=== PATIENT | female | born 1940 | race Caucasian/White ===

== ENCOUNTER → 2017-10-27 07:21 | Outpatient (CLI) | payer MEDICARE, OTHER, SELFPAY ==
[2017-10-27 07:24] VITALS: BP 123/83; PULSE 58; RESP 18; TEMP 36.5; O2SAT 95; BMI 43.5
[2017-10-27 07:43] LABS: Hematocrit 31.8 % (37-47); Hemoglobin 10.1 g/dl (12.0-15.0); Mean Corp Hgb Conc 31.8 g/gl (32-36); Mean Corpuscular Hgb 32.7 pg (27.0-32.0); Mean Corpuscular Volume 102.9 fL (81-99); Mean Platelet Vol. 10.1 fl (6.2-12.0); Platelet Count 235 K/mm3 (150-450); RBC Distribution Width CV 13.3 % (11.6-14.6); RBC Distribution Width SD 48.9 fl (35.1-43.9); Red Blood Count 3.09 M/mm3 (4.2-5.4); White Blood Count 5.9 K/mm3 (4.4-11.0)
[2017-10-27 07:44] LABS: Scan Indicated on CBC? Y/N NO
[2017-10-27 07:54] LABS: Albumin, Serum 3.2 g/dL (3.2-5.0); BUN 90 mg/dL (7-18); BUN/Creat Ratio 29.5 RATIO (10-20); Calcium,Total 9.5 mg/dL (8.5-10.1); Chloride 105 mmol/L (98-107); Creatinine, Serum 3.05 mg/dL (0.55-1.02); EST Glomerular Filtration Rate 16 mL/min (>60); Est Glom Filt Rate - Afr Amer 19 mL/min (>60); Estimated Creatinine Clearance 14.46 ml/min; Glucose 167 mg/dL (74-106); Phosphorus 4.6 mg/dL (2.5-4.9); Potassium 3.7 mmol/L (3.5-5.1); Sodium Level 141 mmol/L (136-145)
== END ==
PROVIDERS: Visit Provider Internal Medicine Nephrology
DX: N18.4 Chronic kidney disease, stage 4 (severe) (principal); D63.1 Anemia in chronic kidney disease
CPT/HCPCS: 36415; 80069; 85027; 96372; J0885

== ENCOUNTER → 2017-11-10 07:25 | Outpatient (CLI) | payer MEDICARE, OTHER, SELFPAY ==
[2017-10-27 07:24] VITALS: BP 123/83; BMI 43.5
[2017-11-10 07:35] VITALS: BP 130/59; PULSE 80; RESP 16; TEMP 36.7; O2SAT 98; BMI 42.7
[2017-11-10 07:47] LABS: Hematocrit 33.4 % (37-47); Hemoglobin 10.3 g/dl (12.0-15.0)
== END ==
PROVIDERS: Visit Provider Internal Medicine Nephrology
DX: N18.4 Chronic kidney disease, stage 4 (severe) (principal); D63.1 Anemia in chronic kidney disease
CPT/HCPCS: 36415; 85014; 85018; 96372; J0885

== ENCOUNTER → 2017-11-24 07:18 | Outpatient (CLI) | payer MEDICARE, OTHER, SELFPAY ==
[2017-11-24 07:31] VITALS: BP 133/58; PULSE 70; RESP 18; TEMP 36.6; O2SAT 97
[2017-11-24 07:43] LABS: Absolute Lymphocyte Count 1.76 X10^3/ul (0.83-4.51); Absolute Neutrophil Count 5.6 X10^3/uL (2.0-7.7); Basophil# 0.02 X10^3/uL; Basophil% 0.2 % (0-1); Eosinophil# 0.39 X10^3/uL; Eosinophils% 4.7 % (0-5); Hematocrit 31.1 % (37-47); Hemoglobin 9.7 g/dl (12.0-15.0); Lymphocyte # 1.76 X10^3/ul (4.0); Lymphocyte % 21.2 % (19-41); Mean Corp Hgb Conc 31.2 g/gl (32-36); Mean Corpuscular Hgb 31.9 pg (27.0-32.0); Mean Corpuscular Volume 102.3 fL (81-99); Mean Platelet Vol. 9.6 fl (6.2-12.0); Monocyte# 0.55 X10^3/uL; Monocyte% 6.6 % (0-10); Neutrophil # 5.56 X10^3/uL (2.7-7.7); Neutrophil % 66.9 % (47-70); Platelet Count 268 K/mm3 (150-450); RBC Distribution Width CV 14.6 % (11.6-14.6); RBC Distribution Width SD 54.6 fl (35.1-43.9); Red Blood Count 3.04 M/mm3 (4.2-5.4); White Blood Count 8.3 K/mm3 (4.4-11.0)
[2017-11-24 07:44] LABS: POSITIVE COUNT NO; POSITIVE DIFFERENTIAL NO; POSITIVE MORPHOLOGY NO
[2017-11-24 07:57] LABS: Albumin, Serum 2.8 g/dL (3.2-5.0); BUN 66 mg/dL (7-18); BUN/Creat Ratio 29.1 RATIO (10-20); Calcium,Total 8.3 mg/dL (8.5-10.1); Chloride 112 mmol/L (98-107); Creatinine, Serum 2.27 mg/dL (0.55-1.02); EST Glomerular Filtration Rate 22 mL/min (>60); Est Glom Filt Rate - Afr Amer 27 mL/min (>60); Ferritin 101 ng/mL (8-252); Glucose 129 mg/dL (74-106); Iron 58 ug/dL (50-170); Iron Binding Capacity,Total 240 ug/dL (250-450); PERCENT IRON SATURATION 24.2 % (15.0-55.0); Phosphorus 2.1 mg/dL (2.5-4.9); Potassium 4.4 mmol/L (3.5-5.1); Sodium Level 143 mmol/L (136-145)
== END ==
PROVIDERS: Visit Provider Internal Medicine Nephrology
DX: N18.4 Chronic kidney disease, stage 4 (severe) (principal); D63.1 Anemia in chronic kidney disease
CPT/HCPCS: 36415; 80069; 82728; 83540; 83550; 85025; 96372; J0885

== ENCOUNTER → 2017-12-08 07:04 | Outpatient (CLI) | payer MEDICARE, OTHER, SELFPAY ==
[2017-12-08 07:17] VITALS: BP 124/86; PULSE 73; RESP 16; TEMP 36.3; O2SAT 97; BMI 42.4
[2017-12-08 07:34] LABS: Hematocrit 32.1 % (37-47)
== END ==
PROVIDERS: Visit Provider Internal Medicine Nephrology
DX: N18.4 Chronic kidney disease, stage 4 (severe) (principal); D63.1 Anemia in chronic kidney disease
CPT/HCPCS: 36415; 85014; 85018; 96372; J0885

== ENCOUNTER → 2017-12-22 07:21 | Outpatient (CLI) | payer MEDICARE, OTHER, SELFPAY ==
[2017-12-22 07:37] VITALS: BP 113/52; PULSE 68; RESP 18; TEMP 36.8; O2SAT 96; BMI 42.7
[2017-12-22 07:41] LABS: Hematocrit 31.2 % (37-47); Hemoglobin 9.9 g/dl (12.0-15.0); Mean Corp Hgb Conc 31.7 g/gl (32-36); Mean Corpuscular Hgb 32.7 pg (27.0-32.0); Mean Platelet Vol. 10.1 fl (6.2-12.0); Platelet Count 235 K/mm3 (150-450); RBC Distribution Width CV 13.3 % (11.6-14.6); RBC Distribution Width SD 49.2 fl (35.1-43.9); Red Blood Count 3.03 M/mm3 (4.2-5.4); White Blood Count 7.5 K/mm3 (4.4-11.0)
[2017-12-22 07:42] LABS: Scan Indicated on CBC? Y/N NO
[2017-12-22 07:53] LABS: BUN 81 mg/dL (7-18); BUN/Creat Ratio 27.9 RATIO (10-20); Calcium,Total 9.5 mg/dL (8.5-10.1); Chloride 107 mmol/L (98-107); EST Glomerular Filtration Rate 17 mL/min (>60); Est Glom Filt Rate - Afr Amer 20 mL/min (>60); Estimated Creatinine Clearance 15.21 ml/min; Glucose 138 mg/dL (74-106); Phosphorus 3.6 mg/dL (2.5-4.9); Potassium 3.9 mmol/L (3.5-5.1); Sodium Level 142 mmol/L (136-145)
== END ==
PROVIDERS: Visit Provider Internal Medicine Nephrology
DX: N18.4 Chronic kidney disease, stage 4 (severe) (principal); D63.1 Anemia in chronic kidney disease
CPT/HCPCS: 36415; 80069; 85027; 96372; J0885

== ENCOUNTER → 2017-12-30 08:10 | Outpatient (CLI) | payer MEDICARE, OTHER, SELFPAY ==
[2017-12-30 09:30] LABS: ALB/GLOB Ratio 0.9 RATIO (0.9-2.4); AST(SGOT) 12 U/L (15-37); Alanine Aminotransfer ALT/SGPT 24 U/L (13-56); Alkaline Phosphatase 76 U/L (45-117); Anion Gap 9 (5-15); BUN 79 mg/dL (7-18); Calcium,Total 9.8 mg/dL (8.5-10.1); Chloride 110 mmol/L (98-107); Creatinine, Serum 2.82 mg/dL (0.55-1.02); EST Glomerular Filtration Rate 17 mL/min (>60); Est Glom Filt Rate - Afr Amer 21 mL/min (>60); Globulin 3.2 g/dL (2.2-4.2); Glucose 150 mg/dL (74-106); Potassium 3.8 mmol/L (3.5-5.1); Protein, Total 6.2 g/dL (6.4-8.2); Sodium Level 144 mmol/L (136-145)
== END ==
PROVIDERS: Visit Provider Internal Medicine Endocrinology, Diabetes & Metabolism
DX: E11.65 Type 2 diabetes mellitus with hyperglycemia (principal); E78.2 Mixed hyperlipidemia; I10 Essential (primary) hypertension; Z79.899 Other long term (current) drug therapy
CPT/HCPCS: 36415; 80053; 83036

== ENCOUNTER → 2018-01-05 07:14 | Outpatient (CLI) | payer MEDICARE, OTHER, SELFPAY ==
[2018-01-05 07:31] LABS: Hematocrit 31.5 % (37-47); Hemoglobin 9.8 g/dl (12.0-15.0)
[2018-01-05 07:38] VITALS: BP 114/63; PULSE 73; RESP 16; TEMP 36.8
== END ==
PROVIDERS: Visit Provider Internal Medicine Nephrology
DX: N18.4 Chronic kidney disease, stage 4 (severe) (principal); D63.1 Anemia in chronic kidney disease
CPT/HCPCS: 36415; 85014; 85018; 96372; J0885

== ENCOUNTER → 2018-01-19 07:14 | Outpatient (CLI) | payer MEDICARE, OTHER, SELFPAY ==
[2018-01-19 07:32] LABS: Hematocrit 31.8 % (37-47); Hemoglobin 9.9 g/dl (12.0-15.0)
[2018-01-19 07:37] VITALS: BP 135/74; PULSE 76; RESP 16; TEMP 36.9; O2SAT 98; BMI 42.7
[2018-01-19 07:45] LABS: Albumin, Serum 3.1 g/dL (3.2-5.0); BUN 82 mg/dL (7-18); BUN/Creat Ratio 28.5 RATIO (10-20); Calcium,Total 9.7 mg/dL (8.5-10.1); Chloride 110 mmol/L (98-107); Creatinine, Serum 2.88 mg/dL (0.55-1.02); EST Glomerular Filtration Rate 17 mL/min (>60); Est Glom Filt Rate - Afr Amer 20 mL/min (>60); Estimated Creatinine Clearance 15.07 ml/min; Glucose 224 mg/dL (74-106); Phosphorus 3.5 mg/dL (2.5-4.9); Potassium 3.9 mmol/L (3.5-5.1); Sodium Level 142 mmol/L (136-145)
== END ==
PROVIDERS: Visit Provider Internal Medicine Nephrology
DX: N18.4 Chronic kidney disease, stage 4 (severe) (principal); D63.1 Anemia in chronic kidney disease
CPT/HCPCS: 36415; 80069; 85014; 85018; 96372; J0885

== ENCOUNTER → 2018-02-02 07:12 | Outpatient (CLI) | payer MEDICARE, OTHER, SELFPAY ==
[2018-02-02 07:25] VITALS: BP 115/67; PULSE 80; RESP 16; TEMP 36.4; BMI 42.7
[2018-02-02 07:40] LABS: Hematocrit 31.9 % (37-47); Hemoglobin 9.9 g/dl (12.0-15.0); Mean Corpuscular Hgb 31.2 pg (27.0-32.0); Mean Corpuscular Volume 100.6 fL (81-99); Mean Platelet Vol. 10.3 fl (6.2-12.0); Platelet Count 239 K/mm3 (150-450); RBC Distribution Width CV 13.6 % (11.6-14.6); RBC Distribution Width SD 49.7 fl (35.1-43.9); Red Blood Count 3.17 M/mm3 (4.2-5.4); White Blood Count 7.2 K/mm3 (4.4-11.0)
[2018-02-02 08:00] LABS: Scan Indicated on CBC? Y/N NO
== END ==
PROVIDERS: Visit Provider Internal Medicine Nephrology
DX: N18.3 Chronic kidney disease, stage 3 (moderate) (principal); D63.1 Anemia in chronic kidney disease
CPT/HCPCS: 36415; 85027; 96372; J0885

== ENCOUNTER → 2018-02-16 07:11 | Outpatient (CLI) | payer MEDICARE, OTHER, SELFPAY ==
[2018-02-16 07:34] VITALS: BP 147/58; PULSE 70; RESP 16; TEMP 36.6; O2SAT 95; BMI 42.7
[2018-02-16 08:18] LABS: Absolute Lymphocyte Count 1.42 X10^3/ul (0.83-4.51); Absolute Neutrophil Count 4.3 X10^3/uL (2.0-7.7); Basophil# 0.04 X10^3/uL; Basophil% 0.6 % (0-1); Eosinophil# 0.35 X10^3/uL; Eosinophils% 5.3 % (0-5); Hematocrit 31.1 % (37-47); Hemoglobin 9.8 g/dl (12.0-15.0); Lymphocyte # 1.42 X10^3/ul (4.0); Lymphocyte % 21.6 % (19-41); Mean Corp Hgb Conc 31.5 g/gl (32-36); Mean Corpuscular Hgb 31.4 pg (27.0-32.0); Mean Corpuscular Volume 99.7 fL (81-99); Monocyte% 7.6 % (0-10); Neutrophil # 4.25 X10^3/uL (2.7-7.7); Neutrophil % 64.9 % (47-70); Platelet Count 237 K/mm3 (150-450); RBC Distribution Width CV 13.7 % (11.6-14.6); RBC Distribution Width SD 50.3 fl (35.1-43.9); Red Blood Count 3.12 M/mm3 (4.2-5.4); White Blood Count 6.6 K/mm3 (4.4-11.0)
[2018-02-16 08:19] LABS: POSITIVE COUNT NO; POSITIVE DIFFERENTIAL NO; POSITIVE MORPHOLOGY NO
[2018-02-16 08:32] LABS: Albumin, Serum 3.2 g/dL (3.2-5.0); BUN 78 mg/dL (7-18); BUN/Creat Ratio 28.3 RATIO (10-20); Chloride 109 mmol/L (98-107); Creatinine, Serum 2.76 mg/dL (0.55-1.02); EST Glomerular Filtration Rate 18 mL/min (>60); Est Glom Filt Rate - Afr Amer 21 mL/min (>60); Estimated Creatinine Clearance 15.73 ml/min; Glucose 77 mg/dL (74-106); Iron 66 ug/dL (50-170); Iron Binding Capacity,Total 231 ug/dL (250-450); Magnesium 1.7 mg/dL (1.6-2.6); PERCENT IRON SATURATION 28.6 % (15.0-55.0); Phosphorus 3.1 mg/dL (2.5-4.9); Potassium 3.7 mmol/L (3.5-5.1); Sodium Level 142 mmol/L (136-145)
[2018-02-16 11:32] LABS: Protein:Creat Ratio 166 mg/g CRE (0-200)
[2018-02-16 12:30] LABS: Vitamin B12 224 pg/mL (211-911); Vitamin D,25 Hydroxy 14.9 ng/mL (29.95-100.01)
== END ==
PROVIDERS: Internal Medicine Nephrology; Visit Provider Internal Medicine Nephrology
DX: N18.4 Chronic kidney disease, stage 4 (severe) (principal); D63.1 Anemia in chronic kidney disease
CPT/HCPCS: 36415; 80069; 82306; 82570; 82607; 82746; 83540; 83550; 83735; 83970; 84156; 85025; 96372; J0885

== ENCOUNTER → 2018-03-02 11:23 | Outpatient (CLI) | payer MEDICARE, OTHER, SELFPAY ==
[2018-03-02 11:31] VITALS: BP 131/52; PULSE 62; RESP 16; BMI 42.7
[2018-03-02 11:36] LABS: Hematocrit 32.6 % (37-47); Hemoglobin 10.2 g/dl (12.0-15.0); Mean Corp Hgb Conc 31.3 g/gl (32-36); Mean Corpuscular Hgb 31.7 pg (27.0-32.0); Mean Corpuscular Volume 101.2 fL (81-99); Mean Platelet Vol. 9.7 fl (6.2-12.0); Platelet Count 240 K/mm3 (150-450); RBC Distribution Width CV 14.1 % (11.6-14.6); RBC Distribution Width SD 52.3 fl (35.1-43.9); Red Blood Count 3.22 M/mm3 (4.2-5.4)
[2018-03-02 11:39] LABS: Scan Indicated on CBC? Y/N NO
== END ==
PROVIDERS: Visit Provider Internal Medicine Nephrology
DX: N18.4 Chronic kidney disease, stage 4 (severe) (principal); D63.1 Anemia in chronic kidney disease
CPT/HCPCS: 36415; 85027; 96372; J0885

== ENCOUNTER → 2018-03-16 11:16 | Outpatient (CLI) | payer MEDICARE, OTHER, SELFPAY ==
[2018-03-16 11:47] LABS: Hematocrit 31.6 % (37-47)
[2018-03-16 11:56] LABS: Albumin, Serum 3.3 g/dL (3.2-5.0); BUN 84 mg/dL (7-18); BUN/Creat Ratio 28.5 RATIO (10-20); Calcium,Total 9.2 mg/dL (8.5-10.1); Chloride 108 mmol/L (98-107); Creatinine, Serum 2.95 mg/dL (0.55-1.02); EST Glomerular Filtration Rate 16 mL/min (>60); Est Glom Filt Rate - Afr Amer 20 mL/min (>60); Glucose 122 mg/dL (74-106); Phosphorus 3.7 mg/dL (2.5-4.9); Potassium 3.8 mmol/L (3.5-5.1); Sodium Level 142 mmol/L (136-145)
== END ==
PROVIDERS: Visit Provider Internal Medicine Nephrology
DX: N18.4 Chronic kidney disease, stage 4 (severe) (principal); D63.1 Anemia in chronic kidney disease
CPT/HCPCS: 36415; 80069; 85014; 85018; 96372; J0885

== ENCOUNTER → 2018-03-30 11:16 | Outpatient (CLI) | payer MEDICARE, OTHER, SELFPAY ==
[2018-03-30 12:10] LABS: ALB/GLOB Ratio 0.9 RATIO (0.9-2.4); AST(SGOT) 14 U/L (15-37); Alanine Aminotransfer ALT/SGPT 24 U/L (13-56); Albumin, Serum 3.3 g/dL (3.2-5.0); Alkaline Phosphatase 72 U/L (45-117); Anion Gap 9 (5-15); BUN 86 mg/dL (7-18); BUN/Creat Ratio 26.8 RATIO (10-20); Calcium,Total 9.7 mg/dL (8.5-10.1); Chloride 107 mmol/L (98-107); Creatinine, Serum 3.21 mg/dL (0.55-1.02); EST Glomerular Filtration Rate 15 mL/min (>60); Est Glom Filt Rate - Afr Amer 18 mL/min (>60); Globulin 3.6 g/dL (2.2-4.2); Glucose 209 mg/dL (74-106); Potassium 3.8 mmol/L (3.5-5.1); Protein, Total 6.9 g/dL (6.4-8.2); Sodium Level 141 mmol/L (136-145)
[2018-03-30 12:19] LABS: Hemoglobin A1c 5.9 % (4.2-6.3)
[2018-03-30 12:24] LABS: Absolute Lymphocyte Count 0.36 X10^3/ul (0.83-4.51); Absolute Neutrophil Count 9.1 X10^3/uL (2.0-7.7); Basophil# 0.01 X10^3/uL; Basophil% 0.1 % (0-1); Eosinophil# 0.08 X10^3/uL; Eosinophils% 0.8 % (0-5); Hemoglobin 10.5 g/dl (12.0-15.0); Lymphocyte # 0.36 X10^3/ul (4.0); Lymphocyte % 3.6 % (19-41); Mean Corp Hgb Conc 30.9 g/gl (32-36); Mean Corpuscular Hgb 31.2 pg (27.0-32.0); Mean Corpuscular Volume 100.9 fL (81-99); Mean Platelet Vol. 10.5 fl (6.2-12.0); Monocyte# 0.59 X10^3/uL; Monocyte% 5.8 % (0-10); Neutrophil # 9.06 X10^3/uL (2.7-7.7); Neutrophil % 89.5 % (47-70); Platelet Count 243 K/mm3 (150-450); RBC Distribution Width CV 13.9 % (11.6-14.6); RBC Distribution Width SD 51.1 fl (35.1-43.9); Red Blood Count 3.37 M/mm3 (4.2-5.4); White Blood Count 10.1 K/mm3 (4.4-11.0)
[2018-03-30 12:25] LABS: Differential Indicated SCAN CRITERIA MET; POSITIVE COUNT NO; POSITIVE DIFFERENTIAL YES; POSITIVE MORPHOLOGY NO
[2018-03-30 12:35] VITALS: BP 134/82; PULSE 82; RESP 18; TEMP 37; O2SAT 94
== END ==
PROVIDERS: Internal Medicine Endocrinology, Diabetes & Metabolism; Visit Provider Internal Medicine Nephrology
DX: E11.65 Type 2 diabetes mellitus with hyperglycemia (principal); Z79.899 Other long term (current) drug therapy; I10 Essential (primary) hypertension; E78.2 Mixed hyperlipidemia; N18.4 Chronic kidney disease, stage 4 (severe); D63.1 Anemia in chronic kidney disease
CPT/HCPCS: 36415; 80053; 83036; 85025; 96372; J0885

== ENCOUNTER → 2018-04-13 11:17 | Outpatient (CLI) | payer MEDICARE, OTHER, SELFPAY ==
[2018-04-13 11:32] VITALS: BP 114/68; PULSE 61; RESP 16; TEMP 36.2; O2SAT 96; BMI 42.7
[2018-04-13 11:39] LABS: Hematocrit 33.6 % (37-47); Hemoglobin 10.6 g/dl (12.0-15.0)
[2018-04-13 11:59] LABS: Albumin, Serum 3.4 g/dL (3.2-5.0); BUN 83 mg/dL (7-18); BUN/Creat Ratio 28.7 RATIO (10-20); Calcium,Total 11.1 mg/dL (8.5-10.1); Chloride 108 mmol/L (98-107); Creatinine, Serum 2.89 mg/dL (0.55-1.02); EST Glomerular Filtration Rate 17 mL/min (>60); Est Glom Filt Rate - Afr Amer 20 mL/min (>60); Estimated Creatinine Clearance 15.02 ml/min; Glucose 78 mg/dL (74-106); Phosphorus 3.7 mg/dL (2.5-4.9); Potassium 3.9 mmol/L (3.5-5.1); Sodium Level 145 mmol/L (136-145)
== END ==
PROVIDERS: Visit Provider Internal Medicine Nephrology
DX: N18.4 Chronic kidney disease, stage 4 (severe) (principal); D63.1 Anemia in chronic kidney disease
CPT/HCPCS: 36415; 80069; 85014; 85018; 96372; J0885

== ENCOUNTER → 2018-04-27 11:10 | Outpatient (CLI) | payer MEDICARE, OTHER, SELFPAY ==
[2018-04-27 11:40] LABS: Absolute Lymphocyte Count 1.66 X10^3/ul (0.83-4.51); Absolute Neutrophil Count 3.9 X10^3/uL (2.0-7.7); Basophil# 0.05 X10^3/uL; Basophil% 0.8 % (0-1); Eosinophil# 0.35 X10^3/uL; Eosinophils% 5.3 % (0-5); Hematocrit 34.1 % (37-47); Hemoglobin 10.8 g/dl (12.0-15.0); Lymphocyte # 1.66 X10^3/ul (4.0); Lymphocyte % 25.3 % (19-41); Mean Corp Hgb Conc 31.7 g/gl (32-36); Mean Corpuscular Hgb 32.5 pg (27.0-32.0); Mean Corpuscular Volume 102.7 fL (81-99); Mean Platelet Vol. 10.5 fl (6.2-12.0); Monocyte# 0.57 X10^3/uL; Monocyte% 8.7 % (0-10); Neutrophil % 59.6 % (47-70); POSITIVE COUNT NO; POSITIVE DIFFERENTIAL NO; POSITIVE MORPHOLOGY NO; Platelet Count 234 K/mm3 (150-450); RBC Distribution Width CV 13.5 % (11.6-14.6); RBC Distribution Width SD 49.5 fl (35.1-43.9); Red Blood Count 3.32 M/mm3 (4.2-5.4); White Blood Count 6.6 K/mm3 (4.4-11.0)
== END ==
PROVIDERS: Visit Provider Internal Medicine Nephrology
DX: N18.4 Chronic kidney disease, stage 4 (severe) (principal); D63.1 Anemia in chronic kidney disease
CPT/HCPCS: 36415; 85025; 96372; J0885

== ENCOUNTER → 2018-05-11 08:13 | Outpatient (CLI) | payer MEDICARE, OTHER, SELFPAY ==
[2018-05-11 08:23] VITALS: BP 138/57; PULSE 64; RESP 18; TEMP 36.3; O2SAT 96; BMI 42.7
[2018-05-11 08:46] LABS: Hematocrit 32.1 % (37-47); Hemoglobin 10.4 g/dl (12.0-15.0)
[2018-05-11 08:49] LABS: Albumin, Serum 3.1 g/dL (3.2-5.0); BUN 80 mg/dL (7-18); BUN/Creat Ratio 25.8 RATIO (10-20); Calcium,Total 10.2 mg/dL (8.5-10.1); Chloride 107 mmol/L (98-107); EST Glomerular Filtration Rate 15 mL/min (>60); Est Glom Filt Rate - Afr Amer 19 mL/min (>60); Glucose 156 mg/dL (74-106); Phosphorus 3.8 mg/dL (2.5-4.9); Potassium 3.9 mmol/L (3.5-5.1); Sodium Level 143 mmol/L (136-145)
== END ==
PROVIDERS: Internal Medicine Nephrology; Visit Provider Internal Medicine Nephrology
DX: N18.4 Chronic kidney disease, stage 4 (severe) (principal); D63.1 Anemia in chronic kidney disease
CPT/HCPCS: 36415; 80069; 85014; 85018; 96372; J0885

== ENCOUNTER → 2018-05-25 11:15 | Outpatient (CLI) | payer MEDICARE, OTHER, SELFPAY ==
[2018-05-25 11:52] VITALS: BP 117/102; PULSE 67; RESP 16; TEMP 36.2; O2SAT 97; BMI 42.7
[2018-05-25 11:52] LABS: Hematocrit 33.8 % (37-47); Hemoglobin 10.8 g/dl (12.0-15.0); Mean Corpuscular Volume 100.3 fL (81-99); Mean Platelet Vol. 10.1 fl (6.2-12.0); Platelet Count 245 K/mm3 (150-450); RBC Distribution Width CV 14.1 % (11.6-14.6); RBC Distribution Width SD 51.5 fl (35.1-43.9); Red Blood Count 3.37 M/mm3 (4.2-5.4); Scan Indicated on CBC? Y/N NO; White Blood Count 7.9 K/mm3 (4.4-11.0)
[2018-05-25 12:37] LABS: Albumin, Serum 3.5 g/dL (3.2-5.0); BUN 96 mg/dL (7-18); BUN/Creat Ratio 32.8 RATIO (10-20); Calcium,Total 10.7 mg/dL (8.5-10.1); Chloride 108 mmol/L (98-107); Creatinine, Serum 2.93 mg/dL (0.55-1.02); EST Glomerular Filtration Rate 17 mL/min (>60); Est Glom Filt Rate - Afr Amer 20 mL/min (>60); Estimated Creatinine Clearance 14.81 ml/min; Glucose 77 mg/dL (74-106); Phosphorus 3.9 mg/dL (2.5-4.9); Potassium 3.6 mmol/L (3.5-5.1); Sodium Level 143 mmol/L (136-145)
[2018-05-25 12:46] LABS: PTHIN 25.6 pg/mL (18.4-80.1); Vitamin D,25 Hydroxy 13.8 ng/mL (29.95-100.01)
[2018-05-25 13:10] LABS: Color, Urine Yellow (Yellow); Glucose, Dipstick Normal (Normal); Ketone-Dipstick Negative (Negative); Leukocyte Esterase-Dipstick 25 /ul (Negative); Nitrite-Dipstick Negative (Negative); Occult Blood-Urine Negative /ul (Negative); Protein-Dipstick Negative (Negative); Specific Gravity, Urine 1.015 (1.002-1.030); Urine Bilirubin Dipstick Negative (Negative); Urine Clarity Clear (Clear); Urine Urobilinogen Normal (Normal)
[2018-05-25 13:29] LABS: Microalbumin,Random Urine 6.5 mg/L (NO RANGE EST.); Protein, Urine (Random) < 6.0 mg/dL (<11.9); Protein:Creat Ratio 99 mg/g CRE (0-200)
[2018-05-25 14:29] LABS: Ferritin 118 ng/mL (8-252); Iron 88 ug/dL (50-170); Iron Binding Capacity,Total 267 ug/dL (250-450)
== END ==
PROVIDERS: Visit Provider Internal Medicine Nephrology
DX: N18.4 Chronic kidney disease, stage 4 (severe) (principal); N25.81 Secondary hyperparathyroidism of renal origin; D63.1 Anemia in chronic kidney disease
CPT/HCPCS: 36415; 80069; 81002; 82043; 82306; 82570; 82728; 83540; 83550; 83970; 84156; 85027; 96372; J0885

== ENCOUNTER → 2018-06-08 11:10 | Outpatient (CLI) | payer MEDICARE, OTHER, SELFPAY ==
[2018-06-08 11:40] VITALS: BP 107/51; PULSE 55; RESP 15; TEMP 36.2; O2SAT 92; BMI 42.7
[2018-06-08 11:57] LABS: Hematocrit 31.3 % (37-47); Hemoglobin 9.8 g/dl (12.0-15.0)
[2018-06-08 12:11] LABS: Hemoglobin A1c 6.4 % (4.2-6.3)
[2018-06-08 12:19] LABS: Anion Gap 10 (5-15); BUN 89 mg/dL (7-18); BUN/Creat Ratio 31.4 RATIO (10-20); Calcium,Total 8.1 mg/dL (8.5-10.1); Chloride 108 mmol/L (98-107); Creatinine, Serum 2.83 mg/dL (0.55-1.02); EST Glomerular Filtration Rate 17 mL/min (>60); Est Glom Filt Rate - Afr Amer 21 mL/min (>60); Estimated Creatinine Clearance 15.34 ml/min; Glucose 96 mg/dL (74-106); Potassium 3.7 mmol/L (3.5-5.1); Sodium Level 139 mmol/L (136-145); T4 Free Direct 1.04 ng/dL (0.76-1.46); Thyroid Stim Hormone (TSH) 0.93 uIU/mL (0.358-3.74)
== END ==
PROVIDERS: Internal Medicine Nephrology; Visit Provider Internal Medicine Nephrology
DX: N18.4 Chronic kidney disease, stage 4 (severe) (principal); D63.1 Anemia in chronic kidney disease; E11.65 Type 2 diabetes mellitus with hyperglycemia; E78.2 Mixed hyperlipidemia; Z79.899 Other long term (current) drug therapy
CPT/HCPCS: 80048; 83036; 84439; 84443; 85014; 85018; 96372; J0885

== ENCOUNTER → 2018-06-22 11:13 | Outpatient (CLI) | payer MEDICARE, OTHER, SELFPAY ==
[2018-06-22 11:22] VITALS: BP 148/69; PULSE 61; RESP 16; TEMP 36.6; O2SAT 93; BMI 42.7
[2018-06-22 11:35] LABS: Hematocrit 33.2 % (37-47); Hemoglobin 10.2 g/dl (12.0-15.0); Mean Corp Hgb Conc 30.7 g/gl (32-36); Mean Corpuscular Hgb 31.4 pg (27.0-32.0); Mean Corpuscular Volume 102.2 fL (81-99); Mean Platelet Vol. 9.6 fl (6.2-12.0); Platelet Count 237 K/mm3 (150-450); RBC Distribution Width CV 14.3 % (11.6-14.6); RBC Distribution Width SD 53.4 fl (35.1-43.9); Red Blood Count 3.25 M/mm3 (4.2-5.4); White Blood Count 7.2 K/mm3 (4.4-11.0)
[2018-06-22 11:39] LABS: Scan Indicated on CBC? Y/N NO
[2018-06-22 11:47] LABS: Albumin, Serum 3.1 g/dL (3.2-5.0); BUN 76 mg/dL (7-18); BUN/Creat Ratio 30.8 RATIO (10-20); Calcium,Total 9.1 mg/dL (8.5-10.1); Chloride 108 mmol/L (98-107); Creatinine, Serum 2.47 mg/dL (0.55-1.02); EST Glomerular Filtration Rate 20 mL/min (>60); Est Glom Filt Rate - Afr Amer 24 mL/min (>60); Estimated Creatinine Clearance 17.57 ml/min; Glucose 137 mg/dL (74-106); Potassium 3.9 mmol/L (3.5-5.1); Sodium Level 145 mmol/L (136-145)
== END ==
PROVIDERS: Visit Provider Internal Medicine Nephrology
DX: N18.4 Chronic kidney disease, stage 4 (severe) (principal); D63.1 Anemia in chronic kidney disease
CPT/HCPCS: 36415; 80069; 85027; 96372; J0885

== ENCOUNTER → 2018-07-06 07:36 | Outpatient (CLI) | payer MEDICARE, OTHER, SELFPAY ==
[2018-07-06 07:43] VITALS: BP 122/72; PULSE 64; RESP 16; TEMP 36.1; O2SAT 97; BMI 42.7
[2018-07-06 08:09] LABS: Hematocrit 31.7 % (37-47); Hemoglobin 9.8 g/dl (12.0-15.0)
== END ==
PROVIDERS: Internal Medicine Nephrology; Referring Provider Internal Medicine Nephrology; Visit Provider Internal Medicine Nephrology
DX: N18.4 Chronic kidney disease, stage 4 (severe) (principal); D63.1 Anemia in chronic kidney disease
CPT/HCPCS: 36415; 85014; 85018; 96372; J0885

== ENCOUNTER → 2018-07-20 11:16 | Outpatient (CLI) | payer MEDICARE, OTHER, SELFPAY ==
[2018-07-20 11:32] VITALS: BP 132/95; PULSE 56; RESP 16; TEMP 36.6; O2SAT 98; BMI 42.7
[2018-07-20 11:49] LABS: Hematocrit 32.1 % (37-47); Hemoglobin 9.8 g/dl (12.0-15.0); Mean Corp Hgb Conc 30.5 g/gl (32-36); Mean Corpuscular Hgb 31.4 pg (27.0-32.0); Mean Corpuscular Volume 102.9 fL (81-99); Mean Platelet Vol. 10.4 fl (6.2-12.0); Platelet Count 238 K/mm3 (150-450); RBC Distribution Width SD 52.8 fl (35.1-43.9); Red Blood Count 3.12 M/mm3 (4.2-5.4); White Blood Count 7.6 K/mm3 (4.4-11.0)
[2018-07-20 11:50] LABS: Scan Indicated on CBC? Y/N NO
[2018-07-20 12:07] LABS: Color, Urine Yellow (Yellow); Glucose, Dipstick Normal (Normal); Ketone-Dipstick Negative (Negative); Leukocyte Esterase-Dipstick Negative /ul (Negative); Nitrite-Dipstick Negative (Negative); Occult Blood-Urine Negative /ul (Negative); Protein-Dipstick Negative (Negative); Urine Bilirubin Dipstick Negative (Negative); Urine Clarity Clear (Clear); Urine Urobilinogen Normal (Normal)
[2018-07-20 12:09] LABS: Albumin, Serum 3.4 g/dL (3.2-5.0); BUN 73 mg/dL (7-18); BUN/Creat Ratio 29.3 RATIO (10-20); Calcium,Total 8.8 mg/dL (8.5-10.1); Chloride 111 mmol/L (98-107); Creatinine, Serum 2.49 mg/dL (0.55-1.02); EST Glomerular Filtration Rate 20 mL/min (>60); Est Glom Filt Rate - Afr Amer 24 mL/min (>60); Estimated Creatinine Clearance 17.43 ml/min; Glucose 91 mg/dL (74-106); Phosphorus 3.2 mg/dL (2.5-4.9); Potassium 3.9 mmol/L (3.5-5.1); Sodium Level 143 mmol/L (136-145)
[2018-07-20 12:18] LABS: Vitamin D,25 Hydroxy 15.9 ng/mL (29.95-100.01)
[2018-07-20 12:34] LABS: Microalbumin,Random Urine 6.2 mg/L (NO RANGE EST.); Microalbumin:Creatinine Ratio 15.4 mg/g CRE (<30 mg/g CRE); Protein, Urine (Random) < 6.0 mg/dL (<11.9)
== END ==
PROVIDERS: Referring Provider Internal Medicine Nephrology; Visit Provider Internal Medicine Nephrology
DX: N18.4 Chronic kidney disease, stage 4 (severe) (principal); D63.1 Anemia in chronic kidney disease; N25.81 Secondary hyperparathyroidism of renal origin
CPT/HCPCS: 36415; 80069; 81002; 82043; 82306; 82570; 83970; 84156; 85027; 96372; J0885

== ENCOUNTER → 2018-08-03 11:14 | Outpatient (CLI) | payer MEDICARE, OTHER, SELFPAY ==
[2018-08-01 10:55] VITALS: BMI 43.5
[2018-08-03 11:33] LABS: Hematocrit 33.6 % (37-47); Hemoglobin 10.2 g/dl (12.0-15.0)
== END ==
PROVIDERS: Referring Provider Internal Medicine Nephrology; Visit Provider Internal Medicine Nephrology
DX: N18.4 Chronic kidney disease, stage 4 (severe) (principal); D63.1 Anemia in chronic kidney disease
CPT/HCPCS: 36415; 85014; 85018; 96372; J0885

== ENCOUNTER → 2018-08-16 11:14 | Outpatient (CLI) | payer MEDICARE, OTHER, SELFPAY ==
[2018-08-01 10:55] VITALS: BMI 43.5
[2018-08-16 11:49] LABS: Absolute Lymphocyte Count 1.39 X10^3/ul (0.83-4.51); Absolute Neutrophil Count 3.9 X10^3/uL (2.0-7.7); Basophil# 0.03 X10^3/uL; Basophil% 0.5 % (0-1); Eosinophil# 0.27 X10^3/uL; Eosinophils% 4.3 % (0-5); Hematocrit 32.6 % (37-47); Hemoglobin 10.3 g/dl (12.0-15.0); Lymphocyte # 1.39 X10^3/ul (4.0); Lymphocyte % 22.2 % (19-41); Mean Corp Hgb Conc 31.6 g/gl (32-36); Mean Corpuscular Hgb 31.8 pg (27.0-32.0); Mean Corpuscular Volume 100.6 fL (81-99); Mean Platelet Vol. 9.3 fl (6.2-12.0); Monocyte# 0.64 X10^3/uL; Monocyte% 10.2 % (0-10); Neutrophil # 3.92 X10^3/uL (2.7-7.7); Neutrophil % 62.6 % (47-70); POSITIVE COUNT NO; POSITIVE DIFFERENTIAL NO; POSITIVE MORPHOLOGY NO; Platelet Count 236 K/mm3 (150-450); RBC Distribution Width CV 13.6 % (11.6-14.6); RBC Distribution Width SD 50.4 fl (35.1-43.9); Red Blood Count 3.24 M/mm3 (4.2-5.4); White Blood Count 6.3 K/mm3 (4.4-11.0)
[2018-08-16 12:05] VITALS: BP 120/54; PULSE 54; RESP 14; TEMP 36.3; O2SAT 95; BMI 42.7
[2018-08-16 12:06] LABS: Albumin, Serum 3.3 g/dL (3.2-5.0); BUN 73 mg/dL (7-18); BUN/Creat Ratio 26.7 RATIO (10-20); Calcium,Total 9.1 mg/dL (8.5-10.1); Chloride 110 mmol/L (98-107); Creatinine, Serum 2.73 mg/dL (0.55-1.02); EST Glomerular Filtration Rate 18 mL/min (>60); Est Glom Filt Rate - Afr Amer 22 mL/min (>60); Glucose 65 mg/dL (74-106); Phosphorus 3.1 mg/dL (2.5-4.9); Potassium 3.8 mmol/L (3.5-5.1); Sodium Level 145 mmol/L (136-145)
--- OUTSIDE RECORDS SUMMARY | 2018-10-11 13:58 | XMS RPT_ITS ---
:1940 Author Organization [place] Support Name Relationship Address Phone REGGIE RYAN SLEEK FUNER Unavailable [address] [facility] + [place] [id number] BETTE THOMASYL Unavailable [address] + [place] [address] REGGIE DOYLEHAM SLEEK FUNER Unavailable [address] [facility] + [place] [address] BETTE THOMASYL Unavailable [address] + [place] [address] REGGIE YANIRAHAM SLEEK FUNER Unavailable [address] [facility] + [place] [address] BETTE THOMASYL Unavailable [address] + [place] [address] REGGIE BRADHAM SLEEK FUNER Unavailable [address] + [place] [address] MARTHA JANINE Unavailable [address] + [place] [address] REGGIE YANIRAHAM SLEEK FUNER Unavailable [address] [facility] + [place] [address] BETTE THOMASYL Unavailable [address] + [place] [address] REGGIE BRADHAM SLEEK FUNER Unavailable [address] + [place] [address] MARTHA JANINE Unavailable [address] + [place] [address] REGGIE BRADHAM SLEEK FUNER Unavailable [address] [facility] + [place] [address] YOUNG, JANINE Unavailable [address] + [place] [address] REGGIE BRADHAM SLEEK FUNER Unavailable [address] [facility] + [place] [address] YOUNG, JANINE Unavailable [address] + [place] [address] REGGIE BRADHAM SLEEK FUNER Unavailable [address] [facility] + [place] [address] YOUNG, JANINE Unavailable [address] + [place] [address] REGGIE BRADHAM SLEEK FUNER Unavailable [address] [facility] + [place] [address] YOUNG, JANINE Unavailable [address] + [place] [address] REGGIE BRADHAM SLEEK FUNER Unavailable [address] [facility] + [place] [address] YOUNG, NICHOLAS Unavailable [address] + [place] [address] REGGIE BRADHAM SLEEK FUNER Unavailable [address] [place] [address] + [place] [address] YOUNG, NICHOLAS Unavailable [address] + [place] [address] REGGIE BRADHAM SLEEK FUNER Unavailable [address] [facility] + [place] [address] YOUNG, NICHOLAS Unavailable [address] + [place] [address] REGGIE BRADHAM SLEEK FUNER Unavailable [address] [facility] + [place] [address] YOUNG, NICOHLAS Unavailable [address] + [place] [address] REGGIE BRADHAM SLEEK FUNER Unavailable [address] [place] [address] + [place] [address] YOUNG, NICHOLSA Unavailable [address] + [place] [address] REGGIE BRADHAM SLEEK FUNER Unavailable [address] [place] [address] + [place] [address] YOUNG, NICHOLAS Unavailable [address] + [place] [address] REGGIE BRADHAM SLEEK FUNER Unavailable [address] [facility] + [place] [address] MARTHA NICHOLAS Unavailable [address] + [place] [address] REGGIE BRADHAM SLEEK FUNER Unavailable [address] [facility] + [place] [address] YOUNG NICHOLAS Unavailable [address] + [place] [address] REGGIE BRADHAM SLEEK FUNER Unavailable [address] [facility] + [place] [address] MARTHA NICHOLAS Unavailable [address] + [place] [address] REGGIE BRADHAM SLEEK FUNER Unavailable [address] [facility] + [place] [address] MARTHA NICHOLAS Unavailable [address] + [place] [address] REGGIE BRADHAM SLEEK FUNER Unavailable [address] [facility] + [place] [address] MARTHA NICHOLAS Unavailable [address] + [place] [address] REGGIE BRADHAM SLEEK FUNER Unavailable [address] [facility] + [place] [address] MARTHA NICHOLAS Unavailable [address] + [place] [address] REGGIE BRADHAM SLEEK FUNER Unavailable [address] [facility] + [place] [address] YOUNG NICHOLAS Unavailable [address] + [place] [address] REGGIE BRADHAM SLEEK FUNER Unavailable [address] [facility] + [place] [address] YOUNG NICHOLAS Unavailable [address] + [place] [address] REGGIE BRADHAM SLEEK FUNER Unavailable [address] [facility] + [place] [address] BETTE THOMASRYL Unavailable [address] [facility] [facility] [address] + [place] [address] REGGIE RAMÍREZ FUNER Unavailable [address] [facility] + [place] [address] MARTHA NICHOLAS Unavailable [address] [facility] [facility] [address] + [place] [address] REGGIE RAMÍREZ FUNER Unavailable [address] [facility] + [place] [address] MARTHA NICHOLAS Unavailable [address] [facility] [facility] [address] + [place] [address] Care Team Providers Name Role Phone Sushil Odonnell Admitting Unavailable Sushil Odonnell Attending Unavailable Sly Pedersen Primary Care Unavailable Aziza Lester Attending Unavailable Aziza Lester Referring Unavailable Sly Pedersen Primary Care Unavailable Tanphaichitr, Natthavat Attending Unavailable Sly Pedersen Primary [facility] Unavailable Tanphaichitr, Natthavat Attending Unavailable Sly Pedersen Primary Care Unavailable Tanphaichitr, Natthavat Attending Unavailable Sly Pedersen Primary Care Unavailable Tanphaichitr, Natthavat Referring Unavailable Tanphaichitr, Natthavat Attending Unavailable Sly Pedersen [facility] Unavailable Tanphaichitr, Natthavat Attending Unavailable Tanphaichitr, Natthavat Referring Unavailable Sly Pedersen Primary Care Unavailable Tanphaichitr, Natthavat Attending Unavailable Tanphaichitr, Natthavat Referring Unavailable Sly Pedersen Primary Care Unavailable Tanphaichitr, Natthavat Attending Unavailable Tanphaichitr, Natthavat Referring Unavailable Sly Pedersen Primary Care Unavailable Tanphaichitr, Natthavat Attending Unavailable Tanphaichitr, Natthavat Referring Unavailable Sly Pedersen Primary Care Unavailable ZEV PEPE Attending Unavailable ZEV PEPE Referring Unavailable Sly Pedersen Primary [facility] Unavailable Tanphaichitr, Natthavat Attending Unavailable Tanphaichitr, Natthavat Referring Unavailable Sly Pedersen Primary Care Unavailable Tanphaichitr, Natthavat Attending Unavailable Tanphaichitr, Natthavat Referring Unavailable Sly Pedersen Primary Care Unavailable Tanphaichitr, Natthavat Attending Unavailable Tanphaichitr, Natthavat Referring Unavailable Pedersen, Sly Primary Care Unavailable Tanphaichitr, Natthavat Attending Unavailable Tanphaichitr, Natthavat Referring Unavailable Pedersen, Sly Primary Care Unavailable Tanphaichitr, Natthavat Attending Unavailable Tanphaichitr, Natthavat Referring Unavailable Pedersen, Sly Primary Care Unavailable Bakhous, Aziz Attending Unavailable Bakhous, Aziz Referring Unavailable Pedersen, Sly Primary Care Unavailable Bakhous, Aziz Attending Unavailable Bakhous, Aziz Referring Unavailable Pedersen, Sly Primary Care Unavailable Aly, Jayaprakash Attending Unavailable Aly, Jayaprakash Referring Unavailable Pedersen, Sly Primary Care Unavailable Aly, Jayaprakash Attending Unavailable Aly, Jayaprakash Referring Unavailable Pedersen, Sly Primary Care Unavailable Aly, Jayaprakash Attending Unavailable Aly, Jayaprakash Referring Unavailable Pedersen, Sly Primary Care Unavailable Bakhous, Aziz Attending Unavailable Bakhous, Aziz Referring Unavailable Pedersen, Sly Primary Care Unavailable Aly, Jayaprakash Consulting Unavailable Aly, Jayaprakash Attending Unavailable Aly, Jayaprakash Referring Unavailable Pedersen, Sly Primary Care Unavailable Bakhous, Aziz Attending Unavailable Bakhous, Aziz Referring Unavailable Pedersen, Sly Primary Care Unavailable Aly, Jayaprakash Attending Unavailable Aly, Jayaprakash Referring Unavailable Pedersne, Sly Primary Care Unavailable Bakhous, Aziz Attending Unavailable Bakhous, Aziz Referring Unavailable Pedersen, Sly Primary Care Unavailable Aly, Jayaprakash Consulting Unavailable Bakhous, Aziz Attending Unavailable Bakhous, Aziz Referring Unavailable Pedersen Sly Primary Care Unavailable Bakhous, Aziz Attending Unavailable Bakhous, Aziz Referring Unavailable Pedersen, Sly Primary Care Unavailable PROBLEMS PROBLEMS DATE TYPE CONDITION / CODE ATTENDING STATUS SOURCE Unknown D64.9 - Anemia, Aziza Lester Active [place] 8 unspecified / Community D64.9(ICD-10) Hospital Repository Unknown D63.1 - Anemia in [facility], Aziza Active [place] 8 chronic kidney disease / Community D63.1(ICD-10) Hospital Repository Unknown N18.4 - Chronic kidney Aziza Lester Active [place] 8 disease, stage 4 Community (severe) / N18.4(ICD-10) Hospital Repository Unknown 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 / Hospital N25.81(ICD-10) Repository Unknown E11.65 - Type 2 diabetes ZEV PEPE Active [place] 8 mellitus with Community hyperglycemia / Hospital E11.65(ICD-10) Repository Unknown E78.2 - Mixed ZEV PEPE Active [place] 8 hyperlipidemia / Community E78.2(ICD-10) Hospital Repository Unknown I10 - Essential ZEV PEEP Active [place] 8 (primary) hypertension / Community I10(ICD-10) Hospital Repository PROCEDURES PROCEDURES No Procedure Records FoundRESULTS RESULTS HH, HEMOGLOBIN AND Collected: 08/31/2018 Status: F Source: [place] HEMATOCRIT 11:18 AM [facility] REPOSITORY TYPE CODE TESTS RESULT OUT OF RANGE REFERENCE UNITS LAB L100.1300 12.0-15.0 g/dl Low HGB 10.3 LAB L100.1400 37-47 % Low HCT 33.7 Performed By: #### L100.0600 #### [facility] [address] [place] [address], [id number] CBC W/DIFF, AUTOMATED Collected: 08/16/2018 Status: F Source: [place] 11:38 AM [facility] REPOSITORY TYPE CODE TESTS RESULT OUT OF RANGE REFERENCE UNITS LAB L100.1000 4.4-11.0 K/mm3 Normal WBC 6.3 LAB L100.1200 4.2-5.4 M/mm3 Low RBC 3.24 LAB L100.1300 12.0-15.0 g/dl Low HGB 10.3 LAB L100.1400 37-47 % Low HCT 32.6 LAB L100.1500 81-99 fL High MCV 100.6 LAB L100.1600 27.0-32.0 pg Normal MCH 31.8 LAB L100.1700 32-36 g/gl Low MCHC 31.6 LAB L100.1810 11.6-14.6 % Normal RDW CV 13.6 LAB L100.1820 35.1-43.9 fl High RDW SD 50.4 LAB L100.1900 150-450 K/mm3 Normal PLT 236 LAB L100.2000 6.2-12.0 fl Normal MPV 9.3 LAB L100.2100 47-70 % Normal NEUT% 62.6 LAB L100.2200 19-41 % Normal LY% 22.2 LAB L100.2300 0-10 % High MONO% 10.2 LAB L100.2400 0-5 % Normal EO% 4.3 LAB L100.2500 0-1 % Normal BASO% 0.5 LAB L100.2550 0.0-0.9 % Normal IM GRAN % 0.200 Result Comment: IG% - Immature Granulocytes (promyelocytes, myelocytes and metamyelocytes) > 1% indicates that a LEFT SHIFT is Present. LAB L100.2620 2.0-7.7 X10 3/uL Normal Absolute Neut 3.9 LAB L100.2720 0.83-4.51 X10 3/ul Normal Absolute Lymph 1.39 Performed By: #### L100.0100 #### [facility] [address] [place], [place], [address] RENAL PROFILE Collected: 08/16/2018 Status: F Source: [place] 11:38 AM [facility] REPOSITORY TYPE CODE TESTS RESULT OUT OF RANGE REFERENCE UNITS LAB L501.0100 74-106 mg/dL Low GLU 65 Result Comment: Please note revised GLUCOSE reference range effective 2017. LAB L501.1000 7-18 mg/dL High BUN 73 LAB L501.1100 0.55-1.02 mg/dL High CREAT,SERUM 2.73 Result Comment: The validity of the calculated GFR AND GFRAA in patients over 70 years has not been determined. Clinical correlation is essential. LAB L501.1110 >60 mL/min Low EST GFR 18 Result Comment: Non- GFR Calc LAB L501.1115 >60 mL/min Low EST GFR - AA 22 Result Comment: GFR Calc LAB L501.1255 ml/min Normal Estimated CRCL 15.90 LAB L501.1300 10-20 RATIO High BUN/CRE 26.7 LAB L501.1800 3.2-5. g/dL Normal 0 ALB 3.3 LAB L501.2200 8.5-10 mg/dL Normal .1 CA 9.1 LAB L501.2300 2.5-4. mg/dL Normal 9 PHOS 3.1 LAB L501.5300 136-14 mmol/L Normal 5 NA 145 LAB L501.5600 3.5-5. mmol/L Normal 1 K 3.8 LAB L501.5900 98-107 mmol/L High CL 110 LAB L501.6100 21.0-3 mmol/L Normal 2.0 CO2 27.0 Performed By: #### L500.3600 #### [facility] [address] [place], [place], [address] HH, HEMOGLOBIN AND Collected: 08/03/2018 Status: F Source: [place] HEMATOCRIT 11:20 AM [facility] REPOSITORY TYPE CODE TESTS RESULT OUT OF RANGE REFERENCE UNITS LAB L100.1300 12.0-15.0 g/dl Low HGB 10.2 LAB L100.1400 37-47 % Low HCT 33.6 Performed By: #### L100.0600 #### [facility] [address] [place] [address], [id number] CBC-COMPLETE BLOOD CNT Collected: 07/20/2018 Status: F Source: [place] NO DIFF 11:20 AM [facility] REPOSITORY TYPE CODE TESTS RESULT OUT OF RANGE REFERENCE UNITS LAB L100.1000 4.4-11.0 K/mm3 Normal WBC 7.6 LAB L100.1200 4.2-5.4 M/mm3 Low RBC 3.12 LAB L100.1300 12.0-15.0 g/dl Low HGB 9.8 LAB L100.1400 37-47 % Low HCT 32.1 LAB L100.1500 81-99 fL High MCV 102.9 LAB L100.1600 27.0-32.0 pg Normal MCH 31.4 LAB L100.1700 32-36 g/gl Low MCHC 30.5 LAB L100.1810 11.6-14.6 % Normal RDW CV 14.0 LAB L100.1820 35.1-43.9 fl High RDW SD 52.8 LAB L100.1900 150-450 K/mm3 Normal PLT 238 LAB L100.2000 6.2-12.0 fl Normal MPV 10.4 Performed By: #### L100.0500 #### [facility] [address] [place], [address] URINALYSIS, ROUTINE Collected: 07/20/2018 Status: F Source: [place] (DIPSTICK) 11:20 AM [facility] REPOSITORY Order Comment: How was Urine Obtained? CLEAN CATCH TYPE CODE TESTS RESULT OUT OF RANGE REFERENCE UNITS LAB L400.3000 Yellow COLOR Normal Yellow LAB L400.3050 Clear Normal CLARITY Clear LAB L400.3200 Normal mg/dl Normal GLUCOSE, UR Normal LAB L400.3300 Negative mg/dL Normal BILIRUBIN URINE Negative LAB L400.3400 Negative mg/dl Normal KETONE UR Negative LAB L400.3465 1.002-1.030 Normal SP.GR. DIPSTX 1.010 LAB L400.3550 5.0 - 8.0 pH UR Normal 5.0 LAB L400.3600 Negative mg/dl PROT Normal DIPSTX Negative LAB L400.3700 Normal mg/dl Normal UROBILI Normal LAB L400.3750 Negative Normal NITRITE UR Negative LAB L400.3780 Negative /ul Normal OCCULT BLOOD-UR Negative LAB L400.3800 Negative /ul LEUK Normal ESTERASE Negative Performed By: #### L400.2010 #### [facility] [address] [place], [place], [address] RENAL PROFILE Collected: 07/20/2018 Status: F Source: [place] 11:20 AM [facility] REPOSITORY TYPE CODE TESTS RESULT OUT OF RANGE REFERENCE UNITS LAB L501.0100 74-106 mg/dL Normal GLU 91 Result Comment: Please note revised GLUCOSE reference range effective 2017. LAB L501.1000 7-18 mg/dL High BUN 73 LAB L501.1100 0.55-1.02 mg/dL High CREAT,SERUM 2.49 Result Comment: The validity of the calculated GFR AND GFRAA in patients over 70 years has not been determined. Clinical correlation is essential. LAB L501.1110 >60 mL/min Low EST GFR 20 Result Comment: Non- GFR Calc LAB L501.1115 >60 mL/min Low EST GFR - AA 24 Result Comment: GFR Calc LAB L501.1255 ml/min Normal Estimated CRCL 17.43 LAB L501.1300 10-20 RATIO High BUN/CRE 29.3 LAB L501.1800 3.2-5. g/dL Normal 0 ALB 3.4 LAB L501.2200 8.5-10 mg/dL Normal .1 CA 8.8 LAB L501.2300 2.5-4. mg/dL Normal 9 PHOS 3.2 LAB L501.5300 136-14 mmol/L Normal 5 NA 143 LAB L501.5600 3.5-5. mmol/L Normal 1 K 3.9 LAB L501.5900 98-107 mmol/L High CL 111 LAB L501.6100 21.0-3 mmol/L Normal 2.0 CO2 24.0 Performed By: #### L500.3600 #### [facility] [address] [place], [address] PTHIN Collected: 07/20/2018 Status: F Source: [place] 11:20 AM [facility] REPOSITORY TYPE CODE TESTS RESULT OUT OF RANGE REFERENCE UNITS LAB L509.1000 18.4-80.1 pg/mL High PTHIN 185.0 Performed By: #### L509.1000 #### [facility] [address] [place], [address] VITAMIN D,25 HYDROXY Collected: 07/20/2018 Status: F Source: [place] 11:20 AM [facility] REPOSITORY TYPE CODE TESTS RESULT OUT OF REFERENCE UNITS RANGE LAB L506.1000 29.95-100.01 ng/mL Low Vitamin D 15.9 25-OH Result Comment: Vitamin D 25(OH) Status Range Deficiency <20 ng/mL (50nmol/L) Insuffciency 20 - 30 ng/mL (50 - 75 nmol/L) Sufficiency 30 - 100 ng/mL (75 - 250 nmol/L) Toxicity >100 ng/mL (>250 nmol/L) Performed By: #### L506.1000 #### [facility] [address] [place], [address] PROTEIN+CREATININE Collected: Status: F Source: [place] RATIO,URINE 07/20/2018 11:20 AM [facility] REPOSITORY TYPE CODE TESTS RESULT OUT OF RANGE REFERENCE UNITS LAB L501.1200 NO RANGE EST. mg/dL 40.40 Normal UR CREAT LAB L501.1930 <11.9 mg/dL < 6.0 Normal PROTEIN,UR. RAN. LAB L501.1940 0-200 mg/g CRE Test Normal not performed PROT:CRE RATIO Performed By: #### L501.0900, L502.0250 #### [facility] [address] [facility] [place], [address] MICROALB:CREAT Collected: 07/20/2018 Status: F Source: [place] RATIO,RANDOM UR 11:20 AM [facility] REPOSITORY TYPE CODE TESTS RESULT OUT OF RANGE REFERENCE UNITS LAB L502.0500 NO RANGE EST. mg/L Normal 6.2 MICROALBUMIN ,UR LAB L502.0600 <30 mg/g CRE mg/g CRE Normal 15.4 MALB:CREAT Performed By: #### L501.0900, L502.0250 #### [facility] [address] [facility] [place], [address] HH, HEMOGLOBIN AND Collected: 07/06/2018 Status: F Source: [place] HEMATOCRIT 7:48 AM [facility] REPOSITORY TYPE CODE TESTS RESULT OUT OF RANGE REFERENCE UNITS LAB L100.1300 12.0-15.0 g/dl Low HGB 9.8 LAB L100.1400 37-47 % Low HCT 31.7 Performed By: #### L100.0600 #### [facility] [address] [facility]. [place], [place], [address] CBC-COMPLETE BLOOD CNT Collected: 06/22/2018 Status: F Source: [place] NO DIFF 11:21 AM [facility] REPOSITORY TYPE CODE TESTS RESULT OUT OF RANGE REFERENCE UNITS LAB L100.1000 4.4-11.0 K/mm3 Normal WBC 7.2 LAB L100.1200 4.2-5.4 M/mm3 Low RBC 3.25 LAB L100.1300 12.0-15.0 g/dl Low HGB 10.2 LAB L100.1400 37-47 % Low HCT 33.2 LAB L100.1500 81-99 fL High MCV 102.2 LAB L100.1600 27.0-32.0 pg Normal MCH 31.4 LAB L100.1700 32-36 g/gl Low MCHC 30.7 LAB L100.1810 11.6-14.6 % Normal RDW CV 14.3 LAB L100.1820 35.1-43.9 fl High RDW SD 53.4 LAB L100.1900 150-450 K/mm3 Normal PLT 237 LAB L100.2000 6.2-12.0 fl Normal MPV 9.6 Performed By: #### L100.0500 #### [facility] [place], [address] RENAL PROFILE Collected: 06/22/2018 Status: F Source: [place] 11:21 AM [facility] REPOSITORY TYPE CODE TESTS RESULT OUT OF RANGE REFERENCE UNITS LAB L501.0100 74-106 mg/dL High GLU 137 Result Comment: Fasting Glucose result greater than or equal to 126 mg/dL suggests DIABETES MELLITUS per A.D.A. criteria. Please note revised GLUCOSE reference range effective 2017. LAB L501.1000 7-18 mg/dL High BUN 76 LAB L501.1100 0.55-1.02 mg/dL High CREAT,SERUM 2.47 Result Comment: The validity of the calculated GFR AND GFRAA in patients over 70 years has not been determined. Clinical correlation is essential. LAB L501.1110 >60 mL/min Low EST GFR 20 Result Comment: Non- GFR Calc LAB L501.1115 >60 mL/min Low EST GFR - AA 24 Result Comment: GFR Calc LAB L501.1255 ml/min Normal Estimated CRCL 17.57 LAB L501.1300 10-20 RATIO High BUN/CRE 30.8 LAB L501.1800 3.2-5. g/dL Low 0 ALB 3.1 LAB L501.2200 8.5-10 mg/dL Normal .1 CA 9.1 LAB L501.2300 2.5-4. mg/dL Normal 9 PHOS 3.0 LAB L501.5300 136-14 mmol/L Normal 5 NA 145 LAB L501.5600 3.5-5. mmol/L Normal 1 K 3.9 LAB L501.5900 98-107 mmol/L High CL 108 LAB L501.6100 21.0-3 mmol/L Normal 2.0 CO2 26.0 Performed By: #### L500.3600 #### [facility] [address] [place], [address] HH, HEMOGLOBIN AND Collected: 06/08/2018 Status: F Source: [place] HEMATOCRIT 11:45 AM [facility] REPOSITORY TYPE CODE TESTS RESULT OUT OF RANGE REFERENCE UNITS LAB L100.1300 12.0-15.0 g/dl Low HGB 9.8 LAB L100.1400 37-47 % Low HCT 31.3 Performed By: #### L100.0600 #### [facility] [address] [place], [address] HEMOGLOBIN A1C Collected: 06/08/2018 Status: F Source: [place] 11:45 AM [facility] REPOSITORY Order Comment: Comments: DR. PEPE FAX [phone] TYPE CODE TESTS RESULT OUT OF RANGE REFERENCE UNITS LAB L501.9985 4.2-6.3 % High HGB A1C 6.4 Performed By: #### L501.9985 #### [facility] [address] [place], [address] BASIC METABOLIC Collected: 06/08/2018 Status: F Source: [place] PROFILE (BMP) 11:45 AM [facility] REPOSITORY Order Comment: Comments: DR. PEPE FAX [phone] Comments: DR. PEPE FAX [phone] TYPE CODE TESTS RESULT OUT OF RANGE REFERENCE UNITS LAB L501.0100 74-106 mg/dL Normal GLU 96 Result Comment: Please note revised GLUCOSE reference range effective 2017. LAB L501.1000 7-18 mg/dL High BUN 89 LAB L501.1100 0.55-1.02 mg/dL High CREAT,SERUM 2.83 Result Comment: The validity of the calculated GFR AND GFRAA in patients over 70 years has not been determined. Clinical correlation is essential. LAB L501.1110 >60 mL/min Low EST GFR 17 Result Comment: Non- GFR Calc LAB L501.1115 >60 mL/min Low EST GFR - AA 21 Result Comment: GFR Calc LAB L501.1255 ml/min Normal Estimated CRCL 15.34 LAB L501.1300 10-20 RATIO High BUN/CRE 31.4 LAB L501.2200 8.5-10 mg/dL Low .1 CA 8.1 LAB L501.5300 136-14 mmol/L Normal 5 NA 139 LAB L501.5600 3.5-5. mmol/L Normal 1 K 3.7 LAB L501.5900 98-107 mmol/L High CL 108 LAB L501.6100 21.0-3 mmol/L Normal 2.0 CO2 21.0 LAB L501.6200 5-15 Normal GAP 10 Performed By: #### L500.2500, L501.9520, L506.0400 #### [facility] [address] [facility] [place], [address] THYROID STIM HORMONE Collected: 06/08/2018 Status: F Source: [place] (TSH) 11:45 AM [facility] REPOSITORY Order Comment: Comments: DR. PEPE FAX [phone] Comments: DR. PEPE FAX [phone] TYPE CODE TESTS RESULT OUT OF RANGE REFERENCE UNITS LAB L501.9520 0.358-3.74 uIU/mL Normal TSH 0.93 Performed By: #### L500.2500, L501.9520, L506.0400 #### [facility] [address] [facility]. [place], [place], [address] T4 FREE DIRECT Collected: 06/08/2018 Status: F Source: [place] 11:45 AM [facility] REPOSITORY Order Comment: Comments: DR. PEPE FAX [phone] Comments: DR. PEPE FAX [phone] TYPE CODE TESTS RESULT OUT OF RANGE REFERENCE UNITS LAB L506.0400 0.76-1.46 ng/dL Normal T4 FREE 1.04 DIRECT Performed By: #### L500.2500, L501.9520, L506.0400 #### [facility] [address] [place], [address] CBC-COMPLETE BLOOD CNT Collected: 05/25/2018 Status: F Source: [place] NO DIFF 11:20 AM [facility] REPOSITORY TYPE CODE TESTS RESULT OUT OF RANGE REFERENCE UNITS LAB L100.1000 4.4-11.0 K/mm3 Normal WBC 7.9 LAB L100.1200 4.2-5.4 M/mm3 Low RBC 3.37 LAB L100.1300 12.0-15.0 g/dl Low HGB 10.8 LAB L100.1400 37-47 % Low HCT 33.8 LAB L100.1500 81-99 fL High MCV 100.3 LAB L100.1600 27.0-32.0 pg Normal MCH 32.0 LAB L100.1700 32-36 g/gl Normal MCHC 32.0 LAB L100.1810 11.6-14.6 % Normal RDW CV 14.1 LAB L100.1820 35.1-43.9 fl High RDW SD 51.5 LAB L100.1900 150-450 K/mm3 Normal PLT 245 LAB L100.2000 6.2-12.0 fl Normal MPV 10.1 Performed By: #### L100.0500 #### [facility] [address] [place], [address] RENAL PROFILE Collected: 05/25/2018 Status: F Source: [place] 11:20 AM [facility] REPOSITORY Order Comment: PLEASE ADD FE GIGI TIBC TO BLOOD FROM EARLIER TODAY TYPE CODE TESTS RESULT OUT OF RANGE REFERENCE UNITS LAB L501.0100 74-106 mg/dL Normal GLU 77 Result Comment: Please note revised GLUCOSE reference range effective 2017. LAB L501.1000 7-18 mg/dL High BUN 96 LAB L501.1100 0.55-1.02 mg/dL High CREAT,SERUM 2.93 Result Comment: The validity of the calculated GFR AND GFRAA in patients over 70 years has not been determined. Clinical correlation is essential. LAB L501.1110 >60 mL/min Low EST GFR 17 Result Comment: Non- GFR Calc LAB L501.1115 >60 mL/min Low EST GFR - AA 20 Result Comment: GFR Calc LAB L501.1255 ml/min Normal Estimated CRCL 14.81 LAB L501.1300 10-20 RATIO High BUN/CRE 32.8 LAB L501.1800 3.2-5. g/dL Normal 0 ALB 3.5 LAB L501.2200 8.5-10 mg/dL High .1 CA 10.7 LAB L501.2300 2.5-4. mg/dL Normal 9 PHOS 3.9 LAB L501.5300 136-14 mmol/L Normal 5 NA 143 LAB L501.5600 3.5-5. mmol/L Normal 1 K 3.6 LAB L501.5900 98-107 mmol/L High CL 108 LAB L501.6100 21.0-3 mmol/L Normal 2.0 CO2 21.0 Performed By: #### L500.3600, L503.6075, L503.6150, L503.6550 #### [facility] [address] [place], [address] IRON BINDING Collected: 05/25/2018 Status: F Source: [facility] 11:20 AM [facility] REPOSITORY Order Comment: PLEASE ADD FE GIGI TIBC TO BLOOD FROM [facility] TODAY TYPE CODE TESTS RESULT OUT OF RANGE REFERENCE UNITS LAB L503.6075 250-450 ug/dL Normal TIBC 267 Performed By: #### L500.3600, L503.6075, L503.6150, L503.6550 #### [facility] [address] [place], [place], [address] IRON Collected: 05/25/2018 Status: F Source: [place]ERRAL 11:20 AM [facility] REPOSITORY Order Comment: PLEASE ADD FE GIGI TIBC TO BLOOD FROM EARLIER TODAY TYPE CODE TESTS RESULT OUT OF RANGE REFERENCE UNITS LAB L503.6150 50-170 ug/dL Normal IRON 88 Performed By: #### L500.3600, L503.6075, L503.6150, L503.6550 #### [facility] [address] [place], [address] FERRITIN Collected: 05/25/2018 Status: F Source: TERRAL 11:20 AM [facility] REPOSITORY Order Comment: PLEASE ADD FE GIGI TIBC TO BLOOD FROM EARLIER TODAY TYPE CODE TESTS RESULT OUT OF RANGE REFERENCE UNITS LAB L503.6550 8-252 ng/mL Normal FERRITIN 118 Performed By: #### L500.3600, L503.6075, L503.6150, L503.6550 #### [facility] [address] [place], [address] VITAMIN D,25 HYDROXY Collected: 05/25/2018 Status: F Source: [place] 11:20 AM [facility] REPOSITORY TYPE CODE TESTS RESULT OUT OF REFERENCE UNITS RANGE LAB L506.1000 29.95-100.01 ng/mL Low Vitamin D 13.8 25-OH Result Comment: Vitamin D 25(OH) Status Range Deficiency <20 ng/mL (50nmol/L) Insuffciency 20 - 30 ng/mL (50 - 75 nmol/L) Sufficiency 30 - 100 ng/mL (75 - 250 nmol/L) Toxicity >100 ng/mL (>250 nmol/L) Performed By: #### L506.1000 #### [facility] [address] [place], [address] PTHIN Collected: 05/25/2018 Status: F Source: [place] 11:20 AM [facility] REPOSITORY TYPE CODE TESTS RESULT OUT OF RANGE REFERENCE UNITS LAB L509.1000 18.4-80.1 pg/mL Normal PTHIN 25.6 Performed By: #### L509.1000 #### [facility] [address] [place], [address] URINALYSIS, ROUTINE Collected: 05/25/2018 Status: F Source: [place] (DIPSTICK) 11:20 AM [facility] REPOSITORY Order Comment: How was Urine Obtained? CLEAN CATCH TYPE CODE TESTS RESULT OUT OF RANGE REFERENCE UNITS LAB L400.3000 Yellow COLOR Normal Yellow LAB L400.3050 Clear Normal CLARITY Clear LAB L400.3200 Normal mg/dl Normal GLUCOSE, UR Normal LAB L400.3300 Negative mg/dL Normal BILIRUBIN URINE Negative LAB L400.3400 Negative mg/dl Normal KETONE UR Negative LAB L400.3465 1.002-1.030 Normal SP.GR. DIPSTX 1.015 LAB L400.3550 5.0 - 8.0 pH UR Normal 5.0 LAB L400.3600 Negative mg/dl PROT Normal DIPSTX Negative LAB L400.3700 Normal mg/dl Normal UROBILI Normal LAB L400.3750 Negative Normal NITRITE UR Negative LAB L400.3780 Negative /ul Normal OCCULT BLOOD-UR Negative LAB L400.3800 Negative /ul High LEUK 25 ESTERASE Performed By: #### L400.2010 #### [facility] [address] [place], [address] PROTEIN+CREATININE Collected: Status: F Source: [place] RATIO,URINE 05/25/2018 11:20 AM [facility] REPOSITORY TYPE CODE TESTS RESULT OUT OF RANGE REFERENCE UNITS LAB L501.1200 NO RANGE EST. mg/dL Normal UR CREAT 58.70 LAB L501.1930 <11.9 mg/dL Normal < 6.0 PROTEIN,UR.R AN. LAB L501.1940 0-200 mg/g CRE Normal PROT:CRE 99 RATIO Performed By: #### L501.0900, L502.0500 #### [facility] [address] [place], [address] MICROALBUMIN,RANDOM URINE Collected: Status: F Source: [place] 05/25/2018 11:20 AM [facility] REPOSITORY TYPE CODE TESTS RESULT OUT OF RANGE REFERENCE UNITS LAB L502.0500 NO RANGE EST. mg/L Normal 6.5 MICROALBUMIN ,UR Performed By: #### L501.0900, L502.0500 #### [facility] [address] [facility] [place], [address] HH, HEMOGLOBIN AND Collected: 05/11/2018 Status: F Source: [place] HEMATOCRIT 8:25 AM [facility] REPOSITORY TYPE CODE TESTS RESULT OUT OF RANGE REFERENCE UNITS LAB L100.1300 12.0-15.0 g/dl Low HGB 10.4 LAB L100.1400 37-47 % Low HCT 32.1 Performed By: #### L100.0600 #### [facility] [address] [place], [address] RENAL PROFILE Collected: 05/11/2018 Status: F Source: [place] 8:25 AM [facility] REPOSITORY TYPE CODE TESTS RESULT OUT OF RANGE REFERENCE UNITS LAB L501.0100 74-106 mg/dL High GLU 156 Result Comment: Fasting Glucose result greater than or equal to 126 mg/dL suggests DIABETES MELLITUS per A.D.A. criteria. Please note revised GLUCOSE reference range effective 2017. LAB L501.1000 7-18 mg/dL High BUN 80 LAB L501.1100 0.55-1.02 mg/dL High CREAT,SERUM 3.10 Result Comment: The validity of the calculated GFR AND GFRAA in patients over 70 years has not been determined. Clinical correlation is essential. LAB L501.1110 >60 mL/min Low EST GFR 15 Result Comment: Non- GFR Calc LAB L501.1115 >60 mL/min Low EST GFR - AA 19 Result Comment: GFR Calc LAB L501.1255 ml/min Normal Estimated CRCL 14.00 LAB L501.1300 10-20 RATIO High BUN/CRE 25.8 LAB L501.1800 3.2-5. g/dL Low 0 ALB 3.1 LAB L501.2200 8.5-10 mg/dL High .1 CA 10.2 LAB L501.2300 2.5-4. mg/dL Normal 9 PHOS 3.8 LAB L501.5300 136-14 mmol/L Normal 5 NA 143 LAB L501.5600 3.5-5. mmol/L Normal 1 K 3.9 LAB L501.5900 98-107 mmol/L Normal CL 107 LAB L501.6100 21.0-3 mmol/L Normal 2.0 CO2 23.0 Performed By: #### L500.3600 #### [facility] [address] [place], [address] CBC W/DIFF, AUTOMATED Collected: 04/27/2018 Status: F Source: [place] 11:28 AM [facility] REPOSITORY TYPE CODE TESTS RESULT OUT OF RANGE REFERENCE UNITS LAB L100.1000 4.4-11.0 K/mm3 Normal WBC 6.6 LAB L100.1200 4.2-5.4 M/mm3 Low RBC 3.32 LAB L100.1300 12.0-15.0 g/dl Low HGB 10.8 LAB L100.1400 37-47 % Low HCT 34.1 LAB L100.1500 81-99 fL High MCV 102.7 LAB L100.1600 27.0-32.0 pg High MCH 32.5 LAB L100.1700 32-36 g/gl Low MCHC 31.7 LAB L100.1810 11.6-14.6 % Normal RDW CV 13.5 LAB L100.1820 35.1-43.9 fl High RDW SD 49.5 LAB L100.1900 150-450 K/mm3 Normal PLT 234 LAB L100.2000 6.2-12.0 fl Normal MPV 10.5 LAB L100.2100 47-70 % Normal NEUT% 59.6 LAB L100.2200 19-41 % Normal LY% 25.3 LAB L100.2300 0-10 % Normal MONO% 8.7 LAB L100.2400 0-5 % High EO% 5.3 LAB L100.2500 0-1 % Normal BASO% 0.8 LAB L100.2550 0.0-0.9 % Normal IM GRAN % 0.300 Result Comment: IG% - Immature Granulocytes (promyelocytes, myelocytes and metamyelocytes) > 1% indicates that a LEFT SHIFT is Present. LAB L100.2620 2.0-7.7 X10 3/uL Normal Absolute Neut 3.9 LAB L100.2720 0.83-4.51 X10 3/ul Normal Absolute Lymph 1.66 Performed By: #### L100.0100 #### [facility] [address] [facility] [place], [address] HH, HEMOGLOBIN AND Collected: 04/13/2018 Status: F Source: [place] HEMATOCRIT 11:23 AM [facility] REPOSITORY TYPE CODE TESTS RESULT OUT OF RANGE REFERENCE UNITS LAB L100.1300 12.0-15.0 g/dl Low HGB 10.6 LAB L100.1400 37-47 % Low HCT 33.6 Performed By: #### L100.0600 #### [facility] [address] [place], [place], [address] RENAL PROFILE Collected: 04/13/2018 Status: F Source: [place] 11:23 AM [facility] REPOSITORY TYPE CODE TESTS RESULT OUT OF RANGE REFERENCE UNITS LAB L501.0100 74-106 mg/dL Normal GLU 78 Result Comment: Please note revised GLUCOSE reference range effective 2017. LAB L501.1000 7-18 mg/dL High BUN 83 LAB L501.1100 0.55-1.02 mg/dL High CREAT,SERUM 2.89 Result Comment: The validity of the calculated GFR AND GFRAA in patients over 70 years has not been determined. Clinical correlation is essential. LAB L501.1110 >60 mL/min Low EST GFR 17 Result Comment: Non- GFR Calc LAB L501.1115 >60 mL/min Low EST GFR - AA 20 Result Comment: GFR Calc LAB L501.1255 ml/min Normal Estimated CRCL 15.02 LAB L501.1300 10-20 RATIO High BUN/CRE 28.7 LAB L501.1800 3.2-5. g/dL Normal 0 ALB 3.4 LAB L501.2200 8.5-10 mg/dL High .1 CA 11.1 LAB L501.2300 2.5-4. mg/dL Normal 9 PHOS 3.7 LAB L501.5300 136-14 mmol/L Normal 5 NA 145 LAB L501.5600 3.5-5. mmol/L Normal 1 K 3.9 LAB L501.5900 98-107 mmol/L High CL 108 LAB L501.6100 21.0-3 mmol/L Normal 2.0 CO2 25.0 Performed By: #### L500.3600 #### [facility] [address] [place], [place], [address] COMPREHENSIVE METABOLIC Collected: 03/30/2018 Status: F Source: [facility] 11:45 AM [facility] REPOSITORY TYPE CODE TESTS RESULT OUT OF RANGE REFERENCE UNITS LAB L501.0100 74-106 mg/dL High GLU 209 Result Comment: Glucose result greater than or equal to 200 mg/dL suggests DIABETES MELLITUS per A.D.A. criteria. Please note revised GLUCOSE reference range effective 2017. LAB L501.1000 7-18 mg/dL High BUN 86 LAB L501.1100 0.55-1.02 mg/dL High CREAT,SERUM 3.21 Result Comment: The validity of the calculated GFR AND GFRAA in patients over 70 years has not been determined. Clinical correlation is essential. LAB L501.1110 >60 mL/min Low EST GFR 15 Result Comment: Non- GFR Calc LAB L501.1115 >60 mL/min Low EST GFR - AA 18 Result Comment: GFR Calc LAB L501.1300 10-20 RATIO High BUN/CRE 26.8 LAB L501.1500 6.4-8.2 g/dL T Normal PROT 6.9 LAB L501.1800 3.2-5.0 g/dL Normal ALB 3.3 LAB L501.1950 2.2-4.2 g/dL Normal GLOB 3.6 LAB L501.2000 0.9-2.4 RATIO Normal A/G 0.9 LAB L501.2200 8.5-10.1 mg/dL CA Normal 9.7 LAB L501.4100 15-37 U/L Low AST 14 LAB L501.4305 45-117 U/L Normal ALK P 72 LAB L501.4405 13-56 U/L Normal ALT 24 LAB L501.4600 0.20-1.00 mg/dL T Normal BILI 0.50 LAB L501.5300 136-145 mmol/L NA Normal 141 LAB L501.5600 3.5-5.1 mmol/L K Normal 3.8 LAB L501.5900 98-107 mmol/L CL Normal 107 LAB L501.6100 21.0-32.0 mmol/L Normal CO2 25.0 LAB L501.6200 5-15 Normal GAP 9 Performed By: #### L500.4050 #### [facility] [address], [place], [address] HEMOGLOBIN A1C Collected: 03/30/2018 Status: F Source: [place] 11:45 AM [facility] REPOSITORY TYPE CODE TESTS RESULT OUT OF RANGE REFERENCE UNITS LAB L501.9985 4.2-6.3 % Normal HGB A1C 5.9 Performed By: #### L501.9985 #### [facility] [address] [place], [address] CBC W/DIFF, AUTOMATED Collected: 03/30/2018 Status: F Source: [place] 11:37 AM [facility] REPOSITORY TYPE CODE TESTS RESULT OUT OF RANGE REFERENCE UNITS LAB L100.1000 4.4-11.0 K/mm3 Normal WBC 10.1 LAB L100.1200 4.2-5.4 M/mm3 Low RBC 3.37 LAB L100.1300 12.0-15.0 g/dl Low HGB 10.5 LAB L100.1400 37-47 % Low HCT 34.0 LAB L100.1500 81-99 fL High MCV 100.9 LAB L100.1600 27.0-32.0 pg Normal MCH 31.2 LAB L100.1700 32-36 g/gl Low MCHC 30.9 LAB L100.1810 11.6-14.6 % Normal RDW CV 13.9 LAB L100.1820 35.1-43.9 fl High RDW SD 51.1 LAB L100.1900 150-450 K/mm3 Normal PLT 243 LAB L100.2000 6.2-12.0 fl Normal MPV 10.5 LAB L100.2100 47-70 % High NEUT% 89.5 LAB L100.2200 19-41 % Low LY% 3.6 LAB L100.2300 0-10 % Normal MONO% 5.8 LAB L100.2400 0-5 % Normal EO% 0.8 LAB L100.2500 0-1 % Normal BASO% 0.1 LAB L100.2550 0.0-0.9 % Normal IM GRAN % 0.200 Result Comment: IG% - Immature Granulocytes (promyelocytes, myelocytes and metamyelocytes) > 1% indicates that a LEFT SHIFT is Present. LAB L100.2620 2.0-7.7 X10 3/uL High Absolute Neut 9.1 LAB L100.2720 0.83-4.51 X10 3/ul Low Absolute Lymph 0.36 LAB L100.4500 SMEAR Normal COMMENT Result Comment: LYMPHOPENIA NOTED Performed By: #### L100.0100 #### [facility] [address] [facility] [place], [place], [address] HH, HEMOGLOBIN AND Collected: 03/16/2018 Status: F Source: [place] HEMATOCRIT 11:28 AM [facility] REPOSITORY TYPE CODE TESTS RESULT OUT OF RANGE REFERENCE UNITS LAB L100.1300 12.0-15.0 g/dl Low HGB 10.0 LAB L100.1400 37-47 % Low HCT 31.6 Performed By: #### L100.0600 #### [facility] [address] [place], [place], [address] RENAL PROFILE Collected: 03/16/2018 Status: F Source: [place] 11:28 AM [facility] REPOSITORY TYPE CODE TESTS RESULT OUT OF RANGE REFERENCE UNITS LAB L501.0100 74-106 mg/dL High GLU 122 Result Comment: Fasting Glucose result from 100 to 125 mg/dL suggests IMPAIRED HOMEOSTASIS per A.D.A. criteria. Please note revised GLUCOSE reference range effective 2017. LAB L501.1000 7-18 mg/dL High BUN 84 LAB L501.1100 0.55-1.02 mg/dL High CREAT,SERUM 2.95 Result Comment: The validity of the calculated GFR AND GFRAA in patients over 70 years has not been determined. Clinical correlation is essential. LAB L501.1110 >60 mL/min Low EST GFR 16 Result Comment: Non- GFR Calc LAB L501.1115 >60 mL/min Low EST GFR - AA 20 Result Comment: GFR Calc LAB L501.1300 10-20 RATIO High BUN/CRE 28.5 LAB L501.1800 3.2-5.0 g/dL Normal ALB 3.3 LAB L501.2200 8.5-10.1 mg/dL CA Normal 9.2 LAB L501.2300 2.5-4.9 mg/dL Normal PHOS 3.7 LAB L501.5300 136-145 mmol/L NA Normal 142 LAB L501.5600 3.5-5.1 mmol/L K Normal 3.8 LAB L501.5900 98-107 mmol/L High CL 108 LAB L501.6100 21.0-32.0 mmol/L Normal CO2 23.0 Performed By: #### L500.3600 #### [facility] [place], [address] CBC-COMPLETE BLOOD CNT Collected: 03/02/2018 Status: F Source: [place] NO DIFF 11:26 AM [facility] REPOSITORY TYPE CODE TESTS RESULT OUT OF RANGE REFERENCE UNITS LAB L100.1000 4.4-11.0 K/mm3 Normal WBC 8.0 LAB L100.1200 4.2-5.4 M/mm3 Low RBC 3.22 LAB L100.1300 12.0-15.0 g/dl Low HGB 10.2 LAB L100.1400 37-47 % Low HCT 32.6 LAB L100.1500 81-99 fL High MCV 101.2 LAB L100.1600 27.0-32.0 pg Normal MCH 31.7 LAB L100.1700 32-36 g/gl Low MCHC 31.3 LAB L100.1810 11.6-14.6 % Normal RDW CV 14.1 LAB L100.1820 35.1-43.9 fl High RDW SD 52.3 LAB L100.1900 150-450 K/mm3 Normal PLT 240 LAB L100.2000 6.2-12.0 fl Normal MPV 9.7 Performed By: #### L100.0500 #### [facility] [address] [place], [address] PROTEIN+CREATININE Collected: Status: F Source: [facility],URINE 02/16/2018 7:58 AM [facility] REPOSITORY TYPE CODE TESTS RESULT OUT OF RANGE REFERENCE UNITS LAB L501.1200 NO RANGE EST. mg/dL Normal UR CREAT 78.40 LAB L501.1930 <11.9 mg/dL High 13.0 PROTEIN,UR.R AN. LAB L501.1940 0-200 mg/g CRE Normal PROT:CRE 166 RATIO Performed By: #### L501.0900 #### [facility] [address] [place], [address] CBC W/DIFF, AUTOMATED Collected: 02/16/2018 Status: F Source: [place] 7:45 AM [facility] REPOSITORY TYPE CODE TESTS RESULT OUT OF RANGE REFERENCE UNITS LAB L100.1000 4.4-11.0 K/mm3 Normal WBC 6.6 LAB L100.1200 4.2-5.4 M/mm3 Low RBC 3.12 LAB L100.1300 12.0-15.0 g/dl Low HGB 9.8 LAB L100.1400 37-47 % Low HCT 31.1 LAB L100.1500 81-99 fL High MCV 99.7 LAB L100.1600 27.0-32.0 pg Normal MCH 31.4 LAB L100.1700 32-36 g/gl Low MCHC 31.5 LAB L100.1810 11.6-14.6 % Normal RDW CV 13.7 LAB L100.1820 35.1-43.9 fl High RDW SD 50.3 LAB L100.1900 150-450 K/mm3 Normal PLT 237 LAB L100.2000 6.2-12.0 fl Normal MPV 10.0 LAB L100.2100 47-70 % Normal NEUT% 64.9 LAB L100.2200 19-41 % Normal LY% 21.6 LAB L100.2300 0-10 % Normal MONO% 7.6 LAB L100.2400 0-5 % High EO% 5.3 LAB L100.2500 0-1 % Normal BASO% 0.6 LAB L100.2550 0.0-0.9 % Normal IM GRAN % 0.000 Result Comment: IG% - Immature Granulocytes (promyelocytes, myelocytes and metamyelocytes) > 1% indicates that a LEFT SHIFT is Present. LAB L100.2620 2.0-7.7 X10 3/uL Normal Absolute Neut 4.3 LAB L100.2720 0.83-4.51 X10 3/ul Normal Absolute Lymph 1.42 Performed By: #### L100.0100, L500.3600, L501.5200, L503.6030, L506.0250 #### [facility] [address] [place], [place], [id number] RENAL PROFILE Collected: 02/16/2018 Status: F Source: [place] 7:45 AM [facility] REPOSITORY TYPE CODE TESTS RESULT OUT OF RANGE REFERENCE UNITS LAB L501.0100 74-106 mg/dL Normal GLU 77 Result Comment: Please note revised GLUCOSE reference range effective 2017. LAB L501.1000 7-18 mg/dL High BUN 78 LAB L501.1100 0.55-1.02 mg/dL High CREAT,SERUM 2.76 Result Comment: The validity of the calculated GFR AND GFRAA in patients over 70 years has not been determined. Clinical correlation is essential. LAB L501.1110 >60 mL/min Low EST GFR 18 Result Comment: Non- GFR Calc LAB L501.1115 >60 mL/min Low EST GFR - AA 21 Result Comment: GFR Calc LAB L501.1255 ml/min Normal Estimated CRCL 15.73 LAB L501.1300 10-20 RATIO High BUN/CRE 28.3 LAB L501.1800 3.2-5. g/dL Normal 0 ALB 3.2 LAB L501.2200 8.5-10 mg/dL Normal .1 CA 9.0 LAB L501.2300 2.5-4. mg/dL Normal 9 PHOS 3.1 LAB L501.5300 136-14 mmol/L Normal 5 NA 142 LAB L501.5600 3.5-5. mmol/L Normal 1 K 3.7 LAB L501.5900 98-107 mmol/L High CL 109 LAB L501.6100 21.0-3 mmol/L Normal 2.0 CO2 25.0 Performed By: #### L100.0100, L500.3600, L501.5200, L503.6030, L506.0250 #### [facility] [address] [facility] [place], [place], [id number] MAGNESIUM Collected: 02/16/2018 Status: F Source: [place] 7:45 AM [facility] REPOSITORY TYPE CODE TESTS RESULT OUT OF RANGE REFERENCE UNITS LAB L501.5200 1.6-2.6 mg/dL Normal MG 1.7 Performed By: #### L100.0100, L500.3600, L501.5200, L503.6030, L506.0250 #### [facility] [address] [facility] [place], [place], [id number] IRON+IRON BINDING Collected: 02/16/2018 Status: F Source: [facility] 7:45 AM [facility] REPOSITORY TYPE CODE TESTS RESULT OUT OF RANGE REFERENCE UNITS LAB L503.6075 250-450 ug/dL Low TIBC 231 LAB L503.6150 50-170 ug/dL IRON Normal 66 LAB L503.6250 15.0-55.0 % IRON Normal SATURATION 28.6 Performed By: #### L100.0100, L500.3600, L501.5200, L503.6030, L506.0250 #### [facility] [address] [facility] [place], [place], [id number] FOLATES, (FOLIC ACID) Collected: 02/16/2018 Status: F Source: [place] 7:45 AM [facility] REPOSITORY TYPE CODE TESTS RESULT OUT OF RANGE REFERENCE UNITS LAB L506.0250 3.1-55.4 ng/mL Normal FOLATES 11.10 Performed By: #### L100.0100, L500.3600, L501.5200, L503.6030, L506.0250 #### [facility] [address] [place], [address] VITAMIN B12 Collected: 02/16/2018 Status: F Source: [place] 7:45 AM [facility] REPOSITORY TYPE CODE TESTS RESULT OUT OF RANGE REFERENCE UNITS LAB L503.0105 211-911 pg/mL Normal Vitamin B12 224 Performed By: #### L503.0105, L506.1000 #### [facility] [address] [place], [address] VITAMIN D,25 HYDROXY Collected: 02/16/2018 Status: F Source: [place] 7:45 AM [facility] REPOSITORY TYPE CODE TESTS RESULT OUT OF REFERENCE UNITS RANGE LAB L506.1000 29.95-100.01 ng/mL Low Vitamin D 14.9 25-OH Result Comment: Vitamin D 25(OH) Status Range Deficiency <20 ng/mL (50nmol/L) Insuffciency 20 - 30 ng/mL (50 - 75 nmol/L) Sufficiency 30 - 100 ng/mL (75 - 250 nmol/L) Toxicity >100 ng/mL (>250 nmol/L) Performed By: #### L503.0105, L506.1000 #### [facility] [address] [place], [address] PTHIN Collected: 02/16/2018 Status: F Source: [place] 7:45 AM [facility] REPOSITORY TYPE CODE TESTS RESULT OUT OF RANGE REFERENCE UNITS LAB L509.1000 18.4-80.1 pg/mL Normal PTHIN 69.0 Performed By: #### L509.1000 #### [facility] [address] [place], [address] CBC-COMPLETE BLOOD CNT Collected: 02/02/2018 Status: F Source: [place] NO DIFF 7:20 AM [facility] REPOSITORY TYPE CODE TESTS RESULT OUT OF RANGE REFERENCE UNITS LAB L100.1000 4.4-11.0 K/mm3 Normal WBC 7.2 LAB L100.1200 4.2-5.4 M/mm3 Low RBC 3.17 LAB L100.1300 12.0-15.0 g/dl Low HGB 9.9 LAB L100.1400 37-47 % Low HCT 31.9 LAB L100.1500 81-99 fL High MCV 100.6 LAB L100.1600 27.0-32.0 pg Normal MCH 31.2 LAB L100.1700 32-36 g/gl Low MCHC 31.0 LAB L100.1810 11.6-14.6 % Normal RDW CV 13.6 LAB L100.1820 35.1-43.9 fl High RDW SD 49.7 LAB L100.1900 150-450 K/mm3 Normal PLT 239 LAB L100.2000 6.2-12.0 fl Normal MPV 10.3 Performed By: #### L100.0500 #### [facility] [address] [place], [address] RENAL PROFILE Collected: 01/19/2018 Status: F Source: [place] 7:24 AM [facility] REPOSITORY Order Comment: Has pt arrived? Y TYPE CODE TESTS RESULT OUT OF RANGE REFERENCE UNITS LAB L501.0100 74-106 mg/dL High GLU 224 Result Comment: Glucose result greater than or equal to 200 mg/dL suggests DIABETES MELLITUS per A.D.A. criteria. Please note revised GLUCOSE reference range effective 2017. LAB L501.1000 7-18 mg/dL High BUN 82 LAB L501.1100 0.55-1.02 mg/dL High CREAT,SERUM 2.88 Result Comment: The validity of the calculated GFR AND GFRAA in patients over 70 years has not been determined. Clinical correlation is essential. LAB L501.1110 >60 mL/min Low EST GFR 17 Result Comment: Non- GFR Calc LAB L501.1115 >60 mL/min Low EST GFR - AA 20 Result Comment: GFR Calc LAB L501.1255 ml/min Normal Estimated CRCL 15.07 LAB L501.1300 10-20 RATIO High BUN/CRE 28.5 LAB L501.1800 3.2-5. g/dL Low 0 ALB 3.1 LAB L501.2200 8.5-10 mg/dL Normal .1 CA 9.7 LAB L501.2300 2.5-4. mg/dL Normal 9 PHOS 3.5 LAB L501.5300 136-14 mmol/L Normal 5 NA 142 LAB L501.5600 3.5-5. mmol/L Normal 1 K 3.9 LAB L501.5900 98-107 mmol/L High CL 110 LAB L501.6100 21.0-3 mmol/L Normal 2.0 CO2 22.0 Performed By: #### L500.3600 #### [facility] [address] [place], [address] HH, HEMOGLOBIN AND Collected: 01/19/2018 Status: F Source: [place] [facility] 7:24 AM [facility] REPOSITORY Order Comment: Has pt arrived? Y TYPE CODE TESTS RESULT OUT OF RANGE REFERENCE UNITS LAB L100.1300 12.0-15.0 g/dl Low HGB 9.9 LAB L100.1400 37-47 % Low HCT 31.8 Performed By: #### L100.0600 #### [facility] [address] [place], [place], [address] HH, HEMOGLOBIN AND Collected: 01/05/2018 Status: F Source: [place] [facility] 7:24 AM [facility] REPOSITORY TYPE CODE TESTS RESULT OUT OF RANGE REFERENCE UNITS LAB L100.1300 12.0-15.0 g/dl Low HGB 9.8 LAB L100.1400 37-47 % Low HCT 31.5 Performed By: #### L100.0600 #### [facility] [address] [place], [address] COMPREHENSIVE METABOLIC Collected: 12/30/2017 Status: F Source: [place] [facility]IL 8:21 AM [facility] REPOSITORY TYPE CODE TESTS RESULT OUT OF RANGE REFERENCE UNITS LAB L501.0100 74-106 mg/dL High GLU 150 Result Comment: Fasting Glucose result greater than or equal to 126 mg/dL suggests DIABETES MELLITUS per A.D.A. criteria. Please note revised GLUCOSE reference range effective 2017. LAB L501.1000 7-18 mg/dL High BUN 79 LAB L501.1100 0.55-1.02 mg/dL High CREAT,SERUM 2.82 Result Comment: The validity of the calculated GFR AND GFRAA in patients over 70 years has not been determined. Clinical correlation is essential. LAB L501.1110 >60 mL/min Low EST GFR 17 Result Comment: Non- GFR Calc LAB L501.1115 >60 mL/min Low EST GFR - AA 21 Result Comment: GFR Calc LAB L501.1300 10-20 RATIO High BUN/CRE 28.0 LAB L501.1500 6.4-8.2 g/dL Low T PROT 6.2 LAB L501.1800 3.2-5.0 g/dL Low ALB 3.0 LAB L501.1950 2.2-4.2 g/dL Normal GLOB 3.2 LAB L501.2000 0.9-2.4 RATIO Normal A/G 0.9 LAB L501.2200 8.5-10.1 mg/dL CA Normal 9.8 LAB L501.4100 15-37 U/L Low AST 12 LAB L501.4305 45-117 U/L Normal ALK P 76 LAB L501.4405 13-56 U/L Normal ALT 24 LAB L501.4600 0.20-1.00 mg/dL T Normal BILI 0.40 LAB L501.5300 136-145 mmol/L NA Normal 144 LAB L501.5600 3.5-5.1 mmol/L K Normal 3.8 LAB L501.5900 98-107 mmol/L High CL 110 LAB L501.6100 21.0-32.0 mmol/L Normal CO2 25.0 LAB L501.6200 5-15 Normal GAP 9 Performed By: #### L500.4050 #### [facility] [address] [place], [place], [id number] HEMOGLOBIN A1C Collected: 12/30/2017 Status: F Source: TERRAL 8:21 AM [facility] REPOSITORY TYPE CODE TESTS RESULT OUT OF RANGE REFERENCE UNITS LAB L501.9985 4.2-6.3 % Normal HGB A1C 6.0 Performed By: #### L501.9985 #### [facility] [address] [place], [place], [id number] CBC-COMPLETE BLOOD CNT Collected: 12/22/2017 Status: F Source: TAHIR[place] NO DIFF 7:30 AM [facility] [place] REPOSITORY TYPE CODE TESTS RESULT OUT OF RANGE REFERENCE UNITS LAB L100.1000 4.4-11.0 K/mm3 Normal WBC 7.5 LAB L100.1200 4.2-5.4 M/mm3 Low RBC 3.03 LAB L100.1300 12.0-15.0 g/dl Low HGB 9.9 LAB L100.1400 37-47 % Low HCT 31.2 LAB L100.1500 81-99 fL High MCV 103.0 LAB L100.1600 27.0-32.0 pg High MCH 32.7 LAB L100.1700 32-36 g/gl Low MCHC 31.7 LAB L100.1810 11.6-14.6 % Normal RDW CV 13.3 LAB L100.1820 35.1-43.9 fl High RDW SD 49.2 LAB L100.1900 150-450 K/mm3 Normal PLT 235 LAB L100.2000 6.2-12.0 fl Normal MPV 10.1 Performed By: #### L100.0500 #### [facility] [address] [place], [place], [address] RENAL PROFILE Collected: 12/22/2017 Status: F Source: [place] 7:30 AM [facility] REPOSITORY TYPE CODE TESTS RESULT OUT OF RANGE REFERENCE UNITS LAB L501.0100 74-106 mg/dL High GLU 138 Result Comment: Fasting Glucose result greater than or equal to 126 mg/dL suggests DIABETES MELLITUS per A.D.A. criteria. Please note revised GLUCOSE reference range effective 2017. LAB L501.1000 7-18 mg/dL High BUN 81 LAB L501.1100 0.55-1.02 mg/dL High CREAT,SERUM 2.90 Result Comment: The validity of the calculated GFR AND GFRAA in patients over 70 years has not been determined. Clinical correlation is essential. LAB L501.1110 >60 mL/min Low EST GFR 17 Result Comment: Non- GFR Calc LAB L501.1115 >60 mL/min Low EST GFR - AA 20 Result Comment: GFR Calc LAB L501.1255 ml/min Normal Estimated CRCL 15.21 LAB L501.1300 10-20 RATIO High BUN/CRE 27.9 LAB L501.1800 3.2-5. g/dL Low 0 ALB 3.0 LAB L501.2200 8.5-10 mg/dL Normal .1 CA 9.5 LAB L501.2300 2.5-4. mg/dL Normal 9 PHOS 3.6 LAB L501.5300 136-14 mmol/L Normal 5 NA 142 LAB L501.5600 3.5-5. mmol/L Normal 1 K 3.9 LAB L501.5900 98-107 mmol/L Normal CL 107 LAB L501.6100 21.0-3 mmol/L Normal 2.0 CO2 25.0 Performed By: #### L500.3600 #### [facility] [address] [place], [address] HH, HEMOGLOBIN AND Collected: 12/08/2017 Status: F Source: [facility] [facility] 7:24 AM [facility] REPOSITORY TYPE CODE TESTS RESULT OUT OF RANGE REFERENCE UNITS LAB L100.1300 12.0-15.0 g/dl Low HGB 10.0 LAB L100.1400 37-47 % Low HCT 32.1 Performed By: #### L100.0600 #### [facility] [address], [place], [address] CBC W/DIFF, AUTOMATED Collected: 11/24/2017 Status: F Source: [place] 7:34 AM [facility] REPOSITORY Order Comment: Comments: COPY ALL RESULTS TO DR. PEDERSEN FAX [phone] TYPE CODE TESTS RESULT OUT OF RANGE REFERENCE UNITS LAB L100.1000 4.4-11.0 K/mm3 Normal WBC 8.3 LAB L100.1200 4.2-5.4 M/mm3 Low RBC 3.04 LAB L100.1300 12.0-15.0 g/dl Low HGB 9.7 LAB L100.1400 37-47 % Low HCT 31.1 LAB L100.1500 81-99 fL High MCV 102.3 LAB L100.1600 27.0-32.0 pg Normal MCH 31.9 LAB L100.1700 32-36 g/gl Low MCHC 31.2 LAB L100.1810 11.6-14.6 % Normal RDW CV 14.6 LAB L100.1820 35.1-43.9 fl High RDW SD 54.6 LAB L100.1900 150-450 K/mm3 Normal PLT 268 LAB L100.2000 6.2-12.0 fl Normal MPV 9.6 LAB L100.2100 47-70 % Normal NEUT% 66.9 LAB L100.2200 19-41 % Normal LY% 21.2 LAB L100.2300 0-10 % Normal MONO% 6.6 LAB L100.2400 0-5 % Normal EO% 4.7 LAB L100.2500 0-1 % Normal BASO% 0.2 LAB L100.2550 0.0-0.9 % Normal IM GRAN % 0.400 Result Comment: IG% - Immature Granulocytes (promyelocytes, myelocytes and metamyelocytes) > 1% indicates that a LEFT SHIFT is Present. LAB L100.2620 2.0-7.7 X10 3/uL Normal Absolute Neut 5.6 LAB L100.2720 0.83-4.51 X10 3/ul Normal Absolute Lymph 1.76 Performed By: #### L100.0100, L500.3600, L503.6030, L503.6550 #### [facility] [address] [place], [place], [address] RENAL PROFILE Collected: 11/24/2017 Status: F Source: [place] 7:34 AM [facility] REPOSITORY Order Comment: Comments: COPY ALL RESULTS TO DR. PEDERSEN FAX [phone] Comments: COPY ALL RESULTS TO DR. PEDERSEN FAX [phone] TYPE CODE TESTS RESULT OUT OF RANGE REFERENCE UNITS LAB L501.0100 74-106 mg/dL High GLU 129 Result Comment: Fasting Glucose result greater than or equal to 126 mg/dL suggests DIABETES MELLITUS per A.D.A. criteria. Please note revised GLUCOSE reference range effective 2017. LAB L501.1000 7-18 mg/dL High BUN 66 LAB L501.1100 0.55-1.02 mg/dL High CREAT,SERUM 2.27 Result Comment: The validity of the calculated GFR AND GFRAA in patients over 70 years has not been determined. Clinical correlation is essential. LAB L501.1110 >60 mL/min Low EST GFR 22 Result Comment: Non- GFR Calc LAB L501.1115 >60 mL/min Low EST GFR - AA 27 Result Comment: GFR Calc LAB L501.1300 10-20 RATIO High BUN/CRE 29.1 LAB L501.1800 3.2-5.0 g/dL Low ALB 2.8 LAB L501.2200 8.5-10.1 mg/dL Low CA 8.3 LAB L501.2300 2.5-4.9 mg/dL Low PHOS 2.1 LAB L501.5300 136-145 mmol/L NA Normal 143 LAB L501.5600 3.5-5.1 mmol/L K Normal 4.4 LAB L501.5900 98-107 mmol/L High CL 112 LAB L501.6100 21.0-32.0 mmol/L Normal CO2 21.0 Performed By: #### L100.0100, L500.3600, L503.6030, L503.6550 #### [facility] [address] [facility]. [place], [place], [id number] IRON+IRON BINDING Collected: 11/24/2017 Status: F Source: [facility] 7:34 AM [facility] REPOSITORY Order Comment: Comments: COPY ALL RESULTS TO DR. PEDERSEN FAX [phone] Comments: COPY ALL RESULTS TO DR. PEDERSEN FAX [phone] TYPE CODE TESTS RESULT OUT OF RANGE REFERENCE UNITS LAB L503.6075 250-450 ug/dL Low TIBC 240 LAB L503.6150 50-170 ug/dL IRON Normal 58 LAB L503.6250 15.0-55.0 % IRON Normal SATURATION 24.2 Performed By: #### L100.0100, L500.3600, L503.6030, L503.6550 #### [facility] [address] [place], [place], [id number] FERRITIN Collected: 11/24/2017 Status: F Source: [place] 7:34 AM [facility] REPOSITORY Order Comment: Comments: COPY ALL RESULTS TO DR. PEDERSEN FAX [phone] Comments: COPY ALL RESULTS TO DR. PEDERSEN FAX [phone] TYPE CODE TESTS RESULT OUT OF RANGE REFERENCE UNITS LAB L503.6550 8-252 ng/mL Normal FERRITIN 101 Performed By: #### L100.0100, L500.3600, L503.6030, L503.6550 #### [facility] [address] [place], [place], [address] GLUCOSE POC Collected: 11/20/2017 Status: F Source: [facility] 12:13 PM [facility] REPOSITORY TYPE CODE TESTS RESULT OUT OF REFERENCE UNITS RANGE LAB 03092475(LO 70-99 mg/dL INC) High Glucose POC 112 Performed By: #### [id number] #### [facility] POC Subsection [address] [place] [address] GLUCOSE POC Collected: 11/20/2017 Status: F Source: [facility] 7:24 AM [facility] REPOSITORY TYPE CODE TESTS RESULT OUT OF RANGE REFERENCE UNITS LAB 72184601(LO 70-99 mg/dL INC) Normal Glucose POC 76 Performed By: #### [id number] #### [facility] POC Subsection [facility] [place] [address] BMP Collected: 11/20/2017 Status: F Source: [facility] 6:03 AM [facility] REPOSITORY TYPE CODE TESTS RESULT OUT OF RANGE REFERENCE UNITS LAB 85624266(L 70-99 mg/dL OINC) Low Glucose Lvl 68 LAB 00444542(L 7-18 mg/dL OINC) High BUN 69 LAB 6917244(LO 0.6-1.3 mg/dL INC) High Creatinine 2.3 LAB 55917198(L 5.4-30.0 ratio OINC) Normal BUN/Creat Ratio 30.0 LAB 85876351(L 8.4-10.2 mg/dL OINC) Low Calcium Lvl 8.1 LAB 87131428(L 136-145 mEq/L OINC) Sodium Normal Lvl 143 LAB 89987791(L 3.5-5.1 mEq/L OINC) Normal Potassium Lvl 3.9 LAB 00465450(L 98-107 mEq/L OINC) High Chloride 119 LAB 26289204(L 24.0-30.0 mEq/L OINC) Low CO2 19.2 Performed By: #### [id number] #### [facility] [place] [address] EGFR Collected: 11/20/2017 Status: F Source: [facility] 6:03 AM [facility] REPOSITORY Order Comment: Order added by Discern Expert. TYPE CODE TESTS RESULT OUT OF RANGE REFERENCE UNITS LAB 95282840(LO mL/min/1.73 INC) m2 Normal eGFR 21 LAB 66842733(LO mL/min/1.73 INC) m2 Normal eGFR AA 25 Performed By: #### [id number] #### [facility] [address] [place] [address] GLUCOSE POC Collected: 11/19/2017 Status: F Source: [facility] 8:34 PM [facility] REPOSITORY TYPE CODE TESTS RESULT OUT OF REFERENCE UNITS RANGE LAB 22245446(LO 70-99 mg/dL INC) High Glucose POC 138 Performed By: #### [id number] #### [facility] POC Subsection [address] [place] [address] GLUCOSE POC Collected: 11/19/2017 Status: F Source: [facility] 4:31 PM [facility] REPOSITORY TYPE CODE TESTS RESULT OUT OF REFERENCE UNITS RANGE LAB 46383277(LO 70-99 mg/dL INC) High Glucose POC 129 Performed By: #### [id number] #### [facility] POC [facility]section [address] [place] [address] GLUCOSE POC Collected: 11/19/2017 Status: F Source: [facility] 11:44 AM [facility] REPOSITORY TYPE CODE TESTS RESULT OUT OF REFERENCE UNITS RANGE LAB 58917774(LO 70-99 mg/dL INC) High Glucose POC 138 Performed By: #### [id number] #### [facility] P[facility] [address]section [address] [place] [address] GLUCOSE POC Collected: 11/19/2017 Status: F Source: [facility] 7:31 AM [facility] REPOSITORY TYPE CODE TESTS RESULT OUT OF RANGE REFERENCE UNITS LAB 64850796(LO 70-99 mg/dL INC) Normal Glucose POC 71 Performed By: #### [id number] #### [facility] POC Subsection [address] [place], [place] [address] CBC W/ AUTO DIFF Collected: 11/19/2017 Status: F Source: [facility] 6:07 AM [facility] REPOSITORY TYPE CODE TESTS RESULT OUT OF RANGE REFERENCE UNITS LAB 13354818(L 3.6-11.0 E3/mcL OINC) Normal WBC 6.2 LAB 17814033(L 3.90-5.40 E6/mcL OINC) Low RBC 2.81 LAB 94633488(L 12.0-16.0 G/DL OINC) Low Hgb 9.2 LAB 83985782(L 36.0-48.0 % OINC) Low Hct 27.5 LAB 66075176(L 11.5-14.5 % OINC) Normal RDW 14.1 LAB 66000920(L 27.0-31.0 pg OINC) High MCH 32.9 LAB 11411396(L 33.0-37.0 G/DL OINC) Normal MCHC 33.6 LAB 55409825(L 78.0-100.0 fL OINC) Normal MCV 97.8 LAB 21661528(L 7.4-11.0 fL OINC) Normal MPV 8.1 LAB 26239790(L 130-400 E3/mcL OINC) Normal Platelet 218 Performed By: #### [id number] #### [facility] [address] [place] [address] AUTO DIFF Collected: 11/19/2017 Status: F Source: [facility] 6:07 AM [facility] REPOSITORY Order Comment: Order Added by Discern Expert. TYPE CODE TESTS RESULT OUT OF RANGE REFERENCE UNITS LAB 40862939(L 37.0-75.0 % OINC) Normal Neutro Auto 57.0 LAB 10452072(L 20.0-55.0 % OINC) Normal Lymph Auto 26.3 LAB 30908145(L 0.0-10.0 % OINC) High [place] Auto 11.0 LAB 87003693(L 0.0-11.0 % OINC) Normal Eos Auto 5.4 LAB 51293182(L 0.0-2.0 % OINC) Normal Basophil Auto 0.3 LAB 74504852(L 1.4-6.5 E3/mcL OINC) Normal Neutro 3.5 Absolute LAB 44243287(L 1.2-3.4 E3/mcL OINC) Normal Lymph Absolute 1.6 LAB 13405341(L 0.0-0.7 E3/mcL OINC) Normal [place] Absolute 0.7 LAB 42309369(L 0.0-0.7 E3/mcL OINC) Normal Eos Absolute 0.3 LAB 96700189(L 0.0-0.2 E3/mcL OINC) Normal Basophil 0.0 Absolute Performed By: #### [id number] #### [facility] [address] [place] [address] BMP Collected: 11/19/2017 Status: F Source: [facility] 6:07 AM [facility] REPOSITORY TYPE CODE TESTS RESULT OUT OF RANGE REFERENCE UNITS LAB 45451854(L 70-99 mg/dL OINC) Glucose Normal Lvl 73 LAB 86545795(L 7-18 mg/dL OINC) High BUN 84 LAB 4795348(LO 0.6-1.3 mg/dL INC) High Creatinine 2.8 LAB 22095199(L 5.4-30.0 ratio OINC) Normal BUN/Creat Ratio 30.0 LAB 07839154(L 8.4-10.2 mg/dL OINC) Low Calcium Lvl 8.2 LAB 42909322(L 136-145 mEq/L OINC) Sodium Normal Lvl 142 LAB 98311560(L 3.5-5.1 mEq/L OINC) Normal Potassium Lvl 3.8 LAB 06278480(L 98-107 mEq/L OINC) High Chloride 117 LAB 01596615(L 24.0-30.0 mEq/L OINC) Low CO2 19.4 Performed By: #### [id number] #### [facility] [place] [address] EGFR Collected: 11/19/2017 Status: F Source: [facility] 6:07 AM [facility] REPOSITORY Order Comment: Order added by Discern Expert. TYPE CODE TESTS RESULT OUT OF RANGE REFERENCE UNITS LAB 60120223(LO mL/min/1.73 INC) m2 Normal eGFR 16 LAB 78764105(LO mL/min/1.73 INC) m2 Normal eGFR AA 20 Performed By: #### [id number] #### [facility] [address] [place] [address] GLUCOSE POC Collected: 11/18/2017 Status: F Source: [facility] 8:20 PM [facility] REPOSITORY TYPE CODE TESTS RESULT OUT OF REFERENCE UNITS RANGE LAB 41770602(LO 70-99 mg/dL INC) High Glucose POC 164 Performed By: #### [id number] #### [facility] POC Subsection [facility] [place] [address] GLUCOSE POC Collected: 11/18/2017 Status: F Source: [facility] 4:35 PM [facility] REPOSITORY TYPE CODE TESTS RESULT OUT OF REFERENCE UNITS RANGE LAB 89720654(LO 70-99 mg/dL INC) High Glucose POC 103 Performed By: #### [id number] #### [facility] POC Subsection [address] [place] [address] U SODIUM Collected: 11/18/2017 Status: F Source: [facility] 2:45 PM [facility] REPOSITORY TYPE CODE TESTS RESULT OUT OF RANGE REFERENCE UNITS LAB 13185020(LO 40-220 mEq/L INC) Normal U Sodium 43 Performed By: #### [id number] #### [facility] [address] [place] [address] U CREATININE Collected: 11/18/2017 Status: F Source: [facility] 2:45 PM [facility] REPOSITORY TYPE CODE TESTS RESULT OUT OF RANGE REFERENCE UNITS LAB 16222094(L 20-300 mg/dL OINC) U Normal Creatinine 83 Performed By: #### [id number] #### [facility] [address] [place] [address] 12383 U PROTEIN Collected: 11/18/2017 Status: F Source: [facility] 2:45 PM [facility] REPOSITORY TYPE CODE TESTS RESULT OUT OF REFERENCE UNITS RANGE LAB 17504428(LO 1-14 mg/dL INC) Ur High Total Protein 16 Performed By: #### [id number] #### [facility] [address] [place] [address] UA COMPLETE Collected: 11/18/2017 Status: F Source: [facility] 2:45 PM [facility] REPOSITORY TYPE CODE TESTS RESULT OUT OF RANGE REFERENCE UNITS LAB 03443133( Yellow LOINC) Normal UA Color Yellow LAB 28820175( Clear LOINC) Normal UA Clarity Clear LAB 12518607( Negative LOINC) Normal UA Glucose Negative LAB 34414738( Negative LOINC) Normal UA Bili Negative LAB 40536784( Negative LOINC) Normal UA Ketones Negative LAB 94836925( 1.003-1.030 LOINC) Normal UA Spec Grav 1.011 LAB 56053534( 4.6-8.0 LOINC) Normal UA pH 5.0 LAB 56980888( Negative LOINC) Normal UA Protein Negative LAB 73864267( mg/dL LOINC) Normal UA Urobilinogen Negative LAB 75158539( Negative LOINC) Normal UA Nitrite Negative LAB 96345819( Negative LOINC) Normal UA Blood Negative LAB 12974160( Negative LOINC) Normal UA Leuk Est Negative LAB 38341653( 0-3 /HPF LOINC) Normal UA RBC 0-3 LAB 29999155( 0-5 /HPF LOINC) Normal UA WBC 0-5 LAB 58241704( 0-2 /LPF LOINC) Normal UA Hyal Cast 0-2 LAB 88486393( 0-5 /HPF LOINC) Normal UA Squam Epithelial 0-5 LAB 43694692( None /HPF LOINC) UA Bacteria Abnormal 1+ Performed By: #### [id number] #### [facility] Urinalysis Automated Subsection [facility] [place] [address] GLUCOSE POC Collected: 11/18/2017 Status: F Source: [facility] 11:34 AM [facility] REPOSITORY TYPE CODE TESTS RESULT OUT OF REFERENCE UNITS RANGE LAB 26392394(LO 70-99 mg/dL INC) High Glucose POC 164 Performed By: #### [id number] #### [facility] POC Subsection [address] [place] [address] GLUCOSE POC Collected: 11/18/2017 Status: F Source: [facility] 7:11 AM [facility] REPOSITORY TYPE CODE TESTS RESULT OUT OF REFERENCE UNITS RANGE LAB 10957159(LO 70-99 mg/dL INC) High Glucose POC 100 Performed By: #### [id number] #### [facility] POC Subsection [address] [place] [address] BMP Collected: 11/18/2017 Status: F Source: [facility] 4:49 AM [facility] REPOSITORY TYPE CODE TESTS RESULT OUT OF RANGE REFERENCE UNITS LAB 21347875(L 70-99 mg/dL OINC) High Glucose Lvl 103 LAB 47184097(L 7-18 mg/dL OINC) High BUN 91 LAB 1391515(LO 0.6-1.3 mg/dL INC) High Creatinine 3.5 LAB 05469663(L 5.4-30.0 ratio OINC) Normal BUN/Creat Ratio 26.0 LAB 85977794(L 8.4-10.2 mg/dL OINC) Low Calcium Lvl 7.9 LAB 18812808(L 136-145 mEq/L OINC) Sodium Normal Lvl 140 LAB 52117263(L 3.5-5.1 mEq/L OINC) Normal Potassium Lvl 4.0 LAB 35765806(L 98-107 mEq/L OINC) High Chloride 114 LAB 27355802(L 24.0-30.0 mEq/L OINC) Low CO2 18.5 Performed By: #### [id number] #### [facility] [address] [place] [address] EGFR Collected: 11/18/2017 Status: F Source: [facility] 4:49 AM [facility] REPOSITORY Order Comment: Order added by Discern Expert. TYPE CODE TESTS RESULT OUT OF RANGE REFERENCE UNITS LAB 86949339(LO mL/min/1.73 INC) m2 Normal eGFR 13 LAB 58865777(LO mL/min/1.73 INC) m2 Normal eGFR AA 15 Performed By: #### [id number] #### [facility] [address] [place] [address] CBC W/ AUTO DIFF Collected: 11/18/2017 Status: F Source: [facility] 4:47 AM [facility] REPOSITORY TYPE CODE TESTS RESULT OUT OF RANGE REFERENCE UNITS LAB 08550990(L 3.6-11.0 E3/mcL OINC) Normal WBC 5.6 LAB 38317032(L 3.90-5.40 E6/mcL OINC) Low RBC 2.85 LAB 41518491(L 12.0-16.0 G/DL OINC) Low Hgb 9.6 LAB 15967611(L 36.0-48.0 % OINC) Low Hct 28.1 LAB 36318500(L 11.5-14.5 % OINC) Normal RDW 14.5 LAB 83376401(L 27.0-31.0 pg OINC) High MCH 33.5 LAB 40720361(L 33.0-37.0 G/DL OINC) Normal MCHC 34.0 LAB 29338805(L 78.0-100.0 fL OINC) Normal MCV 98.6 LAB 95089495(L 7.4-11.0 fL OINC) Normal MPV 8.1 LAB 37805361(L 130-400 E3/mcL OINC) Normal Platelet 225 Performed By: #### [id number] #### [facility] [address] [place] [address] AUTO DIFF Collected: 11/18/2017 Status: F Source: [facility] 4:47 AM [facility] REPOSITORY Order Comment: Order Added by Discern Expert. TYPE CODE TESTS RESULT OUT OF RANGE REFERENCE UNITS LAB 51469493(L 37.0-75.0 % OINC) Normal Neutro Auto 54.9 LAB 70692112(L 20.0-55.0 % OINC) Normal Lymph Auto 28.2 LAB 17625562(L 0.0-10.0 % OINC) High [place] Auto 13.4 LAB 24665207(L 0.0-11.0 % OINC) Normal Eos Auto 2.9 LAB 70510587(L 0.0-2.0 % OINC) Normal Basophil Auto 0.6 LAB 97189686(L 1.4-6.5 E3/mcL OINC) Normal Neutro 3.1 Absolute LAB 63059655(L 1.2-3.4 E3/mcL OINC) Normal Lymph Absolute 1.6 LAB 70863771(L 0.0-0.7 E3/mcL OINC) High [place] Absolute 0.8 LAB 25826309(L 0.0-0.7 E3/mcL OINC) Normal Eos Absolute 0.2 LAB 52237548(L 0.0-0.2 E3/mcL OINC) Normal Basophil 0.0 Absolute Performed By: #### [id number] #### [facility] [place] [address] GLUCOSE POC Collected: 11/17/2017 Status: F Source: [facility] 9:11 PM [facility] REPOSITORY TYPE CODE TESTS RESULT OUT OF REFERENCE UNITS RANGE LAB 60230922(LO 70-99 mg/dL INC) High Glucose POC 134 Performed By: #### [id number] #### [facility] POC Subsection [facility] [place] [address] GLUCOSE POC Collected: 11/17/2017 Status: F Source: [facility] 4:19 PM [facility] REPOSITORY TYPE CODE TESTS RESULT OUT OF REFERENCE UNITS RANGE LAB 31069516(LO 70-99 mg/dL INC) High Glucose POC 137 Performed By: #### [id number] #### [facility] POC Subsection [address] [place], [place] [address] GLUCOSE POC Collected: 11/17/2017 Status: F Source: [facility] 11:19 AM [facility] REPOSITORY TYPE CODE TESTS RESULT OUT OF REFERENCE UNITS RANGE LAB 49271258(LO 70-99 mg/dL INC) High Glucose POC 130 Performed By: #### [id number] #### [facility] POC Subsection [address] [place] [address] GLUCOSE POC Collected: 11/17/2017 Status: F Source: [facility] 7:44 AM [facility] REPOSITORY TYPE CODE TESTS RESULT OUT OF RANGE REFERENCE UNITS LAB 71850980(LO 70-99 mg/dL INC) Normal Glucose POC 78 Performed By: #### [id number] #### [facility] POC Subsection [address] [place] [address] BMP Collected: 11/17/2017 Status: F Source: [facility] 5:57 AM [facility] REPOSITORY TYPE CODE TESTS RESULT OUT OF RANGE REFERENCE UNITS LAB 83421468(L 70-99 mg/dL OINC) Normal Glucose Lvl 80 LAB 53575479(L 7-18 mg/dL OINC) Abnormal Alert BUN 106 Result Comment: Critical Result BUN: Called to: MARY CARMEN BUCHANAN at: 06:45:11 by:[facility] Read back by:MARY CARMEN BUCHANAN LAB 8730169(LOINC) 0.6-1.3 mg/dL High Creatinine 4.2 LAB 07069494(LOINC) 5.4-30.0 ratio Normal BUN/Creat Ratio 25.2 LAB 29072604(LOINC) 8.4-10.2 mg/dL Normal Calcium Lvl 8.5 LAB 97552940(LOINC) 136-145 mEq/L Low Sodium Lvl 135 LAB 55368277(LOINC) 3.5-5.1 mEq/L Normal Potassium Lvl 3.7 LAB 66261609(LOINC) 98-107 mEq/L High Chloride 108 LAB 28971655(LOINC) 24.0-30.0 mEq/L Low CO2 18.1 Performed By: #### [id number] #### [facility] [place] [address] EGFR Collected: 11/17/2017 Status: F Source: [facility] 5:57 AM [facility] REPOSITORY Order Comment: Order added by Discern Expert. TYPE CODE TESTS RESULT OUT OF RANGE REFERENCE UNITS LAB 23004529(LO mL/min/1.73 INC) m2 Normal eGFR 10 LAB 88195923(LO mL/min/1.73 INC) m2 Normal eGFR AA 12 Performed By: #### [id number] #### [facility] [place] [address] HGBA1C Collected: 11/17/2017 Status: F Source: [facility] 5:57 AM [facility] REPOSITORY TYPE CODE TESTS RESULT OUT OF RANGE REFERENCE UNITS LAB 979006153( 4.0-6.3 % LOINC) Normal Hemoglobin A1c 6.1 Performed By: #### [id number] #### [facility] Chemistry Manual Subsection [facility] [place] [address] XR ABDOMEN ACUTE (PA Observed: 11/17/2017 Status: F Source: [facility] CHEST) 1:15 AM [facility] REPOSITORY Exam Date/Time: 11/17/2017 01:15 EST Reason for Exam: Abdominal pain Report XR Abdomen Acute (PA Chest) 11/17/2017 1:15 AM Indication: Nausea vomiting and diarrhea. Abdominal pain. Comparison: None Upright PA chest. Upright and supine AP abdomen. No acute intrathoracic process. Scattered small and large bowel gas without abnormal bowel dilation. Multiple fluid levels. No free air. Pelvic calcifications likely fibroids. IMPRESSION: Findings may reflect enterocolitis. Otherwise no acute abnormality. FINAL REPORT Dictated: 11/17/2017 1:55 am Gregory Guadarrama MD, I Signed (Electronic Signature): 11/17/2017 1:55 am Signed by: Gregory Guadarrama MD, I Technologist: MIRIAM C DIFFICILE/EPI BY PCR Collected: 11/17/2017 Status: F Source: [facility] 1:04 AM [facility] REPOSITORY TYPE CODE TESTS RESULT OUT OF RANGE REFERENCE UNITS LAB [id number]( Negative LOINC) Normal Toxigenic C. Negative diff PCR Result Comment: Performance characteristics were not established for patients < 2 years of age. LAB [id number](LOINC) Presumptive Neg Normal 027-NAP1-B1 by Presumptive Neg PCR Result Comment: Detection of 027/NAP1/B1 strains of C. difficile is presumptive and is solely for epidemiological purpose and is not intended to guide or monitor treatment for C. difficile infections. Performed By: #### [id number] #### [facility] Mis Micro SubSection , CBC W/ AUTO DIFF Collected: 11/17/2017 Status: F Source: [facility] 1:00 AM [facility] REPOSITORY TYPE CODE TESTS RESULT OUT OF RANGE REFERENCE UNITS LAB [id number](L 3.6-11.0 E3/mcL OINC) Normal WBC 6.9 LAB [id number](L 3.90-5.40 E6/mcL OINC) Low RBC 3.29 LAB [id number](L 12.0-16.0 G/DL OINC) Low Hgb 10.8 LAB 52438711(L 36.0-48.0 % OINC) Low Hct 32.8 LAB 58033711(L 11.5-14.5 % OINC) High RDW 14.8 LAB [id number](L 27.0-31.0 pg OINC) High MCH 32.7 LAB [id number](L 33.0-37.0 G/DL OINC) Low MCHC 32.8 LAB [id number](L 78.0-100.0 fL OINC) Normal MCV 99.7 LAB [id number](L 7.4-11.0 fL OINC) Normal MPV 8.1 LAB [id number](L 130-400 E3/mcL OINC) Normal Platelet 244 Performed By: #### [id number] #### [facility] [address] [place] [address] AUTO DIFF Collected: 11/17/2017 Status: F Source: [facility] 1:00 AM [facility] REPOSITORY Order Comment: Order Added by Discern Expert. TYPE CODE TESTS RESULT OUT OF RANGE REFERENCE UNITS LAB [id number](L 37.0-75.0 % OINC) Normal Neutro Auto 70.9 LAB [id number](L 20.0-55.0 % OINC) Low Lymph Auto 13.4 LAB 79360480(L 0.0-10.0 % OINC) High [place] Auto 14.7 LAB 09482752(L 0.0-11.0 % OINC) Normal Eos Auto 0.4 LAB 44652809(L 0.0-2.0 % OINC) Normal Basophil Auto 0.6 LAB 12552153(L 1.4-6.5 E3/mcL OINC) Normal Neutro 4.9 Absolute LAB 66007993(L 1.2-3.4 E3/mcL OINC) Low Lymph Absolute 0.9 LAB 81428956(L 0.0-0.7 E3/mcL OINC) High [place] Absolute 1.0 LAB 72492156(L 0.0-0.7 E3/mcL OINC) Normal Eos Absolute 0.0 LAB [id number](L 0.0-0.2 E3/mcL OINC) Normal Basophil 0.0 Absolute Performed By: #### [id number] #### [facility] [address] [place] [address] LACTIC ACID Collected: 11/17/2017 Status: F Source: [facility] 1:00 AM [facility] REPOSITORY TYPE CODE TESTS RESULT OUT OF RANGE REFERENCE UNITS LAB [id number](LO 0.5-2.2 mmol/L INC) Normal Lactic Acid 1.3 Lvl Performed By: #### [id number] #### [facility] [address] [place] [address] HEP FUNC PANEL Collected: 11/17/2017 Status: F Source: [facility] 1:00 AM [facility] REPOSITORY TYPE CODE TESTS RESULT OUT OF RANGE REFERENCE UNITS LAB 73030083(L 10-40 Int._Unit/L OINC) Normal ALT 16 LAB 89176809(L 10-42 Int._Unit/L OINC) Normal AST 15 LAB 47201786(L 3.2-5.0 G/DL OINC) Normal Albumin Lvl 3.3 LAB 46521226(L 2.0-4.0 G/DL OINC) Normal Globulin 2.9 LAB 51473092(L 1.1-1.9 ratio OINC) Normal A/G Ratio 1.1 LAB 41310240(L 42-121 Int._Unit/L OINC) Normal Alk Phos 47 LAB 84272337(L .00-.20 mg/dL OINC) Normal Bili Direct <.10 LAB 43306361(L OINC) Normal Bili Indirect >0.3 Result Comment: No established ranges available for the Indirect Biliruben. LAB 27604603(LOINC) 0.2-1.0 mg/dL Normal Bili Total 0.4 LAB 46033047(LOINC) 6.4-8.3 G/DL Low Total Protein 6.2 Performed By: #### [id number] #### [facility] [address] [place] [address] LIPASE LEVEL Collected: 11/17/2017 Status: F Source: [facility] 1:00 AM [facility] REPOSITORY TYPE CODE TESTS RESULT OUT OF RANGE REFERENCE UNITS LAB 31805704(LO 8-57 U/L INC) Normal Lipase Lvl 12 Performed By: #### [id number] #### [facility] [address] [place] [address] BMP Collected: 11/17/2017 Status: F Source: [facility] 1:00 AM [facility] REPOSITORY TYPE CODE TESTS RESULT OUT OF RANGE REFERENCE UNITS LAB 80027139(L 70-99 mg/dL OINC) Normal Glucose Lvl 77 LAB 6218718(LO 0.6-1.3 mg/dL INC) High Creatinine 4.7 LAB 49192839(L 8.4-10.2 mg/dL OINC) Normal Calcium Lvl 9.3 LAB 27432679(L 136-145 mEq/L OINC) Low Sodium Lvl 135 LAB 46874173(L 3.5-5.1 mEq/L OINC) Normal Potassium Lvl 3.5 LAB 44648934(L 98-107 mEq/L OINC) Normal Chloride 106 LAB 79516164(L 24.0-30.0 mEq/L OINC) Low CO2 17.2 LAB 62139266(L 7-18 mg/dL OINC) BUN Abnormal 106 Alert Result Comment: Critical Result BUN: Called to: LALY DIGGS at: 01:31:55 by:MICKEY Read back by:LALY DIGGS LAB 36962157(LOINC) 5.4-30.0 ratio Normal BUN/Creat Ratio 22.6 Performed By: #### [id number] #### [facility] [address] [place] [address] EGFR Collected: 11/17/2017 Status: F Source: [facility] 1:00 AM [facility] REPOSITORY Order Comment: Order added by Discern Expert. TYPE CODE TESTS RESULT OUT OF RANGE REFERENCE UNITS LAB 67422600(LO mL/min/1.73 INC) m2 Normal eGFR 9 LAB 00151027(LO mL/min/1.73 INC) m2 Normal eGFR AA 11 Performed By: #### [id number] #### [facility] [place] [address] HH, HEMOGLOBIN AND Collected: 11/10/2017 Status: F Source: [facility] 7:33 AM [facility] REPOSITORY TYPE CODE TESTS RESULT OUT OF RANGE REFERENCE UNITS LAB L100.1300 12.0-15.0 g/dl Low HGB 10.3 LAB L100.1400 37-47 % Low HCT 33.4 Performed By: #### L100.0600 #### [facility] [address] [place], [address] CBC-COMPLETE BLOOD CNT Collected: 10/27/2017 Status: F Source: [place] NO DIFF 7:30 AM [facility] REPOSITORY TYPE CODE TESTS RESULT OUT OF RANGE REFERENCE UNITS LAB L100.1000 4.4-11.0 K/mm3 Normal WBC 5.9 LAB L100.1200 4.2-5.4 M/mm3 Low RBC 3.09 LAB L100.1300 12.0-15.0 g/dl Low HGB 10.1 LAB L100.1400 37-47 % Low HCT 31.8 LAB L100.1500 81-99 fL High MCV 102.9 LAB L100.1600 27.0-32.0 pg High MCH 32.7 LAB L100.1700 32-36 g/gl Low MCHC 31.8 LAB L100.1810 11.6-14.6 % Normal RDW CV 13.3 LAB L100.1820 35.1-43.9 fl High RDW SD 48.9 LAB L100.1900 150-450 K/mm3 Normal PLT 235 LAB L100.2000 6.2-12.0 fl Normal MPV 10.1 Performed By: #### L100.0500, L500.3600 #### [facility] [address] [place], [address] RENAL PROFILE Collected: 10/27/2017 Status: F Source: [place] 7:30 AM [facility] REPOSITORY TYPE CODE TESTS RESULT OUT OF RANGE REFERENCE UNITS LAB L501.0100 74-106 mg/dL High GLU 167 Result Comment: Fasting Glucose result greater than or equal to 126 mg/dL suggests DIABETES MELLITUS per A.D.A. criteria. Please note revised GLUCOSE reference range effective 2017. LAB L501.1000 7-18 mg/dL High BUN 90 LAB L501.1100 0.55-1.02 mg/dL High CREAT,SERUM 3.05 Result Comment: The validity of the calculated GFR AND GFRAA in patients over 70 years has not been determined. Clinical correlation is essential. LAB L501.1110 >60 mL/min Low EST GFR 16 Result Comment: Non- GFR Calc LAB L501.1115 >60 mL/min Low EST GFR - AA 19 Result Comment: GFR Calc LAB L501.1255 ml/min Normal Estimated CRCL 14.46 LAB L501.1300 10-20 RATIO High BUN/CRE 29.5 LAB L501.1800 3.2-5. g/dL Normal 0 ALB 3.2 LAB L501.2200 8.5-10 mg/dL Normal .1 CA 9.5 LAB L501.2300 2.5-4. mg/dL Normal 9 PHOS 4.6 LAB L501.5300 136-14 mmol/L Normal 5 NA 141 LAB L501.5600 3.5-5. mmol/L Normal 1 K 3.7 LAB L501.5900 98-107 mmol/L Normal CL 105 LAB L501.6100 21.0-3 mmol/L Normal 2.0 CO2 23.0 Performed By: #### L100.0500, L500.3600 #### [facility] [address] [place], [place], [id number] HH, HEMOGLOBIN AND Collected: 10/13/2017 Status: F Source: [facility] 7:36 AM [facility] REPOSITORY TYPE CODE TESTS RESULT OUT OF RANGE REFERENCE UNITS LAB L100.1300 12.0-15.0 g/dl Low HGB 9.9 LAB L100.1400 37-47 % Low HCT 31.8 Performed By: #### L100.0600 #### [facility] [address] [facility] [address] [place], [place], [address] CBC-COMPLETE BLOOD CNT Collected: 09/29/2017 Status: F Source: [place] NO DIFF 7:25 AM [facility] REPOSITORY Order Comment: TSH,A1C,T4F,LIPID,BMP FOR NOVY TYPE CODE TESTS RESULT OUT OF RANGE REFERENCE UNITS LAB L100.1000 4.4-11.0 K/mm3 Normal WBC 6.8 LAB L100.1200 4.2-5.4 M/mm3 Low RBC 3.11 LAB L100.1300 12.0-15.0 g/dl Low HGB 10.1 LAB L100.1400 37-47 % Low HCT 32.1 LAB L100.1500 81-99 fL High MCV 103.2 LAB L100.1600 27.0-32.0 pg High MCH 32.5 LAB L100.1700 32-36 g/gl Low MCHC 31.5 LAB L100.1810 11.6-14.6 % Normal RDW CV 13.2 LAB L100.1820 35.1-43.9 fl High RDW SD 48.9 LAB L100.1900 150-450 K/mm3 Normal PLT 257 LAB L100.2000 6.2-12.0 fl Normal MPV 10.2 Performed By: #### L100.0500 #### [facility] [address] [facility] [place], [address] HEMOGLOBIN A1C Collected: 09/29/2017 Status: F Source: [place] 7:25 AM [facility] REPOSITORY Order Comment: TSH,A1C,T4F,LIPID,BMP FOR ERNIEY Comments: FAX RESULTS TO DR. ZEV PEPE [phone] TYPE CODE TESTS RESULT OUT OF RANGE REFERENCE UNITS LAB L501.9985 4.2-6.3 % Normal HGB A1C 6.2 Performed By: #### L501.9985 #### [facility] [address] [facility] [place], [address] RENAL PROFILE Collected: 09/29/2017 Status: F Source: [place] 7:25 AM [facility] REPOSITORY Order Comment: TSH,A1C,T4F,LIPID,BMP FOR NOVY Comments: FAX RESULTS TO DR. ZEV PEPE [phone] Comments: FAX RESULTS TO DR. ZEV PEPE [phone] TYPE CODE TESTS RESULT OUT OF RANGE REFERENCE UNITS LAB L501.0100 70-110 mg/dL High GLU 139 Result Comment: Fasting Glucose result greater than or equal to 126 mg/dL suggests DIABETES MELLITUS per A.D.A. criteria. LAB L501.1000 7-18 mg/dL High BUN 87 LAB L501.1100 0.55-1.02 mg/dL High CREAT,SERUM 3.05 Result Comment: The validity of the calculated GFR AND GFRAA in patients over 70 years has not been determined. Clinical correlation is essential. LAB L501.1110 >60 mL/min Low EST GFR 16 Result Comment: Non- GFR Calc LAB L501.1115 >60 mL/min Low EST GFR - AA 19 Result Comment: GFR Calc LAB L501.1255 ml/min Normal Estimated CRCL 14.46 LAB L501.1300 10-20 RATIO High BUN/CRE 28.5 LAB L501.1800 3.4-5. g/dL Low 0 ALB 3.2 Result Comment: Please note revised Albumin AND Globulin reference range effective 2017. LAB L501.2200 8.5-10.1 mg/dL Normal CA 9.4 LAB L501.2300 2.5-4.9 mg/dL Normal PHOS 3.3 LAB L501.5300 136-145 mmol/L Normal NA 142 LAB L501.5600 3.5-5.1 mmol/L Normal K 3.6 LAB L501.5900 98-107 mmol/L High CL 109 LAB L501.6100 21.0-32.0 mmol/L Normal CO2 24.0 Performed By: #### L500.3600, L500.4100, L501.9520, L506.0400 #### [facility] [address] [place], [address] LIPID PROFILE Collected: 09/29/2017 Status: F Source: [place] 7:25 AM [facility] REPOSITORY Order Comment: TSH,A1C,T4F,LIPID,BMP FOR MY Comments: FAX RESULTS TO DR. ZEV PEPE [phone] Comments: FAX RESULTS TO DR. ZEV PEPE [phone] TYPE CODE TESTS RESULT OUT OF RANGE REFERENCE UNITS LAB L501.4900 200 mg/dL Normal CHOL 134 Result Comment: <200 mg/dL Desirable 200-240 mg/dL Borderline >240 mg/dL High Risk LAB L501.5000 mg/dL Normal TRIG 64 Result Comment: The drugs N-Acetylcysteine and Metamizole may falsely depress this assay. Serum Triglycerides Reference Interval Normal <150 mg/dL Borderline high 150 - 199 mg/dL High 200 - 499 mg/dL Very High > or = 500 mg/dL LAB L501.6400 mg/dL Normal HDL 53 Result Comment: The drugs N-Acetylcysteine and Metamizole may falsely depress this assay. Reference Range HDL <40 mg/dL Low HDL Cholesterol HDL >or= 60 mg/dL High HDL Cholesterol LAB L501.6500 0-130 mg/dL Normal LDL 68 LAB L501.6600 5-40 mg/dL Normal VLDL 13 Performed By: #### L500.3600, L500.4100, L501.9520, L506.0400 #### [facility] [address], [place], [address] THYROID STIM HORMONE Collected: 09/29/2017 Status: F Source: [facility] ([facility]) 7:25 AM [facility] REPOSITORY Order Comment: TSH,A1C,T4F,LIPID,BMP FOR MY Comments: FAX RESULTS TO DR. ZEV PEPE [phone] Comments: FAX RESULTS TO DR. ZEV PEPE [phone] TYPE CODE TESTS RESULT OUT OF RANGE REFERENCE UNITS LAB L501.9520 0.358-3.74 uIU/mL Normal TSH 0.91 Performed By: #### L500.3600, L500.4100, L501.9520, L506.0400 #### [facility] [address], [place], [address] T4 FREE DIRECT Collected: 09/29/2017 Status: F Source: [place] 7:25 AM [facility] REPOSITORY Order Comment: TSH,A1C,T4F,LIPID,BMP FOR MY Comments: FAX RESULTS TO DR. ZEV PEPE [phone] Comments: FAX RESULTS TO DR. ZEV PEPE [phone] TYPE CODE TESTS RESULT OUT OF RANGE REFERENCE UNITS LAB L506.0400 0.76-1.46 ng/dL Normal T4 FREE 0.99 DIRECT Performed By: #### L500.3600, L500.4100, L501.9520, L506.0400 #### [facility] [address] [place], [address] HH, HEMOGLOBIN AND Collected: 09/15/2017 Status: F Source: [facility] 7:30 AM [facility] REPOSITORY TYPE CODE TESTS RESULT OUT OF RANGE REFERENCE UNITS LAB L100.1300 12.0-15.0 g/dl Low HGB 10.4 LAB L100.1400 37-47 % Low HCT 33.0 Performed By: #### L100.0600 #### [facility] [address] [place], [address] ALLERGIES ALLERGIES DATE TYPE / CODE NAME / CODE REACTION SEVERITY SOURCE 07/20/2018 Drug Penicillins/[id number] Rash [facility] Allergy/416 0476(RXNORM) [facility] 537647([facility]) Repository Drug/995062 penicillins Scientologist 003([facility]) System Repository ENCOUNTERS ENCOUNTERS ADMIT/DISCHARGE ACCOUNT ADMITTING ENCOUNTER LOCATION SOURCE NUMBER CLASS 08/31/2018 [id number] [facility] ing:MEDOUTP Repository 08/16/2018 [id number] [facility] ing:MEDOUTP Repository 08/03/2018 [id number] [facility] ing:MEDOUTP Repository 07/20/2018 [id number] [facility] ing:MEDOUTP Repository 07/06/2018 [id number] [facility] ing:MEDOUTP Repository 06/22/2018 [id number] [facility] ing:MEDOUTP Repository 06/08/2018 [id number] [facility] ing:MEDOUTP Repository 05/25/2018 [id number] [facility] Repository 05/11/2018 [id number] [facility] ing:MEDOUTP Repository 04/27/2018 [id number] [facility] ing:MEDOUTP Repository 04/13/2018 [id number] [facility] [place] ing:MEDOUTP Repository 03/30/2018 [id number] [facility] [place] ing:MEDOUTP Repository 03/16/2018 [id number] [facility] [place] ing:MEDOUTP Repository 03/02/2018 [id number] [facility] [place] [facility] ing:MEDOUTP Repository 02/16/2018 [id number] [facility] [place] ing:MEDOUTP Repository 02/02/2018 [id number] [facility] [place] ing:MEDOUTP Repository 01/19/2018 [id number] [facility] [place] ing:MEDOUTP Repository 01/05/2018 [id number] [facility] ing:MEDOUTP Repository 12/30/2017 [id number] [facility] ing:LAB Repository 12/22/2017 [id number] [facility] [place] ing:MEDOUTP Repository 12/08/2017 [id number] [facility] ing:MEDOUTP Repository 11/24/2017 [id number] [facility] ing:MEDOUTP Repository 11/17/2017/11/21/[id number] ing:[facility] oom: 0303Bed: Repository 11/10/2017 [id number] [facility] Repository 10/27/2017 [id number] Ambulatory [place] [facility] ing:MEDOUTP Repository 10/13/[id number] [facility] ing:MEDOUTP Repository 09/29/[id number] [facility] ing:MEDOUTP Repository 09/15/2017 [id number] [facility] ing:MEDOUTP Repository PAYERS PAYERS ENCOUNTER GUARANTOR PAYER SUBSCRIBER SOURCE 08/31/2018 MONY R Primary MONY R [place] [id number] CR Insurance:MEDICARE WICKHAMDOB: [address], [place] A [facility] [id number] Health [facility] [address]Pam: Number: Repository [id number] () Date:2018-08-16 08/31/2018 Secondary MONY R [place] [facility] Number: [id number] Hospital [id number] Repository Date:7948-61-15STAMBS [place], [place] [address]SA: 08/31/2018 Tertiary NOT GIVENUNK [place] Insurance:SELF PAY [facility] Number: Effective Repository Date:2018-08-16 08/16/2018 MONY R Primary MONY R [place] [id number] CR Insurance:MEDICARE WICKHAMDOB: [address], PART A [facility] [id number] Health Care Facility [address]Ojd: Number: Repository [id number] (HP) Date:2018-08-03 08/16/2018 Secondary MONY R [place] Insurance:[facility]: [facility] Number: [id number] Hospital [id number] Repository Date:2113-25-57DMCDLF OF [place] [address]SV: 08/16/2018 Tertiary NOT GIVENUNK [place] Insurance:SELF PAY [facility] Number: Effective Repository Date:2018-08-03 08/03/2018 MONY R Primary MONY R [place] [id number] CR Insurance:MEDICARE WICKHAMDOB: [facility] 175[facility] [id number] Health Care Facility [address]Cwn: Number: Repository [id number] () Date:2018-08-01 08/03/2018 Secondary MONY R [place] Insurance:MUTUAL OF WICKHAMDOB: [facility] Number: [id number] Hospital [id number] Repository Date:2188-62-21NCRTII OF [place] [address]FI: 08/03/2018 Tertiary NOT GIVENUNK [place] Insurance:SELF PAY [facility] Number: Effective Repository Date:2018-08-01 07/20/2018 MONY R Primary MONY R [place] [id number] CR Insurance:MEDICARE WICKHAMDOB: [address], [place] [facility] [id number] Health Care Facility [address]Yxa: Number: Repository [id number] (HP) Date:2018-07-06 07/20/2018 Secondary MONY R [place] Insurance:[facility]UAL [facility] Number: [id number] Hospital [id number] Repository Date:2502-40-97RFNQZP OF [place] [address]RJ: 07/20/2018 Tertiary NOT GIVENUNK [place] Insurance:SELF PAY [facility] Number: Effective Repository Date:2018-07-06 07/06/2018 MONY R Primary MONY R [place] [id number] CR Insurance:MEDICARE WICKHAMDOB: [address], PART A [facility] [id number] Health Care Facility [address]Cxp: Number: Repository [id number] () Date:2018-06-22 07/06/2018 Secondary MONY R [place] Insurance:MUTUAL OF [place]: [facility] Number: [id number] Hospital [id number] Repository Date:2483-59-15UKGDLX OF [place] [address]SQ: 07/06/2018 Tertiary NOT GIVENUNK [place] Insurance:SELF PAY [facility] Number: Effective Repository Date:2018-06-22 06/22/2018 MONY R Primary MONY R [place] [id number] CR Insurance:MEDICARE WICKHAMDOB: [address], PART A [facility] [id number] Health Care Facility [address]Uda: Number: Repository [id number] (HP) Date:2018-06-08 06/22/2018 Secondary MONY R [place] Insurance:MUTUAL OF [facility]: [facility] Number: [id number] Hospital [id number] Repository Date:7434-98-85OBVLNF OF [place] [address]IU: 06/22/2018 Tertiary NOT GIVENUNK [place] Insurance:SELF PAY [facility] Number: Effective Repository Date:2018-06-08 06/08/2018 MONY R Primary MONY R [place] [id number] CR Insurance:MEDICARE WICKHAMDOB: [address], PART A [facility] [id number] Health Care Facility [address]Yge: Number: Repository [id number] (HP) Date:2018-05-25 06/08/2018 Secondary MONY R [place] Insurance:[facility] Number: [id number] Hospital [id number] Repository Date:7432-11-63OTRHOT OF [place] [address]AF: 06/08/2018 Tertiary NOT GIVENUNK [place] Insurance:SELF PAY [facility] Number: Effective Repository Date:2018-05-25 05/25/2018 MONY R Primary MONY R [place] [id number] CR Insurance:MEDICARE WICKHAMDOB: [address], PART A [facility] [id number] Health Care Facility [address]Smd: Number: Repository [id number] (HP) Date:2018-05-11 05/25/2018 Secondary MONY R [place] Insurance:[facility]UTUAL OF [facility]: [facility] Number: [id number] Hospital [id number] Repository Date:4177-05-03RKJXWD OF [place] [address]VI: 05/25/2018 Tertiary NOT GIVENUNK [place] Insurance:SELF PAY [facility] Number: Effective Repository Date:2018-05-11 05/11/2018 MONY R Primary MONY R [place] [id number] CR Insurance:MEDICARE WICKHAMDOB: [address], PART A [facility] [id number] Health Care Facility [address]Aqu: Number: Repository [id number] (HP) Date:2018-04-27 05/11/2018 Secondary MONY R [place] Insurance:[facility]UTUAL OF [facility]: [facility] Number: [id number] Hospital [id number] Repository Date:6520-97-25DXHSGX OF [place] [address]FG: 05/11/2018 Tertiary NOT GIVENUNK [place] Insurance:SELF PAY [facility] Number: Effective Repository Date:2018-04-27 04/27/2018 MONY R Primary MONY R [place] [id number] CR Insurance:MEDICARE WICKHAMDOB: [address], PART A [facility] [id number] Health Care Facility [address]Vfc: Number: Repository [id number] (HP) Date:2018-04-13 04/27/2018 Secondary MONY R [place] Insurance:[facility] Number: [id number] Hospital [id number] Repository Date:6700-82-92CRBELT OF [place] [address]KR: 04/27/2018 Tertiary NOT GIVENUNK [place] Insurance:SELF PAY [facility] Number: Effective Repository Date:2018-04-13 04/13/2018 MONY R Primary MONY R [place] [id number] CR Insurance:MEDICARE WICKHAMDOB: [address], PART A [facility] [id number] Health Care Facility [address]Ngr: Number: Repository [id number] (HP) Date:2018-03-30 04/13/2018 Secondary MONY R [place] Insurance:[facility] Number: [id number] Hospital [id number] Repository Date:5330-97-61PCNMYF OF [place], [place] [address]HY: 04/13/2018 Tertiary NOT GIVENUNK [place] Insurance:SELF PAY [facility] Number: Effective Repository Date:2018-03-30 03/30/2018 MONY R Primary MONY R [place] [id number] CR Insurance:MEDICARE WICKHAMDOB: [address], PART A [facility] [id number] Health Care Facility [address]Vkr: Number: Repository [id number] (HP) Date:2018-03-16 03/30/2018 Secondary MONY R [place] Insurance:MUTUAL [facility]: [facility] Number: [id number] Hospital [id number] Repository Date:1494-37-71OCXLKQ OF [facility], [place] [address]FT: 03/30/2018 Tertiary NOT GIVENUNK [place] Insurance:SELF PAY [facility] Number: Effective Repository Date:2018-03-16 03/16/2018 MONY R Primary MONY R [place] [id number] CR Insurance:MEDICARE WICKHAMDOB: [address], PART A [facility] [id number] Health Care Facility [address]Fll: Number: Repository [id number] (HP) Date:2018-03-02 03/16/2018 Secondary MONY R [place] Insurance:[facility]UAL OF [facility] Number: [id number] Hospital [id number] Repository Date:7909-07-76MLUEPF OF [place] [address]MX: 03/16/2018 Tertiary NOT GIVENUNK [place] Insurance:SELF PAY [facility] Number: Effective Repository Date:2018-03-02 03/02/2018 Mony R Primary Mony R [place] [id number] CR Insurance:MEDICARE WickhamDOB: [address], PART A [facility] [id number] Health Care Facility [address]Byf: Number: Repository [id number] () Date:2018-02-16 03/02/2018 Secondary Mony R [place] [facility] Number: [id number] Hospital [id number] Repository Date:5067-57-16KSAMVX OF [place] [address]BU: 03/02/2018 Tertiary NOT GIVENUNK [place] Insurance:SELF PAY [facility] Number: Effective Repository Date:2018-02-16 02/16/2018 Mony R Primary Mony R [place] [id number] CR Insurance:MEDICARE WickhamDOB: [address], PART A [facility] [id number] Health Care Facility [address]Ohx: Number: Repository [id number] (HP) Date:2018-02-02 02/16/2018 Secondary Mony R [place] Insurance:MUTUAL OF [facility]: [facility] Number: [id number] Hospital [id number] Repository Date:6231-73-86MKOCMB OF [place], [place] [address]BF: 02/16/2018 Tertiary NOT GIVENUNK [place] Insurance:SELF PAY [facility] Number: Effective Repository Date:2018-02-02 02/02/2018 Mony R Primary Mony R [place] [id number] CR Insurance:MEDICARE WickhamDOB: [address], PART A [facility] [id number] Health Care Facility [address]Ong: Number: Repository [id number] () Date:2018-01-19 02/02/2018 Secondary Mony R [place] Insurance:MUTUAL OF [facility] Number: [id number] Hospital [id number] Repository Date:0414-39-49CHQHZJ OF [place], [place] [address]DN: 02/02/2018 Tertiary NOT GIVENUNK [place] Insurance:SELF PAY [facility] Number: Effective Repository Date:2018-01-19 01/19/2018 Mony R Primary Mony R [place] [id number] CR Insurance:MEDICARE [place]OB: [address], [place] [facility] [id number] Health Care Facility [address]Nee: Number: Repository [id number] () Date:2018-01-05 01/19/2018 Secondary Mony R [place] Insurance:MUTUAL OF [facility] HospitalB: [facility] Number: [id number] Hospital [id number] Repository Date:2823-01-51ENBWCK [place], [place] [address]IW: 01/19/2018 Tertiary NOT GIVENUNK [place] Insurance:SELF PAY [facility] Number: Effective Repository Date:2018-01-05 01/05/2018 Mony R Primary Mony R [place] [id number] Cr Insurance:MEDICARE [place]DOB: [address], [place] [facility] [id number] Health Care Facility [address]Dbh: Number: Repository [id number] () Date:2017-12-22 01/05/2018 Secondary Mony R [place] Insurance:MUTUAL OF [facility] hospitalD[facility]: [facility] Number: [id number] Hospital [id number] Repository Date:4145-27-68QOSNSJ OF [place] [address]DZ: 01/05/2018 Tertiary NOT GIVENUNK [place] Insurance:SELF PAY [facility] Number: Effective Repository Date:2017-12-22 12/30/2017 Mony R Primary Mony R [place] [id number] Cr Insurance:MEDICARE [place]DOB: [place] [address], [place] [facility] [id number] Health Care Facility [address]Tyn: Number: Repository [id number] (HP) Date:2017-12-30 12/30/2017 Secondary Mony R [place] Insurance:MUTUAL OF [place]OB: [facility] Number: [id number] Hospital [id number] Repository Date:7829-20-40WKKBPK OF [place], [place] [address]EF: 12/30/2017 Tertiary NOT GIVENUNK [place] Insurance:SELF PAY [facility] Number: Effective Repository Date:2017-12-30 12/22/2017 Mony R Primary Mony R [place] [id number] Cr Insurance:MEDICARE [place]DOB: [address], [place] [facility] [id number] Health Care Facility [address]Kku: Number: Repository [id number] (HP) Date:2017-12-08 12/22/2017 Secondary Mony R [place] Insurance:MUTUAL OF [place]OB: [facility] Number: [id number] Hospital [id number] Repository Date:5197-16-59WYLHYN OF [place], [place] [address]CO: 12/22/2017 Tertiary NOT GIVENUNK [place] Insurance:SELF PAY [facility] Number: Effective Repository Date:2017-12-08 12/08/2017 Mony R Primary Mony R [place] [id number] Cr Insurance:MEDICARE [place]DOB: [address], [place] [facility] [id number] Health Care Facility [address]Ntr: Number: Repository [id number] (HP) Date:2017-11-24 12/08/2017 Secondary Mony R [place] Insurance[facility]UAL OF [facility] Number: [id number] Hospital [id number] Repository Date:9846-43-91XPPEHT OF [place] [address]SL: 12/08/2017 Tertiary NOT GIVENUNK [place] Insurance:SELF PAY [facility] Number: Effective Repository Date:2017-11-24 11/24/2017 Mony R Primary Mony R [place] [id number] Cr Insurance:MEDICARE [facility] HospitalB: [address], [place] [facility] [id number] Health Care Facility [address]Ydm: Number: Repository [id number] () Date:2017-11-10 11/24/2017 Secondary Mony R [place] Insurance:MUTUAL OF [facility] HospitalB: [facility] Number: [id number] Hospital [id number] Repository Date:9466-85-32IGVFQT [place] [address]EX: 11/24/2017 Tertiary NOT GIVENUNK [place] Insurance:SELF PAY [facility] Number: Effective Repository Date:2017-11-10 11/17/2017 MONY R Primary MONY R Scientologist [facility]: [facility] icy Number: Effective [id number] Date:2017-11-17 [facility] Repository [address] [place] [address] 5325-20-25Cvbw[address] Name:CD:[id number] [facility] [id number]: [id number] [address]Adm: [id number]: [phone] (HP) [phone] (HP) (WP) 11/17/2017 Secondary MONY R Scientologist Insurance:MUTUAL OF [facility]: [facility] Number: [id number] System Effective [address] Repository Date:2017-11-[address] [place] [address], 0531-26-91[place]tuk [place] Name:CD:[id number]: [place], [place] [address]ET: [phone] ([phone] (WP) 11/10/2017 Mony R Primary Mony R [place] [id number] Cr Insurance:MEDICARE [facility] HospitalB: [address], [place] [facility] [id number] Health Care Facility [address]Osz: Number: Repository [id number] (HP) Date:2017-10-27 11/10/2017 Secondary Mony R [place] Insurance:MUTUAL [facility]: [facility] Number: [id number] Hospital [id number] Repository Date:1167-14-26EGPXNR OF [place] [address]LS: 11/10/2017 Tertiary NOT GIVENUNK [place] Insurance:SELF PAY [facility] Number: Effective Repository Date:2017-10-27 10/27/2017 Mony R Primary Mony R [place] [id number] Cr Insurance:MEDICARE WiTem[facility] HospitalB: [address], [place] [facility] [id number] Health Care Facility [address]Rpd: Number: Repository [id number] (HP) Date:2017-10-13 10/27/2017 Secondary Mony R [place] Insurance:MUTUAL [facility]: [facility] Number: [id number] Hospital [id number] Repository Date:9870-29-41LBUETR [place] [address]UC: 10/27/2017 Tertiary NOT GIVENUNK [place] Insurance:SELF PAY [facility] Number: Effective Repository Date:2017-10-13 10/13/2017 Mony R Primary Mony R [place] [id number] Cr Insurance:MEDICARE [place]DOB: [address], [place] [facility] [id number] Health Care Facility [address]Rgv: Number: Repository [id number] (HP) Date:2017-09-29 10/13/2017 Secondary Mony R [place] Insurance:MUTUAL OF [facility]DOB: [facility] Number: [id number] Hospital [id number] Repository Date:8965-24-60OSUTNU OF [place] [address]AD: 10/13/2017 Tertiary NOT GIVENUNK [place] Insurance:SELF PAY [facility] Number: Effective Repository Date:2017-09-29 09/29/2017 Mony R Primary Mony R [place] [id number] Cr Insurance:MEDICARE Wickbryn mawr rehabilitation hospitalDOB: [address], [place] [facility] [id number] Health Care Facility [address]Ydi: Number: Repository [id number] (HP) Date:2017-09-15 09/29/2017 Secondary Mony R [place] Insurance:MUTUAL OF [facility] HealthD[facility]: [facility] Number: [id number] Hospital [id number] Repository Date:4037-64-27DIGJKZ OF [place] [address]GY: 09/29/2017 Tertiary NOT GIVENUNK [place] Insurance:SELF PAY [facility] Number: Effective Repository Date:2017-09-15 09/15/2017 Mony R Primary Mony R [place] [id number] Cr Insurance:MEDICARE [place]DOB: [address], [place] [facility] [id number] Health Care Facility [address]Zfa: Number: Repository [id number] (HP) Date:2017-09-01 09/15/2017 Secondary Mony R [place] Insurance:MUTUAL OF Wickbryn mawr rehabilitation hospitalDOB: [facility] Number: [id number] Hospital [id number] Repository Date:7153-99-15WUNUDW OF [place] [address]QA: 09/15/2017 Tertiary NOT GIVENUNK [place] Insurance:SELF PAY [facility] Number: Effective Repository Date:2017-09-01
== END ==
PROVIDERS: Referring Provider Internal Medicine Nephrology; Visit Provider Internal Medicine Nephrology
DX: N18.4 Chronic kidney disease, stage 4 (severe) (principal); D63.1 Anemia in chronic kidney disease
CPT/HCPCS: 36415; 80069; 85025; 96372; J0885

== ENCOUNTER → 2018-08-31 11:15 | Outpatient (CLI) | payer MEDICARE, OTHER, SELFPAY ==
[2018-08-16 12:05] VITALS: BMI 42.7
[2018-08-31 11:34] LABS: Hematocrit 33.7 % (37-47); Hemoglobin 10.3 g/dl (12.0-15.0)
[2018-08-31 12:13] VITALS: BP 146/50; PULSE 58; RESP 16; TEMP 36.4; O2SAT 97; BMI 42.7
--- OUTSIDE RECORDS SUMMARY | 2018-10-17 04:01 | XMS RPT_ITS ---
:1940 Author Organization [place] Support Name Relationship Address Phone REGGIE RYAN SLEEK FUNER Unavailable [address] [facility] + [place] [address] BETTE THOMASYL Unavailable [address] + [place] [address] REGGIE DOYLEHAM SLEEK FUNER Unavailable [address] [facility] + [place] [address] BETTE THOMASYL Unavailable [address] + [place] [address] REGGIE YANIRAHAM SLEEK FUNER Unavailable [address] [facility] + [place] [address] BETTE THOMASYL Unavailable [address] + [place] [address] REGGIE BRADHAM SLEEK FUNER Unavailable [address] + [place] [address] MARTHA JANINE Unavailable [address] + [place] [address] REGGIE YANIRAHAM SLEEK FUNER Unavailable [address] [facility] + [place] [address] BETTE THOMASYL Unavailable [address] + [place] [address] REGGIE BRADHAM SLEEK FUNER Unavailable [address] + [place] [address] MARTHA JANINE Unavailable [address] + [place] [address] REGGIE BRADHAM SLEEK FUNER Unavailable [address] [facility] + [place] [address] YOUNG, JANINE Unavailable [address] + [place] [address] REGGIE BRADHAM SLEEK FUNER Unavailable [address] [facility] + [place] [address] YOUNG, JANINE Unavailable [address] + [place] [address] REGGIE BRADHAM SLEEK FUNER Unavailable [address] [facility] + [place] [address] YOUNG, JANINE Unavailable [address] + [place] [address] REGGIE BRADHAM SLEEK FUNER Unavailable [address] [facility] + [place] [address] YOUNG, JANINE Unavailable [address] + [place] [address] REGGIE BRADHAM SLEEK FUNER Unavailable [address] [facility] + [place] [address] YOUNG, JANINE Unavailable [address] + [place] [address] REGGIE BRADHAM SLEEK FUNER Unavailable [address] [facility] + [place] [address] YOUNG, JANINE Unavailable [address] + [place] [address] REGGIE BRADHAM SLEEK FUNER Unavailable [address] [facility] + [place] [address] YOUNG, JANINE Unavailable [address] + [place] [address] REGGIE BRADHAM SLEEK FUNER Unavailable [address] [facility] + [place] [address] YOUNG, NICHOLAS Unavailable [address] + [place] [address] REGGIE BRADHAM SLEEK FUNER Unavailable [address] [facility] + [place] [address] YOUNG, NICHOLAS Unavailable [address] + [place] [address] REGGIE BRADHAM SLEEK FUNER Unavailable [address] [place] [address] + [place] [address] MARTHA NICHOLAS Unavailable [address] + [place] [address] REGGIE BRADHAM SLEEK FUNER Unavailable [address] [facility] + [place] [address] MARTHA NICHOLAS Unavailable [address] + [place] [address] REGGIE BRADHAM SLEEK FUNER Unavailable [address] [facility] + [place] [address] YOUNG NICHOLAS Unavailable [address] + [place] [address] REGGIE BRADHAM SLEEK FUNER Unavailable [address] [facility] + [place] [address] MARTHA NICHOLAS Unavailable [address] + [place] [address] REGGIE BRADHAM SLEEK FUNER Unavailable [address] [facility] + [place] [address] MARTHA NICHOLAS Unavailable [address] + [place] [address] REGGIE BRADHAM SLEEK FUNER Unavailable [address] [facility] + [place] [address] MARTHA NICHOLAS Unavailable [address] + [place] [address] REGGIE BRADHAM SLEEK FUNER Unavailable [address] [facility] + [place] [address] MARTHA NICHOLAS Unavailable [address] + [place] [address] REGGIE BRADHAM SLEEK FUNER Unavailable [address] [facility] + [place] [address] YOUNG NICHOLAS Unavailable [address] + [place] [address] REGGIE BRADHAM SLEEK FUNER Unavailable [address] [facility] + [place] [address] MARTHA NICHOLAS Unavailable [address] + [place] [address] REGGIE BRADHAM SLEEK FUNER Unavailable [address] [facility] + [place] [address] BETTE THOMASRYL Unavailable [address] + [place] [address] REGGIERUTH RYAN SLEEK FUNER Unavailable [address] [facility] + [place] [address] MARTHA NICHOLAS Unavailable [address] + [place] [address] REGGIERUTH RYAN SLEEK FUNER Unavailable [address] [facility] + [place] [address] MARTHA NICHOLAS Unavailable [address] + [place] [address] REGGIERUTH RYAN SLEEK FUNER Unavailable [address] [facility] + [place] [address] BETTE THOMASRYL Unavailable [address] + [place] [address] Care Team Providers Name Role Phone Sly Pedersen Primary Care Unavailable Sushil Odonnell Admitting Unavailable Sushil Odonnell Attending Unavailable Jefry Navarrete Admitting Unavailable Jefry Navarrete Attending Unavailable Sly Pedersen Primary Care Unavailable Megans, Dariniz Attending Unavailable Trevon, Aziz Referring Unavailable Sly Pedersen Primary Care Unavailable Darin Hajiiz Attending Unavailable Trevon, Aziz Referring Unavailable Sly Pedersen Primary Care Unavailable Tanphaichitr, Natthavat Attending Unavailable Sly Pedersen Primary Care Unavailable Tanphaichitr, Natthavat Referring Unavailable Akhilphaichitr, Natthavat Attending Unavailable Sly Pedersen Primary Care Unavailable Aziza Haji Attending Unavailable Trevon, Aziz Referring Unavailable Sly Pedersen Primary Care Unavailable Sly Pedersen Attending Unavailable Sly Pedersen Referring Unavailable Sly Pedersen Primary Care Unavailable Tanphaichitr, Natthavat Attending Unavailable Tanphaichitr, Natthavat Referring Unavailable Sly Pedersen Primary Care Unavailable Tanphaichitr, Natthavat Attending Unavailable Tanphaichitr, Natthavat Referring Unavailable Sly Pedersne Primary Care Unavailable Tanphaichitr, Natthavat Attending Unavailable Tanphaichitr, Natthavat Referring Unavailable Sly Pedersen Primary Care Unavailable Tanphaichitr, Natthavat Attending Unavailable Tanphaichitr, Natthavat Referring Unavailable Sly Pedersen Primary Care Unavailable ZEV PEPE Attending Unavailable ZEV PEPE Referring Unavailable Pedersen Sly Primary Care Unavailable Tanphaichitr, Natthavat Attending Unavailable Tanphaichitr, Natthavat Referring Unavailable Pedersen Sly Primary Care Unavailable Tanphaichitr, Natthavat Attending Unavailable Tanphaichitr, Natthavat Referring Unavailable Pedersen Sly Primary Care Unavailable Tanphaichitr, Natthavat Attending Unavailable Tanphaichitr, Natthavat Referring Unavailable Pedersen Sly Primary Care Unavailable Tanphaichitr, Natthavat Attending Unavailable Tanphaichitr, Natthavat Referring Unavailable Pedersen Sly Primary Care Unavailable Tanphaichitr, Natthavat Attending Unavailable Tanphaichitr, Natthavat Referring [facility] Unavailable Bakhous, Dariniz Attending Unavailable Bakhous, Aziz Referring Unavailable Pedersen Sly Primary Care Unavailable Bakhous, Aziz Attending Unavailable Bakhous, Aziz Referring Unavailable [facility] Unavailable Aly, Jayaprakash Attending Unavailable Aly, Jayaprakash Referring Unavailable [facility] Unavailable Aly, Jayaprakash Attending Unavailable Aly, Jayaprakash Referring Unavailable Pedersen Sly Primary Care Unavailable Aly, Jayaprakash Attending Unavailable Aly, Jayaprakash Referring Unavailable [facility] Unavailable Bakhous, Aziz Attending Unavailable Bakhous, Aziz Referring Unavailable Pedersen Sly Primary Care Unavailable Aly, Jayaprakash Consulting Unavailable Aly, Jayaprakash Attending Unavailable Aly, Jayaprakash Referring Unavailable Pedersen Sly Primary Care Unavailable Bakhous, Aziz Attending Unavailable Bakhous, Aziz Referring Unavailable Pedersen Sly Primary Care Unavailable Aly, Jayaprakash Attending Unavailable Aly, Jayaprakash Referring Unavailable [facility] Unavailable Bakhous, Aziz Attending Unavailable Bakhous, Aziz Referring Unavailable [facility] Primary Care Unavailable Aly, Jayaprakash Consulting Unavailable Bakhous, Aziz Attending Unavailable Bakhous, Aziz Referring Unavailable [facility] Unavailable Bakhous, Aziz Attending Unavailable Bakhous, Aziz Referring Unavailable [facility] Primary Care Unavailable PROBLEMS PROBLEMS DATE TYPE CONDITION / CODE ATTENDING STATUS SOURCE Unknown E11.65 - Type 2 diabetes Trevon [facility] Eda mellitus with Community hyperglycemia / Hospital E11.65(ICD-10) Repository Unknown D64.9 - Anemia, Aziza Haji 8 unspecified / Community D64.9(ICD-10) Hospital Repository Unknown D63.1 - Anemia in Aziza Haji 8 chronic kidney disease / Community D63.1(ICD-10) Hospital Repository Unknown N18.4 - Chronic kidney Trevon [facility] 8 disease, stage 4 Community (severe) / N18.4(ICD-10) Hospital Repository Unknown 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 / Hospital N25.81(ICD-10) Repository Unknown E78.2 - Mixed ZEV PEPE [facility] 8 hyperlipidemia / Community E78.2(ICD-10) Hospital Repository Unknown I10 - Essential ZEV PEPE Active [place] 8 (primary) hypertension / Community I10(ICD-10) Hospital Repository PROCEDURES PROCEDURES No Procedure Records FoundRESULTS RESULTS NCS AND/OR EMG Observed: 10/10/2018 Status: F Source: [place] PATIENT 9:55 AM [facility] REPOSITORY [facility] Pulmonary Services/Neurology [address] [place] [address] MR#: [id number] Acct: [id number] Name: MONY WORLEY Rep #: [id number] : 1940 78 From: Jaime Prieto MD Referring Dr: Sly Pedersen MD Status: REG CLI Ordering Dr: Date: Location: [facility] Sex: F C NCS and/or EMG Patient Report Ordering Doctor: Sly Pedersen DATE OF SERVICE: 10/09/18 This is a bilateral upper extremity nerve conduction study performed on this 78-year-old female with a history of numbness tingling burning and pain in her hands bilaterally worse on the left. The patient is right-handed. Symptoms been present for 6 months. Bilateral upper extremity sensory and motor nerve conduction studies are performed. The median motor and sensory responses are abnormal. The motor distal latencies are severely prolonged more so on the right side, the right side also demonstrates severe diminished amplitudes and conduction velocities. To a lesser extent the amplitudes and conduction velocities are diminished on the left side. The sensory responses from the median sensory nerves are absent bilaterally. Ulnar motor and sensory and radial sensory responses are normal. Median F waves are prolonged. EMG testing was deferred due to classic elective physiologic findings. Impression: Abnormal nerve conduction study of the bilateral upper extremities consistent with severe carpal tunnel syndrome bilaterally, electrically somewhat worse on the right side. 10/10/18 0955 <Electronically signed by Jaime Prieto MD> Date Jaime Prieto MD CC: Sly Pedersen MD; Jaime Prieto MD Date Dictated: 10/09/18 1014 Date Transcribed: 10/09/181013 Playground Worker: NF Signed HH, HEMOGLOBIN AND Collected: 09/28/2018 Status: F Source: [place] HEMATOCRIT 11:43 AM [facility] REPOSITORY TYPE CODE TESTS RESULT OUT OF RANGE REFERENCE UNITS LAB L100.1300 12.0-15.0 g/dl Low HGB 10.3 LAB L100.1400 37-47 % Low HCT 32.8 Performed By: #### L100.0600 #### [facility] [address] [place], [address] CBC-COMPLETE BLOOD CNT Collected: 09/14/2018 Status: F Source: [place] NO DIFF 11:26 AM [facility] REPOSITORY Order Comment: DR HAJI ORDERED RENAL CBC DR PEPE ORDERED A1C LIPID CMP TYPE CODE TESTS RESULT OUT OF RANGE REFERENCE UNITS LAB L100.1000 4.4-11.0 K/mm3 Normal WBC 7.1 LAB L100.1200 4.2-5.4 M/mm3 Low RBC 3.36 LAB L100.1300 12.0-15.0 g/dl Low HGB 10.5 LAB L100.1400 37-47 % Low HCT 33.9 LAB L100.1500 81-99 fL High MCV 100.9 LAB L100.1600 27.0-32.0 pg Normal MCH 31.3 LAB L100.1700 32-36 g/gl Low MCHC 31.0 LAB L100.1810 11.6-14.6 % Normal RDW CV 13.8 LAB L100.1820 35.1-43.9 fl High RDW SD 50.8 LAB L100.1900 150-450 K/mm3 Normal PLT 245 LAB L100.2000 6.2-12.0 fl Normal MPV 10.2 Performed By: #### L100.0500 #### [facility] [place], [address] COMPREHENSIVE METABOLIC Collected: 09/14/2018 Status: F Source: [place] PROFIL 11:26 AM [facility] REPOSITORY Order Comment: DR HAJI ORDERED RENAL CBC DR PEPE ORDERED A1C LIPID CMP TYPE CODE TESTS RESULT OUT OF RANGE REFERENCE UNITS LAB L501.0100 74-106 mg/dL High GLU 107 Result Comment: Fasting Glucose result from 100 to 125 mg/dL suggests IMPAIRED HOMEOSTASIS per A.D.A. criteria. Please note revised GLUCOSE reference range effective 2017. LAB L501.1000 7-18 mg/dL High BUN 81 LAB L501.1100 0.55-1.02 mg/dL High CREAT,SERUM 2.70 Result Comment: The validity of the calculated GFR AND GFRAA in patients over 70 years has not been determined. Clinical correlation is essential. LAB L501.1110 >60 mL/min Low EST GFR 18 Result Comment: Non- GFR Calc LAB L501.1115 >60 mL/min Low EST GFR - AA 22 Result Comment: GFR Calc LAB L501.1255 ml/min Normal Estimated CRCL 16.08 LAB L501.1300 10-20 RATIO High BUN/CRE 30.0 LAB L501.1500 6.4-8. g/dL Normal 2 T PROT 6.9 LAB L501.1800 3.2-5. g/dL Normal 0 ALB 3.4 LAB L501.1950 2.2-4. g/dL Normal 2 GLOB 3.5 LAB L501.2000 0.9-2. RATIO Normal 4 A/G 1.0 LAB L501.2200 8.5-10 mg/dL Normal .1 CA 9.2 LAB L501.4100 15-37 U/L Low AST 14 LAB L501.4305 45-117 U/L Normal ALK P 95 LAB L501.4405 13-56 U/L Normal ALT 23 LAB L501.4600 0.20-1 mg/dL Normal .00 T BILI 0.40 LAB L501.5300 136-14 mmol/L Normal 5 NA 144 LAB L501.5600 3.5-5. mmol/L Normal 1 K 4.0 LAB L501.5900 98-107 mmol/L High CL 110 LAB L501.6100 21.0-3 mmol/L Normal 2.0 CO2 22.0 LAB L501.6200 5-15 Normal GAP 12 Performed By: #### L500.4050, L500.4100, L501.2300 #### [facility] [address] [place], [place], [id number] LIPID PROFILE Collected: 09/14/2018 Status: F Source: [place] 11:26 AM [facility] REPOSITORY Order Comment: DR HAJI ORDERED RENAL CBC DR PEPE ORDERED A1C LIPID CMP TYPE CODE TESTS RESULT OUT OF RANGE REFERENCE UNITS LAB L501.4900 200 mg/dL Normal CHOL 133 Result Comment: <200 mg/dL Desirable 200-240 mg/dL Borderline >240 mg/dL High Risk LAB L501.5000 mg/dL Normal TRIG 84 Result Comment: The drugs N-Acetylcysteine and Metamizole may falsely depress this assay. Serum Triglycerides Reference Interval Normal <150 mg/dL Borderline high 150 - 199 mg/dL High 200 - 499 mg/dL Very High > or = 500 mg/dL LAB L501.6400 mg/dL Normal HDL 55 Result Comment: The drugs N-Acetylcysteine and Metamizole may falsely depress this assay. Reference Range HDL <40 mg/dL Low HDL Cholesterol HDL >or= 60 mg/dL High HDL Cholesterol LAB L501.6500 0-130 mg/dL Normal LDL 61 LAB L501.6600 5-40 mg/dL Normal VLDL 17 Performed By: #### L500.4050, L500.4100, L501.2300 #### [facility] [address] [place], [place], [id number] PHOSPHORUS Collected: 09/14/2018 Status: F Source: [place] 11:26 AM [facility] REPOSITORY Order Comment: DR HAJI ORDERED RENAL CBC DR PEPE ORDERED A1C LIPID CMP TYPE CODE TESTS RESULT OUT OF RANGE REFERENCE UNITS LAB L501.2300 2.5-4.9 mg/dL Normal PHOS 3.6 Performed By: #### L500.4050, L500.4100, L501.2300 #### [facility] [address] [place], [address] HEMOGLOBIN A1C Collected: 09/14/2018 Status: F Source: [place] 11:26 AM [facility] REPOSITORY Order Comment: DR HAJI ORDERED RENAL CBC DR PEPE ORDERED A1C LIPID CMP TYPE CODE TESTS RESULT OUT OF RANGE REFERENCE UNITS LAB L501.9985 4.2-6.3 % Normal HGB A1C 6.3 Performed By: #### L501.9985 #### [facility] [address] [place], [address] HH, HEMOGLOBIN AND Collected: 08/31/2018 Status: F Source: [place] HEMATOCRIT 11:18 AM [facility] REPOSITORY TYPE CODE TESTS RESULT OUT OF RANGE REFERENCE UNITS LAB L100.1300 12.0-15.0 g/dl Low HGB 10.3 LAB L100.1400 37-47 % Low HCT 33.7 Performed By: #### L100.0600 #### [facility] [address] [place], [address] CBC W/DIFF, AUTOMATED Collected: 08/16/2018 Status: F Source: [place] 11:38 AM [facility] REPOSITORY TYPE CODE TESTS RESULT OUT [...] Lymph 1.39 Performed By: #### L100.0100 #### [facility] [address] [place], [place], [id number] RENAL PROFILE Collected: 08/16/2018 Status: F Source: [place] 11:38 AM [facility] REPOSITORY TYPE CODE TESTS RESULT OUT [...] CO2 27.0 Performed By: #### L500.3600 #### [facility] [address] [place], [place], [address] HH, HEMOGLOBIN AND Collected: 08/03/2018 Status: F Source: [place] HEMATOCRIT 11:20 AM [facility] REPOSITORY TYPE CODE TESTS RESULT OUT OF RANGE REFERENCE UNITS LAB L100.1300 12.0-15.0 g/dl Low HGB 10.2 LAB L100.1400 37-47 % Low HCT 33.6 Performed By: #### L100.0600 #### [facility] [address] [place], [place], [address] CBC-COMPLETE BLOOD CNT Collected: 07/20/2018 Status: F Source: [place] NO DIFF 11:20 AM [facility] REPOSITORY TYPE CODE TESTS RESULT OUT [...] MPV 10.4 Performed By: #### L100.0500 #### [facility] [address] [place], [address] URINALYSIS, ROUTINE Collected: 07/20/2018 Status: F Source: [place] (DIPSTICK) 11:20 AM [facility] REPOSITORY Order Comment: How was Urine Obtained? [...] ESTERASE Negative Performed By: #### L400.2010 #### [facility] [address] [place], [place], [address] RENAL PROFILE Collected: 07/20/2018 Status: F Source: [place] 11:20 AM [facility] REPOSITORY TYPE CODE TESTS RESULT OUT [...] CO2 24.0 Performed By: #### L500.3600 #### [facility] [address] [place], [address] PTHIN Collected: 07/20/2018 Status: F Source: [place] 11:20 AM [facility] REPOSITORY TYPE CODE TESTS RESULT OUT OF RANGE REFERENCE UNITS LAB L509.1000 18.4-80.1 pg/mL High PTHIN 185.0 Performed By: #### L509.1000 #### [facility] [address] [facility] [place], [place], [address] VITAMIN D,25 HYDROXY Collected: 07/20/2018 Status: F Source: [place] 11:20 AM [facility] REPOSITORY TYPE CODE TESTS RESULT OUT OF REFERENCE UNITS RANGE LAB L506.1000 29.95-100.01 ng/mL Low Vitamin D 15.9 25-OH Result Comment: Vitamin D 25(OH) Status Range Deficiency <20 ng/mL (50nmol/L) Insuffciency 20 - 30 ng/mL (50 - 75 nmol/L) Sufficiency 30 - 100 ng/mL (75 - 250 nmol/L) Toxicity >100 ng/mL (>250 nmol/L) Performed By: #### L506.1000 #### [facility] [address] [place], [place], [address] PROTEIN+CREATININE Collected: Status: F Source: [place] MEDINA,URINE 07/20/2018 11:20 AM [facility] REPOSITORY TYPE CODE TESTS RESULT OUT OF RANGE REFERENCE UNITS LAB L501.1200 NO RANGE EST. mg/dL 40.40 Normal UR CREAT LAB L501.1930 <11.9 mg/dL < 6.0 Normal PROTEIN,UR. RAN. LAB L501.1940 0-200 mg/g CRE Test Normal not performed PROT:CRE RATIO Performed By: #### L501.0900, L502.0250 #### [facility] [address] [place], [address] MICROALB:CREAT Collected: 07/20/2018 Status: F Source: [place] MEDINA,RANDOM UR 11:20 AM [facility] REPOSITORY TYPE CODE TESTS RESULT OUT OF RANGE REFERENCE UNITS LAB L502.0500 NO RANGE EST. mg/L Normal 6.2 MICROALBUMIN ,UR LAB L502.0600 <30 mg/g CRE mg/g CRE Normal 15.4 MALB:CREAT Performed By: #### L501.0900, L502.0250 #### [facility] [address] [place], [address] HH, HEMOGLOBIN AND Collected: 07/06/2018 Status: F Source: [place] HEMATOCRIT 7:48 AM [facility] REPOSITORY TYPE CODE TESTS RESULT OUT OF RANGE REFERENCE UNITS LAB L100.1300 12.0-15.0 g/dl Low HGB 9.8 LAB L100.1400 37-47 % Low HCT 31.7 Performed By: #### L100.0600 #### [facility] [address] [place], [address] CBC-COMPLETE BLOOD CNT Collected: 06/22/2018 Status: F Source: [place] NO DIFF 11:21 AM [facility] REPOSITORY TYPE CODE TESTS RESULT OUT [...] MPV 9.6 Performed By: #### L100.0500 #### [facility] [address] [place], [place], [address] RENAL PROFILE Collected: 06/22/2018 Status: F Source: [place] 11:21 AM [facility] REPOSITORY TYPE CODE TESTS RESULT OUT [...] CO2 26.0 Performed By: #### L500.3600 #### [facility] [address] [place], [address] HH, HEMOGLOBIN AND Collected: 06/08/2018 Status: F Source: [place] HEMATOCRIT 11:45 AM [facility] REPOSITORY TYPE CODE TESTS RESULT OUT OF RANGE REFERENCE UNITS LAB L100.1300 12.0-15.0 g/dl Low HGB 9.8 LAB L100.1400 37-47 % Low HCT 31.3 Performed By: #### L100.0600 #### [facility] [address] [place], [address] HEMOGLOBIN A1C Collected: 06/08/2018 Status: F Source: [place] 11:45 AM [facility] REPOSITORY Order Comment: Comments: DR. PEPE FAX [phone] TYPE CODE TESTS RESULT OUT OF RANGE REFERENCE UNITS LAB L501.9985 4.2-6.3 % High HGB A1C 6.4 Performed By: #### L501.9985 #### [facility] [address] [facility] [place], [address] BASIC METABOLIC Collected: 06/08/2018 Status: F Source: [place] PROFILE (BMP) 11:45 AM [facility] REPOSITORY Order Comment: Comments: DR. PEPE FAX [phone] Comments: DR. PEPE FAX [phone] TYPE CODE TESTS RESULT OUT OF RANGE [...] Performed By: #### L500.2500, L501.9520, L506.0400 #### [facility] [address] [place], [place], [id number] THYROID STIM HORMONE Collected: 06/08/2018 Status: F Source: [place] (TSH) 11:45 AM [facility] REPOSITORY Order Comment: Comments: DR. PEPE FAX [phone] Comments: DR. PEPE FAX [phone] TYPE CODE TESTS RESULT OUT OF RANGE REFERENCE UNITS LAB L501.9520 0.358-3.74 uIU/mL Normal TSH 0.93 Performed By: #### L500.2500, L501.9520, L506.0400 #### [facility] [address] [place], [place], [id number] T4 FREE DIRECT Collected: 06/08/2018 Status: F Source: [place] 11:45 AM [facility] REPOSITORY Order Comment: Comments: DR. PEPE FAX [phone] Comments: DR. PEPE FAX [phone] TYPE CODE TESTS RESULT OUT OF RANGE REFERENCE UNITS LAB L506.0400 0.76-1.46 ng/dL Normal T4 FREE 1.04 DIRECT Performed By: #### L500.2500, L501.9520, L506.0400 #### [facility] [address] [place], [place], [address] CBC-COMPLETE BLOOD CNT Collected: 05/25/2018 Status: F Source: [place] NO DIFF 11:20 AM [facility] REPOSITORY TYPE CODE TESTS RESULT OUT [...] MPV 10.1 Performed By: #### L100.0500 #### [facility] [address] [place], [address] RENAL PROFILE Collected: 05/25/2018 Status: F Source: [place] 11:20 AM [facility] REPOSITORY Order Comment: PLEASE ADD FE GIGI [...] By: #### L500.3600, L503.6075, L503.6150, L503.6550 #### [facility] [address] [facility] [facility] [address] IRON BINDING Collected: 05/25/2018 Status: F Source: [facility] 11:20 AM [facility] REPOSITORY Order Comment: PLEASE ADD FE GIGI TIBC TO BLOOD FROM EARLIER TODAY TYPE CODE TESTS RESULT OUT OF RANGE REFERENCE UNITS LAB L503.6075 250-450 ug/dL Normal TIBC 267 Performed By: #### L500.3600, L503.6075, L503.6150, L503.6550 #### [facility] [address] [facility] [facility] [id number] IRON Collected: 05/25/2018 Status: F Source: [place] 11:20 AM [facility] REPOSITORY Order Comment: PLEASE ADD FE GIGI TIBC TO BLOOD FROM EARLIER TODAY TYPE CODE TESTS RESULT OUT OF RANGE REFERENCE UNITS LAB L503.6150 50-170 ug/dL Normal IRON 88 Performed By: #### L500.3600, L503.6075, L503.6150, L503.6550 #### [facility] [address] [facility] [place], [address] FERRITIN Collected: 05/25/2018 Status: F Source: [place] 11:20 AM [facility] REPOSITORY Order Comment: PLEASE ADD FE GIGI TIBC TO BLOOD FROM EARLIER TODAY TYPE CODE TESTS RESULT OUT OF RANGE REFERENCE UNITS LAB L503.6550 8-252 ng/mL Normal FERRITIN 118 Performed By: #### L500.3600, L503.6075, L503.6150, L503.6550 #### [facility] [address] [place], [address] VITAMIN D,25 HYDROXY Collected: 05/25/2018 Status: F Source: [place] 11:20 AM [facility] REPOSITORY TYPE CODE TESTS RESULT OUT OF REFERENCE UNITS RANGE LAB L506.1000 29.95-100.01 ng/mL Low Vitamin D 13.8 25-OH Result Comment: Vitamin D 25(OH) Status Range Deficiency <20 ng/mL (50nmol/L) Insuffciency 20 - 30 ng/mL (50 - 75 nmol/L) Sufficiency 30 - 100 ng/mL (75 - 250 nmol/L) Toxicity >100 ng/mL (>250 nmol/L) Performed By: #### L506.1000 #### [facility] [address] [facility] [place], [address] PTHIN Collected: 05/25/2018 Status: F Source: [place] 11:20 AM [facility] REPOSITORY TYPE CODE TESTS RESULT OUT OF RANGE REFERENCE UNITS LAB L509.1000 18.4-80.1 pg/mL Normal PTHIN 25.6 Performed By: #### L509.1000 #### [facility] [address] [facility] [place], [address] URINALYSIS, ROUTINE Collected: 05/25/2018 Status: F Source: [place] (DIPSTICK) 11:20 AM [facility] REPOSITORY Order Comment: How was Urine Obtained? [...] 25 ESTERASE Performed By: #### L400.2010 #### [facility] [address] [facility] [place], [address] PROTEIN+CREATININE Collected: Status: F Source: [place] RATIO,URINE 05/25/2018 11:20 AM [facility] REPOSITORY TYPE CODE TESTS RESULT OUT OF RANGE REFERENCE UNITS LAB L501.1200 NO RANGE EST. mg/dL Normal UR CREAT 58.70 LAB L501.1930 <11.9 mg/dL Normal < 6.0 PROTEIN,UR.R AN. LAB L501.1940 0-200 mg/g CRE Normal PROT:CRE 99 RATIO Performed By: #### L501.0900, L502.0500 #### [facility] [address] [place], [address] MICROALBUMIN,RANDOM URINE Collected: Status: F Source: [place] 05/25/2018 11:20 AM [facility] REPOSITORY TYPE CODE TESTS RESULT OUT OF RANGE REFERENCE UNITS LAB L502.0500 NO RANGE EST. mg/L Normal 6.5 MICROALBUMIN ,UR Performed By: #### L501.0900, L502.0500 #### [facility] [address] [place], [address] HH, HEMOGLOBIN AND Collected: 05/11/2018 Status: F Source: [place] HEMATOCRIT 8:25 AM [facility] REPOSITORY TYPE CODE TESTS RESULT OUT OF RANGE REFERENCE UNITS LAB L100.1300 12.0-15.0 g/dl Low HGB 10.4 LAB L100.1400 37-47 % Low HCT 32.1 Performed By: #### L100.0600 #### [facility] [address] [place], [address] RENAL PROFILE Collected: 05/11/2018 Status: F Source: [place] 8:25 AM [facility] REPOSITORY TYPE CODE TESTS RESULT OUT [...] CO2 23.0 Performed By: #### L500.3600 #### [facility] [address] [place], [address] CBC W/DIFF, AUTOMATED Collected: 04/27/2018 Status: F Source: [place] 11:28 AM [facility] REPOSITORY TYPE CODE TESTS RESULT OUT [...] Lymph 1.66 Performed By: #### L100.0100 #### [facility] [address] [place], [place], [address] HH, HEMOGLOBIN AND Collected: 04/13/2018 Status: F Source: [place] HEMATOCRIT 11:23 AM [facility] REPOSITORY TYPE CODE TESTS RESULT OUT OF RANGE REFERENCE UNITS LAB L100.1300 12.0-15.0 g/dl Low HGB 10.6 LAB L100.1400 37-47 % Low HCT 33.6 Performed By: #### L100.0600 #### [facility] [address] [place], [place], [id number] RENAL PROFILE Collected: 04/13/2018 Status: F Source: [place] 11:23 AM [facility] REPOSITORY TYPE CODE TESTS RESULT OUT [...] CO2 25.0 Performed By: #### L500.3600 #### [facility] [address] [place], [address] COMPREHENSIVE METABOLIC Collected: 03/30/2018 Status: F Source: [facility] 11:45 AM [facility] REPOSITORY TYPE CODE TESTS RESULT OUT [...] GAP 9 Performed By: #### L500.4050 #### [facility] [address] [place], [place], [address] HEMOGLOBIN A1C Collected: 03/30/2018 Status: F Source: [place] 11:45 AM [facility] REPOSITORY TYPE CODE TESTS RESULT OUT OF RANGE REFERENCE UNITS LAB L501.9985 4.2-6.3 % Normal HGB A1C 5.9 Performed By: #### L501.9985 #### [facility] [address] [place], [place], [address] CBC W/DIFF, AUTOMATED Collected: 03/30/2018 Status: F Source: [place] 11:37 AM [facility] REPOSITORY TYPE CODE TESTS RESULT OUT [...] LYMPHOPENIA NOTED Performed By: #### L100.0100 #### [facility] [address] [place], [place], [id number] HH, HEMOGLOBIN AND Collected: 03/16/2018 Status: F Source: [place] HEMATOCRIT 11:28 AM [facility] REPOSITORY TYPE CODE TESTS RESULT OUT OF RANGE REFERENCE UNITS LAB L100.1300 12.0-15.0 g/dl Low HGB 10.0 LAB L100.1400 37-47 % Low HCT 31.6 Performed By: #### L100.0600 #### [facility] [address] [place], [address] RENAL PROFILE Collected: 03/16/2018 Status: F Source: [place] 11:28 AM [facility] REPOSITORY TYPE CODE TESTS RESULT OUT [...] CO2 23.0 Performed By: #### L500.3600 #### [facility] [address] [place], [place], [address] CBC-COMPLETE BLOOD CNT Collected: 03/02/2018 Status: F Source: [place] NO DIFF 11:26 AM [facility] REPOSITORY TYPE CODE TESTS RESULT OUT [...] MPV 9.7 Performed By: #### L100.0500 #### [facility] [address] [place], [address] PROTEIN+CREATININE Collected: Status: F Source: [facility],URINE 02/16/2018 7:58 AM [facility] REPOSITORY TYPE CODE TESTS RESULT OUT OF RANGE REFERENCE UNITS LAB L501.1200 NO RANGE EST. mg/dL Normal UR CREAT 78.40 LAB L501.1930 <11.9 mg/dL High 13.0 PROTEIN,UR.R AN. LAB L501.1940 0-200 mg/g CRE Normal PROT:CRE 166 RATIO Performed By: #### L501.0900 #### [facility] [address] [place], [address] CBC W/DIFF, AUTOMATED Collected: 02/16/2018 Status: F Source: [place] 7:45 AM [facility] REPOSITORY TYPE CODE TESTS RESULT OUT [...] #### L100.0100, L500.3600, L501.5200, L503.6030, L506.0250 #### [facility] [address] [place], [address] RENAL PROFILE Collected: 02/16/2018 Status: F Source: [place] 7:45 AM [facility] REPOSITORY TYPE CODE TESTS RESULT OUT [...] #### L100.0100, L500.3600, L501.5200, L503.6030, L506.0250 #### [facility] [address] [facility] [place], [place], [address] MAGNESIUM Collected: 02/16/2018 Status: F Source: [place] 7:45 AM [facility] REPOSITORY TYPE CODE TESTS RESULT OUT OF RANGE REFERENCE UNITS LAB L501.5200 1.6-2.6 mg/dL Normal MG 1.7 Performed By: #### L100.0100, L500.3600, L501.5200, L503.6030, L506.0250 #### [facility] [address] [facility] [place], [place], [address] IRON+IRON BINDING Collected: 02/16/2018 Status: F Source: [facility] 7:45 AM [facility] REPOSITORY TYPE CODE TESTS RESULT OUT OF RANGE REFERENCE UNITS LAB L503.6075 250-450 ug/dL Low TIBC 231 LAB L503.6150 50-170 ug/dL IRON Normal 66 LAB L503.6250 15.0-55.0 % IRON Normal SATURATION 28.6 Performed By: #### L100.0100, L500.3600, L501.5200, L503.6030, L506.0250 #### [facility] [address] [place], [address] FOLATES, (FOLIC ACID) Collected: 02/16/2018 Status: F Source: [place] 7:45 AM [facility] REPOSITORY TYPE CODE TESTS RESULT OUT OF RANGE REFERENCE UNITS LAB L506.0250 3.1-55.4 ng/mL Normal FOLATES 11.10 Performed By: #### L100.0100, L500.3600, L501.5200, L503.6030, L506.0250 #### [facility] [address] [place], [address] VITAMIN B12 Collected: 02/16/2018 Status: F Source: [place] 7:45 AM [facility] REPOSITORY TYPE CODE TESTS RESULT OUT OF RANGE REFERENCE UNITS LAB L503.0105 211-911 pg/mL Normal Vitamin B12 224 Performed By: #### L503.0105, L506.1000 #### [facility] [address] [place], [address] VITAMIN D,25 HYDROXY Collected: 02/16/2018 Status: F Source: [place] 7:45 AM [facility] REPOSITORY TYPE CODE TESTS RESULT OUT OF REFERENCE UNITS RANGE LAB L506.1000 29.95-100.01 ng/mL Low Vitamin D 14.9 25-OH Result Comment: Vitamin D 25(OH) Status Range Deficiency <20 ng/mL (50nmol/L) Insuffciency 20 - 30 ng/mL (50 - 75 nmol/L) Sufficiency 30 - 100 ng/mL (75 - 250 nmol/L) Toxicity >100 ng/mL (>250 nmol/L) Performed By: #### L503.0105, L506.1000 #### [facility] [address] [place], [address] PTHIN Collected: 02/16/2018 Status: F Source: [place] 7:45 AM [facility] REPOSITORY TYPE CODE TESTS RESULT OUT OF RANGE REFERENCE UNITS LAB L509.1000 18.4-80.1 pg/mL Normal PTHIN 69.0 Performed By: #### L509.1000 #### [facility] [address] [place], [address] CBC-COMPLETE BLOOD CNT Collected: 02/02/2018 Status: F Source: [place] NO DIFF 7:20 AM [facility] REPOSITORY TYPE CODE TESTS RESULT OUT [...] MPV 10.3 Performed By: #### L100.0500 #### [facility] [address] [place], [place], [address] RENAL PROFILE Collected: 01/19/2018 Status: F Source: [place] 7:24 AM [facility] REPOSITORY Order Comment: Has pt arrived? Y [...] CO2 22.0 Performed By: #### L500.3600 #### [facility] [address] [facility] [place], [place], [address] HH, HEMOGLOBIN AND Collected: 01/19/2018 Status: F Source: [place] HEMATOCRIT 7:24 AM [facility] REPOSITORY Order Comment: Has pt arrived? Y TYPE CODE TESTS RESULT OUT OF RANGE REFERENCE UNITS LAB L100.1300 12.0-15.0 g/dl Low HGB 9.9 LAB L100.1400 37-47 % Low HCT 31.8 Performed By: #### L100.0600 #### [facility] [address] [facility] [place], [place], [address] HH, HEMOGLOBIN AND Collected: 01/05/2018 Status: F Source: [place] HEMATOCRIT 7:24 AM [facility] REPOSITORY TYPE CODE TESTS RESULT OUT OF RANGE REFERENCE UNITS LAB L100.1300 12.0-15.0 g/dl Low HGB 9.8 LAB L100.1400 37-47 % Low HCT 31.5 Performed By: #### L100.0600 #### [facility] [address] [facility] [place], [place], [address] COMPREHENSIVE METABOLIC Collected: 12/30/2017 Status: F Source: [place] PROFIL 8:21 AM [facility] REPOSITORY TYPE CODE TESTS RESULT OUT [...] GAP 9 Performed By: #### L500.4050 #### [facility] [address] [place], [address] HEMOGLOBIN A1C Collected: 12/30/2017 Status: F Source: [place] 8:21 AM [facility] REPOSITORY TYPE CODE TESTS RESULT OUT OF RANGE REFERENCE UNITS LAB L501.9985 4.2-6.3 % Normal HGB A1C 6.0 Performed By: #### L501.9985 #### [facility] [address] [place], [place], [id number] CBC-COMPLETE BLOOD CNT Collected: 12/22/2017 Status: F Source: [place] NO DIFF 7:30 AM [facility] REPOSITORY TYPE CODE TESTS RESULT OUT [...] MPV 10.1 Performed By: #### L100.0500 #### [facility] [address] [place], [place], [address] RENAL PROFILE Collected: 12/22/2017 Status: F Source: [place] 7:30 AM [facility] REPOSITORY TYPE CODE TESTS RESULT OUT [...] CO2 25.0 Performed By: #### L500.3600 #### [facility] [address] [place], [address] HH, HEMOGLOBIN AND Collected: 12/08/2017 Status: F Source: [place] HEMATOCRIT 7:24 AM [facility] REPOSITORY TYPE CODE TESTS RESULT OUT OF RANGE REFERENCE UNITS LAB L100.1300 12.0-15.0 g/dl Low HGB 10.0 LAB L100.1400 37-47 % Low HCT 32.1 Performed By: #### L100.0600 #### [facility] [address] [place], [address] CBC W/DIFF, AUTOMATED Collected: 11/24/2017 Status: F Source: [place] 7:34 AM [facility] REPOSITORY Order Comment: Comments: COPY ALL RESULTS TO DR. PEDERSEN FAX [phone] TYPE CODE TESTS RESULT OUT OF RANGE [...] By: #### L100.0100, L500.3600, L503.6030, L503.6550 #### [facility] [address] [facility]. [place], [place], [address] RENAL PROFILE Collected: 11/24/2017 Status: F Source: [place] 7:34 AM [facility] REPOSITORY Order Comment: Comments: COPY ALL RESULTS TO DR. PEDERSEN FAX [phone] Comments: COPY ALL RESULTS TO DR. PEDERSEN FAX [phone] TYPE CODE TESTS RESULT OUT OF RANGE [...] By: #### L100.0100, L500.3600, L503.6030, L503.6550 #### [facility] [address] [facility] [place], [place], [id number] IRON+IRON BINDING Collected: 11/24/2017 Status: F Source: [facility] 7:34 AM [facility] REPOSITORY Order Comment: Comments: COPY ALL RESULTS TO DR. PEDERSEN FAX [phone] Comments: COPY ALL RESULTS TO DR. PEDERSEN FAX [phone] TYPE CODE TESTS RESULT OUT OF RANGE REFERENCE UNITS LAB L503.6075 250-450 ug/dL Low TIBC 240 LAB L503.6150 50-170 ug/dL IRON Normal 58 LAB L503.6250 15.0-55.0 % IRON Normal SATURATION 24.2 Performed By: #### L100.0100, L500.3600, L503.6030, L503.6550 #### [facility] [address] [place], [place], [address] FERRITIN Collected: 11/24/2017 Status: F Source: [place] 7:34 AM [facility] REPOSITORY Order Comment: Comments: COPY ALL RESULTS TO DR. PEDERSEN FAX [phone] Comments: COPY ALL RESULTS TO DR. PEDERSEN FAX [phone] TYPE CODE TESTS RESULT OUT OF RANGE REFERENCE UNITS LAB L503.6550 8-252 ng/mL Normal FERRITIN 101 Performed By: #### L100.0100, L500.3600, L503.6030, L503.6550 #### [facility] [address] [place], [address] GLUCOSE POC Collected: 11/20/2017 Status: F Source: [facility] 12:13 PM [facility] REPOSITORY TYPE CODE TESTS RESULT OUT OF REFERENCE UNITS RANGE LAB 05728683(LO 70-99 mg/dL INC) High Glucose POC 112 Performed By: #### [id number] #### [facility] [address] [place] [address] GLUCOSE POC Collected: 11/20/2017 Status: F Source: [facility] 7:24 AM [facility] REPOSITORY TYPE CODE TESTS RESULT OUT OF RANGE REFERENCE UNITS LAB 24320738(LO 70-99 mg/dL INC) Normal Glucose POC 76 Performed By: #### [id number] #### [facility] [address] [place] [address] BMP Collected: 11/20/2017 Status: F Source: [facility] 6:03 AM [facility] REPOSITORY TYPE CODE TESTS RESULT OUT OF RANGE REFERENCE UNITS LAB 49433116(L 70-99 mg/dL OINC) Low Glucose Lvl 68 LAB 57066414(L 7-18 mg/dL OINC) High BUN 69 LAB 6165146(LO 0.6-1.3 mg/dL INC) High Creatinine 2.3 LAB 87590948(L 5.4-30.0 ratio OINC) Normal BUN/Creat Ratio 30.0 LAB 28914405(L 8.4-10.2 mg/dL OINC) Low Calcium Lvl 8.1 LAB 79028603(L 136-145 mEq/L OINC) Sodium Normal Lvl 143 LAB 33894673(L 3.5-5.1 mEq/L OINC) Normal Potassium Lvl 3.9 LAB 77038882(L 98-107 mEq/L OINC) High Chloride 119 LAB 32352064(L 24.0-30.0 mEq/L OINC) Low CO2 19.2 Performed By: #### [id number] #### [facility] [address] [place], [place] [address] EGFR Collected: 11/20/2017 Status: F Source: [facility] 6:03 AM [facility] REPOSITORY Order Comment: Order added by Discern Expert. TYPE CODE TESTS RESULT OUT OF RANGE REFERENCE UNITS LAB 86210278(LO mL/min/1.73 INC) m2 Normal eGFR 21 LAB 38238149(LO mL/min/1.73 INC) m2 Normal eGFR AA 25 Performed By: #### [id number] #### [facility] [address] [place] [address] GLUCOSE POC Collected: 11/19/2017 Status: F Source: [facility] 8:34 PM [facility] REPOSITORY TYPE CODE TESTS RESULT OUT OF REFERENCE UNITS RANGE LAB 01714457(LO 70-99 mg/dL INC) High Glucose POC 138 Performed By: #### [id number] #### [facility] [address] [place] [address] GLUCOSE POC Collected: 11/19/2017 Status: F Source: [facility] 4:31 PM [facility] REPOSITORY TYPE CODE TESTS RESULT OUT OF REFERENCE UNITS RANGE LAB 91466003(LO 70-99 mg/dL INC) High Glucose POC 129 Performed By: #### [id number] #### [facility] [address] [place] [address] GLUCOSE POC Collected: 11/19/2017 Status: F Source: [facility] 11:44 AM [facility] REPOSITORY TYPE CODE TESTS RESULT OUT OF REFERENCE UNITS RANGE LAB 39149001(LO 70-99 mg/dL INC) High Glucose POC 138 Performed By: #### [id number] #### [facility] [address] [place] [address] GLUCOSE POC Collected: 11/19/2017 Status: F Source: [facility] 7:31 AM [facility] REPOSITORY TYPE CODE TESTS RESULT OUT OF RANGE REFERENCE UNITS LAB 57264773(LO 70-99 mg/dL INC) Normal Glucose POC 71 Performed By: #### [id number] #### [facility] [address] [place], [place] [address] CBC W/ AUTO DIFF Collected: 11/19/2017 Status: F Source: [facility] 6:07 AM [facility] REPOSITORY TYPE CODE TESTS RESULT OUT OF RANGE REFERENCE UNITS LAB 78017797(L 3.6-11.0 E3/mcL OINC) Normal WBC 6.2 LAB 76594522(L 3.90-5.40 E6/mcL OINC) Low RBC 2.81 LAB 17276866(L 12.0-16.0 G/DL OINC) Low Hgb 9.2 LAB 24591741(L 36.0-48.0 % OINC) Low Hct 27.5 LAB 59572889(L 11.5-14.5 % OINC) Normal RDW 14.1 LAB 49541860(L 27.0-31.0 pg OINC) High MCH 32.9 LAB 37032452(L 33.0-37.0 G/DL OINC) Normal MCHC 33.6 LAB 72485350(L 78.0-100.0 fL OINC) Normal MCV 97.8 LAB 75080201(L 7.4-11.0 fL OINC) Normal MPV 8.1 LAB 37300372(L 130-400 E3/mcL OINC) Normal Platelet 218 Performed By: #### [id number] #### [facility] [address] [place], [place] [address] AUTO DIFF Collected: 11/19/2017 Status: F Source: [facility] 6:07 AM [facility] REPOSITORY Order Comment: Order Added by Discern Expert. TYPE CODE TESTS RESULT OUT OF RANGE REFERENCE UNITS LAB 19504500(L 37.0-75.0 % OINC) Normal Neutro Auto 57.0 LAB 28029376(L 20.0-55.0 % OINC) Normal Lymph Auto 26.3 LAB 93888698(L 0.0-10.0 % OINC) High Grimes Auto 11.0 LAB 79109597(L 0.0-11.0 % OINC) Normal Eos Auto 5.4 LAB 33363905(L 0.0-2.0 % OINC) Normal Basophil Auto 0.3 LAB 18575991(L 1.4-6.5 E3/mcL OINC) Normal Neutro 3.5 Absolute LAB 04922325(L 1.2-3.4 E3/mcL OINC) Normal Lymph Absolute 1.6 LAB 95984219(L 0.0-0.7 E3/mcL OINC) Normal Grimes Absolute 0.7 LAB 72963741(L 0.0-0.7 E3/mcL OINC) Normal Eos Absolute 0.3 LAB 73844439(L 0.0-0.2 E3/mcL OINC) Normal Basophil 0.0 Absolute Performed By: #### [id number] #### [facility] [address] [place] [address] BMP Collected: 11/19/2017 Status: F Source: [facility] 6:07 [facility] REPOSITORY TYPE CODE TESTS RESULT OUT OF RANGE REFERENCE UNITS LAB 00188123(L 70-99 mg/dL OINC) Glucose Normal Lvl 73 LAB 98257623(L 7-18 mg/dL OINC) High BUN 84 LAB 4124688(LO 0.6-1.3 mg/dL INC) High Creatinine 2.8 LAB 10986977(L 5.4-30.0 ratio OINC) Normal BUN/Creat Ratio 30.0 LAB 20279437(L 8.4-10.2 mg/dL OINC) Low Calcium Lvl 8.2 LAB 68980338(L 136-145 mEq/L OINC) Sodium Normal Lvl 142 LAB 84476017(L 3.5-5.1 mEq/L OINC) Normal Potassium Lvl 3.8 LAB 03849002(L 98-107 mEq/L OINC) High Chloride 117 LAB 59853337(L 24.0-30.0 mEq/L OINC) Low CO2 19.4 Performed By: #### [id number] #### [facility] [address] [place] [address] EGFR Collected: 11/19/2017 Status: F Source: [facility] 6:07 [facility] REPOSITORY Order Comment: Order added by Discern Expert. TYPE CODE TESTS RESULT OUT OF RANGE REFERENCE UNITS LAB 20685886(LO mL/min/1.73 INC) m2 Normal eGFR 16 LAB 97171793(LO mL/min/1.73 INC) m2 Normal eGFR AA 20 Performed By: #### [id number] #### [facility] [address] [place] [address] GLUCOSE POC Collected: 11/18/2017 Status: F Source: [facility] 8:20 PM [facility] REPOSITORY TYPE CODE TESTS RESULT OUT OF REFERENCE UNITS RANGE LAB 09996870(LO 70-99 mg/dL INC) High Glucose POC 164 Performed By: #### [id number] #### [facility] P[facility] [address] [place] [address] GLUCOSE POC Collected: 11/18/2017 Status: F Source: [facility] 4:35 PM [facility] REPOSITORY TYPE CODE TESTS RESULT OUT OF REFERENCE UNITS RANGE LAB 12796377(LO 70-99 mg/dL INC) High Glucose POC 103 Performed By: #### [id number] #### [facility] [address] [place] [address] U SODIUM Collected: 11/18/2017 Status: F Source: [facility] 2:45 PM [facility] REPOSITORY TYPE CODE TESTS RESULT OUT OF RANGE REFERENCE UNITS LAB 59790978(LO 40-220 mEq/L INC) Normal U Sodium 43 Performed By: #### [id number] #### [facility] [address] [place] [address] U CREATININE Collected: 11/18/2017 Status: F Source: [facility] 2:45 PM [facility] REPOSITORY TYPE CODE TESTS RESULT OUT OF RANGE REFERENCE UNITS LAB [id number](L 20-300 mg/dL OINC) U Normal Creatinine 83 Performed By: #### [id number] #### [facility] [address] [place] [id number] U PROTEIN Collected: 11/18/2017 Status: F Source: [facility] 2:45 PM [facility] REPOSITORY TYPE CODE TESTS RESULT OUT OF REFERENCE UNITS RANGE LAB [id number](LO 1-14 mg/dL INC) Ur High Total Protein 16 Performed By: #### [id number] #### [facility] [address] [place] [id number] UA COMPLETE Collected: 11/18/2017 Status: F Source: [facility] WITNESS 2:45 PM [facility] REPOSITORY TYPE CODE TESTS RESULT OUT OF RANGE REFERENCE UNITS LAB [id number]( Yellow LOINC) Normal UA Color Yellow LAB 94117190( Clear LOINC) Normal UA Clarity Clear LAB 62292908( Negative LOINC) Normal UA Glucose Negative LAB 27734695( Negative LOINC) Normal UA Bili Negative LAB 22429739( Negative LOINC) Normal UA Ketones Negative LAB 53711182( 1.003-1.030 LOINC) Normal UA Spec Grav 1.011 LAB 38182683( 4.6-8.0 LOINC) Normal UA pH 5.0 LAB 05109523( Negative LOINC) Normal UA Protein Negative LAB 59266020( mg/dL LOINC) Normal UA Urobilinogen Negative LAB 72959398( Negative LOINC) Normal UA Nitrite Negative LAB 21618119( Negative LOINC) Normal UA Blood Negative LAB 00787821( Negative LOINC) Normal UA Leuk Est Negative LAB 65881471( 0-3 /HPF LOINC) Normal UA RBC 0-3 LAB 67188467( 0-5 /HPF LOINC) Normal UA WBC 0-5 LAB 41107842( 0-2 /LPF LOINC) Normal UA Hyal Cast 0-2 LAB 27633359( 0-5 /HPF LOINC) Normal UA Squam Epithelial 0-5 LAB 16350829( None /HPF LOINC) UA Bacteria Abnormal 1+ Performed By: #### [id number] #### CORTEZ Urinalysis Automated Subsection [facility] [place] [address] GLUCOSE POC Collected: 11/18/2017 Status: F Source: JEHOVAH'S WITNESS 11:34 AM [facility] REPOSITORY TYPE CODE TESTS RESULT OUT OF REFERENCE UNITS RANGE LAB 21667080(LO 70-99 mg/dL INC) High Glucose POC 164 Performed By: #### [id number] #### CORTEZ POC Subsection [address] [place] [address] GLUCOSE POC Collected: 11/18/2017 Status: F Source: JEHOVAH'S WITNESS 7:11 AM [facility] REPOSITORY TYPE CODE TESTS RESULT OUT OF REFERENCE UNITS RANGE LAB 54476199(LO 70-99 mg/dL INC) High Glucose POC 100 Performed By: #### [id number] #### CORTEZ POC Subsection [address] [place] [address] BMP Collected: 11/18/2017 Status: F Source: JEHOVAH'S WITNESS 4:49 AM [facility] REPOSITORY TYPE CODE TESTS RESULT OUT OF RANGE REFERENCE UNITS LAB 54633755(L 70-99 mg/dL OINC) High Glucose Lvl 103 LAB 66931985(L 7-18 mg/dL OINC) High BUN 91 LAB 0502606(LO 0.6-1.3 mg/dL INC) High Creatinine 3.5 LAB 23364134(L 5.4-30.0 ratio OINC) Normal BUN/Creat Ratio 26.0 LAB 73534712(L 8.4-10.2 mg/dL OINC) Low Calcium Lvl 7.9 LAB 81461682(L 136-145 mEq/L OINC) Sodium Normal Lvl 140 LAB 54457737(L 3.5-5.1 mEq/L OINC) Normal Potassium Lvl 4.0 LAB 47832681(L 98-107 mEq/L OINC) High Chloride 114 LAB 78059101(L 24.0-30.0 mEq/L OINC) Low CO2 18.5 Performed By: #### [id number] #### CORTEZ [employer] [address] [place] [address] EGFR Collected: 11/18/2017 Status: F Source: JEHOVAH'S WITNESS 4:49 AM [facility] REPOSITORY Order Comment: Order added by Discern Expert. TYPE CODE TESTS RESULT OUT OF RANGE REFERENCE UNITS LAB 00704361(LO mL/min/1.73 INC) m2 Normal eGFR 13 LAB 56318659(LO mL/min/1.73 INC) m2 Normal eGFR AA 15 Performed By: #### [id number] #### CORTEZ [employer] [address] [place] [address] CBC W/ AUTO DIFF Collected: 11/18/2017 Status: F Source: JEHOVAH'S WITNESS 4:47 AM [facility] REPOSITORY TYPE CODE TESTS RESULT OUT OF RANGE REFERENCE UNITS LAB 10110290(L 3.6-11.0 E3/mcL OINC) Normal WBC 5.6 LAB 66660738(L 3.90-5.40 E6/mcL OINC) Low RBC 2.85 LAB 14115941(L 12.0-16.0 G/DL OINC) Low Hgb 9.6 LAB 75740375(L 36.0-48.0 % OINC) Low Hct 28.1 LAB 00361343(L 11.5-14.5 % OINC) Normal RDW 14.5 LAB 13815603(L 27.0-31.0 pg OINC) High MCH 33.5 LAB 13322263(L 33.0-37.0 G/DL OINC) Normal MCHC 34.0 LAB 64531070(L 78.0-100.0 fL OINC) Normal MCV 98.6 LAB 75070904(L 7.4-11.0 fL OINC) Normal MPV 8.1 LAB 13325957(L 130-400 E3/mcL OINC) Normal Platelet 225 Performed By: #### [id number] #### CORTEZ SalazarHemcelina [address] [place], [place] [address] AUTO DIFF Collected: 11/18/2017 Status: F Source: JEHOVAH'S WITNESS 4:47 AM [facility] REPOSITORY Order Comment: Order Added by Discern Expert. TYPE CODE TESTS RESULT OUT OF RANGE REFERENCE UNITS LAB 95939844(L 37.0-75.0 % OINC) Normal Neutro Auto 54.9 LAB 69687416(L 20.0-55.0 % OINC) Normal Lymph Auto 28.2 LAB 47098314(L 0.0-10.0 % OINC) High Grimes Auto 13.4 LAB 00819515(L 0.0-11.0 % OINC) Normal Eos Auto 2.9 LAB 53694459(L 0.0-2.0 % OINC) Normal Basophil Auto 0.6 LAB 26430392(L 1.4-6.5 E3/mcL OINC) Normal Neutro 3.1 Absolute LAB 74259595(L 1.2-3.4 E3/mcL OINC) Normal Lymph Absolute 1.6 LAB 59658158(L 0.0-0.7 E3/mcL OINC) High Grimes Absolute 0.8 LAB 18054639(L 0.0-0.7 E3/mcL OINC) Normal Eos Absolute 0.2 LAB 39511846(L 0.0-0.2 E3/mcL OINC) Normal Basophil 0.0 Absolute Performed By: #### [id number] #### CORTEZ SalazarHemo [address] [place] [address] GLUCOSE POC Collected: 11/17/2017 Status: F Source: JEHOVAH'S WITNESS 9:11 PM [facility] REPOSITORY TYPE CODE TESTS RESULT OUT OF REFERENCE UNITS RANGE LAB 16360973(LO 70-99 mg/dL INC) High Glucose POC 134 Performed By: #### [id number] #### CORTEZ POC Subsection [address] [place] [address] GLUCOSE POC Collected: 11/17/2017 Status: F Source: JEHOVAH'S WITNESS 4:19 PM [facility] REPOSITORY TYPE CODE TESTS RESULT OUT OF REFERENCE UNITS RANGE LAB 82698389(LO 70-99 mg/dL INC) High Glucose POC 137 Performed By: #### [id number] #### CORTEZ POC Subsection [address] [place] [address] GLUCOSE POC Collected: 11/17/2017 Status: F Source: JEHOVAH'S WITNESS 11:19 AM [facility] REPOSITORY TYPE CODE TESTS RESULT OUT OF REFERENCE UNITS RANGE LAB 90996925(LO 70-99 mg/dL INC) High Glucose POC 130 Performed By: #### [id number] #### CORTEZ POC Subsection [address] [place] [address] GLUCOSE POC Collected: 11/17/2017 Status: F Source: JEHOVAH'S WITNESS 7:44 AM [facility] REPOSITORY TYPE CODE TESTS RESULT OUT OF RANGE REFERENCE UNITS LAB 63184447(LO 70-99 mg/dL INC) Normal Glucose POC 78 Performed By: #### [id number] #### CORTEZ POC Subsection [address] [place] [address] BMP Collected: 11/17/2017 Status: F Source: JEHOVAH'S WITNESS 5:57 AM [facility] REPOSITORY TYPE CODE TESTS RESULT OUT OF RANGE REFERENCE UNITS LAB 38783092(L 70-99 mg/dL OINC) Normal Glucose Lvl 80 LAB 42746267(L 7-18 mg/dL OINC) Abnormal Alert BUN 106 Result Comment: Critical Result BUN: Called to: MARY CARMEN BUCHANAN at: 06:45:11 by:[facility] Read back by:MARY CARMEN BUCHANAN LAB 5474773(LOINC) 0.6-1.3 mg/dL High Creatinine 4.2 LAB 08285203(LOINC) 5.4-30.0 ratio Normal BUN/Creat Ratio 25.2 LAB 22859424(LOINC) 8.4-10.2 mg/dL Normal Calcium Lvl 8.5 LAB 89276524(LOINC) 136-145 mEq/L Low Sodium Lvl 135 LAB 07538390(LOINC) 3.5-5.1 mEq/L Normal Potassium Lvl 3.7 LAB 21510755(LOINC) 98-107 mEq/L High Chloride 108 LAB 74889768(LOINC) 24.0-30.0 mEq/L Low CO2 18.1 Performed By: #### [id number] #### CORTEZ [employer] [address] [place] [address] EGFR Collected: 11/17/2017 Status: F Source: JEHOVAH'S WITNESS 5:57 AM [facility] REPOSITORY Order Comment: Order added by Discern Expert. TYPE CODE TESTS RESULT OUT OF RANGE REFERENCE UNITS LAB 18097120(LO mL/min/1.73 INC) m2 Normal eGFR 10 LAB 00687474(LO mL/min/1.73 INC) m2 Normal eGFR AA 12 Performed By: #### [id number] #### CORTEZ [employer] [address] [place] [address] HGBA1C Collected: 11/17/2017 Status: F Source: JEHOVAH'S WITNESS 5:57 AM [facility] REPOSITORY TYPE CODE TESTS RESULT OUT OF RANGE REFERENCE UNITS LAB 389008273( 4.0-6.3 % LOINC) Normal Hemoglobin A1c 6.1 Performed By: #### [id number] #### CORTEZ Chemistry Manual Subsection [address] [place] [address] XR ABDOMEN ACUTE (PA Observed: 11/17/2017 Status: F Source: JEHOVAH'S WITNESS CHEST) 1:15 AM [facility] REPOSITORY Exam Date/Time: 11/17/2017 01:15 EST Reason [...] BY PCR Collected: 11/17/2017 Status: F Source: JEHOVAH'S WITNESS 1:04 AM [facility] REPOSITORY TYPE CODE TESTS RESULT OUT OF RANGE REFERENCE UNITS LAB 545810470( Negative LOINC) Normal Toxigenic C. Negative diff PCR Result Comment: Performance characteristics were not established for patients < 2 years of age. LAB 388128156(LOINC) Presumptive Neg Normal 027-NAP1-B1 by Presumptive Neg PCR Result Comment: Detection of 027/NAP1/B1 strains of C. difficile is presumptive and is solely for epidemiological purpose and is not intended to guide or monitor treatment for C. difficile infections. Performed By: #### [id number] #### CORTEZ Misc Micro SubSection , CBC W/ AUTO DIFF Collected: 11/17/2017 Status: F Source: JEHOVAH'S WITNESS 1:00 AM [facility] REPOSITORY TYPE CODE TESTS RESULT OUT OF RANGE REFERENCE UNITS LAB 00843769(L 3.6-11.0 E3/mcL OINC) Normal WBC 6.9 LAB 71953862(L 3.90-5.40 E6/mcL OINC) Low RBC 3.29 LAB 59211171(L 12.0-16.0 G/DL OINC) Low Hgb 10.8 LAB 86767474(L 36.0-48.0 % OINC) Low Hct 32.8 LAB 02978300(L 11.5-14.5 % OINC) High RDW 14.8 LAB 70414762(L 27.0-31.0 pg OINC) High MCH 32.7 LAB 51692477(L 33.0-37.0 G/DL OINC) Low MCHC 32.8 LAB 63711020(L 78.0-100.0 fL OINC) Normal MCV 99.7 LAB 50088391(L 7.4-11.0 fL OINC) Normal MPV 8.1 LAB 81822950(L 130-400 E3/mcL OINC) Normal Platelet 244 Performed By: #### [id number] #### CORTEZ Rem[employer]emo [address] [place] [address] AUTO DIFF Collected: 11/17/2017 Status: F Source: JEHOVAH'S WITNESS 1:00 AM [facility] REPOSITORY Order Comment: Order Added by Discern Expert. TYPE CODE TESTS RESULT OUT OF RANGE REFERENCE UNITS LAB 49964953(L 37.0-75.0 % OINC) Normal Neutro Auto 70.9 LAB 15836715(L 20.0-55.0 % OINC) Low Lymph Auto 13.4 LAB 55751592(L 0.0-10.0 % OINC) High Grimes Auto 14.7 LAB 50543501(L 0.0-11.0 % OINC) Normal Eos Auto 0.4 LAB 18516684(L 0.0-2.0 % OINC) Normal Basophil Auto 0.6 LAB 70273804(L 1.4-6.5 E3/mcL OINC) Normal Neutro 4.9 Absolute LAB 21262290(L 1.2-3.4 E3/mcL OINC) Low Lymph Absolute 0.9 LAB 32021754(L 0.0-0.7 E3/mcL OINC) High Grimes Absolute 1.0 LAB 64590541(L 0.0-0.7 E3/mcL OINC) Normal Eos Absolute 0.0 LAB 33369362(L 0.0-0.2 E3/mcL OINC) Normal Basophil 0.0 Absolute Performed By: #### [id number] #### CORTEZ Rem[employer]emo [facility] [place] [address] LACTIC ACID Collected: 11/17/2017 Status: F Source: JEHOVAH'S WITNESS 1:00 AM [facility] REPOSITORY TYPE CODE TESTS RESULT OUT OF RANGE REFERENCE UNITS LAB 16627316(LO 0.5-2.2 mmol/L INC) Normal Lactic Acid 1.3 Lvl Performed By: #### 7053854 #### CORTEZ [employer] [facility] [place] [address] HEP FUNC PANEL Collected: 11/17/2017 Status: F Source: JEHOVAH'S WITNESS 1:00 AM [facility] REPOSITORY TYPE CODE TESTS RESULT OUT OF RANGE REFERENCE UNITS LAB 06045626(L 10-40 Int._Unit/L OINC) Normal ALT 16 LAB 06775688(L 10-42 Int._Unit/L OINC) Normal AST 15 LAB 45620927(L 3.2-5.0 G/DL OINC) Normal Albumin Lvl 3.3 LAB 57414387(L 2.0-4.0 G/DL OINC) Normal Globulin 2.9 LAB 14732423(L 1.1-1.9 ratio OINC) Normal A/G Ratio 1.1 LAB 21159975(L 42-121 Int._Unit/L OINC) Normal Alk Phos 47 LAB 88302172(L .00-.20 mg/dL OINC) Normal Bili Direct <.10 LAB 60895816(L OINC) Normal Bili Indirect >0.3 Result Comment: No established ranges available for the Indirect Biliruben. LAB 84892110(LOINC) 0.2-1.0 mg/dL Normal Bili Total 0.4 LAB 35190403(LOINC) 6.4-8.3 G/DL Low Total Protein 6.2 Performed By: #### [id number] #### CORTEZ [employer] [facility] [place] [address] LIPASE LEVEL Collected: 11/17/2017 Status: F Source: JEHOVAH'S WITNESS 1:00 AM [facility] REPOSITORY TYPE CODE TESTS RESULT OUT OF RANGE REFERENCE UNITS LAB 64651582(LO 8-57 U/L INC) Normal Lipase Lvl 12 Performed By: #### 6034774 #### CORTEZ [employer] [facility] [place] [address] BMP Collected: 11/17/2017 Status: F Source: JEHOVAH'S WITNESS 1:00 AM [facility] REPOSITORY TYPE CODE TESTS RESULT OUT OF RANGE REFERENCE UNITS LAB 63309729(L 70-99 mg/dL OINC) Normal Glucose Lvl 77 LAB 7482689(LO 0.6-1.3 mg/dL INC) High Creatinine 4.7 LAB 35426651(L 8.4-10.2 mg/dL OINC) Normal Calcium Lvl 9.3 LAB 53718654(L 136-145 mEq/L OINC) Low Sodium Lvl 135 LAB 58063968(L 3.5-5.1 mEq/L OINC) Normal Potassium Lvl 3.5 LAB 38671126(L 98-107 mEq/L OINC) Normal Chloride 106 LAB 78373058(L 24.0-30.0 mEq/L OINC) Low CO2 17.2 LAB 47412767(L 7-18 mg/dL OINC) BUN Abnormal 106 Alert Result Comment: Critical Result BUN: Called to: LALY DIGGS at: 01:31:55 by:MICKEY Read back by:LALY DIGGS LAB 85366582(LOINC) 5.4-30.0 ratio Normal BUN/Creat Ratio 22.6 Performed By: #### 9215020 #### CORTEZ [employer] [address] [place] [address] EGFR Collected: 11/17/2017 Status: F Source: JEHOVAH'S WITNESS 1:00 AM [facility] REPOSITORY Order Comment: Order added by Discern Expert. TYPE CODE TESTS RESULT OUT OF RANGE REFERENCE UNITS LAB 28104940(LO mL/min/1.73 INC) m2 Normal eGFR 9 LAB 52965561(LO mL/min/1.73 INC) m2 Normal eGFR AA 11 Performed By: #### 57740065 #### CORTEZ [employer] [address] [place] [address] HH, HEMOGLOBIN AND Collected: 11/10/2017 Status: F Source: [place] HEMATOCRIT 7:33 AM [facility] REPOSITORY TYPE CODE TESTS RESULT OUT OF RANGE REFERENCE UNITS LAB L100.1300 12.0-15.0 g/dl Low HGB 10.3 LAB L100.1400 37-47 % Low HCT 33.4 Performed By: #### L100.0600 #### [facility] [address] [place], [place], [address] CBC-COMPLETE BLOOD CNT Collected: 10/27/2017 Status: F Source: [place] NO DIFF 7:30 AM [facility] REPOSITORY TYPE CODE TESTS RESULT OUT [...] 10.1 Performed By: #### L100.0500, L500.3600 #### [facility] [address] [place], [place], [address] RENAL PROFILE Collected: 10/27/2017 Status: F Source: [place] 7:30 AM [facility] REPOSITORY TYPE CODE TESTS RESULT OUT [...] 23.0 Performed By: #### L100.0500, L500.3600 #### [facility] [address] [place], [address] HH, HEMOGLOBIN AND Collected: 10/13/2017 Status: F Source: [place] HEMATOCRIT 7:36 AM [facility] REPOSITORY TYPE CODE TESTS RESULT OUT OF RANGE REFERENCE UNITS LAB L100.1300 12.0-15.0 g/dl Low HGB 9.9 LAB L100.1400 37-47 % Low HCT 31.8 Performed By: #### L100.0600 #### [facility] [address] [place], [address] ALLERGIES ALLERGIES DATE TYPE / CODE NAME / CODE REACTION SEVERITY SOURCE 07/20/2018 Drug Penicillins/E12827 Rash MD [place] Allergy/416 0476(RXNORM) [facility] 472193([email or web address] Repository Drug/850519 penicillins Mu-Ism 003([facility]) System Repository ENCOUNTERS ENCOUNTERS ADMIT/DISCHARGE ACCOUNT ADMITTING ENCOUNTER LOCATION SOURCE NUMBER CLASS 10/09/2018 [id number] [facility] Hospital ing:PSN Repository 09/28/2018 [id number] [facility] Hospital ing:MEDOUTP Repository 09/20/2018/09/20/19 [id number] [facility] Mu-Ism Mu-Ism 19 [facility] ing:CD:[id number] [facility] System 7151Room: Repository CD:[id number] 09/14/2018 [id number] [facility] Repository 08/31/2018 [id number] [facility] Hospital ing:MEDOUTP Repository 08/16/2018 [id number] [facility] Hospital ing:MEDOUTP Repository 08/03/2018 [id number] [facility] Repository 07/20/2018 [id number] [facility]ository 07/06/2018 [id number] [facility] ing:[facility]P Repository 06/22/2018 [id number] [facility] Hospital ing:MEDOUTP Repository 06/08/2018 [id number] [facility] Repository 05/25/2018 [id number] [facility] Hospital ing:MEDOUTP Repository 05/11/2018 [id number] Ambulatory [place] [facility] ing:MEDOUTP Repository 04/27/2018 [id number] Ambulatory [place] [facility] ing:MEDOUTP Repository 04/13/2018 [id number] Ambulatory [place] [facility] ing:MEDOUTP Repository 03/30/2018 [id number] Ambulatory [place] [facility] ing:MEDOUTP Repository 03/16/2018 [id number] Ambulatory [place] [facility] ing:MEDOUTP Repository 03/02/2018 [id number] [facility]ulatory [place] [facility] ing:MEDOUTP Repository 02/16/2018 [id number] Ambulatory [place] [facility] ing:MEDOUTP Repository 02/02/2018 [id number] Ambulatory [place] [facility] ing:MEDOUTP Repository 01/19/2018 [id number] [facility]ulatory [place] [facility] ing:MEDOUTP Repository 01/05/2018 [id number] Ambulatory [place] [facility] ing:MEDOUTP Repository 12/30/2017 [id number] [facility]ulatory [place] [facility] ing:LAB Repository 12/22/2017 [id number] Ambulatory [place] [facility] ing:MEDOUTP Repository 12/08/2017 [id number] Ambulatory [place] [facility] ing:MEDOUTP Repository 11/24/2017 [id number] Ambulatory [place] [facility] ing:MEDOUTP Repository 11/17/2017/11/21/[id number] ing:[facility] oom: 0303Bed: Repository 11/10/2017 [id number] [facility] ing:MED[facility]P Repository 10/27/2017 [id number] Ambulatory [place] [facility] ing:MEDOUTP Repository 10/13/2017 [id number] Ambulatory [place] [facility] ing:MEDOUTP Repository PAYERS PAYERS ENCOUNTER GUARANTOR PAYER SUBSCRIBER SOURCE 10/09/2018 MONY R Primary MONY R [place] [id number] CR Insurance:MEDICARE WICKHAMDOB: [facility] [address], [place] [facility] [id number] [address]Joy: Number: Repository [id number] () Date:2018-07-12 10/09/2018 Secondary MONY R [place] Insurance:[facility]: [facility] Number: [id number] Hospital [id number] Repository Date:6248-59-97VXUMIX OF [place] [address]KJ: 10/09/2018 Tertiary NOT GIVENUNK [place] Insurance:SELF PAY [facility] Number: Effective Repository Date:2018-07-12 09/28/2018 MONY R Primary MONY R [place] [id number] CR Insurance:[facility]ICARE [facility]: [address], [place] [facility] [id number] Service Unit [address]Jaa: Number: Repository [id number] () Date:2018-09-14 09/28/2018 Secondary MONY R [place] Insurance:[facility]UTUAL [facility]: [facility] Number: [id number] Hospital [id number] Repository Date:0510-25-88OIPWTZ [place], [place] [address]EY: 09/28/2018 Tertiary NOT GIVENUNK [place] Insurance:SELF PAY [facility] Number: Effective Repository Date:2018-09-14 09/20/2018 MONY R Primary MONY R Mu-Ism XIRIGOBERTOB: Insurance[facility] icy Number: Effective [id number] [facility] [address] Date:2018-09-[address] [facility] Repository [address] [place] [address], [id number] [address] [place] [address] Name:CD:[id number] [address]Hfi: [id number] [address]Hhu: [id number]: [phone] (HP) [phone] (HP) (WP) 09/20/2018 Secondary MONY R Mu-Ism Insurance:MUTUAL OF [facility]: [facility] Number: [id number] System Effective [address] [place] [address] ROAD Repository Date:2018-09-20 - [address] [place] [address] [id number] [place] Name:CD:[id number] [id number]: [facility] [place] [address]FX: [phone] ([phone] (WP) 09/14/2018 MONY R Primary MONY R [place] [id number] CR Insurance:[facility]ARE [facility]: [address], [place] [facility] [id number] Service Unit [address]Mqw: Number: Repository [id number] (HP) Date:2018-08-31 09/14/2018 Secondary MONY R [place] Insurance:MUTUAL [facility]: [facility] Number: [id number] Hospital [id number] Repository Date:5896-48-16QGXMMG OF [place] YESSICAELISHAGRANV[place] [address]ER: 09/14/2018 Tertiary NOT GIVENUNK [place] Insurance:SELF PAY [facility] Number: Effective Repository Date:2018-08-31 08/31/2018 MONY R Primary MONY R [place] [id number] CR Insurance:[facility]ARE [facility]B: [address], [address] [facility] [id number] [address]Xxa: Number: Repository [id number] (HP) Date:2018-08-16 08/31/2018 Secondary MONY R [place] Insurance:MUTUAL OF [facility]OL[facility]ITALDOB: [facility] Number: [id number] Hospital [id number] Repository Date:1020-36-06IWCYHE OF [place], [place] [address]VL: 08/31/2018 Tertiary NOT GIVENUNK [place] Insurance:SELF PAY [facility] Number: Effective Repository Date:2018-08-16 08/16/2018 MONY R Primary MONY R [place] [id number] CR Insurance:MEDICARE WICKHAMDOB: [address], [place] [facility] [id number] Service Unit [address]Kuk: Number: Repository [id number] () Date:2018-08-03 08/16/2018 Secondary MONY R [place] Insurance:[facility]: [facility] Number: [id number] Hospital [id number] Repository Date:2498-14-43HKKEZG OF [place], [place] [address]YX: 08/16/2018 Tertiary NOT GIVENUNK [place] Insurance:SELF PAY [facility] Number: Effective Repository Date:2018-08-03 08/03/2018 MONY R Primary MONY R [place] [id number] CR Insurance:MEDICARE WICKHAMDOB: [address], [address] [facility] [id number] Service Unit [address]Sjg: Number: Repository [id number] () Date:2018-08-01 08/03/2018 Secondary MONY R [place] Insurance:[facility]UAL OF [facility]: [facility] Number: [id number] Hospital [id number] Repository Date:8984-39-48LKFDJI OF [place], [place] [address]AU: 08/03/2018 Tertiary NOT GIVENUNK [place] Insurance:SELF PAY [facility] Number: Effective Repository Date:2018-08-01 07/20/2018 MONY R Primary MONY R [place] [id number] CR Insurance:MEDICARE WICKHAMDOB: [facility] [address], [place] [facility] [id number] Service Unit [address]Qki: Number: Repository [id number] () Date:2018-07-06 07/20/2018 Secondary MONY R [place] Insurance:MUTUAL OF WICKHAMDOB: [facility] Number: [id number] Hospital [id number] Repository Date:[id number], [place] [address]AK: 07/20/2018 Tertiary NOT GIVENUNK [place] Insurance:SELF PAY [facility] Number: Effective Repository Date:2018-07-06 07/06/2018 MONY R Primary MONY R [place] [id number] CR Insurance:MEDICARE WICKHAMDOB: [address], [place] [facility] [id number] Service [facility] [id number]: Number: Repository [id number] (HP) Date:2018-06-22 07/06/2018 Secondary MONY R [place] [facility] Number: [id number] [id number] Repository Date:[id number] OF [place], [place] [address]DJ: 07/06/2018 Tertiary NOT GIVENUNK [place] Insurance:SELF PAY [facility] Number: Effective Repository Date:2018-06-22 06/22/2018 MONY R Primary MONY R [place] [id number] CR Insurance:MEDICARE WICKHAMDOB: [address], PART A [facility] [id number] Service Unit [address]Iug: Number: Repository [id number] () Date:2018-06-08 06/22/2018 Secondary MONY R [place] Insurance:MUTUAL OF WICKHAMDOB: [facility] Number: [id number] Hospital [id number] Repository Date:7938-08-22EFXHUG [place] [address]TJ: 06/22/2018 Tertiary NOT GIVENUNK [place] Insurance:SELF PAY [facility] Number: Effective Repository Date:2018-06-08 06/08/2018 MONY R Primary MONY R [place] [id number] CR Insurance:MEDICARE WICKHAMDOB: [place] [address]LO[facility] [id number] Service Unit [address]Nkz: Number: Repository [id number] (HP) Date:2018-05-25 06/08/2018 Secondary MONY R [place] Insurance:MUTUAL OF [facility]: [facility] Number: [id number] Hospital [id number] Repository Date:8547-44-21YZGMJG OF [place], [place] [address]EC: 06/08/2018 Tertiary NOT GIVENUNK [place] Insurance:SELF PAY [facility] Number: Effective Repository Date:2018-05-25 05/25/2018 MONY R Primary MONY R [place] [id number] CR Insurance:MEDICARE WICKHAMDOB: [address], PART A [facility] [id number] Service Unit [address]Pgj: Number: Repository [id number] (HP) Date:2018-05-11 05/25/2018 Secondary MONY R [place] Insurance:MUTUAL OF [facility] Number: [id number] Hospital [id number] Repository Date:2800-14-49WENECD [place] [address]TJ: 05/25/2018 Tertiary NOT GIVENUNK [place] Insurance:SELF PAY [facility] Number: Effective Repository Date:2018-05-11 05/11/2018 MONY R Primary MONY R [place] [id number] CR Insurance:MEDICARE WICKHAMDOB: [address], PART A [facility] [id number] Service Unit [address]Tkp: Number: Repository [id number] (HP) Date:2018-04-27 05/11/2018 Secondary MONY R [place] Insurance:MUTUAL OF [facility]: [facility] Number: [id number] Hospital [id number] Repository Date:9575-65-65MLGFJM [place] [address]JF: 05/11/2018 Tertiary NOT GIVENUNK [place] Insurance:SELF PAY [facility] Number: Effective Repository Date:2018-04-27 04/27/2018 MONY R Primary MONY R [place] [id number] CR Insurance:MEDICARE WICKHAMDOB: [address], PART A [facility] [id number] Service Unit [address]Tpu: Number: Repository [id number] (HP) Date:2018-04-13 04/27/2018 Secondary MONY R [place] Insurance:MUTUAL OF [facility]: [facility] Number: [id number] Hospital [id number] Repository Date:0388-00-05SRVDLA [place] [address]CO: 04/27/2018 Tertiary NOT GIVENUNK [place] Insurance:SELF PAY [facility] Number: Effective Repository Date:2018-04-13 04/13/2018 MONY R Primary MONY R [place] [id number] CR Insurance:MEDICARE WICKHAMDOB: [address], PART A [facility] [id number] Service Unit [address]Stx: Number: Repository [id number] (HP) Date:2018-03-30 04/13/2018 Secondary MONY R [place] Insurance:MUTUAL OF [facility]: [facility] Number: [id number] Hospital [id number] Repository Date:7015-09-78SUVCEN [place], [place] [address]PW: 04/13/2018 Tertiary NOT GIVENUNK [place] Insurance:SELF PAY [facility] Number: Effective Repository Date:2018-03-30 03/30/2018 MONY R Primary MONY R [place] [id number] CR Insurance:MEDICARE WICKHAMDOB: [address], PART A [facility] [id number] Service Unit [address]Uvh: Number: Repository [id number] (HP) Date:2018-03-16 03/30/2018 Secondary MONY R [place] Insurance:MUTUAL OF [facility]ITALB: [facility] Number: [id number] Hospital [id number] Repository Date:5847-62-54DQUQQQ OF [place], [place] [address]DV: 03/30/2018 Tertiary NOT GIVENUNK [place] Insurance:SELF PAY [facility] Number: Effective Repository Date:2018-03-16 03/16/2018 MONY R Primary MONY R [place] [id number] CR Insurance:MEDICARE WICKHAMDOB: [address], PART A [facility] [id number] Service Unit [address]Gsg: Number: Repository [id number] (HP) Date:2018-03-02 03/16/2018 Secondary MONY R [place] Insurance:MUTUAL OF [facility]: [facility] Number: [id number] Hospital [id number] Repository Date:7690-83-67IVTWMN OF [place], [place] [address]AP: 03/16/2018 Tertiary NOT GIVENUNK [place] Insurance:SELF PAY [facility] Number: Effective Repository Date:2018-03-02 03/02/2018 Mony R Primary Mony R [place] [id number] CR Insurance:MEDICARE WickhamDOB: [address], PART A [facility] [id number] Service Unit [address]Etf: Number: Repository [id number] (HP) Date:2018-02-16 03/02/2018 Secondary Mony R [place] Insurance:MUTUAL OF [facility]: [facility] Number: [id number] Hospital [id number] Repository Date:5424-04-83OEZMFU OF [place], [place] [address]YA: 03/02/2018 Tertiary NOT GIVENUNK [place] Insurance:SELF PAY [facility] Number: Effective Repository Date:2018-02-16 02/16/2018 Mony R Primary Mony R [place] [id number] CR Insurance:MEDICARE Wick[place]DOB: [place] [address] [id number] Service Unit [address]Zgi: Number: Repository [id number] () Date:2018-02-02 02/16/2018 Secondary Mony R [place] Insurance:MUTUAL OF [facility]: [facility] Number: [id number] Hospital [id number] Repository Date:5014-03-91UYHBGK OF [place], [place] [address]AT: 02/16/2018 Tertiary NOT GIVENUNK [place] Insurance:SELF PAY [facility] Number: Effective Repository Date:2018-02-02 02/02/2018 Mony R Primary Mony R [place] [id number] CR Insurance:MEDICARE WickhamDOB: [place] [address] [id number] Service Unit [address]Qrt: Number: Repository [id number] (HP) Date:2018-01-19 02/02/2018 Secondary Mony R [place] Insurance:MUTUAL OF [facility]: [facility] Number: [id number] Hospital [id number] Repository Date:0481-99-72MVMUEJ OF [place] [address]QQ: 02/02/2018 Tertiary NOT GIVENUNK [place] Insurance:SELF PAY [facility] Number: Effective Repository Date:2018-01-19 01/19/2018 Mony R Primary Mony R [place] [id number] CR Insurance:MEDICARE WickhamDOB: [address], PART A [facility] [id number] Service Unit [address]Cly: Number: Repository [id number] () Date:2018-01-05 01/19/2018 Secondary Mony R [place] Insurance:MUTUAL OF [facility]: [facility] Number: [id number] Hospital [id number] Repository Date:2485-34-55MHJIKQ OF [place], [place] [address]PO: 01/19/2018 Tertiary NOT GIVENUNK [place] Insurance:SELF PAY [facility] Number: Effective Repository Date:2018-01-05 01/05/2018 Mony R Primary Mony R [place] [id number] Cr Insurance:MEDICARE WickhamDOB: [address], PART A [facility] [id number] Service Unit [address]Jjz: Number: Repository [id number] () Date:2017-12-22 01/05/2018 Secondary Mony R [place] Insurance:MUTUAL OF WiRedlands Community HospitalB: [facility] Number: [id number] Hospital [id number] Repository Date:2732-33-16PGCOQN OF [place], [place] [address]ER: 01/05/2018 Tertiary NOT GIVENUNK [place] Insurance:SELF PAY [facility] Number: Effective Repository Date:2017-12-22 12/30/2017 Mony R Primary Mony R [place] [id number] Cr Insurance:MEDICARE WickhamDOB: [address], PART A [facility] [id number] Service Unit [address]Onw: Number: Repository [id number] () Date:2017-12-30 12/30/2017 Secondary Mony R [place] Insurance:MUTUAL OF WickhamDOB: [facility] Number: [id number] Hospital [id number] Repository Date:2275-46-25YTBTXW OF [place] [address]BX: 12/30/2017 Tertiary NOT GIVENUNK [place] Insurance:SELF PAY [facility] Number: Effective Repository Date:2017-12-30 12/22/2017 Mony R Primary Mony R [place] [id number] Cr Insurance:MEDICARE Wick[place]DOB: [place] [address], PART A [facility] [id number] Service Unit [address]Roo: Number: Repository [id number] (HP) Date:2017-12-08 12/22/2017 Secondary Mony R [place] Insurance:MUTUAL OF WickhamDOB: [facility] Number: [id number] [id number] Repository Date:9142-18-32TRDFVD OF [place], [place] [address]IR: 12/22/2017 Tertiary NOT GIVENUNK [place] Insurance:SELF PAY [facility] Number: Effective Repository Date:2017-12-08 12/08/2017 Mony R Primary Mony R [place] [id number] Cr Insurance:MEDICARE WickhamDOB: [address], PART A [facility] [id number] Service Unit [address]Kms: Number: Repository [id number] (HP) Date:2017-11-24 12/08/2017 Secondary Mony R [place] Insurance:MUTUAL OF WickhamDOB: [facility] Number: [id number] Hospital [id number] Repository Date:8523-17-22NVARIE OF [place], [place] [address]SA: 12/08/2017 Tertiary NOT GIVENUNK [place] Insurance:SELF PAY [facility] Number: Effective Repository Date:2017-11-24 11/24/2017 Mony R Primary Mony R [place] [id number] Cr Insurance:MEDICARE WickhamDOB: [address], PART A [facility] [id number] Service Unit [address]Ghs: Number: Repository [id number] (HP) Date:2017-11-10 11/24/2017 Secondary Mony R [place] Insurance:MUTUAL OF [facility]: [facility] Number: [id number] Hospital [id number] Repository Date:6920-06-10NHQUSV [place] [address]BO: 11/24/2017 Tertiary NOT GIVENUNK [place] Insurance:SELF PAY [facility] Number: Effective Repository Date:2017-11-10 11/17/2017 MONY R Primary MONY R Mu-Ism [facility]: Insurance:MedicareKindred Hospital PhiladelphiaB: [facility] ic Number: Effective [id number] Date:2017-11-[address] [facility] Repository [address] [place] [address] 1118-13-84Xxnl [address] [place] [address] Name:CD:[id number] [facility] [id number]: [id number], [place] [address]Uoc: [phone]: [phone] (HP) [phone] (HP) (WP) 11/17/2017 Secondary MONY R Mu-Ism Insurance:MUTUAL OF [facility]: [facility] Number: [id number] System Effective [address] [place] [address] ROAD Repository Date:2017-11-17 - [address] [place] [address] 2646-68-44Xufl [place] Name:CD:[id number] [address]Jpi: [place] [address]XJ: [phone] (HP) [phone] (WP) 11/10/2017 Mony R Primary Mony R [place] [id number] Cr Insurance:MEDICARE [facility] HospitalB: [address], PART A [facility] [id number] Service Unit [address]Pxb: Number: Repository [id number] (HP) Date:2017-10-27 11/10/2017 Secondary Mony R [place] Insurance:MUTUAL OF [facility]: [facility] Number: [id number] Hospital [id number] Repository Date:7945-83-09UDJPBK OF [place] [address]LN: 11/10/2017 Tertiary NOT GIVENUNK [place] Insurance:SELF PAY [facility] Number: Effective Repository Date:2017-10-27 10/27/2017 Mony R Primary Mony R [place] [id number] Cr Insurance:MEDICARE WickhamDOB: [address], PART A [facility] [id number] Service Unit [address]Kyb: Number: Repository [id number] (HP) Date:2017-10-13 10/27/2017 Secondary Mony R [place] Insurance:MUTUAL OF [facility] HospitalB: [facility] Number: [id number] Hospital [id number] Repository Date:7640-89-97SOUZGW [place], [place] [address]HZ: 10/27/2017 Tertiary NOT GIVENUNK [place] Insurance:SELF PAY [facility] Number: Effective Repository Date:2017-10-13 10/13/2017 Mony R Primary Mony R [place] [id number] Cr Insurance:MEDICARE WickhamDOB: [address], PART A [facility] [id number] Service Unit [address]Lbo: Number: Repository [id number] (HP) Date:2017-09-29 10/13/2017 Secondary Mony R [place] Insurance:MUTUAL OF [facility]: [facility] Number: [id number] Hospital [id number] Repository Date:9445-88-83VYCDIZ OF [place], [place] [address]PQ: 10/13/2017 Tertiary NOT GIVENUNK [place] Insurance:SELF PAY [facility] Number: Effective Repository Date:2017-09-29
== END ==
PROVIDERS: Referring Provider Internal Medicine Nephrology; Visit Provider Internal Medicine Nephrology
DX: N18.4 Chronic kidney disease, stage 4 (severe) (principal); D63.1 Anemia in chronic kidney disease
CPT/HCPCS: 36415; 85014; 85018; 96372; J0885

== ENCOUNTER → 2018-09-14 11:17 | Outpatient (CLI) | payer MEDICARE, OTHER, SELFPAY ==
[2018-08-31 12:13] VITALS: BMI 42.7
[2018-09-14 11:32] VITALS: BP 124/65; PULSE 61; RESP 18; TEMP 35.9; O2SAT 95; BMI 42.7
[2018-09-14 11:51] LABS: Hematocrit 33.9 % (37-47); Hemoglobin 10.5 g/dl (12.0-15.0); Mean Corpuscular Hgb 31.3 pg (27.0-32.0); Mean Corpuscular Volume 100.9 fL (81-99); Mean Platelet Vol. 10.2 fl (6.2-12.0); Platelet Count 245 K/mm3 (150-450); RBC Distribution Width CV 13.8 % (11.6-14.6); RBC Distribution Width SD 50.8 fl (35.1-43.9); Red Blood Count 3.36 M/mm3 (4.2-5.4); White Blood Count 7.1 K/mm3 (4.4-11.0)
[2018-09-14 11:52] LABS: Scan Indicated on CBC? Y/N NO
[2018-09-14 12:06] LABS: AST(SGOT) 14 U/L (15-37); Alanine Aminotransfer ALT/SGPT 23 U/L (13-56); Albumin, Serum 3.4 g/dL (3.2-5.0); Alkaline Phosphatase 95 U/L (45-117); Anion Gap 12 (5-15); BUN 81 mg/dL (7-18); Calcium,Total 9.2 mg/dL (8.5-10.1); Chloride 110 mmol/L (98-107); Cholesterol 133 mg/dL (200); EST Glomerular Filtration Rate 18 mL/min (>60); Est Glom Filt Rate - Afr Amer 22 mL/min (>60); Estimated Creatinine Clearance 16.08 ml/min; Globulin 3.5 g/dL (2.2-4.2); Glucose 107 mg/dL (74-106); High Density Lipoprotein 55 mg/dL; Phosphorus 3.6 mg/dL (2.5-4.9); Protein, Total 6.9 g/dL (6.4-8.2); Sodium Level 144 mmol/L (136-145); Triglycerides 84 mg/dL; Very Low Density Lipoprotein 17 mg/dL (5-40)
[2018-09-14 14:05] LABS: Hemoglobin A1c 6.3 % (4.2-6.3)
== END ==
PROVIDERS: Referring Provider Internal Medicine Nephrology; Visit Provider Internal Medicine Nephrology
DX: N18.4 Chronic kidney disease, stage 4 (severe) (principal); D63.1 Anemia in chronic kidney disease; E11.65 Type 2 diabetes mellitus with hyperglycemia; Z79.899 Other long term (current) drug therapy; I10 Essential (primary) hypertension; E78.2 Mixed hyperlipidemia
CPT/HCPCS: 36415; 80053; 80061; 83036; 84100; 85027; 96372; J0885

== ENCOUNTER → 2018-09-28 11:23 | Outpatient (CLI) | payer MEDICARE, OTHER, SELFPAY ==
[2018-09-14 11:32] VITALS: BMI 42.7
[2018-09-28 11:55] LABS: Hematocrit 32.8 % (37-47); Hemoglobin 10.3 g/dl (12.0-15.0)
[2018-09-28 12:26] VITALS: BP 125/42; PULSE 40; RESP 16; O2SAT 95; BMI 42.7
== END ==
PROVIDERS: Referring Provider Internal Medicine Nephrology; Visit Provider Internal Medicine Nephrology
DX: N18.4 Chronic kidney disease, stage 4 (severe) (principal); D63.1 Anemia in chronic kidney disease
CPT/HCPCS: 36415; 85014; 85018; 96372; J0885

== ENCOUNTER → 2018-10-09 07:18 | Outpatient (CLI) | payer MEDICARE, OTHER, SELFPAY ==
[2018-09-28 12:26] VITALS: BMI 42.7
--- NOTE | 2018-10-09 10:16 | NEURO_ITS ---
NCS and/or EMG Patient Report Ordering Doctor: Sly Pedersen DATE OF SERVICE: 10/09/18 This is a bilateral upper extremity nerve conduction study performed on this 78-year-old female with a history of numbness tingling burning and pain in her hands bilaterally worse on the left. The patient is right-handed. Symptoms bee n present for 6 months. Bilateral upper extremity sensory and motor nerve conduction studies are performed. The median motor and sensory responses are abnormal. The motor distal latencies are severely prolonged more so on the right side, the right side also demonstrates severe diminished amplitudes and conduction velocities. To a lesser extent the amplitudes and conduction velocities are diminished on the left side. The sensory responses from the median sensory nerves are absent bilaterally. Ulnar motor and sensory and radial sensory responses are normal. Median F waves are prolonged. EMG testing was deferred due to classic elective physiologic findings. Impression: Abnormal nerve conduction study of the bilateral upper extremities consistent with severe carpal tunnel syndrome bilaterally, electrically somewhat worse on the right side.
--- OUTSIDE RECORDS SUMMARY | 2018-12-11 07:34 | XMS RPT_ITS ---
:1940 Author Organization [place] Support Name Relationship Address Phone REGGIE RYAN SLEEK FUNER Unavailable [address] [facility] + [place] [address] BETTE THOMASYL Unavailable [address] + [place] [address] REGGIE DOYLEHAM SLEEK FUNER Unavailable [address] [facility] + [place] [address] BETTE THOMASYL Unavailable [address] + [place] [address] REGGIE YANIRAHAM SLEEK FUNER Unavailable [address] [facility] + [place] [address] BETTE THOMASYL Unavailable [address] + [place] [address] REGGIE BRADHAM SLEEK FUNER Unavailable [address] + [place] [address] MARTHA JANINE Unavailable [address] + [place] [address] REGGIE YANIRAHAM SLEEK FUNER Unavailable [address] [facility] + [place] [address] BETTE THOMASYL Unavailable [address] + [place] [address] REGGIE BRADHAM SLEEK FUNER Unavailable [address] + [place] [address] MARTHA JANINE Unavailable [address] + [place] [address] REGGIE BRADHAM SLEEK FUNER Unavailable [address] [facility] + [place] [address] YOUNG, JANINE Unavailable [address] + [place] [address] REGGIE BRADHAM SLEEK FUNER Unavailable [address] [facility] + [place] [address] MARTHA, JANINE Unavailable [address] + [place] [address] REGGIE BRADHAM SLEEK FUNER Unavailable [address] [facility] + [place] [address] YOUNG, JANINE Unavailable [address] + [place] [address] REGGIE BRADHAM SLEEK FUNER Unavailable [address] [facility] + [place] [address] MARTHA, JANINE Unavailable [address] + [place] [address] REGGIE BRADHAM SLEEK FUNER Unavailable [address] [facility] + [place] [address] MARTHA, JANINE Unavailable [address] + [place] [address] REGGIE BRADHAM SLEEK FUNER Unavailable [address] [place] [address] + [place] [address] MARTHA, JANINE Unavailable [address] + [place] [address] REGGIE BRADHAM SLEEK FUNER Unavailable [address] [facility] + [place] [address] MARTHA JANINE Unavailable [address] + [place] [address] REGGIE BRADHAM SLEEK FUNER Unavailable [address] [facility] + [place] [address] YOUNG JANINE Unavailable [address] + [place] [address] REGGIE BRADHAM SLEEK FUNER Unavailable [address] [facility] + [place] [address] MARTHA NICHOLAS Unavailable [address] + [place] [address] REGGIE BRADHAM SLEEK FUNER Unavailable [address] [place] [address] + [place] [address] YOUNG, NICHOLAS Unavailable [address] + [place] [address] REGGIE BRADHAM SLEEK FUNER Unavailable [address] [facility] + [place] [address] MARTHA NICHOLAS Unavailable [address] + [place] [address] REGGIE BRADHAM SLEEK FUNER Unavailable [address] [facility] + [place] [address] YOUNG, NICHOLAS Unavailable [address] + [place] [address] REGGIE BRADHAM SLEEK FUNER Unavailable [address] [facility] + [place] [address] MARTHA NICHOLAS Unavailable [address] + [place] [address] REGGIE BRADHAM SLEEK FUNER Unavailable [address] [facility] + [place] [address] MARTHA NICHOLAS Unavailable [address] + [place] [address] REGGIE BRADHAM SLEEK FUNER Unavailable [address] [place] [address] + [place] [address] MARTHA NICHOLAS Unavailable [address] + [place] [address] REGGIE BRADHAM SLEEK FUNER Unavailable [address] [place] [address] + [place] [address] MARTHA NICHOLAS Unavailable [address] + [place] [address] REGGIE BRADHAM SLEEK FUNER Unavailable [address] [facility] + [place] [address] YOUNG NICHOLAS Unavailable [address] + [place] [address] REGGIE BRADHAM SLEEK FUNER Unavailable [address] [place] [address] + [place] [address] YOUNG NICHOLAS Unavailable [address] + [place] [address] REGGIE BRADHAM SLEEK FUNER Unavailable [address] [facility] + [place] [address] BETTE THOMASRYL Unavailable [address] + [place] [address] REGGIE RYAN SLEEK FUNER Unavailable [address] [facility] + [place] [address] BETTE THOMASRYL Unavailable [address] + [place] [address] REGGIERUTH RYAN SLEEK FUNER Unavailable [address] [facility] + [place] [address] MARTHA NICHOLAS Unavailable [address] + [place] [address] REGGIE RYAN SLEEK FUNER Unavailable [address] [facility] + [place] [address] BETTE THOMASRYL Unavailable [address] + [place] [address] Care Team Providers Name Role Phone Sly Pedersen Primary Care Unavailable Sushil Odonnell Admitting Unavailable Sushil Odonnell Attending Unavailable Jefry Navarrete Admitting Unavailable Jefry Navarrete Attending Unavailable Sly Pedersen Primary Care Unavailable Bakhous, Aziz Attending Unavailable Bakchristophers, Aziz Referring Unavailable Sly Pedersen Primary Care Unavailable Bakchristophers, Aziz Attending Unavailable Bakchristophers, Aziz Referring Unavailable Sly Pedersen Primary Care Unavailable Tanphaichitr, Natthavat Attending Unavailable Sly Pedersen Primary Care Unavailable Bakhous, Aziz Attending Unavailable Megans, Aziz Referring Unavailable Sly Pedersen Primary Care Unavailable Sly Pedersen Attending Unavailable Sly Pedersen Referring Unavailable Sly Pedersen Primary Care Unavailable Megans, Aziz Attending Unavailable Megans, Aziz Referring Unavailable Sly Pedersen Primary Care Unavailable Tanphaichitr, Natthavat Attending Unavailable Tanphaichitr, Natthavat Referring Unavailable Sly Pedersen Primary Care Unavailable Tanphaichitr, Natthavat Attending Unavailable Tanphaichitr, Natthavat Referring Unavailable Sly Pedersen Primary Care Unavailable Tanphaichitr, Natthavat Attending Unavailable Tanphaichitr, Natthavat Referring Unavailable Sly Pedersen Primary Care Unavailable Tanphaichitr, Natthavat Attending Unavailable Tanphaichitr, Natthavat Referring Unavailable Slava Sly Primary Care Unavailable ZEV PEPE Attending Unavailable [...] Unavailable Pedersen Sly Primary Care Unavailable Bakhous, Dariniz Attending Unavailable [...] Referring Unavailable Pedersen Sly Primary Care Unavailable PROBLEMS PROBLEMS DATE TYPE CONDITION / CODE ATTENDING STATUS SOURCE Unknown E11.65 - Type 2 diabetes Aziza Haji Active [place] 8 mellitus with Community hyperglycemia / Hospital E11.65(ICD-10) Repository Unknown D64.9 - Anemia, Aziza Haji Active [place] [facility] unspecified / Community D64.9(ICD-10) Hospital Repository Unknown D63.1 - Anemia in Aziza Haji Active [place] 8 chronic kidney disease / Community D63.1(ICD-10) Hospital Repository Unknown N18.4 - Chronic kidney Aziza Haji Active [place] 8 disease, stage 4 Community (severe) / N18.4(ICD-10) Hospital Repository Unknown 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 / Hospital N25.81(ICD-10) Repository Unknown E78.2 - Mixed ZEV PEPE Active [place] 8 hyperlipidemia / Community E78.2(ICD-10) Hospital Repository Unknown I10 - Essential ZEV PEPE Active [place] 8 (primary) hypertension / Community I10(ICD-10) Hospital Repository PROCEDURES PROCEDURES No Procedure Records FoundRESULTS RESULTS CBC-COMPLETE BLOOD CNT Collected: 10/12/2018 Status: F Source: [place] NO DIFF 11:28 AM [facility] TYPE CODE TESTS RESULT OUT OF RANGE REFERENCE UNITS LAB L100.1000 4.4-11.0 K/mm3 Normal WBC 8.0 LAB L100.1200 4.2-5.4 M/mm3 Low RBC 3.32 LAB L100.1300 12.0-15.0 g/dl Low HGB 10.5 LAB L100.1400 37-47 % Low HCT 33.9 LAB L100.1500 81-99 fL High MCV 102.1 LAB L100.1600 27.0-32.0 pg Normal MCH 31.6 LAB L100.1700 32-36 g/gl Low MCHC 31.0 LAB L100.1810 11.6-14.6 % Normal RDW CV 14.1 LAB L100.1820 35.1-43.9 fl High RDW SD 53.2 LAB L100.1900 150-450 K/mm3 Normal PLT 257 LAB L100.2000 6.2-12.0 fl Normal MPV 9.6 Performed By: #### L100.0500 #### [facility] [address] [place], [address] RENAL PROFILE Collected: 10/12/2018 Status: F Source: [place] 11:28 AM [facility] REPOSITORY TYPE CODE TESTS RESULT OUT OF RANGE REFERENCE UNITS LAB L501.0100 74-106 mg/dL Normal GLU 97 Result Comment: Please note revised GLUCOSE reference range effective 2017. LAB L501.1000 7-18 mg/dL High BUN 66 LAB L501.1100 0.55-1.02 mg/dL High CREAT,SERUM 2.66 Result Comment: The validity of the calculated GFR AND GFRAA in patients over 70 years has not been determined. Clinical correlation is essential. LAB L501.1110 >60 mL/min Low EST GFR 18 Result Comment: Non- GFR Calc LAB L501.1115 >60 mL/min Low EST GFR - AA 22 Result Comment: GFR Calc LAB L501.1300 10-20 RATIO High BUN/CRE 24.8 LAB L501.1800 3.2-5.0 g/dL Normal ALB 3.2 LAB L501.2200 8.5-10.1 mg/dL CA Normal 8.5 LAB L501.2300 2.5-4.9 mg/dL Normal PHOS 3.4 LAB L501.5300 136-145 mmol/L NA Normal 145 LAB L501.5600 3.5-5.1 mmol/L K Normal 3.5 LAB L501.5900 98-107 mmol/L High CL 112 LAB L501.6100 21.0-32.0 mmol/L Normal CO2 24.0 Performed By: #### L500.3600, L503.6075, L503.6150, L503.6550 #### [facility] [address] [place], [address] IRON BINDING Collected: 10/12/2018 Status: F Source: [place] CAPACITY,TOTAL 11:28 AM [facility] REPOSITORY TYPE CODE TESTS RESULT OUT OF RANGE REFERENCE UNITS LAB L503.6075 250-450 ug/dL Low TIBC 232 Performed By: #### L500.3600, L503.6075, L503.6150, L503.6550 #### [facility] [address] [facility] [place], [address] IRON Collected: 10/12/2018 Status: F Source: [place] 11:28 AM [facility] REPOSITORY TYPE CODE TESTS RESULT OUT OF RANGE REFERENCE UNITS LAB L503.6150 50-170 ug/dL Normal IRON 55 Performed By: #### L500.3600, L503.6075, L503.6150, L503.6550 #### [facility] [address], [address] FERRITIN Collected: 10/12/2018 Status: F Source: [place] 11:28 AM [facility] REPOSITORY TYPE CODE TESTS RESULT OUT OF RANGE REFERENCE UNITS LAB L503.6550 8-252 ng/mL Normal FERRITIN 100 Performed By: #### L500.3600, L503.6075, L503.6150, L503.6550 #### [facility] [address] [place], [address] NCS AND/OR EMG Observed: 10/10/2018 Status: F Source: [place] PATIENT 9:55 AM [facility] REPOSITORY [facility] Pulmonary Services/Neurology [address] [place] [address] MR#: [id number] Acct: [id number] Name: MONY WORLEY Rep #: [id number] : 1940 78 From: Jaime Prieto MD Referring Dr: Sly Pedersen MD Status: REG CLI Ordering Dr: Date: Location: [facility] Sex: F C NCS and/or EMG Patient [...] MD Date Dictated: 10/09/18 1014 Date Transcribed: 10/09/18 1014 [employer] Tutor: NF Signed HH, HEMOGLOBIN AND Collected: 09/28/2018 Status: F Source: [place] HEMATOCRIT 11:43 AM [facility] REPOSITORY TYPE CODE TESTS RESULT OUT OF RANGE REFERENCE UNITS LAB L100.1300 12.0-15.0 g/dl Low HGB 10.3 LAB L100.1400 37-47 % Low HCT 32.8 Performed By: #### L100.0600 #### [facility] [address] [place], [address] CBC-COMPLETE BLOOD CNT Collected: 09/14/2018 Status: F Source: [place] NO DIFF 11:26 AM [facility] REPOSITORY Order Comment: DR HAJI ORDERED RENAL [...] MPV 10.2 Performed By: #### L100.0500 #### [facility] [place], [address] COMPREHENSIVE METABOLIC Collected: 09/14/2018 Status: F Source: [place] RODRÍGUEZ 11:26 AM [facility] REPOSITORY Order Comment: DR HAJI ORDERED RENAL [...] Performed By: #### L500.4050, L500.4100, L501.2300 #### [facility] [address] [place], [place], [address] LIPID PROFILE Collected: 09/14/2018 Status: F Source: [place] 11:26 AM [facility] REPOSITORY Order Comment: DR HAJI ORDERED RENAL [...] Performed By: #### L500.4050, L500.4100, L501.2300 #### [facility] [address] [place], [place], [address] PHOSPHORUS Collected: 09/14/2018 Status: F Source: [place] 11:26 AM [facility] REPOSITORY Order Comment: DR HAJI ORDERED RENAL CBC DR PEPE ORDERED A1C LIPID CMP TYPE CODE TESTS RESULT OUT OF RANGE REFERENCE UNITS LAB L501.2300 2.5-4.9 mg/dL Normal PHOS 3.6 Performed By: #### L500.4050, L500.4100, L501.2300 #### [facility] [address] [place], [address] HEMOGLOBIN A1C Collected: 09/14/2018 Status: F Source: [place] 11:26 AM [facility] REPOSITORY Order Comment: DR HAJI ORDERED RENAL CBC DR PEPE ORDERED A1C LIPID CMP TYPE CODE TESTS RESULT OUT OF RANGE REFERENCE UNITS LAB L501.9985 4.2-6.3 % Normal HGB A1C 6.3 Performed By: #### L501.9985 #### [facility] [address] [facility] [place], [address] HH, HEMOGLOBIN AND Collected: 08/31/2018 Status: F Source: [place] HEMATOCRIT 11:18 AM [facility] REPOSITORY TYPE CODE TESTS RESULT OUT OF RANGE REFERENCE UNITS LAB L100.1300 12.0-15.0 g/dl Low HGB 10.3 LAB L100.1400 37-47 % Low HCT 33.7 Performed By: #### L100.0600 #### [facility] [address] [facility] [place], [address] CBC W/DIFF, AUTOMATED Collected: 08/16/2018 Status: F Source: [place] 11:38 AM [facility] REPOSITORY TYPE CODE TESTS RESULT OUT OF [...] Lymph 1.39 Performed By: #### L100.0100 #### [facility] [address] [place], [place], [address] RENAL PROFILE Collected: 08/16/2018 Status: F Source: [place] 11:38 AM [facility] REPOSITORY TYPE CODE TESTS RESULT OUT OF [...] CO2 27.0 Performed By: #### L500.3600 #### [facility] [address] [place], [place], [address] HH, HEMOGLOBIN AND Collected: 08/03/2018 Status: F Source: [place] HEMATOCRIT 11:20 AM [facility] REPOSITORY TYPE CODE TESTS RESULT OUT OF RANGE REFERENCE UNITS LAB L100.1300 12.0-15.0 g/dl Low HGB 10.2 LAB L100.1400 37-47 % Low HCT 33.6 Performed By: #### L100.0600 #### [facility] [address] [facility] [place], [address] CBC-COMPLETE BLOOD CNT Collected: 07/20/2018 Status: F Source: [place] NO DIFF 11:20 AM [facility] REPOSITORY TYPE CODE TESTS RESULT OUT OF [...] MPV 10.4 Performed By: #### L100.0500 #### [facility] [address] [place], [place], [address] URINALYSIS, ROUTINE Collected: 07/20/2018 Status: F Source: [place] (DIPSTICK) 11:20 AM [facility] REPOSITORY Order Comment: How was Urine Obtained? [...] LEUK Normal ESTERASE Negative Performed By: #### L400.2011 #### [facility] [address] [place], [place], [address] RENAL PROFILE Collected: 07/20/2018 Status: F Source: [place] 11:20 AM [facility] REPOSITORY TYPE CODE TESTS RESULT OUT OF [...] CO2 24.0 Performed By: #### L500.3600 #### [facility] [address] [facility] [place], [address] PTHIN Collected: 07/20/2018 Status: F Source: [place] 11:20 AM [facility] REPOSITORY TYPE CODE TESTS RESULT OUT OF RANGE REFERENCE UNITS LAB L509.1000 18.4-80.1 pg/mL High PTHIN 185.0 Performed By: #### L509.1000 #### [facility] [address] [facility]. [place], [place], [address] VITAMIN D,25 HYDROXY Collected: 07/20/2018 Status: F Source: [place] 11:20 AM [facility] REPOSITORY TYPE CODE TESTS RESULT OUT OF REFERENCE UNITS RANGE LAB L506.1000 29.95-100.01 ng/mL Low Vitamin D 15.9 25-[place] Result Comment: Vitamin D 25(OH) Status Range Deficiency <20 ng/mL (50nmol/L) Insuffciency 20 - 30 ng/mL (50 - 75 nmol/L) Sufficiency 30 - 100 ng/mL (75 - 250 nmol/L) Toxicity >100 ng/mL (>250 nmol/L) Performed By: #### L506.1000 #### [facility] [address] [facility] [facility] [place], [address] PROTEIN+CREATININE Collected: Status: F Source: [place] RATIO,URINE 07/20/2018 11:20 AM [facility] REPOSITORY TYPE CODE TESTS RESULT OUT OF RANGE REFERENCE UNITS LAB L501.1200 NO RANGE EST. mg/dL 40.40 Normal UR CREAT LAB L501.1930 <11.9 mg/dL < 6.0 Normal PROTEIN,UR. RAN. LAB L501.1940 0-200 mg/g CRE Test Normal not performed PROT:CRE RATIO Performed By: #### L501.0900, L502.0250 #### [facility] [address] [place], [address] MICROALB:CREAT Collected: 07/20/2018 Status: F Source: [place] RATIO,RANDOM UR 11:20 AM [facility] REPOSITORY TYPE CODE TESTS RESULT OUT OF RANGE REFERENCE UNITS LAB L502.0500 NO RANGE EST. mg/L Normal 6.2 MICROALBUMIN ,UR LAB L502.0600 <30 mg/g CRE mg/g CRE Normal 15.4 MALB:CREAT Performed By: #### L501.0900, L502.0250 #### [facility] [address] [place], [place], [address] HH, HEMOGLOBIN AND Collected: 07/06/2018 Status: F Source: [place] HEMATOCRIT 7:48 AM [facility] REPOSITORY TYPE CODE TESTS RESULT OUT OF RANGE REFERENCE UNITS LAB L100.1300 12.0-15.0 g/dl Low HGB 9.8 LAB L100.1400 37-47 % Low HCT 31.7 Performed By: #### L100.0600 #### [facility] [address] [facility] [place], [address] CBC-COMPLETE BLOOD CNT Collected: 06/22/2018 Status: F Source: [place] NO DIFF 11:21 AM [facility] REPOSITORY TYPE CODE TESTS RESULT OUT OF [...] MPV 9.6 Performed By: #### L100.0500 #### [facility] [address] [place], [address] RENAL PROFILE Collected: 06/22/2018 Status: F Source: [place] 11:21 AM [facility] REPOSITORY TYPE CODE TESTS RESULT OUT OF [...] CO2 26.0 Performed By: #### L500.3600 #### [facility] [address] [place], [address] HH, HEMOGLOBIN AND Collected: 06/08/2018 Status: F Source: [place] HEMATOCRIT 11:45 AM [facility] REPOSITORY TYPE CODE TESTS RESULT OUT OF RANGE REFERENCE UNITS LAB L100.1300 12.0-15.0 g/dl Low HGB 9.8 LAB L100.1400 37-47 % Low HCT 31.3 Performed By: #### L100.0600 #### [facility] [address] [place], [address] HEMOGLOBIN A1C Collected: 06/08/2018 Status: F Source: [place] 11:45 AM [facility] REPOSITORY Order Comment: Comments: DR. PEPE FAX [phone] TYPE CODE TESTS RESULT OUT OF RANGE REFERENCE UNITS LAB L501.9985 4.2-6.3 % High HGB A1C 6.4 Performed By: #### L501.9985 #### [facility] [address], [address] BASIC METABOLIC Collected: 06/08/2018 Status: F Source: [place] PROFILE (BMP) 11:45 AM [facility] REPOSITORY Order Comment: Comments: DR. PEPE FAX [phone] Comments: DR. PEPE FAX [phone] TYPE CODE TESTS RESULT OUT OF RANGE [...] Performed By: #### L500.2500, L501.9520, L506.0400 #### [facility] [address] [place], [address] THYROID STIM HORMONE Collected: 06/08/2018 Status: F Source: [place] (TSH) 11:45 AM [facility] REPOSITORY Order Comment: Comments: DR. PEPE FAX [phone] Comments: DR. PEPE FAX [phone] TYPE CODE TESTS RESULT OUT OF RANGE REFERENCE UNITS LAB L501.9520 0.358-3.74 uIU/mL Normal TSH 0.93 Performed By: #### L500.2500, L501.9520, L506.0400 #### [facility] [address] [facility] [place], [place], [address] T4 FREE DIRECT Collected: 06/08/2018 Status: F Source: [place] 11:45 AM [facility] REPOSITORY Order Comment: Comments: DR. PEPE FAX [phone] Comments: DR. PEPE FAX [phone] TYPE CODE TESTS RESULT OUT OF RANGE REFERENCE UNITS LAB L506.0400 0.76-1.46 ng/dL Normal T4 FREE 1.04 DIRECT Performed By: #### L500.2500, L501.9520, L506.0400 #### [facility] [address] [place], [place], [address] CBC-COMPLETE BLOOD CNT Collected: 05/25/2018 Status: F Source: [place] NO DIFF 11:20 AM [facility] REPOSITORY TYPE CODE TESTS RESULT OUT OF [...] MPV 10.1 Performed By: #### L100.0500 #### [facility] [address] [place], [address] RENAL PROFILE Collected: 05/25/2018 Status: F Source: [place] 11:20 AM [facility] REPOSITORY Order Comment: PLEASE ADD FE GIGI [...] By: #### L500.3600, L503.6075, L503.6150, L503.6550 #### [facility] [address] [place], [address] IRON BINDING Collected: 05/25/2018 Status: F Source: [facility] 11:20 AM [facility] REPOSITORY Order Comment: PLEASE ADD FE GIGI TIBC TO BLOOD FROM EARLIER TODAY TYPE CODE TESTS RESULT OUT OF RANGE REFERENCE UNITS LAB L503.6075 250-450 ug/dL Normal TIBC 267 Performed By: #### L500.3600, L503.6075, L503.6150, L503.6550 #### [facility] [address] [place], [address] IRON Collected: 05/25/2018 Status: F Source: [place] 11:20 AM [facility] REPOSITORY Order Comment: PLEASE ADD FE GIGI TIBC TO BLOOD FROM EARLIER TODAY TYPE CODE TESTS RESULT OUT OF RANGE REFERENCE UNITS LAB L503.6150 50-170 ug/dL Normal IRON 88 Performed By: #### L500.3600, L503.6075, L503.6150, L503.6550 #### [facility] [address] [place], [address] FERRITIN Collected: 05/25/2018 Status: F Source: [place] 11:20 AM [facility] REPOSITORY Order Comment: PLEASE ADD FE GIGI TIBC TO BLOOD FROM EARLIER TODAY TYPE CODE TESTS RESULT OUT OF RANGE REFERENCE UNITS LAB L503.6550 8-252 ng/mL Normal FERRITIN 118 Performed By: #### L500.3600, L503.6075, L503.6150, L503.6550 #### [facility] [address] [place], [address] VITAMIN D,25 HYDROXY Collected: 05/25/2018 Status: F Source: [place] 11:20 AM [facility] REPOSITORY TYPE CODE TESTS RESULT OUT OF REFERENCE UNITS RANGE LAB L506.1000 29.95-100.01 ng/mL Low Vitamin D 13.8 25-OH Result Comment: Vitamin D 25(OH) Status Range Deficiency <20 ng/mL (50nmol/L) Insuffciency 20 - 30 ng/mL (50 - 75 nmol/L) Sufficiency 30 - 100 ng/mL (75 - 250 nmol/L) Toxicity >100 ng/mL (>250 nmol/L) Performed By: #### L506.1000 #### [facility] [address] [place], [address] PTHIN Collected: 05/25/2018 Status: F Source: [place] 11:20 AM [facility] REPOSITORY TYPE CODE TESTS RESULT OUT OF RANGE REFERENCE UNITS LAB L509.1000 18.4-80.1 pg/mL Normal PTHIN 25.6 Performed By: #### L509.1000 #### [facility] [address] [facility] [place], [address] URINALYSIS, ROUTINE Collected: 05/25/2018 Status: F Source: [place] (DIPSTICK) 11:20 AM [facility] REPOSITORY Order Comment: How was Urine Obtained? [...] 25 ESTERASE Performed By: #### L400.2010 #### [facility] [address], [address] PROTEIN+CREATININE Collected: Status: F Source: [place] RATIO,URINE 05/25/2018 11:20 AM [facility] REPOSITORY TYPE CODE TESTS RESULT OUT OF RANGE REFERENCE UNITS LAB L501.1200 NO RANGE EST. mg/dL Normal UR CREAT 58.70 LAB L501.1930 <11.9 mg/dL Normal < 6.0 PROTEIN,UR.R AN. LAB L501.1940 0-200 mg/g CRE Normal PROT:CRE 99 RATIO Performed By: #### L501.0900, L502.0500 #### [facility] [address], [address] MICROALBUMIN,RANDOM URINE Collected: Status: F Source: [place] 05/25/2018 11:20 AM [facility] REPOSITORY TYPE CODE TESTS RESULT OUT OF RANGE REFERENCE UNITS LAB L502.0500 NO RANGE EST. mg/L Normal 6.5 MICROALBUMIN ,UR Performed By: #### L501.0900, L502.0500 #### [facility] [address] [facility] [place], [address] HH, HEMOGLOBIN AND Collected: 05/11/2018 Status: F Source: [facility] HEMATOCRIT 8:25 AM [facility] REPOSITORY TYPE CODE TESTS RESULT OUT OF RANGE REFERENCE UNITS LAB L100.1300 12.0-15.0 g/dl Low HGB 10.4 LAB L100.1400 37-47 % Low HCT 32.1 Performed By: #### L100.0600 #### [facility] [address] [facility] [place], [address] RENAL PROFILE Collected: 05/11/2018 Status: F Source: [facility] 8:25 AM [facility] REPOSITORY TYPE CODE TESTS RESULT OUT OF [...] CO2 23.0 Performed By: #### L500.3600 #### [facility] [address] [place], [place] [address], [address] CBC W/DIFF, AUTOMATED Collected: 04/27/2018 Status: F Source: [place] 11:28 AM [facility] REPOSITORY TYPE CODE TESTS RESULT OUT OF [...] Lymph 1.66 Performed By: #### L100.0100 #### [facility] [address] [facility] [place], [place], [address] HH, HEMOGLOBIN AND Collected: 04/13/2018 Status: F Source: [place] HEMATOCRIT 11:23 AM [facility] REPOSITORY TYPE CODE TESTS RESULT OUT OF RANGE REFERENCE UNITS LAB L100.1300 12.0-15.0 g/dl Low HGB 10.6 LAB L100.1400 37-47 % Low HCT 33.6 Performed By: #### L100.0600 #### [facility] [address] [facility]. [place], [place], [address] RENAL PROFILE Collected: 04/13/2018 Status: F Source: [place] 11:23 AM [facility] REPOSITORY TYPE CODE TESTS RESULT OUT OF [...] CO2 25.0 Performed By: #### L500.3600 #### [facility] [address] [place], [address] COMPREHENSIVE METABOLIC Collected: 03/30/2018 Status: F Source: [facility] 11:45 AM [facility] REPOSITORY TYPE CODE TESTS RESULT OUT OF [...] GAP 9 Performed By: #### L500.4050 #### [facility] [address] [place], [place], [address] HEMOGLOBIN A1C Collected: 03/30/2018 Status: F Source: [place] 11:45 AM [facility] REPOSITORY TYPE CODE TESTS RESULT OUT OF RANGE REFERENCE UNITS LAB L501.9985 4.2-6.3 % Normal HGB A1C 5.9 Performed By: #### L501.9985 #### [facility] [address] [place], [address] CBC W/DIFF, AUTOMATED Collected: 03/30/2018 Status: F Source: [place] 11:37 AM [facility] REPOSITORY TYPE CODE TESTS RESULT OUT OF [...] LYMPHOPENIA NOTED Performed By: #### L100.0100 #### [facility] [address] [place], [place], [address] HH, HEMOGLOBIN AND Collected: 03/16/2018 Status: F Source: [place] [facility]EMATOCRIT 11:28 AM [facility] REPOSITORY TYPE CODE TESTS RESULT OUT OF RANGE REFERENCE UNITS LAB L100.1300 12.0-15.0 g/dl Low HGB 10.0 LAB L100.1400 37-47 % Low HCT 31.6 Performed By: #### L100.0600 #### [facility] [address] [place], [address] RENAL PROFILE Collected: 03/16/2018 Status: F Source: [place] 11:28 AM [facility] REPOSITORY TYPE CODE TESTS RESULT OUT OF [...] CO2 23.0 Performed By: #### L500.3600 #### [facility] [address] [place], [address] CBC-COMPLETE BLOOD CNT Collected: 03/02/2018 Status: F Source: [place] NO DIFF 11:26 AM [facility] REPOSITORY TYPE CODE TESTS RESULT OUT OF [...] MPV 9.7 Performed By: #### L100.0500 #### [facility] [address] [place], [address] PROTEIN+CREATININE Collected: Status: F Source: [facility],URINE 02/16/2018 7:58 AM [facility] REPOSITORY TYPE CODE TESTS RESULT OUT OF RANGE REFERENCE UNITS LAB L501.1200 NO RANGE EST. mg/dL Normal UR CREAT 78.40 LAB L501.1930 <11.9 mg/dL High 13.0 PROTEIN,UR.R AN. LAB L501.1940 0-200 mg/g CRE Normal PROT:CRE 166 RATIO Performed By: #### L501.0900 #### [facility] [address] [place], [place], [address] CBC W/DIFF, AUTOMATED Collected: 02/16/2018 Status: F Source: [place] 7:45 AM [facility] REPOSITORY TYPE CODE TESTS RESULT OUT OF [...] #### L100.0100, L500.3600, L501.5200, L503.6030, L506.0250 #### [facility] [address] [place], [address] RENAL PROFILE Collected: 02/16/2018 Status: F Source: [place] 7:45 AM [facility] REPOSITORY TYPE CODE TESTS RESULT OUT OF [...] #### L100.0100, L500.3600, L501.5200, L503.6030, L506.0250 #### [facility] [address] [facility]. [place], [place], [id number] MAGNESIUM Collected: 02/16/2018 Status: F Source: [place] 7:45 AM [facility] REPOSITORY TYPE CODE TESTS RESULT OUT OF RANGE REFERENCE UNITS LAB L501.5200 1.6-2.6 mg/dL Normal MG 1.7 Performed By: #### L100.0100, L500.3600, L501.5200, L503.6030, L506.0250 #### [facility] [address] [facility] [place], [place], [id number] IRON+IRON BINDING Collected: 02/16/2018 Status: F Source: [facility] 7:45 AM [facility] REPOSITORY TYPE CODE TESTS RESULT OUT OF RANGE REFERENCE UNITS LAB L503.6075 250-450 ug/dL Low TIBC 231 LAB L503.6150 50-170 ug/dL IRON Normal 66 LAB L503.6250 15.0-55.0 % IRON Normal SATURATION 28.6 Performed By: #### L100.0100, L500.3600, L501.5200, L503.6030, L506.0250 #### [facility] [address] [facility] [place], [place], [id number] FOLATES, (FOLIC ACID) Collected: 02/16/2018 Status: F Source: [place] 7:45 AM [facility] REPOSITORY TYPE CODE TESTS RESULT OUT OF RANGE REFERENCE UNITS LAB L506.0250 3.1-55.4 ng/mL Normal FOLATES 11.10 Performed By: #### L100.0100, L500.3600, L501.5200, L503.6030, L506.0250 #### [facility] [address] [place], [address] VITAMIN B12 Collected: 02/16/2018 Status: F Source: [place] 7:45 AM [facility] REPOSITORY TYPE CODE TESTS RESULT OUT OF RANGE REFERENCE UNITS LAB L503.0105 211-911 pg/mL Normal Vitamin B12 224 Performed By: #### L503.0105, L506.1000 #### [facility] [address] [place], [address] VITAMIN D,25 HYDROXY Collected: 02/16/2018 Status: F Source: [place] 7:45 [facility] REPOSITORY TYPE CODE TESTS RESULT OUT OF REFERENCE UNITS RANGE LAB L506.1000 29.95-100.01 ng/mL Low Vitamin D 14.9 25-[place] Result Comment: Vitamin D 25(OH) Status Range Deficiency <20 ng/mL (50nmol/L) Insuffciency 20 - 30 ng/mL (50 - 75 nmol/L) Sufficiency 30 - 100 ng/mL (75 - 250 nmol/L) Toxicity >100 ng/mL (>250 nmol/L) Performed By: #### L503.0105, L506.1000 #### [facility] [address] [place], [address] PTHIN Collected: 02/16/2018 Status: F Source: [place] 7:45 AM [facility] REPOSITORY TYPE CODE TESTS RESULT OUT OF RANGE REFERENCE UNITS LAB L509.1000 18.4-80.1 pg/mL Normal PTHIN 69.0 Performed By: #### L509.1000 #### [facility] [address] [place], [address] CBC-COMPLETE BLOOD CNT Collected: 02/02/2018 Status: F Source: [place] NO DIFF 7:20 AM [facility] REPOSITORY TYPE CODE TESTS RESULT OUT OF [...] MPV 10.3 Performed By: #### L100.0500 #### [facility] [place], [address] RENAL PROFILE Collected: 01/19/2018 Status: F Source: [place] 7:24 AM [facility] REPOSITORY Order Comment: Has pt arrived? Y [...] CO2 22.0 Performed By: #### L500.3600 #### [facility] [address] [facility] [place], [place], [address] HH, HEMOGLOBIN AND Collected: 01/19/2018 Status: F Source: [place] [facility] 7:24 AM [facility] REPOSITORY Order Comment: Has pt arrived? Y TYPE CODE TESTS RESULT OUT OF RANGE REFERENCE UNITS LAB L100.1300 12.0-15.0 g/dl Low HGB 9.9 LAB L100.1400 37-47 % Low HCT 31.8 Performed By: #### L100.0600 #### [facility] [address] [facility] [place], [place], [address] HH, HEMOGLOBIN AND Collected: 01/05/2018 Status: F Source: [place] [facility] 7:24 AM [facility] REPOSITORY TYPE CODE TESTS RESULT OUT OF RANGE REFERENCE UNITS LAB L100.1300 12.0-15.0 g/dl Low HGB 9.8 LAB L100.1400 37-47 % Low HCT 31.5 Performed By: #### L100.0600 #### [facility] [address] [place], [place], [address] COMPREHENSIVE METABOLIC Collected: 12/30/2017 Status: F Source: [place] 8:21 AM [facility] REPOSITORY TYPE CODE TESTS RESULT OUT OF [...] GAP 9 Performed By: #### L500.4050 #### [facility] [address] [place], [address] HEMOGLOBIN A1C Collected: 12/30/2017 Status: F Source: [place] 8:21 AM [facility] REPOSITORY TYPE CODE TESTS RESULT OUT OF RANGE REFERENCE UNITS LAB L501.9985 4.2-6.3 % Normal HGB A1C 6.0 Performed By: #### L501.9985 #### [facility] [address] [place], [place], [address] CBC-COMPLETE BLOOD CNT Collected: 12/22/2017 Status: F Source: [place] NO DIFF 7:30 AM [facility] REPOSITORY TYPE CODE TESTS RESULT OUT OF [...] MPV 10.1 Performed By: #### L100.0500 #### [facility] [address] [place], [place], [address] RENAL PROFILE Collected: 12/22/2017 Status: F Source: [place] 7:30 AM [facility] REPOSITORY TYPE CODE TESTS RESULT OUT OF [...] CO2 25.0 Performed By: #### L500.3600 #### [facility] [address] [place], [place], [address] HH, HEMOGLOBIN AND Collected: 12/08/2017 Status: F Source: [place] [facility] 7:24 AM [facility] REPOSITORY TYPE CODE TESTS RESULT OUT OF RANGE REFERENCE UNITS LAB L100.1300 12.0-15.0 g/dl Low HGB 10.0 LAB L100.1400 37-47 % Low HCT 32.1 Performed By: #### L100.0600 #### [facility] [address] [place], [address] CBC W/DIFF, AUTOMATED Collected: 11/24/2017 Status: F Source: [place] 7:34 AM [facility] REPOSITORY Order Comment: Comments: COPY ALL RESULTS TO DR. PEDERSEN FAX [phone] TYPE CODE TESTS RESULT OUT OF RANGE [...] By: #### L100.0100, L500.3600, L503.6030, L503.6550 #### [facility] [address] [place], [address] RENAL PROFILE Collected: 11/24/2017 Status: F Source: [place] 7:34 AM [facility] REPOSITORY Order Comment: Comments: COPY ALL RESULTS TO DR. PEDERSEN FAX [phone] Comments: COPY ALL RESULTS TO DR. PEDERSEN FAX [phone] TYPE CODE TESTS RESULT OUT OF RANGE [...] By: #### L100.0100, L500.3600, L503.6030, L503.6550 #### [facility] [address] [facility] [place], [place], [id number] IRON+IRON BINDING Collected: 11/24/2017 Status: F Source: [place] 7:34 AM [facility] REPOSITORY Order Comment: Comments: COPY ALL RESULTS TO DR. PEDERSEN FAX [phone] Comments: COPY ALL RESULTS TO DR. PEDERSEN FAX [phone] TYPE CODE TESTS RESULT OUT OF RANGE REFERENCE UNITS LAB L503.6075 250-450 ug/dL Low TIBC 240 LAB L503.6150 50-170 ug/dL IRON Normal 58 LAB L503.6250 15.0-55.0 % IRON Normal SATURATION 24.2 Performed By: #### L100.0100, L500.3600, L503.6030, L503.6550 #### [facility] [address] [place], [place], [address] FERRITIN Collected: 11/24/2017 Status: F Source: [place] 7:34 AM [facility] REPOSITORY Order Comment: Comments: COPY ALL RESULTS TO DR. PEDERSEN FAX [phone] Comments: COPY ALL RESULTS TO DR. PEDERSEN FAX [phone] TYPE CODE TESTS RESULT OUT OF RANGE REFERENCE UNITS LAB L503.6550 8-252 ng/mL Normal FERRITIN 101 Performed By: #### L100.0100, L500.3600, L503.6030, L503.6550 #### [facility] [address] [place], [place], [address] GLUCOSE POC Collected: 11/20/2017 Status: F Source: [place] 12:13 PM [facility] REPOSITORY TYPE CODE TESTS RESULT OUT OF REFERENCE UNITS RANGE LAB 49586651(LO 70-99 mg/dL INC) High Glucose POC 112 Performed By: #### [id number] #### [facility] POC [address] [place] [address] GLUCOSE POC Collected: 11/20/2017 Status: F Source: [place] 7:24 AM [facility] REPOSITORY TYPE CODE TESTS RESULT OUT OF RANGE REFERENCE UNITS LAB 61022611(LO 70-99 mg/dL INC) Normal Glucose POC 76 Performed By: #### [id number] #### [facility] POC [address] [place] [address] BMP Collected: 11/20/2017 Status: F Source: [place] 6:03 AM [facility] REPOSITORY TYPE CODE TESTS RESULT OUT OF RANGE REFERENCE UNITS LAB 05557843(L 70-99 mg/dL OINC) Low Glucose Lvl 68 LAB 21092731(L 7-18 mg/dL OINC) High BUN 69 LAB 2095482(LO 0.6-1.3 mg/dL INC) High Creatinine 2.3 LAB 35157862(L 5.4-30.0 ratio OINC) Normal BUN/Creat Ratio 30.0 LAB 60534757(L 8.4-10.2 mg/dL OINC) Low Calcium Lvl 8.1 LAB 42197534(L 136-145 mEq/L OINC) Sodium Normal Lvl 143 LAB 09709494(L 3.5-5.1 mEq/L OINC) Normal Potassium Lvl 3.9 LAB 48844277(L 98-107 mEq/L OINC) High Chloride 119 LAB 57586633(L 24.0-30.0 mEq/L OINC) Low CO2 19.2 Performed By: #### [id number] #### [facility] [address] [place] [address] EGFR Collected: 11/20/2017 Status: F Source: [place] 6:03 AM [facility] REPOSITORY Order Comment: Order added by Discern Expert. TYPE CODE TESTS RESULT OUT OF RANGE REFERENCE UNITS LAB 93239339(LO mL/min/1.73 INC) m2 Normal eGFR 21 LAB 01832946(LO mL/min/1.73 INC) m2 Normal eGFR AA 25 Performed By: #### [id number] #### [facility] [address] [place] [address] GLUCOSE POC Collected: 11/19/2017 Status: F Source: [place] 8:34 PM [facility] REPOSITORY TYPE CODE TESTS RESULT OUT OF REFERENCE UNITS RANGE LAB 07644029(LO 70-99 mg/dL INC) High Glucose POC 138 Performed By: #### [id number] #### [facility] P[facility] [address] [place] [address] GLUCOSE POC Collected: 11/19/2017 Status: F Source: [place] 4:31 PM [facility] REPOSITORY TYPE CODE TESTS RESULT OUT OF REFERENCE UNITS RANGE LAB 70337604(LO 70-99 mg/dL INC) High Glucose POC 129 Performed By: #### [id number] #### [facility] POC [address] [place] [address] GLUCOSE POC Collected: 11/19/2017 Status: F Source: [place] 11:44 AM [facility] REPOSITORY TYPE CODE TESTS RESULT OUT OF REFERENCE UNITS RANGE LAB 31020513(LO 70-99 mg/dL INC) High Glucose POC 138 Performed By: #### [id number] #### [facility] POC [address] [place] [address] GLUCOSE POC Collected: 11/19/2017 Status: F Source: [place] 7:31 AM [facility] REPOSITORY TYPE CODE TESTS RESULT OUT OF RANGE REFERENCE UNITS LAB 94956636(LO 70-99 mg/dL INC) Normal Glucose POC 71 Performed By: #### [id number] #### [facility] POC [address] [place] [address] CBC W/ AUTO DIFF Collected: 11/19/2017 Status: F Source: [place] 6:07 AM [facility] REPOSITORY TYPE CODE TESTS RESULT OUT OF RANGE REFERENCE UNITS LAB 07295838(L 3.6-11.0 E3/mcL OINC) Normal WBC 6.2 LAB 60951334(L 3.90-5.40 E6/mcL OINC) Low RBC 2.81 LAB 78303983(L 12.0-16.0 G/DL OINC) Low Hgb 9.2 LAB 98779028(L 36.0-48.0 % OINC) Low Hct 27.5 LAB 61248131(L 11.5-14.5 % OINC) Normal RDW 14.1 LAB 45663151(L 27.0-31.0 pg OINC) High MCH 32.9 LAB 00133454(L 33.0-37.0 G/DL OINC) Normal MCHC 33.6 LAB 09579382(L 78.0-100.0 fL OINC) Normal MCV 97.8 LAB 55851649(L 7.4-11.0 fL OINC) Normal MPV 8.1 LAB 85030402(L 130-400 E3/mcL OINC) Normal Platelet 218 Performed By: #### [id number] #### [facility] [address] [place] [address] AUTO DIFF Collected: 11/19/2017 Status: F Source: [place] 6:07 AM [facility] REPOSITORY Order Comment: Order Added by Discern Expert. TYPE CODE TESTS RESULT OUT OF RANGE REFERENCE UNITS LAB 01162303(L 37.0-75.0 % OINC) Normal Neutro Auto 57.0 LAB 96751817(L 20.0-55.0 % OINC) Normal Lymph Auto 26.3 LAB 66864864(L 0.0-10.0 % OINC) High Benson Auto 11.0 LAB 66874407(L 0.0-11.0 % OINC) Normal Eos Auto 5.4 LAB 79201977(L 0.0-2.0 % OINC) Normal Basophil Auto 0.3 LAB 40163903(L 1.4-6.5 E3/mcL OINC) Normal Neutro 3.5 Absolute LAB 57904579(L 1.2-3.4 E3/mcL OINC) Normal Lymph Absolute 1.6 LAB 54546780(L 0.0-0.7 E3/mcL OINC) Normal Benson Absolute 0.7 LAB 26407719(L 0.0-0.7 E3/mcL OINC) Normal Eos Absolute 0.3 LAB 32036587(L 0.0-0.2 E3/mcL OINC) Normal Basophil 0.0 Absolute Performed By: #### [id number] #### [facility] [address] [place] [address] BMP Collected: 11/19/2017 Status: F Source: [place] 6:07 AM [facility] REPOSITORY TYPE CODE TESTS RESULT OUT OF RANGE REFERENCE UNITS LAB 56737495(L 70-99 mg/dL OINC) Glucose Normal Lvl 73 LAB 25715835(L 7-18 mg/dL OINC) High BUN 84 LAB 3156257(LO 0.6-1.3 mg/dL INC) High Creatinine 2.8 LAB 34845307(L 5.4-30.0 ratio OINC) Normal BUN/Creat Ratio 30.0 LAB 36421439(L 8.4-10.2 mg/dL OINC) Low Calcium Lvl 8.2 LAB 50939846(L 136-145 mEq/L OINC) Sodium Normal Lvl 142 LAB 97461851(L 3.5-5.1 mEq/L OINC) Normal Potassium Lvl 3.8 LAB 01097451(L 98-107 mEq/L OINC) High Chloride 117 LAB 15197625(L 24.0-30.0 mEq/L OINC) Low CO2 19.4 Performed By: #### [id number] #### [facility] [place] [address] EGFR Collected: 11/19/2017 Status: F Source: [place] 6:07 AM [facility] REPOSITORY Order Comment: Order added by Discern Expert. TYPE CODE TESTS RESULT OUT OF RANGE REFERENCE UNITS LAB 84878229(LO mL/min/1.73 INC) m2 Normal eGFR 16 LAB 29153728(LO mL/min/1.73 INC) m2 Normal eGFR AA 20 Performed By: #### [id number] #### [facility] [place] [address] GLUCOSE POC Collected: 11/18/2017 Status: F Source: [place] 8:20 PM [facility] REPOSITORY TYPE CODE TESTS RESULT OUT OF REFERENCE UNITS RANGE LAB 98305359(LO 70-99 mg/dL INC) High Glucose POC 164 Performed By: #### [id number] #### [facility] POC [address]section [address] [place] [address] GLUCOSE POC Collected: 11/18/2017 Status: F Source: [place] 4:35 PM [facility] REPOSITORY TYPE CODE TESTS RESULT OUT OF REFERENCE UNITS RANGE LAB 04436842(LO 70-99 mg/dL INC) High Glucose POC 103 Performed By: #### [id number] #### [facility] POC [address]section [address] [place] [address] U SODIUM Collected: 11/18/2017 Status: F Source: [place] 2:45 PM [facility] REPOSITORY TYPE CODE TESTS RESULT OUT OF RANGE REFERENCE UNITS LAB 37680249(LO 40-220 mEq/L INC) Normal U Sodium 43 Performed By: #### [id number] #### [facility] [address] [place], [place] [address] U CREATININE Collected: 11/18/2017 Status: F Source: [place] 2:45 PM [facility] REPOSITORY TYPE CODE TESTS RESULT OUT OF RANGE REFERENCE UNITS LAB 81115125(L 20-300 mg/dL OINC) U Normal Creatinine 83 Performed By: #### [id number] #### [facility] [place] [address] U PROTEIN Collected: 11/18/2017 Status: F Source: [place] 2:45 PM [facility] REPOSITORY TYPE CODE TESTS RESULT OUT OF REFERENCE UNITS RANGE LAB 53369591(LO 1-14 mg/dL INC) Ur High Total Protein 16 Performed By: #### [id number] #### [facility] [address] [place] [address] UA COMPLETE Collected: 11/18/2017 Status: F Source: [place] 2:45 PM [facility] REPOSITORY TYPE CODE TESTS RESULT OUT OF RANGE REFERENCE UNITS LAB 25205701( Yellow LOINC) Normal UA Color Yellow LAB 72539613( Clear LOINC) Normal UA Clarity Clear LAB 52420306( Negative LOINC) Normal UA Glucose Negative LAB 48216482( Negative LOINC) Normal UA Bili Negative LAB 30022164( Negative LOINC) Normal UA Ketones Negative LAB 41042515( 1.003-1.030 LOINC) Normal UA Spec Grav 1.011 LAB 41753561( 4.6-8.0 LOINC) Normal UA pH 5.0 LAB 23804931( Negative LOINC) Normal UA Protein Negative LAB 49794698( mg/dL LOINC) Normal UA Urobilinogen Negative LAB 82268248( Negative LOINC) Normal UA Nitrite Negative LAB 03435559( Negative LOINC) Normal UA Blood Negative LAB 13878736( Negative LOINC) Normal UA Leuk Est Negative LAB 53542699( 0-3 /HPF LOINC) Normal UA RBC 0-3 LAB 94910998( 0-5 /HPF LOINC) Normal UA WBC 0-5 LAB 15432173( 0-2 /LPF LOINC) Normal UA Hyal Cast 0-2 LAB 71207080( 0-5 /HPF LOINC) Normal UA Squam Epithelial 0-5 LAB 79179439( None /HPF LOINC) UA Bacteria Abnormal 1+ Performed By: #### [id number] #### [facility] Urinal[facility] Automated Subsection [address] [place] [address] GLUCOSE POC Collected: 11/18/2017 Status: F Source: [place] 11:34 AM [facility] REPOSITORY TYPE CODE TESTS RESULT OUT OF REFERENCE UNITS RANGE LAB 03019195(LO 70-99 mg/dL INC) High Glucose POC 164 Performed By: #### [id number] #### [facility] POC [address]section [address] [place] [address] GLUCOSE POC Collected: 11/18/2017 Status: F Source: [place] 7:11 AM [facility] REPOSITORY TYPE CODE TESTS RESULT OUT OF REFERENCE UNITS RANGE LAB 05425634(LO 70-99 mg/dL INC) High Glucose POC 100 Performed By: #### [id number] #### [facility] POC [address]section [address] [place] [address] BMP Collected: 11/18/2017 Status: F Source: [place] 4:49 AM [facility] REPOSITORY TYPE CODE TESTS RESULT OUT OF RANGE REFERENCE UNITS LAB 49130262(L 70-99 mg/dL OINC) High Glucose Lvl 103 LAB 55265380(L 7-18 mg/dL OINC) High BUN 91 LAB 4587991(LO 0.6-1.3 mg/dL INC) High Creatinine 3.5 LAB 13853970(L 5.4-30.0 ratio OINC) Normal BUN/Creat Ratio 26.0 LAB 86078599(L 8.4-10.2 mg/dL OINC) Low Calcium Lvl 7.9 LAB 21354474(L 136-145 mEq/L OINC) Sodium Normal Lvl 140 LAB 81394188(L 3.5-5.1 mEq/L OINC) Normal Potassium Lvl 4.0 LAB 18593490(L 98-107 mEq/L OINC) High Chloride 114 LAB 71244381(L 24.0-30.0 mEq/L OINC) Low CO2 18.5 Performed By: #### [id number] #### [facility] [place] [address] EGFR Collected: 11/18/2017 Status: F Source: [place] 4:49 AM [facility] REPOSITORY Order Comment: Order added by Discern Expert. TYPE CODE TESTS RESULT OUT OF RANGE REFERENCE UNITS LAB 46833194(LO mL/min/1.73 INC) m2 Normal eGFR 13 LAB 14822165(LO mL/min/1.73 INC) m2 Normal eGFR AA 15 Performed By: #### [id number] #### [facility] [address] [place] [address] CBC W/ AUTO DIFF Collected: 11/18/2017 Status: F Source: [place] 4:47 AM [facility] REPOSITORY TYPE CODE TESTS RESULT OUT OF RANGE REFERENCE UNITS LAB 69161518(L 3.6-11.0 E3/mcL OINC) Normal WBC 5.6 LAB 71004099(L 3.90-5.40 E6/mcL OINC) Low RBC 2.85 LAB 02106921(L 12.0-16.0 G/DL OINC) Low Hgb 9.6 LAB 05318276(L 36.0-48.0 % OINC) Low Hct 28.1 LAB 38691023(L 11.5-14.5 % OINC) Normal RDW 14.5 LAB 65629310(L 27.0-31.0 pg OINC) High MCH 33.5 LAB 21035645(L 33.0-37.0 G/DL OINC) Normal MCHC 34.0 LAB 30256029(L 78.0-100.0 fL OINC) Normal MCV 98.6 LAB 06050205(L 7.4-11.0 fL OINC) Normal MPV 8.1 LAB 90014807(L 130-400 E3/mcL OINC) Normal Platelet 225 Performed By: #### [id number] #### [facility] [employer] [address] [place] [address] AUTO DIFF Collected: 11/18/2017 Status: F Source: [place] 4:47 AM [facility] REPOSITORY Order Comment: Order Added by Discern Expert. TYPE CODE TESTS RESULT OUT OF RANGE REFERENCE UNITS LAB 45841982(L 37.0-75.0 % OINC) Normal Neutro Auto 54.9 LAB 46000433(L 20.0-55.0 % OINC) Normal Lymph Auto 28.2 LAB 70915930(L 0.0-10.0 % OINC) High Benson Auto 13.4 LAB 65600016(L 0.0-11.0 % OINC) Normal Eos Auto 2.9 LAB 62611261(L 0.0-2.0 % OINC) Normal Basophil Auto 0.6 LAB 86100440(L 1.4-6.5 E3/mcL OINC) Normal Neutro 3.1 Absolute LAB 31068025(L 1.2-3.4 E3/mcL OINC) Normal Lymph Absolute 1.6 LAB 11560629(L 0.0-0.7 E3/mcL OINC) High Benson Absolute 0.8 LAB 25081116(L 0.0-0.7 E3/mcL OINC) Normal Eos Absolute 0.2 LAB 73704834(L 0.0-0.2 E3/mcL OINC) Normal Basophil 0.0 Absolute Performed By: #### [id number] #### [facility] [place] [address] GLUCOSE POC Collected: 11/17/2017 Status: F Source: CAODAISM 9:11 PM [facility] REPOSITORY TYPE CODE TESTS RESULT OUT OF REFERENCE UNITS RANGE LAB [id number](LO 70-99 mg/dL INC) High Glucose POC 134 Performed By: #### [id number] #### CORTEZ POC Subsection [address] [place] [address] GLUCOSE POC Collected: 11/17/2017 Status: F Source: CAODAISM 4:19 PM [facility] REPOSITORY TYPE CODE TESTS RESULT OUT OF REFERENCE UNITS RANGE LAB [id number](LO 70-99 mg/dL INC) High Glucose POC 137 Performed By: #### [id number] #### CORTEZ POC Subsection [address] [place] [address] GLUCOSE POC Collected: 11/17/2017 Status: F Source: CAODAISM 11:19 AM [facility] REPOSITORY TYPE CODE TESTS RESULT OUT OF REFERENCE UNITS RANGE LAB [id number](LO 70-99 mg/dL INC) High Glucose POC 130 Performed By: #### [id number] #### CORTEZ POC [address]section [address] [place] [address] GLUCOSE POC Collected: 11/17/2017 Status: F Source: CAODAISM 7:44 AM [facility] REPOSITORY TYPE CODE TESTS RESULT OUT OF RANGE REFERENCE UNITS LAB [id number](LO 70-99 mg/dL INC) Normal Glucose POC 78 Performed By: #### [id number] #### CORTEZ POC Subsection [address] [place] [address] BMP Collected: 11/17/2017 Status: F Source: CAODAISM 5:57 AM [facility] REPOSITORY TYPE CODE TESTS RESULT OUT OF RANGE REFERENCE UNITS LAB [id number](L 70-99 mg/dL OINC) Normal Glucose Lvl 80 LAB [id number](L 7-18 mg/dL OINC) Abnormal Alert BUN 106 Result Comment: Critical Result BUN: Called to: MARY CARMEN BUCHANAN at: 06:45:11 by:[facility] Read back by:MARY CARMEN BUCHANAN LAB [id number](LOINC) 0.6-1.3 mg/dL High Creatinine 4.2 LAB [id number](LOINC) 5.4-30.0 ratio Normal BUN/Creat Ratio 25.2 LAB [id number](LOINC) 8.4-10.2 mg/dL Normal Calcium Lvl 8.5 LAB [id number](LOINC) 136-145 mEq/L Low Sodium Lvl 135 LAB [id number](LOINC) 3.5-5.1 mEq/L Normal Potassium Lvl 3.7 LAB [id number](LOINC) 98-107 mEq/L High Chloride 108 LAB [id number](LOINC) 24.0-30.0 mEq/L Low CO2 18.1 Performed By: #### [id number] #### CORTEZ [employer] [facility] [place] [address] EGFR Collected: 11/17/2017 Status: F Source: CAODAISM 5:57 AM [facility] REPOSITORY Order Comment: Order added by Discern Expert. TYPE CODE TESTS RESULT OUT OF RANGE REFERENCE UNITS LAB [id number](LO mL/min/1.73 INC) m2 Normal eGFR 10 LAB 41789075(LO mL/min/1.73 INC) m2 Normal eGFR AA 12 Performed By: #### [id number] #### [employer] [employer] [facility] [place] [address] HGBA1C Collected: 11/17/2017 Status: F Source: CAODAISM 5:57 AM [facility] REPOSITORY TYPE CODE TESTS RESULT OUT OF RANGE REFERENCE UNITS LAB [id number]( 4.0-6.3 % LOINC) Normal Hemoglobin A1c 6.1 Performed By: #### [id number] #### CORTEZ Chemistry Manual Subsection [facility] [place] [address] XR ABDOMEN ACUTE (PA Observed: 11/17/2017 Status: F Source: CAODAISM CHEST) 1:15 AM [facility] REPOSITORY Exam Date/Time: 11/17/2017 01:15 EST Reason [...] BY PCR Collected: 11/17/2017 Status: F Source: CAODAISM 1:04 AM [facility] REPOSITORY TYPE CODE TESTS RESULT OUT OF RANGE REFERENCE UNITS LAB [id number]( Negative LOINC) Normal Toxigenic C. Negative diff PCR Result Comment: Performance characteristics were not established for patients < 2 years of age. LAB [id number](LOINC) Presumptive Neg Normal 027-NAP1-B1 by Presumptive Neg PCR Result Comment: Detection of 027/NAP1/B1 strains of C. difficile is presumptive and is solely for epidemiological purpose and is not intended to guide or monitor treatment for C. difficile infections. Performed By: #### [id number] #### CORTEZ Misc Micro SubSection , CBC W/ AUTO DIFF Collected: 11/17/2017 Status: F Source: CAODAISM 1:00 [facility] REPOSITORY TYPE CODE TESTS RESULT OUT OF RANGE REFERENCE UNITS LAB 83684466(L 3.6-11.0 E3/mcL OINC) Normal WBC 6.9 LAB 09844112(L 3.90-5.40 E6/mcL OINC) Low RBC 3.29 LAB 86088711(L 12.0-16.0 G/DL OINC) Low Hgb 10.8 LAB 20277189(L 36.0-48.0 % OINC) Low Hct 32.8 LAB 50553450(L 11.5-14.5 % OINC) High RDW 14.8 LAB 22422145(L 27.0-31.0 pg OINC) High MCH 32.7 LAB 95162552(L 33.0-37.0 G/DL OINC) Low MCHC 32.8 LAB 79191517(L 78.0-100.0 fL OINC) Normal MCV 99.7 LAB 84648320(L 7.4-11.0 fL OINC) Normal MPV 8.1 LAB 34704379(L 130-400 E3/mcL OINC) Normal Platelet 244 Performed By: #### [id number] #### CORTEZ [employer] [address] [place] [address] AUTO DIFF Collected: 11/17/2017 Status: F Source: CAODAISM 1:00 [facility] REPOSITORY Order Comment: Order Added by Discern Expert. TYPE CODE TESTS RESULT OUT OF RANGE REFERENCE UNITS LAB 24177414(L 37.0-75.0 % OINC) Normal Neutro Auto 70.9 LAB 76551002(L 20.0-55.0 % OINC) Low Lymph Auto 13.4 LAB 95650887(L 0.0-10.0 % OINC) High Benson Auto 14.7 LAB 05193710(L 0.0-11.0 % OINC) Normal Eos Auto 0.4 LAB 14096891(L 0.0-2.0 % OINC) Normal Basophil Auto 0.6 LAB 97341392(L 1.4-6.5 E3/mcL OINC) Normal Neutro 4.9 Absolute LAB 12867103(L 1.2-3.4 E3/mcL OINC) Low Lymph Absolute 0.9 LAB 12288459(L 0.0-0.7 E3/mcL OINC) High Benson Absolute 1.0 LAB 37605785(L 0.0-0.7 E3/mcL OINC) Normal Eos Absolute 0.0 LAB 68050734(L 0.0-0.2 E3/mcL OINC) Normal Basophil 0.0 Absolute Performed By: #### [id number] #### CORTEZ [employer] [address] [place] [address] LACTIC ACID Collected: 11/17/2017 Status: F Source: CAODAISM 1:00 AM [facility] REPOSITORY TYPE CODE TESTS RESULT OUT OF RANGE REFERENCE UNITS LAB 00724801(LO 0.5-2.2 mmol/L INC) Normal Lactic Acid 1.3 Lvl Performed By: #### [id number] #### [facility] [employer] [address] [place] [address] HEP FUNC PANEL Collected: 11/17/2017 Status: F Source: CAODAISM 1:00 AM [facility] REPOSITORY TYPE CODE TESTS RESULT OUT OF RANGE REFERENCE UNITS LAB 94497570(L 10-40 Int._Unit/L OINC) Normal ALT 16 LAB 55357917(L 10-42 Int._Unit/L OINC) Normal AST 15 LAB 20713492(L 3.2-5.0 G/DL OINC) Normal Albumin Lvl 3.3 LAB 36056262(L 2.0-4.0 G/DL OINC) Normal Globulin 2.9 LAB 23463492(L 1.1-1.9 ratio OINC) Normal A/G Ratio 1.1 LAB 79691054(L 42-121 Int._Unit/L OINC) Normal Alk Phos 47 LAB 00715066(L .00-.20 mg/dL OINC) Normal Bili Direct <.10 LAB 55401855(L OINC) Normal Bili Indirect >0.3 Result Comment: No established ranges available for the Indirect Biliruben. LAB 61363055(LOINC) 0.2-1.0 mg/dL Normal Bili Total 0.4 LAB 85410121(LOINC) 6.4-8.3 G/DL Low Total Protein 6.2 Performed By: #### [id number] #### CORTEZ RemAasonn[address] [place] [address] LIPASE LEVEL Collected: 11/17/2017 Status: F Source: CAODAISM 1:00 AM [facility] REPOSITORY TYPE CODE TESTS RESULT OUT OF RANGE REFERENCE UNITS LAB 63804833(LO 8-57 U/L INC) Normal Lipase Lvl 12 Performed By: #### 4836469 #### CORTEZ nGAP [facility] [place] [address] BMP Collected: 11/17/2017 Status: F Source: CAODAISM 1:00 AM [facility] REPOSITORY TYPE CODE TESTS RESULT OUT OF RANGE REFERENCE UNITS LAB 98649618(L 70-99 mg/dL OINC) Normal Glucose Lvl 77 LAB 7656877(LO 0.6-1.3 mg/dL INC) High Creatinine 4.7 LAB 33168527(L 8.4-10.2 mg/dL OINC) Normal Calcium Lvl 9.3 LAB 30166918(L 136-145 mEq/L OINC) Low Sodium Lvl 135 LAB 38452322(L 3.5-5.1 mEq/L OINC) Normal Potassium Lvl 3.5 LAB 80078508(L 98-107 mEq/L OINC) Normal Chloride 106 LAB 27355096(L 24.0-30.0 mEq/L OINC) Low CO2 17.2 LAB 54618847(L 7-18 mg/dL OINC) BUN Abnormal 106 Alert Result Comment: Critical Result BUN: Called to: LALY DIGGS at: 01:31:55 by:MICKEY Read back by:LALY DIGGS LAB 44343090(LOINC) 5.4-30.0 ratio Normal BUN/Creat Ratio 22.6 Performed By: #### [id number] #### CORTEZ RemYuMe [facility] [place] [address] EGFR Collected: 11/17/2017 Status: F Source: CAODAISM 1:00 AM [facility] REPOSITORY Order Comment: Order added by Discern Expert. TYPE CODE TESTS RESULT OUT OF RANGE REFERENCE UNITS LAB 22847693(LO mL/min/1.73 INC) m2 Normal eGFR 9 LAB 47988458(LO mL/min/1.73 INC) m2 Normal eGFR AA 11 Performed By: #### [id number] #### [facility] [employer] [address] [place] [address] HH, HEMOGLOBIN AND Collected: 11/10/2017 Status: F Source: TAHIRA HEMATOCRIT 7:33 AM [facility] REPOSITORY TYPE CODE TESTS RESULT OUT OF RANGE REFERENCE UNITS LAB L100.1300 12.0-15.0 g/dl Low HGB 10.3 LAB L100.1400 37-47 % Low HCT 33.4 Performed By: #### L100.0600 #### [facility] [address] [place], [place], [address] CBC-COMPLETE BLOOD CNT Collected: 10/27/2017 Status: F Source: TAHIRA NO DIFF 7:30 AM [facility] REPOSITORY TYPE CODE TESTS RESULT OUT OF [...] 10.1 Performed By: #### L100.0500, L500.3600 #### [facility] [address] [place], [address] RENAL PROFILE Collected: 10/27/2017 Status: F Source: TAHIRA 7:30 AM [facility] REPOSITORY TYPE CODE TESTS RESULT OUT OF [...] 23.0 Performed By: #### L100.0500, L500.3600 #### [facility] [address] [place], [address] ALLERGIES ALLERGIES DATE TYPE / CODE NAME / CODE REACTION SEVERITY SOURCE 07/20/2018 Drug Penicillins/[id number] Rash [facility] Allergy/416 0476(RXNORM) [facility] 642310([facility] ED CT) Repository Drug/137259 penicillins Scientology 003([facility]) System Repository ENCOUNTERS ENCOUNTERS ADMIT/DISCHARGE ACCOUNT ADMITTING ENCOUNTER LOCATION SOURCE NUMBER CLASS 10/12/2018 [id number] Ambulatory [facility] ing:MEDOUTP Repository 10/09/2018 [id number] [facility] ing:PSN Repository 09/28/2018 [id number] [facility] ing:MEDOUTP Repository 09/20/2018/09/20/19 [id number] [place], [facility] ing:CD:[id number] Health System 7151Room: Repository CD:[id number] 09/14/2018 [id number] [facility] ing:MEDOUTP Repository 08/31/2018 [id number] [facility] ing:MEDOUTP Repository 08/16/2018 [id number] [facility] ing:MEDOUTP Repository 08/03/2018 [id number] [facility] ing:MEDOUTP Repository 07/20/2018 [id number] [facility] ing:MEDOUTP Repository 07/06/2018 [id number] [facility] ing:MEDOUTP Repository 06/22/2018 [id number] [facility] ing:MEDOUTP Repository 06/08/2018 [id number] [facility] ing:MEDOUTP Repository 05/25/2018 [id number] Ambulatory [facility] ing:MEDOUTP Repository 05/11/2018 [id number] [facility] ing:MEDOUTP Repository 04/27/2018 [id number] Amb[facility] ing:MEDOUTP Repository 04/13/2018 [id number] [facility] ing:MEDOUTP Repository 03/30/2018 [id number] [facility]ulatory [facility] ing:MEDOUTP Repository 03/16/2018 [id number] [facility] ing:MEDOUTP Repository 03/02/2018 [id number] [facility] ing:MEDOUTP Repository 02/16/2018 [id number] Amb[facility] ing:MEDOUTP Repository 02/02/2018 [id number] Ambulatory [facility] ing:MEDOUTP Repository 01/19/2018 [id number] Ambulatory [facility] ing:MEDOUTP Repository 01/05/2018 [id number] Ambulatory [facility] ing:MEDOUTP Repository 12/30/2017 [id number] Ambulatory [facility] ing:LAB Repository 12/22/2017 [id number] Ambulatory [facility] ing:MEDOUTP Repository 12/08/2017 [id number] Ambulatory [facility] ing:MEDOUTP Repository 11/24/2017 [id number] Ambulatory [facility] ing:MEDOUTP Repository 11/17/2017/11/21/[id number] ing:[facility] oom: 0303Bed: Repository 11/10/2017 [id number] Ambulatory [facility] ing:MEDOUTP Repository 10/27/2017 [id number] Ambulatory [facility] ing:MEDOUTP Repository PAYERS PAYERS ENCOUNTER GUARANTOR PAYER SUBSCRIBER SOURCE 10/12/2018 MONY R Primary MONY R [place] [id number] Insurance:MEDICARE WICKHAMDOB: [address], PART A [facility] [id number] Vista [facility] [address]Pot: Number: Repository [id number] () Date:2018-09-28 10/12/2018 Secondary MONY R [place] Insurance:[facility] Number: [id number] [id number] Repository Date:2855-95-84LNRVOD [place] [address]KX: 10/12/2018 Tertiary NOT GIVENUNK [place] Insurance:SELF PAY [facility] Number: Effective Repository Date:2018-09-28 10/09/2018 MONY R Primary MONY R [place] [id number] CR Insurance:MEDICARE WICKHAMDOB: [address], PART A [facility] [id number] Vista Regional Hospital [address]Kxv: Number: Repository [id number] () Date:2018-07-12 10/09/2018 Secondary MONY R [place] Insurance:MUTUAL OF [facility]: [facility] Number: [id number] Hospital [id number] Repository Date:5164-99-15CXHOBO [place] [address]TJ: 10/09/2018 Tertiary NOT GIVENUNK [place] Insurance:SELF PAY [facility] Number: Effective Repository Date:2018-07-12 09/28/2018 MONY R Primary MONY R [place] [id number] CR Insurance:MEDICARE WICKHAMDOB: [address], PART A [facility] [id number] Vista Regional Hospital [address]Spd: Number: Repository [id number] (HP) Date:2018-09-14 09/28/2018 Secondary MONY R [place] Insurance:MUTUAL OF [facility]: [facility] Number: [id number] Hospital [id number] Repository Date:4841-46-88ZFIHKP [place] [address]OP: 09/28/2018 Tertiary NOT GIVENUNK [place] Insurance:SELF PAY [facility] Number: Effective Repository Date:2018-09-14 09/20/2018 MONY R Primary MONY R Scientology WIQUINCYDOB: [facility] icy Number: Effective [id number] System [facility] Date:2018-09-20 [facility] Repository [address] [place] [address], [id number] [address] [place] [address] Name:CD:[id number] [address]Pkc: [id number], [place] [address]Iab: [id number]: [phone]) (HP) [phone] (HP) (WP) 09/20/2018 Secondary MONY R Scientology Insurance:MUTUAL OF [facility]: [facility] Number: [id number] System Effective 2 [facility] Repository Date:2018-09-[address] [place] [address], [id number] [place] Name:CD:[id number] [address]Ivx: [place] [address]UK: [phone] (HP) [phone] (WP) 09/14/2018 MONY R Primary MONY R Seadrift [id number] CR Insurance:MEDICARE WICKHAMDOB: [address], PART A BPolic [id number] [place] [address]Rux: Number: Repository [id number] (HP) Date:2018-08-31 09/14/2018 Secondary MONY R [place] Insurance:[facility]UAL OF [facility]: [facility] Number: [id number] Hospital [id number] Repository Date:9444-07-90PJZHOZ [place] [address]UG: 09/14/2018 Tertiary NOT GIVENUNK [place] Insurance:SELF PAY [facility] Number: Effective Repository Date:2018-08-31 08/31/2018 MONY R Primary MONY R [place] [id number] CR Insurance:MEDICARE WICKHAMDOB: [facility] [address], [place] [facility] [id number] Vista Regional Hospital [address]Eab: Number: Repository [id number] (HP) Date:2018-08-16 08/31/2018 Secondary MONY R [place] Insurance:[facility]: [facility] Number: [id number] Hospital [id number] Repository Date:8458-04-74UPMGKR [place], [place] [address]IN: 08/31/2018 Tertiary NOT GIVENUNK [place] Insurance:SELF PAY [facility] Number: Effective Repository Date:2018-08-16 08/16/2018 MONY R Primary MONY R [place] [id number] CR Insurance:MEDICARE WICKHAMDOB: [address], PART A [facility] [id number] Vista Regional Hospital [address]Qwe: Number: Repository [id number] (HP) Date:2018-08-03 08/16/2018 Secondary MONY R [place] Insurance:[facility]UAL OF [facility]: [facility] Number: [id number] Hospital [id number] Repository Date:8273-38-49JNVJUK [place] [address]YE: 08/16/2018 Tertiary NOT GIVENUNK [place] Insurance:SELF PAY [facility] Number: Effective Repository Date:2018-08-03 08/03/2018 MONY R Primary MONY R [place] [id number] CR Insurance:MEDICARE WICKHAMDOB: [address], PART A [facility] [id number] Vista Regional Hospital [address]Vvk: Number: Repository [id number] () Date:2018-08-01 08/03/2018 Secondary MONY R [place] Insurance:MUTUAL OF [facility]: [facility] Number: [id number] Hospital [id number] Repository Date:6682-18-07PVJHZI [place], [place] [address]CG: 08/03/2018 Tertiary NOT GIVENUNK [place] Insurance:SELF PAY [facility] Number: Effective Repository Date:2018-08-01 07/20/2018 MONY R Primary MONY R [place] [id number] CR Insurance:MEDICARE WICKHAMDOB: [address], PART A [facility] [id number] Vista Regional Hospital [address]Zvr: Number: Repository [id number] (HP) Date:2018-07-06 07/20/2018 Secondary MONY R [place] Insurance:[facility]UTUAL OF [facility]: [facility] Number: [id number] Hospital [id number] Repository Date:3017-27-73FZGXRA [place], [place] [address]PW: 07/20/2018 Tertiary NOT GIVENUNK [place] Insurance:SELF PAY [facility] Number: Effective Repository Date:2018-07-06 07/06/2018 MONY R Primary MONY R [place] [id number] CR Insurance:MEDICARE WICKHAMDOB: [address], PART A [facility] [id number] Vista Regional Hospital [address]Nhn: Number: Repository [id number] () Date:2018-06-22 07/06/2018 Secondary MONY R [place] Insurance:MUTUAL OF WICKHAMDOB: [facility] Number: [id number] Hospital [id number] Repository Date:7767-95-09MQLWJA [place] [address]ZL: 07/06/2018 Tertiary NOT GIVENUNK [place] Insurance:SELF PAY [facility] Number: Effective Repository Date:2018-06-22 06/22/2018 MONY R Primary MONY R [place] [id number] CR Insurance:MEDICARE WICKHAMDOB: [address], PART A [facility] [id number] Vista Regional Hospital 16[address]Xnt: Number: Repository [id number] (HP) Date:2018-06-08 06/22/2018 Secondary MONY R [place] Insurance:MUTUAL OF [facility]: [facility] Number: [id number] Hospital [id number] Repository Date:7194-91-48GVQOIQ [place] [address]SF: 06/22/2018 Tertiary NOT GIVENUNK [place] Insurance:SELF PAY [facility] Number: Effective Repository Date:2018-06-08 06/08/2018 MONY R Primary MONY R [place] [id number] CR Insurance:MEDICARE WICKHAMDOB: [address], PART A [facility] [id number] Vista Regional Hospital [address]Mgy: Number: Repository [id number] () Date:2018-05-25 06/08/2018 Secondary MONY R [place] Insurance:[facility]UAL [facility]: [facility] Number: [id number] Hospital [id number] Repository Date:6549-52-59ZPDQRC [place] [address]KN: 06/08/2018 Tertiary NOT GIVENUNK [place] Insurance:SELF PAY [facility] Number: Effective Repository Date:2018-05-25 05/25/2018 MONY R Primary MONY R [place] [id number] CR Insurance:MEDICARE WICKHAMDOB: [address], PART A [facility] [id number] Vista Regional Hospital [address]Mgp: Number: Repository [id number] () Date:2018-05-11 05/25/2018 Secondary MONY R [place] Insurance:MUTUAL OF [facility]: [facility] Number: [id number] Hospital [id number] Repository Date:5095-80-62FJZULG [place] [address]GD: 05/25/2018 Tertiary NOT GIVENUNK [place] Insurance:SELF PAY [facility] Number: Effective Repository Date:2018-05-11 05/11/2018 MONY R Primary MONY R [place] [id number] CR Insurance:MEDICARE WICKHAMDOB: [address], PART A [facility] [id number] Vista Regional Hospital [address]Iyo: Number: Repository [id number] (HP) Date:2018-04-27 05/11/2018 Secondary MONY R [place] Insurance:[facility]UTUAL OF [facility]: [facility] Number: [id number] Hospital [id number] Repository Date:3418-39-03UTVSNX [place] [address]ZU: 05/11/2018 Tertiary NOT GIVENUNK [place] Insurance:SELF PAY [facility] Number: Effective Repository Date:2018-04-27 04/27/2018 MONY R Primary MONY R [place] [id number] CR Insurance:MEDICARE WICKHAMDOB: [address], PART A [facility] [id number] Vista Regional Hospital [address]Iev: Number: Repository [id number] (HP) Date:2018-04-13 04/27/2018 Secondary MONY R [place] Insurance:[facility]UAL [facility]: [facility] Number: [id number] Hospital [id number] Repository Date:7482-70-97KRVXYF [place] [address]JS: 04/27/2018 Tertiary NOT GIVENUNK [place] Insurance:SELF PAY [facility] Number: Effective Repository Date:2018-04-13 04/13/2018 MONY R Primary MONY R [place] [id number] CR Insurance:MEDICARE WICKHAMDOB: [address], PART A [facility] [id number] Vista Regional Hospital [address]Key: Number: Repository [id number] (HP) Date:2018-03-30 04/13/2018 Secondary MONY R [place] Insurance:MUTUAL OF WICKHAMDOB: [facility] Number: [id number] Hospital [id number] Repository Date:2932-74-95UMOVBQ [place] [address]CD: 04/13/2018 Tertiary NOT GIVENUNK [place] Insurance:SELF PAY [facility] Number: Effective Repository Date:2018-03-30 03/30/2018 MONY R Primary MONY R [place] [id number] CR Insurance:MEDICARE WICKHAMDOB: [address], PART A [facility] [id number] Vista Regional Hospital [address]Qxc: Number: Repository [id number] () Date:2018-03-16 03/30/2018 Secondary MONY R [place] Insurance:[facility]UAL [facility]: [facility] Number: [id number] Hospital [id number] Repository Date:3889-68-91WUSMFW [place], [place] [address]UY: 03/30/2018 Tertiary NOT GIVENUNK [place] Insurance:SELF PAY [facility] Number: Effective Repository Date:2018-03-16 03/16/2018 MONY R Primary MONY R [place] [id number] CR Insurance:MEDICARE WICKHAMDOB: [address]ONV[facility], PART A [facility] [id number] Vista Regional Hospital [address]Ueq: Number: Repository [id number] (HP) Date:2018-03-02 03/16/2018 Secondary MONY R [place] Insurance:[facility]UAL [facility]: [facility] Number: [id number] Hospital [id number] Repository Date:2231-90-12DOOUIQ [place] [address]PG: 03/16/2018 Tertiary NOT GIVENUNK [place] Insurance:SELF PAY [facility] Number: Effective Repository Date:2018-03-02 03/02/2018 Mony R Primary Mony R [place] [id number] CR Insurance:MEDICARE WickhamDOB: [facility] [address], [place] [facility] [id number] Vista Regional Hospital [address]Npx: Number: Repository [id number] () Date:2018-02-16 03/02/2018 Secondary Mony R [place] Insurance:MUTUAL OF [facility]: [facility] Number: [id number] Hospital [id number] Repository Date:3917-78-72IUEYBZ [place], [place] [address]IC: 03/02/2018 Tertiary NOT GIVENUNK [place] Insurance:SELF PAY [facility] Number: Effective Repository Date:2018-02-16 02/16/2018 Mony R Primary Mony R [place] [id number] CR Insurance:MEDICARE WickhamDOB: [address], PART A [facility] [id number] Vista Regional Hospital [address]Zzm: Number: Repository [id number] () Date:2018-02-02 02/16/2018 Secondary Mony R [place] Insurance:M[facility]UAL OF [facility]: [facility] Number: [id number] Hospital [id number] Repository Date:5300-77-00XKRHTV [place] [address]KM: 02/16/2018 Tertiary NOT GIVENUNK [place] Insurance:SELF PAY [facility] Number: Effective Repository Date:2018-02-02 02/02/2018 Mony R Primary Mony R [place] [id number] CR Insurance:MEDICARE [place]DOB: [address], PART [place] [facility] [id number] Vista Regional Hospital [address]Drz: Number: Repository [id number] () Date:2018-01-19 02/02/2018 Secondary Mony R [place] Insurance[facility] Number: [id number] Hospital [id number] Repository Date:7147-15-88OZNDLS [place] [address]LS: 02/02/2018 Tertiary NOT GIVENUNK [place] Insurance:SELF PAY [facility] Number: Effective Repository Date:2018-01-19 01/19/2018 Mony R Primary Mony R [place] [id number] CR Insurance:MEDICARE Wick[place]DOB[facility] [id number] Vista Regional Hospital [address]Cum: Number: Repository [id number] (HP) Date:2018-01-05 01/19/2018 Secondary Mony R [place] Insurance:MUTUAL OF WickhamDOB: [facility] Number: [id number] Hospital [id number] Repository Date:1728-14-19HXXBMB [place], [place] [address]IJ: 01/19/2018 Tertiary NOT GIVENUNK [place] Insurance:SELF PAY [facility] Number: Effective Repository Date:2018-01-05 01/05/2018 Mony R Primary Mony R [place] [id number] Cr Insurance:MEDICARE Wick[place]DOB: [address], PART [place] [facility] [id number] Vista Regional Hospital [address]Aho: Number: Repository [id number] () Date:2017-12-22 01/05/2018 Secondary Mony R [place] Insurance:MUTUAL OF [place]DOB: [facility] Number: [id number] Hospital [id number] Repository Date:1120-29-78LZMQUI [place], [place] [address]OV: 01/05/2018 Tertiary NOT GIVENUNK [place] Insurance:SELF PAY [facility] Number: Effective Repository Date:2017-12-22 12/30/2017 Mony R Primary Mony R [place] [id number] Cr Insurance:MEDICARE WickhamDOB: [address], PART A [facility] [id number] Vista Regional Hospital [address]Ehp: Number: Repository [id number] (HP) Date:2017-12-30 12/30/2017 Secondary Mony R [place] Insurance:MUTUAL OF [facility] Number: [id number] Hospital [id number] Repository Date:8558-08-23MEORSS [place], [place] [address]EF: 12/30/2017 Tertiary NOT GIVENUNK [place] Insurance:SELF PAY [facility] Number: Effective Repository Date:2017-12-30 12/22/2017 Mony R Primary Mony R [place] [id number] Cr Insurance:MEDICARE WickhamDOB: [address], PART [place] [facility] [id number] Vista Regional Hospital [address]Bqs: Number: Repository [id number] (HP) Date:2017-12-08 12/22/2017 Secondary Mony R [place] Insurance:MUTUAL OF [facility] Number: [id number] Hospital [id number] Repository Date:3483-62-03DPNRLB [place], [place] [address]LT: 12/22/2017 Tertiary NOT GIVENUNK [place] Insurance:SELF PAY [facility] Number: Effective Repository Date:2017-12-08 12/08/2017 Mony R Primary Mony R [place] [id number] Cr Insurance:MEDICARE WickhamDOB: [address], PART A [facility] [id number] Vista Regional Hospital [address]Gul: Number: Repository [id number] (HP) Date:2017-11-24 12/08/2017 Secondary Mony R [place] Insurance:MUTUAL OF [facility]: [facility] Number: [id number] Hospital [id number] Repository Date:9572-10-11IMPWEA [place], [place] [address]ZX: 12/08/2017 Tertiary NOT GIVENUNK [place] Insurance:SELF PAY [facility] Number: Effective Repository Date:2017-11-24 11/24/2017 Mony R Primary Mony R [place] [id number] Cr Insurance:MEDICARE Wick[place]DOB: [address], PART A BPolicy [id number] Vista Regional Hospital [address]Zbx: Number: Repository [id number] (HP) Date:2017-11-10 11/24/2017 Secondary Mony R [place] Insurance:MUTUAL OF [facility]: [facility] Number: [id number] Hospital [id number] Repository Date:4069-81-02ROVGOY [place] [address]HM: 11/24/2017 Tertiary NOT GIVENUNK [place] Insurance:SELF PAY [facility] Number: Effective Repository Date:2017-11-10 11/17/2017 MONY R Primary MONY R Scientology [facility]: [facility] Number: Effective [id number] System [facility] Date:2017-11-17 [facility] Repository [address] [place] [address] [id number] [address] [place] [address] Name:CD:[id number] [facility] [address]Ykd: 536184SRCSIMEJIC, [place] [address]Zyy: [id number]: [phone] (HP) [phone] (HP) (WP) 11/17/2017 Secondary MONY R Scientology Insurance:MUTUAL OF [facility] Number: [id number] System Effective [address] [facility] [address] Repository Date:2017-11-17 - [address] [place] [address] [id number] [place] Name:CD:[id number]: [place] [address]DS: [phone] (HP) [phone] (WP) 11/10/2017 Mony R Primary Mony R [place] [id number] Cr Insurance:MEDICARE WickhamDOB: [address], PART A [facility] [id number] Vista Regional Hospital [address]Hpo: Number: Repository [id number] (HP) Date:2017-10-27 11/10/2017 Secondary Mony R [place] Insurance:MUTUAL OF WickhamDOB: [facility] Number: [id number] Hospital [id number] Repository Date:7351-72-10LKGCCV OF [facility], [place] [address]IR: 11/10/2017 Tertiary NOT GIVENUNK [place] Insurance:SELF PAY [facility] Number: Effective Repository Date:2017-10-27 10/27/2017 Mony R Primary Mony R [place] [id number] Cr Insurance:MEDICARE Wickun[facility] systemDOB: [address], PART A [facility] [id number] Vista Regional Hospital [address]Jip: Number: Repository [id number] (HP) Date:2017-10-13 10/27/2017 Secondary Mony R [place] Insurance:MUTUAL OF [place]hamDOB: [facility] Number: [id number] Hospital [id number] Repository Date:5532-52-11MFGVDG OF [facility], [place] [address]LK: 10/27/2017 Tertiary NOT GIVENUNK [place] Insurance:SELF PAY [facility] Number: Effective Repository Date:2017-10-13
== END ==
DX: G56.03 Carpal tunnel syndrome, bilateral upper limbs (principal)
CPT/HCPCS: 95911

== ENCOUNTER → 2018-10-12 11:16 | Outpatient (CLI) | payer MEDICARE, OTHER, SELFPAY ==
[2018-09-28 12:26] VITALS: BMI 42.7
[2018-10-12 11:37] LABS: Hematocrit 33.9 % (37-47); Hemoglobin 10.5 g/dl (12.0-15.0); Mean Corpuscular Hgb 31.6 pg (27.0-32.0); Mean Corpuscular Volume 102.1 fL (81-99); Mean Platelet Vol. 9.6 fl (6.2-12.0); Platelet Count 257 K/mm3 (150-450); RBC Distribution Width CV 14.1 % (11.6-14.6); RBC Distribution Width SD 53.2 fl (35.1-43.9); Red Blood Count 3.32 M/mm3 (4.2-5.4)
[2018-10-12 11:39] LABS: Scan Indicated on CBC? Y/N NO
[2018-10-12 11:52] VITALS: BP 130/60; PULSE 57; RESP 18; TEMP 36.2; O2SAT 96; BMI 42.7
[2018-10-12 11:54] LABS: Albumin, Serum 3.2 g/dL (3.2-5.0); BUN 66 mg/dL (7-18); BUN/Creat Ratio 24.8 RATIO (10-20); Calcium,Total 8.5 mg/dL (8.5-10.1); Chloride 112 mmol/L (98-107); Creatinine, Serum 2.66 mg/dL (0.55-1.02); EST Glomerular Filtration Rate 18 mL/min (>60); Est Glom Filt Rate - Afr Amer 22 mL/min (>60); Ferritin 100 ng/mL (8-252); Glucose 97 mg/dL (74-106); Iron 55 ug/dL (50-170); Iron Binding Capacity,Total 232 ug/dL (250-450); Phosphorus 3.4 mg/dL (2.5-4.9); Potassium 3.5 mmol/L (3.5-5.1); Sodium Level 145 mmol/L (136-145)
== END ==
PROVIDERS: Referring Provider Internal Medicine Nephrology; Visit Provider Internal Medicine Nephrology
DX: N18.4 Chronic kidney disease, stage 4 (severe) (principal); D63.1 Anemia in chronic kidney disease
CPT/HCPCS: 36415; 80069; 82728; 83540; 83550; 85027; 96372; J0885

== ENCOUNTER → 2018-10-26 11:13 | Outpatient (CLI) | payer MEDICARE, OTHER, SELFPAY ==
[2018-10-12 11:52] VITALS: BMI 42.7
[2018-10-26 11:20] VITALS: BP 113/69; PULSE 64; RESP 16; TEMP 36.2; O2SAT 93; BMI 42.7
[2018-10-26 11:27] LABS: Hematocrit 35.2 % (37-47); Hemoglobin 10.9 g/dl (12.0-15.0)
== END ==
PROVIDERS: Referring Provider Internal Medicine Nephrology; Visit Provider Internal Medicine Nephrology
DX: N18.4 Chronic kidney disease, stage 4 (severe) (principal); D63.1 Anemia in chronic kidney disease
CPT/HCPCS: 36415; 85014; 85018; 96372; J0885

== ENCOUNTER → 2018-11-13 11:14 | Outpatient (CLI) | payer MEDICARE, OTHER, SELFPAY ==
[2018-10-26 11:20] VITALS: BMI 42.7
[2018-11-13 11:30] VITALS: BP 123/40; PULSE 57; RESP 18; TEMP 36.4; O2SAT 97; BMI 42.7
[2018-11-13 11:52] LABS: Hemoglobin 9.9 g/dl (12.0-15.0); Mean Corp Hgb Conc 30.9 g/gl (32-36); Mean Corpuscular Volume 103.6 fL (81-99); Mean Platelet Vol. 10.1 fl (6.2-12.0); Platelet Count 228 K/mm3 (150-450); RBC Distribution Width CV 13.6 % (11.6-14.6); RBC Distribution Width SD 50.2 fl (35.1-43.9); Red Blood Count 3.09 M/mm3 (4.2-5.4); White Blood Count 7.1 K/mm3 (4.4-11.0)
[2018-11-13 11:54] LABS: Scan Indicated on CBC? Y/N NO
[2018-11-13 12:23] LABS: Albumin, Serum 3.2 g/dL (3.2-5.0); BUN 61 mg/dL (7-18); Chloride 110 mmol/L (98-107); Creatinine, Serum 2.65 mg/dL (0.55-1.02); EST Glomerular Filtration Rate 19 mL/min (>60); Est Glom Filt Rate - Afr Amer 22 mL/min (>60); Glucose 77 mg/dL (74-106); Phosphorus 2.8 mg/dL (2.5-4.9); Potassium 3.9 mmol/L (3.5-5.1); Sodium Level 143 mmol/L (136-145)
[2018-11-13 12:39] LABS: PTHIN 150.1 pg/mL (18.4-80.1); Vitamin B12 322 pg/mL (211-911); Vitamin D,25 Hydroxy 13.4 ng/mL (29.95-100.01)
[2018-11-13 13:02] LABS: Color, Urine Yellow (Yellow); Glucose, Dipstick Normal (Normal); Ketone-Dipstick Negative (Negative); Leukocyte Esterase-Dipstick Negative /ul (Negative); Nitrite-Dipstick Negative (Negative); Occult Blood-Urine Negative /ul (Negative); Protein-Dipstick Negative (Negative); Urine Bilirubin Dipstick Negative (Negative); Urine Clarity Clear (Clear); Urine Urobilinogen Normal (Normal)
[2018-11-13 13:23] LABS: Microalbumin,Random Urine 9.5 mg/L (NO RANGE EST.); Microalbumin:Creatinine Ratio 19.8 mg/g CRE (<30 mg/g CRE); Protein, Urine (Random) 8.3 mg/dL (<11.9); Protein:Creat Ratio 172 mg/g CRE (0-200)
== END ==
PROVIDERS: Referring Provider Internal Medicine Nephrology; Visit Provider Internal Medicine Nephrology
DX: N18.4 Chronic kidney disease, stage 4 (severe) (principal); D63.1 Anemia in chronic kidney disease
CPT/HCPCS: 36415; 80069; 81002; 82043; 82306; 82570; 82607; 82746; 83970; 84156; 85027; 96372; J0885

== ENCOUNTER → 2018-11-30 11:11 | Outpatient (CLI) | payer MEDICARE, OTHER, SELFPAY ==
[2018-11-13 11:30] VITALS: BMI 42.7
[2018-11-30 11:37] LABS: Hematocrit 33.9 % (37-47); Hemoglobin 10.6 g/dl (12.0-15.0); Mean Corp Hgb Conc 31.3 g/gl (32-36); Mean Corpuscular Hgb 31.5 pg (27.0-32.0); Mean Corpuscular Volume 100.9 fL (81-99); Mean Platelet Vol. 10.2 fl (6.2-12.0); Platelet Count 230 K/mm3 (150-450); RBC Distribution Width CV 14.1 % (11.6-14.6); RBC Distribution Width SD 52.2 fl (35.1-43.9); Red Blood Count 3.36 M/mm3 (4.2-5.4); Scan Indicated on CBC? Y/N NO; White Blood Count 10.2 K/mm3 (4.4-11.0)
[2018-11-30 11:44] VITALS: BP 143/73; PULSE 66; RESP 16; TEMP 36.4; O2SAT 98; BMI 42.7
[2018-11-30 12:26] LABS: ALB/GLOB Ratio 1.1 RATIO (0.9-2.4); AST(SGOT) 15 U/L (15-37); Alanine Aminotransfer ALT/SGPT 24 U/L (13-56); Albumin, Serum 3.3 g/dL (3.2-5.0); Alkaline Phosphatase 90 U/L (45-117); Anion Gap 5 (5-15); BUN 65 mg/dL (7-18); BUN 67 mg/dL (7-18); BUN/Creat Ratio 24.5 RATIO (10-20); BUN/Creat Ratio 25.5 RATIO (10-20); Calcium,Total 8.5 mg/dL (8.5-10.1); Calcium,Total 8.8 mg/dL (8.5-10.1); Chloride 108 mmol/L (98-107); Creatinine, Serum 2.63 mg/dL (0.55-1.02); Creatinine, Serum 2.65 mg/dL (0.55-1.02); EST Glomerular Filtration Rate 19 mL/min (>60); Est Glom Filt Rate - Afr Amer 22 mL/min (>60); Est Glom Filt Rate - Afr Amer 23 mL/min (>60); Estimated Creatinine Clearance 16.38 ml/min; Globulin 3.1 g/dL (2.2-4.2); Glucose 122 mg/dL (74-106); Glucose 124 mg/dL (74-106); Potassium 3.9 mmol/L (3.5-5.1); Protein, Total 6.4 g/dL (6.4-8.2); Sodium Level 139 mmol/L (136-145); Sodium Level 140 mmol/L (136-145)
[2018-11-30 12:39] LABS: Hemoglobin A1c 7.2 % (4.2-6.3)
== END ==
PROVIDERS: Internal Medicine Endocrinology, Diabetes & Metabolism; Referring Provider Internal Medicine Nephrology; Visit Provider Internal Medicine Nephrology
DX: E11.22 Type 2 diabetes mellitus with diabetic chronic kidney disease (principal); N18.4 Chronic kidney disease, stage 4 (severe); D63.1 Anemia in chronic kidney disease; E11.65 Type 2 diabetes mellitus with hyperglycemia; I10 Essential (primary) hypertension; E78.2 Mixed hyperlipidemia; Z79.899 Other long term (current) drug therapy
CPT/HCPCS: 36415; 80053; 80069; 83036; 85027; 96372; J0885

== ENCOUNTER → 2018-12-14 11:15 | Outpatient (CLI) | payer MEDICARE, OTHER, SELFPAY ==
[2018-11-30 11:44] VITALS: BMI 42.7
[2018-12-14 12:02] LABS: Hematocrit 31.9 % (37-47); Hemoglobin 10.1 g/dl (12.0-15.0); Mean Corp Hgb Conc 31.7 g/gl (32-36); Mean Corpuscular Hgb 31.6 pg (27.0-32.0); Mean Corpuscular Volume 99.7 fL (81-99); Mean Platelet Vol. 9.9 fl (6.2-12.0); Platelet Count 222 K/mm3 (150-450); RBC Distribution Width CV 13.8 % (11.6-14.6); RBC Distribution Width SD 50.2 fl (35.1-43.9); White Blood Count 6.1 K/mm3 (4.4-11.0)
[2018-12-14 12:03] LABS: Scan Indicated on CBC? Y/N NO
[2018-12-14 12:06] VITALS: BP 153/59; PULSE 62; RESP 16; TEMP 36.6; O2SAT 98; BMI 42.7
[2018-12-14 12:18] LABS: Albumin, Serum 3.3 g/dL (3.2-5.0); BUN 55 mg/dL (7-18); Calcium,Total 8.8 mg/dL (8.5-10.1); Chloride 110 mmol/L (98-107); EST Glomerular Filtration Rate 20 mL/min (>60); Est Glom Filt Rate - Afr Amer 24 mL/min (>60); Estimated Creatinine Clearance 17.36 ml/min; Glucose 93 mg/dL (74-106); Iron 71 ug/dL (50-170); Iron Binding Capacity,Total 253 ug/dL (250-450); PERCENT IRON SATURATION 28.1 % (15.0-55.0); Phosphorus 3.1 mg/dL (2.5-4.9); Potassium 3.7 mmol/L (3.5-5.1); Sodium Level 142 mmol/L (136-145)
== END ==
PROVIDERS: Referring Provider Internal Medicine Nephrology; Visit Provider Internal Medicine Nephrology
DX: N18.4 Chronic kidney disease, stage 4 (severe) (principal); D63.1 Anemia in chronic kidney disease
CPT/HCPCS: 36415; 80069; 83540; 83550; 85027; 96372; J0885

== ENCOUNTER → 2018-12-28 11:14 | Outpatient (CLI) | payer MEDICARE, OTHER, SELFPAY ==
[2018-12-14 12:06] VITALS: BMI 42.7
[2018-12-28 11:43] LABS: Hematocrit 32.4 % (37-47); Hemoglobin 10.2 g/dl (12.0-15.0)
[2018-12-28 12:08] VITALS: BP 143/70; PULSE 60; RESP 16; TEMP 36.4; O2SAT 98; BMI 42.7
== END ==
PROVIDERS: Referring Provider Internal Medicine Nephrology; Visit Provider Internal Medicine Nephrology
DX: N18.4 Chronic kidney disease, stage 4 (severe) (principal); D63.1 Anemia in chronic kidney disease
CPT/HCPCS: 36415; 85014; 85018; 96372; Q5106

== ENCOUNTER → 2019-01-18 | Outpatient (CLI) | payer MEDICARE, OTHER, SELFPAY ==
[2018-12-14 12:06] VITALS: BMI 42.7
[2019-01-18 11:52] LABS: Hematocrit 33.2 % (37-47); Hemoglobin 10.4 g/dl (12.0-15.0); Mean Corp Hgb Conc 31.3 g/gl (32-36); Mean Corpuscular Volume 98.8 fL (81-99); Mean Platelet Vol. 10.4 fl (6.2-12.0); Platelet Count 251 K/mm3 (150-450); RBC Distribution Width CV 13.7 % (11.6-14.6); RBC Distribution Width SD 49.2 fl (35.1-43.9); Red Blood Count 3.36 M/mm3 (4.2-5.4); White Blood Count 7.5 K/mm3 (4.4-11.0)
[2019-01-18 11:54] LABS: Scan Indicated on CBC? Y/N NO
[2019-01-18 12:00] LABS: Albumin, Serum 3.4 g/dL (3.2-5.0); BUN 65 mg/dL (7-18); BUN/Creat Ratio 24.8 RATIO (10-20); Calcium,Total 8.9 mg/dL (8.5-10.1); Chloride 108 mmol/L (98-107); Creatinine, Serum 2.62 mg/dL (0.55-1.02); EST Glomerular Filtration Rate 19 mL/min (>60); Est Glom Filt Rate - Afr Amer 23 mL/min (>60); Glucose 83 mg/dL (74-106); Phosphorus 3.1 mg/dL (2.5-4.9); Potassium 3.6 mmol/L (3.5-5.1); Sodium Level 141 mmol/L (136-145)
[2019-01-18 12:15] VITALS: BP 140/73; PULSE 82; RESP 16; TEMP 36.6; O2SAT 98; BMI 42.7
[2019-01-18] MEDS: Epoetin Alfa epbx 10,000 UNITS/ML 10000 UNIT SC (12:25)
== END | disposition home or self-care (01) ==
LOC: MEDOUTP 11:17
PROVIDERS: Referring Provider Internal Medicine Nephrology; Visit Provider Internal Medicine Nephrology
DX: N18.4 Chronic kidney disease, stage 4 (severe) (principal); D63.1 Anemia in chronic kidney disease
CPT/HCPCS: 36415; 80069; 85027; 96372; Q5106

== ENCOUNTER → 2019-02-04 | Outpatient (CLI) | payer MEDICARE, OTHER, SELFPAY ==
[2019-01-18 12:15] VITALS: BMI 42.7
[2019-02-04 11:41] VITALS: BP 145/63; PULSE 58; RESP 16; TEMP 35.9; O2SAT 98; BMI 42.7
[2019-02-04 11:46] LABS: Hematocrit 33.7 % (37-47); Hemoglobin 10.5 g/dl (12.0-15.0)
[2019-02-04] MEDS: Epoetin Alfa epbx 10,000 UNITS/ML 10000 UNIT SC (12:16)
[2019-02-04 19:26] LABS: Xtra Tube EP Lab EXTRA TUBE
== END | disposition home or self-care (01) ==
LOC: MEDOUTP 11:17
PROVIDERS: Referring Provider Internal Medicine Nephrology; Visit Provider Internal Medicine Nephrology
DX: N18.4 Chronic kidney disease, stage 4 (severe) (principal); D63.1 Anemia in chronic kidney disease
CPT/HCPCS: 36415; 85014; 85018; 96372; Q5106

== ENCOUNTER → 2019-02-22 | Outpatient (CLI) | payer MEDICARE, OTHER, SELFPAY ==
[2019-01-18 12:15] VITALS: BMI 42.7
[2019-02-22 11:36] VITALS: PULSE 56; RESP 18; TEMP 36.4; O2SAT 98; BMI 42.7
[2019-02-22 12:05] LABS: Hematocrit 33.2 % (37-47); Hemoglobin 10.5 g/dl (12.0-15.0); Mean Corp Hgb Conc 31.6 g/gl (32-36); Mean Corpuscular Hgb 31.3 pg (27.0-32.0); Mean Corpuscular Volume 98.8 fL (81-99); Mean Platelet Vol. 10.9 fl (6.2-12.0); Platelet Count 230 K/mm3 (150-450); RBC Distribution Width CV 13.4 % (11.6-14.6); RBC Distribution Width SD 47.3 fl (35.1-43.9); Red Blood Count 3.36 M/mm3 (4.2-5.4); White Blood Count 7.4 K/mm3 (4.4-11.0)
[2019-02-22 12:07] LABS: Scan Indicated on CBC? Y/N NO
[2019-02-22 12:22] LABS: Albumin, Serum 3.3 g/dL (3.2-5.0); BUN 64 mg/dL (7-18); Calcium,Total 9.1 mg/dL (8.5-10.1); Chloride 107 mmol/L (98-107); Creatinine, Serum 2.46 mg/dL (0.55-1.02); EST Glomerular Filtration Rate 20 mL/min (>60); Est Glom Filt Rate - Afr Amer 24 mL/min (>60); Ferritin 121 ng/mL (8-252); Glucose 139 mg/dL (74-106); Iron 65 ug/dL (50-170); Iron Binding Capacity,Total 231 ug/dL (250-450); PERCENT IRON SATURATION 28.1 % (15.0-55.0); Phosphorus 3.1 mg/dL (2.5-4.9); Potassium 3.8 mmol/L (3.5-5.1); Sodium Level 140 mmol/L (136-145)
[2019-02-22] MEDS: Epoetin Alfa epbx 10,000 UNITS/ML 10000 UNIT SC (12:33)
== END | disposition home or self-care (01) ==
LOC: MEDOUTP 11:20
PROVIDERS: Referring Provider Internal Medicine Nephrology; Visit Provider Internal Medicine Nephrology
DX: N18.4 Chronic kidney disease, stage 4 (severe) (principal); D63.1 Anemia in chronic kidney disease
CPT/HCPCS: 36415; 80069; 82728; 83540; 83550; 85027; 96372; Q5106

== ENCOUNTER → 2019-03-08 | Outpatient (CLI) | payer MEDICARE, OTHER, SELFPAY ==
[2019-02-22 11:36] VITALS: BMI 42.7
[2019-03-08 12:01] VITALS: BP 146/65; PULSE 53; RESP 16; TEMP 36.5; O2SAT 96; BMI 42.7
[2019-03-08 12:13] LABS: Hematocrit 33.3 % (37-47); Hemoglobin 10.5 g/dl (12.0-15.0)
[2019-03-08 12:24] LABS: Anion Gap 4 (5-15); BUN 67 mg/dL (7-18); BUN/Creat Ratio 27.3 RATIO (10-20); Calcium,Total 9.1 mg/dL (8.5-10.1); Chloride 108 mmol/L (98-107); Creatinine, Serum 2.45 mg/dL (0.55-1.02); EST Glomerular Filtration Rate 20 mL/min (>60); Est Glom Filt Rate - Afr Amer 24 mL/min (>60); Estimated Creatinine Clearance 17.43 ml/min; Glucose 123 mg/dL (74-106); Potassium 3.8 mmol/L (3.5-5.1); Sodium Level 139 mmol/L (136-145)
[2019-03-08] MEDS: Epoetin Alfa epbx 10,000 UNITS/ML 10000 UNIT SC (12:26)
[2019-03-08 12:32] LABS: Hemoglobin A1c 7.8 % (4.2-6.3)
== END | disposition home or self-care (01) ==
LOC: MEDOUTP 11:21
PROVIDERS: Referring Provider Internal Medicine Nephrology; Visit Provider Internal Medicine Nephrology
DX: E11.22 Type 2 diabetes mellitus with diabetic chronic kidney disease (principal); I12.9 Hypertensive chronic kidney disease with stage 1 through stage 4 chronic kidney disease, or unspecified chronic kidney disease; N18.4 Chronic kidney disease, stage 4 (severe); D63.1 Anemia in chronic kidney disease; E11.65 Type 2 diabetes mellitus with hyperglycemia; E78.2 Mixed hyperlipidemia; Z79.899 Other long term (current) drug therapy
CPT/HCPCS: 36415; 80048; 83036; 85014; 85018; 96372; Q5106

== ENCOUNTER → 2019-03-22 | Outpatient (CLI) | payer MEDICARE, OTHER, SELFPAY ==
[2019-03-08 12:01] VITALS: BMI 42.7
[2019-03-22 12:00] VITALS: BP 135/55; PULSE 57; RESP 16; TEMP 36.4; O2SAT 99; BMI 42.7
[2019-03-22 12:23] LABS: Hematocrit 31.2 % (37-47); Hemoglobin 9.9 g/dl (12.0-15.0); Mean Corp Hgb Conc 31.7 g/gl (32-36); Mean Corpuscular Hgb 30.9 pg (27.0-32.0); Mean Corpuscular Volume 97.5 fL (81-99); Mean Platelet Vol. 9.6 fl (6.2-12.0); Platelet Count 266 K/mm3 (150-450); RBC Distribution Width CV 13.7 % (11.6-14.6); RBC Distribution Width SD 48.2 fl (35.1-43.9); White Blood Count 7.4 K/mm3 (4.4-11.0)
[2019-03-22 12:25] LABS: Scan Indicated on CBC? Y/N NO
[2019-03-22] MEDS: Epoetin Alfa epbx 10,000 UNITS/ML 10000 UNIT SC (12:43)
[2019-03-22 13:10] LABS: Albumin, Serum 3.1 g/dL (3.2-5.0); BUN 75 mg/dL (7-18); BUN/Creat Ratio 30.1 RATIO (10-20); Calcium,Total 8.8 mg/dL (8.5-10.1); Chloride 109 mmol/L (98-107); Creatinine, Serum 2.49 mg/dL (0.55-1.02); EST Glomerular Filtration Rate 20 mL/min (>60); Est Glom Filt Rate - Afr Amer 24 mL/min (>60); Estimated Creatinine Clearance 17.15 ml/min; Glucose 141 mg/dL (74-106); Phosphorus 2.7 mg/dL (2.5-4.9); Potassium 4.1 mmol/L (3.5-5.1); Sodium Level 143 mmol/L (136-145)
[2019-03-22 13:13] LABS: Color, Urine Yellow (Yellow); Glucose, Dipstick Normal (Normal); Ketone-Dipstick Negative (Negative); Leukocyte Esterase-Dipstick 25 /ul (Negative); Nitrite-Dipstick Negative (Negative); Occult Blood-Urine Negative /ul (Negative); Protein-Dipstick Negative (Negative); Urine Bilirubin Dipstick Negative (Negative); Urine Clarity Clear (Clear); Urine Urobilinogen Normal (Normal)
[2019-03-22 13:16] LABS: PTHIN 200.6 pg/mL (18.4-80.1)
[2019-03-22 13:37] LABS: Microalbumin,Random Urine < 5.0 mg/L (NO RANGE EST.); Protein:Creat Ratio 244 mg/g CRE (0-200)
== END | disposition home or self-care (01) ==
LOC: MEDOUTP 11:23
PROVIDERS: Referring Provider Internal Medicine Nephrology; Visit Provider Internal Medicine Nephrology
DX: N18.4 Chronic kidney disease, stage 4 (severe) (principal); D63.1 Anemia in chronic kidney disease
CPT/HCPCS: 36415; 80069; 81002; 82043; 82306; 82570; 83970; 84156; 85027; 96372; Q5106

== ENCOUNTER → 2019-04-05 11:18 | Outpatient (CLI) | payer MEDICARE, OTHER, SELFPAY ==
[2019-03-22 12:00] VITALS: BMI 42.7
[2019-04-05 11:40] VITALS: BP 101/66; PULSE 57; RESP 16; TEMP 36.6; O2SAT 97; BMI 42.7
[2019-04-05 11:40] LABS: Hematocrit 34.1 % (37-47); Hemoglobin 10.8 g/dL (12.0-15.0)
[2019-04-05] MEDS: Epoetin Alfa epbx 10,000 UNITS/ML 10000 UNIT SC (11:58)
[2019-04-05 19:36] LABS: Xtra Tube EP Lab EXTRA TUBE
== END ==
PROVIDERS: Referring Provider Internal Medicine Nephrology; Visit Provider Internal Medicine Nephrology
DX: N18.4 Chronic kidney disease, stage 4 (severe) (principal); D63.1 Anemia in chronic kidney disease
CPT/HCPCS: 36415; 85014; 85018; 96372; Q5106

== ENCOUNTER → 2019-04-19 11:19 | Outpatient (CLI) | payer MEDICARE, OTHER, SELFPAY ==
[2019-04-05 11:40] VITALS: BMI 42.7
[2019-04-19 11:37] LABS: Hematocrit 34.1 % (37-47); Hemoglobin 10.7 g/dL (12.0-15.0); Mean Corp Hgb Conc 31.4 g/dL (32-36); Mean Corpuscular Hgb 31.7 pg (27.0-32.0); Mean Corpuscular Volume 100.9 fL (81-99); Mean Platelet Vol. 10.6 fl (6.2-12.0); Platelet Count 247 K/mm3 (150-450); RBC Distribution Width CV 13.4 % (11.6-14.6); RBC Distribution Width SD 49.5 fl (35.1-43.9); Red Blood Count 3.38 M/mm3 (4.2-5.4); White Blood Count 7.2 K/mm3 (4.4-11.0)
[2019-04-19 11:38] VITALS: BP 126/48; PULSE 57; RESP 18; TEMP 36.4; O2SAT 95; BMI 42.7
[2019-04-19] MEDS: Epoetin Alfa epbx 10,000 UNITS/ML 10000 UNIT SC (11:56)
[2019-04-19 12:02] LABS: Albumin, Serum 3.4 g/dL (3.2-5.0); BUN 66 mg/dL (7-18); BUN/Creat Ratio 26.6 RATIO (10-20); Chloride 108 mmol/L (98-107); Creatinine, Serum 2.48 mg/dL (0.55-1.02); EST Glomerular Filtration Rate 20 mL/min (>60); Est Glom Filt Rate - Afr Amer 24 mL/min (>60); Estimated Creatinine Clearance 17.22 ml/min; Glucose 72 mg/dL (74-106); Phosphorus 3.2 mg/dL (2.5-4.9); Potassium 3.5 mmol/L (3.5-5.1); Sodium Level 141 mmol/L (136-145)
== END ==
PROVIDERS: Referring Provider Internal Medicine Nephrology; Visit Provider Internal Medicine Nephrology
DX: N18.4 Chronic kidney disease, stage 4 (severe) (principal); D63.1 Anemia in chronic kidney disease
CPT/HCPCS: 36415; 80069; 85027; 96372; Q5106

== ENCOUNTER → 2019-05-03 | Outpatient (CLI) | payer MEDICARE, OTHER, SELFPAY ==
[2019-04-19 11:38] VITALS: BMI 42.7
[2019-05-03 11:31] VITALS: BP 138/64; PULSE 58; RESP 16; TEMP 36.2; O2SAT 97; BMI 42.7
[2019-05-03 12:03] LABS: Hematocrit 32.7 % (37-47); Hemoglobin 10.2 g/dL (12.0-15.0)
[2019-05-03] MEDS: Epoetin Alfa epbx 10,000 UNITS/ML 10000 UNIT SC (12:23)
== END | disposition home or self-care (01) ==
LOC: MEDOUTP 11:22
PROVIDERS: Referring Provider Internal Medicine Nephrology; Visit Provider Internal Medicine Nephrology
DX: N18.4 Chronic kidney disease, stage 4 (severe) (principal); D63.1 Anemia in chronic kidney disease
CPT/HCPCS: 36415; 85014; 85018; 96372; Q5106

== ENCOUNTER → 2019-05-17 | Outpatient (CLI) | payer MEDICARE, OTHER, SELFPAY ==
[2019-05-03 11:31] VITALS: BMI 42.7
[2019-05-17 11:35] VITALS: BP 155/95; PULSE 58; RESP 16; TEMP 36.3; O2SAT 97; BMI 42.7
[2019-05-17 11:42] LABS: Absolute Lymphocyte Count 1.45 X10^3/uL (0.83-4.51); Absolute Neutrophil Count 4.2 X10^3/uL (2.0-7.7); Basophil# 0.05 X10^3/uL; Basophil% 0.7 % (0-1); Eosinophils% 4.4 % (0-5); Hematocrit 33.1 % (37-47); Hemoglobin 10.1 g/dL (12.0-15.0); Lymphocyte # 1.45 X10^3/ul (4.0); Lymphocyte % 21.5 % (19-41); Mean Corp Hgb Conc 30.5 g/dL (32-36); Mean Corpuscular Hgb 30.8 pg (27.0-32.0); Mean Corpuscular Volume 100.9 fL (81-99); Mean Platelet Vol. 10.2 fl (6.2-12.0); Monocyte# 0.76 X10^3/uL; Monocyte% 11.3 % (0-10); NRBC Flagged by Analyzer 0 % (0-5); Neutrophil # 4.17 X10^3/uL (2.7-7.7); Neutrophil % 61.8 % (47-70); Platelet Count 229 K/mm3 (150-450); RBC Distribution Width CV 13.6 % (11.6-14.6); RBC Distribution Width SD 50.8 fl (35.1-43.9); Red Blood Count 3.28 M/mm3 (4.2-5.4); White Blood Count 6.8 K/mm3 (4.4-11.0)
[2019-05-17] MEDS: Epoetin Alfa epbx 10,000 UNITS/ML 10000 UNIT SC (11:58)
[2019-05-17 12:01] LABS: Albumin, Serum 3.2 g/dL (3.2-5.0); BUN 67 mg/dL (7-18); BUN/Creat Ratio 26.6 RATIO (10-20); Calcium,Total 8.8 mg/dL (8.5-10.1); Chloride 112 mmol/L (98-107); Creatinine, Serum 2.52 mg/dL (0.55-1.02); EST Glomerular Filtration Rate 20 mL/min (>60); Est Glom Filt Rate - Afr Amer 24 mL/min (>60); Estimated Creatinine Clearance 16.95 ml/min; Glucose 144 mg/dL (74-106); Phosphorus 3.5 mg/dL (2.5-4.9); Potassium 3.9 mmol/L (3.5-5.1); Sodium Level 147 mmol/L (136-145)
== END | disposition home or self-care (01) ==
LOC: MEDOUTP 11:20
PROVIDERS: Referring Provider Internal Medicine Nephrology; Visit Provider Internal Medicine Nephrology
DX: N18.4 Chronic kidney disease, stage 4 (severe) (principal); D63.1 Anemia in chronic kidney disease
CPT/HCPCS: 36415; 80069; 85025; 96372; Q5106

== ENCOUNTER → 2019-06-03 11:16 | Outpatient (CLI) | payer MEDICARE, OTHER, SELFPAY ==
[2019-05-17 11:35] VITALS: BMI 42.7
[2019-06-03 11:38] LABS: Hematocrit 33.6 % (37-47); Hemoglobin 10.5 g/dL (12.0-15.0)
[2019-06-03 11:51] VITALS: BP 134/65; PULSE 60; RESP 16; TEMP 36.6; O2SAT 94; BMI 42.7
[2019-06-03 12:04] LABS: Ferritin 124 ng/mL (8-252); Iron 56 ug/dL (50-170); Iron Binding Capacity,Total 236 ug/dL (250-450)
[2019-06-03] MEDS: Epoetin Alfa epbx 10,000 UNITS/ML 10000 UNIT SC (12:20)
== END ==
PROVIDERS: Referring Provider Internal Medicine Nephrology; Visit Provider Internal Medicine Nephrology
DX: N18.4 Chronic kidney disease, stage 4 (severe) (principal); D63.1 Anemia in chronic kidney disease
CPT/HCPCS: 36415; 82728; 83540; 83550; 85014; 85018; 96372; Q5106

== ENCOUNTER → 2019-06-15 09:26 | Outpatient (CLI) | payer MEDICARE, OTHER, SELFPAY ==
[2019-06-03 11:51] VITALS: BMI 42.7
[2019-06-15 10:57] LABS: Hemoglobin A1c 6.5 % (4.2-6.3)
[2019-06-15 11:18] LABS: Anion Gap 6 (5-15); BUN 55 mg/dL (7-18); BUN/Creat Ratio 25.3 RATIO (10-20); Calcium,Total 8.9 mg/dL (8.5-10.1); Chloride 111 mmol/L (98-107); Creatinine, Serum 2.17 mg/dL (0.55-1.02); EST Glomerular Filtration Rate 23 mL/min (>60); Est Glom Filt Rate - Afr Amer 28 mL/min (>60); Glucose 180 mg/dL (74-106); Sodium Level 143 mmol/L (136-145); T4 Free Direct 1.12 ng/dL (0.76-1.46); Thyroid Stim Hormone (TSH) 1.08 uIU/mL (0.358-3.74)
== END ==
PROVIDERS: Referring Provider Internal Medicine Endocrinology, Diabetes & Metabolism; Visit Provider Internal Medicine Endocrinology, Diabetes & Metabolism
DX: E11.65 Type 2 diabetes mellitus with hyperglycemia (principal)
CPT/HCPCS: 36415; 80048; 83036; 84439; 84443

== ENCOUNTER → 2019-06-21 11:19 | Outpatient (CLI) | payer MEDICARE, OTHER, SELFPAY ==
[2019-06-03 11:51] VITALS: BMI 42.7
[2019-06-21 11:27] VITALS: BP 145/61; PULSE 54; RESP 16; TEMP 36.6; O2SAT 96; BMI 42.7
[2019-06-21 11:40] LABS: Hemoglobin 9.8 g/dL (12.0-15.0); Mean Corp Hgb Conc 30.6 g/dL (32-36); Mean Corpuscular Hgb 30.9 pg (27.0-32.0); Mean Corpuscular Volume 100.9 fL (81-99); Mean Platelet Vol. 10.3 fl (6.2-12.0); Platelet Count 221 K/mm3 (150-450); RBC Distribution Width CV 13.6 % (11.6-14.6); RBC Distribution Width SD 50.6 fl (35.1-43.9); Red Blood Count 3.17 M/mm3 (4.2-5.4); White Blood Count 6.9 K/mm3 (4.4-11.0)
[2019-06-21 11:53] LABS: Albumin, Serum 3.1 g/dL (3.2-5.0); BUN 57 mg/dL (7-18); Calcium,Total 8.7 mg/dL (8.5-10.1); Chloride 113 mmol/L (98-107); Creatinine, Serum 2.28 mg/dL (0.55-1.02); EST Glomerular Filtration Rate 22 mL/min (>60); Est Glom Filt Rate - Afr Amer 27 mL/min (>60); Estimated Creatinine Clearance 18.73 ml/min; Glucose 190 mg/dL (74-106); Phosphorus 2.6 mg/dL (2.5-4.9); Sodium Level 144 mmol/L (136-145)
[2019-06-21] MEDS: Epoetin Alfa epbx 10,000 UNITS/ML 10000 UNIT SC (12:06)
== END ==
PROVIDERS: Referring Provider Internal Medicine Nephrology; Visit Provider Internal Medicine Nephrology
DX: N18.4 Chronic kidney disease, stage 4 (severe) (principal); D63.1 Anemia in chronic kidney disease
CPT/HCPCS: 36415; 80069; 85027; 96372; Q5106

== ENCOUNTER → 2019-07-05 11:18 | Outpatient (CLI) | payer MEDICARE, OTHER, SELFPAY ==
[2019-06-21 11:27] VITALS: BMI 42.7
[2019-07-05 11:50] VITALS: BP 154/80; PULSE 58; RESP 16; TEMP 36.4; O2SAT 97; BMI 42.7
[2019-07-05 11:52] LABS: Hematocrit 34.4 % (37-47); Hemoglobin 10.6 g/dL (12.0-15.0)
[2019-07-05] MEDS: Epoetin Alfa epbx 10,000 UNITS/ML 10000 UNIT SC (12:08)
[2019-07-05 12:12] LABS: Ferritin 92 ng/mL (8-252); Iron 70 ug/dL (50-170); Iron Binding Capacity,Total 296 ug/dL (250-450); PERCENT IRON SATURATION 23.6 % (15.0-55.0)
== END ==
PROVIDERS: Referring Provider Internal Medicine Nephrology; Visit Provider Internal Medicine Nephrology
DX: N18.4 Chronic kidney disease, stage 4 (severe) (principal); D63.1 Anemia in chronic kidney disease
CPT/HCPCS: 36415; 82728; 83540; 83550; 85014; 85018; 96372; Q5106

== ENCOUNTER → 2019-07-19 11:21 | Outpatient (CLI) | payer MEDICARE, OTHER, SELFPAY ==
[2019-07-05 11:50] VITALS: BMI 42.7
[2019-07-19 11:33] VITALS: BP 139/54; PULSE 56; RESP 16; TEMP 36.9; O2SAT 100; BMI 42.7
[2019-07-19 11:55] LABS: Hematocrit 33.4 % (37-47); Hemoglobin 10.4 g/dL (12.0-15.0); Mean Corp Hgb Conc 31.1 g/dL (32-36); Mean Corpuscular Hgb 31.3 pg (27.0-32.0); Mean Corpuscular Volume 100.6 fL (81-99); Mean Platelet Vol. 10.6 fl (6.2-12.0); Platelet Count 241 K/mm3 (150-450); RBC Distribution Width CV 13.7 % (11.6-14.6); RBC Distribution Width SD 51.1 fl (35.1-43.9); Red Blood Count 3.32 M/mm3 (4.2-5.4); White Blood Count 6.5 K/mm3 (4.4-11.0)
[2019-07-19 12:02] LABS: Albumin, Serum 3.4 g/dL (3.2-5.0); BUN 72 mg/dL (7-18); BUN/Creat Ratio 29.6 RATIO (10-20); Calcium,Total 9.1 mg/dL (8.5-10.1); Chloride 111 mmol/L (98-107); Creatinine, Serum 2.43 mg/dL (0.55-1.02); EST Glomerular Filtration Rate 20 mL/min (>60); Est Glom Filt Rate - Afr Amer 25 mL/min (>60); Estimated Creatinine Clearance 17.57 ml/min; Glucose 124 mg/dL (74-106); Phosphorus 3.3 mg/dL (2.5-4.9); Potassium 4.1 mmol/L (3.5-5.1); Sodium Level 142 mmol/L (136-145)
[2019-07-19] MEDS: Epoetin Alfa epbx 10,000 UNITS/ML 10000 UNIT SC (12:15)
== END ==
PROVIDERS: Referring Provider Internal Medicine Nephrology; Visit Provider Internal Medicine Nephrology
DX: N18.4 Chronic kidney disease, stage 4 (severe) (principal); D63.1 Anemia in chronic kidney disease
CPT/HCPCS: 36415; 80069; 85027; 96372; Q5106

== ENCOUNTER → 2019-08-05 11:20 | Outpatient (CLI) | payer MEDICARE, OTHER, SELFPAY ==
[2019-07-19 11:33] VITALS: BMI 42.7
[2019-08-05 11:43] LABS: Hematocrit 32.3 % (37-47); Hemoglobin 9.9 g/dL (12.0-15.0)
[2019-08-05 12:00] VITALS: BP 136/55; PULSE 53; RESP 16; TEMP 36.5; O2SAT 96; BMI 42.7
[2019-08-05] MEDS: Epoetin Alfa epbx 10,000 UNITS/ML 10000 UNIT SC (12:15)
== END ==
PROVIDERS: Referring Provider Internal Medicine Nephrology; Visit Provider Internal Medicine Nephrology
DX: N18.4 Chronic kidney disease, stage 4 (severe) (principal); D63.1 Anemia in chronic kidney disease
CPT/HCPCS: 36415; 85014; 85018; 96372; Q5106

== ENCOUNTER → 2019-08-23 11:19 | Outpatient (CLI) | payer MEDICARE, OTHER, SELFPAY ==
[2019-07-19 11:33] VITALS: BMI 42.7
[2019-08-23 11:46] LABS: Hematocrit 33.1 % (37-47); Hemoglobin 10.4 g/dL (12.0-15.0); Mean Corp Hgb Conc 31.4 g/dL (32-36); Mean Corpuscular Volume 98.8 fL (81-99); Mean Platelet Vol. 10.4 fl (6.2-12.0); Platelet Count 212 K/mm3 (150-450); RBC Distribution Width CV 13.6 % (11.6-14.6); RBC Distribution Width SD 48.9 fl (35.1-43.9); Red Blood Count 3.35 M/mm3 (4.2-5.4); White Blood Count 7.1 K/mm3 (4.4-11.0)
[2019-08-23 12:00] VITALS: BP 143/64; PULSE 58; RESP 16; TEMP 36.1; O2SAT 97; BMI 42.7
[2019-08-23 12:00] LABS: Albumin, Serum 3.5 g/dL (3.2-5.0); BUN 70 mg/dL (7-18); Calcium,Total 9.1 mg/dL (8.5-10.1); Chloride 110 mmol/L (98-107); EST Glomerular Filtration Rate 20 mL/min (>60); Est Glom Filt Rate - Afr Amer 24 mL/min (>60); Glucose 149 mg/dL (74-106); Phosphorus 2.9 mg/dL (2.5-4.9); Potassium 3.9 mmol/L (3.5-5.1); Sodium Level 141 mmol/L (136-145)
[2019-08-23 12:01] LABS: Glucose, Dipstick Normal (Normal); Ketone-Dipstick Negative (Negative); Leukocyte Esterase-Dipstick Negative /ul (Negative); Nitrite-Dipstick Negative (Negative); Occult Blood-Urine Negative /ul (Negative); Protein-Dipstick Negative (Negative); Urine Bilirubin Dipstick Negative (Negative); Urine Urobilinogen Normal (Normal)
[2019-08-23 12:06] LABS: Color, Urine Yellow (Yellow); Urine Clarity Clear (Clear)
[2019-08-23] MEDS: Epoetin Alfa epbx 10,000 UNITS/ML 10000 UNIT SC (12:07)
[2019-08-23 12:20] LABS: Vitamin D,25 Hydroxy 51.9 ng/mL (29.95-100.01)
[2019-08-23 12:22] LABS: PTHIN 238.3 pg/mL (18.4-80.1)
[2019-08-23 12:26] LABS: Microalbumin,Random Urine 6.6 mg/L (NO RANGE EST.); Microalbumin:Creatinine Ratio 18.9 mg/g CRE (<30 mg/g CRE); Protein, Urine (Random) 8.1 mg/dL (<11.9); Protein:Creat Ratio 231 mg/g CRE (0-200)
== END ==
PROVIDERS: Referring Provider Internal Medicine Nephrology; Visit Provider Internal Medicine Nephrology
DX: N18.4 Chronic kidney disease, stage 4 (severe) (principal); D63.1 Anemia in chronic kidney disease
CPT/HCPCS: 36415; 80069; 81002; 82043; 82306; 82570; 83970; 84156; 85027; 96372; Q5106

== ENCOUNTER → 2019-09-09 11:18 | Outpatient (CLI) | payer MEDICARE, OTHER, SELFPAY ==
[2019-08-23 12:00] VITALS: BMI 42.7
[2019-09-09 11:50] VITALS: BP 132/68; PULSE 61; RESP 16; TEMP 35.7; O2SAT 94; BMI 42.7
[2019-09-09 11:50] LABS: Hematocrit 33.7 % (37-47); Hemoglobin 10.7 g/dL (12.0-15.0)
[2019-09-09 12:06] LABS: ALB/GLOB Ratio 1.1 RATIO (0.9-2.4); AST(SGOT) 13 U/L (15-37); Alanine Aminotransfer ALT/SGPT 16 U/L (13-56); Albumin, Serum 3.6 g/dL (3.2-5.0); Alkaline Phosphatase 96 U/L (45-117); Anion Gap 7 (5-15); BUN 93 mg/dL (7-18); BUN/Creat Ratio 36.2 RATIO (10-20); Calcium,Total 9.6 mg/dL (8.5-10.1); Chloride 112 mmol/L (98-107); Creatinine, Serum 2.57 mg/dL (0.55-1.02); EST Glomerular Filtration Rate 19 mL/min (>60); Est Glom Filt Rate - Afr Amer 23 mL/min (>60); Globulin 3.3 g/dL (2.2-4.2); Glucose 133 mg/dL (74-106); Potassium 3.7 mmol/L (3.5-5.1); Protein, Total 6.9 g/dL (6.4-8.2); Sodium Level 142 mmol/L (136-145)
[2019-09-09 12:10] LABS: Hemoglobin A1c 6.9 % (4.2-6.3)
[2019-09-09] MEDS: Epoetin Alfa epbx 10,000 UNITS/ML 10000 UNIT SC (12:15)
== END ==
PROVIDERS: Referring Provider Internal Medicine Nephrology; Visit Provider Internal Medicine Nephrology
DX: E11.22 Type 2 diabetes mellitus with diabetic chronic kidney disease (principal); I12.9 Hypertensive chronic kidney disease with stage 1 through stage 4 chronic kidney disease, or unspecified chronic kidney disease; N18.4 Chronic kidney disease, stage 4 (severe); D63.1 Anemia in chronic kidney disease; E11.65 Type 2 diabetes mellitus with hyperglycemia; E78.2 Mixed hyperlipidemia; Z79.899 Other long term (current) drug therapy
CPT/HCPCS: 36415; 80053; 83036; 85014; 85018; 96372; Q5106

== ENCOUNTER → 2019-09-27 11:27 | Outpatient (CLI) | payer MEDICARE, OTHER, SELFPAY ==
[2019-09-09 11:50] VITALS: BMI 42.7
[2019-09-27 11:43] VITALS: BP 158/73; PULSE 57; RESP 16; TEMP 36.7; BMI 42.4
[2019-09-27 11:57] LABS: Hemoglobin 10.6 g/dL (12.0-15.0); Mean Corp Hgb Conc 31.2 g/dL (32-36); Mean Corpuscular Hgb 31.5 pg (27.0-32.0); Mean Corpuscular Volume 101.2 fL (81-99); Mean Platelet Vol. 10.8 fl (6.2-12.0); Platelet Count 223 K/mm3 (150-450); RBC Distribution Width CV 13.5 % (11.6-14.6); RBC Distribution Width SD 50.5 fl (35.1-43.9); Red Blood Count 3.36 M/mm3 (4.2-5.4); White Blood Count 7.6 K/mm3 (4.4-11.0)
[2019-09-27 12:07] LABS: Albumin, Serum 3.3 g/dL (3.2-5.0); BUN 74 mg/dL (7-18); BUN/Creat Ratio 28.7 RATIO (10-20); Calcium,Total 9.3 mg/dL (8.5-10.1); Chloride 109 mmol/L (98-107); Creatinine, Serum 2.58 mg/dL (0.55-1.02); EST Glomerular Filtration Rate 19 mL/min (>60); Est Glom Filt Rate - Afr Amer 23 mL/min (>60); Estimated Creatinine Clearance 16.55 ml/min; Glucose 220 mg/dL (74-106); Phosphorus 2.6 mg/dL (2.5-4.9); Potassium 4.2 mmol/L (3.5-5.1); Sodium Level 141 mmol/L (136-145)
[2019-09-27] MEDS: Epoetin Alfa epbx 10,000 UNITS/ML 10000 UNIT SC (12:24)
== END ==
PROVIDERS: Referring Provider Internal Medicine Nephrology; Visit Provider Internal Medicine Nephrology
DX: N18.4 Chronic kidney disease, stage 4 (severe) (principal); D63.1 Anemia in chronic kidney disease
CPT/HCPCS: 36415; 80069; 85027; 96372; Q5106

== ENCOUNTER → 2019-10-11 11:21 | Outpatient (CLI) | payer MEDICARE, OTHER, SELFPAY ==
[2019-09-09 11:50] VITALS: BMI 42.7
[2019-10-11 11:48] LABS: Hematocrit 33.8 % (37-47); Hemoglobin 10.6 g/dL (12.0-15.0)
[2019-10-11 11:58] VITALS: BP 123/49; PULSE 55; RESP 18; TEMP 36; O2SAT 96; BMI 42.7
[2019-10-11] MEDS: Epoetin Alfa epbx 10,000 UNITS/ML 10000 UNIT SC (12:01)
[2019-10-11 12:14] LABS: Ferritin 99 ng/mL (8-252); Iron 65 ug/dL (50-170); Iron Binding Capacity,Total 245 ug/dL (250-450); PERCENT IRON SATURATION 26.5 % (15.0-55.0)
== END ==
PROVIDERS: Referring Provider Internal Medicine Nephrology; Visit Provider Internal Medicine Nephrology
DX: N18.4 Chronic kidney disease, stage 4 (severe) (principal); D63.1 Anemia in chronic kidney disease
CPT/HCPCS: 36415; 82728; 83540; 83550; 85014; 85018; 96372; Q5106

== ENCOUNTER → 2019-10-28 11:24 | Outpatient (CLI) | payer MEDICARE, OTHER, SELFPAY ==
[2019-10-11 11:58] VITALS: BMI 42.7
[2019-10-28 12:00] LABS: Hematocrit 34.2 % (37-47); Hemoglobin 10.6 g/dL (12.0-15.0); Mean Corpuscular Hgb 31.1 pg (27.0-32.0); Mean Corpuscular Volume 100.3 fL (81-99); Mean Platelet Vol. 10.8 fl (6.2-12.0); Platelet Count 222 K/mm3 (150-450); RBC Distribution Width CV 13.9 % (11.6-14.6); RBC Distribution Width SD 50.5 fl (35.1-43.9); Red Blood Count 3.41 M/mm3 (4.2-5.4); White Blood Count 6.6 K/mm3 (4.4-11.0)
[2019-10-28 12:12] LABS: BUN 76 mg/dL (7-18); Creatinine, Serum 2.44 mg/dL (0.55-1.02); Glucose 102 mg/dL (74-106)
[2019-10-28 12:13] LABS: Albumin, Serum 3.2 g/dL (3.2-5.0); BUN/Creat Ratio 31.1 RATIO (10-20); Calcium,Total 9.6 mg/dL (8.5-10.1); Chloride 111 mmol/L (98-107); EST Glomerular Filtration Rate 20 mL/min (>60); Est Glom Filt Rate - Afr Amer 25 mL/min (>60); Potassium 3.9 mmol/L (3.5-5.1); Sodium Level 143 mmol/L (136-145)
[2019-10-28] MEDS: Epoetin Alfa epbx 10,000 UNITS/ML 10000 UNIT SC (12:25)
[2019-10-28 12:29] VITALS: BP 161/68; PULSE 54; RESP 16; TEMP 36.2; O2SAT 96; BMI 42.7
== END ==
PROVIDERS: Referring Provider Internal Medicine Nephrology; Visit Provider Internal Medicine Nephrology
DX: N18.4 Chronic kidney disease, stage 4 (severe) (principal); D63.1 Anemia in chronic kidney disease
CPT/HCPCS: 36415; 80069; 85027; 96372; Q5106

== ENCOUNTER → 2019-11-08 11:19 | Outpatient (CLI) | payer MEDICARE, OTHER, SELFPAY ==
[2019-10-11 11:58] VITALS: BMI 42.7
[2019-10-28 12:29] VITALS: BMI 42.7
[2019-11-08 11:25] VITALS: BP 139/46; PULSE 55; RESP 16; TEMP 36.3; O2SAT 100; BMI 43.2
[2019-11-08 11:39] LABS: Hematocrit 34.7 % (37-47); Hemoglobin 10.8 g/dL (12.0-15.0)
[2019-11-08] MEDS: Epoetin Alfa epbx 10,000 UNITS/ML 10000 UNIT SC (12:18)
== END ==
PROVIDERS: Referring Provider Internal Medicine Nephrology; Visit Provider Internal Medicine Nephrology
DX: N18.4 Chronic kidney disease, stage 4 (severe) (principal); D63.1 Anemia in chronic kidney disease
CPT/HCPCS: 36415; 85014; 85018; 96372; Q5106

== ENCOUNTER → 2019-11-29 11:18 | Outpatient (CLI) | payer MEDICARE, OTHER, SELFPAY ==
[2019-10-28 12:29] VITALS: BMI 42.7
[2019-11-08 11:25] VITALS: BMI 43.2
[2019-11-29 11:43] LABS: Hematocrit 35.2 % (37-47); Hemoglobin 11.1 g/dL (12.0-15.0)
[2019-11-29 11:50] VITALS: BP 158/60; PULSE 49; RESP 16; TEMP 35.9; O2SAT 100; BMI 43.2
[2019-11-29] MEDS: Epoetin Alfa epbx 10,000 UNITS/ML 10000 UNIT SC (12:10)
== END ==
PROVIDERS: Referring Provider Internal Medicine Nephrology; Visit Provider Internal Medicine Nephrology
DX: N18.4 Chronic kidney disease, stage 4 (severe) (principal); D63.1 Anemia in chronic kidney disease
CPT/HCPCS: 36415; 85014; 85018; 96372; Q5106

== ENCOUNTER → 2019-12-13 11:18 | Outpatient (CLI) | payer MEDICARE, OTHER, SELFPAY ==
[2019-11-08 11:25] VITALS: BMI 43.2
[2019-11-29 11:50] VITALS: BMI 43.2
[2019-12-13 11:30] VITALS: BP 142/60; BMI 43.2
[2019-12-13 12:20] LABS: Hematocrit 31.9 % (37-47); Mean Corp Hgb Conc 31.3 g/dL (32-36); Mean Corpuscular Hgb 31.5 pg (27.0-32.0); Mean Corpuscular Volume 100.6 fL (81-99); Mean Platelet Vol. 10.8 fl (6.2-12.0); Platelet Count 236 K/mm3 (150-450); RBC Distribution Width CV 13.9 % (11.6-14.6); RBC Distribution Width SD 51.5 fl (35.1-43.9); Red Blood Count 3.17 M/mm3 (4.2-5.4); White Blood Count 8.3 K/mm3 (4.4-11.0)
[2019-12-13 12:27] LABS: Anion Gap 5 (5-15); BUN 52 mg/dL (7-18); BUN/Creat Ratio 25.9 RATIO (10-20); Calcium,Total 8.8 mg/dL (8.5-10.1); Chloride 114 mmol/L (98-107); Cholesterol 114 mg/dL (200); Creatinine, Serum 2.01 mg/dL (0.55-1.02); EST Glomerular Filtration Rate 25 mL/min (>60); Est Glom Filt Rate - Afr Amer 31 mL/min (>60); Glucose 82 mg/dL (74-106); High Density Lipoprotein 48 mg/dL; Phosphorus 2.4 mg/dL (2.5-4.9); Potassium 4.1 mmol/L (3.5-5.1); Sodium Level 144 mmol/L (136-145); Triglycerides 62 mg/dL; Very Low Density Lipoprotein 12 mg/dL (5-40)
[2019-12-13 12:29] LABS: Hemoglobin A1c 6.6 % (4.2-6.3)
[2019-12-13] MEDS: Epoetin Alfa epbx 10,000 UNITS/ML 1000 UNIT SC (12:37)
[2019-12-13 12:45] VITALS: BP 142/60
== END ==
PROVIDERS: Referring Provider Internal Medicine Nephrology; Visit Provider Internal Medicine Nephrology
DX: E11.22 Type 2 diabetes mellitus with diabetic chronic kidney disease (principal); N18.4 Chronic kidney disease, stage 4 (severe); I12.9 Hypertensive chronic kidney disease with stage 1 through stage 4 chronic kidney disease, or unspecified chronic kidney disease; D63.1 Anemia in chronic kidney disease; E11.65 Type 2 diabetes mellitus with hyperglycemia; E78.2 Mixed hyperlipidemia; Z79.899 Other long term (current) drug therapy
CPT/HCPCS: 36415; 80048; 80061; 83036; 84100; 85027; 96372; Q5106

== ENCOUNTER → 2020-01-03 11:21 | Outpatient (CLI) | payer MEDICARE, OTHER, SELFPAY ==
[2019-11-29 11:50] VITALS: BMI 43.2
[2019-12-13 11:30] VITALS: BMI 43.2
[2020-01-03 12:06] LABS: Hematocrit 33.2 % (37-47); Hemoglobin 10.3 g/dL (12.0-15.0)
[2020-01-03 12:18] VITALS: BP 141/44; PULSE 52; RESP 18; TEMP 35.4; O2SAT 95; BMI 43.2
[2020-01-03 12:22] LABS: Ferritin 100 ng/mL (8-252); Iron 64 ug/dL (50-170); Iron Binding Capacity,Total 241 ug/dL (250-450); PERCENT IRON SATURATION 26.6 % (15.0-55.0)
[2020-01-03] MEDS: Epoetin Alfa epbx 10,000 UNITS/ML 10000 UNIT SC (12:33)
== END ==
PROVIDERS: Referring Provider Internal Medicine Nephrology; Visit Provider Internal Medicine Nephrology
DX: N18.4 Chronic kidney disease, stage 4 (severe) (principal); D63.1 Anemia in chronic kidney disease
CPT/HCPCS: 82728; 83540; 83550; 85014; 85018; 96372; Q5106

== ENCOUNTER → 2020-01-17 11:23 | Outpatient (CLI) | payer MEDICARE, OTHER, SELFPAY ==
[2019-12-13 11:30] VITALS: BMI 43.2
[2020-01-03 12:18] VITALS: BMI 43.2
[2020-01-17 11:46] LABS: Hematocrit 34.2 % (37-47); Hemoglobin 10.4 g/dL (12.0-15.0); Mean Corp Hgb Conc 30.4 g/dL (32-36); Mean Corpuscular Volume 102.1 fL (81-99); Mean Platelet Vol. 10.6 fl (6.2-12.0); Platelet Count 227 K/mm3 (150-450); RBC Distribution Width CV 14.1 % (11.6-14.6); RBC Distribution Width SD 53.1 fl (35.1-43.9); Red Blood Count 3.35 M/mm3 (4.2-5.4)
[2020-01-17 12:00] LABS: Albumin, Serum 3.3 g/dL (3.2-5.0); BUN 65 mg/dL (7-18); BUN/Creat Ratio 28.9 RATIO (10-20); Chloride 111 mmol/L (98-107); Creatinine, Serum 2.25 mg/dL (0.55-1.02); EST Glomerular Filtration Rate 22 mL/min (>60); Est Glom Filt Rate - Afr Amer 27 mL/min (>60); Glucose 246 mg/dL (74-106); Phosphorus 2.6 mg/dL (2.5-4.9); Potassium 3.9 mmol/L (3.5-5.1); Sodium Level 143 mmol/L (136-145)
[2020-01-17 12:02] VITALS: BP 135/47; PULSE 46; RESP 16; TEMP 36.1; O2SAT 99; BMI 42.4
[2020-01-17] MEDS: Epoetin Alfa epbx 10,000 UNITS/ML 10000 UNIT SC (12:17)
[2020-01-17 19:44] LABS: Xtra Tube EP Lab EXTRA TUBE
== END ==
PROVIDERS: Referring Provider Internal Medicine Nephrology; Visit Provider Internal Medicine Nephrology
DX: N18.4 Chronic kidney disease, stage 4 (severe) (principal); D63.1 Anemia in chronic kidney disease
CPT/HCPCS: 36415; 80069; 85027; 96372; Q5106

== ENCOUNTER → 2020-01-31 11:18 | Outpatient (CLI) | payer MEDICARE, OTHER, SELFPAY ==
[2020-01-17 12:02] VITALS: BMI 42.4
[2020-01-31 11:37] LABS: Hematocrit 32.6 % (37-47); Hemoglobin 10.2 g/dL (12.0-15.0)
[2020-01-31 11:54] VITALS: BP 128/50; PULSE 55; RESP 16; TEMP 36.2; O2SAT 92; BMI 42.4
[2020-01-31] MEDS: Epoetin Alfa epbx 10,000 UNITS/ML 10000 UNIT SC (12:01)
== END ==
PROVIDERS: Referring Provider Internal Medicine Nephrology; Visit Provider Internal Medicine Nephrology
DX: N18.4 Chronic kidney disease, stage 4 (severe) (principal); D63.1 Anemia in chronic kidney disease
CPT/HCPCS: 36415; 85014; 85018; 96372; Q5106

== ENCOUNTER → 2020-02-14 14:45 | Outpatient (CLI) | payer MEDICARE, OTHER, SELFPAY ==
[2020-01-17 12:02] VITALS: BMI 42.4
[2020-01-31 11:54] VITALS: BMI 42.4
[2020-02-14 15:12] LABS: Hematocrit 35.7 % (37-47); Hemoglobin 10.9 g/dL (12.0-15.0); Mean Corp Hgb Conc 30.5 g/dL (32-36); Mean Corpuscular Hgb 31.2 pg (27.0-32.0); Mean Corpuscular Volume 102.3 fL (81-99); Mean Platelet Vol. 10.8 fl (6.2-12.0); Platelet Count 232 K/mm3 (150-450); RBC Distribution Width CV 13.5 % (11.6-14.6); RBC Distribution Width SD 51.1 fl (35.1-43.9); Red Blood Count 3.49 M/mm3 (4.2-5.4); White Blood Count 6.7 K/mm3 (4.4-11.0)
[2020-02-14 15:23] VITALS: BP 127/55; PULSE 53; RESP 18; TEMP 35.9; O2SAT 97; BMI 42.4
[2020-02-14 15:25] LABS: Albumin, Serum 3.4 g/dL (3.2-5.0); BUN 57 mg/dL (7-18); BUN/Creat Ratio 28.8 RATIO (10-20); Chloride 114 mmol/L (98-107); Creatinine, Serum 1.98 mg/dL (0.55-1.02); EST Glomerular Filtration Rate 26 mL/min (>60); Est Glom Filt Rate - Afr Amer 31 mL/min (>60); Glucose 73 mg/dL (74-106); Phosphorus 2.5 mg/dL (2.5-4.9); Potassium 3.7 mmol/L (3.5-5.1); Sodium Level 144 mmol/L (136-145)
== END ==
PROVIDERS: Referring Provider Internal Medicine Nephrology; Visit Provider Internal Medicine Nephrology
DX: N18.4 Chronic kidney disease, stage 4 (severe) (principal); D63.1 Anemia in chronic kidney disease
CPT/HCPCS: 80069; 85027; Q5106

== ENCOUNTER → 2020-02-28 11:19 | Outpatient (CLI) | payer MEDICARE, OTHER, SELFPAY ==
[2020-01-31 11:54] VITALS: BMI 42.4
[2020-02-14 15:23] VITALS: BMI 42.4
[2020-02-28 11:49] LABS: Hematocrit 35.4 % (37-47); Hemoglobin 10.9 g/dL (12.0-15.0)
[2020-02-28 19:40] LABS: Xtra Tube EP Lab EXTRA TUBE
== END ==
PROVIDERS: Referring Provider Internal Medicine Nephrology; Visit Provider Internal Medicine Nephrology
DX: N18.4 Chronic kidney disease, stage 4 (severe) (principal); D63.1 Anemia in chronic kidney disease
CPT/HCPCS: 36415; 85014; 85018

== ENCOUNTER → 2020-03-13 14:19 | Outpatient (CLI) | payer MEDICARE, OTHER, SELFPAY ==
[2020-02-14 15:23] VITALS: BMI 42.4
[2020-03-13 14:30] VITALS: BP 130/52; PULSE 57; RESP 16; TEMP 36.9; O2SAT 98; BMI 42.4
[2020-03-13 14:41] LABS: Hematocrit 33.6 % (37-47); Mean Corp Hgb Conc 29.8 g/dL (32-36); Mean Corpuscular Hgb 31.3 pg (27.0-32.0); Mean Platelet Vol. 10.9 fl (6.2-12.0); Platelet Count 213 K/mm3 (150-450); RBC Distribution Width CV 13.2 % (11.6-14.6); RBC Distribution Width SD 51.6 fl (35.1-43.9); White Blood Count 7.2 K/mm3 (4.4-11.0)
[2020-03-13 14:59] LABS: Albumin, Serum 3.2 g/dL (3.2-5.0); BUN 64 mg/dL (7-18); BUN/Creat Ratio 30.3 RATIO (10-20); Chloride 112 mmol/L (98-107); Creatinine, Serum 2.11 mg/dL (0.55-1.02); EST Glomerular Filtration Rate 24 mL/min (>60); Est Glom Filt Rate - Afr Amer 29 mL/min (>60); Glucose 93 mg/dL (74-106); Phosphorus 2.5 mg/dL (2.5-4.9); Potassium 4.1 mmol/L (3.5-5.1); Sodium Level 143 mmol/L (136-145)
[2020-03-13] MEDS: Epoetin Alfa epbx 10,000 UNITS/ML 10000 UNIT SC (15:11)
== END ==
PROVIDERS: Referring Provider Internal Medicine Nephrology; Visit Provider Internal Medicine Nephrology
DX: N18.4 Chronic kidney disease, stage 4 (severe) (principal); D63.1 Anemia in chronic kidney disease
CPT/HCPCS: 36415; 80069; 85027; 96372; Q5106

== ENCOUNTER → 2020-03-31 11:17 | Outpatient (CLI) | payer MEDICARE, OTHER, SELFPAY ==
[2020-02-14 15:23] VITALS: BMI 42.4
[2020-03-13 14:30] VITALS: BMI 42.4
[2020-03-31 11:42] LABS: Hematocrit 34.5 % (37-47); Hemoglobin 10.8 g/dL (12.0-15.0)
[2020-03-31 12:05] LABS: Anion Gap 8 (5-15); BUN 67 mg/dL (7-18); BUN/Creat Ratio 32.8 RATIO (10-20); Chloride 108 mmol/L (98-107); Creatinine, Serum 2.04 mg/dL (0.55-1.02); EST Glomerular Filtration Rate 25 mL/min (>60); Est Glom Filt Rate - Afr Amer 30 mL/min (>60); Glucose 143 mg/dL (74-106); Phosphorus 2.6 mg/dL (2.5-4.9); Potassium 4.2 mmol/L (3.5-5.1); Sodium Level 141 mmol/L (136-145)
[2020-03-31 12:08] VITALS: BP 139/86; PULSE 56; RESP 16; TEMP 36.6; O2SAT 97; BMI 43.0
[2020-03-31 12:09] LABS: Ferritin 100 ng/mL (8-252); Iron 81 ug/dL (50-170); Iron Binding Capacity,Total 296 ug/dL (250-450)
[2020-03-31 12:21] LABS: Vitamin D,25 Hydroxy 31.6 ng/mL
[2020-03-31 12:38] LABS: Bacteria 0 SEEN /hpf (None Seen); Mucous, Urine 0 SEEN /hpf (<or=2+); Red Blood Cells-Urine 0 SEEN /hpf (0-5)
[2020-03-31] MEDS: Epoetin Alfa epbx 10,000 UNITS/ML 10000 UNIT SC (12:39)
[2020-03-31 12:46] LABS: Color, Urine Yellow (Yellow); Glucose, Dipstick Normal (Normal); Ketone-Dipstick Negative (Negative); Leukocyte Esterase-Dipstick Negative /ul (Negative); Nitrite-Dipstick Negative (Negative); Occult Blood-Urine Negative /ul (Negative); Protein-Dipstick Negative (Negative); Urine Bilirubin Dipstick Negative (Negative); Urine Clarity Clear (Clear); Urine Urobilinogen Normal (Normal)
[2020-03-31 13:00] LABS: Protein:Creat Ratio 659 mg/g CRE (0-200)
[2020-03-31 13:10] LABS: Squamous Epithelial Cells - UA 0-5 SEEN /hpf (5-10); White Blood Cells 0-5 SEEN /hpf (0-5)
== END ==
PROVIDERS: Internal Medicine; Referring Provider Internal Medicine Nephrology; Visit Provider Internal Medicine Nephrology
DX: N18.4 Chronic kidney disease, stage 4 (severe) (principal); D63.1 Anemia in chronic kidney disease; N25.81 Secondary hyperparathyroidism of renal origin; E55.9 Vitamin D deficiency, unspecified
CPT/HCPCS: 36415; 80048; 81001; 82306; 82570; 82728; 83540; 83550; 84100; 84156; 85014; 85018; 96372; Q5106

== ENCOUNTER → 2020-04-14 11:21 | Outpatient (CLI) | payer MEDICARE, OTHER, SELFPAY ==
[2020-03-13 14:30] VITALS: BMI 42.4
[2020-03-31 12:08] VITALS: BMI 43.0
[2020-04-14 11:42] LABS: Hemoglobin 11.2 g/dL (12.0-15.0)
[2020-04-14 11:56] LABS: Albumin, Serum 3.3 g/dL (3.2-5.0); BUN 66 mg/dL (7-18); Calcium,Total 8.7 mg/dL (8.5-10.1); Chloride 111 mmol/L (98-107); Creatinine, Serum 2.06 mg/dL (0.55-1.02); EST Glomerular Filtration Rate 25 mL/min (>60); Est Glom Filt Rate - Afr Amer 30 mL/min (>60); Glucose 98 mg/dL (74-106); Phosphorus 2.8 mg/dL (2.5-4.9); Potassium 4.3 mmol/L (3.5-5.1); Sodium Level 140 mmol/L (136-145)
== END ==
PROVIDERS: Referring Provider Internal Medicine Nephrology; Visit Provider Internal Medicine Nephrology
DX: N18.4 Chronic kidney disease, stage 4 (severe) (principal); D63.1 Anemia in chronic kidney disease
CPT/HCPCS: 36415; 80069; 85014; 85018

== ENCOUNTER → 2020-04-28 11:21 | Outpatient (CLI) | payer MEDICARE, OTHER, SELFPAY ==
[2020-03-31 12:08] VITALS: BMI 43.0
[2020-04-28 11:42] LABS: Hematocrit 35.2 % (37-47); Hemoglobin 10.7 g/dL (12.0-15.0)
[2020-04-28 11:56] LABS: Albumin, Serum 3.2 g/dL (3.2-5.0); BUN 80 mg/dL (7-18); BUN/Creat Ratio 36.2 RATIO (10-20); Calcium,Total 8.7 mg/dL (8.5-10.1); Chloride 109 mmol/L (98-107); Creatinine, Serum 2.21 mg/dL (0.55-1.02); EST Glomerular Filtration Rate 23 mL/min (>60); Est Glom Filt Rate - Afr Amer 28 mL/min (>60); Glucose 203 mg/dL (74-106); Phosphorus 3.2 mg/dL (2.5-4.9); Potassium 4.2 mmol/L (3.5-5.1); Sodium Level 141 mmol/L (136-145)
== END ==
PROVIDERS: Referring Provider Internal Medicine Nephrology; Visit Provider Internal Medicine Nephrology
DX: N18.4 Chronic kidney disease, stage 4 (severe) (principal); D63.1 Anemia in chronic kidney disease
CPT/HCPCS: 36415; 80069; 85014; 85018

== ENCOUNTER → 2020-05-13 11:21 | Outpatient (CLI) | payer MEDICARE, OTHER, SELFPAY ==
[2020-03-31 12:08] VITALS: BMI 43.0
[2020-05-13 11:44] LABS: Hematocrit 32.7 % (37-47); Hemoglobin 10.4 g/dL (12.0-15.0)
[2020-05-13 12:03] LABS: Ferritin 151 ng/mL (8-252); Iron 79 ug/dL (50-170); Iron Binding Capacity,Total 248 ug/dL (250-450)
[2020-05-13] MEDS: Epoetin Alfa epbx 10,000 UNITS/ML 10000 UNIT SC (12:14)
[2020-05-13 12:33] VITALS: BP 141/88; PULSE 62; RESP 18; TEMP 35.8; O2SAT 100; BMI 42.4
[2020-05-13 19:39] LABS: Xtra Tube EP Lab EXTRA TUBE
[2020-06-24 12:01] LABS: Hematocrit 34.5 % (37-47); Hemoglobin 10.4 g/dL (12.0-15.0)
[2020-06-24 12:18] LABS: Albumin, Serum 3.2 g/dL (3.2-5.0); BUN 70 mg/dL (7-18); BUN/Creat Ratio 36.1 RATIO (10-20); Chloride 116 mmol/L (98-107); Cholesterol 119 mg/dL (200); Creatinine, Serum 1.94 mg/dL (0.55-1.02); EST Glomerular Filtration Rate 26 mL/min (>60); Est Glom Filt Rate - Afr Amer 32 mL/min (>60); Estimated Creatinine Clearance 21.65 ml/min; Glucose 76 mg/dL (74-106); High Density Lipoprotein 55 mg/dL; Phosphorus 3.3 mg/dL (2.5-4.9); Sodium Level 146 mmol/L (136-145); Triglycerides 76 mg/dL; Very Low Density Lipoprotein 15 mg/dL (5-40)
[2020-06-24 12:28] LABS: Hemoglobin A1c 6.1 % (3.8-5.6)
== END ==
PROVIDERS: Referring Provider Internal Medicine Nephrology; Visit Provider Internal Medicine Nephrology
DX: N18.4 Chronic kidney disease, stage 4 (severe) (principal); D63.1 Anemia in chronic kidney disease
CPT/HCPCS: 36415; 80061; 80069; 82728; 83036; 83540; 83550; 85014; 85018; 96372; Q5106

== ENCOUNTER → 2020-05-27 11:23 | Outpatient (CLI) | payer MEDICARE, OTHER, SELFPAY ==
[2020-03-31 12:08] VITALS: BMI 43.0
[2020-05-13 12:33] VITALS: BMI 42.4
[2020-05-27 11:40] LABS: Hemoglobin 10.9 g/dL (12.0-15.0); Mean Corp Hgb Conc 31.1 g/dL (32-36); Mean Corpuscular Hgb 32.4 pg (27.0-32.0); Mean Corpuscular Volume 104.2 fL (81-99); Mean Platelet Vol. 9.7 fl (6.2-12.0); Platelet Count 243 K/mm3 (150-450); RBC Distribution Width CV 13.9 % (11.6-14.6); RBC Distribution Width SD 53.2 fl (35.1-43.9); Red Blood Count 3.36 M/mm3 (4.2-5.4); White Blood Count 7.5 K/mm3 (4.4-11.0)
[2020-05-27 11:55] LABS: Albumin, Serum 3.4 g/dL (3.2-5.0); BUN 62 mg/dL (7-18); BUN/Creat Ratio 31.5 RATIO (10-20); Calcium,Total 9.1 mg/dL (8.5-10.1); Chloride 112 mmol/L (98-107); Creatinine, Serum 1.97 mg/dL (0.55-1.02); EST Glomerular Filtration Rate 26 mL/min (>60); Est Glom Filt Rate - Afr Amer 31 mL/min (>60); Glucose 118 mg/dL (74-106); Phosphorus 2.6 mg/dL (2.5-4.9); Potassium 3.9 mmol/L (3.5-5.1); Sodium Level 143 mmol/L (136-145)
[2020-05-27] MEDS: Epoetin Alfa epbx 10,000 UNITS/ML 10000 UNIT SC (11:58)
[2020-05-27 12:01] VITALS: BP 161/67; PULSE 71; RESP 16; TEMP 36.3; O2SAT 91; BMI 42.4
[2020-05-27 12:03] VITALS: BP 161/67; PULSE 71; RESP 16; TEMP 36.3; O2SAT 91
== END ==
PROVIDERS: Referring Provider Internal Medicine Nephrology; Visit Provider Internal Medicine Nephrology
DX: N18.4 Chronic kidney disease, stage 4 (severe) (principal); D63.1 Anemia in chronic kidney disease
CPT/HCPCS: 36415; 80069; 85027; 96372; Q5106

== ENCOUNTER → 2020-06-10 11:21 | Outpatient (CLI) | payer MEDICARE, OTHER, SELFPAY ==
[2020-05-13 12:33] VITALS: BMI 42.4
[2020-05-27 12:01] VITALS: BMI 42.4
[2020-06-10 12:01] LABS: Absolute Lymphocyte Count 1.21 X10^3/uL (0.83-4.51); Absolute Neutrophil Count 5.1 X10^3/uL (2.0-7.7); Basophil# 0.04 X10^3/uL; Basophil% 0.6 % (0-1); Eosinophil# 0.23 X10^3/uL; Eosinophils% 3.2 % (0-5); Hematocrit 33.3 % (37-47); Hemoglobin 10.3 g/dL (12.0-15.0); Lymphocyte # 1.21 X10^3/ul (4.0); Lymphocyte % 16.8 % (19-41); Mean Corp Hgb Conc 30.9 g/dL (32-36); Mean Corpuscular Hgb 32.2 pg (27.0-32.0); Mean Corpuscular Volume 104.1 fL (81-99); Mean Platelet Vol. 10.2 fl (6.2-12.0); Monocyte% 8.3 % (0-10); NRBC Flagged by Analyzer 0 % (0-5); Neutrophil # 5.08 X10^3/uL (2.7-7.7); Neutrophil % 70.5 % (47-70); Platelet Count 243 K/mm3 (150-450); RBC Distribution Width CV 13.9 % (11.6-14.6); RBC Distribution Width SD 53.4 fl (35.1-43.9); White Blood Count 7.2 K/mm3 (4.4-11.0)
[2020-06-10 12:10] VITALS: BP 134/65; PULSE 63; RESP 16; TEMP 36.2; O2SAT 96; BMI 42.4
[2020-06-10] MEDS: Epoetin Alfa epbx 10,000 UNITS/ML 10000 UNIT SC (12:17)
[2020-06-10 12:21] LABS: Albumin, Serum 3.2 g/dL (3.2-5.0); BUN 56 mg/dL (7-18); BUN/Creat Ratio 27.6 RATIO (10-20); Calcium,Total 8.8 mg/dL (8.5-10.1); Chloride 113 mmol/L (98-107); Creatinine, Serum 2.03 mg/dL (0.55-1.02); EST Glomerular Filtration Rate 25 mL/min (>60); Est Glom Filt Rate - Afr Amer 30 mL/min (>60); Glucose 155 mg/dL (74-106); Phosphorus 2.6 mg/dL (2.5-4.9); Potassium 4.2 mmol/L (3.5-5.1); Sodium Level 145 mmol/L (136-145)
== END ==
PROVIDERS: Referring Provider Internal Medicine Nephrology; Visit Provider Internal Medicine Nephrology
DX: N18.4 Chronic kidney disease, stage 4 (severe) (principal); D63.1 Anemia in chronic kidney disease
CPT/HCPCS: 80069; 85025; 96372; Q5106

== ENCOUNTER → 2020-06-24 11:20 | Outpatient (CLI) | payer MEDICARE, OTHER, SELFPAY ==
[2020-05-27 12:01] VITALS: BMI 42.4
[2020-06-10 12:10] VITALS: BMI 42.4
[2020-06-24 12:09] VITALS: BP 136/58; PULSE 56; RESP 16; TEMP 36.4; O2SAT 97; BMI 42.4
[2020-06-24] MEDS: Epoetin Alfa epbx 10,000 UNITS/ML 10000 UNIT SC (12:30)
== END ==
PROVIDERS: Referring Provider Internal Medicine Nephrology; Visit Provider Internal Medicine Nephrology
DX: N18.4 Chronic kidney disease, stage 4 (severe) (principal); D63.1 Anemia in chronic kidney disease
CPT/HCPCS: 96372; Q5106

== ENCOUNTER → 2020-07-08 11:23 | Outpatient (CLI) | payer MEDICARE, OTHER, SELFPAY ==
[2020-06-10 12:10] VITALS: BMI 42.4
[2020-06-24 12:09] VITALS: BMI 42.4
[2020-07-08 11:49] LABS: Hematocrit 35.2 % (37-47); Hemoglobin 10.9 g/dL (12.0-15.0); Mean Corpuscular Hgb 32.5 pg (27.0-32.0); Mean Corpuscular Volume 105.1 fL (81-99); Mean Platelet Vol. 10.6 fl (6.2-12.0); Platelet Count 248 K/mm3 (150-450); RBC Distribution Width CV 13.2 % (11.6-14.6); RBC Distribution Width SD 50.9 fl (35.1-43.9); Red Blood Count 3.35 M/mm3 (4.2-5.4); White Blood Count 7.7 K/mm3 (4.4-11.0)
[2020-07-08 12:02] LABS: Albumin, Serum 3.4 g/dL (3.2-5.0); BUN 59 mg/dL (7-18); BUN/Creat Ratio 29.5 RATIO (10-20); Chloride 115 mmol/L (98-107); EST Glomerular Filtration Rate 25 mL/min (>60); Est Glom Filt Rate - Afr Amer 31 mL/min (>60); Glucose 101 mg/dL (74-106); Phosphorus 3.3 mg/dL (2.5-4.9); Potassium 4.1 mmol/L (3.5-5.1); Sodium Level 145 mmol/L (136-145)
[2020-07-08 12:04] VITALS: BP 139/65; PULSE 68; RESP 16; TEMP 36.1; O2SAT 94; BMI 42.4
[2020-07-08] MEDS: Epoetin Alfa epbx 10,000 UNITS/ML 10000 UNIT SC (12:08)
[2020-07-08 19:46] LABS: Xtra Tube EP Lab EXTRA TUBE
== END ==
PROVIDERS: Referring Provider Internal Medicine Nephrology; Visit Provider Internal Medicine Nephrology
DX: N18.4 Chronic kidney disease, stage 4 (severe) (principal); D63.1 Anemia in chronic kidney disease
CPT/HCPCS: 36415; 80069; 85027; 96372; Q5106

== ENCOUNTER → 2020-07-22 11:22 | Outpatient (CLI) | payer MEDICARE, OTHER, SELFPAY ==
[2020-06-24 12:09] VITALS: BMI 42.4
[2020-07-08 12:04] VITALS: BMI 42.4
[2020-07-22 11:47] LABS: Hematocrit 35.7 % (37-47); Hemoglobin 10.9 g/dL (12.0-15.0); Mean Corp Hgb Conc 30.5 g/dL (32-36); Mean Corpuscular Hgb 32.3 pg (27.0-32.0); Mean Corpuscular Volume 105.9 fL (81-99); Mean Platelet Vol. 10.2 fl (6.2-12.0); Platelet Count 255 K/mm3 (150-450); RBC Distribution Width SD 50.4 fl (35.1-43.9); Red Blood Count 3.37 M/mm3 (4.2-5.4); White Blood Count 7.5 K/mm3 (4.4-11.0)
[2020-07-22 12:03] LABS: Albumin, Serum 3.4 g/dL (3.2-5.0); BUN 55 mg/dL (7-18); BUN/Creat Ratio 27.9 RATIO (10-20); Chloride 114 mmol/L (98-107); Creatinine, Serum 1.97 mg/dL (0.55-1.02); EST Glomerular Filtration Rate 26 mL/min (>60); Est Glom Filt Rate - Afr Amer 31 mL/min (>60); Glucose 139 mg/dL (74-106); Phosphorus 2.9 mg/dL (2.5-4.9); Potassium 3.9 mmol/L (3.5-5.1); Sodium Level 146 mmol/L (136-145)
[2020-07-22 19:43] LABS: Xtra Tube EP Lab EXTRA TUBE
== END ==
PROVIDERS: Referring Provider Internal Medicine Nephrology; Visit Provider Internal Medicine Nephrology
DX: N18.4 Chronic kidney disease, stage 4 (severe) (principal); D63.1 Anemia in chronic kidney disease
CPT/HCPCS: 36415; 80069; 85027

== ENCOUNTER → 2020-08-12 11:16 | Outpatient (CLI) | payer MEDICARE, OTHER, SELFPAY ==
[2020-07-08 12:04] VITALS: BMI 42.4
[2020-08-12 12:11] LABS: Hematocrit 33.7 % (37-47); Hemoglobin 10.3 g/dL (12.0-15.0); Mean Corp Hgb Conc 30.6 g/dL (32-36); Mean Corpuscular Hgb 32.2 pg (27.0-32.0); Mean Corpuscular Volume 105.3 fL (81-99); Mean Platelet Vol. 10.8 fl (6.2-12.0); Platelet Count 243 K/mm3 (150-450); RBC Distribution Width CV 12.4 % (11.6-14.6); RBC Distribution Width SD 48.3 fl (35.1-43.9); White Blood Count 8.4 K/mm3 (4.4-11.0)
[2020-08-12 12:17] LABS: Albumin, Serum 3.2 g/dL (3.2-5.0); BUN 56 mg/dL (7-18); BUN/Creat Ratio 30.4 RATIO (10-20); Calcium,Total 8.8 mg/dL (8.5-10.1); Chloride 116 mmol/L (98-107); Creatinine, Serum 1.84 mg/dL (0.55-1.02); EST Glomerular Filtration Rate 28 mL/min (>60); Est Glom Filt Rate - Afr Amer 34 mL/min (>60); Glucose 144 mg/dL (74-106); Phosphorus 2.8 mg/dL (2.5-4.9); Potassium 3.8 mmol/L (3.5-5.1); Sodium Level 147 mmol/L (136-145)
== END ==
PROVIDERS: Referring Provider Internal Medicine Nephrology; Visit Provider Internal Medicine Nephrology
DX: N18.4 Chronic kidney disease, stage 4 (severe) (principal); D63.1 Anemia in chronic kidney disease
CPT/HCPCS: 36415; 80069; 85027

== ENCOUNTER → 2020-08-26 11:22 | Outpatient (CLI) | payer MEDICARE, OTHER, SELFPAY ==
[2020-07-08 12:04] VITALS: BMI 42.4
[2020-08-26 12:08] LABS: Absolute Lymphocyte Count 1.33 X10^3/uL (0.83-4.51); Absolute Neutrophil Count 4.6 X10^3/uL (2.0-7.7); Basophil# 0.03 X10^3/uL; Basophil% 0.4 % (0-1); Eosinophils% 4.4 % (0-5); Hematocrit 34.9 % (37-47); Hemoglobin 10.9 g/dL (12.0-15.0); Lymphocyte # 1.33 X10^3/ul (4.0); Lymphocyte % 19.4 % (19-41); Mean Corp Hgb Conc 31.2 g/dL (32-36); Mean Corpuscular Hgb 32.7 pg (27.0-32.0); Mean Corpuscular Volume 104.8 fL (81-99); Mean Platelet Vol. 10.5 fl (6.2-12.0); Monocyte# 0.59 X10^3/uL; Monocyte% 8.6 % (0-10); NRBC Flagged by Analyzer 0 % (0-5); Neutrophil # 4.56 X10^3/uL (2.7-7.7); Neutrophil % 66.8 % (47-70); Platelet Count 258 K/mm3 (150-450); RBC Distribution Width CV 12.5 % (11.6-14.6); RBC Distribution Width SD 48.8 fl (35.1-43.9); Red Blood Count 3.33 M/mm3 (4.2-5.4); White Blood Count 6.8 K/mm3 (4.4-11.0)
[2020-08-26 12:20] LABS: Albumin, Serum 3.5 g/dL (3.2-5.0); BUN 51 mg/dL (7-18); BUN/Creat Ratio 27.7 RATIO (10-20); Calcium,Total 9.2 mg/dL (8.5-10.1); Chloride 112 mmol/L (98-107); Creatinine, Serum 1.84 mg/dL (0.55-1.02); EST Glomerular Filtration Rate 28 mL/min (>60); Est Glom Filt Rate - Afr Amer 34 mL/min (>60); Ferritin 89 ng/mL (8-252); Glucose 98 mg/dL (74-106); Iron 57 ug/dL (50-170); Iron Binding Capacity,Total 256 ug/dL (250-450); Phosphorus 2.7 mg/dL (2.5-4.9); Potassium 3.7 mmol/L (3.5-5.1); Sodium Level 143 mmol/L (136-145)
[2020-08-26 19:54] LABS: Xtra Tube EP Lab EXTRA TUBE
== END ==
PROVIDERS: Referring Provider Internal Medicine Nephrology; Visit Provider Internal Medicine Nephrology
DX: N18.4 Chronic kidney disease, stage 4 (severe) (principal); D63.1 Anemia in chronic kidney disease
CPT/HCPCS: 36415; 80069; 82728; 83540; 83550; 85025

== ENCOUNTER → 2020-09-09 11:20 | Outpatient (CLI) | payer MEDICARE, OTHER, SELFPAY ==
[2020-07-08 12:04] VITALS: BMI 42.4
[2020-09-09 11:54] LABS: Hematocrit 34.2 % (37-47); Hemoglobin 10.6 g/dL (12.0-15.0)
[2020-09-09 19:48] LABS: Xtra Tube EP Lab EXTRA TUBE
== END ==
PROVIDERS: Referring Provider Internal Medicine Nephrology; Visit Provider Internal Medicine Nephrology
DX: N18.4 Chronic kidney disease, stage 4 (severe) (principal); D63.1 Anemia in chronic kidney disease
CPT/HCPCS: 36415; 85014; 85018; Q5106

== ENCOUNTER → 2020-09-23 11:27 | Outpatient (CLI) | payer MEDICARE, OTHER, SELFPAY ==
[2020-07-08 12:04] VITALS: BMI 42.4
[2020-09-23 12:38] LABS: Albumin, Serum 3.3 g/dL (3.2-5.0); BUN 62 mg/dL (7-18); BUN/Creat Ratio 33.9 RATIO (10-20); Calcium,Total 8.8 mg/dL (8.5-10.1); Chloride 113 mmol/L (98-107); Creatinine, Serum 1.83 mg/dL (0.55-1.02); EST Glomerular Filtration Rate 28 mL/min (>60); Est Glom Filt Rate - Afr Amer 34 mL/min (>60); Glucose 73 mg/dL (74-106); Phosphorus 2.9 mg/dL (2.5-4.9); Potassium 3.9 mmol/L (3.5-5.1); Sodium Level 143 mmol/L (136-145)
[2020-09-23 12:39] LABS: Mucous, Urine 0 SEEN /hpf (<or=2+); Red Blood Cells-Urine 0 SEEN /hpf (0-5)
[2020-09-23 12:40] LABS: Vitamin D,25 Hydroxy 20.3 ng/mL
[2020-09-23 12:47] LABS: Hematocrit 32.8 % (37-47); Hemoglobin 9.9 g/dL (12.0-15.0)
[2020-09-23 12:54] LABS: Protein, Urine (Random) 11.3 mg/dL (<11.9); Protein:Creat Ratio 350 mg/g CRE (0-200)
[2020-09-23 13:04] LABS: Color, Urine Yellow (Yellow); Glucose, Dipstick Normal (Normal); Ketone-Dipstick Negative (Negative); Nitrite-Dipstick Positive (Negative); Occult Blood-Urine Negative /ul (Negative); Protein-Dipstick Negative (Negative); Urine Bilirubin Dipstick Negative (Negative); Urine Clarity Sl. Cloudy (Clear); Urine Urobilinogen Normal (Normal)
[2020-09-23] MEDS: Epoetin Alfa epbx 10,000 UNITS/ML 10000 UNIT SC (13:15)
[2020-09-23 13:21] VITALS: BP 142/78; PULSE 67; RESP 16; TEMP 36.6; O2SAT 100; BMI 42.4
[2020-09-23 13:55] LABS: Leukocyte Esterase-Dipstick 25 /ul (Negative)
[2020-09-23 14:30] LABS: Bacteria 2+ /hpf (None Seen); Squamous Epithelial Cells - UA 10-25 SEEN /hpf (5-10); White Blood Cells 0-5 SEEN /hpf (0-5)
[2020-09-24 14:04] LABS: PTHIN 312.8 pg/mL (18.4-80.1)
== END ==
PROVIDERS: Referring Provider Internal Medicine Nephrology; Visit Provider Internal Medicine Nephrology
DX: N18.4 Chronic kidney disease, stage 4 (severe) (principal); D63.1 Anemia in chronic kidney disease
CPT/HCPCS: 36415; 80069; 81001; 82306; 82570; 83970; 84156; 85014; 85018; 96372; Q5106

== ENCOUNTER → 2020-10-07 11:18 | Outpatient (CLI) | payer MEDICARE, OTHER, SELFPAY ==
[2020-07-08 12:04] VITALS: BMI 42.4
[2020-09-23 13:21] VITALS: BMI 42.4
[2020-10-07 11:55] LABS: Hematocrit 33.9 % (37-47); Hemoglobin 10.7 g/dL (12.0-15.0); Mean Corp Hgb Conc 31.6 g/dL (32-36); Mean Corpuscular Volume 101.5 fL (81-99); Platelet Count 246 K/mm3 (150-450); RBC Distribution Width CV 13.3 % (11.6-14.6); RBC Distribution Width SD 49.5 fl (35.1-43.9); Red Blood Count 3.34 M/mm3 (4.2-5.4); White Blood Count 7.8 K/mm3 (4.4-11.0)
[2020-10-07 12:07] LABS: Albumin, Serum 3.5 g/dL (3.2-5.0); BUN 58 mg/dL (7-18); BUN/Creat Ratio 30.9 RATIO (10-20); Calcium,Total 8.9 mg/dL (8.5-10.1); Chloride 112 mmol/L (98-107); Creatinine, Serum 1.88 mg/dL (0.55-1.02); EST Glomerular Filtration Rate 27 mL/min (>60); Est Glom Filt Rate - Afr Amer 33 mL/min (>60); Glucose 90 mg/dL (74-106); Phosphorus 2.8 mg/dL (2.5-4.9); Potassium 3.8 mmol/L (3.5-5.1); Sodium Level 143 mmol/L (136-145)
[2020-10-07 12:09] VITALS: BP 147/67; PULSE 62; RESP 16; TEMP 36.6; O2SAT 98; BMI 42.4
[2020-10-07] MEDS: Epoetin Alfa epbx 10,000 UNITS/ML 10000 UNIT SC (12:26)
[2020-10-07 19:52] LABS: Xtra Tube EP Lab EXTRA TUBE
== END ==
PROVIDERS: Referring Provider Internal Medicine Nephrology; Visit Provider Internal Medicine Nephrology
DX: N18.4 Chronic kidney disease, stage 4 (severe) (principal); D63.1 Anemia in chronic kidney disease
CPT/HCPCS: 36415; 80069; 85027; 96372; Q5106

== ENCOUNTER → 2020-10-21 11:21 | Outpatient (CLI) | payer MEDICARE, OTHER, SELFPAY ==
[2020-09-23 13:21] VITALS: BMI 42.4
[2020-10-07 12:09] VITALS: BMI 42.4
[2020-10-21 12:01] LABS: Absolute Lymphocyte Count 1.48 X10^3/uL (0.83-4.51); Absolute Neutrophil Count 5.1 X10^3/uL (2.0-7.7); Basophil# 0.04 X10^3/uL; Basophil% 0.5 % (0-1); Eosinophil# 0.36 X10^3/uL; Eosinophils% 4.7 % (0-5); Hematocrit 35.1 % (37-47); Hemoglobin 10.5 g/dL (12.0-15.0); Lymphocyte # 1.48 X10^3/ul (4.0); Lymphocyte % 19.4 % (19-41); Mean Corp Hgb Conc 29.9 g/dL (32-36); Mean Corpuscular Hgb 31.2 pg (27.0-32.0); Mean Corpuscular Volume 104.2 fL (81-99); Mean Platelet Vol. 10.2 fl (6.2-12.0); Monocyte# 0.64 X10^3/uL; Monocyte% 8.4 % (0-10); NRBC Flagged by Analyzer 0 % (0-5); Neutrophil # 5.07 X10^3/uL (2.7-7.7); Neutrophil % 66.7 % (47-70); Platelet Count 294 K/mm3 (150-450); RBC Distribution Width CV 13.7 % (11.6-14.6); RBC Distribution Width SD 52.6 fl (35.1-43.9); Red Blood Count 3.37 M/mm3 (4.2-5.4); White Blood Count 7.6 K/mm3 (4.4-11.0)
[2020-10-21 12:14] LABS: Albumin, Serum 3.4 g/dL (3.2-5.0); BUN 59 mg/dL (7-18); BUN/Creat Ratio 29.6 RATIO (10-20); Calcium,Total 9.3 mg/dL (8.5-10.1); Chloride 115 mmol/L (98-107); Creatinine, Serum 1.99 mg/dL (0.55-1.02); EST Glomerular Filtration Rate 26 mL/min (>60); Est Glom Filt Rate - Afr Amer 31 mL/min (>60); Glucose 88 mg/dL (74-106); Phosphorus 2.7 mg/dL (2.5-4.9); Potassium 3.8 mmol/L (3.5-5.1); Sodium Level 145 mmol/L (136-145)
[2020-10-21 12:17] VITALS: BP 139/49; PULSE 64; RESP 16; TEMP 35.9; O2SAT 97; BMI 42.4
[2020-10-21] MEDS: Epoetin Alfa epbx 10,000 UNITS/ML 10000 UNIT SC (12:25)
[2020-10-21 12:35] VITALS: BP 139/49
[2020-10-21 19:55] LABS: Xtra Tube EP Lab EXTRA TUBE
[2020-11-11 11:49] LABS: Hematocrit 34.1 % (37-47); Hemoglobin 10.5 g/dL (12.0-15.0)
[2020-11-11 19:46] LABS: Xtra Tube EP Lab EXTRA TUBE
== END ==
PROVIDERS: Referring Provider Internal Medicine Nephrology; Visit Provider Internal Medicine Nephrology
DX: N18.4 Chronic kidney disease, stage 4 (severe) (principal); D63.1 Anemia in chronic kidney disease
CPT/HCPCS: 36415; 80069; 85014; 85018; 85025; 96372; Q5106

== ENCOUNTER 2020-11-11 11:22 | Outpatient (CLI) | payer MEDICARE, OTHER, SELFPAY ==
[2020-10-21 12:17] VITALS: BMI 42.4
[2020-11-11 12:04] VITALS: BP 134/62; PULSE 64; RESP 16; TEMP 35.9; O2SAT 97; BMI 42.4
[2020-11-11] MEDS: Epoetin Alfa epbx 10,000 UNITS/ML 10000 UNIT SC (12:14)
== END 2020-11-11 16:53 | disposition home or self-care (01) ==
LOC: MEDOUTP 11:22
PROVIDERS: Referring Provider Internal Medicine Nephrology; Visit Provider Internal Medicine Nephrology
DX: N18.4 Chronic kidney disease, stage 4 (severe) (principal); D63.1 Anemia in chronic kidney disease
CPT/HCPCS: 96372; Q5106

== ENCOUNTER → 2020-12-02 10:54 | Outpatient (CLI) | payer MEDICARE, OTHER, SELFPAY ==
[2020-10-07 12:09] VITALS: BMI 42.4
[2020-11-11 12:04] VITALS: BMI 42.4
[2020-12-02 11:29] LABS: Absolute Lymphocyte Count 1.39 X10^3/uL (0.83-4.51); Absolute Neutrophil Count 4.2 X10^3/uL (2.0-7.7); Basophil# 0.04 X10^3/uL; Basophil% 0.6 % (0-1); Eosinophil# 0.39 X10^3/uL; Hemoglobin 9.9 g/dL (12.0-15.0); Lymphocyte # 1.39 X10^3/ul (4.0); Lymphocyte % 21.4 % (19-41); Mean Corp Hgb Conc 30.9 g/dL (32-36); Mean Corpuscular Hgb 31.6 pg (27.0-32.0); Mean Corpuscular Volume 102.2 fL (81-99); Mean Platelet Vol. 10.4 fl (6.2-12.0); Monocyte# 0.49 X10^3/uL; Monocyte% 7.5 % (0-10); NRBC Flagged by Analyzer 0 % (0-5); Neutrophil # 4.18 X10^3/uL (2.7-7.7); Neutrophil % 64.2 % (47-70); Platelet Count 258 K/mm3 (150-450); RBC Distribution Width CV 13.2 % (11.6-14.6); RBC Distribution Width SD 49.4 fl (35.1-43.9); Red Blood Count 3.13 M/mm3 (4.2-5.4); White Blood Count 6.5 K/mm3 (4.4-11.0)
[2020-12-02 11:33] VITALS: BP 112/53; PULSE 63; RESP 16; TEMP 36.3; O2SAT 96; BMI 42.4
[2020-12-02 11:47] LABS: Albumin, Serum 3.3 g/dL (3.2-5.0); BUN 62 mg/dL (7-18); BUN/Creat Ratio 27.1 RATIO (10-20); Calcium,Total 9.3 mg/dL (8.5-10.1); Chloride 109 mmol/L (98-107); Creatinine, Serum 2.29 mg/dL (0.55-1.02); EST Glomerular Filtration Rate 22 mL/min (>60); Est Glom Filt Rate - Afr Amer 26 mL/min (>60); Estimated Creatinine Clearance 18.34 ml/min; Ferritin 115 ng/mL (8-252); Glucose 69 mg/dL (74-106); Iron 46 ug/dL (50-170); Iron Binding Capacity,Total 226 ug/dL (250-450); Phosphorus 2.8 mg/dL (2.5-4.9); Potassium 3.8 mmol/L (3.5-5.1); Sodium Level 142 mmol/L (136-145)
[2020-12-02] MEDS: Epoetin Alfa epbx 10,000 UNITS/ML 10000 UNIT SC (11:51)
[2020-12-02 19:26] LABS: Xtra Tube EP Lab EXTRA TUBE
== END ==
PROVIDERS: Referring Provider Internal Medicine Nephrology; Visit Provider Internal Medicine Nephrology
DX: N18.4 Chronic kidney disease, stage 4 (severe) (principal); D63.1 Anemia in chronic kidney disease
CPT/HCPCS: 36415; 80069; 82728; 83540; 83550; 85025; 96372; Q5106

== ENCOUNTER 2020-12-16 11:21 | Outpatient (CLI) | payer MEDICARE, OTHER, SELFPAY ==
[2020-12-02 11:33] VITALS: BMI 42.4
[2020-12-16 11:51] LABS: Hematocrit 31.2 % (37-47); Hemoglobin 9.6 g/dL (12.0-15.0)
[2020-12-16 12:11] LABS: Albumin, Serum 2.8 g/dL (3.2-5.0); BUN 41 mg/dL (7-18); BUN/Creat Ratio 23.2 RATIO (10-20); Calcium,Total 8.9 mg/dL (8.5-10.1); Chloride 111 mmol/L (98-107); Creatinine, Serum 1.77 mg/dL (0.55-1.02); EST Glomerular Filtration Rate 29 mL/min (>60); Est Glom Filt Rate - Afr Amer 35 mL/min (>60); Glucose 112 mg/dL (74-106); Phosphorus 2.4 mg/dL (2.5-4.9); Potassium 3.6 mmol/L (3.5-5.1); Sodium Level 141 mmol/L (136-145)
[2020-12-16 12:19] VITALS: BP 90/40; PULSE 56; RESP 16; TEMP 36.7; O2SAT 97; BMI 42.4
[2020-12-16] MEDS: Epoetin Alfa epbx 10,000 UNITS/ML 10000 UNIT SC (12:24)
[2020-12-16 19:48] LABS: Xtra Tube EP Lab EXTRA TUBE
== END 2020-12-16 16:36 | disposition home or self-care (01) ==
LOC: MEDOUTP 11:21
PROVIDERS: Referring Provider Internal Medicine Nephrology; Visit Provider Internal Medicine Nephrology
DX: N18.4 Chronic kidney disease, stage 4 (severe) (principal); D63.1 Anemia in chronic kidney disease
CPT/HCPCS: 36415; 80069; 85014; 85018; 96372; Q5106

== ENCOUNTER 2020-12-30 11:21 | Outpatient (CLI) | payer MEDICARE, OTHER, SELFPAY ==
[2020-12-02 11:33] VITALS: BMI 42.4
[2020-12-30 11:39] VITALS: BP 163/52; PULSE 63; RESP 16; TEMP 36; O2SAT 94; BMI 41.9
[2020-12-30 11:40] LABS: Absolute Lymphocyte Count 1.43 X10^3/uL (0.83-4.51); Absolute Neutrophil Count 5.4 X10^3/uL (2.0-7.7); Basophil# 0.03 X10^3/uL; Basophil% 0.4 % (0-1); Eosinophil# 0.23 X10^3/uL; Eosinophils% 2.9 % (0-5); Hematocrit 32.9 % (37-47); Hemoglobin 10.1 g/dL (12.0-15.0); Lymphocyte # 1.43 X10^3/ul (4.0); Lymphocyte % 18.3 % (19-41); Mean Corp Hgb Conc 30.7 g/dL (32-36); Mean Corpuscular Hgb 31.6 pg (27.0-32.0); Mean Corpuscular Volume 102.8 fL (81-99); Mean Platelet Vol. 9.7 fl (6.2-12.0); Monocyte# 0.71 X10^3/uL; Monocyte% 9.1 % (0-10); NRBC Flagged by Analyzer 0 % (0-5); Neutrophil # 5.41 X10^3/uL (2.7-7.7); Platelet Count 316 K/mm3 (150-450); RBC Distribution Width CV 13.8 % (11.6-14.6); RBC Distribution Width SD 52.1 fl (35.1-43.9); White Blood Count 7.8 K/mm3 (4.4-11.0)
[2020-12-30 11:52] LABS: Albumin, Serum 3.2 g/dL (3.2-5.0); BUN 43 mg/dL (7-18); BUN/Creat Ratio 24.4 RATIO (10-20); Chloride 113 mmol/L (98-107); Creatinine, Serum 1.76 mg/dL (0.55-1.02); EST Glomerular Filtration Rate 30 mL/min (>60); Est Glom Filt Rate - Afr Amer 36 mL/min (>60); Estimated Creatinine Clearance 23.87 ml/min; Glucose 97 mg/dL (74-106); Phosphorus 2.4 mg/dL (2.5-4.9); Potassium 3.5 mmol/L (3.5-5.1); Sodium Level 144 mmol/L (136-145)
[2020-12-30] MEDS: Epoetin Alfa epbx 10,000 UNITS/ML 10000 UNIT SC (12:12)
[2020-12-30 19:36] LABS: Xtra Tube EP Lab EXTRA TUBE
== END 2020-12-30 16:23 | disposition home or self-care (01) ==
LOC: MEDOUTP 11:22
PROVIDERS: Visit Provider Internal Medicine Nephrology
DX: N18.4 Chronic kidney disease, stage 4 (severe) (principal); D63.1 Anemia in chronic kidney disease
CPT/HCPCS: 36415; 80069; 85025; 96372; Q5106

== ENCOUNTER → 2021-01-20 11:21 | Outpatient (CLI) | payer MEDICARE, OTHER, SELFPAY ==
[2020-12-30 11:39] VITALS: BMI 41.9
[2021-01-20 11:49] LABS: Absolute Lymphocyte Count 1.28 X10^3/uL (0.83-4.51); Absolute Neutrophil Count 4.9 X10^3/uL (2.0-7.7); Basophil# 0.03 X10^3/uL; Basophil% 0.4 % (0-1); Eosinophil# 0.25 X10^3/uL; Eosinophils% 3.5 % (0-5); Hematocrit 33.6 % (37-47); Lymphocyte # 1.28 X10^3/ul (0.83-4.51); Mean Corp Hgb Conc 29.8 g/dL (32-36); Mean Corpuscular Hgb 30.7 pg (27.0-32.0); Mean Corpuscular Volume 103.1 fL (81-99); Mean Platelet Vol. 9.9 fl (6.2-12.0); Monocyte# 0.61 X10^3/uL; Monocyte% 8.6 % (0-10); NRBC Flagged by Analyzer 0 % (0-5); Neutrophil # 4.85 X10^3/uL (2.7-7.7); Neutrophil % 68.4 % (47-70); Platelet Count 288 K/mm3 (150-450); RBC Distribution Width CV 14.1 % (11.6-14.6); RBC Distribution Width SD 53.5 fl (35.1-43.9); Red Blood Count 3.26 M/mm3 (4.2-5.4); White Blood Count 7.1 K/mm3 (4.4-11.0)
[2021-01-20 12:02] LABS: Albumin, Serum 3.1 g/dL (3.2-5.0); BUN 49 mg/dL (7-18); BUN/Creat Ratio 27.8 RATIO (10-20); Calcium,Total 8.9 mg/dL (8.5-10.1); Chloride 112 mmol/L (98-107); Creatinine, Serum 1.76 mg/dL (0.55-1.02); EST Glomerular Filtration Rate 30 mL/min (>60); Est Glom Filt Rate - Afr Amer 36 mL/min (>60); Glucose 66 mg/dL (74-106); Phosphorus 2.7 mg/dL (2.5-4.9); Potassium 3.7 mmol/L (3.5-5.1); Sodium Level 143 mmol/L (136-145)
[2021-01-20 12:04] VITALS: BP 151/44; PULSE 61; RESP 16
[2021-01-20] MEDS: Epoetin Alfa epbx 10,000 UNITS/ML 10000 UNIT SC (12:06)
[2021-01-20 19:46] LABS: Xtra Tube EP Lab EXTRA TUBE
== END ==
PROVIDERS: Referring Provider Internal Medicine Nephrology; Visit Provider Internal Medicine Nephrology
DX: N18.4 Chronic kidney disease, stage 4 (severe) (principal); D63.1 Anemia in chronic kidney disease
CPT/HCPCS: 36415; 80069; 85025; 96372; Q5106

== ENCOUNTER → 2021-02-03 11:24 | Outpatient (CLI) | payer MEDICARE, OTHER, SELFPAY ==
[2021-02-03 11:31] VITALS: BP 177/69; PULSE 61; RESP 16; TEMP 36.2; O2SAT 99; BMI 40.7
[2021-02-03 12:01] LABS: Hematocrit 36.9 % (37-47); Hemoglobin 11.4 g/dL (12.0-15.0)
[2021-02-03 19:53] LABS: Xtra Tube EP Lab EXTRA TUBE
== END ==
PROVIDERS: Referring Provider Internal Medicine Nephrology; Visit Provider Internal Medicine Nephrology
DX: N18.4 Chronic kidney disease, stage 4 (severe) (principal); D63.1 Anemia in chronic kidney disease
CPT/HCPCS: 36415; 85014; 85018

== ENCOUNTER → 2021-02-17 11:19 | Outpatient (CLI) | payer MEDICARE, OTHER, SELFPAY ==
[2021-02-03 11:31] VITALS: BMI 40.7
[2021-02-17 11:53] LABS: Hemoglobin 10.4 g/dL (12.0-15.0); Mean Corp Hgb Conc 30.6 g/dL (32-36); Mean Corpuscular Volume 101.5 fL (81-99); Mean Platelet Vol. 10.4 fl (6.2-12.0); Platelet Count 219 K/mm3 (150-450); RBC Distribution Width CV 13.9 % (11.6-14.6); RBC Distribution Width SD 51.9 fl (35.1-43.9); Red Blood Count 3.35 M/mm3 (4.2-5.4); White Blood Count 6.5 K/mm3 (4.4-11.0)
[2021-02-17 11:58] VITALS: BP 147/68; PULSE 63; RESP 18; O2SAT 98; BMI 40.7
[2021-02-17] MEDS: Epoetin Alfa epbx 10,000 UNITS/ML 10000 UNIT SC (12:01)
[2021-02-17 12:08] LABS: Albumin, Serum 3.2 g/dL (3.2-5.0); BUN 59 mg/dL (7-18); BUN/Creat Ratio 33.3 RATIO (10-20); Calcium,Total 9.1 mg/dL (8.5-10.1); Chloride 113 mmol/L (98-107); Creatinine, Serum 1.77 mg/dL (0.55-1.02); EST Glomerular Filtration Rate 29 mL/min (>60); Est Glom Filt Rate - Afr Amer 35 mL/min (>60); Ferritin 127 ng/mL (8-252); Glucose 84 mg/dL (74-106); Iron 57 ug/dL (50-170); Iron Binding Capacity,Total 253 ug/dL (250-450); PERCENT IRON SATURATION 22.5 % (15.0-55.0); Phosphorus 3.2 mg/dL (2.5-4.9); Potassium 4.1 mmol/L (3.5-5.1); Sodium Level 143 mmol/L (136-145)
== END ==
PROVIDERS: Referring Provider Internal Medicine Nephrology; Visit Provider Internal Medicine Nephrology
DX: N18.4 Chronic kidney disease, stage 4 (severe) (principal); D63.1 Anemia in chronic kidney disease
CPT/HCPCS: 36415; 80069; 82728; 83540; 83550; 85027; 96372; Q5106

== ENCOUNTER → 2021-03-03 11:19 | Outpatient (CLI) | payer MEDICARE, OTHER, SELFPAY ==
[2021-02-03 11:31] VITALS: BMI 40.7
[2021-02-17 11:58] VITALS: BMI 40.7
[2021-03-03 11:44] VITALS: BP 131/44; PULSE 60; RESP 16; O2SAT 97; BMI 40.7
[2021-03-03 11:46] LABS: Hemoglobin 10.8 g/dL (12.0-15.0); Mean Corp Hgb Conc 30.9 g/dL (32-36); Mean Corpuscular Volume 103.6 fL (81-99); Mean Platelet Vol. 9.9 fl (6.2-12.0); Platelet Count 212 K/mm3 (150-450); RBC Distribution Width CV 14.5 % (11.6-14.6); RBC Distribution Width SD 54.5 fl (35.1-43.9); Red Blood Count 3.38 M/mm3 (4.2-5.4); White Blood Count 5.4 K/mm3 (4.4-11.0)
[2021-03-03 11:59] LABS: Albumin, Serum 3.3 g/dL (3.2-5.0); BUN 58 mg/dL (7-18); BUN/Creat Ratio 30.2 RATIO (10-20); Calcium,Total 8.9 mg/dL (8.5-10.1); Chloride 109 mmol/L (98-107); Creatinine, Serum 1.92 mg/dL (0.55-1.02); EST Glomerular Filtration Rate 27 mL/min (>60); Est Glom Filt Rate - Afr Amer 32 mL/min (>60); Glucose 88 mg/dL (74-106); Phosphorus 3.3 mg/dL (2.5-4.9); Potassium 3.8 mmol/L (3.5-5.1); Sodium Level 143 mmol/L (136-145)
[2021-03-03] MEDS: Epoetin Alfa epbx 10,000 UNITS/ML 10000 UNIT SC (12:13)
[2021-03-03 19:42] LABS: Xtra Tube EP Lab EXTRA TUBE
== END ==
PROVIDERS: Referring Provider Internal Medicine Nephrology; Visit Provider Internal Medicine Nephrology
DX: N18.4 Chronic kidney disease, stage 4 (severe) (principal); D63.1 Anemia in chronic kidney disease
CPT/HCPCS: 36415; 80069; 85027; 96372; Q5106

== ENCOUNTER → 2021-03-17 11:23 | Outpatient (CLI) | payer MEDICARE, OTHER, SELFPAY ==
[2021-02-17 11:58] VITALS: BMI 40.7
[2021-03-03 11:44] VITALS: BMI 40.7
[2021-03-17 11:42] LABS: Hematocrit 35.3 % (37-47); Hemoglobin 10.7 g/dL (12.0-15.0); Mean Corp Hgb Conc 30.3 g/dL (32-36); Mean Corpuscular Hgb 31.6 pg (27.0-32.0); Mean Corpuscular Volume 104.1 fL (81-99); Mean Platelet Vol. 9.7 fl (6.2-12.0); Platelet Count 240 K/mm3 (150-450); RBC Distribution Width CV 14.3 % (11.6-14.6); RBC Distribution Width SD 55.1 fl (35.1-43.9); Red Blood Count 3.39 M/mm3 (4.2-5.4); White Blood Count 7.2 K/mm3 (4.4-11.0)
[2021-03-17 11:55] VITALS: BP 132/61; PULSE 66; RESP 16; TEMP 36.6; O2SAT 98
[2021-03-17] MEDS: Epoetin Alfa epbx 10,000 UNITS/ML 10000 UNIT SC (11:58)
[2021-03-17 11:59] LABS: Albumin, Serum 3.2 g/dL (3.2-5.0); BUN 54 mg/dL (7-18); BUN/Creat Ratio 30.2 RATIO (10-20); Calcium,Total 8.9 mg/dL (8.5-10.1); Chloride 114 mmol/L (98-107); Creatinine, Serum 1.79 mg/dL (0.55-1.02); EST Glomerular Filtration Rate 29 mL/min (>60); Est Glom Filt Rate - Afr Amer 35 mL/min (>60); Glucose 54 mg/dL (74-106); Phosphorus 2.5 mg/dL (2.5-4.9); Potassium 3.8 mmol/L (3.5-5.1); Sodium Level 143 mmol/L (136-145)
== END ==
PROVIDERS: Referring Provider Internal Medicine Nephrology; Visit Provider Internal Medicine Nephrology
DX: N18.4 Chronic kidney disease, stage 4 (severe) (principal); D63.1 Anemia in chronic kidney disease
CPT/HCPCS: 36415; 80069; 85027; 96372; Q5106

== ENCOUNTER → 2021-03-31 11:21 | Outpatient (CLI) | payer MEDICARE, OTHER, SELFPAY ==
[2021-03-03 11:44] VITALS: BMI 40.7
[2021-03-31 11:54] LABS: Absolute Lymphocyte Count 1.19 X10^3/uL (0.83-4.51); Absolute Neutrophil Count 3.9 X10^3/uL (2.0-7.7); Basophil# 0.04 X10^3/uL; Basophil% 0.7 % (0-1); Eosinophil# 0.18 X10^3/uL; Eosinophils% 3.1 % (0-5); Hematocrit 35.2 % (37-47); Hemoglobin 10.9 g/dL (12.0-15.0); Lymphocyte # 1.19 X10^3/ul (0.83-4.51); Lymphocyte % 20.6 % (19-41); Mean Corpuscular Hgb 31.9 pg (27.0-32.0); Mean Corpuscular Volume 102.9 fL (81-99); Monocyte# 0.49 X10^3/uL; Monocyte% 8.5 % (0-10); NRBC Flagged by Analyzer 0 % (0-5); Neutrophil # 3.85 X10^3/uL (2.7-7.7); Neutrophil % 66.8 % (47-70); Platelet Count 248 K/mm3 (150-450); RBC Distribution Width CV 14.4 % (11.6-14.6); RBC Distribution Width SD 54.4 fl (35.1-43.9); Red Blood Count 3.42 M/mm3 (4.2-5.4); White Blood Count 5.8 K/mm3 (4.4-11.0)
[2021-03-31 12:05] VITALS: BP 108/56; PULSE 68; RESP 16
[2021-03-31 12:05] LABS: Albumin, Serum 3.3 g/dL (3.2-5.0); BUN 61 mg/dL (7-18); BUN/Creat Ratio 33.5 RATIO (10-20); Calcium,Total 8.8 mg/dL (8.5-10.1); Chloride 112 mmol/L (98-107); Creatinine, Serum 1.82 mg/dL (0.55-1.02); EST Glomerular Filtration Rate 28 mL/min (>60); Est Glom Filt Rate - Afr Amer 34 mL/min (>60); Glucose 59 mg/dL (74-106); Phosphorus 3.1 mg/dL (2.5-4.9); Potassium 3.9 mmol/L (3.5-5.1); Sodium Level 143 mmol/L (136-145)
[2021-03-31 12:15] LABS: Bacteria 0 SEEN /hpf (None Seen); Mucous, Urine 0 SEEN /hpf (<or=2+); Red Blood Cells-Urine 0 SEEN /hpf (0-5)
[2021-03-31 12:17] LABS: Color, Urine Yellow (Yellow); Glucose, Dipstick Normal (Normal); Ketone-Dipstick Negative (Negative); Leukocyte Esterase-Dipstick 25 /ul (Negative); Nitrite-Dipstick Negative (Negative); Occult Blood-Urine Negative /ul (Negative); Protein-Dipstick 15 mg/dl (Negative); Urine Bilirubin Dipstick Negative (Negative); Urine Clarity Clear (Clear); Urine Urobilinogen Normal (Normal)
[2021-03-31 12:20] LABS: PTHIN 249.3 pg/mL (18.4-80.1)
[2021-03-31 12:27] LABS: Protein, Urine (Random) 15.7 mg/dL (<11.9); Protein:Creat Ratio 567 mg/g CRE (0-200)
[2021-03-31] MEDS: Epoetin Alfa epbx 10,000 UNITS/ML 10000 UNIT SC (12:28)
[2021-03-31 12:29] LABS: Squamous Epithelial Cells - UA 0-5 SEEN /hpf (5-10); White Blood Cells 0-5 SEEN /hpf (0-5)
[2021-03-31 13:31] LABS: Vitamin D,25 Hydroxy 18.2 ng/mL
== END ==
LOC: MEDOUTP 11:21
PROVIDERS: Internal Medicine; Referring Provider Internal Medicine Nephrology; Visit Provider Internal Medicine Nephrology
DX: N18.4 Chronic kidney disease, stage 4 (severe) (principal); D63.1 Anemia in chronic kidney disease; N25.81 Secondary hyperparathyroidism of renal origin
CPT/HCPCS: 36415; 80069; 81001; 82306; 82570; 83970; 84156; 85025; 96372; Q5106

== ENCOUNTER → 2021-04-14 11:21 | Outpatient (CLI) | payer MEDICARE, OTHER, SELFPAY ==
[2021-03-03 11:44] VITALS: BMI 40.7
[2021-04-14 11:59] LABS: Hematocrit 35.9 % (37-47); Hemoglobin 10.9 g/dL (12.0-15.0); Mean Corp Hgb Conc 30.4 g/dL (32-36); Mean Corpuscular Hgb 31.7 pg (27.0-32.0); Mean Corpuscular Volume 104.4 fL (81-99); Mean Platelet Vol. 9.5 fl (6.2-12.0); Platelet Count 294 K/mm3 (150-450); RBC Distribution Width CV 14.2 % (11.6-14.6); RBC Distribution Width SD 54.6 fl (35.1-43.9); Red Blood Count 3.44 M/mm3 (4.2-5.4); White Blood Count 6.3 K/mm3 (4.4-11.0)
[2021-04-14 12:14] LABS: Albumin, Serum 3.4 g/dL (3.2-5.0); BUN 54 mg/dL (7-18); BUN/Creat Ratio 30.2 RATIO (10-20); Calcium,Total 8.9 mg/dL (8.5-10.1); Chloride 112 mmol/L (98-107); Creatinine, Serum 1.79 mg/dL (0.55-1.02); EST Glomerular Filtration Rate 29 mL/min (>60); Est Glom Filt Rate - Afr Amer 35 mL/min (>60); Glucose 99 mg/dL (74-106); Potassium 4.2 mmol/L (3.5-5.1); Sodium Level 143 mmol/L (136-145)
[2021-04-14 19:55] LABS: Xtra Tube EP Lab EXTRA TUBE
== END ==
PROVIDERS: Referring Provider Internal Medicine Nephrology; Visit Provider Internal Medicine Nephrology
DX: N18.4 Chronic kidney disease, stage 4 (severe) (principal); D63.1 Anemia in chronic kidney disease
CPT/HCPCS: 36415; 80069; 85027

== ENCOUNTER → 2021-04-28 11:30 | Outpatient (CLI) | payer MEDICARE, OTHER, SELFPAY ==
[2021-03-03 11:44] VITALS: BMI 40.7
[2021-04-28 12:05] LABS: Absolute Lymphocyte Count 1.19 X10^3/uL (0.83-4.51); Absolute Neutrophil Count 3.7 X10^3/uL (2.0-7.7); Basophil# 0.04 X10^3/uL; Basophil% 0.7 % (0-1); Eosinophil# 0.26 X10^3/uL; Eosinophils% 4.5 % (0-5); Hemoglobin 10.1 g/dL (12.0-15.0); Lymphocyte # 1.19 X10^3/ul (0.83-4.51); Lymphocyte % 20.7 % (19-41); Mean Corp Hgb Conc 30.6 g/dL (32-36); Mean Corpuscular Hgb 32.1 pg (27.0-32.0); Mean Corpuscular Volume 104.8 fL (81-99); Mean Platelet Vol. 9.6 fl (6.2-12.0); Monocyte# 0.53 X10^3/uL; Monocyte% 9.2 % (0-10); NRBC Flagged by Analyzer 0 % (0-5); Neutrophil # 3.71 X10^3/uL (2.7-7.7); Neutrophil % 64.4 % (47-70); Platelet Count 214 K/mm3 (150-450); RBC Distribution Width SD 53.8 fl (35.1-43.9); Red Blood Count 3.15 M/mm3 (4.2-5.4); White Blood Count 5.8 K/mm3 (4.4-11.0)
[2021-04-28 12:29] LABS: Albumin, Serum 3.2 g/dL (3.2-5.0); BUN 51 mg/dL (7-18); BUN/Creat Ratio 31.9 RATIO (10-20); Calcium,Total 8.7 mg/dL (8.5-10.1); Chloride 113 mmol/L (98-107); EST Glomerular Filtration Rate 33 mL/min (>60); Est Glom Filt Rate - Afr Amer 40 mL/min (>60); Glucose 73 mg/dL (74-106); Phosphorus 2.8 mg/dL (2.5-4.9); Potassium 3.7 mmol/L (3.5-5.1); Sodium Level 145 mmol/L (136-145)
[2021-04-29 02:04] LABS: Xtra Tube EP Lab EXTRA TUBE
== END ==
PROVIDERS: Referring Provider Internal Medicine Nephrology; Visit Provider Internal Medicine Nephrology
DX: N18.4 Chronic kidney disease, stage 4 (severe) (principal); D63.1 Anemia in chronic kidney disease
CPT/HCPCS: 36415; 80069; 85025

== ENCOUNTER → 2021-05-12 11:19 | Outpatient (CLI) | payer MEDICARE, OTHER, SELFPAY ==
[2021-03-03 11:44] VITALS: BMI 40.7
[2021-05-12 11:43] LABS: Hematocrit 31.6 % (37-47); Hemoglobin 9.8 g/dL (12.0-15.0); Mean Corpuscular Hgb 32.2 pg (27.0-32.0); Mean Corpuscular Volume 103.9 fL (81-99); Mean Platelet Vol. 10.2 fl (6.2-12.0); Platelet Count 225 K/mm3 (150-450); RBC Distribution Width CV 13.5 % (11.6-14.6); RBC Distribution Width SD 52.1 fl (35.1-43.9); Red Blood Count 3.04 M/mm3 (4.2-5.4); White Blood Count 7.1 K/mm3 (4.4-11.0)
[2021-05-12 12:00] VITALS: BP 156/45; PULSE 65; RESP 16; TEMP 36.6; O2SAT 96; BMI 39.6
[2021-05-12 12:00] LABS: Albumin, Serum 3.3 g/dL (3.2-5.0); BUN 48 mg/dL (7-18); BUN/Creat Ratio 29.6 RATIO (10-20); Calcium,Total 8.8 mg/dL (8.5-10.1); Chloride 115 mmol/L (98-107); Creatinine, Serum 1.62 mg/dL (0.55-1.02); EST Glomerular Filtration Rate 32 mL/min (>60); Est Glom Filt Rate - Afr Amer 39 mL/min (>60); Glucose 42 mg/dL (74-106); Phosphorus 2.4 mg/dL (2.5-4.9); Potassium 3.4 mmol/L (3.5-5.1); Sodium Level 145 mmol/L (136-145)
[2021-05-12] MEDS: Epoetin Alfa epbx 10,000 UNITS/ML 10000 UNIT SC (12:10)
--- NOTE | 2021-05-12 13:08 | NURSING ---
BG 135 before discharge.
--- NOTE | 2021-05-12 13:10 | NURSING ---
Patient BG is 136 before discharge.
[2021-05-12 13:15] LABS: Bedside Glucose 136 mg/dL (70-110)
[2021-05-12 19:41] LABS: Xtra Tube EP Lab EXTRA TUBE
== END ==
PROVIDERS: Referring Provider Internal Medicine Nephrology; Visit Provider Internal Medicine Nephrology
DX: E11.22 Type 2 diabetes mellitus with diabetic chronic kidney disease (principal); N18.4 Chronic kidney disease, stage 4 (severe); D63.1 Anemia in chronic kidney disease
CPT/HCPCS: 36415; 80069; 82962; 85027; 96372; Q5106

== ENCOUNTER → 2021-05-15 08:37 | Outpatient (CLI) | payer MEDICARE, OTHER, SELFPAY ==
[2021-05-15 09:57] LABS: ALB/GLOB Ratio 1.1 RATIO (0.9-2.4); AST(SGOT) 14 U/L (15-37); Alanine Aminotransfer ALT/SGPT 18 U/L (13-56); Albumin, Serum 3.2 g/dL (3.2-5.0); Alkaline Phosphatase 91 U/L (45-117); Anion Gap 9 (5-15); BUN 47 mg/dL (7-18); BUN/Creat Ratio 29.7 RATIO (10-20); Calcium,Total 8.7 mg/dL (8.5-10.1); Chloride 110 mmol/L (98-107); Cholesterol 120 mg/dL (200); Creatinine, Serum 1.58 mg/dL (0.55-1.02); EST Glomerular Filtration Rate 33 mL/min (>60); Est Glom Filt Rate - Afr Amer 40 mL/min (>60); Glucose 143 mg/dL (74-106); High Density Lipoprotein 56 mg/dL; Potassium 3.7 mmol/L (3.5-5.1); Protein, Total 6.2 g/dL (6.4-8.2); Sodium Level 144 mmol/L (136-145); Triglycerides 73 mg/dL; Very Low Density Lipoprotein 15 mg/dL (5-40)
[2021-05-15 10:03] LABS: Hemoglobin A1c 5.9 % (3.8-5.6)
== END ==
PROVIDERS: Visit Provider Nurse Practitioner Family
DX: I12.9 Hypertensive chronic kidney disease with stage 1 through stage 4 chronic kidney disease, or unspecified chronic kidney disease (principal); E11.22 Type 2 diabetes mellitus with diabetic chronic kidney disease; E78.2 Mixed hyperlipidemia; N18.4 Chronic kidney disease, stage 4 (severe)
CPT/HCPCS: 36415; 80053; 80061; 83036

== ENCOUNTER → 2021-05-26 11:22 | Outpatient (CLI) | payer MEDICARE, OTHER, SELFPAY ==
[2021-05-26 12:16] LABS: Hematocrit 30.6 % (37-47); Hemoglobin 9.4 g/dL (12.0-15.0); Mean Corp Hgb Conc 30.7 g/dL (32-36); Mean Corpuscular Hgb 32.5 pg (27.0-32.0); Mean Corpuscular Volume 105.9 fL (81-99); Mean Platelet Vol. 10.5 fl (6.2-12.0); Platelet Count 224 K/mm3 (150-450); RBC Distribution Width CV 13.4 % (11.6-14.6); RBC Distribution Width SD 52.3 fl (35.1-43.9); Red Blood Count 2.89 M/mm3 (4.2-5.4); White Blood Count 6.2 K/mm3 (4.4-11.0)
[2021-05-26 12:36] LABS: Albumin, Serum 2.8 g/dL (3.2-5.0); BUN 46 mg/dL (7-18); BUN/Creat Ratio 28.4 RATIO (10-20); Calcium,Total 8.5 mg/dL (8.5-10.1); Chloride 115 mmol/L (98-107); Creatinine, Serum 1.62 mg/dL (0.55-1.02); EST Glomerular Filtration Rate 32 mL/min (>60); Est Glom Filt Rate - Afr Amer 39 mL/min (>60); Ferritin 74 ng/mL (8-252); Glucose 140 mg/dL (74-106); Iron 31 ug/dL (50-170); Iron Binding Capacity,Total 218 ug/dL (250-450); PERCENT IRON SATURATION 14.2 % (15.0-55.0); Phosphorus 2.4 mg/dL (2.5-4.9); Potassium 3.9 mmol/L (3.5-5.1); Sodium Level 144 mmol/L (136-145)
[2021-05-26 12:44] VITALS: BP 166/56; PULSE 60; RESP 16; TEMP 35.9; O2SAT 97; BMI 39.6
[2021-05-26] MEDS: Epoetin Alfa epbx 10,000 UNITS/ML 10000 UNIT SC (12:47)
[2021-05-26 20:10] LABS: Xtra Tube EP Lab EXTRA TUBE
== END ==
PROVIDERS: Referring Provider Internal Medicine Nephrology; Visit Provider Internal Medicine Nephrology
DX: N18.4 Chronic kidney disease, stage 4 (severe) (principal); D63.1 Anemia in chronic kidney disease
CPT/HCPCS: 36415; 80069; 82728; 83540; 83550; 85027; 96372; Q5106

== ENCOUNTER → 2021-06-09 11:12 | Outpatient (CLI) | payer MEDICARE, OTHER, SELFPAY ==
[2021-06-09 11:28] LABS: Hematocrit 33.7 % (37-47); Hemoglobin 10.3 g/dL (12.0-15.0)
[2021-06-09 11:58] VITALS: BP 150/56; PULSE 64; RESP 16; TEMP 36.2; O2SAT 97
[2021-06-09] MEDS: Epoetin Alfa epbx 10,000 UNITS/ML 10000 UNIT SC (12:02)
== END ==
PROVIDERS: Referring Provider Internal Medicine Nephrology; Visit Provider Internal Medicine Nephrology
DX: N18.4 Chronic kidney disease, stage 4 (severe) (principal); D63.1 Anemia in chronic kidney disease
CPT/HCPCS: 36415; 85014; 85018; 96372; Q5106

== ENCOUNTER → 2021-06-23 11:18 | Outpatient (CLI) | payer MEDICARE, OTHER, SELFPAY ==
[2021-06-23 11:36] LABS: Hematocrit 31.8 % (37-47); Hemoglobin 9.6 g/dL (12.0-15.0); Mean Corp Hgb Conc 30.2 g/dL (32-36); Mean Corpuscular Hgb 31.8 pg (27.0-32.0); Mean Corpuscular Volume 105.3 fL (81-99); Mean Platelet Vol. 10.5 fl (6.2-12.0); Platelet Count 227 K/mm3 (150-450); RBC Distribution Width CV 12.7 % (11.6-14.6); RBC Distribution Width SD 49.3 fl (35.1-43.9); Red Blood Count 3.02 M/mm3 (4.2-5.4); White Blood Count 6.6 K/mm3 (4.4-11.0)
[2021-06-23 11:50] LABS: Albumin, Serum 2.9 g/dL (3.2-5.0); BUN 42 mg/dL (7-18); Calcium,Total 8.8 mg/dL (8.5-10.1); Chloride 112 mmol/L (98-107); Creatinine, Serum 1.68 mg/dL (0.55-1.02); EST Glomerular Filtration Rate 31 mL/min (>60); Est Glom Filt Rate - Afr Amer 38 mL/min (>60); Glucose 122 mg/dL (74-106); Phosphorus 2.7 mg/dL (2.5-4.9); Potassium 3.8 mmol/L (3.5-5.1); Sodium Level 144 mmol/L (136-145)
[2021-06-23 12:04] VITALS: BP 146/68; PULSE 53; RESP 16; TEMP 36.6; O2SAT 95; BMI 40.7
[2021-06-23] MEDS: Epoetin Alfa epbx 10,000 UNITS/ML 10000 UNIT SC (12:23)
[2021-06-23 19:33] LABS: Xtra Tube EP Lab EXTRA TUBE
== END ==
PROVIDERS: Referring Provider Internal Medicine Nephrology; Visit Provider Internal Medicine Nephrology
DX: N18.4 Chronic kidney disease, stage 4 (severe) (principal); D63.1 Anemia in chronic kidney disease
CPT/HCPCS: 36415; 80069; 85027; 96372; Q5106

== ENCOUNTER → 2021-07-08 14:44 | Outpatient (CLI) | payer MEDICARE, OTHER, SELFPAY ==
[2021-07-08 15:15] LABS: Hematocrit 36.5 % (37-47); Hemoglobin 11.1 g/dL (12.0-15.0)
== END ==
PROVIDERS: Referring Provider Internal Medicine Nephrology; Visit Provider Internal Medicine Nephrology
DX: N18.4 Chronic kidney disease, stage 4 (severe) (principal); D63.1 Anemia in chronic kidney disease
CPT/HCPCS: 36415; 85014; 85018

== ENCOUNTER → 2021-07-21 11:20 | Outpatient (CLI) | payer MEDICARE, OTHER, SELFPAY ==
[2021-07-21 11:42] LABS: Absolute Lymphocyte Count 1.63 X10^3/uL (0.83-4.51); Absolute Neutrophil Count 5.3 X10^3/uL (2.0-7.7); Basophil# 0.03 X10^3/uL; Basophil% 0.4 % (0-1); Eosinophil# 0.26 X10^3/uL; Eosinophils% 3.3 % (0-5); Hematocrit 35.3 % (37-47); Hemoglobin 11.2 g/dL (12.0-15.0); Lymphocyte # 1.63 X10^3/ul (0.83-4.51); Lymphocyte % 20.4 % (19-41); Mean Corp Hgb Conc 31.7 g/dL (32-36); Mean Corpuscular Volume 100.9 fL (81-99); Mean Platelet Vol. 10.6 fl (6.2-12.0); Monocyte# 0.68 X10^3/uL; Monocyte% 8.5 % (0-10); NRBC Flagged by Analyzer 0 % (0-5); Neutrophil # 5.32 X10^3/uL (2.7-7.7); Neutrophil % 66.4 % (47-70); Platelet Count 170 K/mm3 (150-450); RBC Distribution Width CV 12.7 % (11.6-14.6); RBC Distribution Width SD 47.1 fl (35.1-43.9)
[2021-07-21 11:52] VITALS: BP 146/66; PULSE 66; RESP 18; TEMP 35.7; O2SAT 100; BMI 40.7
[2021-07-21 11:53] LABS: Albumin, Serum 3.2 g/dL (3.2-5.0); BUN 53 mg/dL (7-18); BUN/Creat Ratio 29.1 RATIO (10-20); Calcium,Total 9.2 mg/dL (8.5-10.1); Chloride 113 mmol/L (98-107); Creatinine, Serum 1.82 mg/dL (0.55-1.02); EST Glomerular Filtration Rate 28 mL/min (>60); Est Glom Filt Rate - Afr Amer 34 mL/min (>60); Glucose 85 mg/dL (74-106); Phosphorus 2.8 mg/dL (2.5-4.9); Potassium 3.9 mmol/L (3.5-5.1); Sodium Level 144 mmol/L (136-145)
== END ==
PROVIDERS: Referring Provider Internal Medicine Nephrology; Visit Provider Internal Medicine Nephrology
DX: N18.4 Chronic kidney disease, stage 4 (severe) (principal); D63.1 Anemia in chronic kidney disease
CPT/HCPCS: 36415; 80069; 85025

== ENCOUNTER 2021-07-22 14:04 | Observation (INO) | payer MEDICARE, OTHER, SELFPAY ==
[2021-07-22] VITALS (15 sets, daily range): BP systolic 112–190; BP diastolic 52–92; PULSE 55–68; RESP 12–18; TEMP 36.2–36.5; O2SAT 96–98; BMI 39.6; BMI 41.9
--- NOTE | 2021-07-22 14:06 | NURSING ---
NO OLD EKGS
--- NOTE | 2021-07-22 14:57 | RAD_ITS ---
STUDY: X-RAY CHEST REASON FOR EXAM: Female, 81 years old. Chest pain TECHNIQUE: Single AP portable view of the chest. COMPARISON: None. FINDINGS: EKG electrodes are seen. Minimal increased markings are seen in the right perihilar region. Early infiltrate should be ruled out. There is no demonstrated pleural abnormality. Normal size heart. Normal mediastinum and fredy. Normal visualized pulmonary arteries. Normal visualized aortic arch and descending thoracic aorta. Normal visualized thoracic spine. Normal visualized ribs, clavicles, and shoulders. There is no demonstrated abnormality of the visualized soft tissue structures of the upper abdomen. RAD/Chest 1 View (Portable) IMPRESSION: Minimal increased markings are seen in the right perihilar region. Follow-up is recommended. Electronically Signed: Balwinder Mcleod MD at 15:26 EDT , Service support ,
--- NOTE | 2021-07-22 14:57 | EKG12_ITS ---
Test Reason : CP Blood Pressure : / mmHG Vent. Rate : 062 BPM Atrial Rate : 062 BPM P-R Int : 180 ms QRS Dur : 080 ms QT Int : 420 ms P-R-T Axes : 045 019 077 degrees QTc Int : 426 ms Sinus rhythm with occasional Premature ventricular complexes Low voltage QRS Borderline ECG Confirmed by NATASHA CLANCY, VICKI ([id number]), research editor OBED RENTERIA ([id number]) on 07/26/2021 10:17:28 A M Referred By: MARSHALL Confirmed By:PATRICIA KAUR MD
--- NOTE | 2021-07-22 14:59 | EDS_ITS ---
HPI History of Present Illness Chief Complaint: Chest Pain Informant: patient Narrative Narrative: Patient was at home. She was going to go to the bathroom. She got the onset of some heaviness but she got pain in her back. It was her upper back and radiated up to her neck. She got a bit lightheaded with it. She had slight shortness of breath. No nausea. EMS had stated she was diaphoretic but patient states she did not recall feeling diaphoretic with this. It lasted about 20 or 30 minutes. She now feels well. The pain radiated it did not migrate. She has no distal numbness tingling weakness. Nothing specifically made it start or stop. She has never had it before. She denies heart disease other than an occasional irregular heart rate that has not needed treatment. She has not had heart catheterization or stress test. Patient does have diabetes high blood pressure and cholesterol. She had family history of heart disease but it sounds like it been start until 60s. Her mother actually just 5 years ago. No recent travel surgery immobilization personal or family history of DVT or PE. She has chronic lower extremity lymphedema but has not changed or different. [facility] Medical History (Updated 07/22/21 @ 16:[address] Vidya Murray MD) Chronic acquired lymphedema Chronic anemia CKD (chronic kidney disease), stage IV HLD (hyperlipidemia) HTN (hypertension) Idiopathic parathyroidism Type 2 diabetes mellitus with diabetic neuropathy Home Medications aspirin 81 mg PO DAILY@0800 06/21/13 [History Last Taken Unknown] atorvastatin 40 mg PO QHS 06/21/13 [History Last Taken Unknown] diltiazem HCl 300 mg PO DAILY 06/21/13 [History Last Taken Unknown] doxazosin [Cardura] 2 mg PO DAILY 06/21/13 [History Last Taken Unknown] ergocalciferol (vitamin D2) [Vitamin D] 1 unit PO QMONTH 06/21/13 [History Last Taken Unknown] furosemide 40 mg PO DAILY 06/21/13 [History Last Taken Unknown] insulin detemir U-100 [Levemir FlexPen] 40 units SUBCUT QHS 06/21/13 [History Last Taken Unknown] insulin lispro [Humalog] 9 unit SQ BID 06/21/13 [History Last Taken Unknown] quinapril 40 mg PO DAILY 06/21/13 [History Last Taken Unknown] Allergy/AdvReac Type Severity Reaction Status Date / Time Penicillins [PCN] Allergy Mild Rash Verified 07/22/21 14:09 Iodinated Contrast Media AdvReac Hives Verified 07/22/21 14:09 Social History Smoking Status: Never smoker ROS ROS ED Constitutional Constitutional ED: Denies fever(s) Eyes Eyes: Denies change in vision ENT ENT ED: Denies rhinorrhea or sore throat Cardiovascular Cardiovascular: Reports as per HPI and chest pain; Denies palpitations or racing heartbeat Respiratory/Chest Respiratory/Chest: Reports dyspnea; Denies cough or sputum Gastrointestinal Gastrointestinal: Denies nausea or vomiting Musculoskeletal Musculoskeletal: Reports back pain and neck pain; Denies arthralgias or myalgias Integumentary Reports other Details: Possible diaphoresis. See history of present illness. ; Denies rash Neurologic Neurologic: Denies headache(s), paresthesias or weakness Endocrine Endocrinology: Denies polydipsia or polyuria Hematologic/Lymphatic Hematologic/Lymphatic: Reports other Details: Patient takes baby aspirin but no other anticoagulation. ; Denies easy bleeding or easy bruising Allergic/Immunologic Allergic/Immunologic ED: Denies urticaria EXAM Physical Exam Const Vital Signs: 07/22/21 14:05 07/22/21 14:09 07/22/21 14:59 Temperature 97.6 F L Temperature Source Oral Pulse Rate 66 60 Respiratory Rate 12 15 Respiratory Effort Normal Non-Labored Respiratory Pattern Normal Blood Pressure 112/53 L 135/52 H Blood Pressure Mean 72 79 Pulse Ox 97 97 Oxygen Delivery Method Room Air Room Air 07/22/21 15:09 07/22/21 15:13 07/22/21 16:00 Temperature Temperature Source Pulse Rate 60 59 L Respiratory Rate 15 12 Respiratory Effort Respiratory Pattern Blood Pressure 134/78 H 136/63 H Blood Pressure Mean 96 87 Pulse Ox 96 96 98 Oxygen Delivery Method Room Air Room Air Patient is awake alert. She looks nontoxic. She looks comfortable. There is no diaphoresis at this time. Positive well nourished and well developed General Appearance ED: well developed and NAD HEENT normocephalic and atraumatic Eyes General Eye ED: Negative for pale conjunctiva or scleral icterus Neck no lymphadenopathy and no JVD Neck Narrative: No bruit heard Chest Wall inspection of chest normal and palpation of chest normal Chest Narrative: No pain with motion or deep breath. Resp normal respiratory effort and clear to auscultation bilaterally Effort and Inspection: Negative for respiratory distress Auscultation: Negative for rales, rhonchi or wheezes Cardio regular rate; Negative for no murmurs Rate: other Other Details: Heart rate is regular in the 60s. No muffled tones. She does have a slight 1 out of 6 to 2 out of 6 murmur. She states this is not new. Peripheral pulses are equal and normal. GI normal to inspection, nondistended, normoactive bowel sounds Back/Spine no CVA tenderness Extremity Extremity Narrative: Bilateral lower extremity show significant chronic edema and stasis changes. However she states this is her normal. Neuro Sensorium / Orientation: awake and alert Skin no rashes or lesions noted Heart Score History: Moderately Suspicious ECG: Nonspecific Repolarization Age: >/= 65 years Risk Factors: >/= 3 Risk Factors or History of CAD Troponin: </= Normal Limit Score: 6 MDM MDM MDM Narrative Medical decision making narrative: Patient's blood work show mild anemia. She has just slight worsening of her chronic renal disease. Troponin is negative. I did repeat an EKG. On her first 1 I was concerned that there may have been just the most subtle ST change in V5 V6. I do not see any marked interval change. It might be just a hair flatter than originally. I do not have any prior EKGs. Patient's pain was relieved with nitro. She is pain-free at this time. X-ray shows minimal increased markings but is very minimal and she is not having any pulmonary symptoms. Patient will be placed in observation in PCU. Lab Data Attestation: I reviewed the patient's lab results. Labs: Laboratory Results - last 24 hr 07/22/21 07/22/21 13:55 13:55 WBC 7.4 RBC 3.57 L Hgb 11.2 L Hct 36.3 L MCV 101.7 H MCH 31.4 MCHC 30.9 L RDW Std Deviation 47.5 H RDW Coeff of Fay 12.6 Plt Count 199 MPV 11.4 Immature Gran % (Auto) 0.400 Neut % (Auto) 64.2 Lymph % (Auto) 23.7 Chaves % (Auto) 7.7 Eos % (Auto) 3.6 Baso % (Auto) 0.4 Absolute Neuts (auto) 4.8 Absolute Lymphs (auto) 1.76 Nucleated RBC % 0 Sodium 146 H Potassium 3.7 Chloride 113 H Carbon Dioxide 25.0 Anion Gap 8 BUN 52 H Creatinine 1.92 H Estim Creat Clear Calc 22.35 Est GFR (MDRD) Af Amer 32 L Est GFR (MDRD) Non-Af 27 L BUN/Creatinine Ratio 27.1 H Glucose 128 H Calcium 9.1 Troponin I High Sens 13 Radiography Diagnostic Testing: Clinical Impression(s) from Imaging Studies Chest X-Ray 07/22/21 14:57 IMPRESSION: Minimal increased markings are seen in the right perihilar region. Follow-up is recommended. Electronically Signed: Balwinder Mcleod MD at 15:26 EDT , Service support , EKG Initial EKG: Comments: EKG done for history of chest pain and read by me shows sinus rhythm with occasional PVC and an overall rate of 62. There is diffuse nonspecific ST and T wave changes. However, no sign of ST depression or elevation. Slightly poor anterior R wave. TX interval, QRS duration and QTc normal. No old for comparison. Discharge Plan Triage Chief Complaint: Chest Pain ED Provider: Binh Jeter Dx/Rx/DC Orders Clinical Impression: Chest pain Prescriptions: No Action ergocalciferol (vitamin D2) [Vitamin D2] 50,000 UNIT capsule 1 unit PO QMONTH RF: 0 diltiazem HCl 60 MG tablet 300 mg PO DAILY RF: 0 furosemide 40 MG tablet 40 mg PO DAILY RF: 0 atorvastatin 40 MG tablet 40 mg PO QHS RF: 0 doxazosin [Cardura] 2 MG tablet 2 mg PO DAILY RF: 0 quinapril 40 mg Tablet 40 mg PO DAILY RF: 0 aspirin 81 MG tablet,chewable 81 mg PO DAILY@0800 RF: 0 insulin lispro [Humalog U-100 Insulin] 100 UNIT/ML solution 9 unit SQ BID RF: 0 Levemir FlexTouch U-100 Insuln 100 UNITS/ML insulin pen 40 units subcut QHS RF: 0 Primary Care Provider: Sly Martin Referrals: Sly Martin MD [Primary Care Provider] - Disposition Disposition: Acute Care Hospital [facility]
[2021-07-22 15:14] LABS: Absolute Lymphocyte Count 1.76 X10^3/uL (0.83-4.51); Absolute Neutrophil Count 4.8 X10^3/uL (2.0-7.7); Basophil# 0.03 X10^3/uL; Basophil% 0.4 % (0-1); Eosinophil# 0.27 X10^3/uL; Eosinophils% 3.6 % (0-5); Hematocrit 36.3 % (37-47); Hemoglobin 11.2 g/dL (12.0-15.0); Lymphocyte # 1.76 X10^3/ul (0.83-4.51); Lymphocyte % 23.7 % (19-41); Mean Corp Hgb Conc 30.9 g/dL (32-36); Mean Corpuscular Hgb 31.4 pg (27.0-32.0); Mean Corpuscular Volume 101.7 fL (81-99); Mean Platelet Vol. 11.4 fl (6.2-12.0); Monocyte# 0.57 X10^3/uL; Monocyte% 7.7 % (0-10); NRBC Flagged by Analyzer 0 % (0-5); Neutrophil # 4.76 X10^3/uL (2.7-7.7); Neutrophil % 64.2 % (47-70); Platelet Count 199 K/mm3 (150-450); RBC Distribution Width CV 12.6 % (11.6-14.6); RBC Distribution Width SD 47.5 fl (35.1-43.9); Red Blood Count 3.57 M/mm3 (4.2-5.4); White Blood Count 7.4 K/mm3 (4.4-11.0)
[2021-07-22 15:28] LABS: Anion Gap 8 (5-15); BUN 52 mg/dL (7-18); BUN/Creat Ratio 27.1 RATIO (10-20); Calcium,Total 9.1 mg/dL (8.5-10.1); Chloride 113 mmol/L (98-107); Creatinine, Serum 1.92 mg/dL (0.55-1.02); EST Glomerular Filtration Rate 27 mL/min (>60); Est Glom Filt Rate - Afr Amer 32 mL/min (>60); Estimated Creatinine Clearance 22.35 ml/min; Glucose 128 mg/dL (74-106); Potassium 3.7 mmol/L (3.5-5.1); Sodium Level 146 mmol/L (136-145); Troponin-I HS 13 pg/mL (3.0-54.0)
--- NOTE | 2021-07-22 16:03 | EKG12_ITS ---
Test Reason : REPEAT Blood Pressure : / mmHG Vent. Rate : 057 BPM Atrial Rate : 057 BPM P-R Int : 196 ms QRS Dur : 088 ms QT Int : 456 ms P-R-T Axes : 042 004 056 degrees QTc Int : 443 ms Sinus bradycardia Left axis deviation Low voltage QRS Incomplete left bundle branch block Confirmed by NATASHA CLANCY, VICKI ([id number]), research editor OBED RENTERIA ([id number]) on 07/26/2021 10:19:25 A M Referred By: FRANSICO Confirmed By:PATRICIA KAUR MD
--- NOTE | 2021-07-22 16:20 | HP.PCM.HOS_ITS ---
HPI - General General Date of Admission: 07/22/21 Date of Service: 07/22/21 Chief Complaint: Chest pain HPI Narrative The patient is an 81 y/o F w/ PMHx: Chronic anemia/AOCD, CKD stage IV following w/ Dr. Wells, Diabetes mellitus type II with neuropathy, Hyperparathyroidism, HTN, HLD who presents to the [facility] ED on 07/22/21 with history of onset chest discomfort, midsternal with radiation to BL UE/shoulders and toward her back specifically while she was up and going to the restroom, reported the discomfort is gone of a heaviness with associated lightheadedness, dyspnea without any nausea or emesis and evidence of diaphoresis noted per EMS lasting approximately 20 to 30 minutes with improvement following prompting ED evaluation. She denies having ever had this prior. Patient reported her initial discomfort at 7-8 out of 10 in severity and now upon ED evaluation is completely chest pain-free. Work-up in the ED included T 97.6, heart rate 66, BP 112/53, respiratory rate 12, 97% room air, CBC with WBC 7.4, hemoglobin 0.2, MCV 101.7, platelet 199 without marked shift, BMP with sodium 146, chloride 113, BUN/creatinine 52/1.92, glucose 128, troponin high-sensitivity initial 13, chest with minimal increased markings in the right perihilar region with recommended follow-up, EKG with sinus rhythm with occasional PVC with diffuse nonspecific ST-T wave changes with no acute evidence of ischemia but no comparison. In the ED patient ministered aspirin 324 mg p.o. x1 as well as sublingual nitroglycerin. [facility] Medical History (Updated 07/22/21 @ 16:[address] Vidya Murray MD) Chronic acquired lymphedema Chronic anemia CKD (chronic kidney disease), stage IV HLD (hyperlipidemia) HTN (hypertension) Idiopathic parathyroidism Type 2 diabetes mellitus with diabetic neuropathy Home Medications aspirin 81 mg PO DAILY@0800 06/21/13 [History Last Taken Unknown] atorvastatin 40 mg PO QHS 06/21/13 [History Last Taken Unknown] diltiazem HCl 300 mg PO DAILY 06/21/13 [History Last Taken Unknown] doxazosin [Cardura] 2 mg PO DAILY 06/21/13 [History Last Taken Unknown] ergocalciferol (vitamin D2) [Vitamin D] 1 unit PO QMONTH 06/21/13 [History Last Taken Unknown] furosemide 40 mg PO DAILY 06/21/13 [History Last Taken Unknown] insulin detemir U-100 [Levemir FlexPen] 40 units SUBCUT QHS 06/21/13 [History Last Taken Unknown] insulin lispro [Humalog] 9 unit SQ BID 06/21/13 [History Last Taken Unknown] quinapril 40 mg PO DAILY 06/21/13 [History Last Taken Unknown] Allergy/AdvReac Type Severity Reaction Status Date / Time Penicillins [PCN] Allergy Mild Rash Verified 07/22/21 14:09 Iodinated Contrast Media AdvReac Hives Verified 07/22/21 14:09 Family History (Updated 07/22/21 @ 16:[address] Vidya Murray MD) Mother Thyroid disorder Hypertension Father Hypertension Heart disease Surgical History (Updated 07/22/21 @ 16:[address] Vidya Murray MD) S/P cholecystectomy S/P parathyroidectomy Social History (Updated 07/22/21 @ 16:[address] Vidya Murray MD) household members: none Smoking Status: Never smoker alcohol intake: never substance use type: does not use ROS ROS Narrative Admission Review of Systems: CONSTITUTIONAL: No weight loss, fever, chills, + weakness or fatigue. HEENT: Eyes: No visual loss, blurred vision, double vision or yellow sclerae. Ears, Nose, Throat: No hearing loss, sneezing, congestion, runny nose or sore throat. SKIN: No rash or itching, lesions, wounds. CARDIOVASCULAR: + chest pain, chest pressure or chest discomfort, chronic lymphedema, No palpitations, orthopnea, syncopal events. RESPIRATORY: No shortness of breath, cough or sputum, wheezing, hemoptysis. GASTROINTESTINAL: No anorexia, nausea, vomiting or diarrhea, abdominal pain, melena, BRBPR. GENITOURINARY: No dysuria, frequency, urgency or retention. NEUROLOGICAL: No headache, dizziness, syncope, paralysis, ataxia, numbness or tingling in the extremities, focal weakness, change in bowel or bladder control, seizure. MUSCULOSKELETAL: + muscle, back pain, joint pain or stiffness. HEMATOLOGIC: + anemia, bleeding or bruising. LYMPHATICS: No enlarged nodes. No history of splenectomy. PSYCHIATRIC: No history of depression or anxiety. ENDOCRINOLOGIC: No reports of sweating, cold or heat intolerance. No polyuria or polydipsia. ALLERGIES: No history of asthma, hives, eczema or rhinitis. Vital Signs Vital Signs Vital Signs: 07/22/21 14:05 07/22/21 14:09 07/22/21 14:59 Temperature 97.6 F L Temperature Source Oral Pulse Rate 66 60 Respiratory Rate 12 15 Respiratory Effort Normal Non-Labored Respiratory Pattern Normal Blood Pressure 112/53 L 135/52 H Blood Pressure Mean 72 79 Pulse Ox 97 97 Oxygen Delivery Method Room Air Room Air 07/22/21 15:09 07/22/21 15:13 07/22/21 16:00 Temperature Temperature Source Pulse Rate 60 59 L Respiratory Rate 15 12 Respiratory Effort Respiratory Pattern Blood Pressure 134/78 H 136/63 H Blood Pressure Mean 96 87 Pulse Ox 96 96 98 Oxygen Delivery Method Room Air Room Air Weight Weight: 253 lb 1.451 oz Body Mass Index (BMI) 39.6 Physical Exam Narrative Physical Examination: General: Awake, alert, oriented x 3 and cooperative, seated upright in the ED bed in no apparent distress, chest pain-free. Skin: Normal color, normal turgor, no icterus, no cyanosis, chronic stasis/lymphedematous bilateral lower extremity skin changes. HEENT: AT/NC, EOMI, PERRLA, MMM, no carotid bruits or JVD noted. Lungs: Mildly diminished, greater bases, moderate effort, no rales, ronchi or wheezing. Heart: Regular rate and rhythm; no gallop, rub audible. Abdomen: Soft, obese, NTTP, ND, distant normal BS, difficult to assess HSM secondary to habitus. Extremities: No cyanosis, no clubbing, chronic unchanged bilateral lower extremity lymphedematous skin changes/edema. Neurological: Patient awake, alert, oriented as noted, cognitive function intact; pupils equally reactive to light and accommodation, cranial nerves II- XII grossly normal, moving all 4 extremities, no focal deficits, strength mildly to moderately global decrease secondary to chronic comorbidities and underlying osteoarthritis. Psychiatric: Affect appears improved, denies any chest pain, no acute evidence of depressive or anxiety feelings. Results Lab / Micro Data Result Diagrams: 07/22/21 13:55 07/22/21 13:55 Labs: Laboratory Results - last 24 hr 07/22/21 13:55: WBC 7.4, RBC 3.57 L, Hgb 11.2 L, Hct 36.3 L, MCV 101.7 H, MCH 31.4, MCHC 30.9 L, RDW Std Deviation 47.5 H, RDW Coeff of Fay 12.6, Plt Count 199, MPV 11.4, Immature Gran % (Auto) 0.400, Neut % (Auto) 64.2, Lymph % (Auto) 23.7, [place] % (Auto) 7.7, Eos % (Auto) 3.6, Baso % (Auto) 0.4, Absolute Neuts (auto) 4.8, Absolute Lymphs (auto) 1.76, Nucleated RBC % 0 07/22/21 13:55: Sodium 146 H, Potassium 3.7, Chloride 113 H, Carbon Dioxide 25.0, Anion Gap 8, BUN 52 H, Creatinine 1.92 H, Estim Creat Clear Calc 22.35, Est GFR (MDRD) Af Amer 32 L, Est GFR (MDRD) Non-Af 27 L, BUN/Creatinine Ratio 27.1 H, Glucose 128 H, Calcium 9.1, Troponin I High Sens 13 Radiology Impression Chest X-Ray 07/22/21 14:57 IMPRESSION: Minimal increased markings are seen in the right perihilar region. Follow-up is recommended. Electronically Signed: Balwinder Mcleod MD at 15:26 EDT , Service support , Assessment & Plan Assessment/Plan (1) Chest pain: QUALIFIERS: Chest pain type: unspecified Qualified Code(s): R07.9 - Chest pain, unspecified PLAN: The patient is an 81 y/o F w/ PMHx: Chronic anemia/AOCD, CKD stage IV following w/ Dr. Wells, Diabetes mellitus type II with neuropathy, Hyperparathyroidism, HTN, HLD who presents to the [facility] ED on 07/22/21 with history of onset chest discomfort, midsternal with radiation to BL UE/shoulders and toward her back, heaviness and sensation with lightheadedness and dyspnea prom pting ED evaluation. 1. Chest Pain: ED evaluation with troponin high-sensitivity initial 13, chest with minimal increased markings in the right perihilar region with recommended follow-up, EKG with sinus rhythm with occasional PVC with diffuse nonspecific ST-T wave changes with no acute evidence of ischemia but no comparison. Will admit to PCU, place on a monitored bed to assure no acute myocardial infarction with serial cardiac enzymes and EKGs. If repeat serial cardiac enzymes and EKGs remain unremarkable will pursue a.m. cardiac stress testing however if any concerns will defer and request cardiology involvement. FLP in AM. Magnesium level requested. ASA, NG, morphine. 2. Incidental increased markings right perihilar region: We will need to have follow-up repeat chest x-ray versus CT imaging. 3. Chronic Kidney Disease Stage IV: Admission BUN/Cr 52/1.92, baseline renal function primarily 1.5-1.8, repeat BMP in AM, following with nephrology. 4. Chronic anemia/AOCD: Admission hemoglobin 11.2, baseline appears 9-11, stable, trend. 5. Hypertension: Continue home regimen including indapamide, Lasix, quinapril, Cardura, diltiazem with hold parameters as needed, PRN hydralazine. 6. Hyperlipidemia: Continue home statin regimen. AM FLP. 7. Diabetes mellitus type II with neuropathy: Hold oral home regimen, continue home insulin regimen, most recent hemoglobin A1c noted 05/15/2021 5.9%, maintain on renal/ADA diet until n.p.o. status, accu checks w/ ISS. 8. Hyperparathyroidism: We will continue patient home Zemplar regimen. 9. Chronic BL LE Lymphedema: Continue chronic lasix regimen, DL wraps with elevation. 10. DVT Prophylaxis: SCDs, heparin. 11. CODE status: Patient does not have healthcare power of state's attorney or living will set up. Given her advanced age and underlying comorbidities encouraged her to set these up with her daughters (3). Discussed CODE status at length including difference between FULL code, DNR-CCA and DNR-CC status. Following discussions about the differences in these status, requested Full Code status. Advanced Care Planning Face to Face Time: 16 minutes. Charges/Coding Visit Charges OBSV E&M: 09132 Initial observation care L3 Procedures Hospitalists Procedures: 03612 Advncd Care Plan 30 Min
--- NOTE | 2021-07-22 16:34 | NURSING ---
124 OBS RULA RIDLEY
--- NOTE | 2021-07-22 17:24 | EKG12_ITS ---
Test Reason : CP ADMIT Blood Pressure : / mmHG Vent. Rate : 062 BPM Atrial Rate : 062 BPM P-R Int : 188 ms QRS Dur : 092 ms QT Int : 430 ms P-R-T Axes : 050 014 091 degrees QTc Int : 436 ms Normal sinus rhythm Normal ECG Confirmed by EARLINE CLANCY, ALEX ([id number]), acquisition editor OBED RENTERIA ([id number]) on 07/26/2021 11:15:06 AM Referred By: DR HORTA Confirmed By:ALEX PATTEN MD
[2021-07-22 17:50] LABS: Magnesium 1.6 mg/dL (1.6-2.6)
[2021-07-22] MEDS: hydrALAZINE 20 MG/ML Vial 10 MG IV ×2 (18:16→20:52)
[2021-07-22 18:53] LABS: Troponin-I HS 15 pg/mL (3.0-54.0)
[2021-07-22 20:49] LABS: Troponin-I HS 14 pg/mL (3.0-54.0)
[2021-07-22 21:40] LABS: Bedside Glucose 227 mg/dL (70-110)
[2021-07-22] MEDS: Heparin Injection (Vial) 5,000 UNIT/ML VIAL 5000 UNIT SC (21:47)
[2021-07-22] MEDS: Insulin Lispro 100 UNIT/ML INSULN.PEN SC (21:48)
[2021-07-22] MEDS: Atorvastatin Calcium 40 MG Tablet PO (21:48)
[2021-07-23] VITALS (7 sets, daily range): BP systolic 147–151; BP diastolic 55–64; PULSE 63–74; RESP 16–18; TEMP 36.6–37.1; O2SAT 96–100
[2021-07-23] MEDS: 0.9% Normal Saline 1,000 ML 100 ML IV ×2 (00:01→11:06)
--- NOTE | 2021-07-23 05:55 | EKG12_ITS ---
Test Reason : AM EKG Blood Pressure : / mmHG Vent. Rate : 076 BPM Atrial Rate : 076 BPM P-R Int : 184 ms QRS Dur : 084 ms QT Int : 382 ms P-R-T Axes : 070 024 104 degrees QTc Int : 429 ms Normal sinus rhythm Nonspecific T wave abnormality Abnormal ECG Confirmed by EARLINE CLANCY, ALEX ([id number]), fan mail editor OBED RENTERIA ([id number]) on 07/26/2021 11:15:27 AM Referred By: RULA Confirmed By:ALEX PATTEN MD
[2021-07-23 06:01] LABS: Absolute Neutrophil Count 5.8 X10^3/uL (2.0-7.7); Basophil# 0.03 X10^3/uL; Basophil% 0.4 % (0-1); Eosinophil# 0.27 X10^3/uL; Eosinophils% 3.3 % (0-5); Hematocrit 30.8 % (37-47); Hemoglobin 9.7 g/dL (12.0-15.0); Lymphocyte % 17.1 % (19-41); Mean Corp Hgb Conc 31.5 g/dL (32-36); Mean Corpuscular Hgb 31.6 pg (27.0-32.0); Mean Corpuscular Volume 100.3 fL (81-99); Mean Platelet Vol. 11.3 fl (6.2-12.0); Monocyte# 0.61 X10^3/uL; Monocyte% 7.5 % (0-10); NRBC Flagged by Analyzer 0 % (0-5); Neutrophil # 5.83 X10^3/uL (2.7-7.7); Neutrophil % 71.3 % (47-70); Platelet Count 161 K/mm3 (150-450); RBC Distribution Width SD 47.8 fl (35.1-43.9); Red Blood Count 3.07 M/mm3 (4.2-5.4); White Blood Count 8.2 K/mm3 (4.4-11.0)
[2021-07-23] MEDS: Doxazosin 4 MG Tablet 8 MG PO (06:31)
[2021-07-23] MEDS: dilTIAZem CD 300 MG Capsule PO (06:32)
[2021-07-23] MEDS: Aspirin 81 MG TAB.CHEW PO (06:32)
[2021-07-23] MEDS: Lisinopril 40 MG Tablet PO (06:32)
[2021-07-23] MEDS: Dextrose 50%-Water 25 GM/50 ML DISP.SYRIN IV (06:36)
[2021-07-23 06:38] LABS: ALB/GLOB Ratio 0.9 RATIO (0.9-2.4); AST(SGOT) 13 U/L (15-37); Alanine Aminotransfer ALT/SGPT 19 U/L (13-56); Albumin, Serum 2.5 g/dL (3.2-5.0); Alkaline Phosphatase 71 U/L (45-117); Anion Gap 5 (5-15); BUN 55 mg/dL (7-18); BUN/Creat Ratio 32.2 RATIO (10-20); Calcium,Total 8.8 mg/dL (8.5-10.1); Chloride 116 mmol/L (98-107); Cholesterol 113 mg/dL (200); Creatinine, Serum 1.71 mg/dL (0.55-1.02); EST Glomerular Filtration Rate 30 mL/min (>60); Est Glom Filt Rate - Afr Amer 37 mL/min (>60); Estimated Creatinine Clearance 24.15 ml/min; Globulin 2.8 g/dL (2.2-4.2); Glucose 53 mg/dL (74-106); High Density Lipoprotein 56 mg/dL; Protein, Total 5.3 g/dL (6.4-8.2); Sodium Level 145 mmol/L (136-145); Triglycerides 58 mg/dL; Very Low Density Lipoprotein 12 mg/dL (5-40)
[2021-07-23 06:50] LABS: Bedside Glucose 102 mg/dL (70-110)
--- NOTE | 2021-07-23 06:54 | NURSING ---
blood sugar was 50 this am, Dr Land was notified. 09/19 amp d50 administered as ordered. recheck was 102, 15 minutes after administration.
[2021-07-23 07:21] LABS: Bedside Glucose 49 mg/dL (70-110)
[2021-07-23 07:21] LABS: Bedside Glucose 50 mg/dL (70-110)
--- NOTE | 2021-07-23 09:05 | NURSING ---
Read and reviewed SN documentation. Reviewed plan of care with SN
[2021-07-23 11:10] LABS: Bedside Glucose 86 mg/dL (70-110)
--- NOTE | 2021-07-23 12:58 | STRESSREP_ITS ---
Stress Test Report Date: 07-23-2021 Procedure: Pharmacologic stress nuclear imaging study Indications: Chest pain Consent: Per the patient Procedure: The patient underwent pharmacologic (Regadenoson 0.4mg ) evaluation with a peak heart rate of 100 beats per minute (71%predicted maximal heart rate) and a peak blood pressure of 118/50 mmHg. The baseline ECG demonstrated sinus rhythm; nonspecific ST/T wave abnormality. The peak pharmacologic ECG demonstrated no obvious ECG changes. There was a rare PVC during recovery. There was no complaint of chest discomfort during pharmacologic infusion or recovery. The examination was discontinued secondary to completion of protocol. Impression: 1. Pharmacologic (Regadenoson) evaluation 2. Peak pharmacologic ECG with no obvious ECG changes. 3. There was a rare PVC during recovery. 4. Nuclear images pending Myocardial perfusion imaging study: Technique: The patient was injected with 14.7 millicuries of technetium 99m Cardiolite and subsequently rest SPECT Cardiolite nuclear imaging was obtained in the horizontal long, vertical long, and short axis views. The patient underwent pharmacologic (Regadenoson) evaluation with a peak heart rate of 100 beats per minute (71% percent predicted maximal heart rate) and a peak blood pressure of 118/mmHg. The patient was injected with 44.5 millicuries of technetium 99m Cardiolite and subsequently stress SPECT Cardiolite nuclear imaging was obtained in the horizontal long, vertical long, and short axis views. A gated Cardiolite study at peak stress was obtained. Interpretation: Rest and stress SPECT Cardiolite nuclear imaging status post realignment, normalization, and attenuation correction demonstrate the appearance of body motion during image acquisition and otherwise relative uniform tracer uptake/myocardial perfusion appearing within normal limit. There are no myocardial perfusion deficits appreciated on the stress polar map images. There is end systolic thickening and brightening. The gated Cardiolite study demonstrates myocardial thickening and inward wall motion. The reported LVEF is 67%. Impression: 1. Rest and stress SPECT Cardiolite nuclear imaging demonstrate the appearance of body motion during image acquisition and otherwise relative uniform tracer uptake and myocardial perfusion appearing within normal limits. 2. The gated Cardiolite study reports an LVEF of 67%. This note was generated with ePub Direct software. It may contain incorrect words, spelling, and punctuation that were not noted in checking the note before signing.
--- NOTE | 2021-07-23 13:25 | DS.PCM_ITS ---
Providers Date of Admission: 07/22/21 Primary Care Physician: Dr. Sly Martin MD Reason For Visit: CHEST PAIN Diagnosis Discharge Diagnosis (1) Chest pain: Status: Acute Code(s): R07.9 - Chest pain, unspecified Qualifiers: Chest pain type: unspecified Qualified Code(s): R07.9 - Chest pain, unspecified Medications at Discharge Home Medications Levemir FlexTouch U-100 Insuln 40 units SUBCUT DAILY 06/21/13 aspirin 81 mg PO DAILY@0800 06/21/13 atorvastatin 40 mg PO QHS 06/21/13 ergocalciferol (vitamin D2) [Vitamin D2] 1 unit PO QMONTH 06/21/13 furosemide 40 mg PO DAILY 06/21/13 quinapril 40 mg PO DAILY 06/21/13 diltiazem HCl 300 mg PO DAILY 07/22/21 doxazosin 8 mg PO DAILY 07/22/21 insulin aspart U-100 [Novolog Flexpen U-100 Insulin] 9 unit SUBCUT BREAKFAST 07/22/21 insulin aspart U-100 [Novolog Flexpen U-100 Insulin] 9 unit SUBCUT LUNCH 07/22/21 insulin aspart U-100 [Novolog Flexpen U-100 Insulin] 18 unit SUBCUT DINNER 07/22/21 potassium chloride 10 meq PO DAILY 07/22/21 Hospital Course Operations None Procedures Stress test Summary of Care Provided Minutes Spent on Discharge: 35 Hospital Course: Patient is an 81-year-old female with an extensive past medical history as outlined was admitted through the ED on 07/22/2021 with a complaint of new onset chest discomfort which was midsternal and radiated to her mid back. She had associated lightheadedness and shortness of breath but denied any nausea or vomiting. She hadn't had such symptoms in the past. Initial high- sensitivity troponin was 13. Chest x-ray showed minimal increased markings in the right perihilar region. EKG showed normal sinus rhythm with occasional PVCs. She was admitted and managed for chest pain rule out ACS. She was given aspirin and sublingual nitroglycerin. She had stress test done on 02/04/2021 which was negative for any evidence of ischemia with a reported EF of 67%. She remained stable and was discharged home on 07/23/2021. She is to follow-up with her primary care doctor in 1 to 2 weeks. Patient seen and examined prior to discharge. She had no complaints and felt well. REview of systems was otherwise negative. Labs and vitals reviewed. Home meds reviewed and reconciled. Physical Exam Const alert, oriented x3 and no apparent distress General Appearance: cooperative, comfortable and well kempt Orientation / Consciousness: awake Exam Limitations: no limitations HEENT normocephalic, head/scalp atraumatic, hearing grossly normal bilaterally and moist oral mucous membranes Eyes PERRL, EOMs intact bilaterally and conjunctivae normal Neck no lymphadenopathy Resp normal respiratory effort, no retractions, no use of accessory muscles and clear to auscultation bilaterally Cardio regular rate, regular rhythm, S1 normal heart sound, S2 normal heart sound and no murmurs GI normal to inspection, nondistended, normoactive bowel sounds, soft to palpation, non-tender and non-distended Extremity normal to inspection, full ROM and no clubbing, cyanosis or edema Skin no rashes or lesions noted Neuro oriented x3 and moves all extremities Sensorium / Orientation: awake and alert Psych affect normal Weight / BMI Weight Weight: 247 lb 5.738 oz Body Mass Index (BMI) 41.9 ABG / Lab / Microbiology Data Result Diagrams: 07/23/21 05:40 07/23/21 05:40 Laboratory: Laboratory Results - last 24 hr 07/22/21 13:55: WBC 7.4, RBC 3.57 L, Hgb 11.2 L, Hct 36.3 L, MCV 101.7 H, MCH 31.4, MCHC 30.9 L, RDW Std Deviation 47.5 H, RDW Coeff of Fay 12.6, Plt Count 199, MPV 11.4, Immature Gran % (Auto) 0.400, Neut % (Auto) 64.2, Lymph % (Auto) 23.7, [place] % (Auto) 7.7, Eos % (Auto) 3.6, Baso % (Auto) 0.4, Absolute Neuts (auto) 4.8, Absolute Lymphs (auto) 1.76, Nucleated RBC % 0 07/22/21 13:55: Sodium 146 H, Potassium 3.7, Chloride 113 H, Carbon Dioxide 25.0, Anion Gap 8, BUN 52 H, Creatinine 1.92 H, Estim Creat Clear Calc 22.35, Est GFR (MDRD) Af Amer 32 L, Est GFR (MDRD) Non-Af 27 L, BUN/Creatinine Ratio 27.1 H, Glucose 128 H, Calcium 9.1, Troponin I High Sens 13 07/22/21 13:55: Magnesium 1.6 07/22/21 18:07: Troponin I High Sens 15 07/22/21 20:19: Troponin I High Sens 14 07/22/21 21:38: POC Glucose 227 H 07/23/21 05:40: WBC 8.2, RBC 3.07 L, Hgb 9.7 L, Hct 30.8 L, MCV 100.3 H, MCH 31.6, MCHC 31.5 L, RDW Std Deviation 47.8 H, RDW Coeff of Fay 13.0, Plt Count 161, MPV 11.3, Immature Gran % (Auto) 0.400, Neut % (Auto) 71.3 H, Lymph % (Auto) 17.1 L, [place] % (Auto) 7.5, Eos % (Auto) 3.3, Baso % (Auto) 0.4, Absolute Neuts (auto) 5.8, Absolute Lymphs (auto) 1.40, Nucleated RBC % 0 07/23/21 05:40: Sodium 145, Potassium 4.0, Chloride 116 H, Carbon Dioxide 24.0, Anion Gap 5, BUN 55 H, Creatinine 1.71 H, Estim Creat Clear Calc 24.15, Est GFR (MDRD) Af Amer 37 L, Est GFR (MDRD) Non-Af 30 L, BUN/Creatinine Ratio 32.2 H, Glucose 53 L, Calcium 8.8, Total Bilirubin 0.40, AST 13 L, ALT 19, Alkaline Phosphatase 71, Total Protein 5.3 L, Albumin 2.5 L, Globulin 2.8, Albumin/Globulin Ratio 0.9, Triglycerides 58, Cholesterol 113, LDL Cholesterol 45, VLDL Cholesterol 12, HDL Cholesterol 56 07/23/21 06:19: POC Glucose 49 L 07/23/21 06:24: POC Glucose 50 L 07/23/21 06:46: POC Glucose 102 07/23/21 11:04: POC Glucose 86 Radiography Diagnostic Testing: Radiology Impression Chest X-Ray 07/22/21 14:57 IMPRESSION: Minimal increased markings are seen in the right perihilar region. Follow-up is recommended. Electronically Signed: Balwinder Mcleod MD at 15:26 EDT , Service support , D/C Instructions Discharge Diet: Low fat / Low cholesterol Discharge Activity: Return to Normal Activity Weight Bearing Status: Weight bearing as tolerated Call your doctor if you observe: Fever of 101 or Higher, Shortness of breath, Dizziness, Swelling in the ankles, Chest pain and Increased palpitations (irregular heartbeat) Meaningful Use Info Meaningful Use Diagnoses (Choose all that apply): None applicable Discharge Plan Admission Admit Date/Time: 07/22/21 16:24 Primary Reason for Your Visit: chest pain Attending Provider: Kelley Coronado Primary Care Provider: Sly Martin Instructions Patient Instructions: ED Chest Pain, Noncardiac Discharge Orders/Prescriptions Prescriptions: Continued ergocalciferol (vitamin D2) [Vitamin D2] 50,000 UNIT capsule 1 unit PO QMONTH RF: 0 furosemide 40 MG tablet 40 mg PO DAILY RF: 0 atorvastatin 40 MG tablet 40 mg PO QHS RF: 0 quinapril 40 mg Tablet 40 mg PO DAILY RF: 0 aspirin 81 MG tablet,chewable 81 mg PO DAILY@0800 RF: 0 Levemir FlexTouch U-100 Insuln 100 UNITS/ML insulin pen 40 units subcut DAILY RF: 0 potassium chloride 10 mEq tablet extended release 10 meq PO DAILY RF: 0 doxazosin 8 mg tablet 8 mg PO DAILY RF: 0 diltiazem HCl 300 mg capsule,extended release 24hr 300 mg PO DAILY RF: 0 insulin aspart U-100 [Novolog Flexpen U-100 Insulin] 100 unit/mL (3 mL) insulin pen 9 unit SUBCUT BREAKFAST RF: 0 insulin aspart U-100 [Novolog Flexpen U-100 Insulin] 100 unit/mL (3 mL) insulin pen 9 unit SUBCUT LUNCH RF: 0 insulin aspart U-100 [Novolog Flexpen U-100 Insulin] 100 unit/mL (3 mL) insulin pen 18 unit SUBCUT DINNER RF: 0 Referrals / Follow Up: Sly Martin MD [Primary Care Provider] - Within 2 Weeks Disposition Disposition (needs filled in before D/C Order can be placed): Home, Self Care Charges/Coding Visit Charges OBSV E&M: 50096 Observation care discharge
--- NOTE | 2021-07-23 14:16 | PHA.DC.MR ---
Pharmacy Service has performed discharge medication reconciliation for this patient. The patient's discharge medication list was reviewed for discrepancies and discrepancies were resolved. Home Medications Levemir FlexTouch U-100 Insuln 40 units SUBCUT DAILY 06/21/13 aspirin 81 mg PO DAILY@0800 06/21/13 atorvastatin 40 mg PO QHS 06/21/13 ergocalciferol (vitamin D2) [Vitamin D2] 1 unit PO QMONTH 06/21/13 furosemide 40 mg PO DAILY 06/21/13 quinapril 40 mg PO DAILY 06/21/13 diltiazem HCl 300 mg PO DAILY 07/22/21 doxazosin 8 mg PO DAILY 07/22/21 insulin aspart U-100 [Novolog Flexpen U-100 Insulin] 9 unit SUBCUT BREAKFAST 07/22/21 insulin aspart U-100 [Novolog Flexpen U-100 Insulin] 9 unit SUBCUT LUNCH 07/22/21 insulin aspart U-100 [Novolog Flexpen U-100 Insulin] 18 unit SUBCUT DINNER 07/22/21 potassium chloride 10 meq PO DAILY 07/22/21
[2021-07-23] MEDS: Potassium Chloride Oral Tablet 10 MEQ PO (14:25)
[2021-07-23] MEDS: Furosemide 40 MG Tablet PO (14:25)
--- NOTE | 2021-07-23 14:51 | NURSING ---
Read and reviewed SN documentation. Plan of care reviewed with SN
== END 2021-07-23 13:41 | disposition home or self-care (01) ==
LOC: ED 16:26 → PCU 16:55
PROVIDERS: Admitting Provider Family Medicine; Emergency Provider Emergency Medicine; PCP Family Medicine; Visit Provider Student in an Organized Health Care Education/Training Program
DX: R07.89 Other chest pain (principal); I12.9 Hypertensive chronic kidney disease with stage 1 through stage 4 chronic kidney disease, or unspecified chronic kidney disease; D63.8 Anemia in other chronic diseases classified elsewhere; Z23 Encounter for immunization; E11.22 Type 2 diabetes mellitus with diabetic chronic kidney disease; E11.40 Type 2 diabetes mellitus with diabetic neuropathy, unspecified; E78.5 Hyperlipidemia, unspecified; E21.3 Hyperparathyroidism, unspecified; N18.4 Chronic kidney disease, stage 4 (severe); I89.0 Lymphedema, not elsewhere classified; Z79.4 Long term (current) use of insulin; Z79.82 Long term (current) use of aspirin; Z79.899 Other long term (current) drug therapy
CPT/HCPCS: 36415; 71045; 78452; 80048; 80053; 80061; 82962; 83735; 84484; 85025; 93005; 93017; 96361; 96372; 96374; 96375; 96376; 99218; 99251; 99285; A9500; G0008; J7030; 90686; A4216; G0378; G0463; J2785

== ENCOUNTER → 2021-08-04 11:20 | Outpatient (CLI) | payer MEDICARE, OTHER, SELFPAY ==
[2021-08-04 11:39] LABS: Absolute Lymphocyte Count 1.38 X10^3/uL (0.83-4.51); Absolute Neutrophil Count 4.2 X10^3/uL (2.0-7.7); Basophil# 0.03 X10^3/uL; Basophil% 0.5 % (0-1); Eosinophil# 0.23 X10^3/uL; Eosinophils% 3.6 % (0-5); Hematocrit 33.7 % (37-47); Hemoglobin 10.6 g/dL (12.0-15.0); Lymphocyte # 1.38 X10^3/ul (0.83-4.51); Lymphocyte % 21.5 % (19-41); Mean Corp Hgb Conc 31.5 g/dL (32-36); Mean Corpuscular Hgb 31.6 pg (27.0-32.0); Mean Corpuscular Volume 100.6 fL (81-99); Mean Platelet Vol. 10.4 fl (6.2-12.0); Monocyte# 0.52 X10^3/uL; Monocyte% 8.1 % (0-10); NRBC Flagged by Analyzer 0 % (0-5); Neutrophil # 4.23 X10^3/uL (2.7-7.7); Neutrophil % 65.8 % (47-70); Platelet Count 206 K/mm3 (150-450); RBC Distribution Width CV 12.9 % (11.6-14.6); RBC Distribution Width SD 47.4 fl (35.1-43.9); Red Blood Count 3.35 M/mm3 (4.2-5.4); White Blood Count 6.4 K/mm3 (4.4-11.0)
[2021-08-04 11:51] LABS: Albumin, Serum 2.9 g/dL (3.2-5.0); BUN 47 mg/dL (7-18); BUN/Creat Ratio 28.1 RATIO (10-20); Calcium,Total 8.6 mg/dL (8.5-10.1); Chloride 114 mmol/L (98-107); Creatinine, Serum 1.67 mg/dL (0.55-1.02); EST Glomerular Filtration Rate 31 mL/min (>60); Est Glom Filt Rate - Afr Amer 38 mL/min (>60); Glucose 76 mg/dL (74-106); Phosphorus 2.5 mg/dL (2.5-4.9); Potassium 3.5 mmol/L (3.5-5.1); Sodium Level 144 mmol/L (136-145)
== END ==
PROVIDERS: PCP Family Medicine; Referring Provider Internal Medicine Nephrology; Visit Provider Internal Medicine Nephrology
DX: N18.4 Chronic kidney disease, stage 4 (severe) (principal); D63.1 Anemia in chronic kidney disease
CPT/HCPCS: 36415; 80069; 85025

== ENCOUNTER → 2021-08-18 11:23 | Outpatient (CLI) | payer MEDICARE, OTHER, SELFPAY ==
[2021-08-18 11:55] LABS: Absolute Lymphocyte Count 1.49 X10^3/uL (0.83-4.51); Absolute Neutrophil Count 5.6 X10^3/uL (2.0-7.7); Basophil# 0.04 X10^3/uL; Basophil% 0.5 % (0-1); Eosinophil# 0.23 X10^3/uL; Eosinophils% 2.8 % (0-5); Hemoglobin 9.7 g/dL (12.0-15.0); Lymphocyte # 1.49 X10^3/ul (0.83-4.51); Lymphocyte % 18.4 % (19-41); Mean Corp Hgb Conc 30.3 g/dL (32-36); Mean Corpuscular Hgb 30.8 pg (27.0-32.0); Mean Corpuscular Volume 101.6 fL (81-99); Mean Platelet Vol. 10.4 fl (6.2-12.0); Monocyte# 0.68 X10^3/uL; Monocyte% 8.4 % (0-10); NRBC Flagged by Analyzer 0 % (0-5); Neutrophil # 5.62 X10^3/uL (2.7-7.7); Neutrophil % 69.3 % (47-70); Platelet Count 244 K/mm3 (150-450); RBC Distribution Width CV 13.3 % (11.6-14.6); RBC Distribution Width SD 49.4 fl (35.1-43.9); Red Blood Count 3.15 M/mm3 (4.2-5.4); White Blood Count 8.1 K/mm3 (4.4-11.0)
[2021-08-18 12:11] LABS: Albumin, Serum 2.9 g/dL (3.2-5.0); BUN 55 mg/dL (7-18); BUN/Creat Ratio 29.6 RATIO (10-20); Calcium,Total 8.9 mg/dL (8.5-10.1); Chloride 112 mmol/L (98-107); Creatinine, Serum 1.86 mg/dL (0.55-1.02); EST Glomerular Filtration Rate 28 mL/min (>60); Est Glom Filt Rate - Afr Amer 33 mL/min (>60); Ferritin 110 ng/mL (8-252); Glucose 114 mg/dL (74-106); Iron 54 ug/dL (50-170); Iron Binding Capacity,Total 239 ug/dL (250-450); PERCENT IRON SATURATION 22.6 % (15.0-55.0); Phosphorus 3.2 mg/dL (2.5-4.9); Sodium Level 145 mmol/L (136-145)
[2021-08-18 12:15] VITALS: BP 128/58; PULSE 62; RESP 16; TEMP 35.8; O2SAT 98
[2021-08-18] MEDS: Epoetin Alfa epbx 10,000 UNITS/ML 10000 UNIT SC (12:15)
[2021-08-18 19:48] LABS: Xtra Tube EP Lab EXTRA TUBE
== END ==
PROVIDERS: PCP Family Medicine; Referring Provider Internal Medicine Nephrology; Visit Provider Internal Medicine Nephrology
DX: N18.4 Chronic kidney disease, stage 4 (severe) (principal); D63.1 Anemia in chronic kidney disease
CPT/HCPCS: 36415; 80069; 82728; 83540; 83550; 85025; 96372; Q5106

== ENCOUNTER → 2021-09-02 11:21 | Outpatient (CLI) | payer MEDICARE, OTHER, SELFPAY ==
[2021-09-02 11:44] LABS: Absolute Lymphocyte Count 1.83 X10^3/uL (0.83-4.51); Absolute Neutrophil Count 4.9 X10^3/uL (2.0-7.7); Basophil# 0.05 X10^3/uL; Basophil% 0.6 % (0-1); Eosinophil# 0.35 X10^3/uL; Eosinophils% 4.5 % (0-5); Hematocrit 32.6 % (37-47); Lymphocyte # 1.83 X10^3/ul (0.83-4.51); Lymphocyte % 23.4 % (19-41); Mean Corp Hgb Conc 30.7 g/dL (32-36); Mean Corpuscular Hgb 31.6 pg (27.0-32.0); Mean Corpuscular Volume 103.2 fL (81-99); Mean Platelet Vol. 10.4 fl (6.2-12.0); Monocyte# 0.69 X10^3/uL; Monocyte% 8.8 % (0-10); NRBC Flagged by Analyzer 0 % (0-5); Neutrophil # 4.88 X10^3/uL (2.7-7.7); Neutrophil % 62.4 % (47-70); Platelet Count 241 K/mm3 (150-450); RBC Distribution Width CV 14.2 % (11.6-14.6); RBC Distribution Width SD 54.3 fl (35.1-43.9); Red Blood Count 3.16 M/mm3 (4.2-5.4); White Blood Count 7.8 K/mm3 (4.4-11.0)
[2021-09-02 11:52] LABS: BUN 57 mg/dL (7-18); BUN/Creat Ratio 29.7 RATIO (10-20); Calcium,Total 8.8 mg/dL (8.5-10.1); Chloride 113 mmol/L (98-107); Creatinine, Serum 1.92 mg/dL (0.55-1.02); EST Glomerular Filtration Rate 27 mL/min (>60); Est Glom Filt Rate - Afr Amer 32 mL/min (>60); Glucose 85 mg/dL (74-106); Phosphorus 2.8 mg/dL (2.5-4.9); Potassium 3.5 mmol/L (3.5-5.1); Sodium Level 146 mmol/L (136-145)
[2021-09-02] MEDS: Epoetin Alfa epbx 10,000 UNITS/ML 10000 UNIT SC (12:15)
== END ==
PROVIDERS: PCP Family Medicine; Referring Provider Internal Medicine Nephrology; Visit Provider Internal Medicine Nephrology
DX: N18.4 Chronic kidney disease, stage 4 (severe) (principal); D63.1 Anemia in chronic kidney disease
CPT/HCPCS: 36415; 80069; 85025; 96372; Q5106

== ENCOUNTER 2021-09-22 11:22 | Outpatient (CLI) | payer MEDICARE, OTHER, SELFPAY ==
[2021-09-22 11:43] LABS: Absolute Lymphocyte Count 1.93 X10^3/uL (0.83-4.51); Basophil# 0.05 X10^3/uL; Basophil% 0.6 % (0-1); Eosinophil# 0.31 X10^3/uL; Eosinophils% 3.9 % (0-5); Hematocrit 32.3 % (37-47); Hemoglobin 10.3 g/dL (12.0-15.0); Lymphocyte # 1.93 X10^3/ul (0.83-4.51); Lymphocyte % 24.2 % (19-41); Mean Corp Hgb Conc 31.9 g/dL (32-36); Mean Corpuscular Hgb 32.7 pg (27.0-32.0); Mean Corpuscular Volume 102.5 fL (81-99); Mean Platelet Vol. 10.3 fl (6.2-12.0); Monocyte% 8.8 % (0-10); NRBC Flagged by Analyzer 0 % (0-5); Neutrophil # 4.95 X10^3/uL (2.7-7.7); Neutrophil % 62.1 % (47-70); Platelet Count 249 K/mm3 (150-450); RBC Distribution Width CV 14.3 % (11.6-14.6); RBC Distribution Width SD 54.3 fl (35.1-43.9); Red Blood Count 3.15 M/mm3 (4.2-5.4)
[2021-09-22 11:57] LABS: Albumin, Serum 3.2 g/dL (3.2-5.0); BUN 51 mg/dL (7-18); BUN/Creat Ratio 28.3 RATIO (10-20); Chloride 112 mmol/L (98-107); EST Glomerular Filtration Rate 29 mL/min (>60); Est Glom Filt Rate - Afr Amer 35 mL/min (>60); Glucose 59 mg/dL (74-106); Phosphorus 2.8 mg/dL (2.5-4.9); Potassium 3.5 mmol/L (3.5-5.1); Sodium Level 146 mmol/L (136-145)
[2021-09-22 12:13] VITALS: BP 115/46; BMI 41.6
[2021-09-22] MEDS: Epoetin Alfa epbx 10,000 UNITS/ML 10000 UNIT SC (12:15)
== END 2021-09-22 23:59 | disposition short-term general hospital (02) ==
LOC: MEDOUTP 11:23
PROVIDERS: PCP Family Medicine; Referring Provider Internal Medicine Nephrology; Visit Provider Internal Medicine Nephrology
DX: N18.4 Chronic kidney disease, stage 4 (severe) (principal); D63.1 Anemia in chronic kidney disease
CPT/HCPCS: 36415; 80069; 85025; 96372; Q5106

== ENCOUNTER 2021-10-06 11:22 | Outpatient (CLI) | payer MEDICARE, OTHER, SELFPAY ==
[2021-10-06 11:36] LABS: Absolute Lymphocyte Count 1.96 X10^3/uL (0.83-4.51); Absolute Neutrophil Count 4.8 X10^3/uL (2.0-7.7); Basophil# 0.05 X10^3/uL; Basophil% 0.6 % (0-1); Eosinophil# 0.32 X10^3/uL; Hematocrit 33.8 % (37-47); Hemoglobin 10.2 g/dL (12.0-15.0); Lymphocyte # 1.96 X10^3/ul (0.83-4.51); Lymphocyte % 24.8 % (19-41); Mean Corp Hgb Conc 30.2 g/dL (32-36); Mean Corpuscular Hgb 31.2 pg (27.0-32.0); Mean Corpuscular Volume 103.4 fL (81-99); Mean Platelet Vol. 10.4 fl (6.2-12.0); Monocyte% 8.8 % (0-10); NRBC Flagged by Analyzer 0 % (0-5); Neutrophil # 4.84 X10^3/uL (2.7-7.7); Neutrophil % 61.3 % (47-70); Platelet Count 248 K/mm3 (150-450); RBC Distribution Width CV 14.2 % (11.6-14.6); RBC Distribution Width SD 54.2 fl (35.1-43.9); Red Blood Count 3.27 M/mm3 (4.2-5.4); White Blood Count 7.9 K/mm3 (4.4-11.0)
[2021-10-06 11:48] LABS: Albumin, Serum 3.2 g/dL (3.2-5.0); BUN 51 mg/dL (7-18); BUN/Creat Ratio 29.1 RATIO (10-20); Calcium,Total 9.1 mg/dL (8.5-10.1); Chloride 116 mmol/L (98-107); Creatinine, Serum 1.75 mg/dL (0.55-1.02); EST Glomerular Filtration Rate 30 mL/min (>60); Est Glom Filt Rate - Afr Amer 36 mL/min (>60); Glucose 81 mg/dL (74-106); Phosphorus 2.7 mg/dL (2.5-4.9); Potassium 3.6 mmol/L (3.5-5.1); Sodium Level 147 mmol/L (136-145)
[2021-10-06 12:03] VITALS: BP 139/58; PULSE 63; RESP 16; TEMP 36.1; O2SAT 96; BMI 40.8
[2021-10-06] MEDS: Epoetin Alfa epbx 10,000 UNITS/ML 10000 UNIT SC (12:15)
== END 2021-10-06 23:59 | disposition short-term general hospital (02) ==
LOC: MEDOUTP 11:22
PROVIDERS: PCP Family Medicine; Referring Provider Internal Medicine Nephrology; Visit Provider Internal Medicine Nephrology
DX: N18.4 Chronic kidney disease, stage 4 (severe) (principal); D63.1 Anemia in chronic kidney disease
CPT/HCPCS: 36415; 80069; 85025; 96372; Q5106

== ENCOUNTER 2021-10-27 13:56 | Outpatient (CLI) | payer MEDICARE, OTHER, SELFPAY ==
[2021-10-27 14:24] LABS: Absolute Lymphocyte Count 1.42 X10^3/uL (0.83-4.51); Absolute Neutrophil Count 5.4 X10^3/uL (2.0-7.7); Basophil# 0.04 X10^3/uL; Basophil% 0.5 % (0-1); Eosinophil# 0.26 X10^3/uL; Eosinophils% 3.4 % (0-5); Hematocrit 32.9 % (37-47); Hemoglobin 10.3 g/dL (12.0-15.0); Lymphocyte # 1.42 X10^3/ul (0.83-4.51); Lymphocyte % 18.4 % (19-41); Mean Corp Hgb Conc 31.3 g/dL (32-36); Mean Corpuscular Hgb 32.5 pg (27.0-32.0); Mean Corpuscular Volume 103.8 fL (81-99); Mean Platelet Vol. 10.7 fl (6.2-12.0); Monocyte# 0.56 X10^3/uL; Monocyte% 7.2 % (0-10); NRBC Flagged by Analyzer 0 % (0-5); Neutrophil # 5.41 X10^3/uL (2.7-7.7); Platelet Count 234 K/mm3 (150-450); RBC Distribution Width CV 13.4 % (11.6-14.6); RBC Distribution Width SD 51.3 fl (35.1-43.9); Red Blood Count 3.17 M/mm3 (4.2-5.4); White Blood Count 7.7 K/mm3 (4.4-11.0)
[2021-10-27 14:36] VITALS: BP 150/57; PULSE 58; RESP 16; TEMP 36.1; O2SAT 98
[2021-10-27 14:40] LABS: Albumin, Serum 3.1 g/dL (3.2-5.0); BUN 41 mg/dL (7-18); BUN/Creat Ratio 21.8 RATIO (10-20); Calcium,Total 8.9 mg/dL (8.5-10.1); Chloride 113 mmol/L (98-107); Creatinine, Serum 1.88 mg/dL (0.55-1.02); EST Glomerular Filtration Rate 27 mL/min (>60); Est Glom Filt Rate - Afr Amer 33 mL/min (>60); Glucose 85 mg/dL (74-106); Phosphorus 3.2 mg/dL (2.5-4.9); Potassium 3.6 mmol/L (3.5-5.1); Sodium Level 144 mmol/L (136-145)
[2021-10-27] MEDS: Epoetin Alfa epbx 10,000 UNITS/ML 10000 UNIT SC (14:56)
== END 2021-10-27 23:59 | disposition home or self-care (01) ==
LOC: MEDOUTP 13:57
PROVIDERS: PCP Family Medicine; Referring Provider Internal Medicine Nephrology; Visit Provider Internal Medicine Nephrology
DX: N18.4 Chronic kidney disease, stage 4 (severe) (principal); D63.1 Anemia in chronic kidney disease
CPT/HCPCS: 36415; 80069; 85025; 96372; Q5106

== ENCOUNTER 2021-11-10 11:24 | Outpatient (CLI) | payer MEDICARE, OTHER, SELFPAY ==
[2021-11-10 11:50] LABS: Absolute Lymphocyte Count 1.85 X10^3/uL (0.83-4.51); Absolute Neutrophil Count 4.2 X10^3/uL (2.0-7.7); Basophil# 0.03 X10^3/uL; Basophil% 0.4 % (0-1); Eosinophil# 0.29 X10^3/uL; Eosinophils% 4.1 % (0-5); Hemoglobin 10.5 g/dL (12.0-15.0); Lymphocyte # 1.85 X10^3/ul (0.83-4.51); Lymphocyte % 26.1 % (19-41); Mean Corp Hgb Conc 30.9 g/dL (32-36); Mean Corpuscular Hgb 32.5 pg (27.0-32.0); Mean Corpuscular Volume 105.3 fL (81-99); Mean Platelet Vol. 10.9 fl (6.2-12.0); Monocyte# 0.73 X10^3/uL; Monocyte% 10.3 % (0-10); NRBC Flagged by Analyzer 0 % (0-5); Neutrophil # 4.17 X10^3/uL (2.7-7.7); Neutrophil % 58.7 % (47-70); Platelet Count 214 K/mm3 (150-450); RBC Distribution Width CV 13.5 % (11.6-14.6); RBC Distribution Width SD 52.5 fl (35.1-43.9); Red Blood Count 3.23 M/mm3 (4.2-5.4); White Blood Count 7.1 K/mm3 (4.4-11.0)
[2021-11-10 12:00] VITALS: BP 135/54; PULSE 78; RESP 16; TEMP 36.6; O2SAT 98
[2021-11-10 12:03] LABS: Albumin, Serum 3.2 g/dL (3.2-5.0); BUN 50 mg/dL (7-18); BUN/Creat Ratio 28.2 RATIO (10-20); Chloride 115 mmol/L (98-107); Creatinine, Serum 1.77 mg/dL (0.55-1.02); EST Glomerular Filtration Rate 29 mL/min (>60); Est Glom Filt Rate - Afr Amer 35 mL/min (>60); Glucose 55 mg/dL (74-106); Phosphorus 2.7 mg/dL (2.5-4.9); Potassium 3.5 mmol/L (3.5-5.1); Sodium Level 146 mmol/L (136-145)
[2021-11-10] MEDS: Epoetin Alfa epbx 10,000 UNITS/ML 10000 UNIT SC (12:16)
== END 2021-11-10 23:59 | disposition home or self-care (01) ==
LOC: MEDOUTP 11:24
PROVIDERS: PCP Family Medicine; Referring Provider Internal Medicine Nephrology; Visit Provider Internal Medicine Nephrology
DX: N18.4 Chronic kidney disease, stage 4 (severe) (principal); D63.1 Anemia in chronic kidney disease
CPT/HCPCS: 36415; 80069; 85025; 96372; Q5106

== ENCOUNTER 2021-12-08 11:19 | Outpatient (CLI) | payer MEDICARE, OTHER, SELFPAY ==
[2021-12-08 11:34] LABS: Hematocrit 33.6 % (37-47); Hemoglobin 10.6 g/dL (12.0-15.0); Mean Corp Hgb Conc 31.5 g/dL (32-36); Mean Corpuscular Hgb 32.7 pg (27.0-32.0); Mean Corpuscular Volume 103.7 fL (81-99); Mean Platelet Vol. 10.4 fl (6.2-12.0); Platelet Count 254 K/mm3 (150-450); RBC Distribution Width CV 13.3 % (11.6-14.6); Red Blood Count 3.24 M/mm3 (4.2-5.4); White Blood Count 7.7 K/mm3 (4.4-11.0)
[2021-12-08 11:54] LABS: Albumin, Serum 3.3 g/dL (3.2-5.0); BUN 44 mg/dL (7-18); BUN/Creat Ratio 24.2 RATIO (10-20); Calcium,Total 9.2 mg/dL (8.5-10.1); Chloride 112 mmol/L (98-107); Creatinine, Serum 1.82 mg/dL (0.55-1.02); EST Glomerular Filtration Rate 28 mL/min (>60); Est Glom Filt Rate - Afr Amer 34 mL/min (>60); Ferritin 85 ng/mL (8-252); Glucose 74 mg/dL (74-106); Iron 45 ug/dL (50-170); Iron Binding Capacity,Total 245 ug/dL (250-450); PERCENT IRON SATURATION 18.4 % (15.0-55.0); Phosphorus 3.1 mg/dL (2.5-4.9); Potassium 3.4 mmol/L (3.5-5.1); Sodium Level 147 mmol/L (136-145)
[2021-12-08 11:55] VITALS: BP 117/40; PULSE 62; RESP 16; TEMP 35.8; O2SAT 99; BMI 40.8
[2021-12-08] MEDS: Epoetin Alfa epbx 10,000 UNITS/ML 10000 UNIT SC (12:36)
[2021-12-08 19:31] LABS: Xtra Tube EP Lab EXTRA TUBE
== END 2021-12-08 23:59 | disposition home or self-care (01) ==
LOC: MEDOUTP 11:19
PROVIDERS: PCP Family Medicine; Referring Provider Internal Medicine Nephrology; Visit Provider Internal Medicine Nephrology
DX: N18.4 Chronic kidney disease, stage 4 (severe) (principal); D63.1 Anemia in chronic kidney disease
CPT/HCPCS: 36415; 80069; 82728; 83540; 83550; 85027; 96372; Q5106

== ENCOUNTER 2021-12-22 11:17 | Outpatient (CLI) | payer MEDICARE, OTHER, SELFPAY ==
[2021-12-22 11:33] LABS: Absolute Lymphocyte Count 1.78 X10^3/uL (0.83-4.51); Absolute Neutrophil Count 4.4 X10^3/uL (2.0-7.7); Basophil# 0.04 X10^3/uL; Basophil% 0.6 % (0-1); Eosinophil# 0.32 X10^3/uL; Eosinophils% 4.4 % (0-5); Hematocrit 32.5 % (37-47); Hemoglobin 9.9 g/dL (12.0-15.0); Lymphocyte # 1.78 X10^3/ul (0.83-4.51); Lymphocyte % 24.7 % (19-41); Mean Corp Hgb Conc 30.5 g/dL (32-36); Mean Corpuscular Hgb 31.6 pg (27.0-32.0); Mean Corpuscular Volume 103.8 fL (81-99); Mean Platelet Vol. 10.6 fl (6.2-12.0); Monocyte# 0.66 X10^3/uL; Monocyte% 9.1 % (0-10); NRBC Flagged by Analyzer 0 % (0-5); Neutrophil % 60.9 % (47-70); Platelet Count 246 K/mm3 (150-450); RBC Distribution Width SD 53.9 fl (35.1-43.9); Red Blood Count 3.13 M/mm3 (4.2-5.4); White Blood Count 7.2 K/mm3 (4.4-11.0)
[2021-12-22 11:44] LABS: Albumin, Serum 3.3 g/dL (3.2-5.0); BUN 48 mg/dL (7-18); BUN/Creat Ratio 26.7 RATIO (10-20); Calcium,Total 9.2 mg/dL (8.5-10.1); Chloride 117 mmol/L (98-107); EST Glomerular Filtration Rate 29 mL/min (>60); Est Glom Filt Rate - Afr Amer 35 mL/min (>60); Glucose 57 mg/dL (74-106); Phosphorus 2.9 mg/dL (2.5-4.9); Potassium 3.5 mmol/L (3.5-5.1); Sodium Level 145 mmol/L (136-145)
[2021-12-22 12:00] VITALS: BP 116/55; PULSE 58; RESP 16; TEMP 35.9; O2SAT 97; BMI 40.8
[2021-12-22] MEDS: Epoetin Alfa epbx 10,000 UNITS/ML 10000 UNIT SC (12:26)
== END 2021-12-22 23:59 | disposition home or self-care (01) ==
LOC: MEDOUTP 11:18
PROVIDERS: PCP Family Medicine; Referring Provider Internal Medicine Nephrology; Visit Provider Internal Medicine Nephrology
DX: N18.4 Chronic kidney disease, stage 4 (severe) (principal); D63.1 Anemia in chronic kidney disease
CPT/HCPCS: 36415; 80069; 85025; 96372; Q5106

== ENCOUNTER 2022-01-05 11:17 | Outpatient (CLI) | payer MEDICARE, OTHER, SELFPAY ==
[2022-01-05 11:39] LABS: Absolute Lymphocyte Count 1.37 X10^3/uL (0.83-4.51); Absolute Neutrophil Count 8.4 X10^3/uL (2.0-7.7); Basophil# 0.01 X10^3/uL; Basophil% 0.1 % (0-1); Eosinophil# 0.11 X10^3/uL; Hematocrit 34.3 % (37-47); Hemoglobin 10.6 g/dL (12.0-15.0); Lymphocyte # 1.37 X10^3/ul (0.83-4.51); Lymphocyte % 12.6 % (19-41); Mean Corp Hgb Conc 30.9 g/dL (32-36); Mean Corpuscular Hgb 31.4 pg (27.0-32.0); Mean Corpuscular Volume 101.5 fL (81-99); Mean Platelet Vol. 10.6 fl (6.2-12.0); Monocyte# 0.91 X10^3/uL; Monocyte% 8.4 % (0-10); NRBC Flagged by Analyzer 0 % (0-5); Neutrophil # 8.39 X10^3/uL (2.7-7.7); Platelet Count 252 K/mm3 (150-450); RBC Distribution Width CV 14.1 % (11.6-14.6); Red Blood Count 3.38 M/mm3 (4.2-5.4); White Blood Count 10.9 K/mm3 (4.4-11.0)
[2022-01-05 11:52] LABS: Albumin, Serum 3.4 g/dL (3.2-5.0); BUN 59 mg/dL (7-18); BUN/Creat Ratio 34.5 RATIO (10-20); Calcium,Total 9.4 mg/dL (8.5-10.1); Chloride 111 mmol/L (98-107); Creatinine, Serum 1.71 mg/dL (0.55-1.02); EST Glomerular Filtration Rate 30 mL/min (>60); Est Glom Filt Rate - Afr Amer 37 mL/min (>60); Glucose 145 mg/dL (74-106); Phosphorus 2.5 mg/dL (2.5-4.9); Potassium 4.1 mmol/L (3.5-5.1); Sodium Level 143 mmol/L (136-145)
[2022-01-05 11:53] VITALS: BP 140/48; PULSE 104; RESP 16; O2SAT 98
[2022-01-05] MEDS: Epoetin Alfa epbx 10,000 UNITS/ML 10000 UNIT SC (12:31)
== END 2022-01-05 23:59 | disposition home or self-care (01) ==
LOC: MEDOUTP 11:17
PROVIDERS: PCP Family Medicine; Referring Provider Internal Medicine Nephrology; Visit Provider Internal Medicine Nephrology
DX: N18.4 Chronic kidney disease, stage 4 (severe) (principal); D63.1 Anemia in chronic kidney disease
CPT/HCPCS: 36415; 80069; 85025; 96372; Q5106

== ENCOUNTER → 2022-01-19 | Outpatient (CLI) | payer MEDICARE, OTHER, SELFPAY ==
[2022-01-19 11:41] LABS: Absolute Lymphocyte Count 1.59 X10^3/uL (0.83-4.51); Basophil# 0.04 X10^3/uL; Basophil% 0.5 % (0-1); Eosinophils% 2.3 % (0-5); Hemoglobin 10.9 g/dL (12.0-15.0); Lymphocyte # 1.59 X10^3/ul (0.83-4.51); Lymphocyte % 18.6 % (19-41); Mean Corp Hgb Conc 31.1 g/dL (32-36); Mean Corpuscular Volume 102.6 fL (81-99); Mean Platelet Vol. 11.3 fl (6.2-12.0); Monocyte# 0.69 X10^3/uL; Monocyte% 8.1 % (0-10); NRBC Flagged by Analyzer 0 % (0-5); Neutrophil % 70.1 % (47-70); Platelet Count 219 K/mm3 (150-450); RBC Distribution Width CV 13.8 % (11.6-14.6); RBC Distribution Width SD 52.7 fl (35.1-43.9); Red Blood Count 3.41 M/mm3 (4.2-5.4); White Blood Count 8.6 K/mm3 (4.4-11.0)
[2022-01-19 11:45] VITALS: BP 131/55; PULSE 69; RESP 16; TEMP 36.3; O2SAT 100
[2022-01-19 11:59] LABS: Albumin, Serum 3.2 g/dL (3.2-5.0); BUN 53 mg/dL (7-18); BUN/Creat Ratio 30.3 RATIO (10-20); Calcium,Total 8.8 mg/dL (8.5-10.1); Chloride 114 mmol/L (98-107); Creatinine, Serum 1.75 mg/dL (0.55-1.02); EST Glomerular Filtration Rate 30 mL/min (>60); Est Glom Filt Rate - Afr Amer 36 mL/min (>60); Glucose 86 mg/dL (74-106); Phosphorus 2.6 mg/dL (2.5-4.9); Potassium 3.7 mmol/L (3.5-5.1); Sodium Level 145 mmol/L (136-145)
[2022-01-19] MEDS: Epoetin Alfa epbx 10,000 UNITS/ML 10000 UNIT SC (12:14)
== END | disposition home or self-care (01) ==
LOC: MEDOUTP 11:19
PROVIDERS: PCP Family Medicine; Referring Provider Internal Medicine Nephrology; Visit Provider Internal Medicine Nephrology
DX: N18.4 Chronic kidney disease, stage 4 (severe) (principal); D63.1 Anemia in chronic kidney disease
CPT/HCPCS: 36415; 80069; 85025; 96372; Q5106

== ENCOUNTER → 2022-02-02 | Outpatient (CLI) | payer MEDICARE, OTHER, SELFPAY ==
[2022-02-02 11:45] LABS: Hematocrit 33.6 % (37-47); Hemoglobin 10.5 g/dL (12.0-15.0); Mean Corp Hgb Conc 31.3 g/dL (32-36); Mean Corpuscular Hgb 31.6 pg (27.0-32.0); Mean Corpuscular Volume 101.2 fL (81-99); Mean Platelet Vol. 10.2 fl (6.2-12.0); Platelet Count 268 K/mm3 (150-450); RBC Distribution Width CV 13.7 % (11.6-14.6); RBC Distribution Width SD 50.6 fl (35.1-43.9); Red Blood Count 3.32 M/mm3 (4.2-5.4); White Blood Count 9.4 K/mm3 (4.4-11.0)
[2022-02-02 11:58] LABS: BUN 51 mg/dL (7-18); Calcium,Total 9.2 mg/dL (8.5-10.1); Chloride 115 mmol/L (98-107); EST Glomerular Filtration Rate 31 mL/min (>60); Est Glom Filt Rate - Afr Amer 37 mL/min (>60); Glucose 55 mg/dL (74-106); Phosphorus 2.7 mg/dL (2.5-4.9); Potassium 3.8 mmol/L (3.5-5.1); Sodium Level 145 mmol/L (136-145)
[2022-02-02 12:10] VITALS: BP 134/68; PULSE 72; RESP 16; TEMP 36.2; O2SAT 100
[2022-02-02] MEDS: Epoetin Alfa epbx 10,000 UNITS/ML 10000 UNIT SC (12:21)
== END | disposition home or self-care (01) ==
LOC: MEDOUTP 11:18
PROVIDERS: PCP Family Medicine; Referring Provider Internal Medicine Nephrology; Visit Provider Internal Medicine Nephrology
DX: N18.4 Chronic kidney disease, stage 4 (severe) (principal); D63.1 Anemia in chronic kidney disease
CPT/HCPCS: 36415; 80069; 85027; 96372; Q5106

== ENCOUNTER → 2022-02-16 | Outpatient (CLI) | payer MEDICARE, OTHER, SELFPAY ==
[2022-02-16 12:06] LABS: Absolute Lymphocyte Count 1.06 X10^3/uL (0.83-4.51); Absolute Neutrophil Count 6.1 X10^3/uL (2.0-7.7); Basophil# 0.04 X10^3/uL; Basophil% 0.5 % (0-1); Eosinophil# 0.17 X10^3/uL; Eosinophils% 2.1 % (0-5); Hematocrit 31.6 % (37-47); Hemoglobin 9.8 g/dL (12.0-15.0); Lymphocyte # 1.06 X10^3/ul (0.83-4.51); Lymphocyte % 13.3 % (19-41); Mean Corpuscular Hgb 31.9 pg (27.0-32.0); Mean Corpuscular Volume 102.9 fL (81-99); Mean Platelet Vol. 10.3 fl (6.2-12.0); Monocyte# 0.61 X10^3/uL; Monocyte% 7.6 % (0-10); NRBC Flagged by Analyzer 0 % (0-5); Neutrophil # 6.07 X10^3/uL (2.7-7.7); Neutrophil % 75.9 % (47-70); Platelet Count 215 K/mm3 (150-450); RBC Distribution Width CV 14.1 % (11.6-14.6); RBC Distribution Width SD 53.5 fl (35.1-43.9); Red Blood Count 3.07 M/mm3 (4.2-5.4)
[2022-02-16 12:20] LABS: Albumin, Serum 2.9 g/dL (3.2-5.0); BUN 62 mg/dL (7-18); BUN/Creat Ratio 34.6 RATIO (10-20); Calcium,Total 8.9 mg/dL (8.5-10.1); Chloride 115 mmol/L (98-107); Creatinine, Serum 1.79 mg/dL (0.55-1.02); EST Glomerular Filtration Rate 29 mL/min (>60); Est Glom Filt Rate - Afr Amer 35 mL/min (>60); Glucose 82 mg/dL (74-106); Phosphorus 3.1 mg/dL (2.5-4.9); Potassium 4.1 mmol/L (3.5-5.1); Sodium Level 145 mmol/L (136-145)
[2022-02-16 12:25] VITALS: BP 128/60; PULSE 60; RESP 12; TEMP 35.9; O2SAT 98; BMI 41.6
[2022-02-16] MEDS: Epoetin Alfa epbx 10,000 UNITS/ML 10000 UNIT SC (12:39)
== END | disposition home or self-care (01) ==
LOC: MEDOUTP 11:16
PROVIDERS: PCP Family Medicine; Referring Provider Internal Medicine Nephrology; Visit Provider Internal Medicine Nephrology
DX: N18.4 Chronic kidney disease, stage 4 (severe) (principal); D63.1 Anemia in chronic kidney disease
CPT/HCPCS: 36415; 80069; 85025; 96372; Q5106

== ENCOUNTER → 2022-03-02 | Outpatient (CLI) | payer MEDICARE, OTHER, SELFPAY ==
[2022-03-02 11:32] LABS: Hematocrit 33.4 % (37-47); Hemoglobin 10.2 g/dL (12.0-15.0); Mean Corp Hgb Conc 30.5 g/dL (32-36); Mean Corpuscular Hgb 31.7 pg (27.0-32.0); Mean Corpuscular Volume 103.7 fL (81-99); Mean Platelet Vol. 10.2 fl (6.2-12.0); Platelet Count 249 K/mm3 (150-450); RBC Distribution Width CV 13.9 % (11.6-14.6); RBC Distribution Width SD 53.7 fl (35.1-43.9); Red Blood Count 3.22 M/mm3 (4.2-5.4); White Blood Count 7.4 K/mm3 (4.4-11.0)
[2022-03-02 11:53] VITALS: BP 131/42; PULSE 54; RESP 16; TEMP 36.2; O2SAT 99
[2022-03-02 11:53] LABS: BUN 55 mg/dL (7-18); BUN/Creat Ratio 30.4 RATIO (10-20); Calcium,Total 8.9 mg/dL (8.5-10.1); Chloride 115 mmol/L (98-107); Creatinine, Serum 1.81 mg/dL (0.55-1.02); EST Glomerular Filtration Rate 28 mL/min (>60); Est Glom Filt Rate - Afr Amer 34 mL/min (>60); Ferritin 82 ng/mL (8-252); Glucose 133 mg/dL (74-106); Iron 72 ug/dL (50-170); Iron Binding Capacity,Total 229 ug/dL (250-450); PERCENT IRON SATURATION 31.4 % (15.0-55.0); Phosphorus 2.4 mg/dL (2.5-4.9); Sodium Level 146 mmol/L (136-145)
[2022-03-02] MEDS: Epoetin Alfa epbx 10,000 UNITS/ML 10000 UNIT SC (12:18)
[2022-03-02 19:27] LABS: Xtra Tube EP Lab EXTRA TUBE
== END | disposition home or self-care (01) ==
LOC: MEDOUTP 11:10
PROVIDERS: PCP Family Medicine; Referring Provider Internal Medicine Nephrology; Visit Provider Internal Medicine Nephrology
DX: N18.4 Chronic kidney disease, stage 4 (severe) (principal); D63.1 Anemia in chronic kidney disease
CPT/HCPCS: 36415; 80069; 82728; 83540; 83550; 85027; 96372; Q5106

== ENCOUNTER → 2022-03-16 | Outpatient (CLI) | payer MEDICARE, OTHER, SELFPAY ==
[2022-03-16 11:46] LABS: Absolute Lymphocyte Count 1.52 X10^3/uL (0.83-4.51); Absolute Neutrophil Count 4.4 X10^3/uL (2.0-7.7); Basophil# 0.05 X10^3/uL; Basophil% 0.7 % (0-1); Eosinophil# 0.28 X10^3/uL; Eosinophils% 4.1 % (0-5); Hematocrit 33.9 % (37-47); Hemoglobin 10.4 g/dL (12.0-15.0); Lymphocyte # 1.52 X10^3/ul (0.83-4.51); Lymphocyte % 22.2 % (19-41); Mean Corp Hgb Conc 30.7 g/dL (32-36); Mean Corpuscular Hgb 31.9 pg (27.0-32.0); Mean Platelet Vol. 10.7 fl (6.2-12.0); Monocyte# 0.61 X10^3/uL; Monocyte% 8.9 % (0-10); NRBC Flagged by Analyzer 0 % (0-5); Neutrophil # 4.36 X10^3/uL (2.7-7.7); Neutrophil % 63.8 % (47-70); Platelet Count 237 K/mm3 (150-450); RBC Distribution Width CV 13.8 % (11.6-14.6); RBC Distribution Width SD 52.9 fl (35.1-43.9); Red Blood Count 3.26 M/mm3 (4.2-5.4); White Blood Count 6.8 K/mm3 (4.4-11.0)
[2022-03-16 12:00] LABS: Albumin, Serum 3.1 g/dL (3.2-5.0); BUN 51 mg/dL (7-18); Calcium,Total 8.9 mg/dL (8.5-10.1); Chloride 112 mmol/L (98-107); EST Glomerular Filtration Rate 31 mL/min (>60); Est Glom Filt Rate - Afr Amer 37 mL/min (>60); Glucose 82 mg/dL (74-106); Phosphorus 2.6 mg/dL (2.5-4.9); Potassium 4.2 mmol/L (3.5-5.1); Sodium Level 143 mmol/L (136-145)
[2022-03-16 12:21] VITALS: BP 130/62; PULSE 57; RESP 16; O2SAT 98
[2022-03-16] MEDS: Epoetin Alfa epbx 10,000 UNITS/ML 10000 UNIT SC (12:35)
== END | disposition home or self-care (01) ==
PROVIDERS: PCP Family Medicine; Referring Provider Internal Medicine Nephrology; Visit Provider Internal Medicine Nephrology
DX: N18.4 Chronic kidney disease, stage 4 (severe) (principal); D63.1 Anemia in chronic kidney disease
CPT/HCPCS: 36415; 80069; 85025; 96372; Q5106

== ENCOUNTER → 2022-03-30 | Outpatient (CLI) | payer MEDICARE, OTHER, SELFPAY ==
[2022-03-30 11:26] LABS: Hematocrit 32.2 % (37-47); Hemoglobin 9.9 g/dL (12.0-15.0); Mean Corp Hgb Conc 30.7 g/dL (32-36); Mean Corpuscular Hgb 31.7 pg (27.0-32.0); Mean Corpuscular Volume 103.2 fL (81-99); Mean Platelet Vol. 9.9 fl (6.2-12.0); Platelet Count 208 K/mm3 (150-450); RBC Distribution Width CV 13.7 % (11.6-14.6); RBC Distribution Width SD 52.6 fl (35.1-43.9); Red Blood Count 3.12 M/mm3 (4.2-5.4); White Blood Count 6.5 K/mm3 (4.4-11.0)
[2022-03-30 11:37] LABS: Albumin, Serum 2.9 g/dL (3.2-5.0); BUN 45 mg/dL (7-18); BUN/Creat Ratio 27.8 RATIO (10-20); Calcium,Total 8.7 mg/dL (8.5-10.1); Chloride 117 mmol/L (98-107); Creatinine, Serum 1.62 mg/dL (0.55-1.02); EST Glomerular Filtration Rate 32 mL/min (>60); Est Glom Filt Rate - Afr Amer 39 mL/min (>60); Glucose 99 mg/dL (74-106); Phosphorus 2.9 mg/dL (2.5-4.9); Potassium 3.9 mmol/L (3.5-5.1); Sodium Level 146 mmol/L (136-145)
[2022-03-30] MEDS: Epoetin Alfa epbx 10,000 UNITS/ML 10000 UNIT SC (12:09)
[2022-03-30 12:12] VITALS: BP 144/98; PULSE 52; RESP 16; TEMP 36.2; O2SAT 96
== END | disposition home or self-care (01) ==
LOC: MEDOUTP 11:10
PROVIDERS: PCP Family Medicine; Referring Provider Internal Medicine Nephrology; Visit Provider Internal Medicine Nephrology
DX: N18.4 Chronic kidney disease, stage 4 (severe) (principal); D63.1 Anemia in chronic kidney disease
CPT/HCPCS: 36415; 80069; 85027; 96372; Q5106

== ENCOUNTER 2022-04-13 11:10 | Outpatient (CLI) | payer MEDICARE, OTHER, SELFPAY ==
[2022-04-13 11:22] LABS: Hematocrit 32.8 % (37-47); Hemoglobin 10.3 g/dL (12.0-15.0); Mean Corp Hgb Conc 31.4 g/dL (32-36); Mean Corpuscular Hgb 32.9 pg (27.0-32.0); Mean Corpuscular Volume 104.8 fL (81-99); Mean Platelet Vol. 10.2 fl (6.2-12.0); Platelet Count 244 K/mm3 (150-450); RBC Distribution Width CV 13.5 % (11.6-14.6); RBC Distribution Width SD 52.1 fl (35.1-43.9); Red Blood Count 3.13 M/mm3 (4.2-5.4); White Blood Count 7.4 K/mm3 (4.4-11.0)
[2022-04-13 11:31] VITALS: BP 168/55; PULSE 55; RESP 14; O2SAT 98
[2022-04-13 11:43] LABS: Albumin, Serum 2.9 g/dL (3.2-5.0); BUN 37 mg/dL (7-18); BUN/Creat Ratio 23.7 RATIO (10-20); Calcium,Total 8.6 mg/dL (8.5-10.1); Chloride 112 mmol/L (98-107); Creatinine, Serum 1.56 mg/dL (0.55-1.02); EST Glomerular Filtration Rate 34 mL/min (>60); Est Glom Filt Rate - Afr Amer 41 mL/min (>60); Ferritin 75 ng/mL (8-252); Glucose 172 mg/dL (74-106); Iron 56 ug/dL (50-170); Iron Binding Capacity,Total 219 ug/dL (250-450); PERCENT IRON SATURATION 25.6 % (15.0-55.0); Phosphorus 2.3 mg/dL (2.5-4.9); Potassium 3.4 mmol/L (3.5-5.1); Sodium Level 144 mmol/L (136-145)
[2022-04-13] MEDS: Epoetin Alfa epbx 10,000 UNITS/ML 10000 UNIT SC (11:57)
== END 2022-04-13 23:59 | disposition home or self-care (01) ==
LOC: MEDOUTP 11:10
PROVIDERS: PCP Family Medicine; Referring Provider Internal Medicine Nephrology; Visit Provider Internal Medicine Nephrology
DX: N18.4 Chronic kidney disease, stage 4 (severe) (principal); D63.1 Anemia in chronic kidney disease
CPT/HCPCS: 36415; 80069; 82728; 83540; 83550; 85027; 96372; Q5106

== ENCOUNTER → 2022-04-27 | Outpatient (CLI) | payer MEDICARE, OTHER, SELFPAY ==
[2022-04-27 11:30] LABS: Absolute Lymphocyte Count 1.73 X10^3/uL (0.83-4.51); Absolute Neutrophil Count 4.3 X10^3/uL (2.0-7.7); Basophil# 0.04 X10^3/uL; Basophil% 0.6 % (0-1); Eosinophil# 0.33 X10^3/uL; Eosinophils% 4.7 % (0-5); Hematocrit 33.7 % (37-47); Hemoglobin 10.2 g/dL (12.0-15.0); Lymphocyte # 1.73 X10^3/ul (0.83-4.51); Lymphocyte % 24.5 % (19-41); Mean Corp Hgb Conc 30.3 g/dL (32-36); Mean Corpuscular Hgb 31.9 pg (27.0-32.0); Mean Corpuscular Volume 105.3 fL (81-99); Mean Platelet Vol. 10.4 fl (6.2-12.0); Monocyte# 0.63 X10^3/uL; Monocyte% 8.9 % (0-10); NRBC Flagged by Analyzer 0 % (0-5); Neutrophil # 4.31 X10^3/uL (2.7-7.7); Platelet Count 232 K/mm3 (150-450); RBC Distribution Width CV 13.5 % (11.6-14.6); RBC Distribution Width SD 52.5 fl (35.1-43.9); White Blood Count 7.1 K/mm3 (4.4-11.0)
[2022-04-27 11:42] LABS: BUN 48 mg/dL (7-18); BUN/Creat Ratio 28.7 RATIO (10-20); Calcium,Total 8.7 mg/dL (8.5-10.1); Chloride 113 mmol/L (98-107); Creatinine, Serum 1.67 mg/dL (0.55-1.02); EST Glomerular Filtration Rate 31 mL/min (>60); Est Glom Filt Rate - Afr Amer 38 mL/min (>60); Glucose 113 mg/dL (74-106); Phosphorus 2.9 mg/dL (2.5-4.9); Potassium 4.1 mmol/L (3.5-5.1); Sodium Level 145 mmol/L (136-145)
[2022-04-27 11:45] VITALS: BP 140/69; PULSE 55; RESP 16; O2SAT 96; BMI 40.0
[2022-04-27] MEDS: Epoetin Alfa epbx 10,000 UNITS/ML 10000 UNIT SC (11:50)
== END | disposition home or self-care (01) ==
LOC: MEDOUTP 11:17
PROVIDERS: PCP Family Medicine; Referring Provider Internal Medicine Nephrology; Visit Provider Internal Medicine Nephrology
DX: N18.4 Chronic kidney disease, stage 4 (severe) (principal); D63.1 Anemia in chronic kidney disease
CPT/HCPCS: 36415; 80069; 85025; 96372; Q5106

== ENCOUNTER → 2022-05-11 | Outpatient (CLI) | payer MEDICARE, OTHER, SELFPAY ==
[2022-05-11 11:23] LABS: Absolute Lymphocyte Count 1.73 X10^3/uL (0.83-4.51); Absolute Neutrophil Count 3.6 X10^3/uL (2.0-7.7); Basophil# 0.04 X10^3/uL; Basophil% 0.6 % (0-1); Eosinophil# 0.22 X10^3/uL; Eosinophils% 3.5 % (0-5); Hematocrit 33.5 % (37-47); Hemoglobin 10.5 g/dL (12.0-15.0); Lymphocyte # 1.73 X10^3/ul (0.83-4.51); Lymphocyte % 27.9 % (19-41); Mean Corp Hgb Conc 31.3 g/dL (32-36); Mean Corpuscular Hgb 32.4 pg (27.0-32.0); Mean Corpuscular Volume 103.4 fL (81-99); Mean Platelet Vol. 9.9 fl (6.2-12.0); Monocyte# 0.59 X10^3/uL; Monocyte% 9.5 % (0-10); NRBC Flagged by Analyzer 0 % (0-5); Neutrophil % 58.2 % (47-70); Platelet Count 219 K/mm3 (150-450); RBC Distribution Width CV 13.4 % (11.6-14.6); Red Blood Count 3.24 M/mm3 (4.2-5.4); White Blood Count 6.2 K/mm3 (4.4-11.0)
[2022-05-11] MEDS: Epoetin Alfa epbx 10,000 UNITS/ML 10000 UNIT SC (11:41)
[2022-05-11 11:42] LABS: Albumin, Serum 3.3 g/dL (3.2-5.0); BUN 48 mg/dL (7-18); BUN/Creat Ratio 28.2 RATIO (10-20); Calcium,Total 8.9 mg/dL (8.5-10.1); Chloride 112 mmol/L (98-107); EST Glomerular Filtration Rate 31 mL/min (>60); Est Glom Filt Rate - Afr Amer 37 mL/min (>60); Ferritin 82 ng/mL (8-252); Glucose 147 mg/dL (74-106); Iron 63 ug/dL (50-170); Iron Binding Capacity,Total 241 ug/dL (250-450); PERCENT IRON SATURATION 26.1 % (15.0-55.0); Phosphorus 2.9 mg/dL (2.5-4.9); Potassium 3.4 mmol/L (3.5-5.1); Sodium Level 144 mmol/L (136-145)
[2022-05-11 11:50] VITALS: BP 150/82; PULSE 62; RESP 14; TEMP 36.2; O2SAT 97
[2022-05-11 19:19] LABS: Xtra Tube EP Lab EXTRA TUBE
== END | disposition home or self-care (01) ==
LOC: MEDOUTP 11:07
PROVIDERS: PCP Family Medicine; Referring Provider Internal Medicine Nephrology; Visit Provider Internal Medicine Nephrology
DX: N18.4 Chronic kidney disease, stage 4 (severe) (principal); D63.1 Anemia in chronic kidney disease
CPT/HCPCS: 36415; 80069; 82728; 83540; 83550; 85025; 96372; Q5106

== ENCOUNTER → 2022-05-25 | Outpatient (CLI) | payer MEDICARE, OTHER, SELFPAY ==
[2022-05-25 11:12] LABS: Hematocrit 33.1 % (37-47); Hemoglobin 10.4 g/dL (12.0-15.0); Mean Corp Hgb Conc 31.4 g/dL (32-36); Mean Corpuscular Volume 105.1 fL (81-99); Mean Platelet Vol. 10.4 fl (6.2-12.0); Platelet Count 199 K/mm3 (150-450); RBC Distribution Width CV 13.7 % (11.6-14.6); RBC Distribution Width SD 52.8 fl (35.1-43.9); Red Blood Count 3.15 M/mm3 (4.2-5.4); White Blood Count 6.1 K/mm3 (4.4-11.0)
[2022-05-25 11:30] VITALS: BP 154/70; PULSE 54; RESP 16; TEMP 36.3; O2SAT 97; BMI 39.6
[2022-05-25 11:30] LABS: Albumin, Serum 3.1 g/dL (3.2-5.0); BUN 50 mg/dL (7-18); BUN/Creat Ratio 30.7 RATIO (10-20); Calcium,Total 8.6 mg/dL (8.5-10.1); Chloride 115 mmol/L (98-107); Creatinine, Serum 1.63 mg/dL (0.55-1.02); EST Glomerular Filtration Rate 32 mL/min (>60); Est Glom Filt Rate - Afr Amer 39 mL/min (>60); Ferritin 68 ng/mL (8-252); Glucose 192 mg/dL (74-106); Iron 62 ug/dL (50-170); Iron Binding Capacity,Total 219 ug/dL (250-450); PERCENT IRON SATURATION 28.3 % (15.0-55.0); Phosphorus 2.7 mg/dL (2.5-4.9); Potassium 3.9 mmol/L (3.5-5.1); Sodium Level 145 mmol/L (136-145)
[2022-05-25] MEDS: Epoetin Alfa epbx 10,000 UNITS/ML 10000 UNIT SC (11:49)
== END | disposition home or self-care (01) ==
LOC: MEDOUTP 10:59
PROVIDERS: PCP Family Medicine; Referring Provider Internal Medicine Nephrology; Visit Provider Internal Medicine Nephrology
DX: N18.4 Chronic kidney disease, stage 4 (severe) (principal); D63.1 Anemia in chronic kidney disease
CPT/HCPCS: 36415; 80069; 82728; 83540; 83550; 85027; 96372; Q5106

== ENCOUNTER → 2022-06-08 | Outpatient (CLI) | payer MEDICARE, OTHER, SELFPAY ==
[2022-06-08 11:14] LABS: Absolute Lymphocyte Count 1.76 X10^3/uL (0.83-4.51); Absolute Neutrophil Count 6.1 X10^3/uL (2.0-7.7); Basophil# 0.02 X10^3/uL; Basophil% 0.2 % (0-1); Eosinophil# 0.13 X10^3/uL; Eosinophils% 1.5 % (0-5); Hematocrit 36.8 % (37-47); Hemoglobin 11.2 g/dL (12.0-15.0); Lymphocyte # 1.76 X10^3/ul (0.83-4.51); Mean Corp Hgb Conc 30.4 g/dL (32-36); Mean Corpuscular Hgb 31.6 pg (27.0-32.0); Mean Platelet Vol. 10.5 fl (6.2-12.0); Monocyte# 0.77 X10^3/uL; Monocyte% 8.8 % (0-10); NRBC Flagged by Analyzer 0 % (0-5); Neutrophil # 6.05 X10^3/uL (2.7-7.7); Neutrophil % 68.9 % (47-70); Platelet Count 226 K/mm3 (150-450); RBC Distribution Width CV 13.5 % (11.6-14.6); RBC Distribution Width SD 51.9 fl (35.1-43.9); Red Blood Count 3.54 M/mm3 (4.2-5.4); White Blood Count 8.8 K/mm3 (4.4-11.0)
[2022-06-08 11:25] LABS: Albumin, Serum 3.2 g/dL (3.2-5.0); BUN 53 mg/dL (7-18); BUN/Creat Ratio 32.7 RATIO (10-20); Calcium,Total 9.2 mg/dL (8.5-10.1); Chloride 113 mmol/L (98-107); Creatinine, Serum 1.62 mg/dL (0.55-1.02); EST Glomerular Filtration Rate 32 mL/min (>60); Est Glom Filt Rate - Afr Amer 39 mL/min (>60); Glucose 117 mg/dL (74-106); Phosphorus 2.5 mg/dL (2.5-4.9); Potassium 3.9 mmol/L (3.5-5.1); Sodium Level 147 mmol/L (136-145)
== END | disposition home or self-care (01) ==
LOC: MEDOUTP 11:01
PROVIDERS: PCP Family Medicine; Referring Provider Internal Medicine Nephrology; Visit Provider Internal Medicine Nephrology
DX: N18.4 Chronic kidney disease, stage 4 (severe) (principal); D63.1 Anemia in chronic kidney disease
CPT/HCPCS: 36415; 80069; 85025

== ENCOUNTER → 2022-06-22 | Outpatient (CLI) | payer MEDICARE, OTHER, SELFPAY ==
[2022-06-22 11:26] LABS: Hematocrit 34.3 % (37-47); Hemoglobin 10.7 g/dL (12.0-15.0); Mean Corp Hgb Conc 31.2 g/dL (32-36); Mean Corpuscular Hgb 33.2 pg (27.0-32.0); Mean Corpuscular Volume 106.5 fL (81-99); Mean Platelet Vol. 10.6 fl (6.2-12.0); Platelet Count 164 K/mm3 (150-450); RBC Distribution Width CV 13.7 % (11.6-14.6); RBC Distribution Width SD 54.7 fl (35.1-43.9); Red Blood Count 3.22 M/mm3 (4.2-5.4); White Blood Count 6.6 K/mm3 (4.4-11.0)
[2022-06-22 11:37] LABS: BUN 50 mg/dL (7-18); BUN/Creat Ratio 30.9 RATIO (10-20); Calcium,Total 8.9 mg/dL (8.5-10.1); Chloride 120 mmol/L (98-107); Creatinine, Serum 1.62 mg/dL (0.55-1.02); EST Glomerular Filtration Rate 32 mL/min (>60); Est Glom Filt Rate - Afr Amer 39 mL/min (>60); Glucose 75 mg/dL (74-106); Phosphorus 2.5 mg/dL (2.5-4.9); Potassium 3.9 mmol/L (3.5-5.1); Sodium Level 149 mmol/L (136-145)
== END | disposition home or self-care (01) ==
LOC: MEDOUTP 11:07
PROVIDERS: PCP Family Medicine; Referring Provider Internal Medicine Nephrology; Visit Provider Internal Medicine Nephrology
DX: N18.4 Chronic kidney disease, stage 4 (severe) (principal); D63.1 Anemia in chronic kidney disease
CPT/HCPCS: 36415; 80069; 85027

== ENCOUNTER → 2022-07-06 | Outpatient (CLI) | payer MEDICARE, OTHER, SELFPAY ==
[2022-07-06 11:29] LABS: Absolute Lymphocyte Count 2.34 X10^3/uL (0.83-4.51); Absolute Neutrophil Count 4.4 X10^3/uL (2.0-7.7); Basophil# 0.02 X10^3/uL; Basophil% 0.3 % (0-1); Eosinophil# 0.23 X10^3/uL; Hematocrit 32.9 % (37-47); Hemoglobin 10.2 g/dL (12.0-15.0); Lymphocyte # 2.34 X10^3/ul (0.83-4.51); Lymphocyte % 30.4 % (19-41); Mean Corpuscular Hgb 32.2 pg (27.0-32.0); Mean Corpuscular Volume 103.8 fL (81-99); Mean Platelet Vol. 10.5 fl (6.2-12.0); Monocyte# 0.67 X10^3/uL; Monocyte% 8.7 % (0-10); NRBC Flagged by Analyzer 0 % (0-5); Neutrophil # 4.39 X10^3/uL (2.7-7.7); Neutrophil % 57.1 % (47-70); Platelet Count 232 K/mm3 (150-450); RBC Distribution Width CV 13.9 % (11.6-14.6); RBC Distribution Width SD 53.6 fl (35.1-43.9); Red Blood Count 3.17 M/mm3 (4.2-5.4); White Blood Count 7.7 K/mm3 (4.4-11.0)
[2022-07-06 11:38] LABS: Albumin, Serum 3.1 g/dL (3.2-5.0); BUN 50 mg/dL (7-18); BUN/Creat Ratio 28.6 RATIO (10-20); Calcium,Total 9.1 mg/dL (8.5-10.1); Chloride 115 mmol/L (98-107); Creatinine, Serum 1.75 mg/dL (0.55-1.02); EST Glomerular Filtration Rate 30 mL/min (>60); Est Glom Filt Rate - Afr Amer 36 mL/min (>60); Glucose 47 mg/dL (74-106); Phosphorus 2.9 mg/dL (2.5-4.9); Sodium Level 146 mmol/L (136-145)
[2022-07-06 11:43] VITALS: BP 132/64; PULSE 61; RESP 16; TEMP 36.3; O2SAT 95; BMI 39.6
[2022-07-06] MEDS: Epoetin Alfa epbx 10,000 UNITS/ML 10000 UNIT SC (11:46)
== END | disposition home or self-care (01) ==
PROVIDERS: PCP Family Medicine; Referring Provider Internal Medicine Nephrology; Visit Provider Internal Medicine Nephrology
DX: N18.4 Chronic kidney disease, stage 4 (severe) (principal); D63.1 Anemia in chronic kidney disease
CPT/HCPCS: 36415; 80069; 85025; 96372; Q5106

== ENCOUNTER → 2022-07-27 | Outpatient (CLI) | payer MEDICARE, OTHER, SELFPAY ==
[2022-07-27 11:27] LABS: Mean Corp Hgb Conc 31.3 g/dL (32-36); Mean Corpuscular Hgb 32.5 pg (27.0-32.0); Mean Corpuscular Volume 103.9 fL (81-99); Mean Platelet Vol. 10.5 fl (6.2-12.0); Platelet Count 217 K/mm3 (150-450); RBC Distribution Width CV 13.8 % (11.6-14.6); RBC Distribution Width SD 52.8 fl (35.1-43.9); Red Blood Count 3.08 M/mm3 (4.2-5.4); White Blood Count 7.6 K/mm3 (4.4-11.0)
[2022-07-27 11:45] LABS: Vitamin B12 199 pg/mL (211-911)
[2022-07-27 11:49] VITALS: BP 141/75; PULSE 60; RESP 16; TEMP 36.2; O2SAT 98
[2022-07-27 11:53] LABS: Albumin, Serum 3.1 g/dL (3.2-5.0); BUN 45 mg/dL (7-18); BUN/Creat Ratio 27.6 RATIO (10-20); Calcium,Total 8.9 mg/dL (8.5-10.1); Chloride 114 mmol/L (98-107); Creatinine, Serum 1.63 mg/dL (0.55-1.02); EST Glomerular Filtration Rate 32 mL/min (>60); Est Glom Filt Rate - Afr Amer 39 mL/min (>60); Ferritin 100 ng/mL (8-252); Glucose 143 mg/dL (74-106); Iron 54 ug/dL (50-170); Iron Binding Capacity,Total 243 ug/dL (250-450); PERCENT IRON SATURATION 22.2 % (15.0-55.0); Phosphorus 2.9 mg/dL (2.5-4.9); Potassium 3.7 mmol/L (3.5-5.1); Sodium Level 146 mmol/L (136-145)
[2022-07-27] MEDS: Epoetin Alfa epbx 10,000 UNITS/ML 10000 UNIT SC (12:10)
== END | disposition home or self-care (01) ==
PROVIDERS: PCP Family Medicine; Referring Provider Internal Medicine Nephrology; Visit Provider Internal Medicine Nephrology
DX: N18.4 Chronic kidney disease, stage 4 (severe) (principal); D63.1 Anemia in chronic kidney disease
CPT/HCPCS: 36415; 80069; 82607; 82728; 82746; 83540; 83550; 85027; 96372; Q5106

== ENCOUNTER 2022-08-10 11:06 | Outpatient (CLI) | payer MEDICARE, OTHER, SELFPAY ==
[2022-08-10 11:49] LABS: BUN 47 mg/dL (7-18); BUN/Creat Ratio 29.9 RATIO (10-20); Calcium,Total 9.1 mg/dL (8.5-10.1); Chloride 114 mmol/L (98-107); Creatinine, Serum 1.57 mg/dL (0.55-1.02); EST Glomerular Filtration Rate 34 mL/min (>60); Est Glom Filt Rate - Afr Amer 41 mL/min (>60); Glucose 46 mg/dL (74-106); Phosphorus 2.8 mg/dL (2.5-4.9); Sodium Level 145 mmol/L (136-145)
[2022-08-10 12:22] LABS: Hematocrit 32.2 % (37-47); Hemoglobin 10.1 g/dL (12.0-15.0); Mean Corp Hgb Conc 31.4 g/dL (32-36); Mean Corpuscular Hgb 33.2 pg (27.0-32.0); Mean Corpuscular Volume 105.9 fL (81-99); Mean Platelet Vol. 10.5 fl (6.2-12.0); Platelet Count 229 K/mm3 (150-450); RBC Distribution Width SD 55.2 fl (35.1-43.9); Red Blood Count 3.04 M/mm3 (4.2-5.4); White Blood Count 7.6 K/mm3 (4.4-11.0)
[2022-08-10 12:49] VITALS: BP 141/66; PULSE 59; RESP 16; O2SAT 97; BMI 39.6
[2022-08-10] MEDS: Epoetin Alfa epbx 10,000 UNITS/ML 10000 UNIT SC (12:51)
== END 2022-08-10 23:59 | disposition home or self-care (01) ==
LOC: MEDOUTP 11:06
PROVIDERS: Internal Medicine Nephrology; PCP Family Medicine; Referring Provider Internal Medicine Nephrology; Visit Provider Internal Medicine Nephrology
DX: N18.4 Chronic kidney disease, stage 4 (severe) (principal); D63.1 Anemia in chronic kidney disease
CPT/HCPCS: 36415; 80069; 85027; 96372; Q5106

== ENCOUNTER 2022-08-24 11:07 | Outpatient (CLI) | payer MEDICARE, OTHER, SELFPAY ==
[2022-08-24 11:24] LABS: Absolute Lymphocyte Count 1.57 X10^3/uL (0.83-4.51); Absolute Neutrophil Count 4.8 X10^3/uL (2.0-7.7); Basophil# 0.04 X10^3/uL; Basophil% 0.5 % (0-1); Eosinophils% 4.1 % (0-5); Hematocrit 32.7 % (37-47); Hemoglobin 10.3 g/dL (12.0-15.0); Lymphocyte # 1.57 X10^3/ul (0.83-4.51); Lymphocyte % 21.2 % (19-41); Mean Corp Hgb Conc 31.5 g/dL (32-36); Mean Corpuscular Hgb 33.6 pg (27.0-32.0); Mean Corpuscular Volume 106.5 fL (81-99); Mean Platelet Vol. 10.2 fl (6.2-12.0); Monocyte# 0.64 X10^3/uL; Monocyte% 8.7 % (0-10); NRBC Flagged by Analyzer 0 % (0-5); Neutrophil # 4.81 X10^3/uL (2.7-7.7); Neutrophil % 65.1 % (47-70); Platelet Count 240 K/mm3 (150-450); RBC Distribution Width CV 13.6 % (11.6-14.6); RBC Distribution Width SD 53.6 fl (35.1-43.9); Red Blood Count 3.07 M/mm3 (4.2-5.4); White Blood Count 7.4 K/mm3 (4.4-11.0)
[2022-08-24 11:44] LABS: Albumin, Serum 3.1 g/dL (3.2-5.0); BUN 55 mg/dL (7-18); BUN/Creat Ratio 29.6 RATIO (10-20); Calcium,Total 8.8 mg/dL (8.5-10.1); Chloride 114 mmol/L (98-107); Creatinine, Serum 1.86 mg/dL (0.55-1.02); EST Glomerular Filtration Rate 28 mL/min (>60); Est Glom Filt Rate - Afr Amer 33 mL/min (>60); Ferritin 83 ng/mL (8-252); Glucose 100 mg/dL (74-106); Iron 58 ug/dL (50-170); Iron Binding Capacity,Total 234 ug/dL (250-450); PERCENT IRON SATURATION 24.8 % (15.0-55.0); Phosphorus 3.1 mg/dL (2.5-4.9); Potassium 4.2 mmol/L (3.5-5.1); Sodium Level 144 mmol/L (136-145)
[2022-08-24 11:55] VITALS: BP 132/55; PULSE 60; RESP 16; TEMP 36.4; O2SAT 99
[2022-08-24] MEDS: Epoetin Alfa epbx 10,000 UNITS/ML 10000 UNIT SC (12:18)
== END 2022-08-24 23:59 | disposition home or self-care (01) ==
LOC: MEDOUTP 11:07
PROVIDERS: PCP Family Medicine; Referring Provider Internal Medicine Nephrology; Visit Provider Internal Medicine Nephrology
DX: N18.4 Chronic kidney disease, stage 4 (severe) (principal); D63.1 Anemia in chronic kidney disease
CPT/HCPCS: 96372; 36415; 80069; 82728; 83540; 83550; 85025; Q5106

== ENCOUNTER 2022-09-07 11:09 | Outpatient (CLI) | payer MEDICARE, OTHER, SELFPAY ==
[2022-09-07 11:39] LABS: Absolute Lymphocyte Count 1.25 X10^3/uL (0.83-4.51); Basophil# 0.04 X10^3/uL; Basophil% 0.5 % (0-1); Eosinophil# 0.18 X10^3/uL; Eosinophils% 2.2 % (0-5); Hematocrit 34.7 % (37-47); Hemoglobin 10.7 g/dL (12.0-15.0); Lymphocyte # 1.25 X10^3/ul (0.83-4.51); Lymphocyte % 15.2 % (19-41); Mean Corp Hgb Conc 30.8 g/dL (32-36); Mean Corpuscular Hgb 32.6 pg (27.0-32.0); Mean Corpuscular Volume 105.8 fL (81-99); Mean Platelet Vol. 10.1 fl (6.2-12.0); Monocyte# 0.69 X10^3/uL; Monocyte% 8.4 % (0-10); NRBC Flagged by Analyzer 0 % (0-5); Neutrophil # 6.02 X10^3/uL (2.7-7.7); Neutrophil % 73.2 % (47-70); Platelet Count 240 K/mm3 (150-450); RBC Distribution Width CV 13.2 % (11.6-14.6); RBC Distribution Width SD 51.1 fl (35.1-43.9); Red Blood Count 3.28 M/mm3 (4.2-5.4); White Blood Count 8.2 K/mm3 (4.4-11.0)
[2022-09-07 11:50] VITALS: BP 169/72; PULSE 64; RESP 16; TEMP 36.8; O2SAT 97; BMI 39.6
[2022-09-07 11:52] LABS: BUN 48 mg/dL (7-18); BUN/Creat Ratio 28.9 RATIO (10-20); Chloride 113 mmol/L (98-107); Creatinine, Serum 1.66 mg/dL (0.55-1.02); EST Glomerular Filtration Rate 31 mL/min (>60); Est Glom Filt Rate - Afr Amer 38 mL/min (>60); Glucose 136 mg/dL (74-106); Phosphorus 2.6 mg/dL (2.5-4.9); Potassium 3.7 mmol/L (3.5-5.1); Sodium Level 145 mmol/L (136-145)
[2022-09-07] MEDS: Epoetin Alfa epbx 10,000 UNITS/ML 10000 UNIT SC (12:20)
== END 2022-09-07 23:59 | disposition home or self-care (01) ==
LOC: MEDOUTP 11:09
PROVIDERS: PCP Family Medicine; Referring Provider Internal Medicine Nephrology; Visit Provider Internal Medicine Nephrology
DX: N18.4 Chronic kidney disease, stage 4 (severe) (principal); D63.1 Anemia in chronic kidney disease
CPT/HCPCS: 96372; 36415; 80069; 85025; Q5106

== ENCOUNTER 2022-09-21 11:14 | Outpatient (CLI) | payer MEDICARE, OTHER, SELFPAY ==
[2022-09-21 11:53] LABS: Absolute Lymphocyte Count 1.39 X10^3/uL (0.83-4.51); Absolute Neutrophil Count 4.3 X10^3/uL (2.0-7.7); Basophil# 0.04 X10^3/uL; Basophil% 0.6 % (0-1); Eosinophil# 0.31 X10^3/uL; Eosinophils% 4.7 % (0-5); Hematocrit 33.3 % (37-47); Hemoglobin 10.6 g/dL (12.0-15.0); Lymphocyte # 1.39 X10^3/ul (0.83-4.51); Mean Corp Hgb Conc 31.8 g/dL (32-36); Mean Corpuscular Hgb 34.2 pg (27.0-32.0); Mean Corpuscular Volume 107.4 fL (81-99); Mean Platelet Vol. 9.7 fl (6.2-12.0); Monocyte% 9.1 % (0-10); NRBC Flagged by Analyzer 0 % (0-5); Neutrophil # 4.25 X10^3/uL (2.7-7.7); Neutrophil % 64.1 % (47-70); Platelet Count 217 K/mm3 (150-450); RBC Distribution Width CV 12.9 % (11.6-14.6); White Blood Count 6.6 K/mm3 (4.4-11.0)
[2022-09-21 12:11] LABS: Albumin, Serum 3.1 g/dL (3.2-5.0); BUN 54 mg/dL (7-18); BUN/Creat Ratio 25.2 RATIO (10-20); Calcium,Total 8.9 mg/dL (8.5-10.1); Chloride 114 mmol/L (98-107); Creatinine, Serum 2.14 mg/dL (0.55-1.02); EST Glomerular Filtration Rate 23 mL/min (>60); Est Glom Filt Rate - Afr Amer 28 mL/min (>60); Ferritin 78 ng/mL (8-252); Glucose 111 mg/dL (74-106); Iron 63 ug/dL (50-170); Iron Binding Capacity,Total 221 ug/dL (250-450); PERCENT IRON SATURATION 28.5 % (15.0-55.0); Potassium 4.3 mmol/L (3.5-5.1); Sodium Level 143 mmol/L (136-145)
[2022-09-21 12:16] VITALS: BP 153/60; PULSE 59; RESP 16; TEMP 36; O2SAT 96; BMI 39.6
[2022-09-21] MEDS: Epoetin Alfa epbx 10,000 UNITS/ML 10000 UNIT SC (12:25)
== END 2022-09-21 23:59 | disposition home or self-care (01) ==
PROVIDERS: PCP Family Medicine; Referring Provider Internal Medicine Nephrology; Visit Provider Internal Medicine Nephrology
DX: N18.4 Chronic kidney disease, stage 4 (severe) (principal); D63.1 Anemia in chronic kidney disease
CPT/HCPCS: 96374; 36415; 80069; 82728; 83540; 83550; 85025; 96372; Q5106

== ENCOUNTER 2022-10-05 11:03 | Outpatient (CLI) | payer MEDICARE, OTHER, SELFPAY ==
[2022-10-05 11:15] LABS: Absolute Lymphocyte Count 1.84 X10^3/uL (0.83-4.51); Absolute Neutrophil Count 4.5 X10^3/uL (2.0-7.7); Basophil# 0.04 X10^3/uL; Basophil% 0.5 % (0-1); Eosinophil# 0.24 X10^3/uL; Eosinophils% 3.3 % (0-5); Hematocrit 34.1 % (37-47); Hemoglobin 10.3 g/dL (12.0-15.0); Lymphocyte # 1.84 X10^3/ul (0.83-4.51); Lymphocyte % 25.1 % (19-41); Mean Corp Hgb Conc 30.2 g/dL (32-36); Mean Corpuscular Volume 109.3 fL (81-99); Mean Platelet Vol. 9.9 fl (6.2-12.0); Monocyte# 0.65 X10^3/uL; Monocyte% 8.9 % (0-10); NRBC Flagged by Analyzer 0 % (0-5); Neutrophil # 4.51 X10^3/uL (2.7-7.7); Neutrophil % 61.7 % (47-70); Platelet Count 219 K/mm3 (150-450); RBC Distribution Width CV 13.1 % (11.6-14.6); RBC Distribution Width SD 52.2 fl (35.1-43.9); Red Blood Count 3.12 M/mm3 (4.2-5.4); White Blood Count 7.3 K/mm3 (4.4-11.0)
[2022-10-05 11:29] VITALS: BP 147/46; PULSE 63; RESP 16; TEMP 36.2; O2SAT 99
[2022-10-05 11:37] LABS: Albumin, Serum 3.1 g/dL (3.2-5.0); BUN 54 mg/dL (7-18); Calcium,Total 8.7 mg/dL (8.5-10.1); Chloride 115 mmol/L (98-107); EST Glomerular Filtration Rate 29 mL/min (>60); Est Glom Filt Rate - Afr Amer 35 mL/min (>60); Glucose 40 mg/dL (74-106); Phosphorus 2.4 mg/dL (2.5-4.9); Potassium 3.6 mmol/L (3.5-5.1); Sodium Level 144 mmol/L (136-145)
[2022-10-05] MEDS: Epoetin Alfa epbx 10,000 UNITS/ML 10000 UNIT SC (12:13)
[2022-10-05 12:40] LABS: Bedside Glucose 118 mg/dL (74-106)
== END 2022-10-05 23:59 | disposition home or self-care (01) ==
LOC: MEDOUTP 11:03
PROVIDERS: PCP Family Medicine; Referring Provider Internal Medicine Nephrology; Visit Provider Internal Medicine Nephrology
DX: N18.4 Chronic kidney disease, stage 4 (severe) (principal); D63.1 Anemia in chronic kidney disease
CPT/HCPCS: 36415; 80069; 82962; 85025; 96372; Q5106

== ENCOUNTER → 2022-10-26 | Outpatient (CLI) | payer MEDICARE, OTHER, SELFPAY ==
[2022-10-26 11:26] LABS: Hematocrit 33.1 % (37-47); Hemoglobin 10.2 g/dL (12.0-15.0); Mean Corp Hgb Conc 30.8 g/dL (32-36); Mean Corpuscular Hgb 33.1 pg (27.0-32.0); Mean Corpuscular Volume 107.5 fL (81-99); Platelet Count 230 K/mm3 (150-450); RBC Distribution Width CV 12.9 % (11.6-14.6); RBC Distribution Width SD 50.4 fl (35.1-43.9); Red Blood Count 3.08 M/mm3 (4.2-5.4)
[2022-10-26 11:34] VITALS: BP 140/60; PULSE 70; RESP 16; TEMP 36.6; O2SAT 99
[2022-10-26 11:41] LABS: Albumin, Serum 3.1 g/dL (3.2-5.0); BUN 53 mg/dL (7-18); BUN/Creat Ratio 30.5 RATIO (10-20); Chloride 115 mmol/L (98-107); Creatinine, Serum 1.74 mg/dL (0.55-1.02); EST Glomerular Filtration Rate 30 mL/min (>60); Est Glom Filt Rate - Afr Amer 36 mL/min (>60); Glucose 73 mg/dL (74-106); Phosphorus 2.6 mg/dL (2.5-4.9); Sodium Level 147 mmol/L (136-145)
[2022-10-26] MEDS: Epoetin Alfa epbx 10,000 UNITS/ML 10000 UNIT SC (11:45)
== END | disposition home or self-care (01) ==
LOC: MEDOUTP 11:08
PROVIDERS: PCP Family Medicine; Referring Provider Internal Medicine Nephrology; Visit Provider Internal Medicine Nephrology
DX: N18.4 Chronic kidney disease, stage 4 (severe) (principal); D63.1 Anemia in chronic kidney disease
CPT/HCPCS: 36415; 80069; 85027; 96372; Q5106

== ENCOUNTER 2022-11-09 11:10 | Outpatient (CLI) | payer MEDICARE, OTHER, SELFPAY ==
[2022-11-09 11:31] LABS: Hematocrit 36.5 % (37-47); Hemoglobin 11.3 g/dL (12.0-15.0); Mean Corpuscular Hgb 33.1 pg (27.0-32.0); Mean Platelet Vol. 10.8 fl (6.2-12.0); Platelet Count 231 K/mm3 (150-450); RBC Distribution Width CV 13.6 % (11.6-14.6); RBC Distribution Width SD 53.8 fl (35.1-43.9); Red Blood Count 3.41 M/mm3 (4.2-5.4); White Blood Count 10.7 K/mm3 (4.4-11.0)
[2022-11-09 11:54] LABS: Albumin, Serum 3.3 g/dL (3.2-5.0); BUN 60 mg/dL (7-18); BUN/Creat Ratio 31.6 RATIO (10-20); Calcium,Total 9.4 mg/dL (8.5-10.1); Chloride 113 mmol/L (98-107); EST Glomerular Filtration Rate 27 mL/min (>60); Est Glom Filt Rate - Afr Amer 33 mL/min (>60); Ferritin 57 ng/mL (8-252); Glucose 71 mg/dL (74-106); Iron 79 ug/dL (50-170); Iron Binding Capacity,Total 277 ug/dL (250-450); PERCENT IRON SATURATION 28.5 % (15.0-55.0); Phosphorus 3.5 mg/dL (2.5-4.9); Potassium 4.4 mmol/L (3.5-5.1); Sodium Level 144 mmol/L (136-145)
== END 2022-11-09 23:59 | disposition home or self-care (01) ==
LOC: MEDOUTP 11:10
PROVIDERS: PCP Family Medicine; Referring Provider Internal Medicine Nephrology; Visit Provider Internal Medicine Nephrology
DX: N18.4 Chronic kidney disease, stage 4 (severe) (principal); D63.1 Anemia in chronic kidney disease
CPT/HCPCS: 80069; 82728; 83540; 83550; 85027

== ENCOUNTER → 2022-11-23 | Outpatient (CLI) | payer MEDICARE, OTHER, SELFPAY ==
[2022-11-23 11:18] LABS: Absolute Lymphocyte Count 1.36 X10^3/uL (0.83-4.51); Absolute Neutrophil Count 4.4 X10^3/uL (2.0-7.7); Basophil# 0.03 X10^3/uL; Basophil% 0.5 % (0-1); Eosinophil# 0.22 X10^3/uL; Eosinophils% 3.4 % (0-5); Hematocrit 32.5 % (37-47); Lymphocyte # 1.36 X10^3/ul (0.83-4.51); Lymphocyte % 20.7 % (19-41); Mean Corp Hgb Conc 30.8 g/dL (32-36); Mean Corpuscular Hgb 33.1 pg (27.0-32.0); Mean Corpuscular Volume 107.6 fL (81-99); Mean Platelet Vol. 9.9 fl (6.2-12.0); Monocyte# 0.53 X10^3/uL; Monocyte% 8.1 % (0-10); NRBC Flagged by Analyzer 0 % (0-5); Platelet Count 181 K/mm3 (150-450); RBC Distribution Width CV 13.3 % (11.6-14.6); RBC Distribution Width SD 53.2 fl (35.1-43.9); Red Blood Count 3.02 M/mm3 (4.2-5.4); White Blood Count 6.6 K/mm3 (4.4-11.0)
[2022-11-23 11:29] LABS: BUN 59 mg/dL (7-18); BUN/Creat Ratio 30.6 RATIO (10-20); Chloride 114 mmol/L (98-107); Creatinine, Serum 1.93 mg/dL (0.55-1.02); EST Glomerular Filtration Rate 26 mL/min (>60); Est Glom Filt Rate - Afr Amer 32 mL/min (>60); Glucose 146 mg/dL (74-106); Phosphorus 3.3 mg/dL (2.5-4.9); Potassium 4.6 mmol/L (3.5-5.1); Sodium Level 143 mmol/L (136-145)
[2022-11-23 11:42] VITALS: BP 151/62; PULSE 56; RESP 18; TEMP 36.1; O2SAT 96; BMI 39.6
[2022-11-23] MEDS: Epoetin Alfa epbx 10,000 UNITS/ML 10000 UNIT SC (11:46)
== END | disposition home or self-care (01) ==
LOC: MEDOUTP 11:04
PROVIDERS: PCP Family Medicine; Referring Provider Internal Medicine Nephrology; Visit Provider Internal Medicine Nephrology
DX: N18.4 Chronic kidney disease, stage 4 (severe) (principal); D63.1 Anemia in chronic kidney disease
CPT/HCPCS: 36415; 80069; 85025; 96372; Q5106

== ENCOUNTER 2022-12-07 10:58 | Outpatient (CLI) | payer MEDICARE, OTHER, SELFPAY ==
[2022-12-07 11:16] LABS: Absolute Lymphocyte Count 1.53 X10^3/uL (0.83-4.51); Absolute Neutrophil Count 4.2 X10^3/uL (2.0-7.7); Basophil# 0.04 X10^3/uL; Basophil% 0.6 % (0-1); Eosinophil# 0.14 X10^3/uL; Eosinophils% 2.2 % (0-5); Hematocrit 34.5 % (37-47); Hemoglobin 10.5 g/dL (12.0-15.0); Lymphocyte # 1.53 X10^3/ul (0.83-4.51); Lymphocyte % 23.8 % (19-41); Mean Corp Hgb Conc 30.4 g/dL (32-36); Mean Corpuscular Hgb 33.1 pg (27.0-32.0); Mean Corpuscular Volume 108.8 fL (81-99); Mean Platelet Vol. 9.6 fl (6.2-12.0); Monocyte# 0.52 X10^3/uL; Monocyte% 8.1 % (0-10); NRBC Flagged by Analyzer 0 % (0-5); Neutrophil # 4.16 X10^3/uL (2.7-7.7); Neutrophil % 64.8 % (47-70); Platelet Count 224 K/mm3 (150-450); RBC Distribution Width CV 13.7 % (11.6-14.6); Red Blood Count 3.17 M/mm3 (4.2-5.4); White Blood Count 6.4 K/mm3 (4.4-11.0)
[2022-12-07 11:32] VITALS: BP 152/52; PULSE 61; RESP 16; TEMP 36.2; O2SAT 97
[2022-12-07 11:35] LABS: Albumin, Serum 3.1 g/dL (3.2-5.0); BUN 55 mg/dL (7-18); BUN/Creat Ratio 28.2 RATIO (10-20); Chloride 112 mmol/L (98-107); Creatinine, Serum 1.95 mg/dL (0.55-1.02); EST Glomerular Filtration Rate 26 mL/min (>60); Est Glom Filt Rate - Afr Amer 32 mL/min (>60); Ferritin 72 ng/mL (8-252); Glucose 122 mg/dL (74-106); Iron 83 ug/dL (50-170); Iron Binding Capacity,Total 215 ug/dL (250-450); PERCENT IRON SATURATION 38.6 % (15.0-55.0); Phosphorus 3.2 mg/dL (2.5-4.9); Potassium 4.2 mmol/L (3.5-5.1); Sodium Level 143 mmol/L (136-145)
[2022-12-07] MEDS: Epoetin Alfa epbx 10,000 UNITS/ML 10000 UNIT SC (11:58)
== END 2022-12-07 23:59 | disposition home or self-care (01) ==
LOC: MEDOUTP 10:58
PROVIDERS: PCP Family Medicine; Referring Provider Internal Medicine Nephrology; Visit Provider Internal Medicine Nephrology
DX: N18.4 Chronic kidney disease, stage 4 (severe) (principal); D63.1 Anemia in chronic kidney disease
CPT/HCPCS: 36415; 80069; 82728; 83540; 83550; 85025; 96372; Q5106

== ENCOUNTER → 2022-12-21 | Outpatient (CLI) | payer MEDICARE, OTHER, SELFPAY ==
[2022-12-21 11:24] LABS: Absolute Lymphocyte Count 1.32 X10^3/uL (0.83-4.51); Basophil# 0.05 X10^3/uL; Basophil% 0.7 % (0-1); Eosinophil# 0.19 X10^3/uL; Eosinophils% 2.7 % (0-5); Hematocrit 34.4 % (37-47); Hemoglobin 10.7 g/dL (12.0-15.0); Lymphocyte # 1.32 X10^3/ul (0.83-4.51); Lymphocyte % 18.5 % (19-41); Mean Corp Hgb Conc 31.1 g/dL (32-36); Mean Corpuscular Volume 106.2 fL (81-99); Mean Platelet Vol. 9.7 fl (6.2-12.0); Monocyte# 0.57 X10^3/uL; NRBC Flagged by Analyzer 0 % (0-5); Neutrophil # 4.96 X10^3/uL (2.7-7.7); Neutrophil % 69.5 % (47-70); Platelet Count 233 K/mm3 (150-450); RBC Distribution Width CV 13.4 % (11.6-14.6); RBC Distribution Width SD 52.8 fl (35.1-43.9); Red Blood Count 3.24 M/mm3 (4.2-5.4); White Blood Count 7.1 K/mm3 (4.4-11.0)
[2022-12-21 11:31] VITALS: BP 132/51; PULSE 68; RESP 16; TEMP 36.2; O2SAT 97
[2022-12-21 11:37] LABS: BUN 49 mg/dL (7-18); BUN/Creat Ratio 26.8 RATIO (10-20); Chloride 110 mmol/L (98-107); Creatinine, Serum 1.83 mg/dL (0.55-1.02); EST Glomerular Filtration Rate 28 mL/min (>60); Est Glom Filt Rate - Afr Amer 34 mL/min (>60); Glucose 117 mg/dL (74-106); Phosphorus 2.3 mg/dL (2.5-4.9); Potassium 4.3 mmol/L (3.5-5.1); Sodium Level 140 mmol/L (136-145)
[2022-12-21] MEDS: Epoetin Alfa epbx 10,000 UNITS/ML 10000 UNIT SC (11:56)
== END | disposition home or self-care (01) ==
LOC: MEDOUTP 11:04
PROVIDERS: PCP Family Medicine; Referring Provider Internal Medicine Nephrology; Visit Provider Internal Medicine Nephrology
DX: N18.4 Chronic kidney disease, stage 4 (severe) (principal); D63.1 Anemia in chronic kidney disease
CPT/HCPCS: 36415; 80069; 85025; 96372; Q5106

== ENCOUNTER → 2023-01-04 | Outpatient (CLI) | payer MEDICARE, OTHER, SELFPAY ==
[2023-01-04 11:39] LABS: Absolute Lymphocyte Count 1.75 X10^3/uL (0.83-4.51); Basophil# 0.05 X10^3/uL; Basophil% 0.7 % (0-1); Eosinophil# 0.23 X10^3/uL; Hematocrit 35.1 % (37-47); Hemoglobin 10.7 g/dL (12.0-15.0); Lymphocyte # 1.75 X10^3/ul (0.83-4.51); Mean Corp Hgb Conc 30.5 g/dL (32-36); Mean Corpuscular Hgb 34.1 pg (27.0-32.0); Mean Corpuscular Volume 111.8 fL (81-99); Mean Platelet Vol. 9.7 fl (6.2-12.0); Monocyte# 0.59 X10^3/uL; Monocyte% 7.7 % (0-10); NRBC Flagged by Analyzer 0 % (0-5); Neutrophil # 4.97 X10^3/uL (2.7-7.7); Neutrophil % 65.2 % (47-70); Platelet Count 243 K/mm3 (150-450); RBC Distribution Width CV 13.6 % (11.6-14.6); RBC Distribution Width SD 55.9 fl (35.1-43.9); Red Blood Count 3.14 M/mm3 (4.2-5.4); White Blood Count 7.6 K/mm3 (4.4-11.0)
[2023-01-04 11:49] LABS: Protein, Urine (Random) 190.4 mg/dL (<11.9); Protein:Creat Ratio 2812 mg/g CRE (0-200)
[2023-01-04 11:53] LABS: Albumin, Serum 3.1 g/dL (3.2-5.0); BUN 45 mg/dL (7-18); BUN/Creat Ratio 23.8 RATIO (10-20); Chloride 112 mmol/L (98-107); Creatinine, Serum 1.89 mg/dL (0.55-1.02); EST Glomerular Filtration Rate 27 mL/min (>60); Est Glom Filt Rate - Afr Amer 33 mL/min (>60); Glucose 168 mg/dL (74-106); Phosphorus 2.5 mg/dL (2.5-4.9); Sodium Level 141 mmol/L (136-145)
[2023-01-04 11:55] LABS: PTHIN 266.8 pg/mL (18.4-80.1)
[2023-01-04 11:58] LABS: Vitamin D,25 Hydroxy 14.8 ng/mL
[2023-01-04 12:05] VITALS: BP 148/52; PULSE 60; RESP 16; TEMP 36.2; O2SAT 97; BMI 39.6
[2023-01-04] MEDS: Epoetin Alfa epbx 10,000 UNITS/ML 10000 UNIT SC (12:26)
== END | disposition home or self-care (01) ==
LOC: MEDOUTP 11:07
PROVIDERS: Internal Medicine Nephrology; PCP Family Medicine; Referring Provider Internal Medicine Nephrology; Visit Provider Internal Medicine Nephrology
DX: E55.9 Vitamin D deficiency, unspecified (principal); N18.4 Chronic kidney disease, stage 4 (severe); D63.1 Anemia in chronic kidney disease
CPT/HCPCS: 96372; 36415; 80069; 82306; 82570; 83970; 84156; 85025; Q5106

== ENCOUNTER 2023-01-26 11:01 | Outpatient (CLI) | payer MEDICARE, OTHER, SELFPAY ==
[2023-01-26 11:16] LABS: Absolute Lymphocyte Count 1.35 X10^3/uL (0.83-4.51); Absolute Neutrophil Count 4.5 X10^3/uL (2.0-7.7); Basophil# 0.04 X10^3/uL; Basophil% 0.6 % (0-1); Eosinophil# 0.28 X10^3/uL; Eosinophils% 4.1 % (0-5); Hemoglobin 9.5 g/dL (12.0-15.0); Lymphocyte # 1.35 X10^3/ul (0.83-4.51); Lymphocyte % 19.6 % (19-41); Mean Corp Hgb Conc 31.7 g/dL (32-36); Mean Corpuscular Hgb 34.4 pg (27.0-32.0); Mean Corpuscular Volume 108.7 fL (81-99); Mean Platelet Vol. 9.9 fl (6.2-12.0); Monocyte# 0.72 X10^3/uL; Monocyte% 10.4 % (0-10); NRBC Flagged by Analyzer 0 % (0-5); Neutrophil # 4.48 X10^3/uL (2.7-7.7); Platelet Count 211 K/mm3 (150-450); RBC Distribution Width CV 13.1 % (11.6-14.6); RBC Distribution Width SD 52.7 fl (35.1-43.9); Red Blood Count 2.76 M/mm3 (4.2-5.4); White Blood Count 6.9 K/mm3 (4.4-11.0)
[2023-01-26 11:24] VITALS: BP 156/59; PULSE 57; RESP 16; TEMP 36.2; O2SAT 99
[2023-01-26 11:29] LABS: BUN 53 mg/dL (7-18); BUN/Creat Ratio 29.8 RATIO (10-20); Calcium,Total 8.6 mg/dL (8.5-10.1); Chloride 114 mmol/L (98-107); Creatinine, Serum 1.78 mg/dL (0.55-1.02); EST Glomerular Filtration Rate 29 mL/min (>60); Est Glom Filt Rate - Afr Amer 35 mL/min (>60); Glucose 60 mg/dL (74-106); Phosphorus 2.7 mg/dL (2.5-4.9); Sodium Level 144 mmol/L (136-145)
[2023-01-26] MEDS: Epoetin Alfa epbx 10,000 UNITS/ML 10000 UNIT SC (11:53)
== END 2023-01-26 11:02 | disposition home or self-care (01) ==
LOC: MEDOUTP 11:02
PROVIDERS: PCP Family Medicine; Referring Provider Internal Medicine Nephrology; Visit Provider Internal Medicine Nephrology
DX: N18.4 Chronic kidney disease, stage 4 (severe) (principal); D63.1 Anemia in chronic kidney disease
CPT/HCPCS: 36415; 80069; 85025; 96372; Q5106

== ENCOUNTER 2023-02-09 11:00 | Outpatient (CLI) | payer MEDICARE, OTHER, SELFPAY ==
[2023-02-09 11:30] LABS: Absolute Lymphocyte Count 1.55 X10^3/uL (0.83-4.51); Absolute Neutrophil Count 5.7 X10^3/uL (2.0-7.7); Basophil# 0.05 X10^3/uL; Basophil% 0.6 % (0-1); Eosinophil# 0.33 X10^3/uL; Eosinophils% 3.9 % (0-5); Hematocrit 30.9 % (37-47); Hemoglobin 9.5 g/dL (12.0-15.0); Lymphocyte # 1.55 X10^3/ul (0.83-4.51); Lymphocyte % 18.5 % (19-41); Mean Corp Hgb Conc 30.7 g/dL (32-36); Mean Corpuscular Hgb 34.2 pg (27.0-32.0); Mean Corpuscular Volume 111.2 fL (81-99); Mean Platelet Vol. 10.6 fl (6.2-12.0); Monocyte# 0.72 X10^3/uL; Monocyte% 8.6 % (0-10); NRBC Flagged by Analyzer 0 % (0-5); Neutrophil # 5.68 X10^3/uL (2.7-7.7); Neutrophil % 67.9 % (47-70); Platelet Count 229 K/mm3 (150-450); RBC Distribution Width CV 12.7 % (11.6-14.6); RBC Distribution Width SD 51.8 fl (35.1-43.9); Red Blood Count 2.78 M/mm3 (4.2-5.4); White Blood Count 8.4 K/mm3 (4.4-11.0)
[2023-02-09 11:45] VITALS: BP 160/63; PULSE 78; RESP 16; TEMP 36.2; O2SAT 97
[2023-02-09 11:49] LABS: BUN 45 mg/dL (7-18); BUN/Creat Ratio 25.9 RATIO (10-20); Calcium,Total 8.6 mg/dL (8.5-10.1); Chloride 112 mmol/L (98-107); Creatinine, Serum 1.74 mg/dL (0.55-1.02); EST Glomerular Filtration Rate 30 mL/min (>60); Est Glom Filt Rate - Afr Amer 36 mL/min (>60); Ferritin 82 ng/mL (8-252); Glucose 86 mg/dL (74-106); Iron 57 ug/dL (50-170); Iron Binding Capacity,Total 219 ug/dL (250-450); Phosphorus 2.8 mg/dL (2.5-4.9); Sodium Level 144 mmol/L (136-145)
[2023-02-09] MEDS: Epoetin Alfa epbx 10,000 UNITS/ML 10000 UNIT SC (11:54)
== END 2023-02-09 11:01 | disposition home or self-care (01) ==
LOC: MEDOUTP 11:00
PROVIDERS: PCP Family Medicine; Referring Provider Internal Medicine Nephrology; Visit Provider Internal Medicine Nephrology
DX: N18.4 Chronic kidney disease, stage 4 (severe) (principal); D63.1 Anemia in chronic kidney disease
CPT/HCPCS: 36415; 80069; 82728; 83540; 83550; 85025; 96372; Q5106

== ENCOUNTER 2023-02-23 11:03 | Outpatient (CLI) | payer MEDICARE, OTHER, SELFPAY ==
[2023-02-23 11:18] LABS: Hematocrit 30.1 % (37-47); Hemoglobin 9.1 g/dL (12.0-15.0); Mean Corp Hgb Conc 30.2 g/dL (32-36); Mean Corpuscular Hgb 33.3 pg (27.0-32.0); Mean Corpuscular Volume 110.3 fL (81-99); Mean Platelet Vol. 9.5 fl (6.2-12.0); Platelet Count 270 K/mm3 (150-450); RBC Distribution Width CV 12.4 % (11.6-14.6); RBC Distribution Width SD 49.9 fl (35.1-43.9); Red Blood Count 2.73 M/mm3 (4.2-5.4); White Blood Count 8.5 K/mm3 (4.4-11.0)
[2023-02-23 11:32] LABS: Albumin, Serum 2.9 g/dL (3.2-5.0); BUN 46 mg/dL (7-18); BUN/Creat Ratio 27.9 RATIO (10-20); Calcium,Total 8.5 mg/dL (8.5-10.1); Chloride 117 mmol/L (98-107); Creatinine, Serum 1.65 mg/dL (0.55-1.02); EST Glomerular Filtration Rate 32 mL/min (>60); Est Glom Filt Rate - Afr Amer 38 mL/min (>60); Glucose 118 mg/dL (74-106); Phosphorus 2.5 mg/dL (2.5-4.9); Potassium 3.8 mmol/L (3.5-5.1); Sodium Level 144 mmol/L (136-145)
[2023-02-23 11:38] VITALS: BP 158/61; PULSE 66; RESP 16; TEMP 36; O2SAT 94; BMI 39.6
[2023-02-23] MEDS: Epoetin Alfa epbx 10,000 UNITS/ML 10000 UNIT SC (11:57)
== END 2023-02-23 11:04 | disposition home or self-care (01) ==
LOC: MEDOUTP 11:03
PROVIDERS: PCP Family Medicine; Referring Provider Internal Medicine Nephrology; Visit Provider Internal Medicine Nephrology
DX: N18.4 Chronic kidney disease, stage 4 (severe) (principal); D63.1 Anemia in chronic kidney disease
CPT/HCPCS: 36415; 80069; 85027; 96372; Q5106

== ENCOUNTER 2023-03-09 11:03 | Outpatient (CLI) | payer MEDICARE, OTHER, SELFPAY ==
[2023-03-09 11:30] LABS: Absolute Lymphocyte Count 1.35 X10^3/uL (0.83-4.51); Absolute Neutrophil Count 4.5 X10^3/uL (2.0-7.7); Basophil# 0.05 X10^3/uL; Basophil% 0.7 % (0-1); Eosinophil# 0.25 X10^3/uL; Eosinophils% 3.7 % (0-5); Hematocrit 30.5 % (37-47); Hemoglobin 9.2 g/dL (12.0-15.0); Lymphocyte # 1.35 X10^3/ul (0.83-4.51); Lymphocyte % 19.8 % (19-41); Mean Corp Hgb Conc 30.2 g/dL (32-36); Mean Corpuscular Volume 109.3 fL (81-99); Mean Platelet Vol. 9.8 fl (6.2-12.0); Monocyte# 0.66 X10^3/uL; Monocyte% 9.7 % (0-10); NRBC Flagged by Analyzer 0 % (0-5); Neutrophil # 4.49 X10^3/uL (2.7-7.7); Neutrophil % 65.7 % (47-70); Platelet Count 228 K/mm3 (150-450); RBC Distribution Width CV 12.2 % (11.6-14.6); RBC Distribution Width SD 49.1 fl (35.1-43.9); Red Blood Count 2.79 M/mm3 (4.2-5.4); White Blood Count 6.8 K/mm3 (4.4-11.0)
[2023-03-09 11:42] LABS: Albumin, Serum 2.9 g/dL (3.2-5.0); BUN 41 mg/dL (7-18); Calcium,Total 8.6 mg/dL (8.5-10.1); Chloride 114 mmol/L (98-107); Creatinine, Serum 1.71 mg/dL (0.55-1.02); EST Glomerular Filtration Rate 30 mL/min (>60); Est Glom Filt Rate - Afr Amer 37 mL/min (>60); Glucose 98 mg/dL (74-106); Phosphorus 2.9 mg/dL (2.5-4.9); Potassium 3.8 mmol/L (3.5-5.1); Sodium Level 143 mmol/L (136-145)
[2023-03-09 12:01] VITALS: BP 141/46; PULSE 65; RESP 16
[2023-03-09] MEDS: Epoetin Alfa epbx 10,000 UNITS/ML 10000 UNIT SC (12:17)
== END 2023-03-09 11:04 | disposition home or self-care (01) ==
LOC: MEDOUTP 11:03
PROVIDERS: PCP Family Medicine; Referring Provider Internal Medicine Nephrology; Visit Provider Internal Medicine Nephrology
DX: N18.4 Chronic kidney disease, stage 4 (severe) (principal); D63.1 Anemia in chronic kidney disease
CPT/HCPCS: 36415; 80069; 85025; 96372; Q5106

== ENCOUNTER 2023-03-23 11:05 | Outpatient (CLI) | payer MEDICARE, OTHER, SELFPAY ==
[2023-03-23 11:33] LABS: Absolute Lymphocyte Count 1.14 X10^3/uL (0.83-4.51); Absolute Neutrophil Count 6.2 X10^3/uL (2.0-7.7); Basophil# 0.05 X10^3/uL; Basophil% 0.6 % (0-1); Eosinophil# 0.15 X10^3/uL; Eosinophils% 1.8 % (0-5); Hemoglobin 9.8 g/dL (12.0-15.0); Lymphocyte # 1.14 X10^3/ul (0.83-4.51); Lymphocyte % 13.5 % (19-41); Mean Corp Hgb Conc 30.6 g/dL (32-36); Mean Corpuscular Hgb 33.2 pg (27.0-32.0); Mean Corpuscular Volume 108.5 fL (81-99); Mean Platelet Vol. 10.3 fl (6.2-12.0); Monocyte# 0.67 X10^3/uL; Monocyte% 7.9 % (0-10); NRBC Flagged by Analyzer 0 % (0-5); Neutrophil # 6.23 X10^3/uL (2.7-7.7); Neutrophil % 73.5 % (47-70); Platelet Count 263 K/mm3 (150-450); RBC Distribution Width CV 12.4 % (11.6-14.6); RBC Distribution Width SD 49.4 fl (35.1-43.9); Red Blood Count 2.95 M/mm3 (4.2-5.4); White Blood Count 8.5 K/mm3 (4.4-11.0)
[2023-03-23 11:46] LABS: BUN 45 mg/dL (7-18); BUN/Creat Ratio 27.4 RATIO (10-20); Chloride 112 mmol/L (98-107); Creatinine, Serum 1.64 mg/dL (0.55-1.02); EST Glomerular Filtration Rate 32 mL/min (>60); Est Glom Filt Rate - Afr Amer 39 mL/min (>60); Glucose 127 mg/dL (74-106); Phosphorus 2.9 mg/dL (2.5-4.9); Potassium 4.4 mmol/L (3.5-5.1); Sodium Level 144 mmol/L (136-145)
[2023-03-23 11:55] VITALS: BP 145/56; PULSE 62; RESP 16; TEMP 36.3
[2023-03-23] MEDS: Epoetin Alfa epbx 10,000 UNITS/ML 10000 UNIT SC (11:56)
== END 2023-03-23 11:06 | disposition home or self-care (01) ==
LOC: MEDOUTP 11:05
PROVIDERS: PCP Family Medicine; Referring Provider Internal Medicine Nephrology; Visit Provider Internal Medicine Nephrology
DX: N18.4 Chronic kidney disease, stage 4 (severe) (principal); D63.1 Anemia in chronic kidney disease
CPT/HCPCS: 36415; 80069; 85025; 96372; Q5106

== ENCOUNTER 2023-04-06 11:00 | Outpatient (CLI) | payer MEDICARE, OTHER, SELFPAY ==
[2023-04-06 11:27] LABS: Absolute Lymphocyte Count 1.07 X10^3/uL (0.83-4.51); Absolute Neutrophil Count 4.8 X10^3/uL (2.0-7.7); Basophil# 0.03 X10^3/uL; Basophil% 0.5 % (0-1); Eosinophil# 0.24 X10^3/uL; Eosinophils% 3.6 % (0-5); Hematocrit 34.1 % (37-47); Hemoglobin 10.3 g/dL (12.0-15.0); Lymphocyte # 1.07 X10^3/ul (0.83-4.51); Lymphocyte % 16.1 % (19-41); Mean Corp Hgb Conc 30.2 g/dL (32-36); Mean Corpuscular Volume 109.3 fL (81-99); Mean Platelet Vol. 10.5 fl (6.2-12.0); Monocyte# 0.46 X10^3/uL; Monocyte% 6.9 % (0-10); NRBC Flagged by Analyzer 0 % (0-5); Neutrophil # 4.81 X10^3/uL (2.7-7.7); Neutrophil % 72.3 % (47-70); Platelet Count 169 K/mm3 (150-450); RBC Distribution Width CV 13.2 % (11.6-14.6); RBC Distribution Width SD 52.8 fl (35.1-43.9); Red Blood Count 3.12 M/mm3 (4.2-5.4); White Blood Count 6.7 K/mm3 (4.4-11.0)
[2023-04-06 11:40] LABS: Albumin, Serum 2.9 g/dL (3.2-5.0); BUN 46 mg/dL (7-18); BUN/Creat Ratio 26.6 RATIO (10-20); Calcium,Total 8.5 mg/dL (8.5-10.1); Chloride 115 mmol/L (98-107); Creatinine, Serum 1.73 mg/dL (0.55-1.02); EST Glomerular Filtration Rate 30 mL/min (>60); Est Glom Filt Rate - Afr Amer 36 mL/min (>60); Glucose 125 mg/dL (74-106); Phosphorus 3.1 mg/dL (2.5-4.9); Potassium 4.5 mmol/L (3.5-5.1); Sodium Level 144 mmol/L (136-145)
[2023-04-06 11:43] VITALS: BP 143/46; PULSE 63; RESP 16; O2SAT 94; BMI 39.6
[2023-04-06] MEDS: Epoetin Alfa epbx 10,000 UNITS/ML 10000 UNIT SC (12:04)
== END 2023-04-06 11:01 | disposition home or self-care (01) ==
LOC: MEDOUTP 11:00
PROVIDERS: PCP Family Medicine; Referring Provider Internal Medicine Nephrology; Visit Provider Internal Medicine Nephrology
DX: N18.4 Chronic kidney disease, stage 4 (severe) (principal); D63.1 Anemia in chronic kidney disease
CPT/HCPCS: 36415; 80069; 85025; 96372; Q5106

== ENCOUNTER 2023-04-20 11:04 | Outpatient (CLI) | payer MEDICARE, OTHER, SELFPAY ==
[2023-04-20 11:21] LABS: Absolute Lymphocyte Count 1.55 X10^3/uL (0.83-4.51); Absolute Neutrophil Count 4.3 X10^3/uL (2.0-7.7); Basophil# 0.03 X10^3/uL; Basophil% 0.5 % (0-1); Eosinophil# 0.19 X10^3/uL; Eosinophils% 2.9 % (0-5); Hematocrit 32.5 % (37-47); Hemoglobin 10.3 g/dL (12.0-15.0); Lymphocyte # 1.55 X10^3/ul (0.83-4.51); Lymphocyte % 23.6 % (19-41); Mean Corp Hgb Conc 31.7 g/dL (32-36); Mean Corpuscular Hgb 33.9 pg (27.0-32.0); Mean Corpuscular Volume 106.9 fL (81-99); Mean Platelet Vol. 9.3 fl (6.2-12.0); Monocyte% 7.6 % (0-10); NRBC Flagged by Analyzer 0 % (0-5); Neutrophil # 4.28 X10^3/uL (2.7-7.7); Neutrophil % 65.1 % (47-70); Platelet Count 217 K/mm3 (150-450); RBC Distribution Width CV 13.7 % (11.6-14.6); Red Blood Count 3.04 M/mm3 (4.2-5.4); White Blood Count 6.6 K/mm3 (4.4-11.0)
[2023-04-20 11:33] LABS: BUN 53 mg/dL (7-18); BUN/Creat Ratio 29.1 RATIO (10-20); Calcium,Total 8.6 mg/dL (8.5-10.1); Chloride 111 mmol/L (98-107); Creatinine, Serum 1.82 mg/dL (0.55-1.02); EST Glomerular Filtration Rate 28 mL/min (>60); Est Glom Filt Rate - Afr Amer 34 mL/min (>60); Glucose 48 mg/dL (74-106); Phosphorus 2.6 mg/dL (2.5-4.9); Potassium 4.4 mmol/L (3.5-5.1); Sodium Level 143 mmol/L (136-145)
[2023-04-20 11:35] VITALS: BP 129/52; PULSE 74; RESP 16; TEMP 37.1; O2SAT 96; BMI 39.6
[2023-04-20] MEDS: Epoetin Alfa epbx 10,000 UNITS/ML 10000 UNIT SC (11:43)
--- OUTSIDE RECORDS SUMMARY | 2023-04-20 11:46 | XMS RPT_ITS | CCD ---
Author Name Unknown Address [address] [place] [address] Organization [facility] Care Team Providers Care Loan Adviser Name Role Phone Sly Pedersen Unavailable Unavailable Sushil Odonnell Unavailable Unavailable Sushil Odonnell Unavailable Unavailable Jefry Navarrete Unavailable Unavailable Jefry Navarrete Unavailable Unavailable Sly Pedersen Unavailable Unavailable Cristian Phillip Primary Care Provider Cristian Phillip CNP Primary Care Provider ANISH DIMAS Attending Unavailable CRISTIAN PHILLIP Primary Care Unavailable CRISTIAN PHILLIP Primary Care Unavailable CHANDU ORTIZ Admitting Unavailab MILAD De La Cruz Attending Unavailab Cristian Orr CNP Primary Care Provider Cristian Phillip CNP Primary Care Provider CRISTIAN PHILLIP Primary Care Unavailable ROMARIO ANDREWS Attending Unavaila CRISTIAN Rosado Primary Care Unavailable ROMARIO ANDREWS Attending Unavaila CRISTIAN Rosado Primary Care Unavailable ROMARIO ANDREWS Attending Unavaila CRISTIAN Rosado Primary Care Unavailable ROMARIO ANDREWS Attending Unavaila CRISTIAN Rosado Primary Care Unavailable ROMARIO ANDREWS Attending Unavaila ble Allergies Allergy Classification Reported Allergen(s) Allergy Type Date of Onset Reaction(s) Facility Iodine (and Iodine containting drugs) (2 sources) Iodine; Translations: [IODINE] Drug Allergy 1 Hives [facility] Penicillins (antibiotic) (2 sources) Penicillins; Translations: [PENICILLINS] Drug Allergy 9 [facility] (7 sources) Penicillins; Translations: [penicillins] Propensity to adverse reactions to drug (disorder) 9 [facility] Rep[facility] (6 sources) Iodine; Translations: [IODINE] Drug Allergy 1 Hives, Unknown [facility] (3 sources) Penicillin; Translations: [PENICILLIN] Drug Allergy 2 [facility] Medications Current Medications Medication Drug Class(es) Dates Sig (Normalized) Sig (Original) aspirin 81 mg chewable tablet (7 sources) Platelet Aggregation Inhibitor, Nonsteroidal Anti-inflammatory Drug Start: 06-21-2013 End: 04-02-2021 aspirin 81 mg chewable tablet Chew and Swallow 1 (one) tablet (81 mg total) daily . 0 06/21/2013 Active ciclopirox 80 mg/ml topical solution (1 source) Start: 05-12-2022 End: 08-10-2022 ciclopirox (Penlac) 8 % solution Apply topically nightly Apply over nail and surrounding skin. Apply daily over previous coat. After seven (7) days, may remove with alcohol and continue cycle. . 6.6 mL 0 05/12/2022 08/10/2022 Active doxazosin 4 mg oral tablet (7 sources) alpha-Adrenergic Fozia Start: 11-21-2020 End: 04-02-2021 take 1 tablet by mouth once daily doxazosin (CARDURA) 4 MG tablet Take 1 (one) tablet (4 mg total) by mouth daily . 0 11/21/2020 Active ergocalciferol 1.25 mg oral capsule (2 sources) Provitamin D2 Compound Start: 01-17-2023 take 1 capsule by mouth every week ergocalciferol (ERGOCALCIFEROL) 1,250 mcg (50,000 unit) capsule TAKE 1 CAPSULE BY MOUTH ONCE A WEEK FOR 90 DAYS 0 01/17/2023 Active furosemide 40 mg oral tablet (6 sources) Loop Diuretic take 1 tablet by mouth once daily furosemide (LASIX) 40 MG tablet Take 1 (one) tablet (40 mg total) by mouth daily . 0 Active insulin detemir 100 unt/ml injectable solution (6 sources) Insulin Analog Start: 11-21-2020 inject 40 [IU] by subcutaneous injection once daily in the morning Levemir U-100 Insulin 100 unit/mL injection Inject 40 (forty) Units under the skin every morning . 0 11/21/2020 Active lisinopril 40 mg oral tablet (3 sources) Angiotensin Converting Enzyme Inhibitor Start: 11-14-2022 take 1 tablet by mouth once daily lisinopriL (PRINIVIL,ZESTRIL) 40 MG tablet Take 1 (one) tablet (40 mg total) by mouth daily . 0 11/14/2022 Active Completed/Discontinued Medications Medication Drug Class(es) Dates Sig (Normalized) Sig (Original) acetaminophen 325 mg oral tablet (1 source) Start: 04-01-2021 End: 04-02-2021 take 1 tablet by mouth every four hours as needed for pain and headache 650 mg, Oral, Every 4 hours PRN, mild pain, fever 100.4 F or greater, headaches, Starting on Mon04/01/21 at 0550 atorvastatin 40 mg oral tablet (7 sources) HMG-CoA Reductase Inhibitor Start: 04-01-2021 End: 04-02-2021 take 40 mg by mouth once daily 40 mg, Oral, Daily, First dose on Mon04/01/21 at 0900 calcitriol 0.76604 mg oral capsule (7 sources) Vitamin D3 Analog Start: 04-02-2021 End: 04-02-2021 take 0.25 ug by mouth three times weekly 0.25 mcg, Oral, 3 times weekly (Once per day on Mon), First dose on Mon04/02/21 at 0900 calcium chloride 0.0014 meq/ml / potassium chloride 0.004 meq/ml / sodium chloride 0.103 meq/ml / sodium lactate 0.028 meq/ml injectable solution (1 source) Start: 04-01-2021 End: 04-02-2021 lactated Ringers infusion 24 hr dilTIAZem hydrochloride 300 mg extended release oral tablet (7 sources) Calcium Channel Fozia Start: 04-01-2021 End: 04-02-2021 take 300 mg by mouth once daily 300 mg, Oral, Daily, First dose on Mon04/01/21 at 0900 DO NOT CRUSH OR CHEW. Problems Active Problems Problem Classification Problem Date Documented Date Episodic/Chronic Acquired foot deformities (5 sources) Acquired hammer toes of bilateral feet; Translations: [Other hammer toe(s) (acquired), right foot] Onset: 05-12-2022 Chronic Chronic kidney disease (1 source) Chronic kidney disease; Translations: [Chronic kidney disease, unspecified] Chronic Diabetes mellitus with complications (6 sources) Mononeuropathy due to type 2 diabetes mellitus; Translations: [Type 2 diabetes mellitus with diabetic mononeuropathy] Onset: 02-16-2023 Chronic External cause codes: Fall (1 source) Fall; Translations: [Fall, initial encounter] Mycoses (6 sources) Onychomycosis; Translations: [Tinea unguium] Onset: 02-16-2023 Episodic Nausea and vomiting (1 source) Nausea, vomiting and diarrhea; Translations: [Nausea with vomiting, unspecified] Episodic Nonspecific chest pain (1 source) Chest wall pain; Translations: [Chest wall pain] Episodic Other injuries and conditions due to external causes (1 source) Closed injury of head; Translations: [Closed head injury, initial encounter] Episodic Other skin disorders (1 source) Foot callus; Translations: [Corns and callosities] Episodic Past or Other Problems Problem Classification Problem Date Documented Da te Episodic/Chronic Acquired foot deformities (5 sources) Hallux valgus; Translations: [Bunion of right foot] Onset: 05-12-2022 Episodic Intestinal obstruction without hernia (6 sources) Intestinal obstruction co-occurrent and due to decreased peristalsis; Translations: [Ileus, unspecified] Onset: 04-01-2021 Episodic Other skin disorders (2 sources) Corns and callosities; Translations: [Corns and callosities] Onset: 05-12-2022 Episodic Varicose veins of lower extremity (3 sources) Varicose veins of lower limb co-occurrent with edema; Translations: [Varicose veins of bilateral lower extremities with other complications] Onset: 05-12-2022 Episodic Results Test Name Value Interpretation Reference Range Facil ity Vital Signs Date Time Vital Sign Value Performing Clinician Jonathani lity 02-16-2023 16:51-0400 Body temperature 98.1 [degF] Romario Andrews DPM Work Phone: [facility] 02-16-2023 16:51-0400 Diastolic blood pressure 59 mm[Hg] Romario Andrews DPM Work Phone: [facility] 02-16-2023 16:51-0400 Heart rate 75 /min Romario Andrews DPM Work Phone: [facility] 02-16-2023 16:51-0400 Systolic blood pressure 134 mm[Hg] Romarionaomie FerrerAndrews DPM Work Phone: [facility] 11-17-2022 16:30-0500 Diastolic blood pressure 72 mm[Hg] Romarionaomie FerrerAndrews DPM Work Phone: [facility] 11-17-2022 16:30-0500 Heart rate 72 /min Romarionaomie FerrerAndrews DPM Work Phone: [facility] 11-17-2022 16:30-0500 Systolic blood pressure 178 mm[Hg] Romarionaomie FerrerAndrews DPM Work Phone: [facility] 11-17-2022 16:17-0500 Body temperature 98.6 [degF] Romario Andrews DPM Work Phone: [facility] 05-12-2022 14:55-0400 Diastolic blood pressure 71 mm[Hg] Romarionaomie FerrerAndrews DPM Work Phone: [facility] 05-12-2022 14:55-0400 Heart rate 53 /min Romarionaomie FerrerAndrews DPM Work Phone: [facility] 05-12-2022 14:55-0400 Systolic blood pressure 177 mm[Hg] Romario Andrews DPM Work Phone: [facility] 05-12-2022 14:48-0400 Body temperature 99.19 [degF] Romario Andrews DPM Work Phone: [facility] 04-02-2021 12:21-0400 Diastolic blood pressure 66 mm[Hg] Fredy Horton MD Work Phone: [facility] 04-02-2021 12:21-0400 Systolic blood pressure 119 mm[Hg] Fredy Horton MD Work Phone: [facility] 04-02-2021 07:22-0400 Body temperature 98.01 [degF] Fredy Horton MD Work Phone: [facility] 04-02-2021 07:22-0400 Heart rate 54 /min Fredy Horton MD Work Phone: [facility] 04-02-2021 07:22-0400 Respiratory rate 14 /min Fredy Horton MD Work Phone: [facility] 04-02-2021 07:22-0400 SaO2% (BldA) [Mass fraction] 94 % Fredy Horton MD Work Phone: [facility] 04-01-2021 01:14-0400 Body height 167.6 cm Fredy Horton MD Work Phone: [facility] 04-01-2021 01:14-0400 Body mass index (BMI) [Ratio] 40.67 kg/m2 Fredy Horton MD Work Phone: [facility] 04-01-2021 01:14-0400 Body weight 114.31 kg Fredy Horton MD Work Phone: [facility] 12-12-2020 14:00-0400 BP Diastolic 60 mm[Hg] [facility] 12-12-2020 14:00-0400 BP Systolic 157 mm[Hg] [facility] 12-12-2020 14:00-0400 Pulse Oximetry 97 % [facility] 12-12-2020 12:02-0400 BMI (Body Mass Index) 41.97 kg/m2 [facility] 12-12-2020 12:02-0400 Body Temperature 97.59 [degF] [facility] 12-12-2020 12:02-0400 Body weight 117.94 kg [facility] 12-12-2020 12:02-0400 Height 167.6 cm [facility] 12-12-2020 12:02-0400 Pulse (Heart Rate) 67 /min [facility] 12-12-2020 12:02-0400 Respiratory Rate 16 /min [facility] Encounters Encounter Date Encounter Type Care Provider Facility Start: 02-16-2023 End: 02-16-20[facility] Start: 02-16-2023 End: 02-16-2023 Patient encounter procedure Romario Andrews DPM Work Phone: [facility] Procedures Date Procedure Procedure Detail Performing Clinician Start: 05-12-2022 ANTIEMBOLISM STOCKINGS Romario Andrews DPM Work Phone: Start: 04-02-2021 Glucose measurement Chas Ortiz MD Work Phone: Start: 04-02-2021 Glucose measurement Chas Ortiz MD Work Phone: Start: 04-02-2021 Comprehensive metabolic panel Imeldamelissa WilkersonChristydangelo Hirsch CNP Work Phone: Start: 04-01-2021 Urnls dip stick/tabl et reagent auto microscopy Fredy Horton MD Work Phone: Start: 04-01-2021 Glucose measurement Chas Ortiz MD Work Phone: Start: 04-01-2021 Glucose measurement Chas Ortiz MD Work Phone: Start: 04-01-2021 End: 04-01-2021 Glucose measurement Chandu trinh MD Work Phone: Start: 04-01-2021 Electrocardiogram Provi geovani Not In System Start: 04-01-2021 Assay of lactate Fredy Horton MD Work Phone: Start: 04-01-2021 SARS-CoV-2 (COVID-19 ) RdRp gene [Presence] in Respiratory specimen by [place] with probe detection rFedy Horton MD Work Phone: Start: 04-01-2021 Ct abdomen & pelvis w/o contrast material Fredy Horton MD Work Phone: Start: 04-01-2021 Ecg routine ecg w/le ast 12 lds w/i&r Fredy Horton MD Work Phone: Start: 04-01-2021 Smr prim src gram/gi emsa stain bct fungi/cell Fredy Horton MD Work Phone: Start: 04-01-2021 Assay of lipase Fredy Ibarra MD Work Phone: Start: 04-01-2021 Hepatic function panel Fredy Horton MD Work Phone: Start: 04-01-2021 LAVENDER TOP Fredy Horton MD Work Phone: Start: 04-01-2021 MINT GREEN TOP Fredy Yoo MD Work Phone: Start: 04-01-2021 RAINBOW DRAW Fredy Horton MD Work Phone: Start: 04-01-2021 Glucose measurement [facility] Start: 12-12-2020 End: 12-12-2020 Ct thoracic spine w/o contrast material Anish Dimas Work Phone: Start: 12-12-2020 CT of chest, abdomen and pelvis without contrast Anish Dimas Work Phone: Start: 12-12-2020 CT cervical spine wi thout contrast Anish Dimas Work Phone: Start: 12-12-2020 CT of head without contrast Anish Dimas Work Phone: Start: 12-12-2020 LIGHT BLUE TOP Anish Pa tel Work Phone: Start: 12-12-2020 RAINBOW DRAW Anish Howard l Work Phone: Start: 12-12-2020 Basic metabolic 1998 panel - Serum or Plasma Anish Dimas Work Phone: Start: 12-12-2020 Complete blood count with white cell differential, automated Anish Dimas Work Phone: Start: 12-12-2020 Complete blood count with white cell differential, manual Anish Dimas Work Phone: Plan of Treatment Date Care Activity Detail Author Start: 04-16-2028 Tetanus vaccination Tetanus: Every 10yrs [facility] Start: 05-25-2023 End: 05-25-2023 Patient encounter procedure 05/25/2023 4:15 PM EDT Office Visit [facility] Physician [facility] [address] [place] [address] Romario Andrews, DPM [address] [place] [address] [facility] Start: 02-16-2023 End: 02-16-2023 Patient encounter procedure 02/16/2023 Office Visit Podiatry Romario Andrews, SOFIYA [address] [place] [address] [facility] Start: 08-04-2022 End: 08-04-2022 Patient encounter procedure 08/04/2022 Office Visit Podiatry Romario Andrews, SOFIYA [address] [place] [address] [facility] Start: 05-19-2022 Influenza vaccination Sequential Influenza Vaccine (#1) [facility] Start: 12-18-2021 COVID-19 Vaccine (4 - Booster for Moderna series) COVID-19 Vaccine (4 - Booster for Moderna series) [facility] Start: 10-14-2021 COVID-19 Vaccine (4 - Booster for Moderna series) COVID-19 Vaccine (4 - Booster for Moderna series) [facility] Start: 05-19-2021 Influenza vaccination Sequential Influenza Vaccine (#1) [facility] Start: 09-02-2020 Pneumococcal vaccination Pneumococcal Vaccine Age 65+ (2 of 2 - PCV13) [facility] Start: 05-19-2020 Influenza vaccination given Sequential Influenza Vaccine (#1) [facility] Start: 04-16-2019 Pneumococcal Vaccine: Age 65+ (2 - PPSV23 or PCV20) Pneumococcal Vaccine: Age 65+ (2 - PPSV23 or PCV20) [facility] Start: 01-06-2005 Fall risk assessment Falls Risk Assessment [facility] Start: 01-06-1990 Administration of herpes zoster vaccine Zoster Vaccines (1 of 2) [facility] Start: 01-06-1959 Administration of herpes zoster vaccine Zoster Vaccines (1 of 2) [facility] Start: 1956 COVID-19 Vaccine (1) COVID-19 Vaccine (1) [facility] Start: 1952 Adolescent depression screening assessment Depression Screening (PHQ9) [facility] Start: 1952 Depression screening using PHQ-9 (Patient Health Questionnaire 9) score [facility] Start: 01-06-1950 Diabetic foot examination Foot Exam [facility] Start: 01-06-1950 Glaucoma screening Ophthalmology Exam [facility] Start: 01-06-1950 Microalbumin measurement, urine, quantitative Urine Microalbumin [facility] Start: 01-06-1950 Ophthalmic examination and evaluation Ophthalmology Exam [facility] Start: 01-06-1950 Urine screening for protein Urine Microalbumin [facility] Start: 01-06-1946 Pneumococcal Vaccine: Age 65+ (1 of 4 - PCV13) Pneumococcal Vaccine: Age 65+ (1 of 4 - PCV13) [facility] Start: 01-06-1943 History and physical examination, annual for health maintenance Wellness Visit [facility] Start: 1940 Fall risk assessment Falls Risk Assessment [facility] Start: 1940 Hemoglobin A1c measurement A1C [facility] Start: 1940 Screening for osteoporosis Dexa Scan [facility] Start: 1940 Screening mammography Mammogram [facility] Start: 1940 Tetanus vaccination Tetanus: Every 10yrs [facility] Payers Date Payer Category Payer Unknown 2014 Unknown 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 [id number] 2014-Present [id number] 2014 Unknown [id number] 2004 Medicare 2004 Medicare MEDICARE MEDICAR E PART A & B [id number] 2004-Present [place] [id number] 2004 Medicare [id number] 1940 Unknown [id number] 1940 Unknown [id number] 1940 Unknown [id number] 1940 Unknown [id number] 1940 Unknown [id number] 1940 Unknown [id number] 1940 Unknown [id number] 1940 Unknown [id number] 1940 Unknown [id number] Social History Date Type Detail Facility Start: 12-12-2020 End: 05-12-2022 Tobacco smoking status MEIS Never smoker [facility] Start: 12-12-2020 End: 05-12-2022 Tobacco use and exposure Never used [facility] Start: 12-12-2020 End: 02-16-2023 Alcohol intake Lifetime non-drinker (finding) [facility] Start: 12-12-2020 History SDOH Alcohol Frequency 1 [facility] Start: 1940 [facility] Start: 05-02-2022 End: 11-17-2022 Exposure to SARS-CoV-2 (event) Not sure [facility] Start: 12-12-2020 End: 11-17-2022 History of Social function [facility] Start: 12-12-2020 End: 11-17-2022 Alcohol Use Disorder Identification Test - Consumption [AUDIT-C] [facility] How often to you hav e a drink containing alcohol? Never [facility] Average Number of Drinks Not on file [facility] Start: 12-12-2020 Gender identity Identifies as female gender (finding) [facility] Start: 04-01-2021 Sexual orientation Heterosexual (cherry huang) [facility] Clinical Notes 04-01-2021 to 02-16-2023 Romario Andrews, SOFIYA - 02/16/2023 4:46 PM Romario Norton, SOFIYA - 02/16/2023 4:46 PM Anabella Andrews DPM - 11/17/2022 4:33 PM Monserrat Muniz RN - 04/01/2021 3:04 AM EDT Note Date & Type Note Facility 02-16-2023 History of Presen t illness Narrative Subjective :Pt is a 83 y.o. female seen at the office complaining of fungal toe nails . Pt is wanting treatment today. Patient is a diabetic with history of little neuropathy in both feet. Objective: Int: Toe nails 1, 2, 3, or 5both feet Thick, yellow, dystrophic, crumbly , painful with subungal debris Neuro: Diminished bilateral Vas: DP - palpable, both feetPTpalpable, both feet Assessment: Onychomycosis of toenails 1-3 and 5 bilateral feet. Diabetic neuropathy of both feet. Plan: I debrided toe nails 1-5 amy feet with nail nippers. I also discussed treatment for the nail fungus which includes topical , oral or surgical removal. RTC 3 months. Procedures documented in this encounter [facility] 02-16-2023 History of Presen t illness Narrative Subjective :Pt is a 83 y.o. female seen at the office complaining of fungal toe nails . Pt is wanting treatment today. Patient is a diabetic with history of little neuropathy in both feet. Objective: Int: Toe nails 1, 2, 3, or 5both feet Thick, yellow, dystrophic, crumbly , painful with subungal debris Neuro: Diminished bilateral Vas: DP - palpable, both feetPTpalpable, both feet Assessment: Onychomycosis of toenails 1-3 and 5 bilateral feet. Diabetic neuropathy of both feet. Plan: I debrided toe nails 1-5 amy feet with nail nippers. I also discussed treatment for the nail fungus which includes topical , oral or surgical removal. RTC 3 months. Procedures documented in this encounter [facility] 11-17-2022 History of Presen t illness Narrative Subjective :Pt is a 82 y.o. female seen at the office complaining of fungal toe nails . Pt is wanting treatment today.Pt is using penlac with improvements Objective: Int: Toe nails 1, 2, 3, or 5both feet Thick, yellow, dystrophic, crumbly , painful with subungal debris Neuro:decreased toes amy Vas: DP - palpable, both feetPTpalpable, both feet Assessment: greater than 6 fungal toe nails Plan: I debrided toe nails 1-5 amy feet with nail nippers. I also discussed treatment for the nail fungus which includes topical , oral or surgical removal. Cont with penlac RTC 3 months. Procedures documented in this encounter [facility] 05-12-2022 History of Presen t illness Narrative Patient Name: Mony Worley MR #: [id number] : 1940 Gender: female. Date of Consultation: 05/12/2022. Author: Romario Andrews, MANUEL Physicians: Cristian Phillip CNP (Family); No ref. provider found (Referring) History of Present Illness: Mony Worley is a 82 y.o. female who follows up with onychomycosis of all the toenails of both feet. Patient is complaining of calluses of the second toes of both feet. Patient is a diabetic with history of neuropathy symptoms as well as swelling in the lower legs with chronic venous hemosiderin deposits. Assessment and Plan: 1. 1. Onychomycosis 2. 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 Acquired bilateral hammer toes Diabetic Shoes 4. Bilateral bunions Diabetic Shoes 5. Foot callus 6. Varicose veins of leg with swelling, bilateral Plan: Patient was seen and evaluated. I discussed the findings with the patient. Patient was given opportunity to ask questions. Patient elects to have the following treatment as follows: I debrided toenails 1 through 5 bilateral feet with nail nippers. I also debrided the calluses off the second toes of both feet with a #15 blade handle. I prescribed Penlac to be applied to the fungal toenails daily to be removed every 7 days with alcohol or acetone. I have also prescribed 1 pair of knee-high compression hose to be worn during wake hours. I have given patient a prescription for 1 pair of diabetic extra-depth shoes with 3 pairs of feet multiple liners. Reappoint in 3 months Lower Extremity: Integumentary: Toenails 1 through 5 are long thick yellow dystrophic crumbly with subungual debris. Patient had calluses on the tips of the second toes bilateral feet. Musculoskeletal-patient has contracted second toes of both feet. Patient had a lateral deviated hallux with a medial bony prominence the first metatarsal head bilateral. Neurological: Diminished bilateral feet with a Wishram Carmina 5.0 7 monofilament. Patient cannot feel a tuning fork. Vascular: DP PT pulses are palpable bilateral feet. * No LDAs found * BP (!) 177/71 (BP Location: Right arm, Patient Position: Sitting, BP Cuff Size: X-large Adult) Pulse (!) 53 Temp 99.2 F (37.3 C) (Infrared) Allergy Information: I have reviewed the patient's allergies. Iodine and Penicillins Home Medications: Current Outpatient Medications Medication Sig Dispense Refill atorvastatin (LIPITOR) 40 MG tablet Take 40 mg by mouth every evening . diltiazem (CARDIZEM CD) 300 MG 24 hr capsule Take 300 mg by mouth daily . doxazosin (CARDURA) 4 MG tablet Take 4 mg by mouth daily . furosemide (LASIX) 40 MG tablet Take 40 mg by mouth daily . insulin aspart U-100 (NovoLOG) 100 unit/mL injection Inject 18 Units under the skin daily with dinner . insulin aspart U-100 (NovoLOG) 100 unit/mL injection Inject 10 Units under the skin 2 (two) times a day With breakfast and lunch . Levemir U-100 Insulin 100 unit/mL injection Inject 40 Units under the skin every morning . potassium chloride 10 MEQ CR tablet Take 10 mEq by mouth daily . quinapriL (ACCUPRIL) 40 MG tablet Take 40 mg by mouth every evening . aspirin 81 mg chewable tablet Chew and Swallow 81 mg daily . calcitrioL (ROCALTROL) 0.25 MCG capsule Take 0.25 mcg by mouth Monday, Monday, Monday . ciclopirox (Penlac) 8 % solution Apply topically nightly Apply over nail and surrounding skin. Apply daily over previous coat. After seven (7) days, may remove with alcohol and continue cycle. . 6.6 mL 0 No current facility-administered medications for this visit. Review of Systems: The following system(s) were reviewed and pertinent findings noted: Pertinent positives and negatives as mentioned above, otherwise full review of systems is negative unless mentioned below: Patient currently denies Nausea/Vomiting/Fever/Chills/Shortness of Breath/Chest Pain. Medical History: Past Medical History: Diagnosis Date Diabetes mellitus (HCC) Hypertension Renal failure, chronic, stage 4 (severe) (HCC) . Surgical History: Past Surgical History: Procedure Laterality Date CHOLECYSTECTOMY PARATHYROID ADENOMA EXCISION . Social History: Social History Socioeconomic History Marital status: Tobacco Use Smoking status: Never Smokeless tobacco: Never Vaping Use Vaping Use: Never used Substance and Sexual Activity Alcohol use: Never Drug use: Never Family History: History reviewed. No pertinent family history. Electronically signed by the above physician 05/12/22 documented in this encounter [facility] 04-01-2021 Miscellaneous Notes Problem: Actual or potential alteration in health Goal: Absence of healthcare acquired conditions Outcome: Partially Met Goal: Knowledge of Interdisciplinary Plan of Care Outcome: Partially Met Goal: Knowledge of Enviroment Outcome: Partially Met Problem: Pain Goal: Manage acute pain Outcome: Partially Met Goal: Manage chronic pain Outcome: Partially Met Goal: Reduced pain sensation Outcome: Partially Met Goal: Achievement of comfort function goal Outcome: Partially Met Problem: Falls, Risk of Goal: Absence of falls Outcome: Partially Met Poc intiated Problem: Actual or potential alteration in health Goal: Absence of healthcare acquired conditions Outcome: Partially Met Goal: Knowledge of Interdisciplinary Plan of Care Outcome: Partially Met Goal: Knowledge of Enviroment Outcome: Partially Met Problem: Pain Goal: Manage acute pain Outcome: Partially Met Goal: Manage chronic pain Outcome: Partially Met Goal: Reduced pain sensation Outcome: Partially Met Goal: Achievement of comfort function goal Outcome: Partially Met Problem: Falls, Risk of Goal: Absence of falls Outcome: Partially Met Associated Order(s): EKG 12-lead EKG 12-lead Date/Time: 04/01/2021 3:02 AM Performed by: Fredy Horton MD Authorized by: Fredy Horton MD Interpreted by ED attending physician Comparison: not compared with previous ECG Rhythm: sinus rhythm BPM: 77 Ectopy: atrial premature contractions Conduction: conduction normal ST Segments: ST segments normal normal CO interval normal QRS interval normal QT interval Clinical impression: non-specific ECG documented in this encounter [facility] 04-01-2021 History and physi alessandra note [facility] Medicine Inpatient H&P 04/01/2021 Imelda Hirsch CNP [facility] Patient: Mony Worley Date of : 1940 (81 y.o.) PCP: Cristian Phillip CNP ASSESSMENT/PLAN: Mony Worley 81 y.o. female with history of HTN, HLD, CKD Stage IV, DM Type II Principal Problem: Ileus (HCC) PLAN: Admit to Observation Ileus - CT A/P on 03/29: mild adynamic ileus; no bowel obstruction - clear liquid diet adv as tolerated to diabetic diet - anti-emetics PRN - LR at 100 ml/hr - C Diff stool pending Leukocytosis - afebrile - repeat labs - check UA - if develops fever, consider cultures and antibiotics Hypokalemia - replace - repeat labs. DM Type II - continue home insulin - Accuchecks AC/HS with ISS coverage HTN - continue home meds CKD Stage IV - creatinine appears at baseline. DVT Prophylaxis Please see orders SUBJECTIVE: Chief Complaint/Reason for Visit: nausea, vomiting, diarrhea History of Present Illness: Mony Worley is a 81 y.o. female presenting from ED with complaint of nausea, vomiting, diarrhea. The patient states that around 10pm she developed an episode of nausea, vomiting, abdominal discomfort and weakness. She denies fever, chills, cough, chest pain, shortness of breath, dysuria. Prior to this event, she states she was at her baseline. She denies recent narcotic pain medication use, antibiotic use, or constipation. Her last bowel movement was yesterday and was her norm. Upon evaluation, she had routine labs drawn which showed WBC 13, creatinine 1.9. CT A/P showed an adynamic ileus without obstruction. She was referred for admission for further management. Past Medical History: Diagnosis Date Diabetes mellitus (HCC) Hypertension Past Surgical History: Procedure Laterality Date CHOLECYSTECTOMY PARATHYROID ADENOMA EXCISION Allergies: Iodine and Penicillins Home Medications: Outpatient Medications as of 04/01/2021 Medication Sig aspirin 81 mg chewable tablet Chew and Swallow 81 mg daily . atorvastatin (LIPITOR) 40 MG tablet Take 40 mg by mouth daily . calcitrioL (ROCALTROL) 0.25 MCG capsule Take 0.25 mcg by mouth Monday, Monday, Monday . diltiazem (CARDIZEM CD) 300 MG 24 hr capsule Take 300 mg by mouth daily . doxazosin (CARDURA) 4 MG tablet Take 4 mg by mouth daily . furosemide (LASIX) 40 MG tablet Take 40 mg by mouth daily . insulin aspart U-100 (NovoLOG) 100 unit/mL injection Inject 18 Units under the skin daily with dinner . insulin aspart U-100 (NovoLOG) 100 unit/mL injection Inject 10 Units under the skin 2 (two) times a day With breakfast and lunch . Levemir U-100 Insulin 100 unit/mL injection Inject 40 Units under the skin every morning . potassium chloride 10 MEQ CR tablet Take 10 mEq by mouth daily . quinapriL (ACCUPRIL) 40 MG tablet Take 40 mg by mouth every evening . History reviewed. No pertinent family history. Social History Tobacco Use Smoking Status Never Smoker Smokeless Tobacco Never Used Review of Systems: All other systems reviewed and negative other than HPI OBJECTIVE: Physical Examination: BP (!) 177/58 Pulse 73 Temp 98.3 F (36.8 C) (Oral) Resp (!) 22 Ht 5' 6 Wt 114.3 kg (252 lb) SpO2 96% BMI 40.67 kg/m General Appearance: Alert and oriented x 3, In no apparent distress HEENT: Head: Normocephalic, no lesions, without obvious abnormality. Pharynx: Dental Hygiene adequate. Normal buccal mucosa. Normal pharynx. Neck: nontender, full range of motion, no mass, no focal lymphadenopathy Respiratory: clear to auscultation bilaterally, no wheezes or crackles, no tachypnea or accessory muscle use Cardiovascular: regular rate and rhythm, no murmur, brisk capillary refill Abdominal: soft, nontender, nondistended, no hepatosplenomegaly, no mass, normal bowel sounds Skin: no rashes, no jaundice. Normal coloration and turgor. No rashes. Neurological: Grossly normal motor and sensory exam. No focal deficits. Musculoskeletal: No joint tenderness, deformity or swelling. Psychiatric: Alert, oriented x 3. Normal mood and affect. Laboratory and Additional Data Reviewed: Reviewed 04/01/21 5:27 AM: Laboratory, Radiology and Medications Recent Results (from the past 24 hour(s)) POC Glucose Collection Time: 04/01/21 1:20 AM Result Value Ref Range Glucose 133 (H) 65 - 99 mg/dL Lavender Top Collection Time: 04/01/21 1:25 AM Result Value Ref Range Extra Tube Hold for add-ons. Mint Green Top Collection Time: 04/01/21 1:25 AM Result Value Ref Range Extra Tube Hold for add-ons. Chem 7 Collection Time: 04/01/21 1:25 AM Result Value Ref Range Sodium 141 135 - 145 mmol/L Potassium 3.5 3.5 - 5.1 mmol/L Chloride 111 (H) 98 - 108 mmol/L Bicarbonate 20 (L) 21 - 32 mmol/L Creatinine 1.97 (H) 0.60 - 1.20 mg/dL Glucose 125 (H) 65 - 99 mg/dL BUN 63 (H) 8 - 25 mg/dL eGFR 23 (L) >=60 mL/min/1.73 m2 BUN/Creatinine Ratio 32.0 (H) 10.0 - 20.0 Anion Gap 14 10 - 20 mmol/L Hepatic Function Panel (LFT) Collection Time: 04/01/21 1:25 AM Result Value Ref Range Total Protein 6.6 6.0 - 8.0 g/dL Albumin 3.4 3.2 - 5.2 g/dL Total Bilirubin 0.5 0.0 - 1.3 mg/dL Bilirubin, Direct 0.1 0.0 - 0.4 mg/dL Alkaline Phosphatase 85 40 - 150 U/L AST 16 0 - 45 U/L ALT 19 14 - 65 U/L Lipase Collection Time: 04/01/21 1:25 AM Result Value Ref Range Lipase 79 73 - 393 U/L CBC Auto Differential Collection Time: 04/01/21 1:25 AM Result Value Ref Range WBC 13.24 (H) 4.50 - 11.00 K/mcL RBC 3.68 (L) 4.00 - 5.20 M/mcL Hemoglobin 11.7 (L) 12.0 - 16.0 g/dL Hematocrit 37.7 36.0 - 46.0 % MCV 102.4 (H) 80.0 - 100.0 fL MCH 31.8 26.0 - 34.0 pg MCHC 31.0 31.0 - 37.0 g/dL Platelets 258 150 - 400 K/mcL RDW - CV 14.4 11.6 - 14.8 % MPV 10.9 9.4 - 12.4 fL Neutrophils 84.2 % Lymphocytes 7.6 % Monocytes 6.6 % Eosinophils 0.9 % Basophils 0.2 % IG Percent 0.50 % Neutrophils Abs 11.13 (H) 1.70 - 7.00 K/mcL Lymphocytes Abs 1.01 0.90 - 4.00 K/mcL Monocytes Abs 0.88 0.30 - 0.90 K/mcL Eosinophils Abs 0.12 0.00 - 0.50 K/mcL Basophils Abs 0.03 0.00 - 0.30 K/mcL IG Absolute 0.07 0.00 - 0.30 K/mcL Nucleated RBC 0.0 % Nucleated RBC Abs 0.00 0.00 - 0.00 K/mcL EKG: Reviewed 04/01/21 5:27 AM CULTURES: Reviewed 04/01/21 5:27 AM Radiology/Imaging: Reviewed 04/01/21 5:27 AM EKG 12-lead Result Date: 04/01/2021 Fredy Horton MD 04/01/2021 3:02 AM EKG 12-lead Date/Time: 04/01/2021 3:02 AM Performed by: Fredy Horton MD Authorized by: Fredy Horton MD Interpreted by ED attending physician Comparison: not compared with previous ECG Rhythm: sinus rhythm BPM: 77 Ectopy: atrial premature contractions Conduction: conduction normal ST Segments: ST segments normal normal CO interval normal QRS interval normal QT interval Clinical impression: non-specific ECG CT Abdomen Pelvis Without Contrast Result Date: 04/01/2021 EXAMINATION: CT ABDOMEN PELVIS WITHOUT CONTRAST HISTORY: ORDERING SYSTEM PROVIDED HISTORY: Nausea/vomiting, TECHNOLOGIST PROVIDED HISTORY: Illness/Other Reason for exam: nausea, vomiting Encounter Type: Initial Additional signs and symptoms: hyperglycemia ORDERING SYSTEM PROVIDED DIAGNOSIS CODES: COMPARISON: Chest, abdomen and pelvis CT 12/12/2020. TECHNIQUE: CT examination of the abdomen and pelvis without IV contrast. Coronal and sagittal reformations were performed. Dose reduction techniques were achieved by using automated exposure control and/or adjustment of mA and/or kV according to patient size and/or use of iterative reconstruction technique. FINDINGS: Lung bases are clear. Solid upper abdominal organs demonstrate no acute abnormalities on this limited noncontrast study. No adrenal mass or adenopathy. No nephrolithiasis or hydronephrosis. Gallbladder is absent. Dense aortic atherosclerosis without aneurysm. No bowel obstruction or inflammation. Normal appendix. Air-fluid levels are seen throughout the small bowel and colon. No pneumatosis or pneumoperitoneum. Mild sigmoid diverticulosis. No pelvic adenopathy or ascites. Atrophic uterus containing numerous calcified fibroids. Bladder is decompressed. No suspicious lytic or sclerotic osseous lesions. Chronic severe multilevel lumbar degenerative disc disease and facet arthropathy resulting in a grade 1 subluxation at L4-5 measuring 7 mm. 1. Mild diffuse adynamic ileus pattern without evidence of bowel obstruction. 2. Severe aortic atherosclerosis. 3. 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 [employer] Workstation ID: [id number] Pending Lab and Radiology Results Order Current Status Stool/GI PCR Panel (Includes Ova and Parasites) In process WBC Stain-Stool (Fecal Leukocytes) In process Interpretation of Testing: I personally reviewed the EKG, Chest X-ray and CT A/P and agree with the interpretation(s). Associated attestation - Angel, Chandu Rubin MD - 04/01/2021 11:14 PM EDT Patient seen and managed independently by SASKIA. I did not participate in the care of this patient, but was available for immediate consultation if requested by the LIBRARY CLERK. documented in this encounter [facility] 04-01-2021 Emergency departm ent Note Report given to JENNIFER Landon. Pt refusing straight cath at this time stating she is continent at home and would like to attempt to urinate later after she has received IV fluids. This RN assists pt to bedside commode. Pt requests privacy while using the bathroom. This RN steps out of room. Pt's call light within reach. ED Physician Note: NAME: Mony Worley 81 y.o. CSN: [id number] PCP: Cristian Phillip CNP ED Course / Medical Decision Making: Patient will be admitted for symptomatic control. Has had nausea and vomiting x2 with now diarrhea. Stomach feels queasy but denies any significant pain. Has a nonperitoneal abdomen. CAT scan shows ileus. Done without contrast due to CKD and dye allergy. Patient has slight lower bicarbonate baseline. Could be related to her CKD and/or diarrhea. Will add lactic acid. Patient also has mild elevated white count which could be a stress response. There is no obvious bowel obstruction or colitis found. She does have an ileus on CT. Patient does not feel enough to go home at this time and still feels queasy. Given her underlying CKD other comorbidities, will admit her for IV fluids and symptom control. Spoke with hospitalist for admission. . Clinical Impression: 1. Ileus (HCC) 2. Chronic kidney disease, unspecified CKD stage 3. Nausea vomiting and diarrhea Disposition: Patient is being hospitalize to OBS History: Chief Complaint: Hyperglycemia HPI: The history was obtained from the patient. She is a 81 y.o. female who presents with a chief complaint of Hyperglycemia. HPI patient arrives via EMS. Normal state of health prior to 10 PM. 10 PM yesterday she started having some queasiness to her stomach with some stomach discomfort and nausea. She vomited once at home. Vomited once here in the ER for my evaluation. States that she feels off. She states that her sugar was elevated at home. She was given some fluids of EMS and her sugar is 136 here. She denies any chest pain, shortness of breath, fever, chills, urinary symptoms or any other issues. No other treatment prior arrival PMHx: Past Medical History: Diagnosis Date Diabetes mellitus (HCC) Hypertension PMSx: Past Surgical History: Procedure Laterality Date CHOLECYSTECTOMY PARATHYROID ADENOMA EXCISION FAM. Hx: History reviewed. No pertinent family history. SOC. Hx: Social History Socioeconomic History Marital status: Spouse name: Not on file Number of children: Not on file Years of education: Not on file Highest education level: Not on file Occupational History Not on file Tobacco Use Smoking status: Never Smoker Smokeless tobacco: Never Used Substance and Sexual Activity Alcohol use: Never Drug use: Never Sexual activity: Not on file Other Topics Concern Not on file Social History Narrative Not on file Social Determinants of Health Financial Resource Strain: Difficulty of Paying Living Expenses: Food Insecurity: Worried About Running Out of Food in the Last Year: Ran Out of Food in the Last Year: Transportation Needs: Lack of Transportation (Medical): Lack of Transportation (Non-Medical): Physical Activity: Days of Exercise per Week: Minutes of Exercise per Session: Stress: Feeling of Stress : Social Connections: Frequency of Communication with Friends and Family: Frequency of Social Gatherings with Friends and Family: Attends Sabianist Services: Active Member of Clubs or Organizations: Attends Club or Organization Meetings: Marital Status: MEDs: Previous Medications Medication Sig aspirin 81 mg chewable tablet Chew and Swallow 81 mg daily . atorvastatin (LIPITOR) 40 MG tablet Take 40 mg by mouth daily . calcitrioL (ROCALTROL) 0.25 MCG capsule Take 0.25 mcg by mouth Monday, Monday, Monday . diltiazem (CARDIZEM CD) 300 MG 24 hr capsule Take 300 mg by mouth daily . doxazosin (CARDURA) 4 MG tablet Take 4 mg by mouth daily . furosemide (LASIX) 40 MG tablet Take 40 mg by mouth daily . insulin aspart U-100 (NovoLOG) 100 unit/mL injection Inject 18 Units under the skin daily with dinner . insulin aspart U-100 (NovoLOG) 100 unit/mL injection Inject 10 Units under the skin 2 (two) times a day With breakfast and lunch . Levemir U-100 Insulin 100 unit/mL injection Inject 40 Units under the skin every morning . potassium chloride 10 MEQ CR tablet Take 10 mEq by mouth daily . quinapriL (ACCUPRIL) 40 MG tablet Take 40 mg by mouth every evening . ALL: Allergies Allergen Reactions Iodine Hives Penicillins Hives ROS: Review of Systems Constitutional: Negative for chills and fever. HENT: Negative for congestion and rhinorrhea. Eyes: Negative for pain and redness. Respiratory: Negative for cough and shortness of breath. Cardiovascular: Negative for chest pain and palpitations. Gastrointestinal: Positive for abdominal pain, nausea and vomiting. Negative for constipation and diarrhea. Genitourinary: Negative for difficulty urinating. Musculoskeletal: Negative for back pain, neck pain and neck stiffness. Skin: Negative for rash. Neurological: Negative for dizziness, syncope, weakness, light-headedness and headaches. All other systems reviewed and are negative. Positives and pertinent negatives as per HPI. All other systems were reviewed and are negative. Physical Exam: Patient Vitals for the past 24 hrs: BP Temp Temp src Pulse Resp SpO2 Height Weight 04/01/21 0430 (!) 177/58 73 04/01/21 0246 (!) 162/64 72 96 % 04/01/21 0114 (!) 136/53 98.3 F (36.8 C) Oral 96 (!) 22 97 % 5' 6 114.3 kg (252 lb) Physical Exam Vitals and nursing note reviewed. Constitutional: Appearance: She is well-developed. HENT: Head: Normocephalic and atraumatic. Eyes: General: No scleral icterus. Right eye: No discharge. Left eye: No discharge. Conjunctiva/sclera: Conjunctivae normal. Cardiovascular: Rate and Rhythm: Normal rate and regular rhythm. Pulses: Dorsalis pedis pulses are 2+ on the right side and 2+ on the left side. Heart sounds: Normal heart sounds. Pulmonary: Effort: Pulmonary effort is normal. Breath sounds: Normal breath sounds. No decreased breath sounds, wheezing, rhonchi or rales. Abdominal: Palpations: Abdomen is soft. Tenderness: There is no abdominal tenderness. There is no right CVA tenderness, left CVA tenderness, guarding or rebound. Comments: Obese Musculoskeletal: Cervical back: Normal range of motion and neck supple. Right lower leg: Edema present. Left lower leg: Edema present. Comments: Bilateral lower leg skin changes consistent with venous stasis Skin: General: Skin is warm. Findings: No ecchymosis or rash. Neurological: General: No focal deficit present. Mental Status: She is alert and oriented to person, place, and time. Psychiatric: Behavior: Behavior normal. Laboratory & Radiological Imaging (if done): Labs Reviewed CHEM 7 - Abnormal; Notable for the following components: Result Value Chloride 111 (*) Bicarbonate 20 (*) Creatinine 1.97 (*) Glucose 125 (*) BUN 63 (*) eGFR 23 (*) BUN/Creatinine Ratio 32.0 (*) All other components within normal limits Narrative: The eGFR should be used for monitoring renal function only and not for medication dosing. POC GLUCOSE - RALS - Abnormal; Notable for the following components: Glucose 133 (*) All other components within normal limits CBC WITH AUTO DIFFERENTIAL - Abnormal; Notable for the following components: WBC 13.24 (*) RBC 3.68 (*) Hemoglobin 11.7 (*) MCV 102.4 (*) Neutrophils Abs 11.13 (*) All other components within normal limits HEPATIC FUNCTION PANEL - Normal LIPASE - Normal STOOL/GI PCR PANEL WBC STAIN-STOOL COVID-19, MOLECULAR CBC AND DIFFERENTIAL Narrative: The following orders were created for panel order CBC w/ Diff. Procedure Abnormality Status --------- ------ CBC Auto Differential[[id number]] Abnormal Final result Please view results for these tests on the individual orders. URINALYSIS LACTIC ACID, PLASMA CT Abdomen Pelvis Without Contrast Final Result 1. Mild diffuse adynamic ileus pattern without evidence of bowel obstruction. 2. Severe aortic atherosclerosis. 3. 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 SZD/Par[employer] Workstation ID: [id number] Procedures: Procedures Fredy Horton MD ED Physician Emergency Department (Please note that portions of this note have been completed with a voice recognition software. Efforts were made to correct any errors, but occasionally words are mis-transcribed.) Fredy Horton MD 04/01/21 0455 Pt presents to ED with c/o hyperglycemia, abdominal pain, and nausea that began just [employer]. Pt states blood glucose was 278 at home. Glucose was 126 per EMS just prior to arriving to ED. Pt states she feels better after fluids administered by EMS. Bed: 20 Expected date: Expected time: Means of arrival: Comments: EMS [facility] Diagnosis Onychomycosis- Primary Dermatophytosis of nail Diabetic mononeuropathy associated with type 2 diabetes mellitus (HCC) Acquired bilateral hammer toes Bilateral bunions Foot callus Corns and callosities Varicose veins of leg with swelling, bilateral [facility] Diagnosis Onychomycosis- Primary Dermatophytosis of nail Diabetic mononeuropathy associated with type 2 diabetes mellitus (HCC) [facility] Diagnosis Onychomycosis- Primary Dermatophytosis of nail Diabetic mononeuropathy associated with type 2 diabetes mellitus (HCC) [facility] Diagnosis Onychomycosis- Primary Dermatophytosis of nail Diabetic mononeuropathy associated with type 2 diabetes mellitus (HCC) [facility] Attachments The following attachments cannot be sent through Care Everywhere. 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 Advance Directives and Livin g Will 04/01/2021 1:56 AM Latest Code Status on File Code Status Date Activated Date Inactivated Comments Full Code 04/01/2021 5:27 AM 04/02/2021 7:40 PM Latest Code Status on File Date Activated Date Inactivated Comments 04/01/2021 5:27 AM 04/02/2021 7:40 PM Latest Code Status on File Code Status Date Activated Date Inactivated Comments Full Code 04/01/2021 5:27 AM 04/02/2021 7:40 PM Hospital Course Note Send Summary: Discharge Summ kiko Providers: Provider RoleProvider Name AttendingSushil Odonnell Note Recipients: Sly Pedersen MD - [id number] [] Discharge: Summary: Admission Date: .06-Dec-2019 04:00:00 Discharge Date: 09-Dec-2019 Attending Physician at Discharge: Sushil Odonnell Admission Reason: Nausea, vomiting and diarrhea(1) Final Discharge Diagnoses: Acute kidney injury superimposed on chronic kidney disease, Dehydration, Nausea and vomiting, Procedures: 1. Nephrology consultation 2. Renal ultrasound 12/09/2019 Condition at Discharge: Satisfactory Disposition at Discharge: .Home Vital Signs: T PRBPSpO2 [id number]% Date/Time12/08 7: 7: 7: 7: 7:00 Range(36.7C - 37.2C ) (52 - 62 ) (18 - 20 ) (128 - 151 )/ (48 - 64 ) (92% - 96% ) Highest temp of 37.2 C was recorded at 12/08 7:00 Physical Exam: Constitutional: Awake and alert; oriented 3 with no apparent distress or respiratory distress Head/Neck: Neck is supple with no palpable lymphadenopa (more content not included)... Discharge Instructions * Attachments The following attachments cannot be sent through Care Everywhere. * Contusion (Cuban) documented in this encounter Assessments Diagnosis Fall, initial encounter- Primary Chest wall pain Painful respiration Closed head injury, initial encounter Additional Source Comments INFORMATION SOURCE (unrecogn ized section and content) DATE CREATED AUTHOR AUTHOR'S ORGANIZ ATION 11/25/2020 [facility] DATE CREATED AUTHOR AUTHOR'S ORGANIZ ATION 04/04/2021 [facility] DATE CREATED AUTHOR AUTHOR'S ORGANIZ ATION 02/28/2023 [facility] Reason for Visit (unrecogniz ed section and content) Reason Comments Hyperglycemia Status Reason Specialty Diagnoses / Procedures Referre d By Contact Referred To Contact Diagnoses Ileus (HCC) Reason Comments Nail Care Diabetic nail care. Pt states her last A1C was 6.2 and sugar level this morning was 127. Pt states she thinks her left 2nd toenail may need to be removed. Reason Comments Nail Care Diabetic a1c 5.9 Reason Comments Nail Care Diabetic nail care Anish Dimas MD - 12/12/2020 12:47 PM EDTPUli young II, RN - 12/12/2020 12:00 PM EDTSheryl Carias - 12/12/2020 11:59 AM EDT ED Notes (unrecognized secti on and content) [facility] [place] ED Attending Note: NAME: Mony Worley 80 y.o. CSN: [id number] PCP: Cristian Phillip CNP History: Chief Complaint: Fall HPI: The history was obtained from the patient. Mony is a 80 y.o. female who presents with a chief complaint of Fall. Patient 80-year-old female who presents with fall. History of diabetes, hypertension, chronic kidney disease. Patient states she tripped on a rug, and fell onto her right side on the bottom. Did hit her head on the wall, mild, denies any pain or loss of consciousness, not on blood thinners. Complains mostly of right flank and right chest wall pain. PMHx: Past Medical History: Diagnosis Date Diabetes mellitus (HCC) Hypertension PMSx: History reviewed. No pertinent surgical history. FAM. Hx: History reviewed. No pertinent family history. SOC. Hx: Social History Socioeconomic History Marital status: Spouse name: Not on file Number of children: Not on file Years of education: Not on file Highest education level: Not on file Occupational History Not on file Social Needs Financial resource strain: Not on file Food insecurity Worry: Not on file Inability: Not on file Transportation needs Medical: Not on file Non-medical: Not on file Tobacco Use Smoking status: Never Smoker Smokeless tobacco: Never Used Substance and Sexual Activity Alcohol use: Never Frequency: Never Drug use: Never Sexual activity: Not on file Lifestyle Physical activity Days per week: Not on file Minutes per session: Not on file Stress: Not on file Relationships Social connections Talks on phone: Not on file Gets together: Not on file Attends yazidi service: Not on file Active member of club or organization: Not on file Attends meetings of clubs or organizations: Not on file Relationship status: Not on file Other Topics Concern Not on file Social History Narrative Not on file MEDs: Previous Medications Medication Sig aspirin 81 mg chewable tablet Chew and Swallow 81 mg daily . atorvastatin (LIPITOR) 40 MG tablet Take 40 mg by mouth daily . calcitrioL (ROCALTROL) 0.25 MCG capsule Take 0.25 mcg by mouth Monday, Monday, Monday . diltiazem (CARDIZEM CD) 300 MG 24 hr capsule Take 300 mg by mouth daily . doxazosin (CARDURA) 4 MG tablet Take 4 mg by mouth daily . furosemide (LASIX) 40 MG tablet Take 40 mg by mouth daily . insulin aspart U-100 (NovoLOG) 100 unit/mL injection Inject 18 Units under the skin daily with dinner . insulin aspart U-100 (NovoLOG) 100 unit/mL injection Inject 10 Units under the skin 2 (two) times a day With breakfast and lunch . Levemir U-100 Insulin 100 unit/mL injection Inject 40 Units under the skin every morning . potassium chloride 10 MEQ CR tablet Take 10 mEq by mouth daily . quinapriL (ACCUPRIL) 40 MG tablet Take 40 mg by mouth every evening . [DISCONTINUED] NovoLOG Flexpen U-100 Insulin 100 unit/mL (3 mL) InPn Inject 10 Units under the skin 2 (two) times a day With breakfast and lunch . ALL: Allergies Allergen Reactions Iodine Hives Penicillins Hives PACU Vitals 12/12/20 1330 BP: 141/62 Pulse: Resp: Temp: SpO2: 98% Review of Systems Constitutional: Negative for activity change and appetite change. Eyes: Negative for visual disturbance. Respiratory: Negative for cough, chest tightness, shortness of breath and wheezing. Cardiovascular: Negative for chest pain and leg swelling. Right chest wall pain Gastrointestinal: Negative for abdominal pain, diarrhea, nausea and vomiting. Genitourinary: Positive for flank pain. Musculoskeletal: Negative for joint swelling. Skin: Negative for rash. Neurological: Negative for dizziness, weakness and numbness. All other systems reviewed and are negative. Physical Exam Vitals signs and nursing note reviewed. Constitutional: Appearance: Normal appearance. HENT: Head: Normocephalic and atraumatic. Right Ear: External ear normal. Left Ear: External ear normal. Nose: Nose normal. Mouth/Throat: Mouth: Mucous membranes are moist. Eyes: Extraocular Movements: Extraocular movements intact. Conjunctiva/sclera: Conjunctivae normal. Pupils: Pupils are equal, round, and reactive to light. Neck: Musculoskeletal: Normal range of motion. Cardiovascular: Rate and Rhythm: Normal rate and regular rhythm. Pulses: Normal pulses. Heart sounds: Normal heart sounds. No murmur. No gallop. Pulmonary: Effort: Pulmonary effort is normal. Breath sounds: Normal breath sounds. No stridor. No wheezing, rhonchi or rales. Abdominal: General: There is no distension. Palpations: Abdomen is soft. Tenderness: There is no abdominal tenderness. Musculoskeletal: Normal range of motion. Right lower leg: No edema. Left lower leg: No edema. Comments: No midline spinal tenderness, no abdominal tenderness, pelvis stable, palpated all extremities, without any tenderness to palpation, normal pulses. She does have tenderness palpation along her right lower chest wall, along her right flank, and right side. No bruising noted No midline spinal tenderness Skin: General: Skin is warm. Findings: No rash. Neurological: General: No focal deficit present. Mental Status: She is alert and oriented to person, place, and time. Mental status is at baseline. Psychiatric: Mood and Affect: Mood normal. Laboratory & Radiological Imaging (if done): Recent Results (from the past 24 hour(s)) Chem 7 Collection Time: 12/12/20 12:17 PM Result Value Ref Range Sodium 144 135 - 145 mmol/L Potassium 3.8 3.5 - 5.1 mmol/L Chloride 114 (H) 98 - 108 mmol/L Bicarbonate 25 21 - 32 mmol/L Creatinine 1.92 (H) 0.60 - 1.20 mg/dL Glucose 133 (H) 65 - 99 mg/dL BUN 48 (H) 8 - 25 mg/dL eGFR 24 (L) >=60 mL/min/1.73 m2 BUN/Creatinine Ratio 25.0 (H) 10.0 - 20.0 Anion Gap 9 (L) 10 - 20 mmol/L CBC Auto Differential Collection Time: 12/12/20 12:17 PM Result Value Ref Range WBC 7.37 4.50 - 11.00 K/mcL RBC 3.05 (L) 4.00 - 5.20 M/mcL Hemoglobin 9.6 (L) 12.0 - 16.0 g/dL Hematocrit 31.6 (L) 36.0 - 46.0 % MCV 103.6 (H) 80.0 - 100.0 fL MCH 31.5 26.0 - 34.0 pg MCHC 30.4 (L) 31.0 - 37.0 g/dL Platelets 284 150 - 400 K/mcL RDW - CV 13.7 11.6 - 14.8 % MPV 10.0 9.4 - 12.4 fL Neutrophils 67.8 % Lymphocytes 18.2 % Monocytes 9.0 % Eosinophils 4.1 % Basophils 0.4 % IG Percent 0.50 % Neutrophils Abs 5.00 1.70 - 7.00 K/mcL Lymphocytes Abs 1.34 0.90 - 4.00 K/mcL Monocytes Abs 0.66 0.30 - 0.90 K/mcL Eosinophils Abs 0.30 0.00 - 0.50 K/mcL Basophils Abs 0.03 0.00 - 0.30 K/mcL IG Absolute 0.04 0.00 - 0.30 K/mcL Nucleated RBC 0.0 % Nucleated RBC Abs 0.00 0.00 - 0.00 K/mcL Light Blue Top Collection Time: 12/12/20 12:18 PM Result Value Ref Range Extra Tube Hold for add-ons. CT Thoracic Spine Without Contrast Reconstructed Preliminary Result 1. Degenerative changes of the thoracolumbar spine. No acute fracture or process is seen. 2. Degenerative grade 1 spondylolisthesis of L4 on L5 with broad-based disc bulge and mild spinal stenosis L4-5. [employer] Workstation ID: [id number] CT Lumbar Spine Without Contrast Reconstructed Preliminary Result 1. Degenerative changes of the thoracolumbar spine. No acute fracture or process is seen. 2. Degenerative grade 1 spondylolisthesis of L4 on L5 with broad-based disc bulge and mild spinal stenosis L4-5. [place]/[employer] Workstation ID: [id number] CT Chest Abdomen Pelvis Without Contrast Preliminary Result 1. Subcutaneous edema anterior abdominal wall consistent with a contusion. 2. No acute traumatic process within the chest, abdomen or pelvis. 3. Atherosclerotic disease and coronary artery disease. 4. 2.2 cm benign-appearing cyst at the tail of the pancreas may represent a microcystic adenoma or pseudocysts. MRI recommended. 5. Leiomyomas. 6. Degenerative changes of the spine. NC/[employer] Workstation ID: [id number] CT Cervical Spine Without Contrast Preliminary Result 1. Degenerative changes of the cervical spine with spinal stenosis at C5-6. No acute fracture. [place]/[employer] Workstation ID: [id number] CT Head Or Brain Without Contrast Final Result 1. No posttraumatic or acute intracranial abnormality is seen. 2. Expected age-related atrophy is noted. Patient does have a few small deep white matter hypodensities suggestive of incidental small lacunar infarcts. 3. Dense opacification of the right maxillary sinus suggests chronic sinus disease. Remaining included sinuses and mastoid air cells are clear. [facility] Workstation ID: [id number] ED Course / Medical Decision Making: Patient with fall, given age, and CKD, will get CT head neck chest abdomen pelvis with spinal recons, she does have significant pain when she moves. CT scans negative for acute fracture but does show subcutaneous edema, given this will apply lidocaine patch, will discharge home Tylenol for pain, otherwise overall appears well, Clinical Impression: 1. Fall, initial encounter 2. Chest wall pain 3. Closed head injury, initial encounter Anish Dimas MD [facility] Emergency Department (Please note that portions of this note have been completed with a voice recognition software. Efforts were made to correct any errors, but occasionally words are mis-transcribed.) Anish Dimas MD 12/12/20 1408 Pt presents to ER with report of a fall after tripping on a rug and falling on her right side. Pt denies LOC. PT reports pain to the right side. Pt denies any dizziness or chest pain. Bed: 01 Expected date: Expected time: Means of arrival: Comments: Runner needed documented in this encounter Scheduled Active and Recently Administ ered Medications (unrecognized section and content) Continuous Medication Order 03/31/2021 04/01/2021 04/02/2021 lactated Ringers infusion 75 mL/hr, Intravenous, Continuous, Starting on Laurie 04/01/21 at 0540 0620 (New Bag - Provider: Barbi Boland, RN)1505 (New Bag - Provider: Griselda Matt RN)1505 (Paused - Provider: Maryjane Brantley RN)1506 (Restarted - Provider: Maryjane Brantley RN)1506 (Paused - Provider: Maryjane Brantley, RN)1506 (Paused - Provider: Maryjane Brantley RN)1506 (Paused - Provider: Maryjane Brantley, RN)1507 (Paused - Provider: Maryjane Brantley, RN)1507 (Rate/Dose Change - Provider: Maryjane Brantley RN)1507 (Paused - Provider: Maryjane Brantley RN)1509 (Paused - Provider: Maryjane Brantley RN)1510 (Paused - Provider: Maryjane Brantley, RN)1510 (Paused - Provider: Maryjane Brantley, RN)1511 (Rate/Dose Change - Provider: Maryjane Brantley RN)1821 (Paused - Provider: Maryjane Brantley RN)1823 (Restarted - Provider: Maryjane Brantley RN)1823 (Paused - Provider: Maryjane Brantley RN)1827 (Restarted - Provider: Maryjane Brantley RN)1827 (Paused - Provider: Maryjane Brantley, RN)1829 (Paused - Provider: Maryjane Brantley, RN)1836 (Rate/Dose Change - Provider: Maryjane Brantley RN)2000 (Rate/Dose Verify - Provider: Maryjane Brantley RN)2301 (Paused - Provider: Maryjane Brantley RN)2302 (Restarted - Provider: Maryjane Brantley, RN) 0200 (Rate/Dose Verify - Provider: Maryjane Brantley RN)0246 (Rate/Dose Change - Provider: Maryjane Brantley RN)0248 (Rate/Dose Change - Provider: Maryjane Brantley RN)0250 (New Bag - Provider: Maryjane Brantley RN)0500 (Rate/Dose Verify - Provider: Maryjane Brantley RN)0753 (Rate/Dose Verify - Provider: Martha Hare RN)0925 (Paused - Provider: Martha Hare RN)0930 (Restarted - Provider: Martha Hare RN)1005 (Rate/Dose Verify - Provider: Martha Hare RN)1036 (Paused - Provider: Martha Hare RN)1136 (Restarted - Provider: Martha Hare RN)1141 (Rate/Dose Verify - Provider: Martha Hare RN)1356 (Rate/Dose Verify - Provider: Martha Hare RN)1605 (Paused - Provider: Martha Hare RN)1608 (Restarted - Provider: Martha Hare RN)1611 (Rate/Dose Verify - Provider: Martha Hare RN)1637 (Stopped - Provider: Martha Hare RN) PRN Medication Order 03/31/2021 04/01/2021 04/02/2021 acetaminophen (TYLENOL) tablet 650 mg 650 mg, Oral, Every 4 hours PRN, mild pain, fever 100.4 F or greater, headaches, Starting on Mon04/01/21 at 0550 hydrALAZINE (APRESOLINE) injection 10 mg 10 mg, Intravenous, Every 4 hours PRN, SBP>160, Starting on Mon04/02/21 at 0856 ondansetron (ZOFRAN) injection 4 mg(Linked Group 2) 4 mg, Intravenous, Every 6 hours PRN, nausea, vomiting, Starting on Mon04/01/21 at 0550, Use oral route first, if tolerated. 1706 (See Alternativ e - Provider: Martha Hare RN) ondansetron (ZOFRAN-ODT) disintegrating tablet 4 mg(Linked Group 2) 4 mg, Oral, Every 6 hours PRN, nausea, vomiting, Starting on Mon21 at 0550, Use oral route first, if tolerated. Formulation requires tablet remain in sealed package until immediately prior to dose being administered. 1706 (Given - Provid er: Martha Hare RN) sodium chloride (PF) (NS) flush 5 mL(Linked Group 1) 5 mL, Intravenous, As needed, line care, Starting on Laurie 04/01/21 at 0550 sodium chloride 0.9% (NS)(Linked Group 1) 0-150 mL/hr, Intravenous, As needed, To flush line after IV infusions when no maintenance IV ordered or a compatibility issue. Infuse 20ml at the same rate as the secondary infusion, Starting on Laurie 04/01/21 at 0550, Run as Primary IV. NOT intended for KVO. Linked Groups Order Group 1: Saline lock IV (CANCELED) Routine, Continuous, Starting on Laurie 04/01/21 at 0551, Until Specified And sodium chloride (PF) (NS) flush 5 mLJump to med 5 mL, Intravenous, As needed, line care, Starting on Laurie 04/01/21 at 0550 And sodium chloride (PF) (NS) flush 5 mLJump to med 5 mL, Intravenous, Every 8 hours scheduled, First dose on Laurie 04/01/21 at 0600
Saline lock
And sodium chloride 0.9% (NS)Jump to med 0-150 mL/hr, Intravenous, As needed, To flush line after IV infusions when no maintenance IV ordered or a compatibility issue. Infuse 20ml at the same rate as the secondary infusion, Starting on Laurie 04/01/21 at 0550
Run as Primary IV. NOT intended for KVO.
Group 2: ondansetron (ZOFRAN-ODT) disintegrating tablet 4 mgJump to med 4 mg, Oral, Every 6 hours PRN, nausea, vomiting, Starting on Laurie 04/01/21 at 0550
Use oral route first, if tolerated. Formulation requires tablet remain in sealed package until immediately prior to dose being administered.
Or ondansetron (ZOFRAN) injection 4 mgJump to med 4 mg, Intravenous, Every 6 hours PRN, nausea, vomiting, Starting on Laurie 04/01/21 at 0550
Use oral route first, if tolerated.
Care Teams (unrecognized sec tion and content) Loan Adviser Relationship Specialty Start Date End Date Lou Cristian Kacy, SASKIA [address] [place] [address] PCP - General Nurse Practitioner 12/12/20 Loan Adviser Relationship Specialty Start Date End Date MatyCristian judd CNP [address] [place] [address] PCP - General Nurse Practitioner 12/12/20 Loan Adviser Relationship Specialty Start Date End Date Lou Cristian Kacy, SASKIA [address] [place] [address] PCP - General Nurse Practitioner 12/12/20 FOR RECORDS PERTAINING TO PATIENTS WHO ARE OR HAVE BEEN ENROLLED IN A CHEMICAL DEPENDENCY/SUBSTANCEABUSE PROGRAM, SOME INFORMATION MAY BE OMITTED. This clinical summary was aggregated from multiple sources. Caution should be exercised in using it in the provision of clinical care. This summary normalizes information from multiple sources, and as a consequence, information in this document may materially change the coding, format and clinical context of patient data. In addition, data may be omitted in some cases. CLINICAL DECISIONS SHOULD BE BASED ON THE PRIMARY CLINICAL RECORDS. [facility] [employer] [facility]. provides no warranty or guarantee of the accuracy or completeness of information in this document.
== END 2023-04-20 11:05 | disposition home or self-care (01) ==
LOC: MEDOUTP 11:04
PROVIDERS: PCP Family Medicine; Referring Provider Internal Medicine Nephrology; Visit Provider Internal Medicine Nephrology
DX: N18.4 Chronic kidney disease, stage 4 (severe) (principal); D63.1 Anemia in chronic kidney disease
CPT/HCPCS: 36415; 80069; 85025; 96372; Q5106

== ENCOUNTER 2023-05-04 11:04 | Outpatient (CLI) | payer MEDICARE, OTHER, SELFPAY ==
[2023-05-04 11:38] LABS: Absolute Lymphocyte Count 1.59 X10^3/uL (0.83-4.51); Absolute Neutrophil Count 4.2 X10^3/uL (2.0-7.7); Basophil# 0.04 X10^3/uL; Basophil% 0.6 % (0-1); Eosinophil# 0.18 X10^3/uL; Eosinophils% 2.7 % (0-5); Hematocrit 32.3 % (37-47); Hemoglobin 10.3 g/dL (12.0-15.0); Lymphocyte # 1.59 X10^3/ul (0.83-4.51); Mean Corp Hgb Conc 31.9 g/dL (32-36); Mean Corpuscular Hgb 34.7 pg (27.0-32.0); Mean Corpuscular Volume 108.8 fL (81-99); Mean Platelet Vol. 9.3 fl (6.2-12.0); Monocyte# 0.57 X10^3/uL; Monocyte% 8.6 % (0-10); NRBC Flagged by Analyzer 0 % (0-5); Neutrophil # 4.23 X10^3/uL (2.7-7.7); Neutrophil % 63.8 % (47-70); Platelet Count 218 K/mm3 (150-450); RBC Distribution Width SD 55.9 fl (35.1-43.9); Red Blood Count 2.97 M/mm3 (4.2-5.4); White Blood Count 6.6 K/mm3 (4.4-11.0)
--- OUTSIDE RECORDS SUMMARY | 2023-05-04 11:43 | XMS RPT_ITS | CCD ---
Author Name Unknown Address [address] [place] [address] Organization [facility] Care Team Providers Care Wedger Machine Name Role Phone Sly Pedersen Unavailable Unavailable [...] sources) Penicillins; Translations: [PENICILLINS] Drug Allergy 9 [facility] (7 sources) Penicillins; Translations: [penicillins] Propensity to adverse reactions to drug (disorder) 9 [facility] (6 sources) Iodine; Translations: [IODINE] Drug Allergy 1 Hives, Unknown [facility] (3 sources) Penicillin; Translations: [PENICILLIN] Drug Allergy 2 [facility] Medications Current Medications Medication Drug Class(es) Dates [...] First dose on Mon04/01/21 at 0900 calcitriol 0.21185 mg oral capsule (7 sources) Vitamin D3 [...] 98.1 [degF] Romario Andrews DPM Work Phone: [facility] 02-16-2023 16:51-0400 Diastolic blood pressure 59 mm[Hg] Romario Andrews DPM Work Phone: [facility] 02-16-2023 16:51-0400 Heart rate 75 /min Romario Andrews DPM Work Phone: [facility] 02-16-2023 16:51-0400 Systolic blood pressure 134 mm[Hg] Romarionaomie FerrerAndrews DPM Work Phone: [facility] 11-17-2022 16:30-0500 Diastolic blood pressure 72 mm[Hg] Romarionaomie FerrerAndrews DPM Work Phone: [facility] 11-17-2022 16:30-0500 Heart rate 72 /min Romarionaomie FerrerAndrews DPM Work Phone: [facility] 11-17-2022 16:30-0500 Systolic blood pressure 178 mm[Hg] Romarionaomie FerrerAndrews DPM Work Phone: [facility] 11-17-2022 16:17-0500 Body temperature 98.6 [degF] Romario Andrews DPM Work Phone: [facility] 05-12-2022 14:55-0400 Diastolic blood pressure 71 mm[Hg] Romarionaomie FerrerAndrews DPM Work Phone: [facility] 05-12-2022 14:55-0400 Heart rate 53 /min Romarionaomie FerrerAndrews DPM Work Phone: [facility] 05-12-2022 14:55-0400 Systolic blood pressure 177 mm[Hg] Romario Andrews DPM Work Phone: [facility] 05-12-2022 14:48-0400 Body temperature 99.19 [degF] Romario Andrews DPM Work Phone: [facility] 04-02-2021 12:21-0400 Diastolic blood pressure 66 mm[Hg] Fredy Horton MD Work Phone: [facility] 04-02-2021 12:21-0400 Systolic blood pressure 119 mm[Hg] Fredy Horton MD Work Phone: [facility] 04-02-2021 07:22-0400 Body temperature 98.01 [degF] Fredy Horton MD Work Phone: [facility] 04-02-2021 07:22-0400 Heart rate 54 /min Fredy Horton MD Work Phone: [facility] 04-02-2021 07:22-0400 Respiratory rate 14 /min Fredy Horton MD Work Phone: [facility] 04-02-2021 07:22-0400 SaO2% (BldA) [Mass fraction] 94 % Fredy Horton MD Work Phone: [facility] 04-01-2021 01:14-0400 Body height 167.6 cm Fredy Horton MD Work Phone: [facility] 04-01-2021 01:14-0400 Body mass index (BMI) [Ratio] 40.67 kg/m2 Fredy Horton MD Work Phone: [facility] 04-01-2021 01:14-0400 Body weight 114.31 kg Fredy Horton MD Work Phone: [facility] 12-12-2020 14:00-0400 BP Diastolic 60 mm[Hg] [facility] [...] Start: 02-16-2023 End: 02-16-2023 [facility] Start: 02-16-2023 End: 02-16-2023 Patient encounter procedure Romario Andrews DPM Work Phone: [facility] Procedures Date Procedure Procedure [...] Respiratory specimen by [place] with probe detection Fredy Horton MD Work Phone: Start: 04-01-2021 Ct [...] MD Work Phone: Start: 04-01-2021 Glucose measurement [facility] Start: 12-12-2020 End: 12-12-2020 Ct thoracic spine w/o contrast material Anish Dimas Work Phone: Start: 12-12-2020 CT of chest, abdomen and pelvis without contrast Anish Idmas Work Phone: Start: 12-12-2020 CT cervical spine [...] Start: 04-16-2028 Tetanus vaccination Tetanus: Every 10yrs [facility] Start: 05-25-2023 End: 05-25-2023 Patient encounter procedure 05/25/2023 4:15 PM EDT Office Visit [facility] [address] [place] [address] Romario Andrews, DPM [address] [place] [address] [facility] Start: 02-16-2023 End: 02-16-2023 Patient encounter procedure 02/16/2023 Office Visit Podiatry Romario Andrews, SOFIYA [address] [place] [address] [facility] Start: 08-04-2022 End: 08-04-2022 Patient encounter procedure 08/04/2022 Office Visit Podiatry Romario Andrews, SOFIYA [address] [place] [address] [facility] Start: 05-19-2022 Influenza vaccination Sequential Influenza Vaccine (#1) [facility] Start: 12-18-2021 COVID-19 Vaccine (4 - Booster for Moderna series) COVID-19 Vaccine (4 - Booster for Moderna series) [facility] Start: 10-14-2021 COVID-19 Vaccine (4 - Booster for Moderna series) COVID-19 Vaccine (4 - Booster for Moderna series) [facility] Start: 05-19-2021 Influenza vaccination Sequential Influenza Vaccine (#1) [facility] Start: 09-02-2020 Pneumococcal vaccination Pneumococcal Vaccine Age 65+ (2 of 2 - PCV13) [facility] Start: 05-19-2020 Influenza vaccination given Sequential Influenza Vaccine (#1) [facility] Start: 04-16-2019 Pneumococcal Vaccine: Age 65+ (2 - PPSV23 or PCV20) Pneumococcal Vaccine: Age 65+ (2 - PPSV23 or PCV20) [facility] Start: 01-06-2005 Fall risk assessment Falls Risk Assessment [facility] Start: 01-06-1990 Administration of herpes zoster vaccine Zoster Vaccines (1 of 2) [facility] Start: 01-06-1959 Administration of herpes zoster vaccine Zoster Vaccines (1 of 2) [facility] Start: 1956 COVID-19 Vaccine (1) COVID-19 Vaccine (1) [facility] Start: 1952 Adolescent depression screening assessment Depression Screening (PHQ9) [facility] Start: 1952 Depression screening using PHQ-9 (Patient Health Questionnaire 9) score [facility] Start: 01-06-1950 Diabetic foot examination Foot Exam [facility] Start: 01-06-1950 Glaucoma screening Ophthalmology Exam [facility] Start: 01-06-1950 Microalbumin measurement, urine, quantitative Urine Microalbumin [facility] Start: 01-06-1950 Ophthalmic examination and evaluation Ophthalmology Exam [facility] Start: 01-06-1950 Urine screening for protein Urine Microalbumin [facility] Start: 01-06-1946 Pneumococcal Vaccine: Age 65+ (1 of 4 - PCV13) Pneumococcal Vaccine: Age 65+ (1 of 4 - PCV13) [facility] Start: 01-06-1943 History and physical examination, annual for health maintenance Wellness Visit [facility] Start: 1940 Fall risk assessment Falls Risk Assessment [facility] Start: 1940 Hemoglobin A1c measurement A1C [facility] Start: 1940 Screening for osteoporosis Dexa Scan [facility] Start: 1940 Screening mammography Mammogram [facility] Start: 1940 Tetanus vaccination Tetanus: Every 10yrs [facility] Payers Date Payer Category Payer Unknown 2014 Unknown 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 [id number] 2014-Present [id number] 2014 Unknown [id number] 2004 Medicare 2004 Medicare MEDICARE MEDICAR E PART A & B [id number] 2004-Present [place] [id number] 2004 Medicare [id number] 1940 Unknown [id number] 1940 Unknown [id number] 1940 Unknown [id number] 1940 Unknown [id number] 1940 Unknown [id number] 1940 Unknown [id number] 1940 Unknown [id number] 1940 Unknown [id number] 1940 Unknown [id number] Social History Date Type Detail Facility Start: 12-12-2020 End: 05-12-2022 Tobacco smoking status GAIS Never smoker [facility] Start: 12-12-2020 End: 05-12-2022 Tobacco use and exposure Never used [facility] Start: 12-12-2020 End: 02-16-2023 Alcohol intake Lifetime non-drinker (finding) [facility] Start: 12-12-2020 History SDOH Alcohol Frequency 1 [facility] Start: 1940 [facility] Start: 05-02-2022 End: 11-17-2022 Exposure to SARS-CoV-2 (event) Not sure [facility] Start: 12-12-2020 End: 11-17-2022 History of Social function [facility] Start: 12-12-2020 End: 11-17-2022 Alcohol Use Disorder Identification Test - Consumption [AUDIT-C] [facility] How often to you hav e a drink containing alcohol? Never [facility] Average Number of Drinks Not on file [facility] Start: 12-12-2020 Gender identity Identifies as female gender (finding) [facility] Start: 04-01-2021 Sexual orientation Heterosexual (cherry huang) [facility] Clinical Notes 04-01-2021 to 02-16-2023 Romario Andrews, [...] 3 months. Procedures documented in this encounter [facility] 02-16-2023 History of Presen t illness Narrative [...] 3 months. Procedures documented in this encounter [facility] 11-17-2022 History of Presen t illness Narrative [...] 3 months. Procedures documented in this encounter [facility] 05-12-2022 History of Presen t illness Narrative Patient Name: Mony Worley MR #: [id number] : 1940 Gender: female. Date of Consultation: [...] bilateral. Neurological: Diminished bilateral feet with a [place] Carmina 5.0 7 monofilament. Patient cannot feel [...] above physician 05/12/22 documented in this encounter [facility] 04-01-2021 Miscellaneous Notes Problem: Actual or potential [...] normal ST Segments: ST segments normal normal NE interval normal QRS interval normal QT interval Clinical impression: non-specific ECG documented in this encounter [facility] 04-01-2021 History and physi alessandra note [facility] Medicine Inpatient H&P 04/01/2021 Imelda Hirsch CNP [facility] Patient: Mony Worley Date of : [...] normal ST Segments: ST segments normal normal NE interval normal QRS interval normal QT interval [...] with resultant grade 1 subluxation at L4-5. [employer] Workstation ID: [id number] Pending Lab and Radiology [...] for immediate consultation if requested by the PARTS TECHNICIAN. documented in this encounter [facility] 04-01-2021 Emergency departm ent Note Report given [...] Note: NAME: Mony Worley 81 y.o. CSN: [id number] PCP: Cristian Phillip CNP ED Course / [...] Social Gatherings with Friends and Family: Attends [employer] Services: Active Member of Clubs or Organizations: [...] Procedure Abnormality Status --------- ------ CBC Auto Differential[[id number]] Abnormal Final result Please view results for these tests on the individual orders. URINALYSIS LACTIC ACID, PLASMA CT Abdomen Pelvis Without Contrast Final Result 1. Mild diffuse adynamic ileus pattern without evidence of bowel obstruction. 2. Severe aortic atherosclerosis. 3. 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 [employer] Workstation ID: [id number] Procedures: Procedures Fredy Horton MD ED Physician Emergency Department (Please note that portions of this note have been completed with a voice recognition software. 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 Pt states blood glucose was 278 at [...] diabetes mellitus (HCC) [facility]* Attachments The following attachments cannot be sent through Care Everywhere. * Ileus: General Info (Cymro) [facility] Purpose Family History No Family History Records FoundNo Family History Records FoundNo Family History Records FoundNo Family History Records Found Advance Directives No Advanced Directives Records FoundDocuments on File Type Date Recorded Patient Equipment Validation Engineer Expl anation Advance Directives and Livin g Will 12/12/2020 12:16 PM Documents on File Type Date Recorded Patient Equipment Validation Engineer Expl anation Advance Directives and Livin g [...] Odonnell Note Recipients: Sly Pedersen MD - [id number] [] Discharge: Summary: Admission Date: .06-Dec-2019 04:00:00 Discharge Date: 09-Dec-2019 Attending Physician at Discharge: Sushil Odonnell Admission Reason: Nausea, vomiting and diarrhea(1) Final Discharge Diagnoses: Acute kidney injury superimposed on chronic kidney disease, Dehydration, Nausea and vomiting, Procedures: 1. Nephrology consultation 2. Renal ultrasound 12/09/2019 Condition at Discharge: Satisfactory Disposition at Discharge: .Home Vital Signs: T PRBPSpO2 [id number]/6492% Date/Time12/08 7: 7: 7: 7: 7:00 Range(36.7C [...] be sent through Care Everywhere. * Contusion (Cymro) documented in this encounter Assessments Diagnosis Fall, initial encounter- Primary Chest wall pain Painful respiration Closed head injury, initial encounter Additional Source Comments INFORMATION SOURCE (unrecogn ized section and content) DATE CREATED AUTHOR AUTHOR'S ORGANIZ ATION 11/25/2020 [facility] DATE CREATED AUTHOR AUTHOR'S ORGANIZ ATION 04/04/2021 [facility] DATE CREATED AUTHOR AUTHOR'S ORGANIZ ATION 02/28/2023 [facility] Reason for Visit (unrecogniz ed section [...] ED Notes (unrecognized secti on and content) [facility] ED Attending Note: NAME: Mony Worley 80 y.o. CSN: [id number] PCP: Cristian Phillip CNP History: Chief Complaint: [...] file Gets together: Not on file Attends gnosticist service: Not on file Active member of [...] disc bulge and mild spinal stenosis L4-5. [employer] Workstation ID: [id number] CT Lumbar Spine Without Contrast Reconstructed Preliminary Result 1. Degenerative changes of the thoracolumbar spine. No acute fracture or process is seen. 2. Degenerative grade 1 spondylolisthesis of L4 on L5 with broad-based disc bulge and mild spinal stenosis L4-5. VT/Leap Workstation ID: [id number] CT Chest Abdomen Pelvis [...] Leiomyomas. 6. Degenerative changes of the spine. [employer] Workstation ID: [id number] CT Cervical Spine Without Contrast Preliminary Result 1. Degenerative changes of the cervical spine with spinal stenosis at C5-6. No acute fracture. [employer] Workstation ID: [id number] CT Head Or Brain Without Contrast Final Result 1. No posttraumatic or acute intracranial abnormality is seen. 2. Expected age-related atrophy is noted. Patient does have a few small deep white matter hypodensities suggestive of incidental small lacunar infarcts. 3. Dense opacification of the right maxillary sinus suggests chronic sinus disease. Remaining included sinuses and mastoid air cells are clear. [facility] Workstation ID: [id number] ED Course / [...] head injury, initial encounter Anish Dimas MD [facility] Emergency Department (Please note that portions [...] Provider: Maryjane Brantley RN)[phone] (Paused - Provider: Maryajne Brantley RN)[phone] (Paused - Provider: Maryjane Brantley [...]
Care Teams (unrecognized sec tion and content) Wedger Machine Relationship Specialty Start Date End Date Lou Rcistian Kacy, SASKIA [address] [place] [address] PCP - General Nurse Practitioner 12/12/20 Wedger Machine Relationship Specialty Start Date End Date MatyCristian judd CNP [address] [place] [address] PCP - General Nurse Practitioner 12/12/20 Wedger Machine Relationship Specialty Start Date End Date Lou Cristian Kacy, SASKIA [address] [place] [address] PCP - General Nurse Practitioner 12/12/20 FOR [...] BE BASED ON THE PRIMARY CLINICAL RECORDS. [facility]. provides no warranty or guarantee of the accuracy or completeness of information in this document.
[2023-05-04 11:45] VITALS: BP 135/56; PULSE 64; RESP 16; TEMP 36.2
[2023-05-04 12:03] LABS: Albumin, Serum 3.2 g/dL (3.2-5.0); BUN 54 mg/dL (7-18); BUN/Creat Ratio 28.9 RATIO (10-20); Calcium,Total 8.7 mg/dL (8.5-10.1); Chloride 114 mmol/L (98-107); Creatinine, Serum 1.87 mg/dL (0.55-1.02); EST Glomerular Filtration Rate 27 mL/min (>60); Est Glom Filt Rate - Afr Amer 33 mL/min (>60); Ferritin 84 ng/mL (8-252); Glucose 46 mg/dL (74-106); Iron 69 ug/dL (50-170); Iron Binding Capacity,Total 230 ug/dL (250-450); Phosphorus 2.9 mg/dL (2.5-4.9); Potassium 4.6 mmol/L (3.5-5.1); Sodium Level 144 mmol/L (136-145)
[2023-05-04] MEDS: Epoetin Alfa epbx 10,000 UNITS/ML 10000 UNIT SC (12:03)
== END 2023-05-04 11:05 | disposition home or self-care (01) ==
PROVIDERS: PCP Family Medicine; Referring Provider Internal Medicine Nephrology; Visit Provider Internal Medicine Nephrology
DX: N18.4 Chronic kidney disease, stage 4 (severe) (principal); D63.1 Anemia in chronic kidney disease
CPT/HCPCS: 36415; 80069; 82728; 83540; 83550; 85025; 96372; Q5106

== ENCOUNTER 2023-05-18 11:01 | Outpatient (CLI) | payer MEDICARE, OTHER, SELFPAY ==
[2023-05-18 11:16] LABS: Absolute Lymphocyte Count 1.02 X10^3/uL (0.83-4.51); Absolute Neutrophil Count 5.3 X10^3/uL (2.0-7.7); Basophil# 0.04 X10^3/uL; Basophil% 0.6 % (0-1); Eosinophil# 0.18 X10^3/uL; Eosinophils% 2.5 % (0-5); Hematocrit 30.9 % (37-47); Hemoglobin 9.9 g/dL (12.0-15.0); Lymphocyte # 1.02 X10^3/ul (0.83-4.51); Lymphocyte % 14.1 % (19-41); Mean Corpuscular Hgb 34.4 pg (27.0-32.0); Mean Corpuscular Volume 107.3 fL (81-99); Mean Platelet Vol. 9.3 fl (6.2-12.0); Monocyte# 0.63 X10^3/uL; Monocyte% 8.7 % (0-10); NRBC Flagged by Analyzer 0 % (0-5); Neutrophil # 5.32 X10^3/uL (2.7-7.7); Neutrophil % 73.8 % (47-70); Platelet Count 204 K/mm3 (150-450); RBC Distribution Width CV 13.9 % (11.6-14.6); RBC Distribution Width SD 55.2 fl (35.1-43.9); Red Blood Count 2.88 M/mm3 (4.2-5.4); White Blood Count 7.2 K/mm3 (4.4-11.0)
[2023-05-18 11:30] LABS: BUN 43 mg/dL (7-18); BUN/Creat Ratio 23.6 RATIO (10-20); Calcium,Total 8.9 mg/dL (8.5-10.1); Chloride 114 mmol/L (98-107); Creatinine, Serum 1.82 mg/dL (0.55-1.02); EST Glomerular Filtration Rate 28 mL/min (>60); Est Glom Filt Rate - Afr Amer 34 mL/min (>60); Glucose 110 mg/dL (74-106); Phosphorus 2.8 mg/dL (2.5-4.9); Potassium 4.2 mmol/L (3.5-5.1); Sodium Level 143 mmol/L (136-145)
[2023-05-18 11:34] VITALS: BP 140/52; RESP 16; TEMP 36.3
--- OUTSIDE RECORDS SUMMARY | 2023-05-18 11:46 | XMS RPT_ITS | CCD ---
Author Name Unknown Address [address] [place] [address] Organization [facility] Care Team Providers Care Buffing Wheel Raker Name Role Phone Sly Pedersen Unavailable Unavailable [...] sources) Penicillins; Translations: [PENICILLINS] Drug Allergy 9 [facility] (7 sources) Penicillins; Translations: [penicillins] Propensity to adverse reactions to drug (disorder) 9 [facility] (6 sources) Iodine; Translations: [IODINE] Drug Allergy 1 Hives, Unknown [facility] (3 sources) Penicillin; Translations: [PENICILLIN] Drug Allergy 2 [facility] Medications Current Medications Medication Drug Class(es) [...] First dose on Mon04/01/21 at 0900 calcitriol 0.25223 mg oral capsule (7 sources) Vitamin D3 [...] 98.1 [degF] Romario Andrews DPM Work Phone: [facility] 02-16-2023 16:51-0400 Diastolic blood pressure 59 mm[Hg] Romario Andrews DPM Work Phone: [facility] 02-16-2023 16:51-0400 Heart rate 75 /min Romario Andrews DPM Work Phone: [facility] 02-16-2023 16:51-0400 Systolic blood pressure 134 mm[Hg] Romarionaomie FerrerAndrews DPM Work Phone: [facility] 11-17-2022 16:30-0500 Diastolic blood pressure 72 mm[Hg] Romarionaomie FerrerAndrews DPM Work Phone: [facility] 11-17-2022 16:30-0500 Heart rate 72 /min Romarionaomie FerrerAndrews DPM Work Phone: [facility] 11-17-2022 16:30-0500 Systolic blood pressure 178 mm[Hg] Romarionaomie FerrerAndrews DPM Work Phone: [facility] 11-17-2022 16:17-0500 Body temperature 98.6 [degF] Romario Andrews DPM Work Phone: [facility] 05-12-2022 14:55-0400 Diastolic blood pressure 71 mm[Hg] Romarionaomie FerrerAndrews DPM Work Phone: [facility] 05-12-2022 14:55-0400 Heart rate 53 /min Romarionaomie FerrerAndrews DPM Work Phone: [facility] 05-12-2022 14:55-0400 Systolic blood pressure 177 mm[Hg] Romario Andrews DPM Work Phone: [facility] 05-12-2022 14:48-0400 Body temperature 99.19 [degF] Romario Andrews DPM Work Phone: [facility] 04-02-2021 12:21-0400 Diastolic blood pressure 66 mm[Hg] Fredy Horton MD Work Phone: [facility] 04-02-2021 12:21-0400 Systolic blood pressure 119 mm[Hg] Fredy Horton MD Work Phone: [facility] 04-02-2021 07:22-0400 Body temperature 98.01 [degF] Fredy Horton MD Work Phone: [facility] 04-02-2021 07:22-0400 Heart rate 54 /min Fredy Horton MD Work Phone: [facility] 04-02-2021 07:22-0400 Respiratory rate 14 /min Fredy Horton MD Work Phone: [facility] 04-02-2021 07:22-0400 SaO2% (BldA) [Mass fraction] 94 % Fredy Horton MD Work Phone: [facility] 04-01-2021 01:14-0400 Body height 167.6 cm Fredy Horton MD Work Phone: [facility] 04-01-2021 01:14-0400 Body mass index (BMI) [Ratio] 40.67 kg/m2 Fredy Horton MD Work Phone: [facility] 04-01-2021 01:14-0400 Body weight 114.31 kg Fredy Horton MD Work Phone: [facility] 12-12-2020 14:00-0400 BP Diastolic 60 mm[Hg] [facility] 12-12-2020 14:00-0400 BP Systolic 157 mm[Hg] [facility] 12-12-2020 14:00-0400 Pulse Oximetry 97 % [facility] 12-12-2020 12:02-0400 BMI (Body Mass Index) 41.97 kg/m2 [facility] 12-12-2020 12:02-0400 Body Temperature 97.59 [degF] [facility] 12-12-2020 12:02-0400 Body weight 117.94 kg [facility] 12-12-2020 12:02-0400 Height 167.6 cm [facility] 12-12-2020 12:02-0400 Pulse (Heart Rate) 67 /min [facility] 12-12-2020 12:02-0400 Respiratory Rate 16 /min [facility] Encounters Encounter Date Encounter Type Care Provider Facility Start: 02-16-2023 End: 02-16-20[facility] Start: 02-16-2023 End: 02-16-2023 Patient encounter procedure Romario Andrews DPM Work Phone: [facility] Procedures Date Procedure [...] MD Work Phone: Start: 04-01-2021 Glucose measurement [facility] Start: 12-12-2020 End: 12-12-2020 Ct [...] Start: 04-16-2028 Tetanus vaccination Tetanus: Every 10yrs [facility] Start: 05-25-2023 End: 05-25-2023 Patient encounter procedure 05/25/2023 4:15 PM EDT Office Visit [facility] Physician [facility] [address] [place] [address] Romario Andrews, DPM [address] [place] [address] [facility] Start: 02-16-2023 End: 02-16-2023 Patient encounter procedure 02/16/2023 Office Visit Podiatry Romario Andrews, SOFIYA [address] [place] [address] [facility] Start: 08-04-2022 End: 08-04-2022 Patient encounter procedure 08/04/2022 Office Visit Podiatry Romario Andrews, SOFIYA [address] [place] [address] [facility] Start: 05-19-2022 Influenza vaccination Sequential Influenza Vaccine (#1) [facility] Start: 12-18-2021 COVID-19 Vaccine (4 - Booster for Moderna series) COVID-19 Vaccine (4 - Booster for Moderna series) [facility] Start: 10-14-2021 COVID-19 Vaccine (4 - Booster for Moderna series) COVID-19 Vaccine (4 - Booster for Moderna series) [facility] Start: 05-19-2021 Influenza vaccination Sequential Influenza Vaccine (#1) [facility] Start: 09-02-2020 Pneumococcal vaccination Pneumococcal Vaccine Age 65+ (2 of 2 - [facility]V13) [facility] Start: 05-19-2020 Influenza vaccination given Sequential Influenza Vaccine (#1) [facility] Start: 04-16-2019 Pneumococcal Vaccine: Age 65+ (2 - PPSV23 or PCV20) Pneumococcal Vaccine: Age 65+ (2 - PPSV23 or PCV20) [facility] Start: 01-06-2005 Fall risk assessment Falls Risk Assessment [facility] Start: 01-06-1990 Administration of herpes zoster vaccine Zoster Vaccines (1 of 2) [facility] Start: 01-06-1959 Administration of herpes zoster vaccine Zoster Vaccines (1 of 2) [facility] Start: 1956 COVID-19 Vaccine (1) COVID-19 Vaccine (1) [facility] Start: 1952 Adolescent depression screening assessment Depression Screening (PHQ9) [facility] Start: 1952 Depression screening using PHQ-9 (Patient Health Questionnaire 9) score [facility] Start: 01-06-1950 Diabetic foot examination Foot Exam [facility] Start: 01-06-1950 Glaucoma screening Ophthalmology Exam [facility] Start: 01-06-1950 Microalbumin measurement, urine, quantitative Urine Microalbumin [facility] Start: 01-06-1950 Ophthalmic examination and evaluation Ophthalmology Exam [facility] Start: 01-06-1950 Urine screening for protein Urine Microalbumin [facility] Start: 01-06-1946 Pneumococcal Vaccine: Age 65+ (1 of 4 - PCV13) Pneumococcal Vaccine: Age 65+ (1 of 4 - PCV13) [facility] Start: 01-06-1943 History and physical examination, annual for health maintenance Wellness Visit [facility] Start: 1940 Fall risk assessment Falls Risk Assessment [facility] Start: 1940 Hemoglobin A1c measurement A1C [facility] Start: 1940 Screening for osteoporosis Dexa Scan [facility] Start: 1940 Screening mammography Mammogram [facility] Start: 1940 Tetanus vaccination Tetanus: Every 10yrs [facility] Payers Date Payer Category Payer Unknown 2014 Unknown 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 [id number] 2014-Present [id number] 2014 Unknown [id number] 2004 Medicare 2004 Medicare MEDICARE MEDICAR E PART A & B [id number] 2004-Present [place] [id number] 2004 Medicare [id number] 1940 Unknown [id number] 1940 Unknown [id number] 1940 Unknown [id number] 1940 Unknown [id number] 1940 Unknown [id number] 1940 Unknown [id number] 1940 Unknown [id number] 1940 Unknown [id number] 1940 Unknown [id number] Social History Date Type Detail Facility Start: 12-12-2020 End: 05-12-2022 Tobacco smoking status NEIS Never smoker [facility] Start: 12-12-2020 End: 05-12-2022 Tobacco use and exposure Never used [facility] Start: 12-12-2020 End: 02-16-2023 Alcohol intake Lifetime non-drinker (finding) [facility] Start: 12-12-2020 History SDOH Alcohol Frequency 1 [facility] Start: 1940 [facility] Start: 05-02-2022 End: 11-17-2022 Exposure to SARS-CoV-2 (event) Not sure [facility] Start: 12-12-2020 End: 11-17-2022 History of Social function [facility] Start: 12-12-2020 End: 11-17-2022 Alcohol Use Disorder Identification Test - Consumption [AUDIT-C] [facility] How often to you hav e a drink containing alcohol? Never [facility] Average Number of Drinks Not on file [facility] Start: 12-12-2020 Gender identity Identifies as female gender (finding) [facility] Start: 04-01-2021 Sexual orientation Heterosexual (cherry huang) [facility] Clinical Notes 04-01-2021 to 02-16-2023 Romario [...] 3 months. Procedures documented in this encounter [facility] 02-16-2023 History of Presen t illness [...] 3 months. Procedures documented in this encounter [facility] 11-17-2022 History of Presen t illness [...] 3 months. Procedures documented in this encounter [facility] 05-12-2022 History of Presen t illness Narrative Patient Name: Mony Worley MR #: [id number] : 1940 Gender: female. Date of Consultation: [...] bilateral. Neurological: Diminished bilateral feet with a Castile Carmina 5.0 7 monofilament. Patient cannot feel [...] above physician 05/12/22 documented in this encounter [facility] 04-01-2021 Miscellaneous Notes Problem: Actual or [...] normal ST Segments: ST segments normal normal MN interval normal QRS interval normal QT interval Clinical impression: non-specific ECG documented in this encounter [facility] 04-01-2021 History and physi alessandra note [facility] Medicine Inpatient H&P 04/01/[address] [facility] Patient: Mony Worley Date of : [...] normal ST Segments: ST segments normal normal MN interval normal QRS interval normal QT interval [...] with resultant grade 1 subluxation at L4-5. [employer] Workstation ID: [id number] Pending Lab and Radiology [...] for immediate consultation if requested by the SWITCH COUPLER. documented in this encounter [facility] 04-01-2021 Emergency departm ent Note Report [...] Note: NAME: Mony Worley 81 y.o. CSN: [id number] PCP: Cristian Phillip CNP ED Course / [...] Social Gatherings with Friends and Family: Attends Temple Services: Active Member of Clubs or Organizations: [...] Procedure Abnormality Status --------- ------ CBC Auto Differential[[id number]] Abnormal Final result Please view results for these tests on the individual orders. URINALYSIS LACTIC ACID, PLASMA CT Abdomen Pelvis Without Contrast Final Result 1. Mild diffuse adynamic ileus pattern without evidence of bowel obstruction. 2. Severe aortic atherosclerosis. 3. 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 [employer] Workstation ID: [id number] Procedures: Procedures Fredy Horton MD ED Physician Emergency Department (Please note that portions of this note have been completed with a voice recognition software. 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 Pt states blood glucose was 278 at [...] diabetes mellitus (HCC) [facility] Dis[facility] instructions* Attachments The following attachments cannot be sent through Care Everywhere. 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 Nephrology consultation 2. Renal ultrasound 12/09/2019 Condition at Discharge: Satisfactory Disposition at Discharge: .Home Vital Signs: T PRBPSpO2 [id number]/6492% Date/Time12/08 7: 7: 7: 7: 7:00 Range(36.7C [...] be sent through Care Everywhere. * Contusion (H[place] Konger) documented in this encounter Assessments Diagnosis Fall, initial encounter- Primary Chest wall pain Painful respiration Closed head injury, initial encounter Additional Source Comments INFORMATION SOURCE (unrecogn ized section and content) DATE CREATED AUTHOR AUTHOR'S ORGANIZ ATION 11/25/2020 [facility] DATE CREATED AUTHOR AUTHOR'S ORGANIZ ATION 04/04/2021 [facility] DATE CREATED AUTHOR AUTHOR'S ORGANIZ ATION 02/28/2023 [facility] Reason for Visit (unrecogniz ed section [...] ED Notes (unrecognized secti on and content) [facility] ED Attending Note: NAME: Mony Worley 80 y.o. CSN: [id number] PCP: Cristian Phillip CNP History: Chief Complaint: [...] file Gets together: Not on file Attends rastafari service: Not on file Active member of [...] disc bulge and mild spinal stenosis L4-5. [facility] Workstation ID: [id number] CT Lumbar Spine Without Contrast Reconstructed Preliminary Result 1. Degenerative changes of the thoracolumbar spine. No acute fracture or process is seen. 2. Degenerative grade 1 spondylolisthesis of L4 on L5 with broad-based disc bulge and mild spinal stenosis L4-5. [facility] Workstation ID: [id number] CT Chest Abdomen Pelvis [...] Leiomyomas. 6. Degenerative changes of the spine. [facility] Workstation ID: [id number] CT Cervical Spine Without Contrast Preliminary Result 1. Degenerative changes of the cervical spine with spinal stenosis at C5-6. No acute fracture. [employer] Workstation ID: [id number] CT Head Or Brain Without Contrast Final Result 1. No posttraumatic or acute intracranial abnormality is seen. 2. Expected age-related atrophy is noted. Patient does have a few small deep white matter hypodensities suggestive of incidental small lacunar infarcts. 3. Dense opacification of the right maxillary sinus suggests chronic sinus disease. Remaining included sinuses and mastoid air cells are clear. [facility] Workstation ID: [id number] ED Course / [...] head injury, initial encounter Anish Dimas MD [facility] Emergency Department (Please note that portions of [...] Provider: Maryjane Brantley RN)[phone] (Restarted - Provider: aMryjane Brantley RN)[phone] (Paused - Provider: Maryjane Brantley, [...]
Care Teams (unrecognized sec tion and content) Buffing Wheel Raker Relationship Specialty Start Date End Date Lou Cristian Kacy, SASKIA [address] [place] [address] PCP - General Nurse Practitioner 12/12/20 Buffing Wheel Raker Relationship Specialty Start Date End Date MatyCristian judd CNP [address] [place] [address] PCP - General Nurse Practitioner 12/12/20 Buffing Wheel Raker Relationship Specialty Start Date End Date Lou Cristian Kacy, SASKIA [address] [place] [address] PCP - General Nurse Practitioner 12/12/20 FOR [...] BE BASED ON THE PRIMARY CLINICAL RECORDS. [facility]. provides no warranty or guarantee of the accuracy or completeness of information in this document.
[2023-05-18] MEDS: Epoetin Alfa epbx 10,000 UNITS/ML 10000 UNIT SC (12:17)
== END 2023-05-18 11:02 | disposition home or self-care (01) ==
PROVIDERS: PCP Family Medicine; Referring Provider Internal Medicine Nephrology; Visit Provider Internal Medicine Nephrology
DX: N18.4 Chronic kidney disease, stage 4 (severe) (principal); D63.1 Anemia in chronic kidney disease
CPT/HCPCS: 36415; 80069; 85025; 96372; Q5106

== ENCOUNTER 2023-06-01 11:04 | Outpatient (CLI) | payer MEDICARE, OTHER, SELFPAY ==
[2023-06-01 11:23] LABS: Absolute Lymphocyte Count 1.41 X10^3/uL (0.83-4.51); Absolute Neutrophil Count 4.8 X10^3/uL (2.0-7.7); Basophil# 0.03 X10^3/uL; Basophil% 0.4 % (0-1); Eosinophil# 0.17 X10^3/uL; Eosinophils% 2.4 % (0-5); Hematocrit 31.6 % (37-47); Hemoglobin 9.6 g/dL (12.0-15.0); Lymphocyte # 1.41 X10^3/ul (0.83-4.51); Lymphocyte % 20.3 % (19-41); Mean Corp Hgb Conc 30.4 g/dL (32-36); Mean Corpuscular Hgb 33.9 pg (27.0-32.0); Mean Corpuscular Volume 111.7 fL (81-99); Mean Platelet Vol. 10.3 fl (6.2-12.0); Monocyte# 0.56 X10^3/uL; Monocyte% 8.1 % (0-10); NRBC Flagged by Analyzer 0 % (0-5); Neutrophil # 4.75 X10^3/uL (2.7-7.7); Neutrophil % 68.5 % (47-70); Platelet Count 222 K/mm3 (150-450); RBC Distribution Width CV 14.3 % (11.6-14.6); RBC Distribution Width SD 59.7 fl (35.1-43.9); Red Blood Count 2.83 M/mm3 (4.2-5.4); White Blood Count 6.9 K/mm3 (4.4-11.0)
--- OUTSIDE RECORDS SUMMARY | 2023-06-01 11:31 | XMS RPT_ITS | CCD ---
Author Name Unknown Address [address] [place] [address] Organization [facility] Care Team Providers Care Client Success Specialist Name Role Phone lSy Pedersen Unavailable Unavailable Sushil Odonnell Unavailable Unavailable [...] sources) Penicillins; Translations: [PENICILLINS] Drug Allergy 9 [facility] (7 sources) Penicillins; Translations: [penicillins] Propensity to adverse reactions to drug (disorder) 9 [facility] (6 sources) Iodine; Translations: [IODINE] Drug Allergy 1 Hives, Unknown [facility] (3 sources) Penicillin; Translations: [PENICILLIN] Drug Allergy 2 [facility] Medications Current Medications Medication Drug Class(es) [...] First dose on Mon04/01/21 at 0900 calcitriol 0.76200 mg oral capsule (7 sources) Vitamin D3 [...] 98.1 [degF] Romario Andrews DPM Work Phone: [facility] 02-16-2023 16:51-0400 Diastolic blood pressure 59 mm[Hg] Romario Andrews DPM Work Phone: [facility] 02-16-2023 16:51-0400 Heart rate 75 /min Romario Andrews DPM Work Phone: [facility] 02-16-2023 16:51-0400 Systolic blood pressure 134 mm[Hg] Romarionaomie FerrerAndrews DPM Work Phone: [facility] 11-17-2022 16:30-0500 Diastolic blood pressure 72 mm[Hg] Romarionaomie FerrerAndrews DPM Work Phone: [facility] 11-17-2022 16:30-0500 Heart rate 72 /min Romarionaomie FerrerAndrews DPM Work Phone: [facility] 11-17-2022 16:30-0500 Systolic blood pressure 178 mm[Hg] Romarionaomie FerrerAndrews DPM Work Phone: [facility] 11-17-2022 16:17-0500 Body temperature 98.6 [degF] Romario Andrews DPM Work Phone: [facility] 05-12-2022 14:55-0400 Diastolic blood pressure 71 mm[Hg] Romarionaomie FerrerAndrews DPM Work Phone: [facility] 05-12-2022 14:55-0400 Heart rate 53 /min Romarionaomie FerrerAndrews DPM Work Phone: [facility] 05-12-2022 14:55-0400 Systolic blood pressure 177 mm[Hg] Romario Andrews DPM Work Phone: [facility] 05-12-2022 14:48-0400 Body temperature 99.19 [degF] Romario Andrews DPM Work Phone: [facility] 04-02-2021 12:21-0400 Diastolic blood pressure 66 mm[Hg] Fredy Horton MD Work Phone: [facility] 04-02-2021 12:21-0400 Systolic blood pressure 119 mm[Hg] Fredy Horton MD Work Phone: [facility] 04-02-2021 07:22-0400 Body temperature 98.01 [degF] Fredy Horton MD Work Phone: [facility] 04-02-2021 07:22-0400 Heart rate 54 /min Fredy Horton MD Work Phone: [facility] 04-02-2021 07:22-0400 Respiratory rate 14 /min rFedy Horton MD Work Phone: [facility] 04-02-2021 07:22-0400 SaO2% (BldA) [Mass fraction] 94 % Fredy Horton MD Work Phone: [facility] 04-01-2021 01:14-0400 Body height 167.6 cm Fredy Horton MD Work Phone: [facility] 04-01-2021 01:14-0400 Body mass index (BMI) [Ratio] 40.67 kg/m2 Fredy Horton MD Work Phone: [facility] 04-01-2021 01:14-0400 Body weight 114.31 kg Fredy Horton MD Work Phone: [facility] 12-12-2020 14:00-0400 BP Diastolic 60 mm[Hg] [facility] 12-12-2020 14:00-0400 BP Systolic 157 mm[Hg] [facility] 12-12-2020 14:00-0400 Pulse Oximetry 97 % [facility] 12-12-2020 12:02-0400 BMI (Body Mass Index) 41.97 kg/m2 [facility] 12-12-2020 12:02-0400 Body Temperature 97.59 [degF] [facility] 12-12-2020 12:02-0400 Body weight 117.94 kg [facility] 12-12-2020 12:02-0400 Height 167.6 cm [facility] 12-12-2020 12:02-0400 Pulse (Heart Rate) 67 /min [facility] 12-12-2020 12:02-0400 Respiratory Rate 16 /min [facility] Encounters Encounter Date Encounter Type Care Provider Facility Start: 02-16-2023 End: 02-16-2023 [facility] Start: 02-16-2023 End: 02-16-2023 Patient encounter procedure Romario Andrews DPM Work Phone: [facility] Procedures Date Procedure [...] prim src gram/gi emsa stain bct fungi/cell rFedy Horton MD Work Phone: Start: 04-01-2021 Assay of lipase Fredy Ibarra MD Work Phone: Start: 04-01-2021 Hepatic function panel Fredy Horton MD Work Phone: Start: 04-01-2021 LAVENDER TOP Fredy Horton MD Work Phone: Start: 04-01-2021 MINT GREEN TOP Fredy Yoo MD Work Phone: Start: 04-01-2021 RAINBOW DRAW Fredy Horton MD Work Phone: Start: 04-01-2021 Glucose measurement [facility] Start: 12-12-2020 End: 12-12-2020 [...] Start: 04-16-2028 Tetanus vaccination Tetanus: Every 10yrs [facility] Start: 05-25-2023 End: 05-25-2023 Patient encounter procedure 05/25/2023 4:15 PM EDT Office Visit [facility] [address] [address] Romario Andrews, DPM [address] [place] [address] [facility] Start: 02-16-2023 End: 02-16-2023 Patient encounter procedure 02/16/2023 Office Visit Podiatry Romario Andrews, SOFIYA [address] [place] [address] [facility] Start: 08-04-2022 End: 08-04-2022 Patient encounter procedure 08/04/2022 Office Visit Podiatry Romario Andrews, SOFIYA [address] [place] [address] [facility] Start: 05-19-2022 Influenza vaccination Sequential Influenza Vaccine (#1) [facility] Start: 12-18-2021 COVID-19 Vaccine (4 - Booster for Moderna series) COVID-19 Vaccine (4 - Booster for Moderna series) [facility] Start: 10-14-2021 COVID-19 Vaccine (4 - Booster for Moderna series) COVID-19 Vaccine (4 - Booster for Moderna series) [facility] Start: 05-19-2021 Influenza vaccination Sequential Influenza Vaccine (#1) [facility] Start: 09-02-2020 Pneumococcal vaccination Pneumococcal Vaccine Age 65+ (2 of 2 - PCV13) [facility] Start: 05-19-2020 Influenza vaccination given Sequential Influenza Vaccine (#1) [facility] Start: 04-16-2019 Pneumococcal Vaccine: Age 65+ (2 - PPSV23 or PCV20) Pneumococcal Vaccine: Age 65+ (2 - PPSV23 or PCV20) [facility] Start: 01-06-2005 Fall risk assessment Falls Risk Assessment [facility] Start: 01-06-1990 Administration of herpes zoster vaccine Zoster Vaccines (1 of 2) [facility] Start: 01-06-1959 Administration of herpes zoster vaccine Zoster Vaccines (1 of 2) [facility] Start: 1956 COVID-19 Vaccine (1) COVID-19 Vaccine (1) [facility] Start: 1952 Adolescent depression screening assessment Depression Screening (PHQ9) [facility] Start: 1952 Depression screening using PHQ-9 (Patient Health Questionnaire 9) score [facility] Start: 01-06-1950 Diabetic foot examination Foot Exam [facility] Start: 01-06-1950 Glaucoma screening Ophthalmology Exam [facility] Start: 01-06-1950 Microalbumin measurement, urine, quantitative Urine Microalbumin [facility] Start: 01-06-1950 Ophthalmic examination and evaluation Ophthalmology Exam [facility] Start: 01-06-1950 Urine screening for protein Urine Microalbumin [facility] Start: 01-06-1946 Pneumococcal Vaccine: Age 65+ (1 of 4 - PCV13) Pneumococcal Vaccine: Age 65+ (1 of 4 - PCV13) [facility] Start: 01-06-1943 History and physical examination, annual for health maintenance Wellness Visit [facility] Start: 1940 Fall risk assessment Falls Risk Assessment [facility] Start: 1940 Hemoglobin A1c measurement A1C [facility] Start: 1940 Screening for osteoporosis Dexa Scan [facility] Start: 1940 Screening mammography Mammogram [facility] Start: 1940 Tetanus vaccination Tetanus: Every 10yrs [facility] Payers Date Payer Category Payer Unknown 2014 Unknown 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 [id number] 2014-Present [id number] 2014 Unknown [id number] 2004 Medicare 2004 Medicare MEDICARE MEDICAR E PART A & B [id number] 2004-Present [place] [id number] 2004 Medicare [id number] 1940 Unknown [id number] 1940 Unknown [id number] 1940 Unknown [id number] 1940 Unknown [id number] 1940 Unknown [id number] 1940 Unknown [id number] 1940 Unknown [id number] 1940 Unknown [id number] 1940 Unknown [id number] Social History Date Type Detail Facility Start: 12-12-2020 End: 05-12-2022 Tobacco smoking status ORIS Never smoker [facility] Start: 12-12-2020 End: 05-12-2022 Tobacco use and exposure Never used [facility] Start: 12-12-2020 End: 02-16-2023 Alcohol intake Lifetime non-drinker (finding) [facility] Start: 12-12-2020 History SDOH Alcohol Frequency 1 [facility] Start: 1940 [facility] Start: 05-02-2022 End: 11-17-2022 Exposure to SARS-CoV-2 (event) Not sure [facility] Start: 12-12-2020 End: 11-17-2022 History of Social function [facility] Start: 12-12-2020 End: 11-17-2022 Alcohol Use Disorder Identification Test - Consumption [AUDIT-C] [facility] How often to you hav e a drink containing alcohol? Never [facility] Average Number of Drinks Not on file [facility] Start: 12-12-2020 Gender identity Identifies as female gender (finding) [facility] Start: 04-01-2021 Sexual orientation Heterosexual (cherry huang) [facility] Clinical Notes 04-01-2021 to 02-16-2023 Romario [...] 3 months. Procedures documented in this encounter [facility] 02-16-2023 History of Presen t illness [...] 3 months. Procedures documented in this encounter [facility] 11-17-2022 History of Presen t illness [...] 3 months. Procedures documented in this encounter [facility] 05-12-2022 History of Presen t illness Narrative Patient Name: Mony Worley MR #: [id number] : 1940 Gender: female. Date of Consultation: [...] bilateral. Neurological: Diminished bilateral feet with a [place] Carmina 5.0 7 monofilament. Patient cannot feel [...] above physician 05/12/22 documented in this encounter [facility] 04-01-2021 Miscellaneous Notes Problem: Actual or [...] normal ST Segments: ST segments normal normal PA interval normal QRS interval normal QT interval Clinical impression: non-specific ECG documented in this encounter [facility] 04-01-2021 History and physi alessandra note [facility] Medicine Inpatient H&P 04/01/2021 Imelda Hirsch CNP [facility] Patient: Mony Worley Date of : [...] normal ST Segments: ST segments normal normal PA interval normal QRS interval normal QT interval [...] with resultant grade 1 subluxation at L4-5. [employer] Workstation ID: [id number] Pending Lab and Radiology [...] for immediate consultation if requested by the CHILD DEVELOPMENT SPECIALIST. documented in this encounter [facility] 04-01-2021 Emergency departm ent Note Report [...] Note: NAME: Mony Worley 81 y.o. CSN: [id number] PCP: Cristian Phillip CNP ED Course / [...] Social Gatherings with Friends and Family: Attends Muslim Services: Active Member of Clubs or Organizations: [...] Procedure Abnormality Status --------- ------ CBC Auto Differential[[id number]] Abnormal Final result Please view results for these tests on the individual orders. URINALYSIS LACTIC ACID, PLASMA CT Abdomen Pelvis Without Contrast Final Result 1. Mild diffuse adynamic ileus pattern without evidence of bowel obstruction. 2. Severe aortic atherosclerosis. 3. 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 [employer] Workstation ID: [id number] Procedures: Procedures Fredy Horton MD ED Physician Emergency Department (Please note that portions of this note have been completed with a voice recognition software. 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 Pt states blood glucose was 278 at [...] diabetes mellitus (HCC) [facility]* Attachments The following attachments cannot be sent through Care Everywhere. * Ileus: General Info (Kyrgyz) [facility] Purpose Family History No Family History Records FoundNo Family History Records FoundNo Family History Records FoundNo Family History Records Found Advance Directives No Advanced Directives Records FoundDocuments on File Type Date Recorded Patient Perioperative Educator Expl anation Advance Directives and Livin g Will 12/12/2020 12:16 PM Documents on File Type Date Recorded Patient Perioperative Educator Expl anation Advance Directives and Livin g [...] Odonnell Note Recipients: Sly Pedersen MD - [id number] [] Discharge: Summary: Admission Date: .06-Dec-2019 04:00:00 Discharge Date: 09-Dec-2019 Attending Physician at Discharge: Sushil Odonnlel Admission Reason: Nausea, vomiting and diarrhea(1) Final Discharge Diagnoses: Acute kidney injury superimposed on chronic kidney disease, Dehydration, Nausea and vomiting, Procedures: 1. Nephrology consultation 2. Renal ultrasound 12/09/2019 Condition at Discharge: Satisfactory Disposition at Discharge: .Home Vital Signs: T PRBPSpO2 Value37.98999487/6492% Date/Time12/08 7: 7: 7: 7: 7:00 Range(36.7C [...] be sent through Care Everywhere. * Contusion (Kyrgyz) documented in this encounter Assessments Diagnosis Fall, initial encounter- Primary Chest wall pain Painful respiration Closed head injury, initial encounter Additional Source Comments INFORMATION SOURCE (unrecogn ized section and content) DATE CREATED AUTHOR AUTHOR'S ORGANIZ ATION 11/25/2020 [facility] DATE CREATED AUTHOR AUTHOR'S ORGANIZ ATION 04/04/2021 [facility] DATE CREATED AUTHOR AUTHOR'S ORGANIZ ATION 02/28/2023 [facility] Reason for Visit (unrecogniz ed section and [...] (unrecognized secti on and content) [facility] ED Attending Note: NAME: Mony Worley 80 y.o. CSN: [id number] PCP: Cristian Phillip CNP History: Chief Complaint: [...] file Gets together: Not on file Attends pentecostalism service: Not on file Active member of [...] disc bulge and mild spinal stenosis L4-5. [employer] Workstation ID: [id number] CT Lumbar Spine Without Contrast Reconstructed Preliminary Result 1. Degenerative changes of the thoracolumbar spine. No acute fracture or process is seen. 2. Degenerative grade 1 spondylolisthesis of L4 on L5 with broad-based disc bulge and mild spinal stenosis L4-5. [employer] Workstation ID: [id number] CT Chest Abdomen Pelvis [...] Leiomyomas. 6. Degenerative changes of the spine. [employer] Workstation ID: [id number] CT Cervical Spine Without Contrast Preliminary Result 1. Degenerative changes of the cervical spine with spinal stenosis at C5-6. No acute fracture. [employer] Workstation ID: [id number] CT Head Or Brain Without Contrast Final Result 1. No posttraumatic or acute intracranial abnormality is seen. 2. Expected age-related atrophy is noted. Patient does have a few small deep white matter hypodensities suggestive of incidental small lacunar infarcts. 3. Dense opacification of the right maxillary sinus suggests chronic sinus disease. Remaining included sinuses and mastoid air cells are clear. [facility] Workstation ID: [id number] ED Course / [...] head injury, initial encounter Anish Dimas MD [facility] Emergency Department (Please note that portions [...]
Care Teams (unrecognized sec tion and content) Client Success Specialist Relationship Specialty Start Date End Date Lou Cristian Kacy, SASKIA [address] [place] [address] PCP - General Nurse Practitioner 12/12/20 Client Success Specialist Relationship Specialty Start Date End Date MatyCristian judd CNP [address] [place] [address] PCP - General Nurse Practitioner 12/12/20 Client Success Specialist Relationship Specialty Start Date End Date Lou Cristian Kacy, SASKIA [address] [place] [address] PCP - General Nurse Practitioner 12/12/20 FOR [...] BE BASED ON THE PRIMARY CLINICAL RECORDS. [facility]. provides no warranty or guarantee of the accuracy or completeness of information in this document.
[2023-06-01 11:33] VITALS: BP 151/64; PULSE 60; RESP 16; TEMP 35.9; O2SAT 97; BMI 39.6
[2023-06-01 11:35] LABS: BUN 41 mg/dL (7-18); BUN/Creat Ratio 26.6 RATIO (10-20); Calcium,Total 8.7 mg/dL (8.5-10.1); Chloride 114 mmol/L (98-107); Creatinine, Serum 1.54 mg/dL (0.55-1.02); EST Glomerular Filtration Rate 34 mL/min (>60); Est Glom Filt Rate - Afr Amer 41 mL/min (>60); Estimated Creatinine Clearance 25.91 ml/min; Glucose 73 mg/dL (74-106); Phosphorus 3.2 mg/dL (2.5-4.9); Potassium 4.4 mmol/L (3.5-5.1); Sodium Level 143 mmol/L (136-145)
[2023-06-01] MEDS: Epoetin Alfa epbx 10,000 UNITS/ML 10000 UNIT SC (12:20)
== END 2023-06-01 11:05 | disposition home or self-care (01) ==
PROVIDERS: PCP Family Medicine; Referring Provider Internal Medicine Nephrology; Visit Provider Internal Medicine Nephrology
DX: N18.4 Chronic kidney disease, stage 4 (severe) (principal); D63.1 Anemia in chronic kidney disease
CPT/HCPCS: 36415; 80069; 85025; 96372; Q5106

== ENCOUNTER 2023-06-16 11:27 | Outpatient (CLI) | payer MEDICARE, OTHER, SELFPAY ==
[2023-06-16 11:54] LABS: Absolute Lymphocyte Count 1.43 X10^3/uL (0.83-4.51); Absolute Neutrophil Count 3.7 X10^3/uL (2.0-7.7); Basophil# 0.05 X10^3/uL; Basophil% 0.8 % (0-1); Eosinophil# 0.24 X10^3/uL; Hematocrit 30.2 % (37-47); Hemoglobin 9.6 g/dL (12.0-15.0); Lymphocyte # 1.43 X10^3/ul (0.83-4.51); Lymphocyte % 23.9 % (19-41); Mean Corp Hgb Conc 31.8 g/dL (32-36); Mean Corpuscular Hgb 35.2 pg (27.0-32.0); Mean Corpuscular Volume 110.6 fL (81-99); Mean Platelet Vol. 10.4 fl (6.2-12.0); Monocyte# 0.58 X10^3/uL; Monocyte% 9.7 % (0-10); NRBC Flagged by Analyzer 0 % (0-5); Neutrophil # 3.67 X10^3/uL (2.7-7.7); Neutrophil % 61.4 % (47-70); Platelet Count 211 K/mm3 (150-450); RBC Distribution Width CV 13.8 % (11.6-14.6); Red Blood Count 2.73 M/mm3 (4.2-5.4)
[2023-06-16 12:10] VITALS: BP 147/50; RESP 16; TEMP 36.2
[2023-06-16] MEDS: Epoetin Alfa epbx 10,000 UNITS/ML 10000 UNIT SC (12:13)
[2023-06-16 12:40] LABS: BUN 49 mg/dL (7-18); BUN/Creat Ratio 29.2 RATIO (10-20); Calcium,Total 8.8 mg/dL (8.5-10.1); Chloride 114 mmol/L (98-107); Creatinine, Serum 1.68 mg/dL (0.55-1.02); EST Glomerular Filtration Rate 31 mL/min (>60); Est Glom Filt Rate - Afr Amer 37 mL/min (>60); Glucose 81 mg/dL (74-106); Phosphorus 2.6 mg/dL (2.5-4.9); Potassium 4.4 mmol/L (3.5-5.1); Sodium Level 142 mmol/L (136-145)
--- OUTSIDE RECORDS SUMMARY | 2023-06-16 19:01 | XMS RPT_ITS ---
Author Name Auto Generated Organization [facility] Care Team Providers Care Economist Research Assistant Name Role Phone ROMARIO BERNARD Attending Unavaila CRISTIAN Rosado Primary Care Unavailable ROMARIO BERNARD Admitting Unavaila ROMARIO Storey Referring Unavaila CRISTIAN Rosado Primary Care Unavailable CRISTIAN PHILLIP Primary Care Unavailable ROMARIO BERNARD Attending Unavaila ROMARIO Storey Attending Unavaila CRISTIAN Rosado Primary Care Unavailable ROMARIO BERNARD Attending Unavaila CRISTIAN Rosado Primary Care Unavailable ROMARIO BERNARD Attending Unavaila CRISTIAN Rosado Primary Care Unavailable PROBLEMS DATE TYPE CONDITION / CODE ATTENDING STATUS [facility] 06/01/2023 Admitting diagnosis Bunion of unspecified foot / M21.619(ICD-10) ROMARIO BERNARD Active [facility] 06/01/2023 Admitting diagnosis Corns and callosities / L84(ICD-10) ROMARIO BERNARD Active [facility] 06/01/2023 Admitting diagnosis Tinea unguium / B35.1(ICD-10) ROMARIO BERNARD Active [facility] 06/01/2023 Admitting diagnosis 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 Patient has a medial bony prominence consistent with a bunion deformity. 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 A contracted second hammertoe is noted. There is osteoporosis throughout the foot Dictated by: ROMARIO BERNARD on MonJun 01, 2023 4:55:54 PM EDT Transcribed by: ROMARIO BERNARD on MonJun 01, 2023 4:55:54 PM EDT Finalized by: ROMARIO BERNARD on Laurie Jun 01, 2023 4:55:54 PM EDT ALLERGIES DATE TYPE / CODE NAME / CODE REACTION SEVERITY SOURCE 01/18/2022 DRUG INGREDI/[id number](SNO MED CT) PENICILLIN [facility] 12/12/2020 DRUG INGREDI/[id number](SNO MED CT) IODINE [facility] 11/30/2018 Drug Class/[id number](SNOME D CT) PENICILLINS [facility] ENCOUNTERS ADMIT/DISCHARGE ACCOUNT NUMBER ADMITTING ENCOUNTER CLASS LOCATION SOURCE 06/01/2023/06/05/20 23 [id number] ROMARIO BERNARD Ambulatory Building:POD AMBRPKDG [facility] 06/01/2023/06/01/20 23 [id number] [facility] 02/16/2023/02/17/20 23 [id number] Ambulatory Building[address] [facility] 11/17/2022/11/18/19 23 [id number] Ambulatory Building:[address] [facility] 08/04/2022/08/04/20 22 [id number] Ambulatory Building:[address] [facility] 06/29/2022 [id number] Ambulatory Building:[address] [facility] PAYERS ENCOUNTER GUARANTOR PAYER SUBSCRIBER SOURCE 06/01/2023 DAYLIN ADORNOB: [address] [address]Jnp: ~(234 (HP) (WP) Primary Insurance:MEDICARE Policy Number: [id number] ve Date:7036-88-47DLF J15 PART A [id number] [place] [address]DY: DAYLIN Bao ADORNOB: [id number] [address] [address]Yfp: (HP) [facility] 06/01/2023 Secondary Insurance:[facility] Number: [id number] Date:2014-09-18 DAYLIN Gore TILAB: [id number] [address] [address]Nqz: (HP) [facility] 06/01/2023 DAYLIN Bao ADORNOB: [address] [address]Ils: ~(428 (HP) (WP) Primary Insurance:MEDICARE Policy Number: [id number] ve Date:6411-25-64KOS J15 PART A [id number] [place] [phone]: DAYLIN ADORNOB: [id number] [address] [address]Lzc: (HP) [facility] 06/01/2023 Secondary Insurance:COMMERCI ALPolicy Number: [id number] Date:2014-09-18 DAYLIN ADORNOB: [id number] [address] [address]Eed: (HP) [facility] 02/16/2023 DAYLIN ADORNOB: [address] [address]Dvo: ~(149 (HP) (WP) Primary Insurance:MEDICARE Policy Number: [id number] Date:6219-53-55UXU J15 PART A [id number] [place] [id number]: DAYLIN ADORNOB: [id number] [address] [address]Kgy: (HP) [facility] 02/16/2023 Secondary Insurance:COMMERCI [facility] Number: [id number] Date:2014-09-18 DAYLIN ADORNOB: [id number] [address]Mgg: (HP) [facility] 11/17/2022 DAYILN ADORNOB: [address] [address]Lpf: ~([phone] (HP) (WP) Primary Insurance:MEDICARE Policy Number: [id number] ve Date:6664-40-79XRL J15 PART A [id number] [place] [id number]: DAYLIN ADORNOB: [id number] [address] [address]Nxs: (HP) [facility] 11/17/2022 Secondary Insurance:COMMERCI ALPolicy Number: [id number] Date:2014-09-18 DAYLIN ADORNOB: [id number] [address] [address]Gnw: (HP) [facility] 08/04/2022 DAYLIN ADORNOB: [address] [address]Ggu: ~([phone] (HP) (WP) Primary Insurance:MEDICARE Policy Number: [id number] Date:4733-53-04IXD 15 PART A [id number] [place] [phone]: DAYLIN ADORNOB: [id number] [address] [address]Jir: (HP) [facility] 08/04/2022 Secondary Insurance:COMMERCI ALPolicy Number: [id number] Date:2014-09-18 DAYLIN ADORNOB: [id number] [address] [address]Yuo: (HP) [facility] 06/29/2022 DAYLIN ADORNOB: [address] [address]Yhz: ~[phone] (HP) (WP) Primary Insurance:MEDICARE Policy Number: [id number] ve Date:0461-69-35NMU J15 PART A [id number] [place] [id number]: DAYLIN ADORNOB: [id number] [address] [address]Tgb: () [facility] 06/29/2022 Secondary Insurance:COMMERCI ALPolicy Number: [id number] Date:2014-09-18 DAYLIN Gore [facility] ASSOCIATIONB: [id number] [address]Ycs: () [facility]
== END 2023-06-16 11:28 | disposition home or self-care (01) ==
LOC: MEDOUTP 11:27
PROVIDERS: PCP Family Medicine; Referring Provider Internal Medicine Nephrology; Visit Provider Internal Medicine Nephrology
DX: N18.4 Chronic kidney disease, stage 4 (severe) (principal); D63.1 Anemia in chronic kidney disease
CPT/HCPCS: 36415; 80069; 85025; 96372; Q5106

== ENCOUNTER 2023-06-29 11:13 | Outpatient (CLI) | payer MEDICARE, OTHER, SELFPAY ==
[2023-06-29 11:36] LABS: Absolute Lymphocyte Count 1.23 X10^3/uL (0.83-4.51); Absolute Neutrophil Count 4.6 X10^3/uL (2.0-7.7); Basophil# 0.05 X10^3/uL; Basophil% 0.8 % (0-1); Eosinophil# 0.21 X10^3/uL; Eosinophils% 3.2 % (0-5); Hematocrit 30.7 % (37-47); Hemoglobin 9.4 g/dL (12.0-15.0); Lymphocyte # 1.23 X10^3/ul (0.83-4.51); Lymphocyte % 18.6 % (19-41); Mean Corp Hgb Conc 30.6 g/dL (32-36); Mean Corpuscular Hgb 33.5 pg (27.0-32.0); Mean Corpuscular Volume 109.3 fL (81-99); Mean Platelet Vol. 10.1 fl (6.2-12.0); Monocyte# 0.55 X10^3/uL; Monocyte% 8.3 % (0-10); NRBC Flagged by Analyzer 0 % (0-5); Neutrophil # 4.56 X10^3/uL (2.7-7.7); Neutrophil % 68.6 % (47-70); Platelet Count 242 K/mm3 (150-450); RBC Distribution Width CV 12.9 % (11.6-14.6); RBC Distribution Width SD 52.2 fl (35.1-43.9); Red Blood Count 2.81 M/mm3 (4.2-5.4); White Blood Count 6.6 K/mm3 (4.4-11.0)
[2023-06-29 11:47] VITALS: BP 154/48; PULSE 61; RESP 16; TEMP 36.3; O2SAT 96
[2023-06-29 11:47] LABS: BUN 50 mg/dL (7-18); BUN/Creat Ratio 29.1 RATIO (10-20); Calcium,Total 8.8 mg/dL (8.5-10.1); Chloride 116 mmol/L (98-107); Creatinine, Serum 1.72 mg/dL (0.55-1.02); EST Glomerular Filtration Rate 30 mL/min (>60); Est Glom Filt Rate - Afr Amer 36 mL/min (>60); Glucose 87 mg/dL (74-106); Phosphorus 2.8 mg/dL (2.5-4.9); Potassium 4.3 mmol/L (3.5-5.1); Sodium Level 145 mmol/L (136-145)
[2023-06-29] MEDS: Epoetin Alfa epbx 10,000 UNITS/ML 10000 UNIT SC (12:09)
== END 2023-06-29 11:14 | disposition home or self-care (01) ==
LOC: MEDOUTP 11:13
PROVIDERS: PCP Family Medicine; Referring Provider Internal Medicine Nephrology; Visit Provider Internal Medicine Nephrology
DX: N18.4 Chronic kidney disease, stage 4 (severe) (principal); D63.1 Anemia in chronic kidney disease
CPT/HCPCS: 36415; 80069; 85025; 96372; Q5106

== ENCOUNTER 2023-07-13 11:04 | Outpatient (CLI) | payer MEDICARE, OTHER, SELFPAY ==
[2023-07-13 11:35] LABS: Absolute Lymphocyte Count 1.28 X10^3/uL (0.83-4.51); Absolute Neutrophil Count 5.2 X10^3/uL (2.0-7.7); Basophil# 0.05 X10^3/uL; Basophil% 0.7 % (0-1); Eosinophil# 0.27 X10^3/uL; Eosinophils% 3.6 % (0-5); Hematocrit 29.6 % (37-47); Hemoglobin 9.1 g/dL (12.0-15.0); Lymphocyte # 1.28 X10^3/ul (0.83-4.51); Lymphocyte % 17.3 % (19-41); Mean Corp Hgb Conc 30.7 g/dL (32-36); Mean Corpuscular Hgb 33.8 pg (27.0-32.0); Mean Platelet Vol. 9.8 fl (6.2-12.0); Monocyte# 0.58 X10^3/uL; Monocyte% 7.8 % (0-10); NRBC Flagged by Analyzer 0 % (0-5); Neutrophil % 70.2 % (47-70); Platelet Count 220 K/mm3 (150-450); RBC Distribution Width CV 12.3 % (11.6-14.6); RBC Distribution Width SD 49.8 fl (35.1-43.9); Red Blood Count 2.69 M/mm3 (4.2-5.4); White Blood Count 7.4 K/mm3 (4.4-11.0)
[2023-07-13 11:52] VITALS: BP 132/44; PULSE 64; RESP 16; TEMP 35.9; O2SAT 94
[2023-07-13 11:57] LABS: BUN 51 mg/dL (7-18); Calcium,Total 8.9 mg/dL (8.5-10.1); Chloride 114 mmol/L (98-107); Creatinine, Serum 1.82 mg/dL (0.55-1.02); EST Glomerular Filtration Rate 28 mL/min (>60); Est Glom Filt Rate - Afr Amer 34 mL/min (>60); Glucose 126 mg/dL (74-106); Phosphorus 2.7 mg/dL (2.5-4.9); Potassium 4.3 mmol/L (3.5-5.1); Sodium Level 143 mmol/L (136-145)
[2023-07-13 12:05] LABS: Protein, Urine (Random) 102.4 mg/dL (<11.9); Protein:Creat Ratio 1865 mg/g CRE (0-200)
[2023-07-13] MEDS: Epoetin Alfa-EPBX 20,000 unit/ml 12000 UNIT SC (12:05)
[2023-07-13 12:15] LABS: PTHIN 174.8 pg/mL (18.4-80.1)
[2023-07-13 12:18] LABS: Vitamin D,25 Hydroxy 31.8 ng/mL
== END 2023-07-13 11:05 | disposition home or self-care (01) ==
PROVIDERS: PCP Family Medicine; Referring Provider Internal Medicine Nephrology; Visit Provider Internal Medicine Nephrology
DX: N18.4 Chronic kidney disease, stage 4 (severe) (principal); N25.81 Secondary hyperparathyroidism of renal origin; D63.1 Anemia in chronic kidney disease; E55.9 Vitamin D deficiency, unspecified
CPT/HCPCS: 36415; 80069; 82306; 82570; 83970; 84156; 85025; 96372; Q5106

== ENCOUNTER 2023-07-27 11:09 | Outpatient (CLI) | payer MEDICARE, OTHER, SELFPAY ==
--- OUTSIDE RECORDS SUMMARY | 2023-07-27 11:50 | XMS RPT_ITS | CCD ---
Author Name Unknown Address [address] [place] [address] Organization [facility] Care Team Providers Care Student Loan Counselor Name Role Phone Sly Pedersen Unavailable Unavailable Sushil Odonnell Unavailable Unavailable Sushil Odonnell Unavailable Unavailable Jefry Navarrete Unavailable Unavailable Jefry Navarrete Unavailable Unavailable Sly Pedersen Unavailable Unavailable Cristian Phillip Primary Care Provider Cristian Phillip CNP Primary Care Provider Cristian Phillip CNP Primary Care Provider Cristian Phillip CNP Primary Care Provider ROMARIO ANDREWS Attending Unavaila CRISTIAN Rosado Primary Care Unavailable ROMARIO ANDREWS Attending Unavaila CRISTIAN Rosado Primary Care Unavailable CRISTIAN PHILLIP Primary Care Unavailable ROMARIO ANDREWS Attending UnavailROMARIO Martinez Admitting Unavaila ROMARIO Storey Referring Unavaila CRISTIAN Rosado Primary Care Unavailable ROMARIO ANDREWS Attending Unavaila CRISTIAN Rosado Primary Care Unavailable ROMARIO ANDREWS Attending Unavaila CRISTIAN Rosado Primary Care Unavailable CRISTIAN PHILLIP Primary Care Unavailable TAMMY LLOYD Attending Unavailable Allergies Allergy Classification Reported Allergen(s) Allergy Type Date of Onset Reaction(s) Facility Iodine (and Iodine containting drugs) (1 source) Iodine Drug Allergy 1 Hives [facility] Penicillins (antibiotic) (1 source) Penicillins Drug Allergy 9 [facility] (9 sources) Penicillins; Translations: [penicillins] Propensity to adverse reactions to drug (disorder) 9 [facility] Rep[facility] (7 sources) Iodine; Translations: [IODINE] Drug Allergy 1 Hives, Unknown [facility] (5 sources) Penicillin; Translations: [PENICILLIN] Drug Allergy 2 [facility] (1 source) Iodine Drug Allergy 1 Hives, Unknown [facility] Medications Current Medications Medication Drug Class(es) Dates Sig (Normalized) Sig (Original) aspirin 81 mg chewable tablet (8 sources) Platelet Aggregation Inhibitor, Nonsteroidal Anti-inflammatory Drug [...] 08/10/2022 Active doxazosin 4 mg oral tablet (8 sources) alpha-Adrenergic Fozia Start: 11-21-2020 End: 04-02-2021 take 1 tablet by mouth once daily doxazosin (CARDURA) 4 MG tablet Take 1 (one) tablet (4 mg total) by mouth daily . 0 11/21/2020 Active ergocalciferol 1.25 mg oral capsule (3 sources) Provitamin D2 Compound Start: 01-17-2023 take 1 capsule by mouth every week ergocalciferol (ERGOCALCIFEROL) 1,250 mcg (50,000 unit) capsule TAKE 1 CAPSULE BY MOUTH ONCE A WEEK FOR 90 DAYS 0 01/17/2023 Active furosemide 40 mg oral tablet (7 sources) Loop Diuretic take 1 tablet by mouth once daily furosemide (LASIX) 40 MG tablet Take 1 (one) tablet (40 mg total) by mouth daily . 0 Active insulin detemir 100 unt/ml injectable solution (7 sources) Insulin Analog Start: 11-21-2020 inject 40 [IU] by subcutaneous injection once daily in the morning Levemir U-100 Insulin 100 unit/mL injection Inject 40 (forty) Units under the skin every morning . 0 11/21/2020 Active lisinopril 40 mg oral tablet (4 sources) Angiotensin Converting Enzyme Inhibitor Start: 11-14-2022 [...] at 0550 atorvastatin 40 mg oral tablet (8 sources) HMG-CoA Reductase Inhibitor Start: 04-01-2021 End: 04-02-2021 take 40 mg by mouth once daily 40 mg, Oral, Daily, First dose on Mon04/01/21 at 0900 calcitriol 0.22371 mg oral capsule (8 sources) Vitamin D3 Analog Start: 04-02-2021 End: [...] hydrochloride 300 mg extended release oral tablet (8 sources) Calcium Channel Fozia Start: 04-01-2021 End: 04-02-2021 take 300 mg by mouth once daily 300 mg, Oral, Daily, First dose on Mon04/01/21 at 0900 DO NOT CRUSH OR CHEW. Problems Active Problems Problem Classification Problem Date Documented Date Episodic/Chronic Acquired foot deformities (1 source) Acquired hammer toes of bilateral feet; Translations: [Other hammer toe(s) (acquired), right foot] Chronic Acquired foot deformities (4 sources) Hallux valgus; Translations: [Bunion of right foot] Onset: 06-01-2023 Episodic Chronic kidney disease (1 source) Chronic kidney disease; Translations: [Chronic kidney disease, unspecified] Chronic Diabetes mellitus with complications (7 sources) Mononeuropathy due to type 2 diabetes mellitus; Translations: [Type 2 diabetes mellitus with diabetic mononeuropathy] Onset: 11-17-2022 Chronic Diabetes mellitus without complication (2 sources) Type 2 diabetes mellitus without complications; Translations: [Type 2 diabetes mellitus without complications] Onset: 07-22-2023 Chronic External cause codes: Fall (1 source) Fall; Translations: [Fall, initial encounter] Nausea and vomiting (1 source) Nausea, vomiting and diarrhea; Translations: [Nausea with vomiting, unspecified] Episodic Nonspecific chest pain (1 source) Chest wall pain; Translations: [Chest wall pain] Episodic Other aftercare (2 sources) 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; Translations: [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] Onset: 07-22-2023 Episodic Other endocrine disorders (2 sources) Hypoglycemia, unspecified; Translations: [Hypoglycemia, unspecified] Onset: 07-22-2023 Chronic Other injuries and conditions due to external causes (1 source) Closed injury of head; Translations: [Closed head injury, initial encounter] Episodic Other skin disorders (2 sources) Foot callus; Translations: [Corns and callosities] Episodic Other skin disorders (2 sources) Corns and callosities; Translations: [Corns and callosities] Onset: 06-01-2023 Episodic Varicose veins of lower extremity (1 source) Varicose veins of lower limb co-occurrent with edema; Translations: [Varicose veins of bilateral lower extremities with other complications] Episodic Past or Other Problems Problem Classification Problem Date Documented Da te Episodic/Chronic Intestinal obstruction without hernia (7 sources) Intestinal obstruction co-occurrent and due to decreased peristalsis; Translations: [Ileus, unspecified] Onset: 04-01-2021 Episodic Mycoses (7 sources) Onychomycosis; Translations: [Tinea unguium] Onset: 03-02-2023 Episodic Results Test Name Value Interpretation Reference Range Facil ity Vital Signs Date Time Vital Sign Value Performing Clinician [facility] 06-01-2023 16:24-0400 Diastolic blood pressure 50 mm[Hg] Romario Cuellarman DPM Work Phone: [facility] 06-01-2023 16:24-0400 Heart rate 56 /min Romario Andrews DPM Work Phone: [facility] 06-01-2023 16:24-0400 Systolic blood pressure 124 mm[Hg] Romario Cuellarman DPM Work Phone: [facility] 06-01-2023 16:18-0400 Body temperature 98.29 [degF] Romario Cuellarman DPM Work Phone: [facility] 02-16-2023 16:51-0400 Body temperature 98.1 [degF] Romario Cuellarman DPM Work Phone: [facility] 02-16-2023 16:51-0400 Diastolic blood pressure 59 mm[Hg] Romario Cuellarman DPM Work Phone: [facility] 02-16-2023 16:51-0400 Heart rate 75 /min Romario Cuellarman DPM Work Phone: [facility] 02-16-2023 16:51-0400 Systolic blood pressure 134 mm[Hg] Romario Cuellarman DPM Work Phone: [facility] 11-17-2022 16:30-0500 Diastolic blood pressure 72 mm[Hg] Romario Cuellarman DPM Work Phone: [facility] 11-17-2022 16:30-0500 Heart rate 72 /min Romario Cuellarman DPM Work Phone: [facility] 11-17-2022 16:30-0500 Systolic blood pressure 178 mm[Hg] Romario Cuellarman DPM Work Phone: [facility] 11-17-2022 16:17-0500 Body temperature 98.6 [degF] Romario Cuellarman DPM Work Phone: [facility] 05-12-2022 14:55-0400 Diastolic blood pressure 71 mm[Hg] Romario Andrews DPM Work Phone: [facility] 05-12-2022 14:55-0400 Heart rate 53 /min Romario Andrews DPM Work Phone: [facility] 05-12-2022 14:55-0400 Systolic blood pressure 177 mm[Hg] Romario Andrews DPM Work Phone: [facility] 05-12-2022 14:48-0400 Body temperature 99.19 [degF] Romario Andrews DPM Work Phone: [facility] 04-02-2021 12:21-0400 Diastolic blood pressure 66 mm[Hg] Fredy Horton MD Work Phone: [facility] 04-02-2021 12:21-0400 Systolic blood pressure 119 mm[Hg] Fredy Horton MD Work Phone: [facility] 04-02-2021 07:22-0400 Body temperature 98.01 [degF] Fredy Horton MD Work Phone: [facility] 04-02-2021 07:22-0400 Heart rate 54 /min Fredy Horton MD Work Phone: [facility] 04-02-2021 07:22-0400 Respiratory rate 14 /min Fredy Horton MD Work Phone: [facility] 04-02-2021 07:22-0400 SaO2% (BldA) [Mass fraction] 94 % Fredy Horton MD Work Phone: [facility] 04-01-2021 01:14-0400 Body height 167.6 cm Fredy Horton MD Work Phone: [facility] 04-01-2021 01:14-0400 Body mass index (BMI) [Ratio] 40.67 kg/m2 Fredy Horton MD Work Phone: [facility] 04-01-2021 01:14-0400 Body weight 114.31 kg Fredy Horton MD Work Phone: [facility] 12-12-2020 14:00-0400 BP Diastolic 60 mm[Hg] [facility] 12-12-2020 14:00-0400 BP Systolic 157 mm[Hg] [facility] 12-12-2020 14:00-0400 Pulse Oximetry 97 % [facility] 12-12-2020 12:02-0400 BMI (Body Mass Index) 41.97 kg/m2 [facility] 12-12-2020 12:02-0400 Body Temperature 97.59 [degF] [facility] 12-12-2020 12:02-0400 Body weight 117.94 kg [facility] 12-12-2020 12:02-0400 Height 167.6 cm [facility] 12-12-2020 12:02-0400 Pulse (Heart Rate) 67 /min [facility] 12-12-2020 12:02-0400 Respiratory Rate 16 /min [facility] Encounters Encounter Date Encounter Type Care Provider Facility Start: 07-22-2023 End: 07-22-2023 Emergency department patient visit [facility] Start: 06-01-2023 End: 06-05-2023 ambulatory ROMARIO ANDREWS [facility] Start: 06-01-2023 End: 06-01-2023 Patient encounter procedure Romario Andrews DPM Work Phone: [facility] Procedures Date Procedure Procedure Detail Performing Clinician Start: 05-12-2022 ANTIEMBOLISM STOCKINGS Romario Andrews DPM Work Phone: Start: 04-02-2021 Glucose measurement Chas joanie Ortiz MD Work Phone: Start: 04-02-2021 Glucose measurement Chas Ortiz MD Work Phone: Start: 04-02-2021 Comprehensive metabolic panel Imelda Hirsch CNP Work Phone: Start: 04-01-2021 Urnls [...] MD Work Phone: Start: 04-01-2021 Glucose measurement [facility] Start: 12-12-2020 End: 12-12-2020 Ct thoracic spine w/o contrast material Arnie Dimas Work Phone: Start: 12-12-2020 CT of chest, abdomen and pelvis without contrast Arnie Dimas Work Phone: Start: 12-12-2020 CT cervical spine wi thout contrast Arnie Dimas Work Phone: Start: 12-12-2020 CT of head without contrast Arnie Dimas Work Phone: Start: 12-12-2020 LIGHT BLUE TOP Arnie Pa tel Work Phone: Start: 12-12-2020 RAINBOW DRAW Arnie Howard l Work Phone: Start: 12-12-2020 Basic metabolic 1998 panel - Serum or Plasma Arnie Dimas Work Phone: Start: 12-12-2020 Complete blood count with white cell differential, automated Arnie Dimas Work Phone: Start: 12-12-2020 Complete blood count with white cell differential, manual Arnie Dimas Work Phone: Plan of Treatment Date Care Activity Detail Author Start: 04-16-2028 Tetanus vaccination Tetanus: Every 10yrs [facility] Start: 08-31-2023 End: 08-31-2023 Patient encounter procedure 08/31/2023 4:15 PM EST Office Visit [facility] [address] [place] [address] Romario Andrews DPM [address] [place] [address] [facility] Start: 05-25-2023 End: 05-25-2023 Patient encounter procedure 05/25/2023 4:15 PM EDT Office Visit [facility] [address] [place] [address] Romario Andrews DPM [address] [place] [address] [facility] Start: 05-19-2023 Influenza vaccination Sequential Influenza Vaccine (#1) [facility] Start: 02-16-2023 End: 02-16-2023 Patient encounter procedure 02/16/2023 Office Visit Podiatry Romario Andrews, DPM [address] [place] [address] [facility] Start: 08-04-2022 End: 08-04-2022 Patient encounter procedure 08/04/2022 Office Visit Podiatry Romario Andrews, GARLANDM [address] [place] [address] [facility] Physician [facility] Start: 05-19-2022 Influenza vaccination Sequential Influenza Vaccine (#1) [facility] Start: 12-18-2021 COVID-19 Vaccine (4 - Booster for Moderna series) COVID-19 Vaccine (4 - Booster for Moderna series) [facility] Start: 10-14-2021 COVID-19 Vaccine (4 - Booster for Moderna series) COVID-19 Vaccine (4 - Booster for Moderna series) [facility] Start: 10-14-2021 COVID-19 Vaccine (4 - Moderna series) COVID-19 Vaccine (4 - Moderna series) [facility] Start: 05-19-2021 Influenza vaccination Sequential Influenza Vaccine (#1) [facility] Start: 09-02-2020 Pneumococcal vaccination Pneumococcal Vaccine Age 65+ (2 of 2 - PCV13) [facility] Start: 05-19-2020 Influenza vaccination given Sequential Influenza Vaccine (#1) [facility] Start: 04-16-2019 Pneumococcal Vaccine: Age 65+ (2 - PPSV23 or PCV20) Pneumococcal Vaccine: Age 65+ (2 - PPSV23 or PCV20) [facility] Start: 01-06-2005 Fall risk assessment Falls Risk Assessment [facility] Start: 01-06-1990 Administration of herpes zoster vaccine Zoster Vaccines (1 of 2) [facility] Start: 01-06-1959 Administration of herpes zoster vaccine Zoster Vaccines (1 of 2) [facility] Start: 1956 COVID-19 Vaccine (1) COVID-19 Vaccine (1) [facility] Start: 1952 Adolescent depression screening assessment Depression Screening (PHQ9) [facility] Start: 1952 Depression screening using PHQ-9 (Patient Health Questionnaire 9) score [facility] Start: 01-06-1950 Diabetic foot examination Foot Exam [facility] Start: 01-06-1950 Glaucoma screening [facility] Start: 01-06-1950 Microalbumin measurement, urine, quantitative Urine Microalbumin [facility] Start: 01-06-1950 Ophthalmic examination and evaluation Ophthalmology Exam [facility] Start: 01-06-1950 Urine screening for protein Urine Microalbumin [facility] Start: 01-06-1946 Pneumococcal Vaccine: Age 65+ (1 of 4 - PCV13) Pneumococcal Vaccine: Age 65+ (1 of 4 - PCV13) [facility] Start: 01-06-1943 History and physical examination, annual for health maintenance Wellness Visit [facility] Start: 1940 Fall risk assessment Falls Risk Assessment [facility] Start: 1940 Hemoglobin A1c measurement A1C [facility] Start: 1940 Screening for osteoporosis Dexa Scan [facility] Start: 1940 Screening mammography Mammogram [facility] Start: 1940 Tetanus vaccination Tetanus: Every 10yrs [facility] Payers Date Payer Category Payer Unknown 2014 Unknown 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 1940 Unknown [id number] 1940 Unknown [id number] Social History Date Type Detail Facility Start: 12-12-2020 End: 05-12-2022 Tobacco smoking status OKIS Never smoker [facility] Start: 12-12-2020 End: 05-12-2022 Tobacco use and exposure Never used [facility] Start: 12-12-2020 End: 06-01-2023 Alcohol intake Lifetime non-drinker (finding) [facility] Start: 12-12-2020 History SDOH Alcohol Frequency 1 [facility] Start: 1940 [facility] Start: 05-02-2022 End: 11-17-2022 Exposure to SARS-CoV-2 (event) Not sure [facility] Start: 12-12-2020 End: 02-16-2023 History of Social function [facility] Start: 12-12-2020 End: 02-16-2023 Alcohol Use Disorder Identification Test - Consumption [AUDIT-C] [facility] How often to you hav e a drink containing alcohol? Never [facility] Average Number of Drinks Not [facility] Start: 12-12-2020 Gender identity Identifies as female gender (finding) [facility] Start: 04-01-2021 Sexual orientation Heterosexual (fin ding) [facility] Clinical Notes 04-01-2021 to 06-01-2023 Romario Andrews, DPM - 06/01/2023 4:57 PM Anabella Nawaf Andrews, SOFIYA - 02/16/2023 4:46 PM CierraRomario, SOFIYA - 02/16/2023 4:46 PM EDT Note Date & Type Note Facility 06-01-2023 History of Presen t illness Narrative Patient: Mony Worley Date of : 1940 (83 y.o.) PCP: Cristian Phillip, MATERIAL CHECKER Procedures I debrided toenails 1 through 5 bilateral feet with nail nippers. I debrided the callus off the first metatarsal of the right foot with a nipper. ASSESSMENT/PLAN: Mony Worley 83 y.o. female with history of bilateral bunions. Onychomycosis of toenails 1 through 5 with neuropathy bilateral feet. Callus of the right foot. Plan: Patient was advised to have her diabetic shoes stretched to accommodate the bunion deformity. If this does not work we will order new diabetic extra-depth shoes. Ultimately she may benefit from a bunionectomy to limit the rubbing problem. Reappoint 3 months Assessment & plan notes cannot be loaded without a specified hospital service. SUBJECTIVE: History Since Last Visit: Patient 83-year-old female seen at the office with a bunion and callus on the right foot that is bothering her. Patient also like to have her fungal toenails trimmed on both feet. Review of Systems: Type 2 diabetes OBJECTIVE: Physical Examination: Integument-there is a callus on the medial side of the first metatarsal of the right foot. Toenails 1 through 5 are long thick yellow dystrophic crumbly with subungual debris. Neuro-diminished bilateral feet Musculoskeletal-medial bony prominence of the first metatarsal head of both feet. Vascular-DP PT pulses are palpable bilateral feet. BP (!) 124/50 (BP Location: Left arm, Patient Position: Sitting, BP Cuff Size: Adult) Pulse (!) 56 Temp 98.3 F (36.8 C) (Infrared) Laboratory and Additional Data Reviewed: Reviewed:[id number]} XR Foot Right 3+ Views (Standard) X-rays 3 views right foot: There is calcification of the capsule of the first metatarsal phalange joint. Patient has a medial bony prominence consistent with a bunion deformity. 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 A contracted second hammertoe is noted. There is osteoporosis throughout the foot documented in this encounter [facility] 02-16-2023 History of Presen t illness Narrative [...] 3 months. Procedures documented in this encounter [facility] 02-16-2023 History of Presen t illness Narrative [...] 3 months. Procedures documented in this encounter [facility] 11-17-2022 History of Presen t illness Narrative [...] 3 months. Procedures documented in this encounter [facility] 05-12-2022 History of Presen t illness Narrative Patient Name: Mony Worley MR #: [id number] : 1940 Gender: female. Date of Consultation: 05/12/2022. Author: MANUEL Adams Physicians: Cristian Phillip CNP (Family); No ref. [...] bilateral. Neurological: Diminished bilateral feet with a [place] Carmina 5.0 7 monofilament. Patient cannot feel [...] above physician 05/12/22 documented in this encounter [facility] 04-01-2021 Miscellaneous Notes Problem: Actual or potential [...] normal ST Segments: ST segments normal normal OR interval normal QRS interval normal QT interval Clinical impression: non-specific ECG documented in this encounter [facility] 04-01-2021 History and physi alessandra note [facility] Medicine Inpatient H&P 04/01/2021 Imelda Hirsch CNP [facility] Patient: Mony Worley Date of : 1940 [...] normal ST Segments: ST segments normal normal OR interval normal QRS interval normal QT interval [...] with resultant grade 1 subluxation at L4-5. Zemanta/Ium Workstation ID: [id number] Pending Lab and Radiology Results Order Current Status Stool/GI PCR Panel (Includes Ova and Parasites) In process WBC Stain-Stool (Fecal Leukocytes) In process Interpretation of Testing: I personally reviewed the EKG, Chest X-ray and CT A/P and agree with the interpretation(s). Associated attestation - Chandu Ortiz MD - 04/01/2021 11:14 PM EDT Patient seen and managed independently by SASKIA. I did not participate in the care of this patient, but was available for immediate consultation if requested by the MATERIAL CHECKER. documented in this encounter [facility] 04-01-2021 Emergency departm ent Note Report given [...] light within reach. ED Physician Note: NAME: Moyn Worley 81 y.o. CSN: [id number] PCP: Cristian Phillip CNP ED Course / [...] Social Gatherings with Friends and Family: Attends [employer] Services: Active Member of Clubs or Organizations: [...] Procedure Abnormality Status --------- ------ CBC Auto Differential[[id number]] Abnormal Final result Please view results for these tests on the individual orders. URINALYSIS LACTIC ACID, PLASMA CT Abdomen Pelvis Without Contrast Final Result 1. Mild diffuse adynamic ileus pattern without evidence of bowel obstruction. 2. Severe aortic atherosclerosis. 3. 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 InbiomotionD/Ium Workstation ID: [id number] Procedures: Procedures Fredy Horton MD ED Physician Emergency Department (Please note that portions of this note have been completed with a voice recognition software. 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 Nephrology consultation 2. Renal ultrasound 12/09/2019 Condition at Discharge: Satisfactory Disposition at Discharge: .Home Vital Signs: T PRBPSpO2 [id number]/6492% Date/Time12/08 7: 7: 7: 7: 7:00 Range(36.7C [...] be sent through Care Everywhere. * Contusion (Arabic) documented in this encounter Assessments Diagnosis Fall, initial encounter- Primary Chest wall pain Painful respiration Closed head injury, initial encounter Additional Source Comments INFORMATION SOURCE (unrecogn ized section and content) DATE CREATED AUTHOR AUTHOR'S ORGANIZ ATION 11/25/2020 [facility] DATE CREATED AUTHOR AUTHOR'S ORGANIZ ATION 06/05/2023 [facility] DATE CREATED AUTHOR AUTHOR'S ORGANIZ ATION 07/23/2023 [facility] Reason for Visit (unrecogniz ed section and [...] Reason Comments Nail Care Diabetic nail care Reason Comments Nail Care Diabetic a1c 6.2 Arnie Dimas MD - 12/12/2020 12:47 PM EDTPUli young II, RN - 12/12/2020 12:00 PM EDTSheryl Carias - 12/12/2020 11:59 AM EDT ED Notes (unrecognized secti on and content) [facility] ED Attending Note: NAME: Mony Worley 80 y.o. CSN: [id number] PCP: Cristian Phillip CNP History: Chief Complaint: [...] file Gets together: Not on file Attends mandaen service: Not on file Active member of [...] disc bulge and mild spinal stenosis L4-5. [employer] Workstation ID: [id number] CT Lumbar Spine Without Contrast Reconstructed Preliminary Result 1. Degenerative changes of the thoracolumbar spine. No acute fracture or process is seen. 2. Degenerative grade 1 spondylolisthesis of L4 on L5 with broad-based disc bulge and mild spinal stenosis L4-5. [employer] Workstation ID: [id number] CT Chest Abdomen Pelvis [...] Leiomyomas. 6. Degenerative changes of the spine. [email or web address] Workstation ID: [id number] CT Cervical Spine Without Contrast Preliminary Result 1. Degenerative changes of the cervical spine with spinal stenosis at C5-6. No acute fracture. [place]/[employer] Workstation ID: [id number] CT Head Or Brain Without Contrast Final Result 1. No posttraumatic or acute intracranial abnormality is seen. 2. Expected age-related atrophy is noted. Patient does have a few small deep white matter hypodensities suggestive of incidental small lacunar infarcts. 3. Dense opacification of the right maxillary sinus suggests chronic sinus disease. Remaining included sinuses and mastoid air cells are clear. [facility] Workstation ID: [id number] ED Course / Medical [...] pain 3. Closed head injury, initial encounter Arnie Dimas MD [facility] Emergency Department (Please note that portions of this note have been completed with a voice recognition software. Efforts were made to correct any errors, but occasionally words are mis-transcribed.) Arnie Dimas MD 12/12/20 1408 Pt presents to [...] Maryjane Brantley RN)1506 (Paused - Provider: Maryjane Brantley RN)1506 (Paused - Provider: Maryjane Brantley RN)1506 (Paused - Provider: Maryjane Brantley RN)1507 (Paused - Provider: Maryjane Brantley, RN)1507 [...] Maryjane Brantley RN)2302 (Restarted - Provider: Maryjane Brantley RN) 0200 (Rate/Dose Verify - Provider: Maryjane [...]
Care Teams (unrecognized sec tion and content) Student Loan Counselor Relationship Specialty Start Date End Date Cristian Phillip SASKIA Woodruff [address] [place] [address] PCP - General Nurse Practitioner 12/12/20 Student Loan Counselor Relationship Specialty Start Date End Date Lou Cristianrogelio Woodruff CNP [address] [place] [address] PCP - General Nurse Practitioner 12/12/20 Student Loan Counselor Relationship Specialty Start Date End Date Lou Cristian Kacy, SASKIA [address] [place] [address] PCP - General Nurse Practitioner 12/12/20 Student Loan Counselor Relationship Specialty Start Date End Date Lou Cristian SASKIA Woodruff [address] [place] [address] PCP - General Nurse Practitioner 12/12/20 FOR [...] BE BASED ON THE PRIMARY CLINICAL RECORDS. [facility]. provides no warranty or guarantee of the accuracy or completeness of information in this document.
[2023-07-27 11:56] LABS: Absolute Lymphocyte Count 1.61 X10^3/uL (0.83-4.51); Absolute Neutrophil Count 4.4 X10^3/uL (2.0-7.7); Basophil# 0.03 X10^3/uL; Basophil% 0.4 % (0-1); Eosinophil# 0.37 X10^3/uL; Eosinophils% 5.2 % (0-5); Hematocrit 31.8 % (37-47); Hemoglobin 9.5 g/dL (12.0-15.0); Lymphocyte # 1.61 X10^3/ul (0.83-4.51); Lymphocyte % 22.5 % (19-41); Mean Corp Hgb Conc 29.9 g/dL (32-36); Mean Corpuscular Hgb 33.2 pg (27.0-32.0); Mean Corpuscular Volume 111.2 fL (81-99); Monocyte# 0.72 X10^3/uL; Monocyte% 10.1 % (0-10); NRBC Flagged by Analyzer 0 % (0-5); Neutrophil # 4.38 X10^3/uL (2.7-7.7); Neutrophil % 61.1 % (47-70); Platelet Count 223 K/mm3 (150-450); RBC Distribution Width CV 12.5 % (11.6-14.6); RBC Distribution Width SD 51.2 fl (35.1-43.9); Red Blood Count 2.86 M/mm3 (4.2-5.4); White Blood Count 7.2 K/mm3 (4.4-11.0)
[2023-07-27 12:15] LABS: BUN 51 mg/dL (7-18); Calcium,Total 8.8 mg/dL (8.5-10.1); Chloride 118 mmol/L (98-107); Creatinine, Serum 1.76 mg/dL (0.55-1.02); EST Glomerular Filtration Rate 29 mL/min (>60); Est Glom Filt Rate - Afr Amer 35 mL/min (>60); Ferritin 67 ng/mL (8-252); Glucose 59 mg/dL (74-106); Iron 52 ug/dL (50-170); Iron Binding Capacity,Total 215 ug/dL (250-450); PERCENT IRON SATURATION 24.2 % (15.0-55.0); Potassium 4.6 mmol/L (3.5-5.1); Sodium Level 144 mmol/L (136-145)
[2023-07-27] MEDS: Epoetin Alfa-EPBX 20,000 unit/ml 12000 UNIT SC (12:29)
[2023-07-27 12:34] VITALS: BP 139/90; PULSE 62; RESP 16; TEMP 36; O2SAT 97; BMI 39.6
== END 2023-07-27 11:10 | disposition home or self-care (01) ==
LOC: MEDOUTP 11:09
PROVIDERS: PCP Family Medicine; Referring Provider Internal Medicine Nephrology; Visit Provider Internal Medicine Nephrology
DX: N18.4 Chronic kidney disease, stage 4 (severe) (principal); D63.1 Anemia in chronic kidney disease
CPT/HCPCS: 36415; 80069; 82728; 83540; 83550; 85025; 96372; Q5106

== ENCOUNTER 2023-08-09 10:45 | Outpatient (CLI) | payer MEDICARE, OTHER, SELFPAY ==
--- OUTSIDE RECORDS SUMMARY | 2023-08-09 11:09 | XMS RPT_ITS | CCD ---
Author Name Unknown Address [address] [place] [address] Organization [facility] Care Team Providers Care Mail List Processor Name Role Phone Sly Pedersen Unavailable Unavailable [...] (1 source) Iodine Drug Allergy 1 Hives [facility] Penicillins (antibiotic) (1 source) Penicillins Drug Allergy 9 [facility] (9 sources) Penicillins; Translations: [penicillins] Propensity to adverse reactions to drug (disorder) 9 [facility] Repository (7 sources) Iodine; Translations: [IODINE] Drug Allergy 1 Hives, Unknown [facility] (5 sources) Penicillin; Translations: [PENICILLIN] Drug Allergy 2 [facility] (1 source) Iodine Drug Allergy 1 Hives, Unknown [facility] Medications Current Medications Medication Drug Class(es) [...] First dose on Mon04/01/21 at 0900 calcitriol 0.53095 mg oral capsule (8 sources) Vitamin D3 [...] wall pain] Episodic Other aftercare (2 sources) 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; Translations: [MCFP (current) use of insulin] Onset: 07-22-2023 Episodic [...] Time Vital Sign Value Performing Clinician [facility] 06-01-2023 16:24-0400 Diastolic blood pressure 50 mm[Hg] Romario Cuellarman DPM Work Phone: [facility] 06-01-2023 16:24-0400 Heart rate 56 /min Romario Andrews DPM Work Phone: [facility] 06-01-2023 16:24-0400 Systolic blood pressure 124 mm[Hg] Romario Cuellarman DPM Work Phone: [facility] 06-01-2023 16:18-0400 Body temperature 98.29 [degF] Romario Cuellarman DPM Work Phone: [facility] 02-16-2023 16:51-0400 Body temperature 98.1 [degF] Romario Cuellarman DPM Work Phone: [facility] 02-16-2023 16:51-0400 Diastolic blood pressure 59 mm[Hg] Romario Cuellarman DPM Work Phone: [facility] 02-16-2023 16:51-0400 Heart rate 75 /min Romario Cuellarman DPM Work Phone: [facility] 02-16-2023 16:51-0400 Systolic blood pressure 134 mm[Hg] Romario Cuellarman DPM Work Phone: [facility] 11-17-2022 16:30-0500 Diastolic blood pressure 72 mm[Hg] Romario Cuellarman DPM Work Phone: [facility] 11-17-2022 16:30-0500 Heart rate 72 /min Romario Cuellarman DPM Work Phone: [facility] 11-17-2022 16:30-0500 Systolic blood pressure 178 mm[Hg] Romario Cuellarman DPM Work Phone: [facility] 11-17-2022 16:17-0500 Body temperature 98.6 [degF] Romario Cuellarman DPM Work Phone: [facility] 05-12-2022 14:55-0400 Diastolic blood pressure 71 mm[Hg] Romario Andrews DPM Work Phone: [facility] 05-12-2022 14:55-0400 Heart rate 53 /min Romario Andrews DPM Work Phone: [facility] 05-12-2022 14:55-0400 Systolic blood pressure 177 mm[Hg] Romario Andrews DPM Work Phone: [facility] 05-12-2022 14:48-0400 Body temperature 99.19 [degF] Romario Andrews DPM Work Phone: [facility] 04-02-2021 12:21-0400 Diastolic blood pressure 66 mm[Hg] Fredy Horton MD Work Phone: [facility] 04-02-2021 12:21-0400 Systolic blood pressure 119 mm[Hg] Fredy Horton MD Work Phone: [facility] 04-02-2021 07:22-0400 Body temperature 98.01 [degF] Fredy Horton MD Work Phone: [facility] 04-02-2021 07:22-0400 Heart rate 54 /min Fredy Horton MD Work Phone: [facility] 04-02-2021 07:22-0400 Respiratory rate 14 /min Fredy Horton MD Work Phone: [facility] 04-02-2021 07:22-0400 SaO2% (BldA) [Mass fraction] 94 % Fredy Horton MD Work Phone: [facility] 04-01-2021 01:14-0400 Body height 167.6 cm rFedy Horton MD Work Phone: [facility] 04-01-2021 01:14-0400 Body mass index (BMI) [Ratio] 40.67 kg/m2 Fredy Horton MD Work Phone: [facility] 04-01-2021 01:14-0400 Body weight 114.31 kg Fredy Horton MD Work Phone: [facility] 12-12-2020 14:00-0400 BP Diastolic 60 mm[Hg] [facility] 12-12-2020 14:00-0400 BP Systolic 157 mm[Hg] [facility] 12-12-2020 14:00-0400 Pulse Oximetry 97 % [facility] 12-12-2020 12:02-0400 BMI (Body Mass Index) 41.97 kg/m2 [facility] 12-12-2020 12:02-0400 Body Temperature 97.59 [degF] [facility] 12-12-2020 12:02-0400 Body weight 117.94 kg [facility] 12-12-2020 12:02-0400 Height 167.6 cm [facility] 12-12-2020 12:02-0400 Pulse (Heart Rate) 67 /min [facility] 12-12-2020 12:02-0400 Respiratory Rate 16 /min [facility] Encounters Encounter Date Encounter Type Care Provider Facility Start: 07-22-2023 End: 07-22-2023 Emergency department patient visit [facility] Start: 06-01-2023 End: 06-05-2023 ambulatory ROMARIO ANDREWS [facility] Start: 06-01-2023 End: 06-01-2023 Patient encounter procedure Romario Andrews DPM Work Phone: [facility] Procedures Date Procedure [...] Phone: Start: 04-01-2021 Glucose measurement [facility] Start: 12-12-2020 End: 12-12-2020 [...] Start: 04-16-2028 Tetanus vaccination Tetanus: Every 10yrs [facility] Start: 08-31-2023 End: 08-31-2023 Patient encounter procedure 08/31/2023 4:15 PM EST Office Visit [facility] Pod[facility] [address] [place] [address] Romario Andrews DPM [address] [place] [address] [facility] Start: 05-25-2023 End: 05-25-2023 Patient encounter procedure 05/25/2023 4:15 PM EDT Office Visit [facility] Pod[facility] [address] [place] [address] Romario Andrews DPM [address] [place] [address] [facility] Start: 05-19-2023 Influenza vaccination Sequential Influenza Vaccine (#1) [facility] Start: 02-16-2023 End: 02-16-2023 Patient encounter procedure 02/16/2023 Office Visit Podiatry Romario Andrews, DPM [address] [place] [address] [facility] Physician [facility] Pod[facility] Start: 08-04-2022 End: 08-04-2022 Patient encounter procedure 08/04/2022 Office Visit Podiatry Romario Andrews, GARLANDM [address] [place] [address] [facility] Physician [facility] Start: 05-19-2022 Influenza vaccination Sequential Influenza Vaccine (#1) [facility] Start: 12-18-2021 COVID-19 Vaccine (4 - Booster for Moderna series) COVID-19 Vaccine (4 - Booster for Moderna series) [facility] Start: 10-14-2021 COVID-19 Vaccine (4 - Booster for Moderna series) COVID-19 Vaccine (4 - Booster for Moderna series) [facility] Start: 10-14-2021 COVID-19 Vaccine (4 - Moderna series) COVID-19 Vaccine (4 - Moderna series) [facility] Start: 05-19-2021 Influenza vaccination Sequential Influenza Vaccine (#1) [facility] Start: 09-02-2020 Pneumococcal vaccination Pneumococcal Vaccine Age 65+ (2 of 2 - PCV13) [facility] Start: 05-19-2020 Influenza vaccination given Sequential Influenza Vaccine (#1) [facility] Start: 04-16-2019 Pneumococcal Vaccine: Age 65+ (2 - PPSV23 or PCV20) Pneumococcal Vaccine: Age 65+ (2 - PPSV23 or PCV20) [facility] Start: 01-06-2005 Fall risk assessment Falls Risk Assessment [facility] Start: 01-06-1990 Administration of herpes zoster vaccine Zoster Vaccines (1 of 2) [facility] Start: 01-06-1959 Administration of herpes zoster vaccine Zoster Vaccines (1 of 2) [facility] Start: 1956 COVID-19 Vaccine (1) COVID-19 Vaccine (1) [facility] Start: 1952 Adolescent depression screening assessment Depression Screening (PHQ9) [facility] Start: 1952 Depression screening using PHQ-9 (Patient Health Questionnaire 9) score [facility] Start: 01-06-1950 Diabetic foot examination Foot Exam [facility] Start: 01-06-1950 Glaucoma screening [facility] Start: 01-06-1950 Microalbumin measurement, urine, quantitative Urine Microalbumin [facility] Start: 01-06-1950 Ophthalmic examination and evaluation Ophthalmology Exam [facility] Start: 01-06-1950 Urine screening for protein Urine Microalbumin [facility] Start: 01-06-1946 Pneumococcal Vaccine: Age 65+ (1 of 4 - PCV13) Pneumococcal Vaccine: Age 65+ (1 of 4 - PCV13) [facility] Start: 01-06-1943 History and physical examination, annual for health maintenance Wellness Visit [facility] Start: 1940 Fall risk assessment Falls Risk Assessment [facility] Start: 1940 Hemoglobin A1c measurement A1C [facility] Start: 1940 Screening for osteoporosis Dexa Scan [facility] Start: 1940 Screening mammography Mammogram [facility] Start: 1940 Tetanus vaccination Tetanus: Every 10yrs [facility] Payers Date Payer Category Payer Unknown 2014 Unknown 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 [id number] 2014-Present [id number] 2014 Unknown [id number] 2004 Medicare 2004 Medicare MEDICARE MEDICAR E PART A & B [id number] 2004-Present [place] [id number] 2004 Medicare [id number] 1940 Unknown [id number] 1940 Unknown [id number] 1940 Unknown [id number] 1940 Unknown [id number] 1940 Unknown [id number] 1940 Unknown [id number] 1940 Unknown [id number] 1940 Unknown [id number] 1940 Unknown [id number] Social History Date Type Detail Facility Start: 12-12-2020 End: 05-12-2022 Tobacco smoking status WVIS Never smoker [facility] Start: 12-12-2020 End: 05-12-2022 Tobacco use and exposure Never used [facility] Start: 12-12-2020 End: 06-01-2023 Alcohol intake Lifetime non-drinker (finding) [facility] Start: 12-12-2020 History SDOH Alcohol Frequency 1 [facility] Start: 1940 [facility] Start: 05-02-2022 End: 11-17-2022 Exposure to SARS-CoV-2 (event) Not sure [facility] Start: 12-12-2020 End: 02-16-2023 History of Social function [facility] Start: 12-12-2020 End: 02-16-2023 Alcohol Use Disorder Identification Test - Consumption [AUDIT-C] [facility] How often to you hav e a drink containing alcohol? Never [facility] Average Number of Drinks [facility]: 12-12-2020 Gender identity Identifies as female gender (finding) [facility] Start: 04-01-2021 Sexual orientation Heterosexual (fin ding) [facility] Clinical Notes 04-01-2021 to 06-01-2023 Romario Andrews, DPM - 06/01/2023 4:57 PM Anabella Nawaf Andrews, SOFIYA - 02/16/2023 4:46 PM CierraRomario, SOFIYA - 02/16/2023 4:46 PM EDT Note Date & Type Note Facility 06-01-2023 History of Presen t illness Narrative Patient: Mony Worley Date of : 1940 (83 y.o.) PCP: Cristian Phillip, SAFETY RELIEF VALVE TECHNICIAN Procedures I debrided toenails 1 through 5 [...] C) (Infrared) Laboratory and Additional Data Reviewed: Reviewed:[id number]} XR Foot Right 3+ Views (Standard) X-rays 3 views right foot: There is calcification of the capsule of the first metatarsal phalange joint. Patient has a medial bony prominence consistent with a bunion deformity. 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 A contracted second hammertoe is noted. There is osteoporosis throughout the foot documented in this encounter [facility] 02-16-2023 History of Presen t illness [...] 3 months. Procedures documented in this encounter [facility] 02-16-2023 History of Presen t illness [...] 3 months. Procedures documented in this encounter [facility] 11-17-2022 History of Presen t illness [...] 3 months. Procedures documented in this encounter [facility] 05-12-2022 History of Presen t illness Narrative Patient Name: Mony Worley MR #: [id number] : 1940 Gender: female. Date of Consultation: [...] bilateral. Neurological: Diminished bilateral feet with a Triplett Carmina 5.0 7 monofilament. Patient cannot feel [...] above physician 05/12/22 documented in this encounter [facility] 04-01-2021 Miscellaneous Notes Problem: Actual or [...] impression: non-specific ECG documented in this encounter [facility] 04-01-2021 History and physi alessandra note [facility] Medicine Inpatient H&P 04/01/2021 Imelda Hirsch CNP [facility] Patient: Mony Worley Date of : [...] by: Fredy Horton MD Authorized by: Fredy oHrton MD Interpreted by ED attending physician Comparison: [...] with resultant grade 1 subluxation at L4-5. [employer]/agreement24 [email or web address] Workstation ID: [id number] Pending Lab and Radiology [...] for immediate consultation if requested by the SAFETY RELIEF VALVE TECHNICIAN. documented in this encounter [facility] 04-01-2021 Emergency departm ent Note Report [...] Note: NAME: Mony Worley 81 y.o. CSN: [id number] PCP: Cristian Phillip CNP ED Course / [...] Social Gatherings with Friends and Family: Attends Scient[employer] Services: Active Member of Clubs or Organizations: [...] Procedure Abnormality Status --------- ------ CBC Auto Differential[[id number]] Abnormal Final result Please view results for these tests on the individual orders. URINALYSIS LACTIC ACID, PLASMA CT Abdomen Pelvis Without Contrast Final Result 1. Mild diffuse adynamic ileus pattern without evidence of bowel obstruction. 2. Severe aortic atherosclerosis. 3. 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 4th aspectD/agreement24 [email or web address] Workstation ID: [id number] Procedures: Procedures Fredy Horton MD ED Physician Emergency Department (Please note that portions of this note have been completed with a voice recognition software. 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 Pt states blood glucose was 278 at [...] mellitus (HCC) Bunion [facility]* Attachments The following attachments cannot be sent through Care Everywhere. * Ileus: General Info (Somali) [facility] Family History No Family History Records FoundNo Family History Records FoundNo Family History Records FoundNo Family History Records Found Advance Directives No Advanced Directives Records FoundDocuments on File Type Date Recorded Patient Mesh Man Expl anation Advance Directives and Livin g Will 12/12/2020 12:16 PM Documents on File Type Date Recorded Patient Mesh Man Expl anation Advance Directives and Livin g [...] Odonnell Note Recipients: Sly Pedersen MD - [id number] [] Discharge: Summary: Admission Date: .06-Dec-2019 04:00:00 Discharge Date: 09-Dec-2019 Attending Physician at Discharge: Sushil Odonnell Admission Reason: Nausea, vomiting and diarrhea(1) Final Discharge Diagnoses: Acute kidney injury superimposed on chronic kidney disease, Dehydration, Nausea and vomiting, Procedures: 1. Nephrology consultation 2. Renal ultrasound 12/09/2019 Condition at Discharge: Satisfactory Disposition at Discharge: .Home Vital Signs: T PRBPSpO2 [id number]/6492% Date/Time12/08 7: 7: 7: 7: 7:00 Range(36.7C [...] be sent through Care Everywhere. * Contusion (Somali) documented in this encounter Assessments Diagnosis Fall, initial encounter- Primary Chest wall pain Painful respiration Closed head injury, initial encounter Additional Source Comments INFORMATION SOURCE (unrecogn ized section and content) DATE CREATED AUTHOR AUTHOR'S ORGANIZ ATION 11/25/2020 [facility] DATE CREATED AUTHOR AUTHOR'S ORGANIZ ATION 06/05/2023 [facility] DATE CREATED AUTHOR AUTHOR'S ORGANIZ ATION 07/29/2023 [facility] Reason for Visit (unrecogniz ed section [...] ED Notes (unrecognized secti on and content) [facility] ED Attending Note: NAME: Mony Worley 80 y.o. CSN: [id number] PCP: Cristian Phillip CNP History: Chief Complaint: [...] disc bulge and mild spinal stenosis L4-5. [employer] Workstation ID: [id number] CT Lumbar Spine Without Contrast Reconstructed Preliminary Result 1. Degenerative changes of the thoracolumbar spine. No acute fracture or process is seen. 2. Degenerative grade 1 spondylolisthesis of L4 on L5 with broad-based disc bulge and mild spinal stenosis L4-5. [employer] Workstation ID: [id number] CT Chest Abdomen Pelvis [...] Leiomyomas. 6. Degenerative changes of the spine. [place] Workstation ID: [id number] CT Cervical Spine Without Contrast Preliminary Result 1. Degenerative changes of the cervical spine with spinal stenosis at C5-6. No acute fracture. [place] Workstation ID: [id number] CT Head Or Brain Without Contrast Final Result 1. No posttraumatic or acute intracranial abnormality is seen. 2. Expected age-related atrophy is noted. Patient does have a few small deep white matter hypodensities suggestive of incidental small lacunar infarcts. 3. Dense opacification of the right maxillary sinus suggests chronic sinus disease. Remaining included sinuses and mastoid air cells are clear. [facility] Workstation ID: [id number] ED Course / [...] head injury, initial encounter Arnie Dimas MD [facility] Emergency Department (Please note that portions of this note have been completed with a voice recognition software. Efforts were made to correct any errors, but occasionally words are mis-transcribed.) Anrie Dimas MD 12/12/20 1408 Pt presents to [...] Maryjane Brantley RN)1821 (Paused - Provider: Maryjane Barntley RN)1823 (Restarted - Provider: Maryjane Brantley RN)1823 [...]
Care Teams (unrecognized sec tion and content) Mail List Processor Relationship Specialty Start Date End Date Cristian Phillip SASKIA Woodruff [address] [place] [address] PCP - General Nurse Practitioner 12/12/20 Mail List Processor Relationship Specialty Start Date End Date Lou Cristianrogelio Woodruff CNP [address] [place] [address] PCP - General Nurse Practitioner 12/12/20 Mail List Processor Relationship Specialty Start Date End Date Lou Cristian Kacy, SASKIA [address] [place] [address] PCP - General Nurse Practitioner 12/12/20 Mail List Processor Relationship Specialty Start Date End Date Lou Cristian SASKIA Woodruff [address] [place] [address] PCP - General Nurse Practitioner 12/12/20 FOR [...] BE BASED ON THE PRIMARY CLINICAL RECORDS. [employer] [facility]. provides no warranty or guarantee of the accuracy or completeness of information in this document.
[2023-08-09 11:34] LABS: Hematocrit 30.8 % (37-47); Hemoglobin 9.4 g/dL (12.0-15.0); Mean Corp Hgb Conc 30.5 g/dL (32-36); Mean Corpuscular Hgb 33.1 pg (27.0-32.0); Mean Corpuscular Volume 108.5 fL (81-99); Platelet Count 252 K/mm3 (150-450); RBC Distribution Width CV 12.7 % (11.6-14.6); RBC Distribution Width SD 50.7 fl (35.1-43.9); Red Blood Count 2.84 M/mm3 (4.2-5.4); White Blood Count 5.7 K/mm3 (4.4-11.0)
[2023-08-09 11:40] LABS: Albumin, Serum 3.1 g/dL (3.2-5.0); BUN 50 mg/dL (7-18); BUN/Creat Ratio 29.2 RATIO (10-20); Calcium,Total 8.7 mg/dL (8.5-10.1); Chloride 115 mmol/L (98-107); Creatinine, Serum 1.71 mg/dL (0.55-1.02); EST Glomerular Filtration Rate 30 mL/min (>60); Est Glom Filt Rate - Afr Amer 37 mL/min (>60); Glucose 109 mg/dL (74-106); Phosphorus 3.1 mg/dL (2.5-4.9); Sodium Level 143 mmol/L (136-145)
[2023-08-09 12:14] VITALS: BP 143/46; PULSE 61; RESP 16; TEMP 36; O2SAT 97; BMI 39.6
[2023-08-09] MEDS: Epoetin Alfa-EPBX 20,000 unit/ml 12000 UNIT SC (12:16)
== END 2023-08-09 10:46 | disposition home or self-care (01) ==
PROVIDERS: PCP Family Medicine; Referring Provider Internal Medicine Nephrology; Visit Provider Internal Medicine Nephrology
DX: N18.4 Chronic kidney disease, stage 4 (severe) (principal); D63.1 Anemia in chronic kidney disease
CPT/HCPCS: 36415; 80069; 85027; 96372; Q5106

== ENCOUNTER 2023-08-24 11:08 | Outpatient (CLI) | payer MEDICARE, OTHER, SELFPAY ==
[2023-08-24 11:27] LABS: Absolute Lymphocyte Count 1.28 X10^3/uL (0.83-4.51); Absolute Neutrophil Count 4.2 X10^3/uL (2.0-7.7); Basophil# 0.04 X10^3/uL; Basophil% 0.6 % (0-1); Eosinophil# 0.29 X10^3/uL; Eosinophils% 4.6 % (0-5); Hematocrit 32.1 % (37-47); Hemoglobin 9.8 g/dL (12.0-15.0); Lymphocyte # 1.28 X10^3/ul (0.83-4.51); Lymphocyte % 20.2 % (19-41); Mean Corp Hgb Conc 30.5 g/dL (32-36); Mean Corpuscular Hgb 32.9 pg (27.0-32.0); Mean Corpuscular Volume 107.7 fL (81-99); Monocyte# 0.51 X10^3/uL; NRBC Flagged by Analyzer 0 % (0-5); Neutrophil # 4.21 X10^3/uL (2.7-7.7); Neutrophil % 66.3 % (47-70); Platelet Count 231 K/mm3 (150-450); RBC Distribution Width CV 12.7 % (11.6-14.6); RBC Distribution Width SD 49.3 fl (35.1-43.9); Red Blood Count 2.98 M/mm3 (4.2-5.4); White Blood Count 6.4 K/mm3 (4.4-11.0)
[2023-08-24 11:40] LABS: Albumin, Serum 3.1 g/dL (3.2-5.0); BUN 46 mg/dL (7-18); BUN/Creat Ratio 27.5 RATIO (10-20); Chloride 114 mmol/L (98-107); Creatinine, Serum 1.67 mg/dL (0.55-1.02); EST Glomerular Filtration Rate 31 mL/min (>60); Est Glom Filt Rate - Afr Amer 38 mL/min (>60); Glucose 94 mg/dL (74-106); Phosphorus 3.4 mg/dL (2.5-4.9); Potassium 3.8 mmol/L (3.5-5.1); Sodium Level 143 mmol/L (136-145)
[2023-08-24] MEDS: Epoetin Alfa-EPBX 20,000 unit/ml 12000 UNIT SC (11:48)
[2023-08-24 11:52] VITALS: BP 139/63; PULSE 55; RESP 16; TEMP 36.1; O2SAT 96; BMI 39.6
== END 2023-08-24 11:09 | disposition home or self-care (01) ==
LOC: MEDOUTP 11:08
PROVIDERS: PCP Family Medicine; Referring Provider Internal Medicine Nephrology; Visit Provider Internal Medicine Nephrology
DX: N18.4 Chronic kidney disease, stage 4 (severe) (principal); D63.1 Anemia in chronic kidney disease
CPT/HCPCS: 36415; 80069; 85025; 96372; Q5106

== ENCOUNTER 2023-09-07 11:03 | Outpatient (CLI) | payer MEDICARE, OTHER, SELFPAY ==
[2023-09-07 11:36] VITALS: BP 162/66; PULSE 70; RESP 16; TEMP 36.2; O2SAT 98; BMI 39.6
[2023-09-07 11:36] LABS: Absolute Lymphocyte Count 0.77 X10^3/uL (0.83-4.51); Basophil# 0.01 X10^3/uL; Basophil% 0.2 % (0-1); Hematocrit 31.2 % (37-47); Hemoglobin 9.6 g/dL (12.0-15.0); Lymphocyte # 0.77 X10^3/ul (0.83-4.51); Lymphocyte % 12.3 % (19-41); Mean Corp Hgb Conc 30.8 g/dL (32-36); Mean Corpuscular Hgb 32.5 pg (27.0-32.0); Mean Corpuscular Volume 105.8 fL (81-99); Mean Platelet Vol. 9.9 fl (6.2-12.0); Monocyte# 0.45 X10^3/uL; Monocyte% 7.2 % (0-10); NRBC Flagged by Analyzer 0 % (0-5); Neutrophil # 4.97 X10^3/uL (2.7-7.7); Neutrophil % 79.5 % (47-70); Platelet Count 257 K/mm3 (150-450); RBC Distribution Width CV 12.8 % (11.6-14.6); RBC Distribution Width SD 49.7 fl (35.1-43.9); Red Blood Count 2.95 M/mm3 (4.2-5.4); White Blood Count 6.3 K/mm3 (4.4-11.0)
[2023-09-07 11:45] LABS: Albumin, Serum 3.2 g/dL (3.2-5.0); BUN 50 mg/dL (7-18); BUN/Creat Ratio 29.8 RATIO (10-20); Calcium,Total 9.3 mg/dL (8.5-10.1); Chloride 110 mmol/L (98-107); Creatinine, Serum 1.68 mg/dL (0.55-1.02); EST Glomerular Filtration Rate 31 mL/min (>60); Est Glom Filt Rate - Afr Amer 37 mL/min (>60); Estimated Creatinine Clearance 23.75 ml/min; Glucose 215 mg/dL (74-106); Phosphorus 2.5 mg/dL (2.5-4.9); Potassium 4.1 mmol/L (3.5-5.1); Sodium Level 141 mmol/L (136-145)
[2023-09-07] MEDS: Epoetin Alfa-EPBX 20,000 unit/ml 12000 UNIT SC (12:29)
== END 2023-09-07 11:04 | disposition home or self-care (01) ==
LOC: MEDOUTP 11:03
PROVIDERS: PCP Family Medicine; Referring Provider Internal Medicine Nephrology; Visit Provider Internal Medicine Nephrology
DX: N18.4 Chronic kidney disease, stage 4 (severe) (principal); D63.1 Anemia in chronic kidney disease
CPT/HCPCS: 36415; 80069; 85025; 96372; Q5106

== ENCOUNTER 2023-09-21 11:01 | Outpatient (CLI) | payer MEDICARE, OTHER, SELFPAY ==
[2023-09-21 11:21] LABS: Absolute Lymphocyte Count 1.19 X10^3/uL (0.83-4.51); Absolute Neutrophil Count 6.7 X10^3/uL (2.0-7.7); Basophil# 0.03 X10^3/uL; Basophil% 0.3 % (0-1); Eosinophil# 0.17 X10^3/uL; Eosinophils% 1.9 % (0-5); Hematocrit 34.2 % (37-47); Hemoglobin 10.4 g/dL (12.0-15.0); Lymphocyte # 1.19 X10^3/ul (0.83-4.51); Lymphocyte % 13.6 % (19-41); Mean Corp Hgb Conc 30.4 g/dL (32-36); Mean Corpuscular Hgb 32.5 pg (27.0-32.0); Mean Corpuscular Volume 106.9 fL (81-99); Mean Platelet Vol. 10.6 fl (6.2-12.0); Monocyte% 6.9 % (0-10); NRBC Flagged by Analyzer 0 % (0-5); Neutrophil # 6.69 X10^3/uL (2.7-7.7); Neutrophil % 76.7 % (47-70); Platelet Count 229 K/mm3 (150-450); RBC Distribution Width CV 13.6 % (11.6-14.6); RBC Distribution Width SD 54.1 fl (35.1-43.9); White Blood Count 8.7 K/mm3 (4.4-11.0)
[2023-09-21 11:29] VITALS: BP 158/78; PULSE 68; RESP 16; TEMP 36.2
[2023-09-21 11:40] LABS: Albumin, Serum 3.1 g/dL (3.2-5.0); BUN 57 mg/dL (7-18); Calcium,Total 9.1 mg/dL (8.5-10.1); Chloride 114 mmol/L (98-107); Creatinine, Serum 1.63 mg/dL (0.55-1.02); EST Glomerular Filtration Rate 32 mL/min (>60); Est Glom Filt Rate - Afr Amer 39 mL/min (>60); Ferritin 78 ng/mL (8-252); Glucose 149 mg/dL (74-106); Iron 73 ug/dL (50-170); Iron Binding Capacity,Total 243 ug/dL (250-450); Phosphorus 3.3 mg/dL (2.5-4.9); Potassium 4.2 mmol/L (3.5-5.1); Sodium Level 144 mmol/L (136-145)
[2023-09-21] MEDS: Epoetin Alfa-EPBX 20,000 unit/ml 12000 UNIT SC (11:57)
== END 2023-09-21 11:02 | disposition home or self-care (01) ==
LOC: MEDOUTP 11:03
PROVIDERS: PCP Family Medicine; Referring Provider Internal Medicine Nephrology; Visit Provider Internal Medicine Nephrology
DX: N18.4 Chronic kidney disease, stage 4 (severe) (principal); D63.1 Anemia in chronic kidney disease
CPT/HCPCS: 36415; 80069; 82728; 83540; 83550; 85025; 96372; Q5106

== ENCOUNTER 2023-10-05 10:58 | Outpatient (CLI) | payer MEDICARE, OTHER, SELFPAY ==
[2023-10-05 11:16] LABS: Hematocrit 32.5 % (37-47); Hemoglobin 10.3 g/dL (12.0-15.0); Mean Corp Hgb Conc 31.7 g/dL (32-36); Mean Corpuscular Hgb 33.7 pg (27.0-32.0); Mean Corpuscular Volume 106.2 fL (81-99); Mean Platelet Vol. 9.5 fl (6.2-12.0); Platelet Count 234 K/mm3 (150-450); RBC Distribution Width CV 13.6 % (11.6-14.6); RBC Distribution Width SD 53.2 fl (35.1-43.9); Red Blood Count 3.06 M/mm3 (4.2-5.4); White Blood Count 9.9 K/mm3 (4.4-11.0)
[2023-10-05 11:27] LABS: Albumin, Serum 2.9 g/dL (3.2-5.0); BUN 53 mg/dL (7-18); BUN/Creat Ratio 28.3 RATIO (10-20); Chloride 113 mmol/L (98-107); Creatinine, Serum 1.87 mg/dL (0.55-1.02); EST Glomerular Filtration Rate 27 mL/min (>60); Est Glom Filt Rate - Afr Amer 33 mL/min (>60); Glucose 212 mg/dL (74-106); Phosphorus 2.5 mg/dL (2.5-4.9); Potassium 3.9 mmol/L (3.5-5.1); Sodium Level 142 mmol/L (136-145)
[2023-10-05 11:34] VITALS: BP 136/53; PULSE 57; RESP 16; TEMP 36.2; O2SAT 98
[2023-10-05] MEDS: Epoetin Alfa-EPBX 20,000 unit/ml 12000 UNIT SC (11:50)
== END 2023-10-05 10:59 | disposition home or self-care (01) ==
PROVIDERS: PCP Family Medicine; Referring Provider Internal Medicine Nephrology; Visit Provider Internal Medicine Nephrology
DX: N18.4 Chronic kidney disease, stage 4 (severe) (principal); D63.1 Anemia in chronic kidney disease
CPT/HCPCS: 36415; 80069; 85027; 96372; Q5106

== ENCOUNTER 2023-10-26 11:14 | Outpatient (CLI) | payer MEDICARE, OTHER, SELFPAY ==
[2023-10-26 11:32] LABS: Absolute Lymphocyte Count 1.26 X10^3/uL (0.83-4.51); Absolute Neutrophil Count 5.9 X10^3/uL (2.0-7.7); Basophil# 0.02 X10^3/uL; Basophil% 0.3 % (0-1); Eosinophil# 0.18 X10^3/uL; Eosinophils% 2.3 % (0-5); Hematocrit 32.3 % (37-47); Hemoglobin 10.2 g/dL (12.0-15.0); Lymphocyte # 1.26 X10^3/ul (0.83-4.51); Lymphocyte % 15.8 % (19-41); Mean Corp Hgb Conc 31.6 g/dL (32-36); Mean Corpuscular Hgb 33.1 pg (27.0-32.0); Mean Corpuscular Volume 104.9 fL (81-99); Mean Platelet Vol. 9.8 fl (6.2-12.0); Monocyte# 0.55 X10^3/uL; Monocyte% 6.9 % (0-10); NRBC Flagged by Analyzer 0 % (0-5); Neutrophil # 5.93 X10^3/uL (2.7-7.7); Neutrophil % 74.1 % (47-70); Platelet Count 239 K/mm3 (150-450); RBC Distribution Width CV 13.8 % (11.6-14.6); RBC Distribution Width SD 53.1 fl (35.1-43.9); Red Blood Count 3.08 M/mm3 (4.2-5.4)
[2023-10-26 11:48] LABS: Albumin, Serum 3.1 g/dL (3.2-5.0); BUN 52 mg/dL (7-18); BUN/Creat Ratio 31.3 RATIO (10-20); Calcium,Total 9.2 mg/dL (8.5-10.1); Chloride 113 mmol/L (98-107); Creatinine, Serum 1.66 mg/dL (0.55-1.02); EST Glomerular Filtration Rate 31 mL/min (>60); Est Glom Filt Rate - Afr Amer 38 mL/min (>60); Glucose 107 mg/dL (74-106); Phosphorus 2.3 mg/dL (2.5-4.9); Sodium Level 143 mmol/L (136-145)
[2023-10-26 12:11] VITALS: BP 96/50; PULSE 69; RESP 16; TEMP 36.1; O2SAT 96; BMI 37.3
[2023-10-26] MEDS: Epoetin Alfa epbx 10,000 UNITS/ML 12000 UNIT SC (12:16)
--- OUTSIDE RECORDS SUMMARY | 2023-10-26 12:55 | XMS RPT_ITS | CCD ---
Author Name Unknown Address [address] [place] [address] Organization [facility] Care Team Providers Care Deck Mechanic Name Role Phone Sly Pedersen Unavailable Unavailable Sushil Odonnell Unavailable Unavailable Sushil Odonnell Unavailable Unavailable Jefry Navarrete Unavailable Unavailable Jefry Navarrete Unavailable Unavailable Sly Pedersen Unavailable Unavailable Cristian Phillip Primary Care Provider Cristian Phillip CNP Primary Care Provider Cristian Phillip CNP Primary Care Provider 1( [phone] Cristian Phillip CNP Primary Care Provider ROMARIO [...] (antibiotic) (1 source) Penicillins Drug Allergy 9 [facility] (9 sources) Penicillins; Translations: [penicillins] Propensity to adverse reactions to drug (disorder) 9 [facility] (7 sources) Iodine; Translations: [IODINE] Drug Allergy 1 Hives, Unknown [facility] (5 sources) Penicillin; Translations: [PENICILLIN] Drug Allergy 2 [facility] (1 source) Iodine Drug Allergy 1 Hives, [...] First dose on Mon04/01/21 at 0900 calcitriol 0.63722 mg oral capsule (8 sources) Vitamin D3 [...] wall pain] Episodic Other aftercare (2 sources) 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; Translations: [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] Onset: 07-22-2023 Episodic [...] Time Vital Sign Value Performing Clinician [facility] 06-01-2023 16:24-0400 Diastolic blood pressure 50 mm[Hg] [...] Center 12-12-2020 14:00-0400 BP Diastolic 60 mm[Hg] [facility] 12-12-2020 14:00-0400 BP Systolic 157 mm[Hg] [facility] 12-12-2020 14:00-0400 Pulse Oximetry 97 % [facility] 12-12-2020 12:02-0400 BMI (Body Mass Index) 41.97 kg/m2 [facility] 12-12-2020 12:02-0400 Body Temperature 97.59 [degF] [facility] 12-12-2020 12:02-0400 Body weight 117.94 kg [facility] 12-12-2020 12:02-0400 Height 167.6 cm [facility] 12-12-2020 12:02-0400 Pulse (Heart Rate) 67 /min [facility] 12-12-2020 12:02-0400 Respiratory Rate 16 /min [facility] Encounters Encounter Date Encounter Type Care Provider Facility Start: 07-22-2023 End: 07-22-2023 Emergency department patient visit [facility] Start: 06-01-2023 End: 06-05-2023 ambulatory ROMARIO ANDREWS [facility] Start: 06-01-2023 End: 06-01-2023 [...] procedure 08/31/2023 4:15 PM EST Office Visit [facility] [address] [address] Romario Andrews DPM [address] [place] [address] [facility] Start: 05-25-2023 End: 05-25-2023 Patient encounter procedure 05/25/2023 4:15 PM EDT Office Visit [facility] [address] [place] [address] Romario Andrews DPM [address] [place] [address] [facility] Start: 05-19-2023 Influenza vaccination Sequential Influenza Vaccine (#1) [facility] Start: 02-16-2023 End: 02-16-2023 Patient encounter procedure 02/16/2023 Office Visit Podiatry Romario Andrews, DPM [address] [place] [address] [facility] Physician [facility] Start: 08-04-2022 End: 08-04-2022 Patient encounter procedure 08/04/2022 Office Visit Podiatry Romario Andrews, GARLANDM [address] [place] [address] [facility] Physician [facility] Start: 05-19-2022 Influenza vaccination Sequential Influenza Vaccine (#1) [facility] Start: 12-18-2021 COVID-19 Vaccine (4 - Booster for Moderna series) COVID-19 Vaccine (4 - Booster [facility] Moderna series) [facility] Start: 10-14-2021 COVID-19 Vaccine (4 [...] 01-06-2005 Fall risk assessment Falls Risk Assessment [facility] Start: 01-06-1990 Administration of herpes [...] Unknown 2014 Unknown 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 1940 Unknown [id number] 1940 Unknown [id number] Social History Date Type Detail Facility Start: 12-12-2020 End: 05-12-2022 Tobacco smoking status MOIS Never smoker [facility] Start: 12-12-2020 End: 05-12-2022 Tobacco use and exposure Never used [facility] Start: 12-12-2020 End: 06-01-2023 Alcohol intake Lifetime non-drinker (finding) [facility] Start: 12-12-2020 History SDOH Alcohol Frequency 1 [facility] Start: 1940 [facility] Start: 05-02-2022 End: 11-17-2022 Exposure to SARS-CoV-2 [...] Average Number of Drinks Not [facility] file [facility] Start: 12-12-2020 Gender identity Identifies as [...] : 1940 (83 y.o.) PCP: Cristian Phillip, HOMEMAKING REHABILITATION CONSULTANT Procedures I debrided toenails 1 through 5 [...] C) (Infrared) Laboratory and Additional Data Reviewed: Reviewed:[id number]} XR Foot Right 3+ Views (Standard) X-rays [...] Narrative Patient Name: Mony Worley MR #: [id number] : 1940 Gender: female. Date of Consultation: [...] bilateral. Neurological: Diminished bilateral feet with a Maiden Carmina 5.0 7 monofilament. Patient cannot feel [...] by: Fredy Horton MD Authorized by: Fredy Hotron MD Interpreted by ED attending physician Comparison: not compared with previous ECG Rhythm: sinus rhythm BPM: 77 Ectopy: atrial premature contractions Conduction: conduction normal ST Segments: ST segments normal normal AR interval normal QRS interval normal QT interval Clinical impression: non-specific ECG documented in this encounter [facility] 04-01-2021 History and physi alessandra note [facility] Medicine Inpatient H&P 04/01/2021 Imelda Hirsch CNP [facility] Patient: Mony Worley Date of [...] normal ST Segments: ST segments normal normal AR interval normal QRS interval normal QT interval [...] with resultant grade 1 subluxation at L4-5. [employer] Workstation ID: [id number] Pending Lab and Radiology [...] for immediate consultation if requested by the HOMEMAKING REHABILITATION CONSULTANT. documented in this encounter [facility] [...] Note: NAME: Mony Worley 81 y.o. CSN: [id number] PCP: Cristian Phillip CNP ED Course / [...] Social Gatherings with Friends and Family: Attends Sikh Services: Active Member of Clubs or Organizations: [...] Procedure Abnormality Status --------- ------ CBC Auto Differential[[id number]] Abnormal Final result Please view results for these tests on the individual orders. URINALYSIS LACTIC ACID, PLASMA CT Abdomen Pelvis Without Contrast Final Result 1. Mild diffuse adynamic ileus pattern without evidence of bowel obstruction. 2. Severe aortic atherosclerosis. 3. 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 [employer] Workstation ID: [id number] Procedures: Procedures Fredy Horton MD ED Physician Emergency Department (Please note that portions of this note have been completed with a voice recognition software. 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 Pt states blood glucose was 278 at [...] mellitus (HCC) Bunion [facility]* Attachments The following attachments cannot be sent through Care Everywhere. 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 Nephrology consultation 2. Renal ultrasound 12/09/2019 Condition at Discharge: Satisfactory Disposition at Discharge: .Home Vital Signs: T PRBPSpO2 [id number]/6492% Date/Time12/08 7: 7: 7: 7: 7:00 Range(36.7C [...] be sent through Care Everywhere. * Contusion (Macedonian) documented in this encounter Assessments Diagnosis Fall, initial encounter- Primary Chest wall pain Painful respiration Closed head injury, initial encounter Additional Source Comments INFORMATION SOURCE (unrecogn ized section and content) DATE CREATED AUTHOR AUTHOR'S ORGANIZ ATION 11/25/2020 [facility] DATE CREATED AUTHOR AUTHOR'S ORGANIZ ATION 06/05/2023 [facility] DATE CREATED AUTHOR AUTHOR'S ORGANIZ ATION 07/29/2023 [facility] Reason for Visit (unrecogniz ed section [...] (unrecognized secti on and content) [facility] ED Attending Note: NAME: Mony Worley 80 y.o. CSN: [id number] PCP: Cristian Phillip CNP History: Chief Complaint: [...] file Gets together: Not on file Attends voodoo service: Not on file Active member of [...] disc bulge and mild spinal stenosis L4-5. [employer] Workstation ID: [id number] CT Lumbar Spine Without Contrast Reconstructed Preliminary Result 1. Degenerative changes of the thoracolumbar spine. No acute fracture or process is seen. 2. Degenerative grade 1 spondylolisthesis of L4 on L5 with broad-based disc bulge and mild spinal stenosis L4-5. [employer] Workstation ID: [id number] CT Chest Abdomen Pelvis [...] Leiomyomas. 6. Degenerative changes of the spine. [place] Workstation ID: [id number] CT Cervical Spine Without Contrast Preliminary Result 1. Degenerative changes of the cervical spine with spinal stenosis at C5-6. No acute fracture. [place]/[employer] Workstation ID: [id number] CT Head Or Brain Without Contrast Final Result 1. No posttraumatic or acute intracranial abnormality is seen. 2. Expected age-related atrophy is noted. Patient does have a few small deep white matter hypodensities suggestive of incidental small lacunar infarcts. 3. Dense opacification of the right maxillary sinus suggests chronic sinus disease. Remaining included sinuses and mastoid air cells are clear. [facility] Workstation ID: [id number] ED Course / [...] head injury, initial encounter Arnie Dimas MD [facility] Emergency Department (Please note that portions of [...]
Care Teams (unrecognized sec tion and content) Deck Mechanic Relationship Specialty Start Date End Date Cristian Phillip SASKIA Woodruff [address] [place] [address] PCP - General Nurse Practitioner 12/12/20 Deck Mechanic Relationship Specialty Start Date End Date Lou Cristianrogelio Woodruff CNP [address] [place] [address] PCP - General Nurse Practitioner 12/12/20 Deck Mechanic Relationship Specialty Start Date End Date Lou Cristian Kacy, SASKIA [address] [place] [address] PCP - General Nurse Practitioner 12/12/20 Deck Mechanic Relationship Specialty Start Date End Date Lou Cristian SASKIA Woodruff [address] [place] [address] PCP - General Nurse Practitioner 12/12/20 FOR [...] BE BASED ON THE PRIMARY CLINICAL RECORDS. [employer] [facility]. provides no warranty or guarantee of the accuracy or completeness of information in this document.
== END 2023-10-26 11:15 | disposition home or self-care (01) ==
LOC: MEDOUTP 11:14
PROVIDERS: PCP Family Medicine; Referring Provider Internal Medicine Nephrology; Visit Provider Internal Medicine Nephrology
DX: N18.4 Chronic kidney disease, stage 4 (severe) (principal); D63.1 Anemia in chronic kidney disease
CPT/HCPCS: 36415; 80069; 85025; 96372; Q5106

== ENCOUNTER 2023-11-09 11:05 | Outpatient (CLI) | payer MEDICARE, OTHER, SELFPAY ==
[2023-11-09 11:34] LABS: Absolute Lymphocyte Count 1.22 X10^3/uL (0.83-4.51); Absolute Neutrophil Count 5.7 X10^3/uL (2.0-7.7); Basophil# 0.04 X10^3/uL; Basophil% 0.5 % (0-1); Eosinophil# 0.29 X10^3/uL; Eosinophils% 3.6 % (0-5); Hematocrit 30.5 % (37-47); Hemoglobin 9.3 g/dL (12.0-15.0); Lymphocyte # 1.22 X10^3/ul (0.83-4.51); Lymphocyte % 15.3 % (19-41); Mean Corp Hgb Conc 30.5 g/dL (32-36); Mean Corpuscular Hgb 32.4 pg (27.0-32.0); Mean Corpuscular Volume 106.3 fL (81-99); Mean Platelet Vol. 10.2 fl (6.2-12.0); Monocyte# 0.77 X10^3/uL; Monocyte% 9.6 % (0-10); NRBC Flagged by Analyzer 0 % (0-5); Neutrophil # 5.66 X10^3/uL (2.7-7.7); Neutrophil % 70.7 % (47-70); Platelet Count 249 K/mm3 (150-450); RBC Distribution Width CV 14.1 % (11.6-14.6); RBC Distribution Width SD 55.6 fl (35.1-43.9); Red Blood Count 2.87 M/mm3 (4.2-5.4)
--- OUTSIDE RECORDS SUMMARY | 2023-11-09 11:47 | XMS RPT_ITS | CCD ---
Author Name Unknown Address [address] [place] [address] Organization [facility] Care Team Providers Care Mail Deliverer Name Role Phone Sly Pedersen Unavailable Unavailable Sushil Odonnell Unavailable Unavailable Sushil Odonnell Unavailable Unavailable Jefry Navarrete Unavailable Unavailable Jefry Navarrete Unavailable Unavailable Sly Pedersen Unavailable Unavailable Cristian Phillip Primary Care Provider Cristian Phillip CNP Primary Care Provider Cristian Phillip CNP Primary Care Provider [phone]( [phone] Cristian Phillip CNP Primary Care Provider CRISTIAN PHILLIP Primary Care Unavailable TAMMY LLOYD Attending Unavailable Cristian Phillip CNP Primary Care Provider CRISTIAN PHILLIP Primary Care Unavailable ROMARIO ANDREWS Attending CRISTIAN Bo Primary Care Unavailable ROMARIO ANDREWS Attending Unavaila ROMARIO Storey Attending Unavaila CRISTIAN Rosado Primary Care Unavailable ROMARIO ANDREWS Admitting ROMARIO Serna Referring CRISTIAN Bo Primary Care Unavailable ROMARIO ANDREWS Attending CRISTIAN Bo Primary Care Unavailable Allergies Allergy Classification Reported Allergen(s) Allergy Type Date of Onset Reaction(s) Facility Iodine (and Iodine containting drugs) (1 source) Iodine Drug Allergy 1 [facility] Penicillins (antibiotic) (1 source) Penicillins Drug Allergy 9 [facility] (10 sources) Penicillins; Translations: [penicillins] Propensity to adverse reactions to drug (disorder) [address] [facility] Repository (7 sources) Iodine; Translations: [IODINE] Drug Allergy 1 Hives, Unknown [facility] (6 sources) Penicillin; Translations: [PENICILLIN] Drug Allergy 2 [facility] (2 sources) Iodine Drug Allergy 1 Hives, Unknown [facility] Medications Current Medications Medication Drug Class(es) Dates Sig (Normalized) Sig (Original) aspirin 81 mg chewable tablet (9 sources) Platelet Aggregation Inhibitor, Nonsteroidal Anti-inflammatory Drug [...] 08/10/2022 Active doxazosin 4 mg oral tablet (9 sources) alpha-Adrenergic Fozia Start: 11-21-2020 End: 04-02-2021 take 1 tablet by mouth once daily doxazosin (CARDURA) 4 MG tablet Take 1 (one) tablet (4 mg total) by mouth daily . 0 11/21/2020 Active ergocalciferol 1.25 mg oral capsule (4 sources) Provitamin D2 Compound Start: 01-17-2023 take 1 capsule by mouth every week ergocalciferol (ERGOCALCIFEROL) 1,250 mcg (50,000 unit) capsule TAKE 1 CAPSULE BY MOUTH ONCE A WEEK FOR 90 DAYS 0 01/17/2023 Active furosemide 40 mg oral tablet (8 sources) Loop Diuretic take 1 tablet by mouth once daily furosemide (LASIX) 40 MG tablet Take 1 (one) tablet (40 mg total) by mouth daily . 0 Active insulin detemir 100 unt/ml injectable solution (8 sources) Insulin Analog Start: 11-21-2020 inject 40 [IU] by subcutaneous injection once daily in the morning Levemir U-100 Insulin 100 unit/mL injection Inject 40 (forty) Units under the skin every morning . 0 11/21/2020 Active lisinopril 40 mg oral tablet (5 sources) Angiotensin Converting Enzyme Inhibitor Start: 11-14-2022 [...] at 0550 atorvastatin 40 mg oral tablet (9 sources) HMG-CoA Reductase Inhibitor Start: 04-01-2021 End: 04-02-2021 take 40 mg by mouth once daily 40 mg, Oral, Daily, First dose on Mon04/01/21 at 0900 calcitriol 0.82868 mg oral capsule (9 sources) Vitamin D3 Analog Start: 04-02-2021 End: [...] hydrochloride 300 mg extended release oral tablet (9 sources) Calcium Channel Fozia Start: 04-01-2021 End: 04-02-2021 take 300 mg by mouth once daily 300 mg, Oral, Daily, First dose on Mon04/01/21 at 0900 DO NOT CRUSH OR CHEW. Problems Active Problems Problem Classification Problem Date Documented Date Episodic/Chronic Acquired foot deformities (1 source) Acquired hammer toes of bilateral feet; Translations: [Other hammer toe(s) (acquired), right foot] Chronic Chronic kidney disease (1 source) Chronic kidney disease; Translations: [Chronic kidney disease, unspecified] Chronic Diabetes mellitus with complications (8 sources) Mononeuropathy due to type 2 diabetes mellitus; Translations: [Type 2 diabetes mellitus with diabetic mononeuropathy] Onset: 02-16-2023 Chronic Diabetes mellitus without complication (2 sources) [...] wall pain] Episodic Other aftercare (2 sources) 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; Translations: [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] Onset: 07-22-2023 Episodic Other endocrine disorders (2 sources) Hypoglycemia, unspecified; Translations: [Hypoglycemia, unspecified] Onset: 07-22-2023 Chronic Other inflammatory condition of skin (1 source) Lichenification of skin; Translations: [Lichen simplex chronicus] 10-26-2023 Episodic Other inflammatory condition of skin (2 sources) Lichen simplex chronicus; Translations: [Lichen simplex chronicus] Onset: 10-26-2023 Episodic Other injuries and conditions due to external causes (1 source) Closed injury of head; Translations: [Closed head injury, initial encounter] Episodic Other skin disorders (2 sources) Foot callus; Translations: [Corns and callosities] Episodic Varicose veins of lower extremity (4 sources) Varicose veins of lower limb co-occurrent with edema; Translations: [Varicose veins of bilateral lower extremities with other complications] Onset: 10-26-2023 Episodic Past or Other Problems Problem Classification Problem Date Documented Da te Episodic/Chronic Acquired foot deformities (4 sources) Hallux valgus; Translations: [Bunion of right foot] Onset: 06-01-2023 Episodic Intestinal obstruction without hernia (8 sources) Intestinal obstruction co-occurrent and due to decreased peristalsis; Translations: [Ileus, unspecified] Onset: 04-01-2021 Episodic Mycoses (8 sources) Onychomycosis; Translations: [Tinea unguium] Onset: 02-16-2023 Episodic Other skin disorders (2 sources) Corns and callosities; Translations: [Corns and callosities] Onset: 06-01-2023 Episodic Results Test Name Value Interpretation Reference Range Facil ity Vital Signs Date Time Vital Sign Value Performing Clinician Faci lity 10-26-2023 15:15-0500 Body temperature 98.29 [degF] Romario Andrews DPM Work Phone: [facility] 10-26-2023 15:15-0500 Diastolic blood pressure 48 mm[Hg] Romario Andrews DPM Work Phone: [facility] 10-26-2023 15:15-0500 Heart rate 70 /min Romario Andrews DPM Work Phone: [facility] 10-26-2023 15:15-0500 Systolic blood pressure 128 mm[Hg] Romario Andrews DPM Work Phone: [facility] 06-01-2023 16:24-0400 Diastolic blood pressure 50 mm[Hg] Romario Andrews DPM Work Phone: [facility] 06-01-2023 16:24-0400 Heart rate 56 /min Romario Andrews DPM Work Phone: [facility] 06-01-2023 16:24-0400 Systolic blood pressure 124 mm[Hg] Romario Andrews DPM Work Phone: [facility] 06-01-2023 16:18-0400 Body temperature 98.29 [degF] Romario Andrews DPM Work Phone: [facility] 02-16-2023 16:51-0400 Body temperature 98.1 [degF] Romario Andrews DPM Work Phone: [facility] 02-16-2023 16:51-0400 Diastolic blood pressure 59 mm[Hg] Romario Andrews DPM Work Phone: [facility] 02-16-2023 16:51-0400 Heart rate 75 /min Romario Andrews DPM Work Phone: [facility] 02-16-2023 16:51-0400 Systolic blood pressure 134 mm[Hg] Romario Andrews DPM Work Phone: [facility] 11-17-2022 16:30-0500 Diastolic blood pressure 72 mm[Hg] Romario Andrews DPM Work Phone: [facility] 11-17-2022 16:30-0500 Heart rate 72 /min Romario Andrews DPM Work Phone: [facility] 11-17-2022 16:30-0500 Systolic blood pressure 178 mm[Hg] Romario Andrews DPM Work Phone: [facility] 11-17-2022 16:17-0500 Body temperature 98.6 [degF] Romario Andrews DPM Work Phone: [facility] 05-12-2022 14:55-0400 Diastolic blood pressure 71 mm[Hg] Romario Andrews DPM Work Phone: [facility] 05-12-2022 14:55-0400 Heart rate 53 /min Romario Andrews DPM Work Phone: [facility] 05-12-2022 14:55-0400 Systolic blood pressure 177 mm[Hg] Romario Andrews DPM Work Phone: [facility] 05-12-2022 14:48-0400 Body temperature 99.19 [degF] Romario Andrews DPM Work Phone: [facility] 04-02-2021 12:21-0400 Diastolic blood pressure 66 mm[Hg] Fredy Horton MD Work Phone: [facility] 04-02-2021 12:21-0400 Systolic blood pressure 119 mm[Hg] Fredy Horton MD Work Phone: [facility] 04-02-2021 07:22-0400 Body temperature 98.01 [degF] Fredy Horton MD Work Phone: [facility] 04-02-2021 07:22-0400 Heart rate 54 /min Fredy Horton MD Work Phone: [facility] 04-02-2021 07:22-0400 Respiratory rate 14 /min Fredy Horton MD Work Phone: [facility] 04-02-2021 07:22-0400 SaO2% (BldA) [Mass fraction] 94 % Fredy Horton MD Work Phone: [facility] 04-01-2021 01:14-0400 Body height 167.6 cm Fredy Horton MD Work Phone: [facility] 04-01-2021 01:14-0400 Body mass index (BMI) [Ratio] 40.67 kg/m2 Fredy Horton MD Work Phone: [facility] 04-01-2021 01:14-0400 Body weight 114.31 kg Fredy Horton MD Work Phone: [facility] 12-12-2020 14:00-0400 BP Diastolic 60 mm[Hg] [facility] 12-12-2020 14:00-0400 BP Systolic 157 mm[Hg] [facility] 12-12-2020 14:00-0400 Pulse Oximetry 97 % [facility] 12-12-2020 12:02-0400 BMI (Body Mass Index) 41.97 kg/m2 [facility] 12-12-2020 12:02-0400 Body Temperature 97.59 [degF] [facility] 12-12-2020 12:02-0400 Body weight 117.94 kg [facility] 12-12-2020 12:02-0400 Height 167.6 cm [facility] 12-12-2020 12:02-0400 Pulse (Heart Rate) 67 /min [facility] 12-12-2020 12:02-0400 Respiratory Rate 16 /min [facility] Encounters Encounter Date Encounter Type Care Provider Facility Start: 10-26-2023 End: 10-26-2023 ambulatory ROMARIO VILLALBA [facility] Start: 10-26-2023 End: 10-26-2023 Office outpatient visit 10 minutes Romario Andrews DPM Work Phone: [facility] Procedures Date Procedure Procedure Detail Performing Clinician Start: 05-12-2022 ANTIEMBOLISM STOCKINGS Romario Andrews DPM Work Phone: Start: 04-02-2021 Glucose measurement Chas Ortiz MD Work Phone: Start: 04-02-2021 Glucose measurement Chas Ortiz MD Work Phone: Start: 04-02-2021 Comprehensive metabolic panel Imelda Vinesour [facility] Work Phone: Start: 04-01-2021 Urnls dip stick/tabl [...] MD Work Phone: Start: 04-01-[address] [facility] Start: 12-12-2020 End: [...] Start: 04-16-2028 Tetanus vaccination Tetanus: Every 10yrs [facility] Start: 01-18-2024 End: 01-18-2024 Patient encounter procedure 01/18/2024 4:15 PM EDT Office Visit [facility] Physician [facility] [address] [place] [address] Romario Andrews DPM [address] [place] [address] [facility] Physician [facility] Start: 08-31-2023 End: 08-31-2023 Patient encounter procedure 08/31/2023 4:15 PM EST Office Visit [facility] [address] [place] [address] Romario Andrews DPM [address] [place] [address] [facility] Start: 05-25-2023 End: 05-25-2023 Patient encounter procedure 05/25/2023 4:15 PM EDT Office Visit [facility] [address] [place] [address] Romario Andrews DPM [address] [place] [address] [facility] Start: 05-19-2023 COVID-19 Vaccine ( season) COVID-19 Vaccine () [facility] Start: 05-19-2023 Influenza vaccination Sequential Influenza Vaccine (#1) [facility] Start: 02-16-2023 End: 02-16-2023 Patient encounter procedure 02/16/2023 Office Visit Podiatry Romario Andrews DPM [address] [place] [address] [facility] Start: 08-04-2022 End: 08-04-2022 Patient encounter procedure 08/04/2022 Office Visit Podiatry Romario Andrews DPM [address] [place] [address] [facility] Start: 05-19-2022 Influenza vaccination Sequential Influenza Vaccine (#1) [facility] Start: 12-18-2021 COVID-19 Vaccine (4 - Booster for Moderna series) COVID-19 Vaccine (4 - Booster for Moderna series) [facility] Start: 10-14-2021 COVID-19 Vaccine (4 - Booster for Moderna series) COVID-19 Vaccine (4 - Booster for Moderna series) [facility] Start: 10-14-2021 COVID-19 Vaccine (4 - Moderna series) COVID-19 Vaccine (4 - Moderna series) [facility] Start: 05-19-2021 Influenza vaccination Sequential Influenza Vaccine (#1) [facility] Start: 09-02-2020 Pneumococcal vaccination Pneumococcal Vaccine Age 65+ (2 of 2 - PCV13) [facility] Start: 05-19-2020 Influenza vaccination given Sequential Influenza Vaccine (#1) [facility] Start: 04-16-2019 Pneumococcal Vaccine: Age 65+ (2 - PPSV23 or PCV20) Pneumococcal Vaccine: Age 65+ (2 - PPSV23 or PCV20) [facility] Start: 01-06-2005 Fall risk assessment Falls Risk Assessment [facility] Start: 01-06-1990 Administration of herpes zoster vaccine Zoster Vaccines (1 of 2) [facility] Start: 01-06-1959 Administration of herpes zoster vaccine Zoster Vaccines (1 of 2) [facility] Start: 1956 COVID-19 Vaccine (1) COVID-19 Vaccine (1) [facility] Start: 1952 Adolescent depression screening assessment Depression Screening (PHQ9) [facility] Start: 1952 Depression screening using PHQ-9 (Patient Health Questionnaire 9) score [facility] Start: 01-06-1950 Diabetic foot examination [facility] Start: 01-06-1950 Glaucoma screening [facility] Start: 01-06-1950 Microalbumin measurement, urine, quantitative Urine Microalbumin [facility] Start: 01-06-1950 Ophthalmic examination and evaluation Ophthalmology Exam [facility] Start: 01-06-1950 Urine screening for protein Urine Microalbumin [facility] Start: 01-06-1946 Pneumococcal Vaccine: Age 65+ (1 of 4 - PCV13) Pneumococcal Vaccine: Age 65+ (1 of 4 - PCV13) [facility] Start: 01-06-1943 History and physical examination, annual for health maintenance Wellness Visit [facility] Start: 1940 Fall risk assessment Falls Risk Assessment [facility] Start: 1940 Hemoglobin A1c measurement A1C [facility] Start: 1940 Screening for osteoporosis Dexa Scan [facility] Start: 1940 Screening mammography Mammogram [facility] Start: 1940 Tetanus vaccination Tetanus: Every 10yrs [facility] Payers Date Payer Category Payer Unknown 2014 Unknown 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 [id number] 2014-Present [id number] 2014 Unknown [id number] 2004 Medicare 2004 Medicare MEDICARE MEDICAR E PART A & B [id number] 2004-Present [place] [id number] 2004 Medicare [id number] 1940 Unknown [id number] 1940 Unknown [id number] 1940 Unknown [id number] 1940 Unknown [id number] 1940 Unknown [id number] 1940 Unknown [id number] 1940 Unknown [id number] 1940 Unknown [id number] Social History Date Type Detail Facility Start: 12-12-2020 End: 05-12-2022 Tobacco smoking status NHIS Never smoker [facility] Start: 12-12-2020 End: 05-12-2022 Tobacco use and exposure Never used [facility] Start: 12-12-2020 End: 10-26-2023 Alcohol intake Lifetime non-drinker (finding) [facility] Start: 12-12-2020 History SDOH Alcohol Frequency 1 [facility] Start: 1940 [facility] Start: 05-02-2022 End: 11-17-2022 Exposure to SARS-CoV-2 (event) Not sure [facility] Start: 12-12-2020 End: 07-22-2023 History of Social function [facility] Start: 12-12-2020 End: 07-22-2023 Alcohol Use Disorder Identification Test - Consumption [AUDIT-C] [facility] How often to you hav e a drink containing alcohol? Never [facility] Average Number of Drinks [facility] Start: 12-12-2020 Gender identity Identifies as female gender (finding) [facility] Start: 04-01-2021 Sexual orientation Heterosexual (cherry huang) [facility] Clinical Notes 04-01-2021 to 10-26-2023 Romario Andrews, SOFIYA - 10/26/2023 5:30 PM Romario Tian, SOFIYA - 06/01/2023 4:57 PM ROMEOTByuliya Andrews DPM - 02/16/2023 4:46 PM EDT Note Date & Type Note Facility 10-26-2023 History of Presen t illness Narrative Subjective :Pt is a 83 y.o. female seen at the office complaining of painful fungal toe nails . Pt is wanting treatment today. Patient has a history of chronic swelling, lichenification hemosiderin deposits to the lower legs. Patient fortunately does not have on any support hose today. Objective: Int: Toe nails 1, 2, 3, 4, or 5both feet Thick, yellow, dystrophic, crumbly , painful with subungal debris. Patient has significant lichenification and hemosiderin deposits of both lower legs. No open wounds noted. Neuro: Diminished bilateral feet. Vas: DP - palpable, both feetPTpalpable, both feet Musculoskeletal-patient has nonpitting edema both lower legs and feet. The patient had no pain in either calf. Assessment: Onychomycosis of toenails 1 through 5 bilateral feet. Diabetic neuropathy and lymphedema both lower legs and feet. Plan: I debrided toe nails 1-5 amy feet with nail nippers. I also discussed treatment for the nail fungus which includes topical , oral or surgical removal. I discussed treating the lichenification with daily Xeroform dressings and then following up in the office weekly for debridements however family did not feel that the time to take care of this. Patient was encouraged to wear her knee-high's compression hose and call if she has any wound or cellulitis issues. RTC 3 months. Procedures documented in this encounter [facility] 06-01-2023 History of Presen t illness Narrative Patient: Mony Worley Date of : 1940 (83 y.o.) PCP: Cristian Phillip, SASKIA Procedures I debrided toenails 1 through 5 [...] C) (Infrared) Laboratory and Additional Data Reviewed: Reviewed:[id number]} XR Foot Right 3+ Views (Standard) X-rays 3 views right foot: There is calcification of the capsule of the first metatarsal phalange joint. Patient has a medial bony prominence consistent with a bunion deformity. 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 A contracted second hammertoe is noted. There is osteoporosis throughout the foot documented in this encounter [facility] 02-16-2023 History of Presen t [...] 3 months. Procedures documented in this encounter [facility] 02-16-2023 History of Presen t [...] 3 months. Procedures documented in this encounter [facility] 11-17-2022 History of Presen t [...] 3 months. Procedures documented in this encounter [facility] 05-12-2022 History of Presen t illness Narrative Patient Name: Mony Worley MR #: [id number] : 1940 Gender: female. Date of Consultation: [...] bilateral. Neurological: Diminished bilateral feet with a [place] Carmina 5.0 7 monofilament. Patient cannot feel [...] above physician 05/12/22 documented in this encounter [facility] 04-01-2021 Miscellaneous Notes Problem: Actual [...] normal ST Segments: ST segments normal normal HI interval normal QRS interval normal QT interval Clinical impression: non-specific ECG documented in this encounter [facility] 04-01-2021 History and physi alessandra note [facility] Medicine Inpatient H&P 04/01/2021 Imelda Hirsch CNP [facility] Patient: Mony Worley Date of [...] normal ST Segments: ST segments normal normal HI interval normal QRS interval normal QT interval [...] with resultant grade 1 subluxation at L4-5. [employer] Workstation ID: [id number] Pending Lab and Radiology [...] for immediate consultation if requested by the AUTOMOTIVE PAINTER HELPER. documented in this encounter [facility] 04-01-2021 Emergency departm ent Note [...] Note: NAME: Mony Worley 81 y.o. CSN: [id number] PCP: Cristian Phillip CNP ED Course / [...] Social Gatherings with Friends and Family: Attends Buddhism Services: Active Member of Clubs or Organizations: [...] Procedure Abnormality Status --------- ------ CBC Auto Differential[[id number]] Abnormal Final result Please view results for these tests on the individual orders. URINALYSIS LACTIC ACID, PLASMA CT Abdomen Pelvis Without Contrast Final Result 1. Mild diffuse adynamic ileus pattern without evidence of bowel obstruction. 2. Severe aortic atherosclerosis. 3. 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 [employer] Workstation ID: [id number] Procedures: Procedures Fredy Horton MD ED Physician Emergency Department (Please note that portions of this note have been completed with a voice recognition software. 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 Pt states blood glucose was 278 at home. Glucose was 126 per EMS just prior to arriving to ED. Pt states she feels better after fluids administered by EMS. 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 (HCC) [facility] Diagnosis Bunion- Primary Foot callus Corns and callosities Onychomycosis Dermatophytosis of nail 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 * Ileus: General Info (Urdu) [facility] Purpose Family History No Family History Records FoundNo Family History Records FoundNo Family History Records FoundNo Family History Records Found Advance Directives No Advanced Directives Records FoundDocuments on File Type Date Recorded Patient Trend Investigator Expl anation Advance Directives and Livin g Will 12/12/2020 12:16 PM Documents on File Type Date Recorded Patient Trend Investigator Expl anation Advance Directives and Livin g [...] Odonnell Note Recipients: Sly Pedersen MD - [id number] [] Discharge: Summary: Admission Date: .06-Dec-2019 04:00:00 Discharge Date: 09-Dec-2019 Attending Physician at Discharge: Sushil Odonnell Admission Reason: Nausea, vomiting and diarrhea(1) Final Discharge Diagnoses: Acute kidney injury superimposed on chronic kidney disease, Dehydration, Nausea and vomiting, Procedures: 1. Nephrology consultation 2. Renal ultrasound 12/09/2019 Condition at Discharge: Satisfactory Disposition at Discharge: .Home Vital Signs: T PRBPSpO2 [id number]/6492% Date/Time12/08 7: 7: 7: 7: 7:00 Range(36.7C [...] be sent through Care Everywhere. * Contusion (Urdu) documented in this encounter Assessments Diagnosis Fall, initial encounter- Primary Chest wall pain Painful respiration Closed head injury, initial encounter Additional Source Comments INFORMATION SOURCE (unrecogn ized section and content) DATE CREATED AUTHOR AUTHOR'S ORGANIZ ATION 11/25/2020 [facility] DATE CREATED AUTHOR AUTHOR'S ORGANIZ ATION 07/29/2023 [facility] DATE CREATED AUTHOR AUTHOR'S ORGANIZ ATION 10/30/2023 [facility] Reason for Visit (unrecogniz ed section and [...] Reason Comments Nail Care Diabetic a1c 6.2 Reason Comments Nail Care Patient presents for diabetic nail care. Last A1C 6.3 Arnie Dimas MD - 12/12/2020 12:47 PM Uli Gotti II, RN - 12/12/2020 12:00 PM ROMEOTSheryl Carias - 12/12/2020 11:59 AM EDT ED Notes (unrecognized secti on and content) [facility] ED Attending Note: NAME: Mony Worley 80 y.o. CSN: [id number] PCP: Cristian Phillip CNP History: Chief Complaint: [...] file Gets together: Not on file Attends quaker service: Not on file Active member of [...] disc bulge and mild spinal stenosis L4-5. [employer] Workstation ID: [id number] CT Lumbar Spine Without Contrast Reconstructed Preliminary Result 1. Degenerative changes of the thoracolumbar spine. No acute fracture or process is seen. 2. Degenerative grade 1 spondylolisthesis of L4 on L5 with broad-based disc bulge and mild spinal stenosis L4-5. [employer] Workstation ID: [id number] CT Chest Abdomen Pelvis [...] Leiomyomas. 6. Degenerative changes of the spine. [employer] Workstation ID: [id number] CT Cervical Spine Without Contrast Preliminary Result 1. Degenerative changes of the cervical spine with spinal stenosis at C5-6. No acute fracture. [employer] Workstation ID: [id number] CT Head Or Brain Without Contrast Final Result 1. No posttraumatic or acute intracranial abnormality is seen. 2. Expected age-related atrophy is noted. Patient does have a few small deep white matter hypodensities suggestive of incidental small lacunar infarcts. 3. Dense opacification of the right maxillary sinus suggests chronic sinus disease. Remaining included sinuses and mastoid air cells are clear. [facility] Workstation ID: [id number] ED Course / Medical [...] head injury, initial encounter Arnie Dimas MD [facility] Emergency Department (Please note that portions [...] [id number] (New Bag - Provider: Barbi Boland RN)1505 (New Bag - Provider: Griselda Matt RN)1505 (Paused - Provider: Maryjane Brantley RN)1506 (Restarted - Provider: Maryjane Brantley, RN)1506 (Paused - Provider: Maryjane Brantley, RN)1506 (Paused - Provider: Maryjane Brantley, RN)1506 (Paused - Provider: Maryjane Brantley, RN)1507 (Paused - Provider: Maryjane Brantley, RN)1507 (Rate/Dose Change - Provider: Maryjane Brantley, RN)1507 (Paused - Provider: Maryjane Brantley, RN)1509 (Paused - Provider: Maryjane Brantley, RN)1510 (Paused - Provider: Maryjane Brantley RN)1510 (Paused - Provider: Maryjane Brantley RN)1511 (Rate/Dose Change - Provider: Maryjane Brantley RN)1821 (Paused - Provider: Maryjane Brantley RN)1823 (Restarted - Provider: Maryjane Brantley RN)1823 (Paused - Provider: Maryjane Brantley RN)1827 (Restarted - Provider: Maryjane Brantley RN)1827 (Paused - Provider: Maryjane Brantley RN)1829 (Paused - Provider: Maryjane Brantley RN)1836 (Rate/Dose Change - Provider: Maryjane Brantley RN)2000 (Rate/Dose Verify - Provider: aMryjane Brantley RN)2301 (Paused - Provider: Maryjane Brantley [...] Hare RN)1356 (Rate/Dose Verify - Provider: Martha Hare, RN)1605 (Paused - Provider: Martha Hare RN)1608 (Restarted - Provider: Martha Hare RN)1611 (Rate/Dose Verify - Provider: Martha Hare RN)1637 (Stopped - Provider: Martha Hare RN) PRN Medication Order 03/31/2021 04/01/2021 04/02/2021 acetaminophen (TYLENOL) tablet 650 mg 650 mg, Oral, Every 4 hours PRN, mild pain, fever 100.4 F or greater, headaches, Starting on Laurie 04/01/21 at 0550 hydrALAZINE (APRESOLINE) injection 10 mg 10 mg, Intravenous, Every 4 hours PRN, SBP>160, Starting on Mon04/02/21 at 0856 ondansetron (ZOFRAN) injection 4 mg(Linked Group 2) 4 mg, Intravenous, Every 6 hours PRN, nausea, vomiting, Starting on Laurie 04/01/21 at 0550, Use oral route first, if tolerated. 1706 (See Alternativ e - Provider: Martha Hare RN) ondansetron (ZOFRAN-ODT) disintegrating tablet 4 mg(Linked Group 2) 4 mg, Oral, Every 6 hours PRN, nausea, vomiting, Starting on Laurie 04/01/21 at 0550, Use oral route first, if [...] Teams (unrecognized sec tion and content) Mail Deliverer Relationship Specialty Start Date End Date Cristian Phillip CNP [address] [place] [address] PCP - General Nurse Practitioner 12/12/20 Mail Deliverer Relationship Specialty Start Date End Date Cristian Phillip CNP [address] [place] [address] PCP - General Nurse Practitioner 12/12/20 Mail Deliverer Relationship Specialty Start Date End Date Cristian Phillip CNP [address] [place] [address] PCP - General Nurse Practitioner 12/12/20 Mail Deliverer Relationship Specialty Start Date End Date Cristian Phillip CNP [address] [place] [address] PCP - General Nurse Practitioner 12/12/20 Mail Deliverer Relationship Specialty Start Date End Date Lou Cristian SASKIA Woodruff [address] [place] [id number] PCP - General Nurse Practitioner 12/12/20 FOR [...] THE PRIMARY CLINICAL RECORDS. [facility] [employer] [facility]. provides no warranty or guarantee of the accuracy or completeness of information in this document.
[2023-11-09 11:49] VITALS: BP 132/44; PULSE 64; RESP 16; TEMP 36.1; O2SAT 96; BMI 37.3
[2023-11-09 11:53] LABS: Albumin, Serum 2.8 g/dL (3.2-5.0); BUN 51 mg/dL (7-18); BUN/Creat Ratio 32.7 RATIO (10-20); Calcium,Total 8.7 mg/dL (8.5-10.1); Chloride 115 mmol/L (98-107); Creatinine, Serum 1.56 mg/dL (0.55-1.02); EST Glomerular Filtration Rate 34 mL/min (>60); Est Glom Filt Rate - Afr Amer 41 mL/min (>60); Estimated Creatinine Clearance 33.43 ml/min; Glucose 79 mg/dL (74-106); Phosphorus 2.6 mg/dL (2.5-4.9); Sodium Level 144 mmol/L (136-145)
[2023-11-09] MEDS: Epoetin Alfa epbx 10,000 UNITS/ML 12000 UNIT SC (12:07)
== END 2023-11-09 11:06 | disposition home or self-care (01) ==
LOC: MEDOUTP 11:05
PROVIDERS: PCP Family Medicine; Referring Provider Internal Medicine Nephrology; Visit Provider Internal Medicine Nephrology
DX: N18.4 Chronic kidney disease, stage 4 (severe) (principal); D63.1 Anemia in chronic kidney disease
CPT/HCPCS: 36415; 80069; 85025; 96372; Q5106

== ENCOUNTER 2023-11-23 10:56 | Outpatient (CLI) | payer MEDICARE, OTHER, SELFPAY ==
[2023-11-23 11:20] LABS: Albumin, Serum 2.9 g/dL (3.2-5.0); BUN 59 mg/dL (7-18); Calcium,Total 9.2 mg/dL (8.5-10.1); Chloride 115 mmol/L (98-107); Creatinine, Serum 1.79 mg/dL (0.55-1.02); EST Glomerular Filtration Rate 29 mL/min (>60); Est Glom Filt Rate - Afr Amer 35 mL/min (>60); Glucose 68 mg/dL (74-106); Phosphorus 2.7 mg/dL (2.5-4.9); Potassium 4.2 mmol/L (3.5-5.1); Sodium Level 146 mmol/L (136-145)
[2023-11-23 11:28] LABS: Absolute Lymphocyte Count 1.35 X10^3/uL (0.83-4.51); Absolute Neutrophil Count 5.8 X10^3/uL (2.0-7.7); Basophil# 0.05 X10^3/uL; Basophil% 0.6 % (0-1); Eosinophils% 3.7 % (0-5); Hemoglobin 9.4 g/dL (12.0-15.0); Lymphocyte # 1.35 X10^3/ul (0.83-4.51); Lymphocyte % 16.6 % (19-41); Mean Corp Hgb Conc 31.3 g/dL (32-36); Mean Corpuscular Hgb 33.7 pg (27.0-32.0); Mean Corpuscular Volume 107.5 fL (81-99); Mean Platelet Vol. 9.9 fl (6.2-12.0); Monocyte# 0.65 X10^3/uL; NRBC Flagged by Analyzer 0 % (0-5); Neutrophil # 5.77 X10^3/uL (2.7-7.7); Neutrophil % 70.7 % (47-70); Platelet Count 291 K/mm3 (150-450); RBC Distribution Width CV 14.1 % (11.6-14.6); RBC Distribution Width SD 55.6 fl (35.1-43.9); Red Blood Count 2.79 M/mm3 (4.2-5.4); White Blood Count 8.2 K/mm3 (4.4-11.0)
[2023-11-23 11:38] VITALS: BP 131/81; PULSE 65; RESP 16; TEMP 36.1; O2SAT 97; BMI 37.3
[2023-11-23] MEDS: Epoetin Alfa epbx 10,000 UNITS/ML 12000 UNIT SC (12:20)
== END 2023-11-23 10:57 | disposition home or self-care (01) ==
LOC: MEDOUTP 10:56
PROVIDERS: PCP Family Medicine; Referring Provider Internal Medicine Nephrology; Visit Provider Internal Medicine Nephrology
DX: N18.4 Chronic kidney disease, stage 4 (severe) (principal); D63.1 Anemia in chronic kidney disease
CPT/HCPCS: 36415; 80069; 85025; 96372; Q5106

== ENCOUNTER 2023-12-07 11:04 | Outpatient (CLI) | payer MEDICARE, OTHER, SELFPAY ==
[2023-12-07 11:18] LABS: Absolute Lymphocyte Count 1.29 X10^3/uL (0.83-4.51); Absolute Neutrophil Count 7.1 X10^3/uL (2.0-7.7); Basophil# 0.06 X10^3/uL; Basophil% 0.6 % (0-1); Eosinophil# 0.25 X10^3/uL; Eosinophils% 2.6 % (0-5); Hematocrit 30.7 % (37-47); Hemoglobin 9.2 g/dL (12.0-15.0); Lymphocyte # 1.29 X10^3/ul (0.83-4.51); Lymphocyte % 13.5 % (19-41); Mean Corpuscular Hgb 31.9 pg (27.0-32.0); Mean Corpuscular Volume 106.6 fL (81-99); Mean Platelet Vol. 9.7 fl (6.2-12.0); Monocyte# 0.82 X10^3/uL; Monocyte% 8.6 % (0-10); NRBC Flagged by Analyzer 0 % (0-5); Neutrophil # 7.09 X10^3/uL (2.7-7.7); Neutrophil % 74.2 % (47-70); Platelet Count 266 K/mm3 (150-450); RBC Distribution Width CV 13.7 % (11.6-14.6); RBC Distribution Width SD 53.1 fl (35.1-43.9); Red Blood Count 2.88 M/mm3 (4.2-5.4); White Blood Count 9.6 K/mm3 (4.4-11.0)
[2023-12-07 11:30] LABS: Albumin, Serum 2.8 g/dL (3.2-5.0); BUN 56 mg/dL (7-18); BUN/Creat Ratio 30.3 RATIO (10-20); Calcium,Total 8.7 mg/dL (8.5-10.1); Chloride 114 mmol/L (98-107); Creatinine, Serum 1.85 mg/dL (0.55-1.02); EST Glomerular Filtration Rate 28 mL/min (>60); Est Glom Filt Rate - Afr Amer 33 mL/min (>60); Glucose 89 mg/dL (74-106); Phosphorus 2.9 mg/dL (2.5-4.9); Potassium 4.4 mmol/L (3.5-5.1); Sodium Level 142 mmol/L (136-145)
[2023-12-07 12:00] VITALS: BP 135/78; PULSE 78; RESP 16; TEMP 36.2; O2SAT 98
[2023-12-07] MEDS: Epoetin Alfa epbx 10,000 UNITS/ML 12000 UNIT SC (12:12)
== END 2023-12-07 11:05 | disposition home or self-care (01) ==
LOC: MEDOUTP 11:04
PROVIDERS: PCP Family Medicine; Referring Provider Internal Medicine Nephrology; Visit Provider Internal Medicine Nephrology
DX: N18.4 Chronic kidney disease, stage 4 (severe) (principal); D63.1 Anemia in chronic kidney disease
CPT/HCPCS: 36415; 80069; 85025; 96372; Q5106

== ENCOUNTER 2023-12-21 08:09 | Outpatient (CLI) | payer MEDICARE, OTHER, SELFPAY ==
[2023-12-21 11:20] LABS: Absolute Lymphocyte Count 1.26 X10^3/uL (0.83-4.51); Absolute Neutrophil Count 5.6 X10^3/uL (2.0-7.7); Basophil# 0.03 X10^3/uL; Basophil% 0.4 % (0-1); Eosinophil# 0.21 X10^3/uL; Eosinophils% 2.7 % (0-5); Hemoglobin 9.5 g/dL (12.0-15.0); Lymphocyte # 1.26 X10^3/ul (0.83-4.51); Lymphocyte % 16.2 % (19-41); Mean Corp Hgb Conc 30.6 g/dL (32-36); Mean Corpuscular Hgb 32.4 pg (27.0-32.0); Mean Corpuscular Volume 105.8 fL (81-99); Mean Platelet Vol. 10.3 fl (6.2-12.0); Monocyte# 0.65 X10^3/uL; Monocyte% 8.4 % (0-10); NRBC Flagged by Analyzer 0 % (0-5); Neutrophil # 5.59 X10^3/uL (2.7-7.7); Neutrophil % 71.9 % (47-70); Platelet Count 248 K/mm3 (150-450); RBC Distribution Width CV 13.3 % (11.6-14.6); RBC Distribution Width SD 51.8 fl (35.1-43.9); Red Blood Count 2.93 M/mm3 (4.2-5.4); White Blood Count 7.8 K/mm3 (4.4-11.0)
[2023-12-21 11:36] LABS: BUN 53 mg/dL (7-18); BUN/Creat Ratio 30.6 RATIO (10-20); Calcium,Total 8.7 mg/dL (8.5-10.1); Chloride 113 mmol/L (98-107); Creatinine, Serum 1.73 mg/dL (0.55-1.02); EST Glomerular Filtration Rate 30 mL/min (>60); Est Glom Filt Rate - Afr Amer 36 mL/min (>60); Ferritin 89 ng/mL (8-252); Glucose 54 mg/dL (74-106); Iron 44 ug/dL (50-170); Iron Binding Capacity,Total 209 ug/dL (250-450); PERCENT IRON SATURATION 21.1 % (15.0-55.0); Phosphorus 3.1 mg/dL (2.5-4.9); Sodium Level 143 mmol/L (136-145)
[2023-12-21] MEDS: Epoetin Alfa-EPBX 20,000 unit/ml 12000 UNIT SC (11:48)
[2023-12-21 11:53] VITALS: BP 136/52; PULSE 63; RESP 16; TEMP 36.4; O2SAT 97
== END 2023-12-21 08:10 | disposition home or self-care (01) ==
LOC: MEDOUTP 08:09
PROVIDERS: PCP Family Medicine; Referring Provider Internal Medicine Nephrology; Visit Provider Internal Medicine Nephrology
DX: N18.4 Chronic kidney disease, stage 4 (severe) (principal); D63.1 Anemia in chronic kidney disease
CPT/HCPCS: 36415; 80069; 82728; 83540; 83550; 85025; 96372; Q5106